=== PATIENT | female | born 1965 | race Caucasian/White ===

== ENCOUNTER 2017-01-08 15:53 | Emergency (ER) | payer OTHER, MEDICARE ==
[~2017-01-08] VITALS: Ht 162.6 cm; Wt 71.2 kg
[~2017-01-08 15:53] MED LIST: ALPR0.254 PO; ATOR40TA70 PO; CEFD300C3 PO; DIPH1TAB25 PO; ESTR42.52 VG; IMAT400T PO; LANS30CA PO; LEVO200T6 PO; MULT-985 PO; ONDA8TAB13 PO; PNV1TABL82 PO; POLY15DR14 OU; VALA1000 PO; [UNRECOGNIZED DRUG - CODE] INJ
[2017-01-08] MEDS ORDERED: LEVO175T5 (16:11)
--- NOTE | 2017-01-08 16:21 | ED Headache ---
General Chief Complaint: Head/Cervical Problems Stated Complaint: HEAD PAIN Nursing Triage Note: ARRIVED VIA AMB TO ROOM 08 WITH COMPLAINTS OF A AREA ON TOP OF HER HEAD THAT STARTED A BUMP THAT IS NOW RED ET PAINFUL AND SHE THINKS IT IS SPREADING INTO HER FOREHEAD. Nursing Sepsis Screen: No Definite Risk Source: patient History of Present Illness Time seen by provider: 16:16 Initial Comments Patient had the freezer door hit the top of her head knocking her sunglasses a few days ago. That area has now become red swollen tender and painful. He thinks it is spreading. No fevers. She has had upper respiratory infection symptoms. Allergies and Home Medications Allergies Coded Allergies: No Known Drug Allergies (Unverified , 10/08/15) Home Medications Levothyroxine Sodium 175 Mcg Tablet #90 (Reported) Constitutional: no symptoms reported Respiratory: no symptoms reported Cardiovascular: no symptoms reported Skin: see HPI Past Cssnrbc-Jazevn-Dffees Hx Patient Social History Recent Foreign Travel: No Contact w/Someone Who Travel: No Recent Infectious Disease Expo: No Recent Hopitalizations: No Immunizations Up To Date Tetanus Booster (TDap): Unknown Date of Influenza Vaccine: Oct 10, 2015 Surgeries HX Surgeries: Yes (bone marrow transplant, spleen) Surgeries: Gallbladder Respiratory Hx Respiratory Disorders: Yes Cardiovascular Hx Cardiac Disorders: Yes Cardiac Disorders: High Cholesterol Neurological Hx Neurological Disorders: No Reproductive System Hx Reproductive Disorders: No Sexually Transmitted Disease: No Genitourinary Hx Genitourinary Disorders: No Gastrointestinal Hx Gastrointestinal Disorders: No Musculoskeletal Hx Musculoskeletal Disorders: No Endocrine Hx Endocrine Disorders: Yes Endocrine Disorders: Hypothyroidsim HEENT HX ENT Disorders: No Cancer Hx Cancer: Yes Cancer: Leukemia Psychosocial Hx Psychiatric Problems: No Integumentary HX Skin/Integumentary Disorder: No Blood Transfusions Hx Blood Disorders: No Adverse Reaction to a Blood Tr: Yes (high fever) Reviewed Nursing Assessment Reviewed/Agree w Nursing PMH: Yes Physical Exam Vital Signs Vital Sign - Last 12Hours 01/08/17 16:06 Temp 97.7 Pulse 99 Resp 18 B/P 155/98 Pulse Ox 98 Capillary Refill : Less Than 3 Seconds General Appearance: WD/WN no apparent distress Neck: supple Cardiovascular: regular rate, rhythm Respiratory: lungs clear Gastrointestinal: soft Extremities: normal inspection Psychiatric: alert Crainal Nerves: normal speech PERRL Coordination/Gait: normal gait Skin: normal color warm/dry other (there is a quarter sized area of redness swelling and tenderness erythema to the vertex of the scalp. No fluctuance) Progress/Results/Core Measures Results/Orders Vital Signs/I&O Vital Sign - Last 12Hours 01/08/17 16:06 Temp 97.7 Pulse 99 Resp 18 B/P 155/98 Pulse Ox 98 Blood Pressure Mean: 117 Departure Impression Impression: Primary Impression: Cellulitis of scalp Disposition: HOME, SELF-CARE Condition: Stable Departure-Patient Inst. Decision time for Depature: 16:17 Referrals: MALA PEREZ DO (PCP/Family) Primary Care Physician Patient Instructions: Cellulitis and Erysipelas (Skin Infections) Scripts Terbinafine HCl (Lamisil At)30 Gm Cream..g.30 Gm TP BID #1 TUBE Prov:BROOK WALLACE MD 01/08/17 Cephalexin (Keflex)500 Mg [id number] Mg PO TID #30 CAP Prov:BROOK WALLACE MD 01/08/17 BROOK WALLACE MD Jan 08, 2017 16:21
[2017-01-08] MEDS ORDERED: TERB12CR3 TP (16:23)
[2017-01-08] MEDS ORDERED: CEPH-507 PO (16:23)
[2017-01-08 16:26] VITALS: BP 155/98
== END 2017-01-08 16:26 | disposition home or self-care (01) ==
LOC: EDUNIT# 15:53 → ER 15:55
DX: L03.811 Cellulitis of head [any part, except face] (principal)
CPT/HCPCS: 99282

== ENCOUNTER → 2017-07-30 | Outpatient (CLI) | payer OTHER, MEDICARE ==
[~2017-07-30] MED LIST changes: +CEPH-507 PO; +LEVO175T5; +OCTR10VI3 INJ; +TERB12CR3 TP; -[UNRECOGNIZED DRUG - CODE] INJ
--- NOTE | 2017-07-30 15:32 | Diagnostic Imaging Report ---
PROCEDURE: US Thyroid. TECHNIQUE: Multiple Real-time grayscale images were obtained of the thyroid in various projections. INDICATION: Thyromegaly. Thyroid nodule. FINDINGS: Both lobes measure approximately 1 x 2 cm. No solid or cystic mass is seen within either lobe. No abnormality adjacent to either lobe is seen. There is no abnormal vascularity. IMPRESSION: No nodule or other abnormality is seen. Dictated by: Dictated on workstation # [id number]
== END ==
LOC: RAD 11:37
PROVIDERS: ATTEND Internal Medicine
DX: E04.1 Nontoxic single thyroid nodule (principal)
CPT/HCPCS: 76536

== ENCOUNTER 2018-08-06 15:38 | Observation (INO) | payer OTHER, MEDICARE ==
[~2018-08-06] VITALS: Ht 162.6 cm; Wt 74.1 kg
[~2018-08-06 15:38] MED LIST changes: -LEVO175T5; +LEVO175T5 PO
[2018-08-06] MEDS ORDERED: DOCUSATE SODIUM 100 MG (COLACE) CAP PO PRN (15:45)
[2018-08-06] MEDS ORDERED: HYDROcodone/APAP 5 MG/325 MG (LORTAB) TAB PO PRN (15:45)
[2018-08-06] MEDS ORDERED: ALPRAZolam 0.25 MG (XANAX) TAB PO PRN (15:45)
[2018-08-06] MEDS ORDERED: IBUPROFEN TABLET 200 MG TAB PO PRN (15:45)
[2018-08-06] MEDS ORDERED: ONDANSETRON 4 MG/2 ML (SDV) Z0FRAN IVP PRN (15:45)
[2018-08-06] MEDS ORDERED: PIPERACILLIN SODIUM/TAZOBACTAM 4.5 GM in NS (IVPB) 100 ML IV NR (15:45)
[2018-08-06] MEDS ORDERED: ACETAMINOPHEN 500 MG TAB (TYLENOL) PO PRN (15:45)
[2018-08-06 16:15] VITALS: BP 132/82
[2018-08-06] MEDS ORDERED: LANS30CA PO (16:32)
[2018-08-06] MEDS ORDERED: ATOR10TA66 PO (16:32)
[2018-08-06] MEDS ORDERED: OMEG-105 PO (16:32)
[2018-08-06] MEDS ORDERED: URSO300C3 PO (16:32)
[2018-08-06] MEDS ORDERED: VALA1000 PO (16:32)
[2018-08-06] MEDS ORDERED: RT-ALBUTEROL SULF 2.5 MG/3 ML PRE-MIX VIAL INH PRN (17:00)
--- NOTE | 2018-08-06 17:08 | Diagnostic Imaging Report ---
EXAM: CHEST PA/LAT (2 VIEW) INDICATION: Coughing. Wheezing. Dizziness. Shortness of air. COMPARISON: Chest radiograph 10/08/2015. FINDINGS: Normal heart size and pulmonary vascularity. Calcified aorta. No focal pulmonary opacity, pleural effusion or pneumothorax. Cholecystectomy clips. IMPRESSION: No acute cardiopulmonary findings. Dictated by: Dictated on workstation # [id number]
[2018-08-06 17:28] LABS: BASOPHILS # (AUTO) 0.3 10^3/uL (0.0-0.1); BASOPHILS % (AUTO) 2 % (0-10); EOSINOPHILS # (AUTO) 0.5 10^3/uL (0.0-0.3); EOSINOPHILS % (AUTO) 4 % (0-10); HEMATOCRIT 43 % (35-52); HEMOGLOBIN 14.6 G/DL (11.5-16.0); LYMPHOCYTES # (AUTO) 4.6 X 10^3 (1.0-4.0); LYMPHOCYTES % (AUTO) 31 % (12-44); MEAN CORPUSCULAR HEMOGLOBIN 32 PG (25-34); MEAN CORPUSCULAR HGB CONC 34 G/DL (32-36); MEAN CORPUSCULAR VOLUME 93 FL (80-99); MONOCYTES # (AUTO) 1.6 X 10^3 (0.0-1.0); MONOCYTES % (AUTO) 11 % (0-12); NEUTROPHILS # (AUTO) 7.8 X 10^3 (1.8-7.8); NEUTROPHILS % (AUTO) 53 % (42-75); PLATELET COUNT 369 10^3/uL (130-400); RED BLOOD COUNT 4.57 10^6/uL (4.35-5.85); RED CELL DISTRIBUTION WIDTH 14.3 % (10.0-14.5); WHITE BLOOD COUNT 14.7 10^3/uL (4.3-11.0)
[2018-08-06] MEDS: NS IV 1000 ML 1,000 ML IV SCH (17:37)
[2018-08-06] MEDS: HYDROCODONE/CHLOR 10MG/5 ML (TUSSIONEX SUSP) 5ML UDC PO SCH ×2 (17:37→20:48)
[2018-08-06] MEDS: methylPREDNISolone 40 MG/ML (Solu-MEDROL) VIAL IV SCH (17:40)
[2018-08-06 17:43] LABS: ALBUMIN 4.4 GM/DL (3.2-4.5); BILIRUBIN,TOTAL 0.5 MG/DL (0.1-1.0); CREATININE SERUM 1.11 MG/DL (0.60-1.30); POTASSIUM 3.6 MMOL/L (3.6-5.0); TOTAL PROTEIN 8.7 GM/DL (6.4-8.2)
[2018-08-06 17:49] LABS: BAND NEUTROPHILS 4 %; BASOPHILS % (MANUAL) 1 %; EOSINOPHILS % (MANUAL) 2 %; LYMPHOCYTES % (MANUAL) 38 %; MONOCYTES % (MANUAL) 7 %; NEUTROPHILS % (MANUAL) 48 %; RBC MORPH NORMAL
[2018-08-06] MEDS: RT-ALBUTEROL SULF 2.5 MG/3 ML PRE-MIX VIAL INH SCH ×2 (19:16→22:17)
[2018-08-06 19:30] VITALS: BP 136/84
[2018-08-06 20:35] LABS: BILIRUBIN,URINE NEGATIVE (NEGATIVE); CLARITY,URINE CLEAR; COLOR,URINE YELLOW; GLUCOSE, URINE (UA) NEGATIVE (NEGATIVE); KETONES,URINE NEGATIVE (NEGATIVE); LEUKOCYTE ESTERASE ,URINE NEGATIVE (NEGATIVE); NITRITE,URINE NEGATIVE (NEGATIVE); PH,URINE 6 (5-9); PROTEIN,URINE 4+ (NEGATIVE); UROBILINOGEN,URINE NORMAL (NORMAL)
[2018-08-06] MEDS: PIPERACILLIN SODIUM/TAZOBACTAM 4.5 GM in NS (IVPB) 100 ML IV SCH (20:46)
[2018-08-06 20:49] LABS: BACTERIA,URINE TRACE /HPF; SQUAMOUS EPITHELIAL CELL,UR 0-2 /HPF; WBC,URINE RARE /HPF
[2018-08-06 23:54] VITALS: BP 115/60
[2018-08-07] MEDS: NS IV 1000 ML 1,000 ML IV SCH ×2 (01:43→08:19)
[2018-08-07] MEDS: methylPREDNISolone 40 MG/ML (Solu-MEDROL) VIAL IV SCH ×3 (01:43→12:36)
[2018-08-07] MEDS: RT-ALBUTEROL SULF 2.5 MG/3 ML PRE-MIX VIAL INH SCH ×3 (02:36→11:38)
[2018-08-07 03:19] VITALS: BP 130/71
[2018-08-07] MEDS: PIPERACILLIN SODIUM/TAZOBACTAM 4.5 GM in NS (IVPB) 100 ML IV SCH ×2 (04:10→12:36)
[2018-08-07 06:25] LABS: BASOPHILS % (AUTO) 0 % (0-10); EOSINOPHILS % (AUTO) 0 % (0-10); HEMATOCRIT 38 % (35-52); HEMOGLOBIN 12.7 G/DL (11.5-16.0); LYMPHOCYTES % (AUTO) 17 % (12-44); MEAN CORPUSCULAR HEMOGLOBIN 31 PG (25-34); MEAN CORPUSCULAR HGB CONC 33 G/DL (32-36); MEAN CORPUSCULAR VOLUME 94 FL (80-99); MEAN PLATELET VOLUME 10.5 FL (7.4-10.4); MONOCYTES # (AUTO) 0.2 X 10^3 (0.0-1.0); MONOCYTES % (AUTO) 2 % (0-12); NEUTROPHILS # (AUTO) 9.3 X 10^3 (1.8-7.8); NEUTROPHILS % (AUTO) 81 % (42-75); PLATELET COUNT 336 10^3/uL (130-400); RED BLOOD COUNT 4.04 10^6/uL (4.35-5.85); RED CELL DISTRIBUTION WIDTH 14.5 % (10.0-14.5); WHITE BLOOD COUNT 11.5 10^3/uL (4.3-11.0)
[2018-08-07 06:47] LABS: ALBUMIN 3.9 GM/DL (3.2-4.5); BILIRUBIN,TOTAL 0.2 MG/DL (0.1-1.0); CALCIUM 9.6 MG/DL (8.5-10.1); CREATININE SERUM 1.21 MG/DL (0.60-1.30); POTASSIUM 4.1 MMOL/L (3.6-5.0); TOTAL PROTEIN 7.2 GM/DL (6.4-8.2)
[2018-08-07 08:00] VITALS: BP 138/76
[2018-08-07] MEDS ORDERED: PREN-102 PO (08:38)
[2018-08-07] MEDS: HYDROCODONE/CHLOR 10MG/5 ML (TUSSIONEX SUSP) 5ML UDC PO SCH (09:54)
--- NOTE | 2018-08-07 09:56 | History & Physical-Hospitalist ---
SHERLYN LOPEZ MEDICAL STUDENT 08/07/18 0956: History of Present Illness HPI/Chief Complaint Ms. Bowman is a 53 year old female with a history of AML and CML s/p chemo, radiation, splenectomy, and BMT admitted for bacterial bronchitis vs. pneumonia. She believes this began, as it did when she was hospitalized for [facility] previously, after being exposed to aerosolized rat droppings. She had one week of congestion, headache, sinus pain and pressure that progressed. Over the 2 days prior to admission, she was having a productive cough, subjective fever, shortness of breath, and constant substernal chest pain that worsened with coughing. She took Dayquil, Nyquil, and ibuprofen for her symptoms. The Dayquil made her nap for several hours per day, which she states led to decreased PO intake. She delayed visiting Dr. Perez in clinic as she feared admission to the hospital. Since being admitted last night, she states that she is feeling much better. She now denies productive cough, chest pain, fever/ chills, and congestion. Date Seen 08/07/18 Time Seen by Provider: 09:00 Attending Physician Taina Perez DO PCP Taina Perez DO Referring Physician Date of Admission Aug 06, 2018 at 16:04 Home Medications & Allergies Home Medications Reviewed patient Home Medication Reconciliation performed by pharmacy medication reconciliations networking technician and/or nursing. Patients Allergies have been reviewed. Allergies Allergies Coded Allergies No Known Drug Allergies (Jqjtruhrvo93/8/15) Past Qnsihma-Omsizw-Pccbhd Hx Patient Social History Marrital Status: Number of living children: 3 Employed/Student: unemployed Alcohol Use: Denies Use Recreational Drug Use: No Smoking Status: Never a Smoker Physical Abuse Screen: No Sexual Abuse: No Recent Foreign Travel: No Contact w/other who traveled: No Recent Hopitalizations: No Recent Infectious Disease Expo: No Immunizations Up To Date Tetanus Booster (TDap): Unknown Date of Influenza Vaccine: Oct 10, 2015 Seasonal Allergies Seasonal Allergies: No Past Medical History Surgeries: Abdominal (Splenectomy, ovarian cyst removal), Gallbladder, Hysterectomy Respiratory: Asthma Currently Using CPAP: No Currently Using BIPAP: No Cardiac: High Cholesterol Reproductive: No Sexually Transmitted Disease: No Gastrointestinal: Gastroesophageal Reflux Musculoskeletal: Arthritis Endocrine: Hypothyroidsim Cancer: Leukemia What Type of Treatment Did You: Chemotherapy, Radiation Cancer: Oct History of Blood Disorders: No Adverse Reaction to Blood Lan: Yes (high fever) Review of Systems Constitutional: chills, fever EENTM: nose congestion Respiratory: see HPI, cough, short of breath Cardiovascular: chest pain Gastrointestinal: no symptoms reported Genitourinary: no symptoms reported Musculoskeletal: no symptoms reported Physical Exam Physical Exam Vital Signs Vital Signs - First Documented 08/06/18 08/06/18 16:15 16:45 Temp 100.4 Pulse 128 Resp 18 B/P (MAP) 132/82 (99) Pulse Ox 94 O2 Delivery Room Air FiO2 21 Capillary Refill : Height, Weight, BMI Height: 5'4.00" Weight: 163lbs. 4.8oz. 74.539289th; 28.0 BMI Method:Stated General Appearance: No Apparent Distress HEENT: Moist Mucous Membranes Respiratory: Chest Non Tender, Crackles (Faint occasional crackles at right lung base. Otherwise clear. ) Cardiovascular: No Edema, No Murmur, Tachycardia Skin: Normal Color, Warm/Dry Results Results/Procedures Labs Laboratory Tests 08/06/18 17:04 08/06/18 17:12 08/07/18 05:35 Patient resulted labs reviewed. Assessment/Plan Admission Diagnosis Fever of unknown origin Bronchitis Admission Status: Observation Assessment and Plan 53 year old female with history of AML and CML s/p chemo, radiation, and BMT admitted for fever likely resulting from bronchitis or atypical pneumonia given negative CXR. Bronchitis: White count trending down, pt afebrile overnight. -Sputum cultures pending, influenza negative. Will consider urine Legionella test. -Receiving methylprednisolone. Will discharge with PO steroids for 5 day course. -Zosyn Q8H. Will likely transition to doxycycline or azithromycin at discharge for 7 day course. Transaminitis: Could be secondary to atypical pneumonia. Patient denies heavy alcohol use. Trending down without further workup required. Proteinuria: Isolated without elevation in Cr. Consider microalbumin/Cr ratio. Clinical Quality Measures DVT/VTE Risk/Contraindication: Risk Factor Score Per Nursin RFS Level Per Nursing on Admit: 4+=Very High TAINA PEREZ DO 08/07/18 1233: History of Present Illness HPI/Chief Complaint CC: Cough with fever HPI: This is a 53yoWF clinic patient of mine with h/o AML and CML who presented to my clinic with fever and cough. She appeared to be ill and dehydrated and considering her h/o leukemia we decided to place in observation for CXR, labs and IVF along with IV steroids and IV abx empirically. Today she is feeling much better and wants to go home. Source: patient Exam Limitations: no limitations Time Seen by Provider: 11:00 Home Medications & Allergies Home Medications Reviewed Past Uaukohu-Jkytnz-Vloypw Hx Past Med/Social Hx: Reviewed Nursing Past Med/Soc Hx, Reviewed and Corrections made Patient Social History Marrital Status: Employed/Student: unemployed Alcohol Use: Denies Use Smoking Status: Never a Smoker Past Medical History Surgeries: Abdominal (Splenectomy, ovarian cyst removal), Gallbladder, Hysterectomy Respiratory: Asthma Cardiac: High Cholesterol Gastrointestinal: Gastroesophageal Reflux Musculoskeletal: Arthritis Endocrine: Hypothyroidsim Cancer: Leukemia What Type of Treatment Did You: Chemotherapy, Radiation Family History Hypertension Review of Systems Constitutional: see HPI, chills, fever, malaise, weakness EENTM: no symptoms reported Respiratory: see HPI, cough, short of breath, wheezing Cardiovascular: chest pain Gastrointestinal: no symptoms reported Genitourinary: no symptoms reported Musculoskeletal: no symptoms reported Skin: no symptoms reported Psychiatric/Neurological: No Symptoms Reported All Other Systems Reviewed Negative Unless Noted: Yes Physical Exam Physical Exam General Appearance: No Apparent Distress, WD/WN, Chronically ill, Other (ill) Eyes: Bilateral Eye Normal Inspection, Bilateral Eye PERRL HEENT: PERRL/EOMI, TMs Normal, Normal ENT Inspection, Pharynx Normal Neck: Full Range of Motion, Normal Inspection, Non Tender, Supple, Carotid Bruit Respiratory: Chest Non Tender, No Accessory Muscle Use, No Respiratory Distress , Crackles (Faint occasional crackles at right lung base. Otherwise clear. ), Decreased Breath Sounds, Wheezing Cardiovascular: Regular Rate, Rhythm, No Edema, No Gallop, No JVD, No Murmur, Normal Peripheral Pulses, Tachycardia Gastrointestinal: Normal Bowel Sounds, No Organomegaly, No Pulsatile Mass, Non Tender, Soft Back: Normal Inspection, No CVA Tenderness, No Vertebral Tenderness Extremity: Normal Capillary Refill, Normal Inspection, Normal Range of Motion, Non Tender, No Calf Tenderness, No Pedal Edema Neurologic/Psychiatric: Alert, Oriented x3, No Motor/Sensory Deficits, Normal Mood/Affect Skin: Normal Color, Warm/Dry Lymphatic: No Adenopathy Assessment/Plan Admission Diagnosis Acute bronchitis in leukemia survivor Admission Status: Observation Assessment and Plan Plan: DC home LFT elevation is chronic Diagnosis/Problems Diagnosis/Problems (1) Fever of unknown origin Status: Acute (2) Bronchitis Status: Acute (3) Wheezing Status: Acute (4) Leukocytosis Status: Acute Qualifiers: Leukocytosis type: leukemoid reaction Qualified Codes: D72.823 - Leukemoid reaction (5) Elevated liver enzymes Status: Chronic (6) Hyperlipidemia Status: Chronic Qualifiers: Hyperlipidemia type: pure hypercholesterolemia Qualified Codes: E78.00 - Pure hypercholesterolemia, unspecified SHERLYN LOPEZ MEDICAL STUDENT Aug 07, 2018 09:56 TAINA PEREZ DO Aug 07, 2018 12:33
[2018-08-07] MEDS ORDERED: VALACYCLOVIR 500 MG TAB (VALTREX) PO PRN (11:45)
[2018-08-07] MEDS ORDERED: PRED10TA22 PO (11:50)
[2018-08-07] MEDS ORDERED: CEFD300C3 PO (11:50)
[2018-08-07] MEDS ORDERED: ALBU1.25 IH (11:50)
[2018-08-07] MEDS ORDERED: HYDR473S34 PO (11:50)
[2018-08-07 12:00] VITALS: BP 144/70
[2018-08-07 13:40] VITALS: BP 144/70
[2018-08-07] MEDS ORDERED: OMEGA 3 (FISH OIL) 1000 MG CAP PO SCH (17:00)
[2018-08-07] MEDS ORDERED: ATORVASTATIN 10 MG (LIPITOR) TABLET PO SCH (21:00)
[2018-08-08] MEDS ORDERED: LEVOTHYROXINE 50 MCG (LEVOTHROID) TAB PO SCH (06:30)
[2018-08-08] MEDS ORDERED: LEVOTHYROXINE 125 MCG (LEVOTHROID) TABLET PO SCH (06:30)
[2018-08-08] MEDS ORDERED: PANTOPRAZOLE 40 MG (PROTONIX) TAB PO SCH (07:00)
[2018-08-08] MEDS ORDERED: PRENATAL VITAMIN 1 EA TAB PO SCH (07:00)
== END 2018-08-07 11:50 | disposition home or self-care (01) ==
LOC: 4TH 16:04 → UNDOADMOB 16:04 → 4TH 16:10 → UNDODISOB 08-07 13:40
PROVIDERS: ADMIT Internal Medicine; ATTEND Internal Medicine
DX: J20.9 Acute bronchitis, unspecified (principal); R50.9 Fever, unspecified; R06.2 Wheezing; D72.823 Leukemoid reaction; R74.8 Abnormal levels of other serum enzymes; C92.90 Myeloid leukemia, unspecified, not having achieved remission; E78.00 Pure hypercholesterolemia, unspecified; K21.9 Gastro-esophageal reflux disease without esophagitis; E03.9 Hypothyroidism, unspecified; Z92.21 Personal history of antineoplastic chemotherapy; Z92.3 Personal history of irradiation; R80.9 Proteinuria, unspecified
CPT/HCPCS: 36415; 71046; 80053; 81000; 83605; 85007; 85025; 85027; 87040; 87070; 87205; 87804; 94640; 94760; 99211; G0378

== ENCOUNTER 2018-10-06 15:29 | Inpatient (IN) | payer OTHER, MEDICARE ==
[~2018-10-06] VITALS: Ht 162.6 cm; Wt 74.8 kg
[~2018-10-06 15:29] MED LIST changes: +ALBU1.25 IH; +ATOR10TA66 PO; +HYDR473S34 PO; +OMEG-105 PO; +PRED10TA22 PO; +PREN-102 PO; +URSO300C3 PO
[2018-10-06] MEDS ORDERED: ACETAMINOPHEN 500 MG TAB (TYLENOL) PO PRN (15:45)
[2018-10-06] MEDS ORDERED: hydrALAZINE (APRESOLINE) 25 MG TAB PO PRN (15:45)
[2018-10-06] MEDS ORDERED: CALCIUM CARBONATE 500 MG (TUMS) TAB.CHEW PO PRN (15:45)
[2018-10-06] MEDS ORDERED: DOCUSATE SODIUM 100 MG (COLACE) CAP PO PRN (15:45)
[2018-10-06] MEDS ORDERED: IBUPROFEN TABLET 200 MG TAB PO PRN (15:45)
[2018-10-06] MEDS ORDERED: ONDANSETRON 4 MG (ZOFRAN) ORAL DISSOLVE TAB PO PRN (15:45)
[2018-10-06] MEDS ORDERED: HYDROcodone/APAP 5 MG/325 MG (LORTAB) TAB PO PRN (15:45)
[2018-10-06] MEDS ORDERED: ALPRAZolam 0.25 MG (XANAX) TAB PO PRN (15:45)
[2018-10-06] MEDS ORDERED: ONDANSETRON 4 MG/2 ML (SDV) Z0FRAN IVP PRN (15:45)
[2018-10-06 15:55] VITALS: BP 146/75
--- NOTE | 2018-10-06 15:58 | Progress Note-Hospitalist ---
Progress Note Patient presented to my office as a work in [place] due to cold symptoms for the past 3 days which have worsened No chest pain, no dyspnea Pt with recent URI which required admit to hospital for same symptoms of wheezing PFT was scheduled for yesterday but did not show up due to illness and sick in bed Fadi and Landen will be maintained after acute illness to help with asthma- like recurrences MALA PEREZ DO Oct 06, 2018 15:58
[2018-10-06] MEDS ORDERED: PIPERACILLIN SODIUM/TAZOBACTAM 4.5 GM in NS (IVPB) 100 ML IV NR (16:30)
--- NOTE | 2018-10-06 16:39 | Diagnostic Imaging Report ---
INDICATION: Wheezing and shortness of air. TIME OF EXAM: 04:55 p.m. Correlation is made with prior chest from 08/06/2018. FINDINGS: The heart size is normal. The pulmonary vascularity is unremarkable. The lungs are clear. No infiltrate, effusion or pneumothorax is detected. IMPRESSION: No acute cardiopulmonary process is detected. Dictated by: Dictated on workstation # [id number]
[2018-10-06] MEDS ORDERED: RT-ALBUTEROL SULF 2.5 MG/3 ML PRE-MIX VIAL INH PRN (16:45)
[2018-10-06] MEDS: ENOXAPARIN 40 MG/0.4 ML (LOVENOX) SYR SC SCH (16:54)
[2018-10-06] MEDS: NS IV 1000 ML 1,000 ML IV SCH (16:54)
[2018-10-06] MEDS: methylPREDNISolone 125 MG (Solu-MEDROL) VIAL IV SCH ×2 (17:47→23:43)
[2018-10-06] MEDS: RT-ALBUTEROL SULF 2.5 MG/3 ML PRE-MIX VIAL INH SCH ×2 (17:52→22:21)
[2018-10-06 18:00] LABS: BASOPHILS # (AUTO) 0.3 10^3/uL (0.0-0.1); BASOPHILS % (AUTO) 2 % (0-10); EOSINOPHILS # (AUTO) 1.1 10^3/uL (0.0-0.3); EOSINOPHILS % (AUTO) 8 % (0-10); HEMATOCRIT 40 % (35-52); HEMOGLOBIN 13.5 G/DL (11.5-16.0); LYMPHOCYTES # (AUTO) 4.9 X 10^3 (1.0-4.0); LYMPHOCYTES % (AUTO) 37 % (12-44); MEAN CORPUSCULAR HEMOGLOBIN 31 PG (25-34); MEAN CORPUSCULAR HGB CONC 34 G/DL (32-36); MEAN CORPUSCULAR VOLUME 92 FL (80-99); MEAN PLATELET VOLUME 10.3 FL (7.4-10.4); MONOCYTES # (AUTO) 1.4 X 10^3 (0.0-1.0); MONOCYTES % (AUTO) 11 % (0-12); NEUTROPHILS # (AUTO) 5.6 X 10^3 (1.8-7.8); NEUTROPHILS % (AUTO) 42 % (42-75); PLATELET COUNT 315 10^3/uL (130-400); RED BLOOD COUNT 4.33 10^6/uL (4.35-5.85); RED CELL DISTRIBUTION WIDTH 13.7 % (10.0-14.5); WHITE BLOOD COUNT 13.2 10^3/uL (4.3-11.0)
[2018-10-06] MEDS ORDERED: methylPREDNISolone 40 MG/ML (Solu-MEDROL) VIAL IV SCH (18:00)
[2018-10-06 18:04] LABS: BILIRUBIN,URINE NEGATIVE (NEGATIVE); CLARITY,URINE CLEAR; COLOR,URINE YELLOW; GLUCOSE, URINE (UA) NEGATIVE (NEGATIVE); KETONES,URINE NEGATIVE (NEGATIVE); LEUKOCYTE ESTERASE ,URINE NEGATIVE (NEGATIVE); NITRITE,URINE NEGATIVE (NEGATIVE); PH,URINE 6.5 (5-9); PROTEIN,URINE 1+ (NEGATIVE); UROBILINOGEN,URINE NORMAL (NORMAL)
[2018-10-06 18:18] LABS: ALANINE AMINOTRANSFERASE 89 U/L (0-55); ALBUMIN 4.4 GM/DL (3.2-4.5); ALKALINE PHOSPHATASE 110 U/L (40-136); BILIRUBIN,TOTAL 0.7 MG/DL (0.1-1.0); BUN/CREATININE RATIO 10; CALCIUM 10.1 MG/DL (8.5-10.1); CARBON DIOXIDE 23 MMOL/L (21-32); CHLORIDE 100 MMOL/L (98-107); GFR ESTIMATED > 60; GLUCOSE 93 MG/DL (70-105); POTASSIUM 3.8 MMOL/L (3.6-5.0); SODIUM 139 MMOL/L (135-145); TOTAL PROTEIN 7.9 GM/DL (6.4-8.2)
[2018-10-06 18:22] LABS: BACTERIA,URINE NEGATIVE /HPF; SQUAMOUS EPITHELIAL CELL,UR RARE /HPF
[2018-10-06 19:30] VITALS: BP 136/83
[2018-10-06] MEDS: MONTELUKAST 10 MG (SINGULAIR) TAB PO SCH (21:18)
[2018-10-06] MEDS: BENZONATATE 100 MG (TESSALON) CAPSULE PO SCH (21:18)
[2018-10-06] MEDS: HYDROCODONE/CHLOR 10MG/5 ML (TUSSIONEX SUSP) 5ML UDC PO SCH (21:19)
[2018-10-06] MEDS: RT-BUDESONIDE NEBS 0.5 MG/2ML (PULMICORT) AMP INH SCH (22:21)
[2018-10-06] MEDS: PIPERACILLIN SODIUM/TAZOBACTAM 4.5 GM in NS (IVPB) 100 ML IV SCH (23:43)
[2018-10-07] VITALS: BP 124/74
[2018-10-07] MEDS: RT-ALBUTEROL SULF 2.5 MG/3 ML PRE-MIX VIAL INH SCH ×6 (02:19→21:40)
[2018-10-07] MEDS: NS IV 1000 ML 1,000 ML IV SCH (03:58)
[2018-10-07 04:31] VITALS: BP 110/60
[2018-10-07] MEDS: methylPREDNISolone 125 MG (Solu-MEDROL) VIAL IV SCH ×4 (05:24→22:46)
[2018-10-07 05:51] LABS: BASOPHILS # (AUTO) 0.1 10^3/uL (0.0-0.1); BASOPHILS % (AUTO) 1 % (0-10); EOSINOPHILS % (AUTO) 0 % (0-10); HEMATOCRIT 39 % (35-52); HEMOGLOBIN 13.1 G/DL (11.5-16.0); LYMPHOCYTES # (AUTO) 2.1 X 10^3 (1.0-4.0); LYMPHOCYTES % (AUTO) 20 % (12-44); MEAN CORPUSCULAR HEMOGLOBIN 31 PG (25-34); MEAN CORPUSCULAR HGB CONC 34 G/DL (32-36); MEAN CORPUSCULAR VOLUME 92 FL (80-99); MEAN PLATELET VOLUME 9.9 FL (7.4-10.4); MONOCYTES # (AUTO) 0.1 X 10^3 (0.0-1.0); MONOCYTES % (AUTO) 1 % (0-12); NEUTROPHILS # (AUTO) 8.3 X 10^3 (1.8-7.8); NEUTROPHILS % (AUTO) 78 % (42-75); PLATELET COUNT 356 10^3/uL (130-400); RED BLOOD COUNT 4.22 10^6/uL (4.35-5.85); WHITE BLOOD COUNT 10.6 10^3/uL (4.3-11.0)
[2018-10-07 06:14] LABS: ALBUMIN 4.1 GM/DL (3.2-4.5); BILIRUBIN,TOTAL 0.4 MG/DL (0.1-1.0); CALCIUM 9.6 MG/DL (8.5-10.1); CREATININE SERUM 0.97 MG/DL (0.60-1.30); POTASSIUM 3.6 MMOL/L (3.6-5.0); TOTAL PROTEIN 7.3 GM/DL (6.4-8.2)
[2018-10-07] MEDS: PIPERACILLIN SODIUM/TAZOBACTAM 4.5 GM in NS (IVPB) 100 ML IV SCH ×3 (06:48→22:47)
[2018-10-07 08:00] VITALS: BP 127/79
[2018-10-07] MEDS: BENZONATATE 100 MG (TESSALON) CAPSULE PO SCH ×3 (08:23→21:24)
[2018-10-07] MEDS: HYDROCODONE/CHLOR 10MG/5 ML (TUSSIONEX SUSP) 5ML UDC PO SCH ×2 (08:24→21:25)
[2018-10-07] MEDS ORDERED: FLUT1DIS28 INH (08:46)
[2018-10-07] MEDS ORDERED: ALBU1.25 NEB (08:46)
[2018-10-07] MEDS: RT-BUDESONIDE NEBS 0.5 MG/2ML (PULMICORT) AMP INH SCH ×2 (09:39→18:30)
--- NOTE | 2018-10-07 10:43 | History & Physical-Hospitalist ---
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 She was unable to go to her pulmonary function test appointment on Friday due to the illness because we were in the process of working up the recurrent upper respiratory illnesses and bronchitis and wheezing episodes she has had every 60 days 2 recently. At this current time patient is feeling much better with IV antibiotics empirically in addition to IV steroids and breathing treatments. She has never had a CT scan of her chest so we'll obtain that and we have started Singulair in addition to longer term usage of inhaled corticosteroids to minimize recurrent upper respiratory illnesses in the meantime. Checked meds and labs and we'll continue IV antibiotics and antitussives. Exam Limitations: no limitations Date Seen 10/07/18 Time Seen by a Provider: 10:30 Attending Physician Taina Perez DO PCP Taina Perez DO Referring Physician Date of Admission Oct 06, 2018 at 16:10 Home Medications & Allergies Home Medications Reviewed patient Home Medication Reconciliation performed by pharmacy medication reconciliations triage technician and/or nursing. Patients Allergies have been reviewed. Allergies Allergies Coded Allergies No Known Drug Allergies (Cppmdanvcx46/8/15) Past Mxfrcda-Uobayv-Qzodfp Hx Past Med/Social Hx: Reviewed Nursing Past Med/Soc Hx, Reviewed and Corrections made Patient Social History Marrital Status: Employed/Student: unemployed Alcohol Use: Occasionally Uses Number of Drinks Today: 0 Alcohol Beverage of Choice: Wine Recreational Drug Use: No Smoking Status: Never a Smoker Physical Abuse Screen: No Sexual Abuse: No Recent Foreign Travel: No Contact w/other who traveled: No Recent Hopitalizations: Yes (August) Immunizations Up To Date Tetanus Booster (TDap): Unknown Date of Influenza Vaccine: Sep 02, 2018 Seasonal Allergies Seasonal Allergies: No Past Medical History Surgeries: Abdominal, Gallbladder, Hysterectomy Respiratory: Asthma, Pneumonia Currently Using CPAP: No Currently Using BIPAP: No Cardiac: High Cholesterol Reproductive: No Sexually Transmitted Disease: No Gastrointestinal: Gastroesophageal Reflux Musculoskeletal: Arthritis Endocrine: Hypothyroidsim Cancer: Leukemia What Type of Treatment Did You: Chemotherapy, Radiation History of Blood Disorders: No Adverse Reaction to Blood Lan: Yes (high fever) Family History Hypertension Review of Systems Constitutional: see HPI, chills, fever, weakness EENTM: no symptoms reported Respiratory: cough, dyspnea on exertion, short of breath, wheezing Cardiovascular: no symptoms reported Gastrointestinal: no symptoms reported Genitourinary: no symptoms reported Musculoskeletal: no symptoms reported Skin: no symptoms reported Psychiatric/Neurological: No Symptoms Reported All Other Systems Reviewed Negative Unless Noted: Yes Physical Exam Physical Exam Vital Signs Vital Signs - First Documented 10/06/18 15:55 Temp 97.0 Pulse 98 Resp 16 B/P (MAP) 146/75 (98) Pulse Ox 95 O2 Delivery Room Air Capillary Refill : Height, Weight, BMI Height: 5'4.00" Weight: 165lbs. 0.0oz. 74.418318hy; 28.3 BMI Method:Stated General Appearance: No Apparent Distress, WD/WN Eyes: Bilateral Eye Normal Inspection, Bilateral Eye PERRL HEENT: PERRL/EOMI, TMs Normal, Normal ENT Inspection, Pharynx Normal Neck: Full Range of Motion, Normal Inspection, Non Tender, Supple, Carotid Bruit Respiratory: Chest Non Tender, No Accessory Muscle Use, No Respiratory Distress , Decreased Breath Sounds, Wheezing Cardiovascular: Regular Rate, Rhythm, No Edema, No Gallop, No JVD, No Murmur, Normal Peripheral Pulses Gastrointestinal: Normal Bowel Sounds, No Organomegaly, No Pulsatile Mass, Non Tender, Soft Back: Normal Inspection, No CVA Tenderness, No Vertebral Tenderness Extremity: Normal Capillary Refill, Normal Inspection, Normal Range of Motion, Non Tender, No Calf Tenderness, No Pedal Edema Neurologic/Psychiatric: Alert, Oriented x3, No Motor/Sensory Deficits, Normal Mood/Affect Skin: Normal Color, Warm/Dry Lymphatic: No Adenopathy Results Results/Procedures Labs Laboratory Tests 10/06/18 17:42 10/07/18 05:30 Patient resulted labs reviewed. Assessment/Plan Admission Diagnosis Assessment: Acute on chronic bacterial bronchitis with wheezing Presumed asthma awaiting pulmonary function test obtaining CT scan chest History of leukemia in remission managed by Praneeth Bardales Severe hyperlipidemia unable to tolerate high-dose statin due to elevated liver enzymes Periodic diarrhea chronic and type Hypothyroidism GERD Plan: Continue IV steroids Continue IV antibiotics empirically Check labs in a.m. Check CT chest Bowel regimen Discontinue telemetry Ambulate after Hep-Lock IV fluid Admission Status: Observation Diagnosis/Problems Diagnosis/Problems (1) Wheezing Status: Acute (2) Bronchitis Status: Acute (3) Leukemia in remission Status: Chronic Qualifiers: Leukemia type: unspecified Qualified Codes: C95.91 - Leukemia, unspecified , in remission (4) Hypothyroidism Status: Chronic Qualifiers: Hypothyroidism type: acquired Qualified Codes: E03.9 - Hypothyroidism, unspecified (5) BARDALES (nonalcoholic steatohepatitis) Status: Chronic (6) Elevated liver enzymes Status: Chronic (7) Hyperlipidemia Status: Chronic (8) Leukocytosis Status: Acute Qualifiers: Leukocytosis type: leukemoid reaction Qualified Codes: D72.823 - Leukemoid reaction Clinical Quality Measures DVT/VTE Risk/Contraindication: Risk Factor Score Per Nursin RFS Level Per Nursing on Admit: 1=Low/No VTE PPX TAINA PEREZ DO Oct 07, 2018 10:43
[2018-10-07] MEDS ORDERED: DOCUSATE SODIUM 100 MG (COLACE) CAP PO PRN (10:45)
[2018-10-07] MEDS ORDERED: DOCUSATE SODIUM 100 MG (COLACE) CAP PO NR (10:48)
[2018-10-07] MEDS ORDERED: POLYETHYLENE GLYCOL 17 GM (MIRALAX) PACK PO NR (10:48)
[2018-10-07 12:00] VITALS: BP 131/79
[2018-10-07] MEDS ORDERED: RECEIVED CONTRAST (Hold Metformin) IV SCH (15:00)
[2018-10-07] MEDS ORDERED: IOHEXOL 350 MG/ML 150 ML (OMNIPAQUE 350) VIAL IV ONE (15:00)
[2018-10-07] MEDS ORDERED: NS 250 ML (IVPB) BAG IV ONE (15:00)
[2018-10-07] MEDS: ENOXAPARIN 40 MG/0.4 ML (LOVENOX) SYR SC SCH (15:26)
--- NOTE | 2018-10-07 15:30 | Diagnostic Imaging Report ---
PROCEDURE: CT angiography of the chest with contrast. TECHNIQUE: Multiple contiguous axial images were obtained through the chest after uneventful bolus administration of intravenous contrast. 2D reconstructed CTA MIP acquisitions were also performed. INDICATION: Cough. No prior studies are available for comparison. The pulmonary arterial system is without evidence of thromboembolism. No filling defects are seen within central, lobar or segmental branches. The thoracic aorta is normal caliber. No dissection is seen. No pericardial or pleural fluid is identified. No axillary, hilar or mediastinal lymphadenopathy is seen. Parenchymal evaluation demonstrates minimal linear scarring or subsegmental atelectasis in the bilateral lower lobes. There is some minimal patchy groundglass infiltrate in the left upper lobe. Upper abdomen is unremarkable. IMPRESSION: No evidence of pulmonary embolism or thoracic aortic dissection. There is minimal bibasilar subsegmental atelectasis and minimal patchy infiltrate or atelectasis the left upper lobe. Study is otherwise unremarkable. Dictated by: Dictated on workstation # [id number]
[2018-10-07 15:45] VITALS: BP 131/74
[2018-10-07 19:30] VITALS: BP 128/73
[2018-10-07] MEDS: MONTELUKAST 10 MG (SINGULAIR) TAB PO SCH (21:24)
[2018-10-08 00:07] VITALS: BP 120/69
[2018-10-08] MEDS: RT-ALBUTEROL SULF 2.5 MG/3 ML PRE-MIX VIAL INH SCH ×6 (01:44→21:32)
[2018-10-08 04:08] VITALS: BP 105/57
[2018-10-08] MEDS: methylPREDNISolone 125 MG (Solu-MEDROL) VIAL IV SCH (05:17)
[2018-10-08] MEDS: PIPERACILLIN SODIUM/TAZOBACTAM 4.5 GM in NS (IVPB) 100 ML IV SCH ×3 (06:26→22:58)
[2018-10-08] MEDS: LEVOTHYROXINE 100 MCG (LEVOTHROID) TAB PO SCH (06:27)
[2018-10-08] MEDS: PANTOPRAZOLE 40 MG (PROTONIX) TAB PO SCH (06:27)
[2018-10-08] MEDS: LEVOTHYROXINE 75 MCG (LEVOTHROID) TABLET PO SCH (06:27)
[2018-10-08] MEDS: RT-BUDESONIDE NEBS 0.5 MG/2ML (PULMICORT) AMP INH SCH ×2 (06:41→18:52)
[2018-10-08 07:26] LABS: BASOPHILS % (AUTO) 0 % (0-10); EOSINOPHILS % (AUTO) 0 % (0-10); HEMATOCRIT 37 % (35-52); HEMOGLOBIN 12.5 G/DL (11.5-16.0); LYMPHOCYTES # (AUTO) 3.3 X 10^3 (1.0-4.0); LYMPHOCYTES % (AUTO) 11 % (12-44); MEAN CORPUSCULAR HEMOGLOBIN 31 PG (25-34); MEAN CORPUSCULAR HGB CONC 34 G/DL (32-36); MEAN CORPUSCULAR VOLUME 93 FL (80-99); MEAN PLATELET VOLUME 10.1 FL (7.4-10.4); MONOCYTES # (AUTO) 1.4 X 10^3 (0.0-1.0); MONOCYTES % (AUTO) 5 % (0-12); NEUTROPHILS # (AUTO) 25.4 X 10^3 (1.8-7.8); NEUTROPHILS % (AUTO) 84 % (42-75); PLATELET COUNT 353 10^3/uL (130-400); RED BLOOD COUNT 3.98 10^6/uL (4.35-5.85); RED CELL DISTRIBUTION WIDTH 14.7 % (10.0-14.5)
[2018-10-08 07:36] LABS: WHITE BLOOD COUNT 30.1 10^3/uL (4.3-11.0)
[2018-10-08 07:57] LABS: ALBUMIN 4.1 GM/DL (3.2-4.5); BILIRUBIN,TOTAL 0.4 MG/DL (0.1-1.0); CALCIUM 10.1 MG/DL (8.5-10.1); CREATININE SERUM 1.01 MG/DL (0.60-1.30); POTASSIUM 3.7 MMOL/L (3.6-5.0); TOTAL PROTEIN 7.6 GM/DL (6.4-8.2)
[2018-10-08 08:00] VITALS: BP 126/69
[2018-10-08] MEDS ORDERED: SENNA W/DOCUSATE (SENOKOT S) TABLET PO ONE (10:00)
[2018-10-08] MEDS ORDERED: LACTULOSE SYRUP 10GM/15ML (ENULOSE) 30ML UDC PO NR (10:00)
--- NOTE | 2018-10-08 10:19 | Diagnostic Imaging Report ---
INDICATION: Pneumonia, followup. TIME OF EXAM: 10:21 AM Correlation is made with prior chest from 10/06/2018. FINDINGS: The heart size is normal. Lungs appear to be clear. The pulmonary vascularity is within normal limits. No effusion or pneumothorax is seen. IMPRESSION: No acute cardiopulmonary process is identified. Dictated by: Dictated on workstation # [id number]
--- NOTE | 2018-10-08 10:23 | Progress Note-Hospitalist ---
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 She was unable to go to her pulmonary function test appointment on Friday due to the illness because we were in the process of working up the recurrent upper respiratory illnesses and bronchitis and wheezing episodes she has had every 60 days 2 recently. At this current time patient is feeling much better with IV antibiotics empirically in addition to IV steroids and breathing treatments. She has never had a CT scan of her chest so we'll obtain that and we have started Singulair in addition to longer term usage of inhaled corticosteroids to minimize recurrent upper respiratory illnesses in the meantime. Checked meds and labs and we'll continue IV antibiotics and antitussives. Subjective/Events-last exam Patient doing well WBC increased to 30k so will decrease steroids and recheck in the morning CT chest showed no mass only RUL pneumonia c/w presentation HLIVF yesterday and is eating and drinking well Ambulating well BM a bit but needs more help Singulair started yesterday Review of Systems Pulmonary: Cough Focused Exam Lactate Level 10/06/18 17:42: Lactic Acid Level 1.32 Objective Exam Vital Signs Vital Signs Date Time Temp Pulse Resp B/P (MAP) Pulse Ox O2 Delivery O2 Flow Rate FiO2 10/08/18 08:00 96.9 101 18 126/69 (88) 92 Room Air Capillary Refill : General Appearance: No Apparent Distress, WD/WN Respiratory: Chest Non Tender, No Accessory Muscle Use, No Respiratory Distress , Crackles, Wheezing Cardiovascular: Regular Rate, Rhythm, No Edema, No Gallop, No JVD, No Murmur, Normal Peripheral Pulses Neurologic/Psychiatric: Alert, Oriented x3, No Motor/Sensory Deficits, Normal Mood/Affect Results/Procedures Lab Laboratory Tests 10/08/18 06:59 Patient resulted labs reviewed. Assessment/Plan Assessment and Plan Assess & Plan/Chief Complaint RUL Pneumonia Wheezing with asthma-like condition pFT's pending Leukemia in remission HLP RICHARD Insomnia due to steroids Constipation Plan: IV abx Nebs O2 Decrease steroids Recheck labs in am Diagnosis/Problems Diagnosis/Problems (1) Pneumonia Status: Acute Qualifiers: Pneumonia type: due to unspecified organism Laterality: right Lung location: middle lobe of lung Qualified Codes: J18.1 - Lobar pneumonia, unspecified organism (2) Wheezing Status: Acute (3) Bronchitis Status: Acute (4) Leukemia in remission Status: Chronic Qualifiers: Leukemia type: unspecified Qualified Codes: C95.91 - Leukemia, unspecified , in remission (5) Hypothyroidism Status: Chronic Qualifiers: Hypothyroidism type: acquired Qualified Codes: E03.9 - Hypothyroidism, unspecified (6) RICHARD (nonalcoholic steatohepatitis) Status: Chronic (7) Elevated liver enzymes Status: Chronic (8) Hyperlipidemia Status: Chronic (9) Leukocytosis Status: Acute Qualifiers: Leukocytosis type: leukemoid reaction Qualified Codes: D72.823 - Leukemoid reaction (10) Constipation Status: Acute Qualifiers: Constipation type: slow transit constipation Qualified Codes: K59.01 - Slow transit constipation (11) Insomnia Status: Acute Qualifiers: Insomnia type: primary Qualified Codes: F51.01 - Primary insomnia Clinical Quality Measures DVT/VTE Risk/Contraindication: Risk Factor Score Per Nursin RFS Level Per Nursing on Admit: 1=Low/No VTE PPX MALA PEREZ DO Oct 08, 2018 10:23
[2018-10-08] MEDS: HYDROCODONE/CHLOR 10MG/5 ML (TUSSIONEX SUSP) 5ML UDC PO SCH ×2 (10:37→20:01)
[2018-10-08] MEDS: BENZONATATE 100 MG (TESSALON) CAPSULE PO SCH ×3 (10:37→20:01)
[2018-10-08 11:08] VITALS: BP 127/60
[2018-10-08 16:00] VITALS: BP 121/72
[2018-10-08] MEDS: ENOXAPARIN 40 MG/0.4 ML (LOVENOX) SYR SC SCH (16:34)
[2018-10-08 20:00] VITALS: BP 127/73
[2018-10-08] MEDS: methylPREDNISolone 40 MG/ML (Solu-MEDROL) VIAL IV SCH (20:01)
[2018-10-08] MEDS: ZOLPIDEM 5 MG (AMBIEN) TAB PO SCH (20:01)
[2018-10-08] MEDS: MONTELUKAST 10 MG (SINGULAIR) TAB PO SCH (20:01)
[2018-10-08] MEDS: SENNA W/DOCUSATE (SENOKOT S) TABLET PO SCH (20:01)
[2018-10-08] MEDS: LACTULOSE SYRUP 10GM/15ML (ENULOSE) 30ML UDC PO SCH (20:02)
[2018-10-09] VITALS (8 sets, daily range): BP systolic 119–147; BP diastolic 67–85
[2018-10-09] MEDS: RT-ALBUTEROL SULF 2.5 MG/3 ML PRE-MIX VIAL INH SCH ×5 (03:03→18:54)
[2018-10-09 04:28] LABS: BASOPHILS % (AUTO) 0 % (0-10); EOSINOPHILS % (AUTO) 0 % (0-10); HEMATOCRIT 37 % (35-52); HEMOGLOBIN 12.2 G/DL (11.5-16.0); LYMPHOCYTES # (AUTO) 4.1 X 10^3 (1.0-4.0); LYMPHOCYTES % (AUTO) 15 % (12-44); MEAN CORPUSCULAR HEMOGLOBIN 31 PG (25-34); MEAN CORPUSCULAR HGB CONC 33 G/DL (32-36); MEAN CORPUSCULAR VOLUME 94 FL (80-99); MEAN PLATELET VOLUME 10.3 FL (7.4-10.4); MONOCYTES # (AUTO) 1.5 X 10^3 (0.0-1.0); MONOCYTES % (AUTO) 5 % (0-12); NEUTROPHILS # (AUTO) 21.7 X 10^3 (1.8-7.8); NEUTROPHILS % (AUTO) 80 % (42-75); PLATELET COUNT 352 10^3/uL (130-400); RED BLOOD COUNT 3.89 10^6/uL (4.35-5.85); RED CELL DISTRIBUTION WIDTH 14.7 % (10.0-14.5); WHITE BLOOD COUNT 27.4 10^3/uL (4.3-11.0)
[2018-10-09 04:49] LABS: ALBUMIN 4.1 GM/DL (3.2-4.5); BILIRUBIN,TOTAL 0.4 MG/DL (0.1-1.0); CALCIUM 10.1 MG/DL (8.5-10.1); POTASSIUM 4.2 MMOL/L (3.6-5.0); TOTAL PROTEIN 7.6 GM/DL (6.4-8.2)
[2018-10-09 05:57] LABS: ANISOCYTOSIS SLIGHT; BAND NEUTROPHILS 2 %; BASOPHILS % (MANUAL) 0 %; EOSINOPHILS % (MANUAL) 0 %; LYMPHOCYTES % (MANUAL) 22 %; METAMYELOCYTES % 1 %; MONOCYTES % (MANUAL) 3 %; MYELOCYTES % 1 %; NEUTROPHILS % (MANUAL) 71 %; POLYCHROMASIA SLIGHT; SMUDGE CELLS MOD
[2018-10-09] MEDS: LEVOTHYROXINE 75 MCG (LEVOTHROID) TABLET PO SCH (05:57)
[2018-10-09] MEDS: LEVOTHYROXINE 100 MCG (LEVOTHROID) TAB PO SCH (05:57)
[2018-10-09] MEDS: PANTOPRAZOLE 40 MG (PROTONIX) TAB PO SCH (05:57)
[2018-10-09 05:58] LABS: HOWELL-JOLLY BODIES SLIGHT; TARGET CELLS SLIGHT; TOXIC GRANULATION/VACUOLAZATIO 1+
[2018-10-09] MEDS: PIPERACILLIN SODIUM/TAZOBACTAM 4.5 GM in NS (IVPB) 100 ML IV SCH ×3 (06:00→22:24)
[2018-10-09] MEDS: RT-BUDESONIDE NEBS 0.5 MG/2ML (PULMICORT) AMP INH SCH ×2 (06:17→18:54)
[2018-10-09] MEDS: BENZONATATE 100 MG (TESSALON) CAPSULE PO SCH ×3 (08:05→20:47)
[2018-10-09] MEDS: methylPREDNISolone 40 MG/ML (Solu-MEDROL) VIAL IV SCH (08:05)
[2018-10-09] MEDS: SENNA W/DOCUSATE (SENOKOT S) TABLET PO SCH ×2 (08:05→20:47)
[2018-10-09] MEDS: LACTULOSE SYRUP 10GM/15ML (ENULOSE) 30ML UDC PO SCH ×2 (08:05→20:47)
[2018-10-09] MEDS: HYDROCODONE/CHLOR 10MG/5 ML (TUSSIONEX SUSP) 5ML UDC PO SCH ×2 (08:11→20:47)
[2018-10-09] MEDS ORDERED: predniSONE 20 MG TAB PO NR (10:37)
--- NOTE | 2018-10-09 10:42 | Progress Note-Hospitalist ---
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 She was unable to go to her pulmonary function test appointment on Friday due to the illness because we were in the process of working up the recurrent upper respiratory illnesses and bronchitis and wheezing episodes she has had every 60 days 2 recently. At this current time patient is feeling much better with IV antibiotics empirically in addition to IV steroids and breathing treatments. She has never had a CT scan of her chest so we'll obtain that and we have started Singulair in addition to longer term usage of inhaled corticosteroids to minimize recurrent upper respiratory illnesses in the meantime. Checked meds and labs and we'll continue IV antibiotics and antitussives. Subjective/Events-last exam Patient feels better each day Wheezing and rales continue but improved air movement Abx maintained at Zosyn Steroids will be changed from IV to PO due to elevated sbc No pain is reported. No BM so SSE ordered Review of Systems Pulmonary: Cough Gastrointestinal: Constipation Focused Exam Lactate Level Objective Exam Vital Signs Vital Signs Date Time Temp Pulse Resp B/P (MAP) Pulse Ox O2 Delivery O2 Flow Rate FiO2 10/09/18 20:54 97.3 110 18 141/85 (103) 93 Room Air Capillary Refill : General Appearance: No Apparent Distress, WD/WN Respiratory: Chest Non Tender, No Accessory Muscle Use, No Respiratory Distress , Crackles, Wheezing Cardiovascular: Regular Rate, Rhythm, No Edema, No Gallop, No JVD, No Murmur, Normal Peripheral Pulses Neurologic/Psychiatric: Alert, Oriented x3, No Motor/Sensory Deficits, Normal Mood/Affect Results/Procedures Lab Laboratory Tests 10/09/18 03:55 Patient resulted labs reviewed. Assessment/Plan Assessment and Plan Assess & Plan/Chief Complaint RUL Pneumonia Wheezing with asthma-like condition pFT's pending Leukemia in remission HLP RICHARD Insomnia due to steroids Constipation Leukocytosis likely steroid effect Plan: IV abx Nebs O2 Change to PO steroids Recheck labs in am SSE Diagnosis/Problems Diagnosis/Problems (1) Pneumonia Status: Acute Qualifiers: Pneumonia type: due to unspecified organism Laterality: right Lung location: middle lobe of lung Qualified Codes: J18.1 - Lobar pneumonia, unspecified organism (2) Wheezing Status: Acute (3) Bronchitis Status: Acute (4) Leukemia in remission Status: Chronic Qualifiers: Leukemia type: unspecified Qualified Codes: C95.91 - Leukemia, unspecified , in remission (5) Hypothyroidism Status: Chronic Qualifiers: Hypothyroidism type: acquired Qualified Codes: E03.9 - Hypothyroidism, unspecified (6) RICHARD (nonalcoholic steatohepatitis) Status: Chronic (7) Elevated liver enzymes Status: Chronic (8) Hyperlipidemia Status: Chronic (9) Leukocytosis Status: Acute Qualifiers: Leukocytosis type: leukemoid reaction Qualified Codes: D72.823 - Leukemoid reaction (10) Constipation Status: Acute Qualifiers: Constipation type: slow transit constipation Qualified Codes: K59.01 - Slow transit constipation (11) Insomnia Status: Acute Qualifiers: Insomnia type: primary Qualified Codes: F51.01 - Primary insomnia Clinical Quality Measures DVT/VTE Risk/Contraindication: Risk Factor Score Per Nursin RFS Level Per Nursing on Admit: 1=Low/No VTE PPX ELIAZAR PERALTA MED STUDENT 10/09/18 1103: Subjective Subjective/Events-last exam Patient is feeling well and ambulating throughout the day She reports a coughing fit of 20 minutes early this morning She states that cough is still nonproductive Still has not had a bowel movement Complaining of sinus congestion Review of Systems HEENT: Sinus Congestion Pulmonary: Cough Objective Exam General Appearance: No Apparent Distress, WD/WN Respiratory: Chest Non Tender, No Accessory Muscle Use, No Respiratory Distress , Crackles Cardiovascular: Regular Rate, Rhythm, No Edema, No Gallop, No JVD, No Murmur, Normal Peripheral Pulses Neurologic/Psychiatric: Alert, Oriented x3, No Motor/Sensory Deficits, Normal Mood/Affect Skin: Normal Color, Warm/Dry Assessment/Plan Assessment and Plan Assess & Plan/Chief Complaint Assessment: 1) Wheezing and cough 2) constipation Plan: 1) Nebulizer treatments 2) Soap suds enema MALA PEREZ DO Oct 09, 2018 10:42 ELIAZAR PERALTA MED STUDENT Oct 09, 2018 11:03
[2018-10-09] MEDS: ENOXAPARIN 40 MG/0.4 ML (LOVENOX) SYR SC SCH (15:11)
[2018-10-09] MEDS: ZOLPIDEM 5 MG (AMBIEN) TAB PO SCH (20:47)
[2018-10-09] MEDS: MONTELUKAST 10 MG (SINGULAIR) TAB PO SCH (20:49)
[2018-10-10 05:21] LABS: BASOPHILS # (AUTO) 0.1 10^3/uL (0.0-0.1); BASOPHILS % (AUTO) 0 % (0-10); EOSINOPHILS % (AUTO) 0 % (0-10); HEMATOCRIT 37 % (35-52); HEMOGLOBIN 13.3 G/DL (11.5-16.0); LYMPHOCYTES # (AUTO) 9.3 X 10^3 (1.0-4.0); LYMPHOCYTES % (AUTO) 35 % (12-44); MEAN CORPUSCULAR HEMOGLOBIN 33 PG (25-34); MEAN CORPUSCULAR HGB CONC 36 G/DL (32-36); MEAN CORPUSCULAR VOLUME 94 FL (80-99); MEAN PLATELET VOLUME 9.9 FL (7.4-10.4); MONOCYTES # (AUTO) 2.4 X 10^3 (0.0-1.0); MONOCYTES % (AUTO) 9 % (0-12); NEUTROPHILS # (AUTO) 14.8 X 10^3 (1.8-7.8); NEUTROPHILS % (AUTO) 56 % (42-75); PLATELET COUNT 369 10^3/uL (130-400); RED BLOOD COUNT 3.98 10^6/uL (4.35-5.85); RED CELL DISTRIBUTION WIDTH 14.5 % (10.0-14.5); WHITE BLOOD COUNT 26.6 10^3/uL (4.3-11.0)
[2018-10-10 05:45] LABS: ALANINE AMINOTRANSFERASE 50 U/L (0-55); ALBUMIN 4.1 GM/DL (3.2-4.5); ALKALINE PHOSPHATASE 91 U/L (40-136); BILIRUBIN,TOTAL 0.4 MG/DL (0.1-1.0); BUN/CREATININE RATIO 21; CALCIUM 10.1 MG/DL (8.5-10.1); CARBON DIOXIDE 18 MMOL/L (21-32); CHLORIDE 97 MMOL/L (98-107); CREATININE SERUM 0.86 MG/DL (0.60-1.30); GFR ESTIMATED > 60; GLUCOSE 131 MG/DL (70-105); POTASSIUM 3.7 MMOL/L (3.6-5.0); SODIUM 134 MMOL/L (135-145); TOTAL PROTEIN 9.2 GM/DL (6.4-8.2)
[2018-10-10] MEDS: PANTOPRAZOLE 40 MG (PROTONIX) TAB PO SCH (06:04)
[2018-10-10] MEDS: LEVOTHYROXINE 100 MCG (LEVOTHROID) TAB PO SCH (06:04)
[2018-10-10] MEDS: PIPERACILLIN SODIUM/TAZOBACTAM 4.5 GM in NS (IVPB) 100 ML IV SCH (06:04)
[2018-10-10] MEDS: LEVOTHYROXINE 75 MCG (LEVOTHROID) TABLET PO SCH (06:04)
[2018-10-10] MEDS ORDERED: predniSONE 20 MG TAB PO SCH (07:00)
[2018-10-10] MEDS: RT-BUDESONIDE NEBS 0.5 MG/2ML (PULMICORT) AMP INH SCH (07:04)
[2018-10-10] MEDS: RT-ALBUTEROL SULF 2.5 MG/3 ML PRE-MIX VIAL INH SCH (07:04)
[2018-10-10 07:48] VITALS: BP 154/84
[2018-10-10] MEDS: SENNA W/DOCUSATE (SENOKOT S) TABLET PO SCH (08:12)
[2018-10-10] MEDS: LACTULOSE SYRUP 10GM/15ML (ENULOSE) 30ML UDC PO SCH (08:12)
[2018-10-10] MEDS: HYDROCODONE/CHLOR 10MG/5 ML (TUSSIONEX SUSP) 5ML UDC PO SCH (08:13)
[2018-10-10] MEDS: BENZONATATE 100 MG (TESSALON) CAPSULE PO SCH (08:13)
[2018-10-10] MEDS ORDERED: HYDR473S34 PO (11:03)
[2018-10-10] MEDS ORDERED: MONT10TA24 PO (11:03)
[2018-10-10] MEDS ORDERED: Zolpidem Tartrate PO (11:03)
[2018-10-10] MEDS ORDERED: CEFD300C3 PO (11:03)
[2018-10-10] MEDS ORDERED: PRED10TA22 PO (11:03)
--- NOTE | 2018-10-10 11:08 | Discharge Summary-Hospitalist ---
Diagnosis/Chief Complaint Date of Admission Oct 08, 2018 at 09:00 Date of Discharge Discharge Date: Oct 10, 2018 Admission Diagnosis Assessment: Acute on chronic bacterial bronchitis with wheezing Presumed asthma awaiting pulmonary function test obtaining CT scan chest History of leukemia in remission managed by Praneeth Richard Severe hyperlipidemia unable to tolerate high-dose statin due to elevated liver enzymes Periodic diarrhea chronic and type Hypothyroidism GERD Plan: Continue IV steroids Continue IV antibiotics empirically Check labs in a.m. Check CT chest Bowel regimen Discontinue telemetry Ambulate after Hep-Lock IV fluid Discharge Diagnosis (1) Pneumonia Status: Acute (2) Wheezing Status: Resolved (3) Bronchitis Status: Acute (4) Leukemia in remission Status: Chronic (5) Hypothyroidism Status: Chronic (6) RICHARD (nonalcoholic steatohepatitis) Status: Chronic (7) Elevated liver enzymes Status: Chronic (8) Hyperlipidemia Status: Chronic (9) Leukocytosis Status: Acute (10) Constipation Status: Resolved (11) Insomnia Status: Acute Discharge Summary Discharge Physical Exam Allergies: Coded Allergies: No Known Drug Allergies (Unverified , 10/08/15) Vitals & I&Os Vital Signs Date Time Temp Pulse Resp B/P (MAP) Pulse Ox O2 Delivery O2 Flow Rate FiO2 10/10/18 07:48 96.8 88 14 154/84 (107) 92 Room Air General Appearance: No Apparent Distress, WD/WN Respiratory: Chest Non Tender, Lungs Clear, Normal Breath Sounds, No Accessory Muscle Use, No Respiratory Distress Cardiovascular: Regular Rate, Rhythm, No Edema, No Gallop, No JVD, No Murmur, Normal Peripheral Pulses Neurologic/Psychiatric: Alert, Oriented x3, No Motor/Sensory Deficits, Normal Mood/Affect Hospital Course Hospital course: Patient had an uneventful but lengthy hospital worse after direct admitted for wheezing and presumed bacterial bronchitis. She was placed on IV steroids nebulizer treatments oxygen and antibiotics. CT of the chest obtained to rule out PE due to recurrent upper respiratory illnesses revealing right middle lobe pneumonia that was not identified on chest x-ray. Patient was maintained on pneumonia protocol and tapered down IV steroids but white blood cell count increased to 30,000 requiring additional 2 days of rechecking to be sure that was on the downward trend due to history of leukemia. Severe constipation was resolved with aggressive medication. All home medication was restarted at time of discharge along with the addition of Singulair and Advair and to complete oral antibiotic and oral steroids. I will see her in clinic this week to reschedule pulmonary function test but will maintain Singulair and Advair in the meantime. Labs (last 24 hrs) Laboratory Tests 10/10/18 05:10: White Blood Count 26.6H, Red Blood Count 3.98L, Hemoglobin 13.3, Hematocrit 37, Mean Corpuscular Volume 94, Mean Corpuscular Hemoglobin 33, Mean Corpuscular Hemoglobin Concent 36, Red Cell Distribution Width 14.5, Platelet Count 369, Mean Platelet Volume 9.9, Neutrophils (%) (Auto) 56, Lymphocytes (%) (Auto) 35, Monocytes (%) (Auto) 9, Eosinophils (%) (Auto) 0, Basophils (%) (Auto) 0, Neutrophils # (Auto) 14.8H, Lymphocytes # (Auto) 9.3H, Monocytes # (Auto) 2.4H, Eosinophils # (Auto) 0.0, Basophils # (Auto) 0.1, Sodium Level 134L, Potassium Level 3.7, Chloride Level 97L, Carbon Dioxide Level 18L, Anion Gap 19H, Blood Urea Nitrogen 18, Creatinine 0.86, Estimat Glomerular Filtration Rate > 60, BUN/ Creatinine Ratio 21, Glucose Level 131H, Calcium Level 10.1, Corrected Calcium 10.0, Total Bilirubin 0.4, Aspartate Amino Transf (AST/SGOT) 26, Alanine Aminotransferase (ALT/SGPT) 50, Alkaline Phosphatase 91, Total Protein 9.2H, Albumin 4.1 Microbiology 10/06/18 Blood Culture - Preliminary, Resulted No growth 10/06/18 Influenza Types A,B Antigen (BERNARDINO) - Final, Complete Patient resulted labs reviewed. Pending Labs Laboratory Tests 10/10/18 05:10: White Blood Count 26.6, Red Blood Count 3.98, Hemoglobin 13.3, Hematocrit 37, Mean Corpuscular Volume 94, Mean Corpuscular Hemoglobin 33, Mean Corpuscular Hemoglobin Concent 36, Red Cell Distribution Width 14.5, Platelet Count 369, Mean Platelet Volume 9.9, Neutrophils (%) (Auto) 56, Lymphocytes (%) (Auto) 35, Monocytes (%) (Auto) 9, Eosinophils (%) (Auto) 0, Basophils (%) (Auto) 0, Neutrophils # (Auto) 14.8, Lymphocytes # (Auto) 9.3, Monocytes # (Auto) 2.4, Eosinophils # (Auto) 0.0, Basophils # (Auto) 0.1, Sodium Level 134, Potassium Level 3.7, Chloride Level 97, Carbon Dioxide Level 18, Anion Gap 19, Blood Urea Nitrogen 18, Creatinine 0.86, Estimat Glomerular Filtration Rate > 60, BUN/ Creatinine Ratio 21, Glucose Level 131, Calcium Level 10.1, Corrected Calcium 10.0, Total Bilirubin 0.4, Aspartate Amino Transf (AST/SGOT) 26, Alanine Aminotransferase (ALT/SGPT) 50, Alkaline Phosphatase 91, Total Protein 9.2, Albumin 4.1 Discussion & Recommendations Discharge Planning: <30 minutes discharge planning Discharge Home Medications: Active Scripts Active Prednisone 10 Mg Tab.ds.pk 20 Mg PO DAILY Take 6 tabs(60mg)daily,decrease by 1 tab(10MG)daily. Cefdinir 300 Mg Capsule 300 Mg PO BID Montelukast Sodium 10 Mg Tablet 10 Mg PO HS Hydrocodone-Chlorphen ER Susp (Hydrocodone/Chlorphen P-Stirex) 473 Ml Yvrose.er.12h 5 Ml PO Q12HR [Zolpidem Tartrate] 5 MG Tab 5 Mg PO HS Reported Albuterol Sulfate 1.25 Mg/3 Ml Vial.neb 1.25 Mg NEB TID PRN Advair 100-50 Diskus (Fluticasone/Salmeterol) 1 Each Blst.w.dev 1 Puff INH BID PRN Formula Tablet ( Vits #93/Iron Fum/FA) 1 Each Tablet 1 Tab PO DAILY [place] [address]-3 Acid Ethyl Esters 1 Gm Capsule 2 Gm PO BID Valacyclovir (Valacyclovir HCl) 1,000 Mg Tablet 1,000 Mg PO DAILY PRN Atorvastatin Calcium 10 Mg Tablet 10 Mg PO DAILY Lansoprazole 30 Mg Capsule.dr 30 Mg PO DAILY Levothyroxine Sodium 175 Mcg Tablet 175 Mcg PO DAILY Instructions to patient/family Please see electronic discharge instructions given to patient. Clinical Quality Measures DVT/VTE Risk/Contraindication: Risk Factor Score Per Nursin RFS Level Per Nursing on Admit: 1=Low/No VTE PPX Problem Qualifiers (1) Pneumonia: Pneumonia type: due to unspecified organism Laterality: right Lung location : middle lobe of lung Qualified Codes: J18.1 - Lobar pneumonia, unspecified organism (2) Leukemia in remission: Leukemia type: unspecified Qualified Codes: C95.91 - Leukemia, unspecified, in remission (3) Hypothyroidism: Hypothyroidism type: acquired Qualified Codes: E03.9 - Hypothyroidism, unspecified (4) Leukocytosis: Leukocytosis type: leukemoid reaction Qualified Codes: D72.823 - Leukemoid reaction (5) Constipation: Constipation type: slow transit constipation Qualified Codes: K59.01 - Slow transit constipation (6) Insomnia: Insomnia type: primary Qualified Codes: F51.01 - Primary insomnia MALA PEREZ DO Oct 10, 2018 11:08
[2018-10-10 12:30] VITALS: BP 154/84
--- OUTSIDE RECORDS SUMMARY | 2018-10-13 09:13 | XMS REPORT | Clinical Summary ---
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 CHRONIC MONOCYTIC LEUKEMIA IN RELAPSE 206.12 Active Taina Germain Chronic monocytic leukemia in relapse HYPERCHOLESTEROLEMIA 272.0 Active Taina Germain Pure hypercholesterolemia HYPOTHYROIDISM, PRIMARY 244.9 Active Taina Germain Unspecified hypothyroidism VAGINITIS, ATROPHIC 627.3 Active Taina Germain Postmenopausal atrophic vaginitis HERPES LABIALIS 054.9 Correction Taina Germain Herpes simplex without mention of complication HERPES GENITALIS 054.10 Resolved Taina Germain Genital herpes, unspecified DRY EYE SYNDROME 375.15 Resolved Taina Germain Tear film insufficiency, unspecified DIARRHEA, RECURRENT 787.91 Active Taina Germain Diarrhea GERD 530.81 Active Taina Germain Esophageal reflux NAUSEA 787.02 Resolved Taina Germain Nausea alone DIZZINESS 780.4 Resolved Taina Germain Dizziness and giddiness SINUSITIS, SPHENOIDAL, ACUTE 461.3 Resolved Taina Germain Acute sphenoidal sinusitis HYPERTRIGLYCERIDEMIA 272.1 Active Taina Germain Pure hyperglyceridemia LIVER FUNCTION TESTS, ABNORMAL 794.8 Active Taina Germain Nonspecific abnormal results of function study of liver 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 Germain Complications of bone marrow transplant CANDIDIASIS, ESOPHAGEAL 112.84 Resolved Taina Germain Candidal esophagitis HERPES ESOPHAGITIS 530.19 Resolved Taina Germain Other esophagitis WELL WOMAN V70.0 Resolved Taina Germain Routine general medical examination at a health care facility HYPERTRIGLYCERIDEMIA 272.1 Active Taina Germain Pure hyperglyceridemia ABDOMINAL PAIN, GENERALIZED 789.07 Active Taina Germain Abdominal pain, generalized Medication List Medication Instructions Start Date Stop Date Generic Name ND Status Provider Patient Instruction BENTYL 10 MG CAPS 1 PO 15 minutes before meals and QHS DICYCLOMINE HCL 08424410648 Active Taina Germain URSODIOL 300 MG CAPS 1 po BID URSODIOL 56689849634 Active Taina Germain SANDOSTATIN LAR DEPOT 10 MG KIT 1 injection monthly OCTREOTIDE ACETATE 56453302666 No Longer Active Taina Germain XANAX 0.25 MG TABS 1 PO Q6hrs prn ALPRAZOLAM 25621045419 Active Taina Germain VALTREX 1 GM TABS 1 PO daily VALACYCLOVIR HCL 86565361659 Active Kateryna Villalpando CELEXA 20 MG TABS 1 PO daily CITALOPRAM HYDROBROMIDE 46761827143 No Longer Active Taina Germain GLEEVEC 400 MG TABS 1/2 tab PO QD IMATINIB MESYLATE 11697496558 Active Katerynacarlin Villalpando VALACYCLOVIR HCL 1 GM TABS 1 PO daily VALACYCLOVIR HCL 10235173137 No Longer Active Taina Valentine Germain XANAX 0.25 MG TABS 1 PO Q6hrs prn ALPRAZOLAM 62642031234 No Longer Active Taina Valentine Germain ANTIVERT 25 MG TABS 1 PO Qhrs prn MECLIZINE HCL 48837587052 No Longer Active Taina Valentine Germain PREDNISONE 10 MG TAB 1/2 po QOD PREDNISONE 33719433458 No Longer Active Taina Valentine Germain BACTRIM DS 800-160 MG TAB 1 PO on MWF TRIMETHOPRIM- SULFAMETHOXAZOLE 97638277417 No Longer Active Taina Valentine Germain LIPITOR 40 MG TAB 1 po daily ATORVASTATIN CALCIUM 92643755832 Active Katerynacarlin Villalpando PREMARIN 0.625 MG/GM CREA 1 gm intravaginally HS ESTROGENS, CONJUGATED VAGINAL 20752293479 No Longer Active Taina Valentine Germain ESTRACE 0.1 MG/GM CREA Apply 1/2 gram vaginally twice a week ESTRADIOL 55874466905 Active Katerynacarlin Villalpando LUVENA VAGINAL MOISTURIZER GEL use in vagina every third day VAGINAL MOISTURIZER 16816794628 Active Taina Valentine Germain PREDNISONE 10 MG TAB 1/2 PO daily PREDNISONE 37103461616 No Longer Active Taina Valentine Germain XANAX 0.25 MG TABS 1 PO Q6hrs prn ALPRAZOLAM 07234192248 No Longer Active Taina Valentine Germain CELEXA 20 MG TABS 1 PO daily CITALOPRAM HYDROBROMIDE 25335401350 No Longer Active Taina Valentine Germain CLOBETASOL PROPIONATE E 0.05 % CREA Apply to infected areas BID CLOBETASOL PROP EMOLLIENT BASE 40495483098 No Longer Active Taina Germain PREDNISONE 10 MG TAB 4 PO daily until further notice PREDNISONE 68108369861 No Longer Active Taina Germain RESTASIS EMUL 1 drop each eye BID CYCLOSPORINE EMUL 67147207489 No Longer Active Taina Germain NYSTATIN 845343 U/ML SUSP 5cc PO QID for 7 days NYSTATIN 95118421585 No Longer Active Taina Germain ZITHROMAX Z-STEPHON 250 MG TABS as directed AZITHROMYCIN 69795560213 Active Taina YOUNG'José Miguel NASAL SPRAY (DEXAMETHASONE, GENTAMICIN, SALINE) 2 puffs each nostril TID for [address] HOWELL NASAL SPRAY ( DEXAMETHASONE, GENTAMICIN, SALINE) No Longer Active Taina Germain ALBUTEROL SULFATE 0.083 % NEBU SOLN 1 treatment TID prn ALBUTEROL SULFATE 08172977918 Active Taina Germain VITAMINS PLUS TABS 1 PO daily VIT-FE FUMARATE-FA TABS 48615363823 Active Taina Germain SYNTHROID 200 MCG TABS 1 PO daily LEVOTHYROXINE SODIUM 21306080352 Active Kateryna Villalpando LANSOPRAZOLE 30 MG CPDR 1 PO daily LANSOPRAZOLE 73201004274 Active Kateryna Villalpando LOMOTIL 2.5-0.025 MG TABS 1 PO TID prn DIPHENOXYLATE-ATROPINE 95141076209 Active Kateryna Villalpando ZOFRAN ODT 8 MG TBDP 1 PO Q6hrs prn nausea ONDANSETRON 13725304232 Active Kateryna Villalpando Immunizations Vaccine Administration Date Value Standard Description Influenza vaccine given done influenza virus vaccine, unspecified formulation pneumococcal immunization administered done pneumococcal polysaccharide vaccine, 23 valent Influenza vaccine given 2012 done influenza virus vaccine, unspecified formulation Vital Signs Date Name Value Unit Range Description blood pressure, diastolic - 8462-4 96 mm[Hg] BP matute blood pressure, systolic - 8480-6 142 mm[Hg] BP sys pulse rate E&M - 8867-4 74 /min Heart rate respiratory rate E&M - 9279-1 14 /min Resp rate weight E&M - 3141-9 178 [lb_av] Weight Measured blood pressure, diastolic - 8462-4 64 mm[Hg] BP matute blood pressure, systolic - 8480-6 138 mm[Hg] BP sys pulse rate E&M - 8867-4 76 /min Heart rate respiratory rate E&M - 9279-1 14 /min Resp rate weight E&M - 3141-9 171 [lb_av] Weight Measured blood pressure, diastolic - 8462-4 84 mm[Hg] BP matute blood pressure, systolic - 8480-6 120 mm[Hg] BP sys pulse rate E&M - 8867-4 80 /min Heart rate respiratory rate E&M - 9279-1 14 /min Resp rate weight E&M - 3141-9 166 [lb_av] Weight Measured blood pressure, diastolic - 8462-4 70 mm[Hg] BP matute blood pressure, systolic - 8480-6 120 mm[Hg] BP sys pulse rate E&M - 8867-4 64 /min Heart rate respiratory rate E&M - 9279-1 14 /min Resp rate blood pressure, diastolic - 8462-4 70 mm[Hg] BP matute blood pressure, systolic - 8480-6 118 mm[Hg] BP sys respiratory rate E&M - 9279-1 14 /min Resp rate blood pressure, diastolic - 8462-4 78 mm[Hg] BP matute blood pressure, systolic - 8480-6 118 mm[Hg] BP sys pulse rate E&M - 8867-4 60 /min Heart rate respiratory rate E&M - 9279-1 14 /min Resp rate temperature E&M 98.6 [degF] Body temperature weight E&M - 3141-9 162 [lb_av] Weight Measured blood pressure, diastolic - 8462-4 60 mm[Hg] BP matute blood pressure, systolic - 8480-6 106 mm[Hg] BP sys pulse rate E&M - 8867-4 80 /min Heart rate respiratory rate E&M - 9279-1 14 /min Resp rate weight E&M - 3141-9 165 [lb_av] Weight Measured Diagnostic Results Date Name Value Unit Range Description Clinical Lists Update: CBC,BMP,LFT,ESR,UA - Chemistry glucose, plasma fasting 106 mg/dL albumin, serum 4.5 g/dL anion gap, serum 15 sodium, serum 140 mmol/L bilirubin, serum, total 0.4 mg/dL alanine aminotransferase (SGPT), serum 83 U/L aspartate aminotransferase (SGOT), serum 68 U/L protein, total, serum 8.0 g/dL potassium, serum 3.5 mmol/L creatinine, serum 1.11 mg/dL carbon dioxide, venous blood 25 mmol/L chloride, serum 104 mmol/L calcium, serum 10.1 mg/dL urea nitrogen, blood 16 mg/dL alkaline phosphatase, serum 110 U/L Estimated Glomerular Filtration Rate (calc) 52 mL/min/1.73m2 Clinical Lists Update: CBC,BMP,LFT,ESR,UA - Hematology leukocyte count, blood 8.91 10*3/mm3 mean corpuscular volume, RBC 99.7 fL erythrocyte (RBC) count 3.72 10*6/mm3 erythrocyte sedimentation rate 4 mm/h hematocrit, blood 37.1 % hemoglobin, blood 12.7 g/dL platelet count 420 10*3/mm3 Clinical Lists Update: CBC,BMP,LFT,ESR,UA - Urinalysis blood in urine (hemoglobin) by dipstick neg protein, urine, semiquantitative (dipstick) 1+ epithelial cells, urine 0-5 /[LPF] bacteria, urine microscopy neg RBC urine by microscopy neg WBC urine on microscopy neg {Cells}/[HPF] appearance, urine Clear Yellow urobilinogen, urine, semiquantitative (dipstick) 0.2 specific gravity, urine 1.020 pH, urine, semiquantitative 5.5 glucose, urine, semiquantitative neg bilirubin, urine neg ketones, urine, by test strip trace nitrite, urine, semiquantitative neg mucus on urinalysis 1+ Clinical Lists Update: CBC,CMP - Chemistry Estimated Glomerular Filtration Rate (calc) 66 mL/min/1.73m2 albumin, serum 4.2 g/dL anion gap, serum 13 sodium, serum 142 mmol/L bilirubin, serum, total 0.2 mg/dL alanine aminotransferase (SGPT), serum 45 U/L aspartate aminotransferase (SGOT), serum 53 U/L protein, total, serum 7.1 g/dL potassium, serum 4.1 mmol/L bilirubin, serum, direct 0.1 mg/dL creatinine, serum 0.90 mg/dL carbon dioxide, venous blood 27 mmol/L chloride, serum 106 mmol/L calcium, serum 9.7 mg/dL urea nitrogen, blood 13 mg/dL alkaline phosphatase, serum 93 U/L albumin, serum 4.2 g/dL Estimated Glomerular Filtration Rate (calc) 57 mL/min/1.73m2 glucose, plasma fasting 104 mg/dL anion gap, serum 14 sodium, serum 138 mmol/L bilirubin, serum, total 0.4 mg/dL alanine aminotransferase (SGPT), serum 48 U/L aspartate aminotransferase (SGOT), serum 56 U/L protein, total, serum 7.5 g/dL potassium, serum 4.3 mmol/L bilirubin, serum, direct 0.1 mg/dL creatinine, serum 1.02 mg/dL carbon dioxide, venous blood 26 mmol/L chloride, serum 102 mmol/L calcium, serum 10.1 mg/dL urea nitrogen, blood 14 mg/dL alkaline phosphatase, serum 98 U/L albumin, serum 4.4 g/dL Estimated Glomerular Filtration Rate (calc) 58 mL/min/1.73m2 glucose, plasma fasting 98 mg/dL anion gap, serum 17 sodium, serum 139 mmol/L bilirubin, serum, total 0.4 mg/dL alanine aminotransferase (SGPT), serum 48 U/L aspartate aminotransferase (SGOT), serum 56 U/L protein, total, serum 7.5 g/dL potassium, serum 4.5 mmol/L creatinine, serum 1.01 mg/dL carbon dioxide, venous blood 25 mmol/L chloride, serum 102 mmol/L calcium, serum 9.8 mg/dL urea nitrogen, blood 17 mg/dL alkaline phosphatase, serum 104 U/L glucose, plasma fasting 101 mg/dL Clinical Lists Update: CBC,CMP - Hematology red blood cell distribution width 16.9 % mean corpuscular volume, RBC 99.4 fL leukocyte count, blood 6.33 10*3/mm3 erythrocyte (RBC) count 3.43 10*6/mm3 platelet count 412 10*3/mm3 hemoglobin, blood 11.0 g/dL hematocrit, blood 34.1 % red blood cell distribution width 15.2 % mean corpuscular volume, RBC 98.2 fL leukocyte count, blood 6.87 10*3/mm3 erythrocyte (RBC) count 3.80 10*6/mm3 platelet count 437 10*3/mm3 hemoglobin, blood 12.4 g/dL hematocrit, blood 37.3 % red blood cell distribution width 14.9 % mean corpuscular volume, RBC 102.5 fL leukocyte count, blood 5.91 10*3/mm3 erythrocyte (RBC) count 3.66 10*6/mm3 platelet count 461 10*3/mm3 hemoglobin, blood 12.2 g/dL hematocrit, blood 37.5 % Clinical Lists Update: CBC,CMP DR LEDEZ[facility] - Chemistry Estimated Glomerular Filtration Rate (calc) 57 mL/min/1.73m2 glucose, plasma fasting 102 mg/dL anion gap, serum 16 sodium, serum 136 mmol/L bilirubin, serum, total 0.2 mg/dL alanine aminotransferase (SGPT), serum 70 U/L aspartate aminotransferase (SGOT), serum 61 U/L protein, total, serum 8.2 g/dL potassium, serum 4.4 mmol/L bilirubin, serum, direct 0.2 mg/dL creatinine, serum 1.02 mg/dL carbon dioxide, venous blood 25 mmol/L chloride, serum 99 mmol/L calcium, serum 10.1 mg/dL urea nitrogen, blood 19 mg/dL alkaline phosphatase, serum 111 U/L albumin, serum 4.4 g/dL Clinical Lists Update: CBC,CMP DR LEDEZMA LABS - Hematology red blood cell distribution width 14.0 % mean corpuscular volume, RBC 102.3 fL leukocyte count, blood 7.60 10*3/mm3 hematocrit, blood 36.1 % platelet count 425 10*3/mm3 hemoglobin, blood 12.1 g/dL erythrocyte (RBC) count 3.53 10*6/mm3 Clinical Lists Update: CBC,CMP,Bili Direct - Chemistry Estimated Glomerular Filtration Rate (calc) 59 mL/min/1.73m2 glucose, plasma fasting 94 mg/dL anion gap, serum 16 sodium, serum 140 mmol/L bilirubin, serum, total 0.3 mg/dL alanine aminotransferase (SGPT), serum 30 U/L aspartate aminotransferase (SGOT), serum 38 U/L protein, total, serum 7.0 g/dL potassium, serum 4.4 mmol/L creatinine, serum 0.99 mg/dL carbon dioxide, venous blood 23 mmol/L chloride, serum 105 mmol/L calcium, serum 94 mg/dL urea nitrogen, blood 12 mg/dL alkaline phosphatase, serum 100 U/L albumin, serum 4.0 g/dL Estimated Glomerular Filtration Rate (calc) 61 mL/min/1.73m2 glucose, plasma fasting 115 mg/dL anion gap, serum 14 sodium, serum 139 mmol/L bilirubin, serum, total 0.4 mg/dL alanine aminotransferase (SGPT), serum 34 U/L aspartate aminotransferase (SGOT), serum 37 U/L protein, total, serum 7.2 g/dL potassium, serum 4.2 mmol/L bilirubin, serum, direct 0.1 mg/dL creatinine, serum 0.96 mg/dL carbon dioxide, venous blood 26 mmol/L chloride, serum 103 mmol/L calcium, serum 9.7 mg/dL urea nitrogen, blood 15 mg/dL alkaline phosphatase, serum 106 U/L albumin, serum 4.2 g/dL Clinical Lists Update: CBC,CMP,Bili Direct - Hematology red blood cell distribution width 16.1 % mean corpuscular volume, RBC 97.4 fL leukocyte count, blood 6.66 10*3/mm3 erythrocyte (RBC) count 3.48 10*6/mm3 platelet count 483 10*3/mm3 hemoglobin, blood 10.8 g/dL hematocrit, blood 30.6 % red blood cell distribution width 17.6 % mean corpuscular volume, RBC 98.1 fL leukocyte count, blood 10.93 10*3/mm3 erythrocyte (RBC) count 3.12 10*6/mm3 platelet count 504 10*3/mm3 hemoglobin, blood 9.6 g/dL hematocrit, blood 33.9 % Clinical Lists Update: CBC,CMP,FERRITIN,CHOL,TRIG,TSH,FREE T4 - Chemistry ferritin, serum 108.90 ng/mL aspartate aminotransferase (SGOT), serum 79 U/L thyroid stimulating hormone, serum 2.20 u[iU]/mL potassium, serum 4.6 mmol/L protein, total, serum 7.3 g/dL albumin, serum 4.3 g/dL alkaline phosphatase, serum 99 U/L urea nitrogen, blood 15 mg/dL calcium, serum 10.1 mg/dL chloride, serum 103 mmol/L cholesterol, serum 346 mg/dL carbon dioxide, venous blood 22 mmol/L creatinine, serum 1.02 mg/dL Estimated Glomerular Filtration Rate (calc) 57 mL/min/1.73m2 glucose, plasma fasting 117 mg/dL anion gap, serum 19 sodium, serum 139 mmol/L triglyceride, serum, fasting 889 mg/dL bilirubin, serum, total 0.5 mg/dL alanine aminotransferase (SGPT), serum 74 U/L thyroxine, serum, free 1.17 ng/dL Clinical Lists Update: CBC,CMP,FERRITIN,CHOL,TRIG,TSH,FREE T4 - Hematology hematocrit, blood 40.9 % hemoglobin, blood 13.8 g/dL platelet count 407 10*3/mm3 erythrocyte (RBC) count 4.04 10*6/mm3 mean corpuscular volume, RBC 101.2 fL leukocyte count, blood 7.57 10*3/mm3 Clinical Lists Update: CBC,CMP,FERRITIN,FLP,TSH,FREE T4,HGA1C - Chemistry aspartate aminotransferase (SGOT), serum 35 U/L alkaline phosphatase, serum 96 U/L urea nitrogen, blood 13 mg/dL calcium, serum 9.9 mg/dL chloride, serum 106 mmol/L cholesterol, serum 192 mg/dL carbon dioxide, venous blood 21 mmol/L albumin, serum 4.3 g/dL Estimated Glomerular Filtration Rate (calc) 61 mL/min/1.73m2 glucose, plasma fasting 117 mg/dL very low density lipoproteins 85 mg/dL cholesterol/HDL ratio, serum, percent 5.2 anion gap, serum 17 sodium, serum 140 mmol/L triglyceride, serum, fasting 425 mg/dL bilirubin, serum, total 0.4 mg/dL alanine aminotransferase (SGPT), serum 36 U/L protein, total, serum 7.3 g/dL potassium, serum 4.2 mmol/L LDL cholesterol, serum 70 mg/dL thyroid stimulating hormone, serum 0.20 u[iU]/mL hemoglobin A1C, blood, as % of total hemoglobin 5.60 % HDL cholesterol, serum 37 mg/dL thyroxine, serum, free 1.37 ng/dL ferritin, serum 31.87 ng/mL creatinine, serum 0.97 mg/dL Clinical Lists Update: CBC,CMP,FERRITIN,FLP,TSH,FREE T4,HGA1C - Hematology hematocrit, blood 38.4 % red blood cell distribution width 14.7 % mean corpuscular volume, RBC 99.2 fL leukocyte count, blood 6.33 10*3/mm3 erythrocyte (RBC) count 3.87 10*6/mm3 platelet count 446 10*3/mm3 hemoglobin, blood 12.6 g/dL Office Visit: Dr Germain's Check Up: Established Patient Visit - Chemistry Estimated Glomerular Filtration Rate (calc) 49 mL/min/1.73m2 glucose, plasma fasting 111 mg/dL albumin, serum 4.2 g/dL alkaline phosphatase, serum 91 U/L urea nitrogen, blood 14 mg/dL calcium, serum 10.2 mg/dL chloride, serum 102 mmol/L cholesterol, serum 220 mg/dL anion gap, serum 14 sodium, serum 140 mmol/L triglyceride, serum, fasting 829 mg/dL bilirubin, serum, total 0.5 mg/dL alanine aminotransferase (SGPT), serum 64 U/L aspartate aminotransferase (SGOT), serum 63 U/L protein, total, serum 7.1 g/dL potassium, serum 4.5 mmol/L thyroid stimulating hormone, serum 0.16 u[iU]/mL ferritin, serum 36.33 ng/mL bilirubin, serum, direct 0.2 mg/dL creatinine, serum 1.16 mg/dL carbon dioxide, venous blood 29 mmol/L Office Visit: Dr Germain's Check Up: Established Patient Visit - Hematology platelet count 405 10*3/mm3 erythrocyte (RBC) count 3.43 10*6/mm3 leukocyte count, blood 5.52 10*3/mm3 mean corpuscular volume, RBC 100.3 fL red blood cell distribution width 17.2 % hemoglobin, blood 11.4 g/dL hematocrit, blood 34.4 % Encounters Code Encounter Date Provider Facility CPT-23033 Ofc Vst, Est Level IV 20:36:26 CDT Taina Germain DO, FACP CPT-70124 Ofc Vst, Est Level IV 17:04:55 CDT Taina Germain DO, FACP CPT-66123 Ofc Vst, Est Level IV 16:22:19 ASSOCIATE PROFESSOR OF GEOLOGY Taina Germain DO, FACP CPT-76845 Ofc Vst, Est Level IV 16:57:55 ASSOCIATE PROFESSOR OF GEOLOGY Taina Germain DO, FACP CPT-45729 Ofc Vst, Est Level III 20:30:19 CDT Tainarussell Valdez Germain, DO, FACP CPT-86462 Ofc Vst, Est Level III 19:28:47 CDT Taina Valentine Valdez Germain, DO, FACP CPT-51280 Ofc Vst, Est Level IV 19:13:50 CDT Taina Valentine Valdez Germain, DO, FACP CPT-35677 Ofc Vst, Est Level IV 12:14:27 ASSOCIATE PROFESSOR OF GEOLOGY Tainarussell Valdez Germain, DO, FACP CPT-42963 Ofc Vst, Est Level III 21:19:07 CDT Taina Valentine Valdez Germain, DO, FACP CPT-07890 Ofc Vst, Est Level IV 13:12:49 CDT Taina Valentine Valdez Germain, DO, FACP CPT-67821 Ofc Vst, Est Level III 14:41:26 CDT Taina Valentine Valdez Germain, DO, FACP CPT-11856 Ofc Vst, Est Level IV 15:17:01 CDT Tainarussell Valdez Germain, DO, FACP CPT-80760 Ofc Vst, Est Level III 16:02:16 CDT Taina Valdez Germain, DO, FACP CPT-70556 Ofc Vst, Est Level V 21:51:11 CDT Taina Valentine Vladez Germain, DO, FACP CPT-91768 Ofc Vst, Est Level IV 13:07:29 CDT Taina Valentine Her S Germain, DO, FACP CPT-47371 Ofc Vst, Est Level III 13:03:11 CDT Tainarussell Her S Germain, DO, FACP CPT-89988 Ofc Vst, Est Level III 15:13:37 ASSOCIATE PROFESSOR OF GEOLOGY Taina Valentine Valdez Germain, DO, FACP Procedures Code Procedure Name Date Entry Date Standard Description CPT-87149 Preventive, Est, (40-64) 20:40:07 CDT
--- OUTSIDE RECORDS SUMMARY | 2018-10-13 09:13 | XMS REPORT | Clinical Summary ---
Author Author User, [employer] Taina Germain DO, FACP Address Unknown Phone Allergies, Adverse Reactions, Alerts Allergy Name Reaction Description Start Date Severity Status Provider No Known Allergies aPul Santos Conditions or Problems Problem Name Problem [...] Taina Germain Acute sphenoidal sinusitis HYPERTRIGLYCERIDEMIA 272.1 Resolved Taina Germain Pure hyperglyceridemia LIVER FUNCTION TESTS, [...] Germain Pure hyperglyceridemia ABDOMINAL PAIN, GENERALIZED 789.07 Resolved Taina Germain Abdominal pain, generalized HEALTH SCREENING V70.0 Active Taina Germain Routine general medical examination at a health care facility Medication List Medication Instructions Start Date Stop Date Generic Name NDC Status Provider Patient Instruction URSODIOL 300 MG CAPS 1 po BID URSODIOL 39416708119 No Longer Active Taina Germain BENTYL 10 MG CAPS 1 PO 15 minutes before meals and QHS DICYCLOMINE HCL 69451960691 No Longer Active Taina Germain SANDOSTATIN LAR DEPOT 10 MG KIT 1 injection monthly OCTREOTIDE ACETATE 92122036623 No Longer Active Taina Germain XANAX 0.25 MG TABS 1 PO Q6hrs prn ALPRAZOLAM 50550085395 Active Taina Germain VALTREX 1 GM TABS 1 PO daily VALACYCLOVIR HCL 76777873949 Active Kateryna Grahamtis CELEXA 20 MG TABS 1 PO daily CITALOPRAM HYDROBROMIDE 82832676436 No Longer Active Taina Valentine Germain GLEEVEC 400 MG TABS 1/2 tab PO QD IMATINIB MESYLATE 14031227263 Active Kateryna Villalpando VALACYCLOVIR HCL 1 GM TABS 1 PO daily VALACYCLOVIR HCL 27890128595 No Longer Active Taina Valentine Germain XANAX 0.25 MG TABS 1 PO Q6hrs prn ALPRAZOLAM 15930681234 No Longer Active Taina Valentine Germain ANTIVERT 25 MG TABS 1 PO Qhrs prn MECLIZINE HCL 11531721011 No Longer Active Taina Valentine Germain PREDNISONE 10 MG TAB 1/2 po QOD PREDNISONE 26144642682 No Longer Active Taina Valentine Germain BACTRIM DS 800-160 MG TAB 1 PO on MWF TRIMETHOPRIM- SULFAMETHOXAZOLE 94349715107 No Longer Active Taina Valentine Germain LIPITOR 40 MG TAB 1 po daily ATORVASTATIN CALCIUM 22036376518 Active Kateryna Villalpando PREMARIN 0.625 MG/GM CREA 1 gm intravaginally HS ESTROGENS, CONJUGATED VAGINAL 65235695325 No Longer Active Taina Valentine Germain ESTRACE 0.1 MG/GM CREA Apply 1/2 gram vaginally twice a week ESTRADIOL 00506754199 Active Kateryna Villalpando LUVENA VAGINAL MOISTURIZER GEL use in vagina every third day VAGINAL MOISTURIZER 30726907389 Active Taina Valentine Germain PREDNISONE 10 MG TAB 1/2 PO daily PREDNISONE 79347619352 No Longer Active Taina Valentine Germain XANAX 0.25 MG TABS 1 PO Q6hrs prn ALPRAZOLAM 00406651429 No Longer Active Taina Valentine Germain CELEXA 20 MG TABS 1 PO daily CITALOPRAM HYDROBROMIDE 29014126711 No Longer Active Taina Germain CLOBETASOL PROPIONATE E 0.05 % CREA Apply to infected areas BID CLOBETASOL PROP EMOLLIENT BASE 64082627136 No Longer Active Taina Germain PREDNISONE 10 MG TAB 4 PO daily until further notice PREDNISONE 94392809163 No Longer Active Taina Germain RESTASIS EMUL 1 drop each eye BID CYCLOSPORINE EMUL 27714664374 No Longer Active Taina Germain NYSTATIN 285429 U/ML SUSP 5cc PO QID for 7 days NYSTATIN 51627714710 No Longer Active Taina Germain ZITHROMAX Z-STEPHON 250 MG TABS as directed AZITHROMYCIN 97619378613 Active Taina YOUNG'Martha NASAL SPRAY (DEXAMETHASONE, GENTAMICIN, SALINE) 2 puffs each nostril TID for [address] HOWELL NASAL SPRAY ( DEXAMETHASONE, GENTAMICIN, SALINE) No Longer Active Taina Germain ALBUTEROL SULFATE 0.083 % NEBU SOLN 1 treatment TID prn ALBUTEROL SULFATE 50509649202 Active Taina Germain VITAMINS PLUS TABS 1 PO daily VIT-FE FUMARATE-FA TABS 92646742552 Active Taina Germain SYNTHROID 200 MCG TABS 1 PO daily LEVOTHYROXINE SODIUM 90061259104 Active Kateryna Villalpando LANSOPRAZOLE 30 MG CPDR 1 PO daily LANSOPRAZOLE 53888837944 Active Kateryna Villalpando LOMOTIL 2.5-0.025 MG TABS 1 PO TID prn DIPHENOXYLATE-ATROPINE 64227828974 Active Kateryna Villalpando ZOFRAN ODT 8 MG TBDP 1 PO Q6hrs prn nausea ONDANSETRON 99984240894 Active Kateryna Villalpando Immunizations Vaccine Administration Date Value Standard Description Influenza vaccine given done influenza virus vaccine, unspecified formulation pneumococcal immunization administered done pneumococcal polysaccharide vaccine, 23 valent Influenza vaccine given 2013 done influenza virus vaccine, unspecified formulation Vital Signs Date Name Value Unit Range Description blood pressure, diastolic - 8462-4 76 mm[Hg] BP matute blood pressure, systolic - 8480-6 124 mm[Hg] BP sys pulse rate E&M - 8867-4 66 /min Heart rate respiratory rate E&M - 9279-1 14 /min Resp rate weight E&M - 3141-9 171 [lb_av] Weight Measured blood pressure, diastolic - 8462-4 96 mm[Hg] [...] E&M - 3141-9 162 [lb_av] Weight Measured Diagnostic Results Date Name [...] 1+ Clinical Lists Update: CBC,CMP - Chemistry calcium, serum 9.8 mg/dL calcium, serum 10.1 mg/dL calcium, serum 9.7 mg/dL urea nitrogen, blood 17 mg/dL urea nitrogen, blood 14 mg/dL urea nitrogen, blood 13 mg/dL alkaline phosphatase, serum 104 U/L alkaline phosphatase, serum 98 U/L alkaline phosphatase, serum 93 U/L albumin, serum 4.2 g/dL albumin, serum 4.4 g/dL albumin, serum 4.2 g/dL Estimated Glomerular Filtration Rate (calc) 58 mL/min/1.73m2 Estimated Glomerular Filtration Rate (calc) 57 mL/min/1.73m2 Estimated Glomerular Filtration Rate (calc) 66 mL/min/1.73m2 glucose, plasma fasting 98 mg/dL glucose, plasma fasting 104 mg/dL glucose, plasma fasting 101 mg/dL anion gap, serum 17 anion gap, serum 14 anion gap, serum 13 sodium, serum 139 mmol/L sodium, serum 138 mmol/L sodium, serum 142 mmol/L bilirubin, serum, total 0.4 mg/dL bilirubin, serum, total 0.4 mg/dL bilirubin, serum, total 0.2 mg/dL alanine aminotransferase (SGPT), serum 48 U/L alanine aminotransferase (SGPT), serum 48 U/L alanine aminotransferase (SGPT), serum 45 U/L aspartate aminotransferase (SGOT), serum 56 U/L aspartate aminotransferase (SGOT), serum 56 U/L aspartate aminotransferase (SGOT), serum 53 U/L protein, total, serum 7.5 g/dL protein, total, serum 7.5 g/dL protein, total, serum 7.1 g/dL potassium, serum 4.5 mmol/L potassium, serum 4.3 mmol/L potassium, serum 4.1 mmol/L bilirubin, serum, direct 0.1 mg/dL bilirubin, serum, direct 0.1 mg/dL creatinine, serum 1.01 mg/dL creatinine, serum 1.02 mg/dL creatinine, serum 0.90 mg/dL carbon dioxide, venous blood 25 mmol/L carbon dioxide, venous blood 26 mmol/L carbon dioxide, venous blood 27 mmol/L chloride, serum 102 mmol/L chloride, serum 102 mmol/L chloride, serum 106 mmol/L Clinical Lists Update: CBC,CMP - Hematology red blood cell distribution width 16.9 % hematocrit, blood 37.3 % red blood cell distribution width 15.2 % mean corpuscular volume, RBC 99.4 fL mean corpuscular volume, RBC 102.5 fL mean corpuscular volume, RBC 98.2 fL leukocyte count, blood 6.33 10*3/mm3 leukocyte count, blood 5.91 10*3/mm3 leukocyte count, blood 6.87 10*3/mm3 erythrocyte (RBC) count 3.43 10*6/mm3 erythrocyte (RBC) count 3.66 10*6/mm3 erythrocyte (RBC) count 3.80 10*6/mm3 platelet count 412 10*3/mm3 platelet count 461 10*3/mm3 platelet count 437 10*3/mm3 hemoglobin, blood 11.0 g/dL hemoglobin, blood 12.2 g/dL hemoglobin, blood 12.4 g/dL hematocrit, blood 34.1 % hematocrit, blood 37.5 % red blood cell distribution width 14.9 % Clinical Lists Update: CBC,CMP DR LEDEZ[facility] - Chemistry calcium, serum 10.1 mg/dL chloride, serum 99 mmol/L alkaline phosphatase, serum 111 U/L albumin, serum 4.4 g/dL urea nitrogen, blood 19 mg/dL carbon dioxide, venous blood 25 mmol/L creatinine, serum 1.02 mg/dL bilirubin, serum, direct 0.2 mg/dL potassium, serum 4.4 mmol/L protein, total, serum 8.2 g/dL aspartate aminotransferase (SGOT), serum 61 U/L Estimated Glomerular Filtration Rate (calc) 57 mL/min/1.73m2 glucose, plasma fasting 102 mg/dL anion gap, serum 16 sodium, serum 136 mmol/L bilirubin, serum, total 0.2 mg/dL alanine aminotransferase (SGPT), serum 70 U/L Clinical Lists Update: CBC,CMP DR LEDEZMA LABS - Hematology hematocrit, blood 36.1 % hemoglobin, blood 12.1 g/dL platelet count 425 10*3/mm3 erythrocyte (RBC) count 3.53 10*6/mm3 leukocyte count, blood 7.60 10*3/mm3 mean corpuscular volume, RBC 102.3 fL red blood cell distribution width 14.0 % Clinical Lists Update: CBC,CMP,Bili Direct - Chemistry calcium, serum 9.7 mg/dL chloride, serum 103 mmol/L alkaline phosphatase, serum 106 U/L albumin, serum 4.2 g/dL urea nitrogen, blood 15 mg/dL carbon dioxide, venous blood 26 mmol/L creatinine, serum 0.96 mg/dL bilirubin, serum, direct 0.1 mg/dL potassium, serum 4.2 mmol/L protein, total, serum 7.2 g/dL aspartate aminotransferase (SGOT), serum 37 U/L Estimated Glomerular Filtration Rate (calc) 61 mL/min/1.73m2 glucose, plasma fasting 115 mg/dL anion gap, serum 14 sodium, serum 139 mmol/L bilirubin, serum, total 0.4 mg/dL alanine aminotransferase (SGPT), serum 34 U/L Clinical Lists Update: CBC,CMP,Bili Direct - Hematology hematocrit, blood 33.9 % hemoglobin, blood 10.8 g/dL platelet count 483 10*3/mm3 erythrocyte (RBC) count 3.48 10*6/mm3 leukocyte count, blood 6.66 10*3/mm3 mean corpuscular volume, RBC 97.4 fL red blood cell distribution width 16.1 % Clinical Lists Update: CBC,CMP,FERRITIN,CHOL,TRIG,TSH,FREE T4 - Chemistry Estimated Glomerular Filtration Rate (calc) 57 mL/min/1.73m2 glucose, plasma fasting 117 mg/dL anion gap, serum 19 sodium, serum 139 mmol/L triglyceride, serum, fasting 889 mg/dL bilirubin, serum, total 0.5 mg/dL alanine aminotransferase (SGPT), serum 74 U/L aspartate aminotransferase (SGOT), serum 79 U/L protein, total, serum 7.3 g/dL potassium, serum 4.6 mmol/L thyroid stimulating hormone, serum 2.20 u[iU]/mL thyroxine, serum, free 1.17 ng/dL ferritin, serum 108.90 ng/mL creatinine, serum 1.02 mg/dL carbon dioxide, venous blood 22 mmol/L cholesterol, serum 346 mg/dL chloride, serum 103 mmol/L calcium, serum 10.1 mg/dL urea nitrogen, blood 15 mg/dL alkaline phosphatase, serum 99 U/L albumin, serum 4.3 g/dL Clinical Lists Update: CBC,CMP,FERRITIN,CHOL,TRIG,TSH,FREE T4 - Hematology leukocyte count, blood 7.57 10*3/mm3 erythrocyte (RBC) count 4.04 10*6/mm3 mean corpuscular volume, RBC 101.2 fL platelet count 407 10*3/mm3 hemoglobin, blood 13.8 g/dL hematocrit, blood 40.9 % Clinical Lists Update: CBC,CMP,FERRITIN,FLP,TSH,FREE T4,HGA1C - Chemistry bilirubin, serum, total 0.4 mg/dL alanine aminotransferase (SGPT), serum 36 U/L aspartate aminotransferase (SGOT), serum 35 U/L protein, total, serum 7.3 g/dL potassium, serum 4.2 mmol/L LDL cholesterol, serum 70 mg/dL thyroid stimulating hormone, serum 0.20 u[iU]/mL hemoglobin A1C, blood, as % of total hemoglobin 5.60 % HDL cholesterol, serum 37 mg/dL thyroxine, serum, free 1.37 ng/dL ferritin, serum 31.87 ng/mL creatinine, serum 0.97 mg/dL carbon dioxide, venous blood 21 mmol/L cholesterol, serum 192 mg/dL chloride, serum 106 mmol/L calcium, serum 9.9 mg/dL urea nitrogen, blood 13 mg/dL alkaline phosphatase, serum 96 U/L albumin, serum 4.3 g/dL triglyceride, serum, fasting 425 mg/dL sodium, serum 140 mmol/L anion gap, serum 17 cholesterol/HDL ratio, serum, percent 5.2 very low density lipoproteins 85 mg/dL Estimated Glomerular Filtration Rate (calc) 61 mL/min/1.73m2 glucose, plasma fasting 117 mg/dL Clinical Lists Update: CBC,CMP,FERRITIN,FLP,TSH,FREE T4,HGA1C - Hematology leukocyte count, blood 6.33 10*3/mm3 platelet count 446 10*3/mm3 mean corpuscular volume, RBC 99.2 fL hemoglobin, blood 12.6 g/dL red blood cell distribution width 14.7 % hematocrit, blood 38.4 % erythrocyte (RBC) count 3.87 10*6/mm3 Office Visit: Dr Germain's Check Up: Established [...] venous blood 29 mmol/L Office Visit: Dr Germain'martha Check Up: Established Patient Visit - Hematology platelet count 405 10*3/mm3 erythrocyte (RBC) count 3.43 10*6/mm3 leukocyte count, blood 5.52 10*3/mm3 mean corpuscular volume, RBC 100.3 fL red blood cell distribution width 17.2 % hemoglobin, blood 11.4 g/dL hematocrit, blood 34.4 % Encounters Code Encounter Date Provider Facility CPT-54713 Ofc Vst, Est Level IV 20:36:26 CDT Taina Valentinenat Reganner, DO, FACP CPT-55838 Ofc Vst, Est Level IV 17:04:55 CDT Taina Valentine Germain, DO, FACP CPT-87277 Ofc Vst, Est Level IV 16:22:19 [employer] Taina Germain, DO, FACP CPT-47036 Ofc Vst, Est Level IV 16:57:55 [employer] SUPER[employer] Taina Germain, DO, FACP CPT-12165 Ofc Vst, Est Level III 20:30:19 CDT Taina Valentine Germain, DO, FACP CPT-87673 Ofc Vst, Est Level III 19:28:47 CDT Tainarussell Germain, DO, FACP CPT-49507 Ofc Vst, Est Level IV 19:13:50 CDT Tainarussell Germain, DO, FACP CPT-47898 Ofc Vst, Est Level IV 12:14:27 [employer] SUPER[employer] Taina Germain, DO, FACP CPT-23946 Ofc Vst, Est Level III 21:19:07 CDT Tainarussell Germain, DO, FACP CPT-70914 Ofc Vst, Est Level IV 13:12:49 CDT Taina Germain, DO, FACP CPT-70945 Ofc Vst, Est Level III 14:41:26 CDT Taina Germain, DO, FACP CPT-65695 Ofc Vst, Est Level IV 15:17:01 CDT Tainarussell Germain Taina Martha Jessa DO, FACP CPT-42805 Ofc Vst, Est Level III 16:02:16 CDT Taina Grijalva Jessa Germain DO, FACP CPT-73350 Ofc Vst, Est Level V 21:51:11 CDT Taina Grijalva Jessa Germain DO, FACP CPT-74109 Ofc Vst, Est Level IV 13:07:29 CDT Taina Reganner Tainarussell Germain DO, FACP CPT-86094 Ofc Vst, Est Level III 13:03:11 CDT Taina Grijalva Jessa Germain DO, FACP CPT-11584 Ofc Vst, Est Level III 15:13:37 [employer] SUPER[employer] Taina Grijalva Jessa Germain DO, FACP Procedures Code Procedure Name Date Entry Date Standard Description CPT-59203 Preventive, Est, (40-64) 14:37:50 CDT CPT-85275 Preventive, Est, (40-64) 20:40:07 CDT
--- OUTSIDE RECORDS SUMMARY | 2018-10-13 09:14 | XMS REPORT | Clinical Summary ---
Author Author User, [employer] Taina Germain DO, FACP Address Unknown Phone [...] minutes before meals and QHS DICYCLOMINE HCL 12375525482 Active Taina Germain URSODIOL 300 MG CAPS 1 po BID URSODIOL 25220451217 Active Taina Germain SANDOSTATIN LAR DEPOT 10 MG KIT 1 injection monthly OCTREOTIDE ACETATE 82955832932 No Longer Active Taina Germain XANAX 0.25 MG TABS 1 PO Q6hrs prn ALPRAZOLAM 42814037535 Active Taina Germain VALTREX 1 GM TABS 1 PO daily VALACYCLOVIR HCL 15913460905 Active Taina Germain CELEXA 20 MG TABS 1 PO daily CITALOPRAM HYDROBROMIDE 61997446593 No Longer Active Taina Germain GLEEVEC 400 MG TABS 1/2 tab PO QD IMATINIB MESYLATE 95290811137 Active Taina Valentine Germain VALACYCLOVIR HCL 1 GM TABS 1 PO daily VALACYCLOVIR HCL 86264214691 No Longer Active Taina Valentine Germain XANAX 0.25 MG TABS 1 PO Q6hrs prn ALPRAZOLAM 72239507179 No Longer Active Taina Valentine Germain ANTIVERT 25 MG TABS 1 PO Qhrs prn MECLIZINE HCL 14017944539 No Longer Active Taina Valentine Germain PREDNISONE 10 MG TAB 1/2 po QOD PREDNISONE 37068448893 No Longer Active Taina Valentine Germain BACTRIM DS 800-160 MG TAB 1 PO on MWF TRIMETHOPRIM- SULFAMETHOXAZOLE 99963378198 No Longer Active Taina Valentine Germain LIPITOR 40 MG TAB 1 po daily ATORVASTATIN CALCIUM 28154295584 Active Kateryna Villalpando PREMARIN 0.625 MG/GM CREA 1 gm intravaginally HS ESTROGENS, CONJUGATED VAGINAL 53425416436 No Longer Active Taina Valentine Germain ESTRACE 0.1 MG/GM CREA Apply 1/2 gram vaginally twice a week ESTRADIOL 62218431095 Active Kateryna Villalpando LUVENA VAGINAL MOISTURIZER GEL use in vagina every third day VAGINAL MOISTURIZER 60167439856 Active Taina Valentine Germain PREDNISONE 10 MG TAB 1/2 PO daily PREDNISONE 99146013988 No Longer Active Taina Valentine Germain XANAX 0.25 MG TABS 1 PO Q6hrs prn ALPRAZOLAM 39628315840 No Longer Active Taina Valentine Germain CELEXA 20 MG TABS 1 PO daily CITALOPRAM HYDROBROMIDE 82042683198 No Longer Active Taina Valentine Germain CLOBETASOL PROPIONATE E 0.05 % CREA Apply to infected areas BID CLOBETASOL PROP EMOLLIENT BASE 63004851105 No Longer Active Taina Germain PREDNISONE 10 MG TAB 4 PO daily until further notice PREDNISONE 99552929063 No Longer Active Taina Germain RESTASIS EMUL 1 drop each eye BID CYCLOSPORINE EMUL 36657153835 No Longer Active Taina Germain NYSTATIN 410941 U/ML SUSP 5cc PO QID for 7 days NYSTATIN 84646646133 No Longer Active Taina Germain ZITHROMAX Z-STEPHON 250 MG TABS as directed AZITHROMYCIN 57148278920 Active Taina YOUNG'José Miguel NASAL SPRAY (DEXAMETHASONE, GENTAMICIN, SALINE) 2 puffs each nostril TID for [address] HOWELL NASAL SPRAY ( DEXAMETHASONE, GENTAMICIN, SALINE) No Longer Active Taina Germain ALBUTEROL SULFATE 0.083 % NEBU SOLN 1 treatment TID prn ALBUTEROL SULFATE 83629510137 Active Taina Germain VITAMINS PLUS TABS 1 PO daily VIT-FE FUMARATE-FA TABS 21859116378 Active Taina Germain SYNTHROID 200 MCG TABS 1 PO daily LEVOTHYROXINE SODIUM 42394555791 Active Kateryna Villalpando LANSOPRAZOLE 30 MG CPDR 1 PO daily LANSOPRAZOLE 29362003472 Active Kateryna Villalpando LOMOTIL 2.5-0.025 MG TABS 1 PO TID prn DIPHENOXYLATE-ATROPINE 44946910995 Active Kateryna Villalpando ZOFRAN ODT 8 MG TBDP 1 PO Q6hrs prn nausea ONDANSETRON 28898922213 Active Kateryna Villalpando Immunizations Vaccine Administration Date [...] 1+ Clinical Lists Update: CBC,CMP - Chemistry albumin, serum 4.4 g/dL albumin, serum 4.2 [...] serum 102 mmol/L chloride, serum 106 mmol/L calcium, serum 9.8 mg/dL calcium, serum 10.1 mg/dL calcium, serum 9.7 mg/dL urea nitrogen, blood 17 mg/dL urea nitrogen, blood 14 mg/dL urea nitrogen, blood 13 mg/dL alkaline phosphatase, serum 104 U/L alkaline phosphatase, serum 98 U/L alkaline phosphatase, serum 93 U/L albumin, serum 4.2 g/dL Clinical Lists Update: CBC,CMP - Hematology red blood cell distribution width 16.9 % hematocrit, blood 37.3 % hematocrit, blood 37.5 % hematocrit, blood 34.1 % hemoglobin, blood 12.4 g/dL hemoglobin, blood 12.2 g/dL hemoglobin, blood 11.0 g/dL platelet count 437 10*3/mm3 platelet count 461 10*3/mm3 platelet count 412 10*3/mm3 erythrocyte (RBC) count 3.80 10*6/mm3 erythrocyte (RBC) count 3.66 10*6/mm3 erythrocyte (RBC) count 3.43 10*6/mm3 leukocyte count, blood 6.87 10*3/mm3 leukocyte count, blood 5.91 10*3/mm3 leukocyte count, blood 6.33 10*3/mm3 mean corpuscular volume, RBC 98.2 fL mean corpuscular volume, RBC 102.5 fL mean corpuscular volume, RBC 99.4 fL red blood cell distribution width 15.2 % red blood cell distribution width 14.9 % Clinical Lists Update: CBC,CMP DR LEDEZMA LABS - Chemistry bilirubin, serum, direct 0.2 mg/dL albumin, serum 4.4 g/dL creatinine, serum 1.02 mg/dL alkaline phosphatase, serum 111 U/L carbon dioxide, venous blood 25 mmol/L chloride, serum 99 mmol/L calcium, serum 10.1 mg/dL urea nitrogen, blood 19 mg/dL Estimated Glomerular Filtration Rate (calc) 57 mL/min/1.73m2 potassium, serum 4.4 mmol/L protein, total, serum 8.2 g/dL aspartate aminotransferase (SGOT), serum 61 U/L alanine aminotransferase (SGPT), serum 70 U/L bilirubin, serum, total 0.2 mg/dL sodium, serum 136 mmol/L anion gap, serum 16 glucose, plasma fasting 102 mg/dL Clinical Lists Update: CBC,CMP DR LEDEZMA LABS - Hematology erythrocyte (RBC) count 3.53 10*6/mm3 leukocyte count, blood 7.60 10*3/mm3 red blood cell distribution width 14.0 % hematocrit, blood 36.1 % platelet count 425 10*3/mm3 mean corpuscular volume, RBC 102.3 fL hemoglobin, blood 12.1 g/dL Clinical Lists Update: CBC,CMP,Bili Direct - Chemistry Estimated Glomerular Filtration Rate (calc) 64 mL/min/1.73m2 Estimated Glomerular Filtration Rate (calc) 59 mL/min/1.73m2 Estimated Glomerular Filtration Rate (calc) 61 mL/min/1.73m2 glucose, plasma fasting 110 mg/dL glucose, plasma fasting 94 mg/dL glucose, plasma fasting 115 mg/dL anion gap, serum 12 anion gap, serum 16 anion gap, serum 14 sodium, serum 140 mmol/L sodium, serum 140 mmol/L sodium, serum 139 mmol/L bilirubin, serum, total 0.2 mg/dL bilirubin, serum, total 0.3 mg/dL bilirubin, serum, total 0.4 mg/dL alanine aminotransferase (SGPT), serum 22 U/L alanine aminotransferase (SGPT), serum 30 U/L alanine aminotransferase (SGPT), serum 34 U/L aspartate aminotransferase (SGOT), serum 27 U/L aspartate aminotransferase (SGOT), serum 38 U/L aspartate aminotransferase (SGOT), serum 37 U/L protein, total, serum 6.3 g/dL protein, total, serum 7.0 g/dL protein, total, serum 7.2 g/dL potassium, serum 4.1 mmol/L potassium, serum 4.4 mmol/L potassium, serum 4.2 mmol/L bilirubin, serum, direct 0.1 mg/dL bilirubin, serum, direct 0.1 mg/dL creatinine, serum 0.93 mg/dL creatinine, serum 0.99 mg/dL creatinine, serum 0.96 mg/dL carbon dioxide, venous blood 27 mmol/L carbon dioxide, venous blood 23 mmol/L carbon dioxide, venous blood 26 mmol/L chloride, serum 105 mmol/L chloride, serum 105 mmol/L chloride, serum 103 mmol/L calcium, serum 8.9 mg/dL calcium, serum 94 mg/dL calcium, serum 9.7 mg/dL urea nitrogen, blood 11 mg/dL urea nitrogen, blood 12 mg/dL urea nitrogen, blood 15 mg/dL alkaline phosphatase, serum 90 U/L alkaline phosphatase, serum 100 U/L alkaline phosphatase, serum 106 U/L albumin, serum 3.9 g/dL albumin, serum 4.0 g/dL albumin, serum 4.2 g/dL Clinical Lists Update: CBC,CMP,Bili Direct - Hematology platelet count 504 10*3/mm3 platelet count 485 10*3/mm3 hemoglobin, blood 8.2 g/dL hemoglobin, blood 9.6 g/dL hemoglobin, blood 10.8 g/dL hematocrit, blood 26.6 % hematocrit, blood 30.6 % hematocrit, blood 33.9 % platelet count 483 10*3/mm3 erythrocyte (RBC) count 3.48 10*6/mm3 erythrocyte (RBC) count 3.12 10*6/mm3 erythrocyte (RBC) count 2.70 10*6/mm3 leukocyte count, blood 6.66 10*3/mm3 leukocyte count, blood 10.93 10*3/mm3 leukocyte count, blood 5.48 10*3/mm3 mean corpuscular volume, RBC 97.4 fL mean corpuscular volume, RBC 98.1 fL mean corpuscular volume, RBC 98.5 fL red blood cell distribution width 16.1 % red blood cell distribution width 17.6 % red blood cell distribution width 16.3 % Clinical Lists Update: CBC,CMP,Bili Direct DR LEDEZMA LABS - Chemistry calcium, serum 9.3 mg/dL Estimated Glomerular Filtration Rate (calc) 71 mL/min/1.73m2 alkaline phosphatase, serum 102 U/L albumin, serum 3.8 g/dL chloride, serum 106 mmol/L carbon dioxide, venous blood 27 mmol/L creatinine, serum 0.85 mg/dL bilirubin, serum, direct 0.1 mg/dL potassium, serum 4.5 mmol/L protein, total, serum 6.6 g/dL aspartate aminotransferase (SGOT), serum 29 U/L alanine aminotransferase (SGPT), serum 20 U/L bilirubin, serum, total 0.2 mg/dL sodium, serum 141 mmol/L anion gap, serum 13 glucose, plasma fasting 98 mg/dL urea nitrogen, blood 14 mg/dL Clinical Lists Update: CBC,CMP,Bili Direct DR LEDEZMA LABS - Hematology platelet count 529 10*3/mm3 hemoglobin, blood 8.7 g/dL hematocrit, blood 28.4 % red blood cell distribution width 16.5 % mean corpuscular volume, RBC 97.9 fL leukocyte count, blood 6.52 10*3/mm3 erythrocyte (RBC) count 2.90 10*6/mm3 Clinical Lists Update: CBC,CMP,FERRITIN,FLP,TSH,FREE T4,HGA1C - Chemistry very low density lipoproteins 85 mg/dL calcium, serum 9.9 mg/dL Estimated Glomerular Filtration Rate (calc) 61 mL/min/1.73m2 albumin, serum 4.3 g/dL alkaline phosphatase, serum 96 U/L urea nitrogen, blood 13 mg/dL cholesterol/HDL ratio, serum, percent 5.2 anion [...] serum 192 mg/dL chloride, serum 106 mmol/L glucose, plasma fasting 117 mg/dL Clinical Lists Update: CBC,CMP,FERRITIN,FLP,TSH,FREE T4,HGA1C - Hematology leukocyte count, blood 6.33 10*3/mm3 mean corpuscular volume, RBC 99.2 fL red blood cell distribution width 14.7 % hematocrit, blood 38.4 % erythrocyte (RBC) count 3.87 10*6/mm3 platelet count [...] % Encounters Code Encounter Date Provider Facility CPT-22022 Ofc Vst, Est Level IV 20:36:26 CDT Taina Valentine Germain, DO, FACP CPT-97848 Ofc Vst, Est Level IV 17:04:55 CDT Taina Germain, DO, FACP CPT-12269 Ofc Vst, Est Level IV 16:22:19 TRANSLITERATOR Taina Germain, DO, FACP CPT-19502 Ofc Vst, Est Level IV 16:57:55 TRANSLITERATOR Taina Germain, DO, FACP CPT-68713 Ofc Vst, Est Level III 20:30:19 CDT Taina Germain, DO, FACP CPT-78032 Ofc Vst, Est Level III 19:28:47 CDT Taina Germain, DO, FACP CPT-52796 Ofc Vst, Est Level IV 19:13:50 CDT Tainarussell Germain, DO, FACP CPT-43722 Ofc Vst, Est Level IV 12:14:27 TRANSLITERATOR Taina Germain, DO, FACP CPT-21510 Ofc Vst, Est Level III 21:19:07 CDT Tainarussell Germain, DO, FACP CPT-15352 Ofc Vst, Est Level IV 13:12:49 CDT Taina Valentine Reganner Taina Valdez Jessa, DO, FACP CPT-14144 Ofc Vst, Est Level III 14:41:26 CDT Taina Valentine Reganner Taina Valdez Jessa, DO, FACP CPT-80371 Ofc Vst, Est Level IV 15:17:01 CDT Taina Valentine Jessa Tainarussell Germain, DO, FACP CPT-21434 Ofc Vst, Est Level III 16:02:16 CDT Taina Valentine Reganner Taina José Miguel Jessa, DO, FACP CPT-90449 Ofc Vst, Est Level V 21:51:11 CDT Taina Valentine Reganner Taina Valdez Jessa, DO, FACP CPT-32328 Ofc Vst, Est Level IV 13:07:29 CDT Tainarussell Grijalva Germain Tainarussell Germain, DO, FACP CPT-24629 Ofc Vst, Est Level III 13:03:11 CDT Tainarussell Reganner Taina José Miguel Jessa, DO, FACP CPT-49654 Ofc Vst, Est Level III 15:13:37 TRANSLITERATOR Taina Grijalva Jessa Germain, DO, FACP Procedures Code Procedure Name Date Entry Date Standard Description CPT-90121 Preventive, Est, (40-64) 20:40:07 CDT
--- OUTSIDE RECORDS SUMMARY | 2018-10-13 09:15 | XMS REPORT | Clinical Summary ---
Author Author User, [employer] Taina Germain DO, FACP Address Unknown Phone [...] leukemia in relapse HYPERCHOLESTEROLEMIA 272.0 Active Taina eGrmain Pure hypercholesterolemia HYPOTHYROIDISM, PRIMARY 244.9 Active Taina [...] 300 MG CAPS 1 po BID URSODIOL 18345964656 No Longer Active Taina Germain BENTYL 10 MG CAPS 1 PO 15 minutes before meals and QHS DICYCLOMINE HCL 63386752540 No Longer Active Taina Germain SANDOSTATIN LAR DEPOT 10 MG KIT 1 injection monthly OCTREOTIDE ACETATE 98896014751 No Longer Active Taina Germain XANAX 0.25 MG TABS 1 PO Q6hrs prn ALPRAZOLAM 68997412939 Active Kateryna Villalpando VALTREX 1 GM TABS 1 PO daily VALACYCLOVIR HCL 77770367574 Active Kateryna Villalpando CELEXA 20 MG TABS 1 PO daily CITALOPRAM HYDROBROMIDE 58323456979 No Longer Active Taina Valentine Germain GLEEVEC 400 MG TABS 1/2 tab PO QD IMATINIB MESYLATE 90590774055 Active Kateryna Villalpando VALACYCLOVIR HCL 1 GM TABS 1 PO daily VALACYCLOVIR HCL 59955225821 No Longer Active Taina Valentine Germain XANAX 0.25 MG TABS 1 PO Q6hrs prn ALPRAZOLAM 81379036882 No Longer Active Taina Valentine Germain ANTIVERT 25 MG TABS 1 PO Qhrs prn MECLIZINE HCL 32028822686 No Longer Active Taina Valentine Germain PREDNISONE 10 MG TAB 1/2 po QOD PREDNISONE 57161953344 No Longer Active Taina Valentine Germain BACTRIM DS 800-160 MG TAB 1 PO on MWF TRIMETHOPRIM- SULFAMETHOXAZOLE 70540539865 No Longer Active Taina Valentine Germain LIPITOR 40 MG TAB 1 po daily ATORVASTATIN CALCIUM 29796016204 Active Kateryna Villalpando PREMARIN 0.625 MG/GM CREA 1 gm intravaginally HS ESTROGENS, CONJUGATED VAGINAL 47211164814 No Longer Active Taina Valentine Germain ESTRACE 0.1 MG/GM CREA Apply 1/2 gram vaginally twice a week ESTRADIOL 77735905131 Active Kateryna Villalpando LUVENA VAGINAL MOISTURIZER GEL use in vagina every third day VAGINAL MOISTURIZER 33083618712 Active Tainarussell Germain PREDNISONE 10 MG TAB 1/2 PO daily PREDNISONE 13941437343 No Longer Active Taina Valentine Germain XANAX 0.25 MG TABS 1 PO Q6hrs prn ALPRAZOLAM 34158163954 No Longer Active Taina Valentine Germain CELEXA 20 MG TABS 1 PO daily CITALOPRAM HYDROBROMIDE 34485296158 No Longer Active Taina Germain CLOBETASOL PROPIONATE E 0.05 % CREA Apply to infected areas BID CLOBETASOL PROP EMOLLIENT BASE 07170322760 No Longer Active Taina Germain PREDNISONE 10 MG TAB 4 PO daily until further notice PREDNISONE 52283105355 No Longer Active Taina Germain RESTASIS EMUL 1 drop each eye BID CYCLOSPORINE EMUL 51462127995 No Longer Active Taina Germain NYSTATIN 091551 U/ML SUSP 5cc PO QID for 7 days NYSTATIN 61906269464 No Longer Active Taina Germain ZITHROMAX Z-STEPHON 250 MG TABS as directed AZITHROMYCIN 62424464163 Active Taina YOUNG'José Miguel NASAL SPRAY (DEXAMETHASONE, GENTAMICIN, SALINE) 2 puffs each nostril TID for [address] HOWELL NASAL SPRAY ( DEXAMETHASONE, GENTAMICIN, SALINE) No Longer Active Taina Germain ALBUTEROL SULFATE 0.083 % NEBU SOLN 1 treatment TID prn ALBUTEROL SULFATE 19834200282 Active Taina Germain VITAMINS PLUS TABS 1 PO daily VIT-FE FUMARATE-FA TABS Active Kateryna Villalpando SYNTHROID 200 MCG TABS 1 PO daily LEVOTHYROXINE SODIUM 86431312997 Active Kateryna Villalpando LANSOPRAZOLE 30 MG CPDR 1 PO daily LANSOPRAZOLE 26942666482 Active Kateryna Villalpando LOMOTIL 2.5-0.025 MG TABS 1 PO TID prn DIPHENOXYLATE-ATROPINE 35499253941 Active Kateryna Villalpando ZOFRAN ODT 8 MG TBDP 1 PO Q6hrs prn nausea ONDANSETRON 76742028818 Active Kateryna Villalpando Immunizations Vaccine Administration Date [...] E&M - 9279-1 14 /min Resp rate Diagnostic Results Date Name Value Unit Range [...] 1+ Clinical Lists Update: CBC,CMP - Chemistry urea nitrogen, blood 13 mg/dL alkaline phosphatase, [...] 17 mg/dL alkaline phosphatase, serum 104 U/L albumin, serum 4.2 g/dL Estimated Glomerular Filtration Rate (calc) 59 mL/min/1.73m2 glucose, plasma fasting 113 mg/dL anion gap, serum 18 sodium, serum 139 mmol/L bilirubin, serum, total 0.5 mg/dL alanine aminotransferase (SGPT), serum 86 U/L aspartate aminotransferase (SGOT), serum 76 U/L protein, total, serum 7.3 g/dL potassium, serum 4.5 mmol/L bilirubin, serum, direct 0.2 mg/dL creatinine, serum 0.99 mg/dL carbon dioxide, venous blood 22 mmol/L chloride, serum 104 mmol/L calcium, serum 10.1 mg/dL urea nitrogen, blood 16 mg/dL alkaline phosphatase, serum 91 U/L albumin, serum 4.4 g/dL Estimated Glomerular Filtration Rate (calc) 66 mL/min/1.73m2 glucose, plasma fasting 101 mg/dL anion gap, serum 13 sodium, serum 142 mmol/L bilirubin, serum, total 0.2 mg/dL alanine aminotransferase (SGPT), serum 45 U/L aspartate aminotransferase (SGOT), serum 53 U/L protein, total, serum 7.1 g/dL potassium, serum 4.1 mmol/L bilirubin, serum, direct 0.1 mg/dL creatinine, serum 0.90 mg/dL carbon dioxide, venous blood 27 mmol/L chloride, serum 106 mmol/L calcium, serum 9.7 mg/dL Clinical Lists Update: CBC,CMP - Hematology hematocrit, blood 37.5 % red blood cell distribution width 16.9 % mean corpuscular volume, RBC 99.4 fL leukocyte count, blood 6.33 10*3/mm3 erythrocyte (RBC) count 3.43 10*6/mm3 platelet count 412 10*3/mm3 hemoglobin, blood 11.0 g/dL hematocrit, blood 34.1 % red blood cell distribution width 15.6 % mean corpuscular volume, RBC 101.6 fL leukocyte count, blood 6.51 10*3/mm3 erythrocyte (RBC) count 3.78 10*6/mm3 platelet count 371 10*3/mm3 hemoglobin, blood 13.4 g/dL hematocrit, blood 38.4 % red blood cell distribution width 15.2 [...] count 461 10*3/mm3 hemoglobin, blood 12.2 g/dL Clinical Lists Update: CBC,CMP DR LEDEZMA [...] serum 16 glucose, plasma fasting 102 mg/dL Estimated Glomerular Filtration Rate (calc) 57 mL/min/1.73m2 Clinical Lists Update: CBC,CMP DR LEDEZMA LABS - Hematology mean corpuscular volume, RBC 102.3 fL leukocyte count, blood 7.60 10*3/mm3 erythrocyte (RBC) count 3.53 10*6/mm3 platelet count 425 10*3/mm3 hemoglobin, blood 12.1 g/dL hematocrit, blood 36.1 % red blood cell distribution width 14.0 % Clinical Lists Update: CBC,CMP,BILI DIRECT - Chemistry urea nitrogen, blood 17 mg/dL alkaline phosphatase, serum 93 U/L albumin, serum 4.4 g/dL alanine aminotransferase (SGPT), serum 89 U/L bilirubin, serum, total 0.6 mg/dL sodium, serum 136 mmol/L anion gap, serum 17 glucose, plasma fasting 109 mg/dL Estimated Glomerular Filtration Rate (calc) 56 mL/min/1.73m2 calcium, serum 10.4 mg/dL chloride, serum 104 mmol/L carbon dioxide, venous blood 19 mmol/L creatinine, serum 1.04 mg/dL bilirubin, serum, direct 0.2 mg/dL potassium, serum 4.3 mmol/L aspartate aminotransferase (SGOT), serum 88 U/L protein, total, serum 7.4 g/dL Clinical Lists Update: CBC,CMP,BILI DIRECT - Hematology red blood cell distribution width 14.2 % mean corpuscular volume, RBC 100.5 fL leukocyte count, blood 7.27 10*3/mm3 erythrocyte (RBC) count 4.01 10*6/mm3 platelet count 408 10*3/mm3 hemoglobin, blood 13.7 g/dL hematocrit, blood 40.3 % Clinical Lists Update: CBC,CMP,FERRITIN,CHOL,TRIG,TSH,FREE T4 - Chemistry chloride, serum 103 mmol/L triglyceride, serum, fasting 889 mg/dL alanine aminotransferase (SGPT), serum 74 U/L aspartate aminotransferase (SGOT), serum 79 U/L protein, total, serum 7.3 g/dL potassium, serum 4.6 mmol/L sodium, serum 139 mmol/L anion gap, serum 19 glucose, plasma fasting 117 mg/dL Estimated Glomerular Filtration Rate (calc) 57 mL/min/1.73m2 albumin, serum 4.3 g/dL alkaline phosphatase, serum 99 U/L urea nitrogen, blood 15 mg/dL calcium, serum 10.1 mg/dL bilirubin, serum, total 0.5 mg/dL cholesterol, serum 346 mg/dL carbon dioxide, venous blood 22 mmol/L creatinine, serum 1.02 mg/dL ferritin, serum 108.90 ng/mL thyroxine, serum, free 1.17 ng/dL thyroid stimulating hormone, serum 2.20 u[iU]/mL Clinical Lists Update: CBC,CMP,FERRITIN,CHOL,TRIG,TSH,FREE T4 - Hematology hematocrit, blood 40.9 % mean corpuscular volume, RBC 101.2 fL leukocyte count, blood 7.57 10*3/mm3 erythrocyte (RBC) count 4.04 10*6/mm3 platelet count 407 10*3/mm3 hemoglobin, blood 13.8 g/dL Clinical Lists Update: CBC,CMP,FERRITIN,FLP,TSH,FREE T4,HGA1C - Chemistry albumin, serum 4.3 g/dL alkaline phosphatase, serum 96 U/L urea nitrogen, blood 13 mg/dL calcium, serum 9.9 mg/dL chloride, serum 106 mmol/L cholesterol, serum 192 mg/dL carbon dioxide, venous blood 21 mmol/L creatinine, serum 0.97 mg/dL ferritin, serum 31.87 ng/mL thyroxine, serum, free 1.37 ng/dL HDL cholesterol, serum 37 mg/dL hemoglobin A1C, blood, as % of total hemoglobin 5.60 % thyroid stimulating hormone, serum 0.20 u[iU]/mL LDL cholesterol, serum 70 mg/dL potassium, serum 4.2 mmol/L protein, total, serum 7.3 g/dL aspartate aminotransferase (SGOT), serum 35 U/L bilirubin, serum, total 0.4 mg/dL triglyceride, serum, fasting 425 mg/dL sodium, serum 140 mmol/L anion gap, serum 17 cholesterol/HDL ratio, serum, percent 5.2 very low density lipoproteins 85 mg/dL glucose, plasma fasting 117 mg/dL Estimated Glomerular Filtration Rate (calc) 61 mL/min/1.73m2 alanine aminotransferase (SGPT), serum 36 U/L Clinical Lists Update: CBC,CMP,FERRITIN,FLP,TSH,FREE T4,HGA1C - Hematology red blood cell distribution width 14.7 % mean corpuscular volume, RBC 99.2 fL leukocyte count, blood 6.33 10*3/mm3 erythrocyte (RBC) count 3.87 10*6/mm3 platelet count 446 10*3/mm3 hemoglobin, blood 12.6 g/dL hematocrit, blood 38.4 % Office Visit: Dr Germain's Check Up: Established [...] % Encounters Code Encounter Date Provider Facility CPT-43003 Ofc Vst, Est Level IV 20:36:26 CDT Tainarussell Germain, DO, FACP CPT-40125 Ofc Vst, Est Level IV 17:04:55 CDT Taina Germain, DO, FACP CPT-14392 Ofc Vst, Est Level IV 16:22:19 [employer] Taina Germain, DO, FACP CPT-21374 Ofc Vst, Est Level IV 16:57:55 [employer] Taina Germain, DO, FACP CPT-99176 Ofc Vst, Est Level III 20:30:19 CDT Taina Germain, DO, FACP CPT-84797 Ofc Vst, Est Level III 19:28:47 CDT Taina Germain, DO, FACP CPT-62166 Ofc Vst, Est Level IV 19:13:50 CDT Taina Valentine Valdez Germain, DO, FACP CPT-83407 Ofc Vst, Est Level IV 12:14:27 [employer] Taina Valentine Germain, DO, FACP CPT-95788 Ofc Vst, Est Level III 21:19:07 CDT Taina Valentine Valdez Germain, DO, FACP CPT-07575 Ofc Vst, Est Level IV 13:12:49 CDT Taina Valentine Valdez Germain, DO, FACP CPT-23696 Ofc Vst, Est Level III 14:41:26 CDT Taina Valentine Valdez Germain, DO, FACP CPT-73083 Ofc Vst, Est Level IV 15:17:01 CDT Taina Valentine Valdez Germain, DO, FACP CPT-33876 Ofc Vst, Est Level III 16:02:16 CDT Tainarussell Valdez Germain, DO, FACP CPT-77195 Ofc Vst, Est Level V 21:51:11 CDT Taina Valentine Germain, DO, FACP CPT-82674 Ofc Vst, Est Level IV 13:07:29 CDT Tainarussell Valdez Germain, DO, FACP CPT-37121 Ofc Vst, Est Level III 13:03:11 CDT Taina Valentine Germain, DO, FACP CPT-15569 Ofc Vst, Est Level III 15:13:37 [employer] Taina Valdez Germain, DO, FACP Procedures Code Procedure Name Date Entry Date Standard Description CPT-62644 Preventive, Est, (40-64) 14:37:50 CDT CPT-34530 Preventive, Est, (40-64) 20:40:07 CDT
--- OUTSIDE RECORDS SUMMARY | 2018-10-13 09:15 | XMS REPORT | Clinical Summary ---
Author Author User, Admazely Taina Germain DO, FACP Address Unknown Phone [...] marrow transplant CANDIDIASIS, ESOPHAGEAL 112.84 Resolved Taina Gemrain Candidal esophagitis HERPES ESOPHAGITIS 530.19 Resolved Taina [...] minutes before meals and QHS DICYCLOMINE HCL 39171716543 Active Taina Germain URSODIOL 300 MG CAPS 1 po BID URSODIOL 89868024859 Active Taina Germain SANDOSTATIN LAR DEPOT 10 MG KIT 1 injection monthly OCTREOTIDE ACETATE 08674055409 No Longer Active Taina Germain XANAX 0.25 MG TABS 1 PO Q6hrs prn ALPRAZOLAM 19883773097 Active Taina Germain VALTREX 1 GM TABS 1 PO daily VALACYCLOVIR HCL 56157626685 Active Taina Germain CELEXA 20 MG TABS 1 PO daily CITALOPRAM HYDROBROMIDE 55932198956 No Longer Active Taina Germain GLEEVEC 400 MG TABS 1/2 tab PO QD IMATINIB MESYLATE 29495442533 Active Taina Valentine Germain VALACYCLOVIR HCL 1 GM TABS 1 PO daily VALACYCLOVIR HCL 01184294871 No Longer Active Taina Valentine Germain XANAX 0.25 MG TABS 1 PO Q6hrs prn ALPRAZOLAM 78157526436 No Longer Active Taina Valentine Germain ANTIVERT 25 MG TABS 1 PO Qhrs prn MECLIZINE HCL 85875325107 No Longer Active Taina Valentine Germain PREDNISONE 10 MG TAB 1/2 po QOD PREDNISONE 01479809739 No Longer Active Taina Valentine Germain BACTRIM DS 800-160 MG TAB 1 PO on MWF TRIMETHOPRIM- SULFAMETHOXAZOLE 78068912868 No Longer Active Taina Valentine Germain LIPITOR 40 MG TAB 1 po daily ATORVASTATIN CALCIUM 68184004602 Active Kateryna Villalpando PREMARIN 0.625 MG/GM CREA 1 gm intravaginally HS ESTROGENS, CONJUGATED VAGINAL 06238252729 No Longer Active Taina Valentine Germain ESTRACE 0.1 MG/GM CREA Apply 1/2 gram vaginally twice a week ESTRADIOL 98146013441 Active Kateryna Villalpando LUVENA VAGINAL MOISTURIZER GEL use in vagina every third day VAGINAL MOISTURIZER 88646905074 Active Taina Valentine Germain PREDNISONE 10 MG TAB 1/2 PO daily PREDNISONE 74795511222 No Longer Active Taina Valentine Germain XANAX 0.25 MG TABS 1 PO Q6hrs prn ALPRAZOLAM 70109786534 No Longer Active Taina Valentine Germain CELEXA 20 MG TABS 1 PO daily CITALOPRAM HYDROBROMIDE 50226879417 No Longer Active Taina Valentine Germain CLOBETASOL PROPIONATE E 0.05 % CREA Apply to infected areas BID CLOBETASOL PROP EMOLLIENT BASE 28561306896 No Longer Active Taina Germain PREDNISONE 10 MG TAB 4 PO daily until further notice PREDNISONE 08267948420 No Longer Active Taina Germain RESTASIS EMUL 1 drop each eye BID CYCLOSPORINE EMUL 04628577541 No Longer Active Taina Germain NYSTATIN 858206 U/ML SUSP 5cc PO QID for 7 days NYSTATIN 36596497332 No Longer Active Taina Germain ZITHROMAX Z-STEPHON 250 MG TABS as directed AZITHROMYCIN 90672397359 Active Taina YOUNG'José Miguel NASAL SPRAY (DEXAMETHASONE, GENTAMICIN, SALINE) 2 puffs each nostril TID for [address] HOWELL NASAL SPRAY ( DEXAMETHASONE, GENTAMICIN, SALINE) No Longer Active Taina Germain ALBUTEROL SULFATE 0.083 % NEBU SOLN 1 treatment TID prn ALBUTEROL SULFATE 16703959746 Active Taina Germain VITAMINS PLUS TABS 1 PO daily VIT-FE FUMARATE-FA TABS 09898647593 Active Taina Germain SYNTHROID 200 MCG TABS 1 PO daily LEVOTHYROXINE SODIUM 90206158472 Active Kateryna Villalpando LANSOPRAZOLE 30 MG CPDR 1 PO daily LANSOPRAZOLE 23578466569 Active Kateryna Villalpando LOMOTIL 2.5-0.025 MG TABS 1 PO TID prn DIPHENOXYLATE-ATROPINE 05234800530 Active Kateryna Villalpando ZOFRAN ODT 8 MG TBDP 1 PO Q6hrs prn nausea ONDANSETRON 83114242173 Active Kateryna Villalpando Immunizations Vaccine Administration Date [...] % Encounters Code Encounter Date Provider Facility CPT-92607 Ofc Vst, Est Level IV 20:36:26 CDT Taina Valentine Germain, DO, FACP CPT-91592 Ofc Vst, Est Level IV 17:04:55 CDT Taina Germain, DO, FACP CPT-47713 Ofc Vst, Est Level IV 16:22:19 [employer] FISHER[employer] Taina Germain, DO, FACP CPT-91471 Ofc Vst, Est Level IV 16:57:55 [employer] FISHER[employer] Taina Germain, DO, FACP CPT-41282 Ofc Vst, Est Level III 20:30:19 CDT Taina Germain, DO, FACP CPT-00070 Ofc Vst, Est Level III 19:28:47 CDT Taina Germain, DO, FACP CPT-50420 Ofc Vst, Est Level IV 19:13:50 CDT Tainarussell Germain, DO, FACP CPT-24436 Ofc Vst, Est Level IV 12:14:27 CRAB FISHERMAN Taina Germain, DO, FACP CPT-29750 Ofc Vst, Est Level III 21:19:07 CDT Tainarussell Germain, DO, FACP CPT-11822 Ofc Vst, Est Level IV 13:12:49 CDT Taina Valentine Reganner Taina Valdez Jessa, DO, FACP CPT-06520 Ofc Vst, Est Level III 14:41:26 CDT Taina Valentine Reganner Taina Valdez Jessa, DO, FACP CPT-07886 Ofc Vst, Est Level IV 15:17:01 CDT Taina Valentine Jessa Tainarussell Germain, DO, FACP CPT-25450 Ofc Vst, Est Level III 16:02:16 CDT Taina Valentine Reganner Taina José Miguel Jessa, DO, FACP CPT-41613 Ofc Vst, Est Level V 21:51:11 CDT Taina Valentine Reganner Taina Valdez Jessa, DO, FACP CPT-49407 Ofc Vst, Est Level IV 13:07:29 CDT Tainarussell Grijalva Germain Tainarussell Germain, DO, FACP CPT-33486 Ofc Vst, Est Level III 13:03:11 CDT Tainarussell Reganner Taina José Miguel Jessa, DO, FACP CPT-51538 Ofc Vst, Est Level III 15:13:37 CRAB FISHERMAN Taina Grijalva Jessa Germain, DO, FACP Procedures Code Procedure Name Date Entry Date Standard Description CPT-51198 Preventive, Est, (40-64) 20:40:07 CDT
--- OUTSIDE RECORDS SUMMARY | 2018-10-13 09:16 | XMS REPORT | Clinical Summary ---
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 HYPERCHOLESTEROLEMIA 272.0 Active Taian Germain Pure hypercholesterolemia HYPOTHYROIDISM, PRIMARY 244.9 Active [...] minutes before meals and QHS DICYCLOMINE HCL 77803074986 Active Taina Germain URSODIOL 300 MG CAPS 1 po BID URSODIOL 45907029216 Active Taina Germain SANDOSTATIN LAR DEPOT 10 MG KIT 1 injection monthly OCTREOTIDE ACETATE 32176431467 No Longer Active Taina Germain XANAX 0.25 MG TABS 1 PO Q6hrs prn ALPRAZOLAM 76137702260 Active Taina Germain VALTREX 1 GM TABS 1 PO daily VALACYCLOVIR HCL 07183492528 Active Taina Germain CELEXA 20 MG TABS 1 PO daily CITALOPRAM HYDROBROMIDE 84685240747 No Longer Active Taina Germain GLEEVEC 400 MG TABS 1/2 tab PO QD IMATINIB MESYLATE 27478614925 Active Taina Valentine Germain VALACYCLOVIR HCL 1 GM TABS 1 PO daily VALACYCLOVIR HCL 74809911596 No Longer Active Taina Valentine Germain XANAX 0.25 MG TABS 1 PO Q6hrs prn ALPRAZOLAM 40344655193 No Longer Active Taina Valentine Germain ANTIVERT 25 MG TABS 1 PO Qhrs prn MECLIZINE HCL 55709296525 No Longer Active Taina Valentine Germain PREDNISONE 10 MG TAB 1/2 po QOD PREDNISONE 72860708058 No Longer Active Taina Valentine Germain BACTRIM DS 800-160 MG TAB 1 PO on MWF TRIMETHOPRIM- SULFAMETHOXAZOLE 93307080066 No Longer Active Taina Valentine Germain LIPITOR 40 MG TAB 1 po daily ATORVASTATIN CALCIUM 40946972599 Active Kateryna Villalpando PREMARIN 0.625 MG/GM CREA 1 gm intravaginally HS ESTROGENS, CONJUGATED VAGINAL 63031556847 No Longer Active Taina Valentine Germain ESTRACE 0.1 MG/GM CREA Apply 1/2 gram vaginally twice a week ESTRADIOL 51192139193 Active Kateryna Villalpando LUVENA VAGINAL MOISTURIZER GEL use in vagina every third day VAGINAL MOISTURIZER 68852131250 Active Taina Valentine Germain PREDNISONE 10 MG TAB 1/2 PO daily PREDNISONE 56793736298 No Longer Active Taina Valentine Germain XANAX 0.25 MG TABS 1 PO Q6hrs prn ALPRAZOLAM 43101938733 No Longer Active Taina Valentine Germain CELEXA 20 MG TABS 1 PO daily CITALOPRAM HYDROBROMIDE 06600568327 No Longer Active Taina Valentine Germain CLOBETASOL PROPIONATE E 0.05 % CREA Apply to infected areas BID CLOBETASOL PROP EMOLLIENT BASE 05038639637 No Longer Active Taina Germain PREDNISONE 10 MG TAB 4 PO daily until further notice PREDNISONE 28147501434 No Longer Active Taina Germain RESTASIS EMUL 1 drop each eye BID CYCLOSPORINE EMUL 12825766108 No Longer Active Taina Germain NYSTATIN 828239 U/ML SUSP 5cc PO QID for 7 days NYSTATIN 99108488074 No Longer Active Taina Germain ZITHROMAX Z-STEPHON 250 MG TABS as directed AZITHROMYCIN 56152044791 Active Taina YOUNG'José Miguel NASAL SPRAY (DEXAMETHASONE, GENTAMICIN, SALINE) 2 puffs each nostril TID for [address] HOWELL NASAL SPRAY ( DEXAMETHASONE, GENTAMICIN, SALINE) No Longer Active Taina Germain ALBUTEROL SULFATE 0.083 % NEBU SOLN 1 treatment TID prn ALBUTEROL SULFATE 87020430297 Active Taina Germain VITAMINS PLUS TABS 1 PO daily VIT-FE FUMARATE-FA TABS 10826100248 Active Taina Germain SYNTHROID 200 MCG TABS 1 PO daily LEVOTHYROXINE SODIUM 21374510071 Active Kateryna Villalpando LANSOPRAZOLE 30 MG CPDR 1 PO daily LANSOPRAZOLE 66016934656 Active Kateryna Villalpando LOMOTIL 2.5-0.025 MG TABS 1 PO TID prn DIPHENOXYLATE-ATROPINE 47185464013 Active Kateryna Villalpando ZOFRAN ODT 8 MG TBDP 1 PO Q6hrs prn nausea ONDANSETRON 47148365503 Active Kateryna Villalpando Immunizations Vaccine Administration Date [...] % Encounters Code Encounter Date Provider Facility CPT-45197 Ofc Vst, Est Level IV 20:36:26 CDT Taina Valentine Germain, DO, FACP CPT-22220 Ofc Vst, Est Level IV 17:04:55 CDT Taina Germain, DO, FACP CPT-55563 Ofc Vst, Est Level IV 16:22:19 [employer] Taina Germain, DO, FACP CPT-52268 Ofc Vst, Est Level IV 16:57:55 [employer] Taina Germain, DO, FACP CPT-27161 Ofc Vst, Est Level III 20:30:19 CDT Taina Germain, DO, FACP CPT-46718 Ofc Vst, Est Level III 19:28:47 CDT Taina Germain, DO, FACP CPT-52753 Ofc Vst, Est Level IV 19:13:50 CDT Tainarussell Germain, DO, FACP CPT-33932 Ofc Vst, Est Level IV 12:14:27 [employer] Taina Germain, DO, FACP CPT-08767 Ofc Vst, Est Level III 21:19:07 CDT Tainarussell Germain, DO, FACP CPT-39367 Ofc Vst, Est Level IV 13:12:49 CDT Taina Valentine Reganner Taina José Miguel Jessa, DO, FACP CPT-27181 Ofc Vst, Est Level III 14:41:26 CDT Taina Valentine Reganner Taina José Miguel Jessa, DO, FACP CPT-87483 Ofc Vst, Est Level IV 15:17:01 CDT Taina Valentine Jessa Tainarussell Germain, DO, FACP CPT-16697 Ofc Vst, Est Level III 16:02:16 CDT Taina Valentine Jessa Taina José Miguel Jessa, DO, FACP CPT-93289 Ofc Vst, Est Level V 21:51:11 CDT Taina Valentine Reganner Taina José Miguel Jessa, DO, FACP CPT-85586 Ofc Vst, Est Level IV 13:07:29 CDT Tainarussell Grijalva Jessa Tainarussell Germain DO, FACP CPT-45485 Ofc Vst, Est Level III 13:03:11 CDT Tainarussell Reganner Tainarussell Germain, DO, FACP CPT-76002 Ofc Vst, Est Level III 15:13:37 [employer] Taina Grijalva Jessa Germain, DO, FACP Procedures Code Procedure Name Date Entry Date Standard Description CPT-92806 Preventive, Est, (40-64) 20:40:07 CDT
--- OUTSIDE RECORDS SUMMARY | 2018-10-13 09:16 | XMS REPORT | Clinical Summary ---
Author Author User, [employer] Taina Germain DO, FACP Address Unknown Phone [...] minutes before meals and QHS DICYCLOMINE HCL 98692807106 Active Taina Germain URSODIOL 300 MG CAPS 1 po BID URSODIOL 78362615545 Active Taina Germain SANDOSTATIN LAR DEPOT 10 MG KIT 1 injection monthly OCTREOTIDE ACETATE 55100627296 No Longer Active aTina Germain XANAX 0.25 MG TABS 1 PO Q6hrs prn ALPRAZOLAM 09797355423 Active Taina Germain VALTREX 1 GM TABS 1 PO daily VALACYCLOVIR HCL 33924227878 Active Taina Germain CELEXA 20 MG TABS 1 PO daily CITALOPRAM HYDROBROMIDE 85643000658 No Longer Active Taina Germain GLEEVEC 400 MG TABS 1/2 tab PO QD IMATINIB MESYLATE 81497753624 Active Taina Valentine Germain VALACYCLOVIR HCL 1 GM TABS 1 PO daily VALACYCLOVIR HCL 81575602353 No Longer Active Taina Valentine Germain XANAX 0.25 MG TABS 1 PO Q6hrs prn ALPRAZOLAM 72256755155 No Longer Active Taina Valentine Germain ANTIVERT 25 MG TABS 1 PO Qhrs prn MECLIZINE HCL 15038381232 No Longer Active Taina Valentine Germain PREDNISONE 10 MG TAB 1/2 po QOD PREDNISONE 87123239515 No Longer Active Taina Valentine Germain BACTRIM DS 800-160 MG TAB 1 PO on MWF TRIMETHOPRIM- SULFAMETHOXAZOLE 55256814118 No Longer Active Taina Valentine Germain LIPITOR 40 MG TAB 1 po daily ATORVASTATIN CALCIUM 91934906997 Active Kateryna Villalpando PREMARIN 0.625 MG/GM CREA 1 gm intravaginally HS ESTROGENS, CONJUGATED VAGINAL 96978587465 No Longer Active Taina Valentine Germain ESTRACE 0.1 MG/GM CREA Apply 1/2 gram vaginally twice a week ESTRADIOL 83383876598 Active Kateryna Villalpando LUVENA VAGINAL MOISTURIZER GEL use in vagina every third day VAGINAL MOISTURIZER 75365119189 Active Taina Valentine Germain PREDNISONE 10 MG TAB 1/2 PO daily PREDNISONE 44252671590 No Longer Active Taina Valentine Germain XANAX 0.25 MG TABS 1 PO Q6hrs prn ALPRAZOLAM 73983599819 No Longer Active Taina Valentine Germain CELEXA 20 MG TABS 1 PO daily CITALOPRAM HYDROBROMIDE 15701961510 No Longer Active Taina Valentine Germain CLOBETASOL PROPIONATE E 0.05 % CREA Apply to infected areas BID CLOBETASOL PROP EMOLLIENT BASE 23075047694 No Longer Active Taina Germain PREDNISONE 10 MG TAB 4 PO daily until further notice PREDNISONE 39969046459 No Longer Active Taina Germain RESTASIS EMUL 1 drop each eye BID CYCLOSPORINE EMUL 57947897706 No Longer Active Taina Germain NYSTATIN 037343 U/ML SUSP 5cc PO QID for 7 days NYSTATIN 74815823569 No Longer Active Taina Germain ZITHROMAX Z-STEPHON 250 MG TABS as directed AZITHROMYCIN 34692829273 Active Taina YOUNG'José Miguel NASAL SPRAY (DEXAMETHASONE, GENTAMICIN, SALINE) 2 puffs each nostril TID for [address] HOWELL NASAL SPRAY ( DEXAMETHASONE, GENTAMICIN, SALINE) No Longer Active Taina Germain ALBUTEROL SULFATE 0.083 % NEBU SOLN 1 treatment TID prn ALBUTEROL SULFATE 27422345244 Active Taina Germain VITAMINS PLUS TABS 1 PO daily VIT-FE FUMARATE-FA TABS 37375601536 Active Taina Germain SYNTHROID 200 MCG TABS 1 PO daily LEVOTHYROXINE SODIUM 91814180858 Active Kateryna Villalpando LANSOPRAZOLE 30 MG CPDR 1 PO daily LANSOPRAZOLE 88539320329 Active Kateryna Villalpando LOMOTIL 2.5-0.025 MG TABS 1 PO TID prn DIPHENOXYLATE-ATROPINE 21608788008 Active Kateryna Villalpando ZOFRAN ODT 8 MG TBDP 1 PO Q6hrs prn nausea ONDANSETRON 71868858088 Active Kateryna Villalpando Immunizations Vaccine Administration Date [...] % Encounters Code Encounter Date Provider Facility CPT-86081 Ofc Vst, Est Level IV 20:36:26 CDT Taina Valentine Germain, DO, FACP CPT-50209 Ofc Vst, Est Level IV 17:04:55 CDT Taina Germain, DO, FACP CPT-02891 Ofc Vst, Est Level IV 16:22:19 [employer] Taina Germain, DO, FACP CPT-18533 Ofc Vst, Est Level IV 16:57:55 [employer] Taina Germain, DO, FACP CPT-96340 Ofc Vst, Est Level III 20:30:19 CDT Taina Germain, DO, FACP CPT-00375 Ofc Vst, Est Level III 19:28:47 CDT Taina Germain, DO, FACP CPT-02160 Ofc Vst, Est Level IV 19:13:50 CDT Tainarussell Germain, DO, FACP CPT-79156 Ofc Vst, Est Level IV 12:14:27 [employer] WORKER Taina Germain, DO, FACP CPT-63362 Ofc Vst, Est Level III 21:19:07 CDT Tainarussell Germain, DO, FACP CPT-70130 Ofc Vst, Est Level IV 13:12:49 CDT Taina Valentine Reganner Taina José Miguel Jessa, DO, FACP CPT-37168 Ofc Vst, Est Level III 14:41:26 CDT Taina Valentine Reganner Taina José Miguel Jessa, DO, FACP CPT-50974 Ofc Vst, Est Level IV 15:17:01 CDT Taina Valentine Jessa Tainarussell Germain, DO, FACP CPT-21296 Ofc Vst, Est Level III 16:02:16 CDT Taina Valentine Jessa Taina José Miguel Jessa, DO, FACP CPT-17327 Ofc Vst, Est Level V 21:51:11 CDT Taina Valentine Reganner Taina José Miguel Jessa, DO, FACP CPT-71379 Ofc Vst, Est Level IV 13:07:29 CDT Tainarussell rGijalva Jessa Tainarussell Germain DO, FACP CPT-35394 Ofc Vst, Est Level III 13:03:11 CDT Tainarussell Reganner Tainarussell Germain, DO, FACP CPT-39291 Ofc Vst, Est Level III 15:13:37 [employer] Taina Grijalva Jessa Germain, DO, FACP Procedures Code Procedure Name Date Entry Date Standard Description CPT-90893 Preventive, Est, (40-64) 20:40:07 CDT
--- OUTSIDE RECORDS SUMMARY | 2018-10-13 09:17 | XMS REPORT | Clinical Summary ---
Author Author User, [employer] Taina Germain DO, FACP Address Unknown Phone [...] 300 MG CAPS 1 po BID URSODIOL 65634496380 No Longer Active Taina Germain BENTYL 10 MG CAPS 1 PO 15 minutes before meals and QHS DICYCLOMINE HCL 07641981790 No Longer Active Taina Germain SANDOSTATIN LAR DEPOT 10 MG KIT 1 injection monthly OCTREOTIDE ACETATE 44407790535 No Longer Active Taina Germain XANAX 0.25 MG TABS 1 PO Q6hrs prn ALPRAZOLAM 71537865188 Active Kateryna Villalpando VALTREX 1 GM TABS 1 PO daily VALACYCLOVIR HCL 34636295059 Active Kateryna Villalpando CELEXA 20 MG TABS 1 PO daily CITALOPRAM HYDROBROMIDE 21856346647 No Longer Active Taina Valentine Germain GLEEVEC 400 MG TABS 1/2 tab PO QD IMATINIB MESYLATE 90145152913 Active Kateryna Villalpando VALACYCLOVIR HCL 1 GM TABS 1 PO daily VALACYCLOVIR HCL 68548098573 No Longer Active Taina Valentine Germain XANAX 0.25 MG TABS 1 PO Q6hrs prn ALPRAZOLAM 94256260642 No Longer Active Taina Valentine Germain ANTIVERT 25 MG TABS 1 PO Qhrs prn MECLIZINE HCL 28073822957 No Longer Active Taina Valentine Germain PREDNISONE 10 MG TAB 1/2 po QOD PREDNISONE 40101866451 No Longer Active Taina Valentine Germain BACTRIM DS 800-160 MG TAB 1 PO on MWF TRIMETHOPRIM- SULFAMETHOXAZOLE 40764078896 No Longer Active Taina Valentine Germain LIPITOR 40 MG TAB 1 po daily ATORVASTATIN CALCIUM 84073023143 Active Kateryna Villalpando PREMARIN 0.625 MG/GM CREA 1 gm intravaginally HS ESTROGENS, CONJUGATED VAGINAL 70223327333 No Longer Active Taina Valentine Germain ESTRACE 0.1 MG/GM CREA Apply 1/2 gram vaginally twice a week ESTRADIOL 03993934892 Active Kateryna Villalpando LUVENA VAGINAL MOISTURIZER GEL use in vagina every third day VAGINAL MOISTURIZER 18412640688 Active Tainarussell Germain PREDNISONE 10 MG TAB 1/2 PO daily PREDNISONE 51835605032 No Longer Active Taina Valentine Germain XANAX 0.25 MG TABS 1 PO Q6hrs prn ALPRAZOLAM 09449153942 No Longer Active Taina Valentine Germain CELEXA 20 MG TABS 1 PO daily CITALOPRAM HYDROBROMIDE 87163781159 No Longer Active Taina Germain CLOBETASOL PROPIONATE E 0.05 % CREA Apply to infected areas BID CLOBETASOL PROP EMOLLIENT BASE 14140079134 No Longer Active Taina Germain PREDNISONE 10 MG TAB 4 PO daily until further notice PREDNISONE 82538606456 No Longer Active Taina Germain RESTASIS EMUL 1 drop each eye BID CYCLOSPORINE EMUL 10339071998 No Longer Active Taina Germain NYSTATIN 502633 U/ML SUSP 5cc PO QID for 7 days NYSTATIN 91084825501 No Longer Active Taina Germain ZITHROMAX Z-STEPHON 250 MG TABS as directed AZITHROMYCIN 21338658177 Active Taina YOUNG'Martha NASAL SPRAY (DEXAMETHASONE, GENTAMICIN, SALINE) 2 puffs each nostril TID for [address] HOWELL NASAL SPRAY ( DEXAMETHASONE, GENTAMICIN, SALINE) No Longer Active Taina Germain ALBUTEROL SULFATE 0.083 % NEBU SOLN 1 treatment TID prn ALBUTEROL SULFATE 82497690060 Active Taina Germain VITAMINS PLUS TABS 1 PO daily VIT-FE FUMARATE-FA TABS Active Kateryna Villalpando SYNTHROID 200 MCG TABS 1 PO daily LEVOTHYROXINE SODIUM 65945134716 Active Kateryna Villalpando LANSOPRAZOLE 30 MG CPDR 1 PO daily LANSOPRAZOLE 72146714156 Active Kateryna Villalpando LOMOTIL 2.5-0.025 MG TABS 1 PO TID prn DIPHENOXYLATE-ATROPINE 52214138992 Active Kateryna Villalpando ZOFRAN ODT 8 MG TBDP 1 PO Q6hrs prn nausea ONDANSETRON 88851495270 Active Kateryna Villalpando Immunizations Vaccine Administration Date [...] (RBC) count 3.87 10*6/mm3 Office Visit: Dr Germain'martha Check Up: Established Patient Visit - Chemistry [...] % Encounters Code Encounter Date Provider Facility CPT-03178 Ofc Vst, Est Level IV 20:36:26 CDT Taina Valentine Jessa Reganner, DO, FACP CPT-54953 Ofc Vst, Est Level IV 17:04:55 CDT Taina Valentine Jessa Germain, DO, FACP CPT-82265 Ofc Vst, Est Level IV 16:22:19 [employer] Taina Valentine Jessa Germain, DO, FACP CPT-83865 Ofc Vst, Est Level IV 16:57:55 BEAD CUTTER Taina Germain, DO, FACP CPT-20633 Ofc Vst, Est Level III 20:30:19 CDT Taina Valentine Jessa Germain, DO, FACP CPT-55397 Ofc Vst, Est Level III 19:28:47 CDT Taina Valentine Jessa Germain, DO, FACP CPT-78311 Ofc Vst, Est Level IV 19:13:50 CDT Taina Valentine Jessa Germain, DO, FACP CPT-49212 Ofc Vst, Est Level IV 12:14:27 BEAD CUTTER Taina Germain, DO, FACP CPT-88113 Ofc Vst, Est Level III 21:19:07 CDT Taina Valentine Jessa Germain, DO, FACP CPT-77687 Ofc Vst, Est Level IV 13:12:49 CDT Taina Germain, DO, FACP CPT-65075 Ofc Vst, Est Level III 14:41:26 CDT Taina Germain, DO, FACP CPT-64209 Ofc Vst, Est Level IV 15:17:01 CDT Taina Valentinenat Germain, DO, FACP CPT-94524 Ofc Vst, Est Level III 16:02:16 CDT Taina Valentine Jessa Germain DO, FACP CPT-12636 Ofc Vst, Est Level V 21:51:11 CDT Taina Valentine Jessa Germain DO, FACP CPT-07864 Ofc Vst, Est Level IV 13:07:29 CDT Taina Valentine Jessa Germain DO, FACP CPT-39013 Ofc Vst, Est Level III 13:03:11 CDT Taina Valentine Jessa Germain DO, FACP CPT-08977 Ofc Vst, Est Level III 15:13:37 BEAD CUTTER Taina Moralese Jessa Germain DO, FACP Procedures Code Procedure Name Date Entry Date Standard Description CPT-52948 Preventive, Est, (40-64) 14:37:50 CDT CPT-81385 Preventive, Est, (40-64) 20:40:07 CDT
--- OUTSIDE RECORDS SUMMARY | 2018-10-13 09:18 | XMS REPORT | Clinical Summary ---
Author Author User, [employer] Taina Germain DO, FACP Address Unknown Phone [...] minutes before meals and QHS DICYCLOMINE HCL 56050288842 Active Taina Germain URSODIOL 300 MG CAPS 1 po BID URSODIOL 67601524640 Active Taina Germain SANDOSTATIN LAR DEPOT 10 MG KIT 1 injection monthly OCTREOTIDE ACETATE 50672730499 No Longer Active Taina Germain XANAX 0.25 MG TABS 1 PO Q6hrs prn ALPRAZOLAM 06492222251 Active Taina Germain VALTREX 1 GM TABS 1 PO daily VALACYCLOVIR HCL 83781887095 Active Taina Germain CELEXA 20 MG TABS 1 PO daily CITALOPRAM HYDROBROMIDE 43482040567 No Longer Active Taina Germain GLEEVEC 400 MG TABS 1/2 tab PO QD IMATINIB MESYLATE 14831248271 Active Taina Valentine Germain VALACYCLOVIR HCL 1 GM TABS 1 PO daily VALACYCLOVIR HCL 94294648881 No Longer Active Taina Valentine Germain XANAX 0.25 MG TABS 1 PO Q6hrs prn ALPRAZOLAM 38698376164 No Longer Active Taina Valentine Germain ANTIVERT 25 MG TABS 1 PO Qhrs prn MECLIZINE HCL 46219783336 No Longer Active Taina Valentine Germain PREDNISONE 10 MG TAB 1/2 po QOD PREDNISONE 85628391835 No Longer Active Taina Valentine Germain BACTRIM DS 800-160 MG TAB 1 PO on MWF TRIMETHOPRIM- SULFAMETHOXAZOLE 34309696373 No Longer Active Taina Valentine Germain LIPITOR 40 MG TAB 1 po daily ATORVASTATIN CALCIUM 88717711902 Active Kateryna Villalpando PREMARIN 0.625 MG/GM CREA 1 gm intravaginally HS ESTROGENS, CONJUGATED VAGINAL 79780899107 No Longer Active Taina Valentine Germain ESTRACE 0.1 MG/GM CREA Apply 1/2 gram vaginally twice a week ESTRADIOL 60600406788 Active Kateryna Villalpando LUVENA VAGINAL MOISTURIZER GEL use in vagina every third day VAGINAL MOISTURIZER 89636642870 Active Taina Valentine Germain PREDNISONE 10 MG TAB 1/2 PO daily PREDNISONE 43445644850 No Longer Active Taina Valentine Germain XANAX 0.25 MG TABS 1 PO Q6hrs prn ALPRAZOLAM 12444859472 No Longer Active Taina Valentine Germain CELEXA 20 MG TABS 1 PO daily CITALOPRAM HYDROBROMIDE 38766547270 No Longer Active Taina Valentine Germain CLOBETASOL PROPIONATE E 0.05 % CREA Apply to infected areas BID CLOBETASOL PROP EMOLLIENT BASE 47724708370 No Longer Active Taina Germain PREDNISONE 10 MG TAB 4 PO daily until further notice PREDNISONE 62823525321 No Longer Active Taina Germain RESTASIS EMUL 1 drop each eye BID CYCLOSPORINE EMUL 39780991785 No Longer Active Taina Germain NYSTATIN 311465 U/ML SUSP 5cc PO QID for 7 days NYSTATIN 46786315450 No Longer Active Taina Germain ZITHROMAX Z-STEPHON 250 MG TABS as directed AZITHROMYCIN 41377078476 Active Taina YOUNG'José Miguel NASAL SPRAY (DEXAMETHASONE, GENTAMICIN, SALINE) 2 puffs each nostril TID for [address] HOWELL NASAL SPRAY ( DEXAMETHASONE, GENTAMICIN, SALINE) No Longer Active Taina Germain ALBUTEROL SULFATE 0.083 % NEBU SOLN 1 treatment TID prn ALBUTEROL SULFATE 66120959920 Active Taina Germain VITAMINS PLUS TABS 1 PO daily VIT-FE FUMARATE-FA TABS 46289542589 Active Taina Germain SYNTHROID 200 MCG TABS 1 PO daily LEVOTHYROXINE SODIUM 21870816169 Active Kateryna Villalpando LANSOPRAZOLE 30 MG CPDR 1 PO daily LANSOPRAZOLE 01524108348 Active Kateryna Villalpando LOMOTIL 2.5-0.025 MG TABS 1 PO TID prn DIPHENOXYLATE-ATROPINE 92929208251 Active Kateryna Villalpando ZOFRAN ODT 8 MG TBDP 1 PO Q6hrs prn nausea ONDANSETRON 40510577459 Active Kateryna Villalpando Immunizations Vaccine Administration Date [...] % Encounters Code Encounter Date Provider Facility CPT-19845 Ofc Vst, Est Level IV 20:36:26 CDT Taina Valentine Germain, DO, FACP CPT-80758 Ofc Vst, Est Level IV 17:04:55 CDT Taina Germain, DO, FACP CPT-14664 Ofc Vst, Est Level IV 16:22:19 LEAD RECREATION ASSISTANT Taina Germain, DO, FACP CPT-94842 Ofc Vst, Est Level IV 16:57:55 LEAD RECREATION ASSISTANT Taina Germain, DO, FACP CPT-15065 Ofc Vst, Est Level III 20:30:19 CDT Taina Germain, DO, FACP CPT-97137 Ofc Vst, Est Level III 19:28:47 CDT Taina Germain, DO, FACP CPT-06038 Ofc Vst, Est Level IV 19:13:50 CDT Tainarussell Germain, DO, FACP CPT-11857 Ofc Vst, Est Level IV 12:14:27 LEAD RECREATION ASSISTANT Taina Germain, DO, FACP CPT-79108 Ofc Vst, Est Level III 21:19:07 CDT Tainarussell Germain, DO, FACP CPT-30789 Ofc Vst, Est Level IV 13:12:49 CDT Taina Valentine Reganner Taina José Miguel Jessa, DO, FACP CPT-66640 Ofc Vst, Est Level III 14:41:26 CDT Taina Valentine Reganner Taina José Miguel Jessa, DO, FACP CPT-96909 Ofc Vst, Est Level IV 15:17:01 CDT Taina Valentine Jessa Tainarussell Germain, DO, FACP CPT-12537 Ofc Vst, Est Level III 16:02:16 CDT Taina Valentine Jessa Taina José Miguel Jessa, DO, FACP CPT-65662 Ofc Vst, Est Level V 21:51:11 CDT Taina Valentine Reganner Taina José Miguel Jessa, DO, FACP CPT-58975 Ofc Vst, Est Level IV 13:07:29 CDT Tainarussell Grijalva Jessa Tainarussell Germain DO, FACP CPT-65587 Ofc Vst, Est Level III 13:03:11 CDT Tainarussell Reganner Tainarussell Germain, DO, FACP CPT-25977 Ofc Vst, Est Level III 15:13:37 LEAD RECREATION ASSISTANT Taina Grijalva Jessa Germain, DO, FACP Procedures Code Procedure Name Date Entry Date Standard Description CPT-01651 Preventive, Est, (40-64) 20:40:07 CDT
--- OUTSIDE RECORDS SUMMARY | 2018-10-13 09:18 | XMS REPORT | Clinical Summary ---
Author Author User, [employer] Taina Germain DO, FACP Address Unknown Phone [...] minutes before meals and QHS DICYCLOMINE HCL 37000818876 Active Taina Germain URSODIOL 300 MG CAPS 1 po BID URSODIOL 77423369145 Active Taina Germain SANDOSTATIN LAR DEPOT 10 MG KIT 1 injection monthly OCTREOTIDE ACETATE 54751728679 No Longer Active Taina Germain XANAX 0.25 MG TABS 1 PO Q6hrs prn ALPRAZOLAM 54113786635 Active Taina Germain VALTREX 1 GM TABS 1 PO daily VALACYCLOVIR HCL 76883264576 Active Taina Germain CELEXA 20 MG TABS 1 PO daily CITALOPRAM HYDROBROMIDE 41339894239 No Longer Active Taina Germain GLEEVEC 400 MG TABS 1/2 tab PO QD IMATINIB MESYLATE 80842155033 Active Taina Valentine Germain VALACYCLOVIR HCL 1 GM TABS 1 PO daily VALACYCLOVIR HCL 56143272366 No Longer Active Taina Valentine Germain XANAX 0.25 MG TABS 1 PO Q6hrs prn ALPRAZOLAM 33951143846 No Longer Active Taina Valentine Germain ANTIVERT 25 MG TABS 1 PO Qhrs prn MECLIZINE HCL 16488323644 No Longer Active Taina Valentine Germain PREDNISONE 10 MG TAB 1/2 po QOD PREDNISONE 70300911162 No Longer Active Taina Valentine Germain BACTRIM DS 800-160 MG TAB 1 PO on MWF TRIMETHOPRIM- SULFAMETHOXAZOLE 56014248831 No Longer Active Taina Valentine Germain LIPITOR 40 MG TAB 1 po daily ATORVASTATIN CALCIUM 32912632764 Active Kateryna Villalpando PREMARIN 0.625 MG/GM CREA 1 gm intravaginally HS ESTROGENS, CONJUGATED VAGINAL 57233879485 No Longer Active Taina Valentine Germain ESTRACE 0.1 MG/GM CREA Apply 1/2 gram vaginally twice a week ESTRADIOL 89100463454 Active Kateryna Villalpando LUVENA VAGINAL MOISTURIZER GEL use in vagina every third day VAGINAL MOISTURIZER 55509593333 Active Taina Valentine Germain PREDNISONE 10 MG TAB 1/2 PO daily PREDNISONE 64811372438 No Longer Active Taina Valentine Germain XANAX 0.25 MG TABS 1 PO Q6hrs prn ALPRAZOLAM 48205223708 No Longer Active Taina Valentine Germain CELEXA 20 MG TABS 1 PO daily CITALOPRAM HYDROBROMIDE 64119898266 No Longer Active Taina Valentine Germain CLOBETASOL PROPIONATE E 0.05 % CREA Apply to infected areas BID CLOBETASOL PROP EMOLLIENT BASE 58450067170 No Longer Active Taina Germain PREDNISONE 10 MG TAB 4 PO daily until further notice PREDNISONE 85097028676 No Longer Active Taina Germain RESTASIS EMUL 1 drop each eye BID CYCLOSPORINE EMUL 83380376581 No Longer Active Taina Germain NYSTATIN 965558 U/ML SUSP 5cc PO QID for 7 days NYSTATIN 59031472732 No Longer Active Taina Germain ZITHROMAX Z-STEPHON 250 MG TABS as directed AZITHROMYCIN 24897320120 Active Taina YOUNG'José Miguel NASAL SPRAY (DEXAMETHASONE, GENTAMICIN, SALINE) 2 puffs each nostril TID for [address] HOWELL NASAL SPRAY ( DEXAMETHASONE, GENTAMICIN, SALINE) No Longer Active Taina Germain ALBUTEROL SULFATE 0.083 % NEBU SOLN 1 treatment TID prn ALBUTEROL SULFATE 04449568548 Active Taina Germain VITAMINS PLUS TABS 1 PO daily VIT-FE FUMARATE-FA TABS 36274941917 Active aTina Germain SYNTHROID 200 MCG TABS 1 PO daily LEVOTHYROXINE SODIUM 55098572057 Active Kateryna Villalpando LANSOPRAZOLE 30 MG CPDR 1 PO daily LANSOPRAZOLE 07465361364 Active Kateryna Villalpando LOMOTIL 2.5-0.025 MG TABS 1 PO TID prn DIPHENOXYLATE-ATROPINE 64641081984 Active Kateryna Villalpando ZOFRAN ODT 8 MG TBDP 1 PO Q6hrs prn nausea ONDANSETRON 15528946995 Active Kateryna Villalpando Immunizations Vaccine Administration Date [...] % Encounters Code Encounter Date Provider Facility CPT-42413 Ofc Vst, Est Level IV 20:36:26 CDT Taina Valentine Germain, DO, FACP CPT-15617 Ofc Vst, Est Level IV 17:04:55 CDT Taina Germain, DO, FACP CPT-84943 Ofc Vst, Est Level IV 16:22:19 HOTEL BREAKFAST ATTENDANT Taina Germain, DO, FACP CPT-26011 Ofc Vst, Est Level IV 16:57:55 HOTEL BREAKFAST ATTENDANT Taina Germain, DO, FACP CPT-75793 Ofc Vst, Est Level III 20:30:19 CDT Taina Germain, DO, FACP CPT-06775 Ofc Vst, Est Level III 19:28:47 CDT Taina Germain, DO, FACP CPT-49451 Ofc Vst, Est Level IV 19:13:50 CDT Tainarussell Germain, DO, FACP CPT-81673 Ofc Vst, Est Level IV 12:14:27 HOTEL BREAKFAST ATTENDANT Taina Germain, DO, FACP CPT-03545 Ofc Vst, Est Level III 21:19:07 CDT Tainarussell Germain, DO, FACP CPT-29486 Ofc Vst, Est Level IV 13:12:49 CDT Taina Valentine Reganner Taina José Miguel Jessa, DO, FACP CPT-02778 Ofc Vst, Est Level III 14:41:26 CDT Taina Valentine Reganner Taina José Miguel Jessa, DO, FACP CPT-51737 Ofc Vst, Est Level IV 15:17:01 CDT Taina Valentine Jessa Tainarussell Germain, DO, FACP CPT-98491 Ofc Vst, Est Level III 16:02:16 CDT Taina Valentine Jessa Taina José Miguel Jessa, DO, FACP CPT-60249 Ofc Vst, Est Level V 21:51:11 CDT Taina Valentine Reganner Taina José Miguel Jessa, DO, FACP CPT-66174 Ofc Vst, Est Level IV 13:07:29 CDT Tainarussell Grijalva Jessa Tainarussell Germain DO, FACP CPT-91238 Ofc Vst, Est Level III 13:03:11 CDT Tainarussell Reganner Tainarussell Germain, DO, FACP CPT-62776 Ofc Vst, Est Level III 15:13:37 HOTEL BREAKFAST ATTENDANT Taina Grijalva Jessa Germain, DO, FACP Procedures Code Procedure Name Date Entry Date Standard Description CPT-26172 Preventive, Est, (40-64) 20:40:07 CDT
--- OUTSIDE RECORDS SUMMARY | 2018-10-13 09:19 | XMS REPORT | Clinical Summary ---
Author Author User, [employer] Taina Germain DO, FACP Address Unknown Phone [...] minutes before meals and QHS DICYCLOMINE HCL 33809734586 Active Taina Germain URSODIOL 300 MG CAPS 1 po BID URSODIOL 53534322486 Active Taina Germain SANDOSTATIN LAR DEPOT 10 MG KIT 1 injection monthly OCTREOTIDE ACETATE 55770783651 No Longer Active Taina Germain XANAX 0.25 MG TABS 1 PO Q6hrs prn ALPRAZOLAM 43764820281 Active Taina Germain VALTREX 1 GM TABS 1 PO daily VALACYCLOVIR HCL 72733407180 Active Taina Germain CELEXA 20 MG TABS 1 PO daily CITALOPRAM HYDROBROMIDE 94435985831 No Longer Active Taina Germain GLEEVEC 400 MG TABS 1/2 tab PO QD IMATINIB MESYLATE 32322740741 Active Taina Valentine Germain VALACYCLOVIR HCL 1 GM TABS 1 PO daily VALACYCLOVIR HCL 46807278489 No Longer Active Taina Valentine Germain XANAX 0.25 MG TABS 1 PO Q6hrs prn ALPRAZOLAM 13320528194 No Longer Active Taina Valentine Germain ANTIVERT 25 MG TABS 1 PO Qhrs prn MECLIZINE HCL 02645558527 No Longer Active Taina Valentine Germain PREDNISONE 10 MG TAB 1/2 po QOD PREDNISONE 64083683168 No Longer Active Taina Valentine Germain BACTRIM DS 800-160 MG TAB 1 PO on MWF TRIMETHOPRIM- SULFAMETHOXAZOLE 75410716365 No Longer Active Taina Valentine Germain LIPITOR 40 MG TAB 1 po daily ATORVASTATIN CALCIUM 55473060006 Active Kateryna Villalpando PREMARIN 0.625 MG/GM CREA 1 gm intravaginally HS ESTROGENS, CONJUGATED VAGINAL 23099064697 No Longer Active Taina Valentine Germain ESTRACE 0.1 MG/GM CREA Apply 1/2 gram vaginally twice a week ESTRADIOL 78298774990 Active Kateryna Villalpando LUVENA VAGINAL MOISTURIZER GEL use in vagina every third day VAGINAL MOISTURIZER 79725970118 Active Taina Valentine Germain PREDNISONE 10 MG TAB 1/2 PO daily PREDNISONE 34102673833 No Longer Active Taina Valentine Germain XANAX 0.25 MG TABS 1 PO Q6hrs prn ALPRAZOLAM 47857707210 No Longer Active Taina Valentine Germain CELEXA 20 MG TABS 1 PO daily CITALOPRAM HYDROBROMIDE 61719656897 No Longer Active Taina Valentine Germain CLOBETASOL PROPIONATE E 0.05 % CREA Apply to infected areas BID CLOBETASOL PROP EMOLLIENT BASE 11132491611 No Longer Active Taina Germain PREDNISONE 10 MG TAB 4 PO daily until further notice PREDNISONE 51013421341 No Longer Active Taina Germain RESTASIS EMUL 1 drop each eye BID CYCLOSPORINE EMUL 21312621428 No Longer Active Taina Germain NYSTATIN 797389 U/ML SUSP 5cc PO QID for 7 days NYSTATIN 63809340489 No Longer Active Taina Germain ZITHROMAX Z-STEPHON 250 MG TABS as directed AZITHROMYCIN 59194834602 Active Taina YOUNG'José Miguel NASAL SPRAY (DEXAMETHASONE, GENTAMICIN, SALINE) 2 puffs each nostril TID for [address] HOWELL NASAL SPRAY ( DEXAMETHASONE, GENTAMICIN, SALINE) No Longer Active Taina Germain ALBUTEROL SULFATE 0.083 % NEBU SOLN 1 treatment TID prn ALBUTEROL SULFATE 78670010130 Active Taina Germain VITAMINS PLUS TABS 1 PO daily VIT-FE FUMARATE-FA TABS 50626025269 Active Taina Germain SYNTHROID 200 MCG TABS 1 PO daily LEVOTHYROXINE SODIUM 53824835974 Active Kateryna Villalpando LANSOPRAZOLE 30 MG CPDR 1 PO daily LANSOPRAZOLE 91254800310 Active Kateryna Villalpando LOMOTIL 2.5-0.025 MG TABS 1 PO TID prn DIPHENOXYLATE-ATROPINE 87217207166 Active Kateryna Villalpando ZOFRAN ODT 8 MG TBDP 1 PO Q6hrs prn nausea ONDANSETRON 44381101235 Active Kateryna Villalpando Immunizations Vaccine Administration Date [...] % Encounters Code Encounter Date Provider Facility CPT-57153 Ofc Vst, Est Level IV 20:36:26 CDT Taina Valentine Germain, DO, FACP CPT-92220 Ofc Vst, Est Level IV 17:04:55 CDT Taina Germain, DO, FACP CPT-38322 Ofc Vst, Est Level IV 16:22:19 CAMPAIGN MANAGEMENT SENIOR MANAGER Taina Germain, DO, FACP CPT-28968 Ofc Vst, Est Level IV 16:57:55 CAMPAIGN MANAGEMENT SENIOR MANAGER Taina Germain, DO, FACP CPT-39013 Ofc Vst, Est Level III 20:30:19 CDT Taina Germain, DO, FACP CPT-60021 Ofc Vst, Est Level III 19:28:47 CDT Taina Germain, DO, FACP CPT-78505 Ofc Vst, Est Level IV 19:13:50 CDT Tainarussell Germain, DO, FACP CPT-12909 Ofc Vst, Est Level IV 12:14:27 CAMPAIGN MANAGEMENT SENIOR MANAGER Taina Germain, DO, FACP CPT-17953 Ofc Vst, Est Level III 21:19:07 CDT Tainarussell Germain, DO, FACP CPT-23676 Ofc Vst, Est Level IV 13:12:49 CDT Taina Valentine Reganner Taina José Miguel Jessa, DO, FACP CPT-83609 Ofc Vst, Est Level III 14:41:26 CDT Taina Valentine Reganner Taina José Miguel Jessa, DO, FACP CPT-05117 Ofc Vst, Est Level IV 15:17:01 CDT Taina Valentine Jessa Tainarussell Germain, DO, FACP CPT-21415 Ofc Vst, Est Level III 16:02:16 CDT Taina Valentine Jessa Taina José Miguel Jessa, DO, FACP CPT-16029 Ofc Vst, Est Level V 21:51:11 CDT Taina Valentine Reganner Taina José Miguel Jessa, DO, FACP CPT-89519 Ofc Vst, Est Level IV 13:07:29 CDT Tainarussell Grijalva Jessa Tainarussell Germain DO, FACP CPT-44521 Ofc Vst, Est Level III 13:03:11 CDT Tainarussell Reganner Tainarussell Germain, DO, FACP CPT-81528 Ofc Vst, Est Level III 15:13:37 CAMPAIGN MANAGEMENT SENIOR MANAGER Taina Grijalva Jessa Germain, DO, FACP Procedures Code Procedure Name Date Entry Date Standard Description CPT-03679 Preventive, Est, (40-64) 20:40:07 CDT
--- OUTSIDE RECORDS SUMMARY | 2018-10-13 09:19 | XMS REPORT | Clinical Summary ---
Author Author User, [employer] Taina Germain DO, FACP Address Unknown Phone [...] minutes before meals and QHS DICYCLOMINE HCL 77003947810 Active Taina Germain URSODIOL 300 MG CAPS 1 po BID URSODIOL 22910112924 Active Taina Germain SANDOSTATIN LAR DEPOT 10 MG KIT 1 injection monthly OCTREOTIDE ACETATE 56167588567 No Longer Active Taina Germain XANAX 0.25 MG TABS 1 PO Q6hrs prn ALPRAZOLAM 72153857036 Active Taina Germain VALTREX 1 GM TABS 1 PO daily VALACYCLOVIR HCL 47017727581 Active Taina Germain CELEXA 20 MG TABS 1 PO daily CITALOPRAM HYDROBROMIDE 14261753510 No Longer Active Taina Germain GLEEVEC 400 MG TABS 1/2 tab PO QD IMATINIB MESYLATE 59033368913 Active Taina Valentine Germain VALACYCLOVIR HCL 1 GM TABS 1 PO daily VALACYCLOVIR HCL 44625044103 No Longer Active Taina Valentine Germain XANAX 0.25 MG TABS 1 PO Q6hrs prn ALPRAZOLAM 33916645767 No Longer Active Taina Valentine Germain ANTIVERT 25 MG TABS 1 PO Qhrs prn MECLIZINE HCL 02490676492 No Longer Active Taina Valentine Germain PREDNISONE 10 MG TAB 1/2 po QOD PREDNISONE 89269380200 No Longer Active Taina Valentine Germain BACTRIM DS 800-160 MG TAB 1 PO on MWF TRIMETHOPRIM- SULFAMETHOXAZOLE 12723212216 No Longer Active Taina Valentine Germain LIPITOR 40 MG TAB 1 po daily ATORVASTATIN CALCIUM 43108478229 Active Kateryna Villalpando PREMARIN 0.625 MG/GM CREA 1 gm intravaginally HS ESTROGENS, CONJUGATED VAGINAL 67643687449 No Longer Active Taina Valentine Germain ESTRACE 0.1 MG/GM CREA Apply 1/2 gram vaginally twice a week ESTRADIOL 20008215240 Active Kateryna Villalpando LUVENA VAGINAL MOISTURIZER GEL use in vagina every third day VAGINAL MOISTURIZER 76320225152 Active Taina Valentine Germain PREDNISONE 10 MG TAB 1/2 PO daily PREDNISONE 95426327981 No Longer Active Taina Valentine Germain XANAX 0.25 MG TABS 1 PO Q6hrs prn ALPRAZOLAM 80156797764 No Longer Active Taina Valentine Germain CELEXA 20 MG TABS 1 PO daily CITALOPRAM HYDROBROMIDE 88387902252 No Longer Active Taina Valentine Germain CLOBETASOL PROPIONATE E 0.05 % CREA Apply to infected areas BID CLOBETASOL PROP EMOLLIENT BASE 44836410555 No Longer Active Taina Germain PREDNISONE 10 MG TAB 4 PO daily until further notice PREDNISONE 39050100546 No Longer Active Taina Germain RESTASIS EMUL 1 drop each eye BID CYCLOSPORINE EMUL 34360031317 No Longer Active Taina Germain NYSTATIN 247383 U/ML SUSP 5cc PO QID for 7 days NYSTATIN 65749984783 No Longer Active Taina Germain ZITHROMAX Z-STEPHON 250 MG TABS as directed AZITHROMYCIN 26650999100 Active Tiana YOUNG'José Miguel NASAL SPRAY (DEXAMETHASONE, GENTAMICIN, SALINE) 2 puffs each nostril TID for [address] HOWELL NASAL SPRAY ( DEXAMETHASONE, GENTAMICIN, SALINE) No Longer Active Taina Germain ALBUTEROL SULFATE 0.083 % NEBU SOLN 1 treatment TID prn ALBUTEROL SULFATE 94538587559 Active Taina Germain VITAMINS PLUS TABS 1 PO daily VIT-FE FUMARATE-FA TABS 49575291533 Active Taina Germain SYNTHROID 200 MCG TABS 1 PO daily LEVOTHYROXINE SODIUM 08442732232 Active Kateryna Villalpando LANSOPRAZOLE 30 MG CPDR 1 PO daily LANSOPRAZOLE 39371072615 Active Kateryna Villalpando LOMOTIL 2.5-0.025 MG TABS 1 PO TID prn DIPHENOXYLATE-ATROPINE 50443656367 Active Kateryna Villalpando ZOFRAN ODT 8 MG TBDP 1 PO Q6hrs prn nausea ONDANSETRON 78213151519 Active Kateryna Villalpando Immunizations Vaccine Administration Date [...] % Encounters Code Encounter Date Provider Facility CPT-60861 Ofc Vst, Est Level IV 20:36:26 CDT Taina Valentine Germain, DO, FACP CPT-06536 Ofc Vst, Est Level IV 17:04:55 CDT Taina Germain, DO, FACP CPT-52312 Ofc Vst, Est Level IV 16:22:19 EQUIPMENT MECHANIC SPECIALIST Taina Germain, DO, FACP CPT-88051 Ofc Vst, Est Level IV 16:57:55 EQUIPMENT MECHANIC SPECIALIST Taina Germain, DO, FACP CPT-22852 Ofc Vst, Est Level III 20:30:19 CDT Taina Germain, DO, FACP CPT-56614 Ofc Vst, Est Level III 19:28:47 CDT Taina Germain, DO, FACP CPT-85474 Ofc Vst, Est Level IV 19:13:50 CDT Tainarussell Germain, DO, FACP CPT-98433 Ofc Vst, Est Level IV 12:14:27 EQUIPMENT MECHANIC SPECIALIST Taina Germain, DO, FACP CPT-62295 Ofc Vst, Est Level III 21:19:07 CDT Tainarussell Germain, DO, FACP CPT-65375 Ofc Vst, Est Level IV 13:12:49 CDT Taina Valentine Reganner Taina Valdez Jessa, DO, FACP CPT-07749 Ofc Vst, Est Level III 14:41:26 CDT Taina Valentine Reganner Taina Valdez Jessa, DO, FACP CPT-74387 Ofc Vst, Est Level IV 15:17:01 CDT Taina Valentine Jessa Tainarussell Germain, DO, FACP CPT-65492 Ofc Vst, Est Level III 16:02:16 CDT Taina Valentine Reganner Taina José Miguel Jessa, DO, FACP CPT-60124 Ofc Vst, Est Level V 21:51:11 CDT Taina Valentine Reganner Taina Valdez Jessa, DO, FACP CPT-20720 Ofc Vst, Est Level IV 13:07:29 CDT Tainarussell Grijalva Germain Tainarusesll Germain, DO, FACP CPT-72585 Ofc Vst, Est Level III 13:03:11 CDT Tainarussell Reganner Taina José Miguel Jessa, DO, FACP CPT-10978 Ofc Vst, Est Level III 15:13:37 EQUIPMENT MECHANIC SPECIALIST Taina Grijalva Jessa Germain, DO, FACP Procedures Code Procedure Name Date Entry Date Standard Description CPT-28603 Preventive, Est, (40-64) 20:40:07 CDT
--- OUTSIDE RECORDS SUMMARY | 2018-10-13 09:20 | XMS REPORT | Clinical Summary ---
Author Author User, [email or web address] Taina Germain DO, FACP Address Unknown Phone [...] minutes before meals and QHS DICYCLOMINE HCL 44074366955 Active Taina Germain URSODIOL 300 MG CAPS 1 po BID URSODIOL 25003306731 Active Taina Germain SANDOSTATIN LAR DEPOT 10 MG KIT 1 injection monthly OCTREOTIDE ACETATE 67903652716 No Longer Active Taina Germain XANAX 0.25 MG TABS 1 PO Q6hrs prn ALPRAZOLAM 02109148454 Active Taina Germain VALTREX 1 GM TABS 1 PO daily VALACYCLOVIR HCL 15308659870 Active Taina Germain CELEXA 20 MG TABS 1 PO daily CITALOPRAM HYDROBROMIDE 32457874570 No Longer Active Taina Germain GLEEVEC 400 MG TABS 1/2 tab PO QD IMATINIB MESYLATE 45639946753 Active Taina Valentine Germain VALACYCLOVIR HCL 1 GM TABS 1 PO daily VALACYCLOVIR HCL 57036043603 No Longer Active Taina Valentine Germain XANAX 0.25 MG TABS 1 PO Q6hrs prn ALPRAZOLAM 04726825897 No Longer Active Taina Valentine Germain ANTIVERT 25 MG TABS 1 PO Qhrs prn MECLIZINE HCL 07854486815 No Longer Active Taina Valentine Germain PREDNISONE 10 MG TAB 1/2 po QOD PREDNISONE 56103477930 No Longer Active Taina Valentine Germain BACTRIM DS 800-160 MG TAB 1 PO on MWF TRIMETHOPRIM- SULFAMETHOXAZOLE 55073691771 No Longer Active Taina Valentine Germain LIPITOR 40 MG TAB 1 po daily ATORVASTATIN CALCIUM 44490326952 Active Kateryna Villalpando PREMARIN 0.625 MG/GM CREA 1 gm intravaginally HS ESTROGENS, CONJUGATED VAGINAL 49134006630 No Longer Active Taina Valentine Germain ESTRACE 0.1 MG/GM CREA Apply 1/2 gram vaginally twice a week ESTRADIOL 55966349300 Active Kateryna Villalpando LUVENA VAGINAL MOISTURIZER GEL use in vagina every third day VAGINAL MOISTURIZER 53276621160 Active Taina Valentine Germain PREDNISONE 10 MG TAB 1/2 PO daily PREDNISONE 02127261144 No Longer Active Taina Valentine Germain XANAX 0.25 MG TABS 1 PO Q6hrs prn ALPRAZOLAM 29081101362 No Longer Active Taina Valentine eGrmain CELEXA 20 MG TABS 1 PO daily CITALOPRAM HYDROBROMIDE 64658807143 No Longer Active Taina Valentine Germain CLOBETASOL PROPIONATE E 0.05 % CREA Apply to infected areas BID CLOBETASOL PROP EMOLLIENT BASE 38370099057 No Longer Active Taina Germain PREDNISONE 10 MG TAB 4 PO daily until further notice PREDNISONE 99056394442 No Longer Active Taina Germain RESTASIS EMUL 1 drop each eye BID CYCLOSPORINE EMUL 09921274356 No Longer Active Taina Germain NYSTATIN 276790 U/ML SUSP 5cc PO QID for 7 days NYSTATIN 91223910465 No Longer Active Taina Germain ZITHROMAX Z-STEPHON 250 MG TABS as directed AZITHROMYCIN 80925073832 Active Taina YOUNG'José Miguel NASAL SPRAY (DEXAMETHASONE, GENTAMICIN, SALINE) 2 puffs each nostril TID for [address] HOWELL NASAL SPRAY ( DEXAMETHASONE, GENTAMICIN, SALINE) No Longer Active Taina Germain ALBUTEROL SULFATE 0.083 % NEBU SOLN 1 treatment TID prn ALBUTEROL SULFATE 12397290055 Active Taina Germain VITAMINS PLUS TABS 1 PO daily VIT-FE FUMARATE-FA TABS 73373967641 Active Taina Germain SYNTHROID 200 MCG TABS 1 PO daily LEVOTHYROXINE SODIUM 57276909601 Active Kateryna Villalpando LANSOPRAZOLE 30 MG CPDR 1 PO daily LANSOPRAZOLE 54802339332 Active Kateryna Villalpando LOMOTIL 2.5-0.025 MG TABS 1 PO TID prn DIPHENOXYLATE-ATROPINE 31347930880 Active Kateryna Villalpando ZOFRAN ODT 8 MG TBDP 1 PO Q6hrs prn nausea ONDANSETRON 34540001942 Active Kateryna Villalpando Immunizations Vaccine Administration Date [...] % Encounters Code Encounter Date Provider Facility CPT-05928 Ofc Vst, Est Level IV 20:36:26 CDT Taina Valentine Germain, DO, FACP CPT-58561 Ofc Vst, Est Level IV 17:04:55 CDT Taina Germain, DO, FACP CPT-16118 Ofc Vst, Est Level IV 16:22:19 FLOOR COVERING LAYER Taina Germain, DO, FACP CPT-31365 Ofc Vst, Est Level IV 16:57:55 FLOOR COVERING LAYER Taina Germain, DO, FACP CPT-11757 Ofc Vst, Est Level III 20:30:19 CDT Taina Germain, DO, FACP CPT-04870 Ofc Vst, Est Level III 19:28:47 CDT Taina Germain, DO, FACP CPT-63147 Ofc Vst, Est Level IV 19:13:50 CDT Tainarussell Germain, DO, FACP CPT-74283 Ofc Vst, Est Level IV 12:14:27 FLOOR COVERING LAYER Taina Germain, DO, FACP CPT-78076 Ofc Vst, Est Level III 21:19:07 CDT Tainarussell Germain, DO, FACP CPT-14417 Ofc Vst, Est Level IV 13:12:49 CDT Taina Valentine Reganner Taina José Miguel Jessa, DO, FACP CPT-69565 Ofc Vst, Est Level III 14:41:26 CDT Taina Valentine Reganner Taina José Miguel Jessa, DO, FACP CPT-45974 Ofc Vst, Est Level IV 15:17:01 CDT Taina Valentine Jessa Tainarussell Germain, DO, FACP CPT-30178 Ofc Vst, Est Level III 16:02:16 CDT Taina Valentine Jessa Taina José Miguel Jessa, DO, FACP CPT-79385 Ofc Vst, Est Level V 21:51:11 CDT Taina Valentine Reganner Taina José Miguel Jessa, DO, FACP CPT-65422 Ofc Vst, Est Level IV 13:07:29 CDT Tainarussell Grijalva Jessa Tainarussell Germain DO, FACP CPT-12943 Ofc Vst, Est Level III 13:03:11 CDT Tainarussell Reganner Tainarussell Germain, DO, FACP CPT-55046 Ofc Vst, Est Level III 15:13:37 FLOOR COVERING LAYER Taina Grijalva Jessa Germain, DO, FACP Procedures Code Procedure Name Date Entry Date Standard Description CPT-60682 Preventive, Est, (40-64) 20:40:07 CDT
--- OUTSIDE RECORDS SUMMARY | 2018-10-13 09:21 | XMS REPORT | Clinical Summary ---
Author Author User, [employer] Taina Germain DO, FACP Address Unknown Phone [...] minutes before meals and QHS DICYCLOMINE HCL 17327672012 Active Taina Germain URSODIOL 300 MG CAPS 1 po BID URSODIOL 73154324132 Active Taina Germain SANDOSTATIN LAR DEPOT 10 MG KIT 1 injection monthly OCTREOTIDE ACETATE 31637936404 No Longer Active Taina Germain XANAX 0.25 MG TABS 1 PO Q6hrs prn ALPRAZOLAM 34448473066 Active Taina Germain VALTREX 1 GM TABS 1 PO daily VALACYCLOVIR HCL 08918365920 Active Taina Germain CELEXA 20 MG TABS 1 PO daily CITALOPRAM HYDROBROMIDE 51044951125 No Longer Active Taina Germain GLEEVEC 400 MG TABS 1/2 tab PO QD IMATINIB MESYLATE 40600557649 Active Taina Valentine Germain VALACYCLOVIR HCL 1 GM TABS 1 PO daily VALACYCLOVIR HCL 97731583406 No Longer Active Taina Valentine Germain XANAX 0.25 MG TABS 1 PO Q6hrs prn ALPRAZOLAM 94046374307 No Longer Active Taina Valentine Germain ANTIVERT 25 MG TABS 1 PO Qhrs prn MECLIZINE HCL 24386997727 No Longer Active Taina Valentine Germain PREDNISONE 10 MG TAB 1/2 po QOD PREDNISONE 31694939858 No Longer Active Taina Valentine Germain BACTRIM DS 800-160 MG TAB 1 PO on MWF TRIMETHOPRIM- SULFAMETHOXAZOLE 13229110305 No Longer Active Taina Valentine Germain LIPITOR 40 MG TAB 1 po daily ATORVASTATIN CALCIUM 36530467765 Active Kateryna Villalpando PREMARIN 0.625 MG/GM CREA 1 gm intravaginally HS ESTROGENS, CONJUGATED VAGINAL 27104997153 No Longer Active Taina Valentine Germain ESTRACE 0.1 MG/GM CREA Apply 1/2 gram vaginally twice a week ESTRADIOL 09766673788 Active Kateryna Villalpando LUVENA VAGINAL MOISTURIZER GEL use in vagina every third day VAGINAL MOISTURIZER 87701008766 Active Taina Valentine Germain PREDNISONE 10 MG TAB 1/2 PO daily PREDNISONE 31322554365 No Longer Active Taina Valentien Germain XANAX 0.25 MG TABS 1 PO Q6hrs prn ALPRAZOLAM 61228278858 No Longer Active Taina Valentine Germain CELEXA 20 MG TABS 1 PO daily CITALOPRAM HYDROBROMIDE 46128253359 No Longer Active Taina Valentine Germain CLOBETASOL PROPIONATE E 0.05 % CREA Apply to infected areas BID CLOBETASOL PROP EMOLLIENT BASE 12427796541 No Longer Active Taina Germain PREDNISONE 10 MG TAB 4 PO daily until further notice PREDNISONE 31830267347 No Longer Active Taina Germain RESTASIS EMUL 1 drop each eye BID CYCLOSPORINE EMUL 34968395034 No Longer Active Taina Germain NYSTATIN 454078 U/ML SUSP 5cc PO QID for 7 days NYSTATIN 19527473689 No Longer Active Taina Germain ZITHROMAX Z-STEPHON 250 MG TABS as directed AZITHROMYCIN 96130040167 Active Taina YOUNG'José Miguel NASAL SPRAY (DEXAMETHASONE, GENTAMICIN, SALINE) 2 puffs each nostril TID for [address] HOWELL NASAL SPRAY ( DEXAMETHASONE, GENTAMICIN, SALINE) No Longer Active Taina Germain ALBUTEROL SULFATE 0.083 % NEBU SOLN 1 treatment TID prn ALBUTEROL SULFATE 98720767085 Active Taina Germain VITAMINS PLUS TABS 1 PO daily VIT-FE FUMARATE-FA TABS 22828886279 Active Taina Germain SYNTHROID 200 MCG TABS 1 PO daily LEVOTHYROXINE SODIUM 50915702972 Active Kateryna Villalpando LANSOPRAZOLE 30 MG CPDR 1 PO daily LANSOPRAZOLE 86206922048 Active Kateryna Villalpando LOMOTIL 2.5-0.025 MG TABS 1 PO TID prn DIPHENOXYLATE-ATROPINE 60095455981 Active Kateryna Villalpando ZOFRAN ODT 8 MG TBDP 1 PO Q6hrs prn nausea ONDANSETRON 08617758660 Active Kateryna Villalpando Immunizations Vaccine Administration Date [...] % Encounters Code Encounter Date Provider Facility CPT-75008 Ofc Vst, Est Level IV 20:36:26 CDT Taina Valentine Germain, DO, FACP CPT-65798 Ofc Vst, Est Level IV 17:04:55 CDT Taina Germain, DO, FACP CPT-66465 Ofc Vst, Est Level IV 16:22:19 DRY MOLDER Taina Germain, DO, FACP CPT-07335 Ofc Vst, Est Level IV 16:57:55 DRY MOLDER Taina Germain, DO, FACP CPT-26151 Ofc Vst, Est Level III 20:30:19 CDT Taina Germain, DO, FACP CPT-22996 Ofc Vst, Est Level III 19:28:47 CDT Taina Germain, DO, FACP CPT-40814 Ofc Vst, Est Level IV 19:13:50 CDT Tainarussell Germain, DO, FACP CPT-98819 Ofc Vst, Est Level IV 12:14:27 DRY MOLDER Taina Germain, DO, FACP CPT-41457 Ofc Vst, Est Level III 21:19:07 CDT Tainarussell Germain, DO, FACP CPT-51412 Ofc Vst, Est Level IV 13:12:49 CDT Taina Valentine Reganner Taina José Miguel Jessa, DO, FACP CPT-80324 Ofc Vst, Est Level III 14:41:26 CDT Taina Valentine Reganner Taina José Miguel Jessa, DO, FACP CPT-18435 Ofc Vst, Est Level IV 15:17:01 CDT Taina Valentine Jessa Tainarussell Germain, DO, FACP CPT-21942 Ofc Vst, Est Level III 16:02:16 CDT Taina Valentine Jessa Taina José Miguel Jessa, DO, FACP CPT-64413 Ofc Vst, Est Level V 21:51:11 CDT Taina Valentine Reganner Taina José Miguel Jessa, DO, FACP CPT-43694 Ofc Vst, Est Level IV 13:07:29 CDT Tainarussell Grijalva Jessa Tainarussell Germain DO, FACP CPT-99917 Ofc Vst, Est Level III 13:03:11 CDT Tainarussell Reganner Tainarussell Germain, DO, FACP CPT-94313 Ofc Vst, Est Level III 15:13:37 DRY MOLDER Taina Grijalva Jessa Germain, DO, FACP Procedures Code Procedure Name Date Entry Date Standard Description CPT-60315 Preventive, Est, (40-64) 20:40:07 CDT
--- OUTSIDE RECORDS SUMMARY | 2018-10-13 09:23 | XMS REPORT | Clinical Summary ---
Author Author User, [employer] Taina Germain DO, FACP Address Unknown Phone [...] minutes before meals and QHS DICYCLOMINE HCL 88743130195 Active Taina Germain URSODIOL 300 MG CAPS 1 po BID URSODIOL 30193318926 Active Taina Germain SANDOSTATIN LAR DEPOT 10 MG KIT 1 injection monthly OCTREOTIDE ACETATE 06381199731 No Longer Active Taina Germain XANAX 0.25 MG TABS 1 PO Q6hrs prn ALPRAZOLAM 46562488205 Active Taina Germain VALTREX 1 GM TABS 1 PO daily VALACYCLOVIR HCL 02672567525 Active Taina Germain CELEXA 20 MG TABS 1 PO daily CITALOPRAM HYDROBROMIDE 82050998513 No Longer Active Taina Germain GLEEVEC 400 MG TABS 1/2 tab PO QD IMATINIB MESYLATE 58802926459 Active Taina Valentine Germain VALACYCLOVIR HCL 1 GM TABS 1 PO daily VALACYCLOVIR HCL 94963050244 No Longer Active Taina Valentine Germain XANAX 0.25 MG TABS 1 PO Q6hrs prn ALPRAZOLAM 78815610276 No Longer Active Taina Valentine Germain ANTIVERT 25 MG TABS 1 PO Qhrs prn MECLIZINE HCL 93825947104 No Longer Active Taina Valentine Germain PREDNISONE 10 MG TAB 1/2 po QOD PREDNISONE 18314067120 No Longer Active Taina Valentine Germain BACTRIM DS 800-160 MG TAB 1 PO on MWF TRIMETHOPRIM- SULFAMETHOXAZOLE 67726645362 No Longer Active Taina Valentine Germain LIPITOR 40 MG TAB 1 po daily ATORVASTATIN CALCIUM 79695764870 Active Kateryna Villalpando PREMARIN 0.625 MG/GM CREA 1 gm intravaginally HS ESTROGENS, CONJUGATED VAGINAL 38447492087 No Longer Active Taina Valentine Germain ESTRACE 0.1 MG/GM CREA Apply 1/2 gram vaginally twice a week ESTRADIOL 86724825995 Active Kateryna Villalpando LUVENA VAGINAL MOISTURIZER GEL use in vagina every third day VAGINAL MOISTURIZER 07579288319 Active Taina Valentine Germain PREDNISONE 10 MG TAB 1/2 PO daily PREDNISONE 31788556352 No Longer Active Taina Valentine Germain XANAX 0.25 MG TABS 1 PO Q6hrs prn ALPRAZOLAM 25304298635 No Longer Active Taina Valentine Germain CELEXA 20 MG TABS 1 PO daily CITALOPRAM HYDROBROMIDE 40985832578 No Longer Active Taina Valentine Germain CLOBETASOL PROPIONATE E 0.05 % CREA Apply to infected areas BID CLOBETASOL PROP EMOLLIENT BASE 95718971643 No Longer Active Taina Germain PREDNISONE 10 MG TAB 4 PO daily until further notice PREDNISONE 14366692886 No Longer Active Taina Germain RESTASIS EMUL 1 drop each eye BID CYCLOSPORINE EMUL 25680289338 No Longer Active Taina Germain NYSTATIN 837201 U/ML SUSP 5cc PO QID for 7 days NYSTATIN 37700034942 No Longer Active Taina Germain ZITHROMAX Z-STEPHON 250 MG TABS as directed AZITHROMYCIN 25901386609 Active Taina YOUNG'José Miguel NASAL SPRAY (DEXAMETHASONE, GENTAMICIN, SALINE) 2 puffs each nostril TID for [address] HOWELL NASAL SPRAY ( DEXAMETHASONE, GENTAMICIN, SALINE) No Longer Active Taina Germain ALBUTEROL SULFATE 0.083 % NEBU SOLN 1 treatment TID prn ALBUTEROL SULFATE 99554341797 Active Taina Germain VITAMINS PLUS TABS 1 PO daily VIT-FE FUMARATE-FA TABS 99572618606 Active Taina Germain SYNTHROID 200 MCG TABS 1 PO daily LEVOTHYROXINE SODIUM 53014870211 Active Kateryna Villalpando LANSOPRAZOLE 30 MG CPDR 1 PO daily LANSOPRAZOLE 20399483868 Active Kateryna Villalpando LOMOTIL 2.5-0.025 MG TABS 1 PO TID prn DIPHENOXYLATE-ATROPINE 80240215190 Active Kateryna Villalpando ZOFRAN ODT 8 MG TBDP 1 PO Q6hrs prn nausea ONDANSETRON 00015996980 Active Kateryna Villalpando Immunizations Vaccine Administration Date [...] % Encounters Code Encounter Date Provider Facility CPT-67290 Ofc Vst, Est Level IV 20:36:26 CDT Taina Valentine Germain, DO, FACP CPT-78690 Ofc Vst, Est Level IV 17:04:55 CDT Taina Germain, DO, FACP CPT-60063 Ofc Vst, Est Level IV 16:22:19 TECHNICAL OPERATIONS MANAGER Taina Germain, DO, FACP CPT-68382 Ofc Vst, Est Level IV 16:57:55 TECHNICAL OPERATIONS MANAGER Taina Germain, DO, FACP CPT-15966 Ofc Vst, Est Level III 20:30:19 CDT Taina Germain, DO, FACP CPT-51871 Ofc Vst, Est Level III 19:28:47 CDT Taina Germain, DO, FACP CPT-31775 Ofc Vst, Est Level IV 19:13:50 CDT Tainarussell Germain, DO, FACP CPT-91240 Ofc Vst, Est Level IV 12:14:27 TECHNICAL OPERATIONS MANAGER Taina Germain, DO, FACP CPT-97287 Ofc Vst, Est Level III 21:19:07 CDT Tainarussell Germain, DO, FACP CPT-74944 Ofc Vst, Est Level IV 13:12:49 CDT Taina Valentine Reganner Taina Valdez Jessa, DO, FACP CPT-36930 Ofc Vst, Est Level III 14:41:26 CDT Taina Valentine Reganner Taina Valdez Jessa, DO, FACP CPT-53949 Ofc Vst, Est Level IV 15:17:01 CDT Taina Valentine Jessa Tainarussell Germain, DO, FACP CPT-23336 Ofc Vst, Est Level III 16:02:16 CDT Taina Valentine Reganner Taina José Miguel Jessa, DO, FACP CPT-27063 Ofc Vst, Est Level V 21:51:11 CDT Taina Valentine Reganner Taina Valdez Jessa, DO, FACP CPT-90308 Ofc Vst, Est Level IV 13:07:29 CDT Tainarussell Grijalva Germain Tainarussell Germain, DO, FACP CPT-53037 Ofc Vst, Est Level III 13:03:11 CDT Tainarussell Reganner Taina José Miguel Jessa, DO, FACP CPT-21866 Ofc Vst, Est Level III 15:13:37 TECHNICAL OPERATIONS MANAGER Taina Grijalva Jessa Germain, DO, FACP Procedures Code Procedure Name Date Entry Date Standard Description CPT-06489 Preventive, Est, (40-64) 20:40:07 CDT
--- OUTSIDE RECORDS SUMMARY | 2018-10-13 09:24 | XMS REPORT | Clinical Summary ---
Author Author User, [employer] Taina Germain DO, FACP Address Unknown Phone [...] minutes before meals and QHS DICYCLOMINE HCL 42878902118 Active Taina Germain URSODIOL 300 MG CAPS 1 po BID URSODIOL 38074086308 Active Taina Germain SANDOSTATIN LAR DEPOT 10 MG KIT 1 injection monthly OCTREOTIDE ACETATE 16480219472 No Longer Active Taina Germain XANAX 0.25 MG TABS 1 PO Q6hrs prn ALPRAZOLAM 63039614925 Active Taina Germain VALTREX 1 GM TABS 1 PO daily VALACYCLOVIR HCL 85202535688 Active Taina Germain CELEXA 20 MG TABS 1 PO daily CITALOPRAM HYDROBROMIDE 76094797372 No Longer Active Taina Germain GLEEVEC 400 MG TABS 1/2 tab PO QD IMATINIB MESYLATE 28774364602 Active Taina Valentine Germain VALACYCLOVIR HCL 1 GM TABS 1 PO daily VALACYCLOVIR HCL 30999634758 No Longer Active Taina Valentine Germain XANAX 0.25 MG TABS 1 PO Q6hrs prn ALPRAZOLAM 03605729771 No Longer Active Taina Valentine Germain ANTIVERT 25 MG TABS 1 PO Qhrs prn MECLIZINE HCL 07492604445 No Longer Active Taina Valentine Germain PREDNISONE 10 MG TAB 1/2 po QOD PREDNISONE 71721949029 No Longer Active Taina Valentine Germain BACTRIM DS 800-160 MG TAB 1 PO on MWF TRIMETHOPRIM- SULFAMETHOXAZOLE 82268834084 No Longer Active Taina Valentine Germain LIPITOR 40 MG TAB 1 po daily ATORVASTATIN CALCIUM 86655210397 Active Kateryna Villalpando PREMARIN 0.625 MG/GM CREA 1 gm intravaginally HS ESTROGENS, CONJUGATED VAGINAL 21229596558 No Longer Active Taina Valentine Germain ESTRACE 0.1 MG/GM CREA Apply 1/2 gram vaginally twice a week ESTRADIOL 76766127698 Active Kateryna Villalpando LUVENA VAGINAL MOISTURIZER GEL use in vagina every third day VAGINAL MOISTURIZER 04053948611 Active Taina Valentine Germain PREDNISONE 10 MG TAB 1/2 PO daily PREDNISONE 61966163069 No Longer Active Taina Valentine Germain XANAX 0.25 MG TABS 1 PO Q6hrs prn ALPRAZOLAM 48029773894 No Longer Active Taina Valentine Germain CELEXA 20 MG TABS 1 PO daily CITALOPRAM HYDROBROMIDE 84014970858 No Longer Active Taina Valentine Germain CLOBETASOL PROPIONATE E 0.05 % CREA Apply to infected areas BID CLOBETASOL PROP EMOLLIENT BASE 49423764241 No Longer Active Taina Germain PREDNISONE 10 MG TAB 4 PO daily until further notice PREDNISONE 15704225292 No Longer Active Taina Germain RESTASIS EMUL 1 drop each eye BID CYCLOSPORINE EMUL 59122291040 No Longer Active Taina Germain NYSTATIN 666375 U/ML SUSP 5cc PO QID for 7 days NYSTATIN 19701909938 No Longer Active Taina Germain ZITHROMAX Z-STEPHON 250 MG TABS as directed AZITHROMYCIN 10267808651 Active Taina YOUNG'José Miguel NASAL SPRAY (DEXAMETHASONE, GENTAMICIN, SALINE) 2 puffs each nostril TID for [address] HOWELL NASAL SPRAY ( DEXAMETHASONE, GENTAMICIN, SALINE) No Longer Active Taina Germain ALBUTEROL SULFATE 0.083 % NEBU SOLN 1 treatment TID prn ALBUTEROL SULFATE 70854761632 Active Taina Germain VITAMINS PLUS TABS 1 PO daily VIT-FE FUMARATE-FA TABS 74227847012 Active Taina Germain SYNTHROID 200 MCG TABS 1 PO daily LEVOTHYROXINE SODIUM 65589550883 Active Kateryna Villalpando LANSOPRAZOLE 30 MG CPDR 1 PO daily LANSOPRAZOLE 74293915536 Active Kateryna Villalpando LOMOTIL 2.5-0.025 MG TABS 1 PO TID prn DIPHENOXYLATE-ATROPINE 70540726598 Active Kateryna Villalpando ZOFRAN ODT 8 MG TBDP 1 PO Q6hrs prn nausea ONDANSETRON 39248875883 Active Kateryna Villalpando Immunizations Vaccine Administration Date [...] % Encounters Code Encounter Date Provider Facility CPT-13998 Ofc Vst, Est Level IV 20:36:26 CDT Taina Valentine Germain, DO, FACP CPT-25396 Ofc Vst, Est Level IV 17:04:55 CDT Taina Germain, DO, FACP CPT-77424 Ofc Vst, Est Level IV 16:22:19 TOWER TRUCK DRIVER Taina Germain, DO, FACP CPT-19093 Ofc Vst, Est Level IV 16:57:55 TOWER TRUCK DRIVER Taina Germain, DO, FACP CPT-18320 Ofc Vst, Est Level III 20:30:19 CDT Taina Germain, DO, FACP CPT-06442 Ofc Vst, Est Level III 19:28:47 CDT Taina Germain, DO, FACP CPT-34409 Ofc Vst, Est Level IV 19:13:50 CDT Tainarussell Germain, DO, FACP CPT-39456 Ofc Vst, Est Level IV 12:14:27 TOWER TRUCK DRIVER Taina Germain, DO, FACP CPT-88886 Ofc Vst, Est Level III 21:19:07 CDT Tainarussell Germain, DO, FACP CPT-34417 Ofc Vst, Est Level IV 13:12:49 CDT Taina Valentine Reganner Taina José Miguel Jessa, DO, FACP CPT-37606 Ofc Vst, Est Level III 14:41:26 CDT Taina Valentine Reganner Taina José Miguel Jessa, DO, FACP CPT-60115 Ofc Vst, Est Level IV 15:17:01 CDT Taina Valentine Jessa Tainarussell Germain, DO, FACP CPT-40641 Ofc Vst, Est Level III 16:02:16 CDT Taina Valentine Jessa Taina José Miguel Jessa, DO, FACP CPT-92692 Ofc Vst, Est Level V 21:51:11 CDT Taina Valentine Reganner Taina José Miguel Jessa, DO, FACP CPT-41041 Ofc Vst, Est Level IV 13:07:29 CDT Tainarussell Grijalva Jessa Tainarussell Germain DO, FACP CPT-22558 Ofc Vst, Est Level III 13:03:11 CDT Tainarussell Reganner Tainarussell Germain, DO, FACP CPT-57369 Ofc Vst, Est Level III 15:13:37 TOWER TRUCK DRIVER Taina Grijalva Jessa Germain, DO, FACP Procedures Code Procedure Name Date Entry Date Standard Description CPT-42190 Preventive, Est, (40-64) 20:40:07 CDT
--- OUTSIDE RECORDS SUMMARY | 2018-10-13 09:25 | XMS REPORT | Clinical Summary ---
Author Author User, [employer] Taina Germain DO, FACP Address Unknown Phone [...] 300 MG CAPS 1 po BID URSODIOL 41887180658 No Longer Active Taina Germain BENTYL 10 MG CAPS 1 PO 15 minutes before meals and QHS DICYCLOMINE HCL 96886066884 No Longer Active Taina Germain SANDOSTATIN LAR DEPOT 10 MG KIT 1 injection monthly OCTREOTIDE ACETATE 72554263061 No Longer Active Taina Germain XANAX 0.25 MG TABS 1 PO Q6hrs prn ALPRAZOLAM 63794264434 Active Taina Germain VALTREX 1 GM TABS 1 PO daily VALACYCLOVIR HCL 24285293921 Active Kateryna Damar CELEXA 20 MG TABS 1 PO daily CITALOPRAM HYDROBROMIDE 02915522388 No Longer Active Taina Valentine Germain GLEEVEC 400 MG TABS 1/2 tab PO QD IMATINIB MESYLATE 71094767752 Active Kateryna Villalpando VALACYCLOVIR HCL 1 GM TABS 1 PO daily VALACYCLOVIR HCL 19520437084 No Longer Active Taina Valentine Germain XANAX 0.25 MG TABS 1 PO Q6hrs prn ALPRAZOLAM 20854740771 No Longer Active Taina Valentine Germain ANTIVERT 25 MG TABS 1 PO Qhrs prn MECLIZINE HCL 39171913281 No Longer Active Taina Valentine Germain PREDNISONE 10 MG TAB 1/2 po QOD PREDNISONE 56410568730 No Longer Active Taina Valentine Germain BACTRIM DS 800-160 MG TAB 1 PO on MWF TRIMETHOPRIM- SULFAMETHOXAZOLE 47974155433 No Longer Active Taina Valentine Germain LIPITOR 40 MG TAB 1 po daily ATORVASTATIN CALCIUM 28333303049 Active Katerynacarlin Villalpando PREMARIN 0.625 MG/GM CREA 1 gm intravaginally HS ESTROGENS, CONJUGATED VAGINAL 16868710618 No Longer Active Taina Valentine Germain ESTRACE 0.1 MG/GM CREA Apply 1/2 gram vaginally twice a week ESTRADIOL 20100536623 Active Kateryna Villalpando LUVENA VAGINAL MOISTURIZER GEL use in vagina every third day VAGINAL MOISTURIZER 77348619572 Active Taina Valentine Germain PREDNISONE 10 MG TAB 1/2 PO daily PREDNISONE 15607937572 No Longer Active Taina Valentine Germain XANAX 0.25 MG TABS 1 PO Q6hrs prn ALPRAZOLAM 21531966057 No Longer Active Taina Valentine Germain CELEXA 20 MG TABS 1 PO daily CITALOPRAM HYDROBROMIDE 74725979403 No Longer Active Taina Germain CLOBETASOL PROPIONATE E 0.05 % CREA Apply to infected areas BID CLOBETASOL PROP EMOLLIENT BASE 74819246105 No Longer Active Taina Germain PREDNISONE 10 MG TAB 4 PO daily until further notice PREDNISONE 23313739460 No Longer Active Taina Germain RESTASIS EMUL 1 drop each eye BID CYCLOSPORINE EMUL 46080875750 No Longer Active Taina Germain NYSTATIN 604842 U/ML SUSP 5cc PO QID for 7 days NYSTATIN 52823081373 No Longer Active Taina Germain ZITHROMAX Z-STEPHON 250 MG TABS as directed AZITHROMYCIN 32913735562 Active Taina YOUNG'Martha NASAL SPRAY (DEXAMETHASONE, GENTAMICIN, SALINE) 2 puffs each nostril TID for [address] HOWELL NASAL SPRAY ( DEXAMETHASONE, GENTAMICIN, SALINE) No Longer Active Taina Germain ALBUTEROL SULFATE 0.083 % NEBU SOLN 1 treatment TID prn ALBUTEROL SULFATE 67769731390 Active Taina Germain VITAMINS PLUS TABS 1 PO daily VIT-FE FUMARATE-FA TABS 90178521411 Active Taina Germain SYNTHROID 200 MCG TABS 1 PO daily LEVOTHYROXINE SODIUM 60798684633 Active Kateryna Villalpando LANSOPRAZOLE 30 MG CPDR 1 PO daily LANSOPRAZOLE 46151850225 Active Kateryna Villalpando LOMOTIL 2.5-0.025 MG TABS 1 PO TID prn DIPHENOXYLATE-ATROPINE 11424874593 Active Kateryna Villalpando ZOFRAN ODT 8 MG TBDP 1 PO Q6hrs prn nausea ONDANSETRON 91041487159 Active Kateryna Villalpando Immunizations Vaccine Administration Date [...] hemoglobin, blood 12.6 g/dL Office Visit: Dr Germain'martha Check Up: Established [...] % Encounters Code Encounter Date Provider Facility CPT-12076 Ofc Vst, Est Level IV 20:36:26 CDT Taina Valentine Germain Taina S Germain, DO, FACP CPT-79467 Ofc Vst, Est Level IV 17:04:55 CDT Taina Valentine Valdez Germain, DO, FACP CPT-01570 Ofc Vst, Est Level IV 16:22:19 SENIOR RECEPTIONIST Taina Valdez Germain, DO, FACP CPT-39241 Ofc Vst, Est Level IV 16:57:55 SENIOR RECEPTIONIST Tainarussell Valdez Germain, DO, FACP CPT-28698 Ofc Vst, Est Level III 20:30:19 CDT Taina Valentine Valdez Jessa, DO, FACP CPT-43300 Ofc Vst, Est Level III 19:28:47 CDT Tainarussell Valdez Jessa, DO, FACP CPT-19875 Ofc Vst, Est Level IV 19:13:50 CDT Taina Valentine Valdez Jessa, DO, FACP CPT-75132 Ofc Vst, Est Level IV 12:14:27 SENIOR RECEPTIONIST Taina Valdez Jessa, DO, FACP CPT-39007 Ofc Vst, Est Level III 21:19:07 CDT Tainarussell Valdez Jessa, DO, FACP CPT-82112 Ofc Vst, Est Level IV 13:12:49 CDT Taina Valentine Valdez Jessa, DO, FACP CPT-98789 Ofc Vst, Est Level III 14:41:26 CDT Taina Valentine Valdez Jessa, DO, FACP CPT-75150 Ofc Vst, Est Level IV 15:17:01 CDT Taina Valentine Valdez Jessa, DO, FACP CPT-51256 Ofc Vst, Est Level III 16:02:16 CDT Taina Valentine Valdez Jessa, DO, FACP CPT-29349 Ofc Vst, Est Level V 21:51:11 CDT Tainarussell Germain DO, FACP CPT-53388 Ofc Vst, Est Level IV 13:07:29 CDT Taina Germain DO, FACP CPT-91230 Ofc Vst, Est Level III 13:03:11 CDT Taina Germain DO, FACP CPT-71171 Ofc Vst, Est Level III 15:13:37 SENIOR RECEPTIONIST Taina Germain DO, FACP Procedures Code Procedure Name Date Entry Date Standard Description CPT-13185 Preventive, Est, (40-64) 14:37:50 CDT CPT-21329 Preventive, Est, (40-64) 20:40:07 CDT
--- OUTSIDE RECORDS SUMMARY | 2018-10-13 09:27 | XMS REPORT | Clinical Summary ---
Author Author User, [employer] Taina Germain DO, FACP Address Unknown Phone [...] 300 MG CAPS 1 po BID URSODIOL 69886360736 No Longer Active Taina Germain BENTYL 10 MG CAPS 1 PO 15 minutes before meals and QHS DICYCLOMINE HCL 87930955478 No Longer Active Taina Germain SANDOSTATIN LAR DEPOT 10 MG KIT 1 injection monthly OCTREOTIDE ACETATE 64331487650 No Longer Active Taina Germain XANAX 0.25 MG TABS 1 PO Q6hrs prn ALPRAZOLAM 82158762311 Active Taina Germain VALTREX 1 GM TABS 1 PO daily VALACYCLOVIR HCL 69491748164 Active Kateryna Grahamtis CELEXA 20 MG TABS 1 PO daily CITALOPRAM HYDROBROMIDE 92769535376 No Longer Active Taina Valentine Germain GLEEVEC 400 MG TABS 1/2 tab PO QD IMATINIB MESYLATE 76627791251 Active Kateryna Villalpando VALACYCLOVIR HCL 1 GM TABS 1 PO daily VALACYCLOVIR HCL 74750625358 No Longer Active Taina Valentine Germain XANAX 0.25 MG TABS 1 PO Q6hrs prn ALPRAZOLAM 93038269370 No Longer Active Taina Valentine Germain ANTIVERT 25 MG TABS 1 PO Qhrs prn MECLIZINE HCL 52050511097 No Longer Active Taina Valentine Gemrain PREDNISONE 10 MG TAB 1/2 po QOD PREDNISONE 66447471925 No Longer Active Taina Valentine Germain BACTRIM DS 800-160 MG TAB 1 PO on MWF TRIMETHOPRIM- SULFAMETHOXAZOLE 10514956592 No Longer Active Taina Valentine Germain LIPITOR 40 MG TAB 1 po daily ATORVASTATIN CALCIUM 49662616693 Active Kateryna Villalpando PREMARIN 0.625 MG/GM CREA 1 gm intravaginally HS ESTROGENS, CONJUGATED VAGINAL 51194413331 No Longer Active Taina Valentine Germain ESTRACE 0.1 MG/GM CREA Apply 1/2 gram vaginally twice a week ESTRADIOL 39632446544 Active Kateryna Villalpando LUVENA VAGINAL MOISTURIZER GEL use in vagina every third day VAGINAL MOISTURIZER 85295063259 Active Taina Valentine Germain PREDNISONE 10 MG TAB 1/2 PO daily PREDNISONE 34708822826 No Longer Active Taina Valentine Germain XANAX 0.25 MG TABS 1 PO Q6hrs prn ALPRAZOLAM 48992721113 No Longer Active Taina Valentine Germain CELEXA 20 MG TABS 1 PO daily CITALOPRAM HYDROBROMIDE 28705310663 No Longer Active Taina Germain CLOBETASOL PROPIONATE E 0.05 % CREA Apply to infected areas BID CLOBETASOL PROP EMOLLIENT BASE 91097590812 No Longer Active Taina Germain PREDNISONE 10 MG TAB 4 PO daily until further notice PREDNISONE 10685881223 No Longer Active Taina Germain RESTASIS EMUL 1 drop each eye BID CYCLOSPORINE EMUL 44292323916 No Longer Active Taina Germain NYSTATIN 263130 U/ML SUSP 5cc PO QID for 7 days NYSTATIN 20189040998 No Longer Active Taina Germain ZITHROMAX Z-STEPHON 250 MG TABS as directed AZITHROMYCIN 68111046093 Active Taina YOUNG'Martha NASAL SPRAY (DEXAMETHASONE, GENTAMICIN, SALINE) 2 puffs each nostril TID for [address] HOWELL NASAL SPRAY ( DEXAMETHASONE, GENTAMICIN, SALINE) No Longer Active Taina Germain ALBUTEROL SULFATE 0.083 % NEBU SOLN 1 treatment TID prn ALBUTEROL SULFATE 33925203929 Active Taina Germain VITAMINS PLUS TABS 1 PO daily VIT-FE FUMARATE-FA TABS 94546729541 Active Taina Germain SYNTHROID 200 MCG TABS 1 PO daily LEVOTHYROXINE SODIUM 95776682459 Active Kateryna Villalpando LANSOPRAZOLE 30 MG CPDR 1 PO daily LANSOPRAZOLE 18854467812 Active Kateryna Villalpando LOMOTIL 2.5-0.025 MG TABS 1 PO TID prn DIPHENOXYLATE-ATROPINE 96220832632 Active Kateryna Villalpando ZOFRAN ODT 8 MG TBDP 1 PO Q6hrs prn nausea ONDANSETRON 74268586898 Active Kateryna Villalpando Immunizations Vaccine Administration Date [...] % Encounters Code Encounter Date Provider Facility CPT-05273 Ofc Vst, Est Level IV 20:36:26 CDT Taina Valentinenat Reganner, DO, FACP CPT-09006 Ofc Vst, Est Level IV 17:04:55 CDT Taina Valentine Germain, DO, FACP CPT-09869 Ofc Vst, Est Level IV 16:22:19 WAGON WASHER Taina Germain, DO, FACP CPT-44515 Ofc Vst, Est Level IV 16:57:55 WAGON WASHER Taina Germain, DO, FACP CPT-86918 Ofc Vst, Est Level III 20:30:19 CDT Taina Valentine Germain, DO, FACP CPT-24430 Ofc Vst, Est Level III 19:28:47 CDT Tainarussell Germain, DO, FACP CPT-30283 Ofc Vst, Est Level IV 19:13:50 CDT Tainarussell Germain, DO, FACP CPT-27809 Ofc Vst, Est Level IV 12:14:27 WAGON WASHER Taina Germain, DO, FACP CPT-25326 Ofc Vst, Est Level III 21:19:07 CDT Tainarussell Germain, DO, FACP CPT-52476 Ofc Vst, Est Level IV 13:12:49 CDT Taina Germain, DO, FACP CPT-79135 Ofc Vst, Est Level III 14:41:26 CDT Taina Germain, DO, FACP CPT-95852 Ofc Vst, Est Level IV 15:17:01 CDT Tainarussell Germain Taina Martha Jessa DO, FACP CPT-41188 Ofc Vst, Est Level III 16:02:16 CDT Taina Grijalva Jessa Germain DO, FACP CPT-96642 Ofc Vst, Est Level V 21:51:11 CDT Taina Grijalva Jessa Germain DO, FACP CPT-81964 Ofc Vst, Est Level IV 13:07:29 CDT Taina Reganner Tainarussell Germain DO, FACP CPT-63948 Ofc Vst, Est Level III 13:03:11 CDT Taina Grijalva Jessa Germain DO, FACP CPT-98274 Ofc Vst, Est Level III 15:13:37 WAGON WASHER Taina Grijalva Jessa Germain DO, FACP Procedures Code Procedure Name Date Entry Date Standard Description CPT-66599 Preventive, Est, (40-64) 14:37:50 CDT CPT-99929 Preventive, Est, (40-64) 20:40:07 CDT
--- OUTSIDE RECORDS SUMMARY | 2018-10-13 09:28 | XMS REPORT | Clinical Summary ---
Author Author User, [employer] Taina Germain DO, FACP Address Unknown Phone [...] minutes before meals and QHS DICYCLOMINE HCL 02102895982 Active Taina Germain URSODIOL 300 MG CAPS 1 po BID URSODIOL 95667820960 Active Taina Germain SANDOSTATIN LAR DEPOT 10 MG KIT 1 injection monthly OCTREOTIDE ACETATE 03924211120 No Longer Active Taina Germain XANAX 0.25 MG TABS 1 PO Q6hrs prn ALPRAZOLAM 59090305774 Active Taina Germain VALTREX 1 GM TABS 1 PO daily VALACYCLOVIR HCL 31881123375 Active Kateryna Villalpando CELEXA 20 MG TABS 1 PO daily CITALOPRAM HYDROBROMIDE 18016078478 No Longer Active Taina Germain GLEEVEC 400 MG TABS 1/2 tab PO QD IMATINIB MESYLATE 40597256229 Active Katerynacarlin Villalpando VALACYCLOVIR HCL 1 GM TABS 1 PO daily VALACYCLOVIR HCL 01129982989 No Longer Active Taina Valentine Germain XANAX 0.25 MG TABS 1 PO Q6hrs prn ALPRAZOLAM 84914742452 No Longer Active Taina Valentine Germain ANTIVERT 25 MG TABS 1 PO Qhrs prn MECLIZINE HCL 48011727484 No Longer Active Taina Valentine Germain PREDNISONE 10 MG TAB 1/2 po QOD PREDNISONE 37504234008 No Longer Active Taina Valentine Germain BACTRIM DS 800-160 MG TAB 1 PO on MWF TRIMETHOPRIM- SULFAMETHOXAZOLE 40714018433 No Longer Active Taina Valentine Germain LIPITOR 40 MG TAB 1 po daily ATORVASTATIN CALCIUM 11417663103 Active Katerynacarlin Villalpando PREMARIN 0.625 MG/GM CREA 1 gm intravaginally HS ESTROGENS, CONJUGATED VAGINAL 78520943553 No Longer Active Taina Valentine Germain ESTRACE 0.1 MG/GM CREA Apply 1/2 gram vaginally twice a week ESTRADIOL 24029280307 Active Katerynacarlin Villalpando LUVENA VAGINAL MOISTURIZER GEL use in vagina every third day VAGINAL MOISTURIZER 61724948147 Active Taina Valentine Germain PREDNISONE 10 MG TAB 1/2 PO daily PREDNISONE 70831250673 No Longer Active Taina Valentine Germain XANAX 0.25 MG TABS 1 PO Q6hrs prn ALPRAZOLAM 41737262869 No Longer Active Taina Valentine Germain CELEXA 20 MG TABS 1 PO daily CITALOPRAM HYDROBROMIDE 54344657729 No Longer Active Taina Valentine Germain CLOBETASOL PROPIONATE E 0.05 % CREA Apply to infected areas BID CLOBETASOL PROP EMOLLIENT BASE 29943123345 No Longer Active Taina Germain PREDNISONE 10 MG TAB 4 PO daily until further notice PREDNISONE 56774759111 No Longer Active Taina Germain RESTASIS EMUL 1 drop each eye BID CYCLOSPORINE EMUL 86425578373 No Longer Active Taina Germain NYSTATIN 746739 U/ML SUSP 5cc PO QID for 7 days NYSTATIN 31104178938 No Longer Active Taina Germain ZITHROMAX Z-STEPHON 250 MG TABS as directed AZITHROMYCIN 19649101772 Active Taina YOUNG'José Miguel NASAL SPRAY (DEXAMETHASONE, GENTAMICIN, SALINE) 2 puffs each nostril TID for [address] HOWELL NASAL SPRAY ( DEXAMETHASONE, GENTAMICIN, SALINE) No Longer Active Taina Germain ALBUTEROL SULFATE 0.083 % NEBU SOLN 1 treatment TID prn ALBUTEROL SULFATE 82067918422 Active Taina Germain VITAMINS PLUS TABS 1 PO daily VIT-FE FUMARATE-FA TABS 34512845074 Active Taina Germain SYNTHROID 200 MCG TABS 1 PO daily LEVOTHYROXINE SODIUM 89050349895 Active Kateryna Villalpando LANSOPRAZOLE 30 MG CPDR 1 PO daily LANSOPRAZOLE 56731569485 Active Kateryna Villalpando LOMOTIL 2.5-0.025 MG TABS 1 PO TID prn DIPHENOXYLATE-ATROPINE 62511657133 Active Kateryna Villalpando ZOFRAN ODT 8 MG TBDP 1 PO Q6hrs prn nausea ONDANSETRON 80576903183 Active Kateryna Villalpando Immunizations Vaccine Administration Date [...] 1+ Clinical Lists Update: CBC,CMP - Chemistry potassium, serum 4.3 mmol/L potassium, serum 4.1 [...] serum 7.1 g/dL potassium, serum 4.5 mmol/L Clinical Lists Update: CBC,CMP - Hematology [...] Update: CBC,CMP DR LEDEZMA LABS - Chemistry carbon dioxide, venous blood 25 mmol/L creatinine, serum 1.02 mg/dL calcium, serum 10.1 mg/dL urea nitrogen, blood 19 mg/dL alkaline phosphatase, serum 111 U/L albumin, serum 4.4 g/dL chloride, serum 99 mmol/L bilirubin, serum, direct 0.2 mg/dL potassium, serum 4.4 mmol/L protein, total, serum 8.2 g/dL aspartate aminotransferase (SGOT), serum 61 U/L alanine aminotransferase (SGPT), serum 70 U/L bilirubin, serum, total 0.2 mg/dL Estimated Glomerular Filtration Rate (calc) 57 mL/min/1.73m2 glucose, plasma fasting 102 mg/dL anion gap, serum 16 sodium, serum 136 mmol/L Clinical Lists Update: CBC,CMP DR LEDEZMA LABS - Hematology hematocrit, blood 36.1 % hemoglobin, blood 12.1 g/dL platelet count 425 10*3/mm3 erythrocyte (RBC) count 3.53 10*6/mm3 leukocyte count, blood 7.60 10*3/mm3 mean corpuscular volume, RBC 102.3 fL red blood cell distribution width 14.0 % Clinical Lists Update: CBC,CMP,Bili Direct - Chemistry carbon dioxide, venous blood 23 mmol/L carbon dioxide, venous blood 26 mmol/L chloride, serum 105 mmol/L chloride, serum 103 mmol/L calcium, serum 94 mg/dL calcium, serum 9.7 mg/dL urea nitrogen, blood 12 mg/dL urea nitrogen, blood 15 mg/dL alkaline phosphatase, serum 100 U/L alkaline phosphatase, serum 106 U/L albumin, serum 4.0 g/dL albumin, serum 4.2 g/dL Estimated Glomerular Filtration Rate (calc) 59 mL/min/1.73m2 Estimated Glomerular Filtration Rate (calc) 61 mL/min/1.73m2 glucose, plasma fasting 94 mg/dL glucose, plasma fasting 115 mg/dL anion gap, serum 16 anion gap, serum 14 sodium, serum 140 mmol/L sodium, serum 139 mmol/L bilirubin, serum, total 0.3 mg/dL bilirubin, serum, total 0.4 mg/dL alanine aminotransferase (SGPT), serum 30 U/L alanine aminotransferase (SGPT), serum 34 U/L aspartate aminotransferase (SGOT), serum 38 U/L aspartate aminotransferase (SGOT), serum 37 U/L protein, total, serum 7.0 g/dL protein, total, serum 7.2 g/dL potassium, serum 4.4 mmol/L potassium, serum 4.2 mmol/L bilirubin, serum, direct 0.1 mg/dL creatinine, serum 0.99 mg/dL creatinine, serum 0.96 mg/dL Clinical Lists Update: CBC,CMP,Bili Direct - Hematology red blood cell distribution width 17.6 % red blood cell distribution width 16.1 % mean corpuscular volume, RBC 98.1 fL mean corpuscular volume, RBC 97.4 fL leukocyte count, blood 10.93 10*3/mm3 leukocyte count, blood 6.66 10*3/mm3 erythrocyte (RBC) count 3.12 10*6/mm3 erythrocyte (RBC) count 3.48 10*6/mm3 platelet count 504 10*3/mm3 platelet count 483 10*3/mm3 hemoglobin, blood 9.6 g/dL hemoglobin, blood 10.8 g/dL hematocrit, blood 30.6 % hematocrit, blood 33.9 % Clinical Lists Update: CBC,CMP,Bili Direct DR LEDEZMA LABS - Chemistry Estimated Glomerular Filtration Rate (calc) 71 mL/min/1.73m2 protein, total, serum 6.6 g/dL glucose, plasma fasting 98 mg/dL alkaline phosphatase, serum 102 U/L urea nitrogen, blood 14 mg/dL calcium, serum 9.3 mg/dL anion gap, serum 13 chloride, serum 106 mmol/L sodium, serum 141 mmol/L carbon dioxide, venous blood 27 mmol/L creatinine, serum 0.85 mg/dL bilirubin, serum, total 0.2 mg/dL bilirubin, serum, direct 0.1 mg/dL alanine aminotransferase (SGPT), serum 20 U/L potassium, serum 4.5 mmol/L aspartate aminotransferase (SGOT), serum 29 U/L albumin, serum 3.8 g/dL Clinical Lists Update: CBC,CMP,Bili Direct DR LEDEZMA LABS - Hematology hematocrit, blood 28.4 % hemoglobin, blood 8.7 g/dL platelet count 529 10*3/mm3 erythrocyte (RBC) count 2.90 10*6/mm3 leukocyte count, blood 6.52 10*3/mm3 mean corpuscular volume, RBC 97.9 fL red blood cell distribution width 16.5 % Clinical Lists Update: CBC,CMP,FERRITIN,FLP,TSH,FREE T4,HGA1C - Chemistry HDL cholesterol, serum 37 mg/dL aspartate aminotransferase (SGOT), serum 35 U/L ferritin, serum 31.87 ng/mL bilirubin, serum, total 0.4 mg/dL triglyceride, serum, fasting 425 mg/dL creatinine, serum 0.97 mg/dL sodium, serum 140 mmol/L carbon dioxide, venous blood 21 mmol/L cholesterol, serum 192 mg/dL anion gap, serum 17 chloride, serum 106 mmol/L cholesterol/HDL ratio, serum, percent 5.2 calcium, serum 9.9 mg/dL very low density lipoproteins 85 mg/dL urea nitrogen, blood 13 mg/dL glucose, plasma fasting 117 mg/dL alkaline phosphatase, serum 96 U/L Estimated Glomerular Filtration Rate (calc) 61 mL/min/1.73m2 albumin, serum 4.3 g/dL thyroxine, serum, free 1.37 ng/dL protein, total, serum 7.3 g/dL alanine aminotransferase (SGPT), serum 36 U/L potassium, serum 4.2 mmol/L LDL cholesterol, serum 70 mg/dL thyroid stimulating hormone, serum 0.20 u[iU]/mL hemoglobin A1C, blood, as % of total hemoglobin 5.60 % Clinical Lists Update: CBC,CMP,FERRITIN,FLP,TSH,FREE T4,HGA1C - Hematology hematocrit, blood 38.4 % leukocyte count, blood 6.33 10*3/mm3 platelet count 446 10*3/mm3 mean corpuscular volume, RBC 99.2 fL hemoglobin, blood 12.6 g/dL red blood cell distribution width 14.7 % erythrocyte (RBC) count 3.87 10*6/mm3 Office [...] % Encounters Code Encounter Date Provider Facility CPT-64466 Ofc Vst, Est Level IV 20:36:26 CDT Taina Germain DO, FACP CPT-07000 Ofc Vst, Est Level IV 17:04:55 CDT Taina Germain DO, FACP CPT-82781 Ofc Vst, Est Level IV 16:22:19 PRINCIPAL ACCOUNTS CLERK Taina Germain DO, FACP CPT-07794 Ofc Vst, Est Level IV 16:57:55 PRINCIPAL ACCOUNTS CLERK Taina Germain DO, FACP CPT-63591 Ofc Vst, Est Level III 20:30:19 CDT Taina Germain DO, FACP CPT-21352 Ofc Vst, Est Level III 19:28:47 CDT Taina Valentine Germain Taina S Germain, DO, FACP CPT-93072 Ofc Vst, Est Level IV 19:13:50 CDT Taina Valentine Reganner, DO, FACP CPT-29154 Ofc Vst, Est Level IV 12:14:27 PRINCIPAL ACCOUNTS CLERK Taina Valdez Germain, DO, FACP CPT-67439 Ofc Vst, Est Level III 21:19:07 CDT Taina Valentine Reganner, DO, FACP CPT-51905 Ofc Vst, Est Level IV 13:12:49 CDT Taina Valentine Valdez Germain, DO, FACP CPT-75493 Ofc Vst, Est Level III 14:41:26 CDT Taina Valentine Valdez Germain, DO, FACP CPT-86563 Ofc Vst, Est Level IV 15:17:01 CDT Tainarussell Germain, DO, FACP CPT-86935 Ofc Vst, Est Level III 16:02:16 CDT Taina Valdez Germain, DO, FACP CPT-74041 Ofc Vst, Est Level V 21:51:11 CDT Taina Valdez Germain, DO, FACP CPT-96621 Ofc Vst, Est Level IV 13:07:29 CDT Tainarussell Valdez Germain, DO, FACP CPT-06231 Ofc Vst, Est Level III 13:03:11 CDT Taina Valdez Germain, DO, FACP CPT-54477 Ofc Vst, Est Level III 15:13:37 PRINCIPAL ACCOUNTS CLERK Taina Valdez Germain, DO, FACP Procedures Code Procedure Name Date Entry Date Standard Description CPT-27319 Preventive, Est, (40-64) 20:40:07 CDT
--- OUTSIDE RECORDS SUMMARY | 2018-10-13 09:29 | XMS REPORT | Clinical Summary ---
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 CANDIDIASIS, ESOPHAGEAL 112.84 Resolved Taina Germain Candidal esophagitis HERPES ESOPHAGITIS 530.19 Resolved Taina eGrmain Other esophagitis WELL WOMAN V70.0 Resolved Taina Germain Routine general medical examination at a health care facility HYPERTRIGLYCERIDEMIA 272.1 Active Taina Germain Pure hyperglyceridemia ABDOMINAL PAIN, GENERALIZED 789.07 Active Taina Germain Abdominal pain, generalized Medication List Medication Instructions Start Date Stop Date Generic Name ND Status Provider Patient Instruction BENTYL 10 MG CAPS 1 PO 15 minutes before meals and QHS DICYCLOMINE HCL 66045781957 Active Taina Germain URSODIOL 300 MG CAPS 1 po BID URSODIOL 82221898149 Active Taina Germain SANDOSTATIN LAR DEPOT 10 MG KIT 1 injection monthly OCTREOTIDE ACETATE 29655821772 No Longer Active Taina Germain XANAX 0.25 MG TABS 1 PO Q6hrs prn ALPRAZOLAM 89333333772 Active Taina Germain VALTREX 1 GM TABS 1 PO daily VALACYCLOVIR HCL 82077523019 Active Taina Germain CELEXA 20 MG TABS 1 PO daily CITALOPRAM HYDROBROMIDE 15761925866 No Longer Active Taina Germain GLEEVEC 400 MG TABS 1/2 tab PO QD IMATINIB MESYLATE 93856374160 Active Taina Valentine Germain VALACYCLOVIR HCL 1 GM TABS 1 PO daily VALACYCLOVIR HCL 40903011208 No Longer Active Taina Valentine Germain XANAX 0.25 MG TABS 1 PO Q6hrs prn ALPRAZOLAM 60240927536 No Longer Active Taina Valentine Germain ANTIVERT 25 MG TABS 1 PO Qhrs prn MECLIZINE HCL 33784455167 No Longer Active Taina Valentine Germain PREDNISONE 10 MG TAB 1/2 po QOD PREDNISONE 74722123842 No Longer Active Taina Valentine Germain BACTRIM DS 800-160 MG TAB 1 PO on MWF TRIMETHOPRIM- SULFAMETHOXAZOLE 20517314401 No Longer Active Taina Valentine Germain LIPITOR 40 MG TAB 1 po daily ATORVASTATIN CALCIUM 59239842914 Active Kateryna Villalpando PREMARIN 0.625 MG/GM CREA 1 gm intravaginally HS ESTROGENS, CONJUGATED VAGINAL 36619233215 No Longer Active Taina Valentine Germain ESTRACE 0.1 MG/GM CREA Apply 1/2 gram vaginally twice a week ESTRADIOL 61987305529 Active Kateryna Villalpando LUVENA VAGINAL MOISTURIZER GEL use in vagina every third day VAGINAL MOISTURIZER 55307276454 Active Taina Valentine Germain PREDNISONE 10 MG TAB 1/2 PO daily PREDNISONE 95326189132 No Longer Active Taina Valentine Germain XANAX 0.25 MG TABS 1 PO Q6hrs prn ALPRAZOLAM 27736286556 No Longer Active Taina Valentine Germain CELEXA 20 MG TABS 1 PO daily CITALOPRAM HYDROBROMIDE 82027460093 No Longer Active Taina Valentine Germain CLOBETASOL PROPIONATE E 0.05 % CREA Apply to infected areas BID CLOBETASOL PROP EMOLLIENT BASE 82475943224 No Longer Active Taina Germain PREDNISONE 10 MG TAB 4 PO daily until further notice PREDNISONE 46875657948 No Longer Active Taina Germain RESTASIS EMUL 1 drop each eye BID CYCLOSPORINE EMUL 33787651677 No Longer Active Taina Germain NYSTATIN 607862 U/ML SUSP 5cc PO QID for 7 days NYSTATIN 00229487040 No Longer Active Taina Germain ZITHROMAX Z-STEPHON 250 MG TABS as directed AZITHROMYCIN 00670749986 Active Taina YOUNG'José Miguel NASAL SPRAY (DEXAMETHASONE, GENTAMICIN, SALINE) 2 puffs each nostril TID for [address] HOWELL NASAL SPRAY ( DEXAMETHASONE, GENTAMICIN, SALINE) No Longer Active Taina Germain ALBUTEROL SULFATE 0.083 % NEBU SOLN 1 treatment TID prn ALBUTEROL SULFATE 81759854286 Active Taina Germain VITAMINS PLUS TABS 1 PO daily VIT-FE FUMARATE-FA TABS 53723402035 Active Taina Germain SYNTHROID 200 MCG TABS 1 PO daily LEVOTHYROXINE SODIUM 69600317311 Active Kateryna Villalpando LANSOPRAZOLE 30 MG CPDR 1 PO daily LANSOPRAZOLE 54254843200 Active Kateryna Villalpando LOMOTIL 2.5-0.025 MG TABS 1 PO TID prn DIPHENOXYLATE-ATROPINE 68768643919 Active Kateryna Villalpando ZOFRAN ODT 8 MG TBDP 1 PO Q6hrs prn nausea ONDANSETRON 79899379142 Active Kateryna Villalpando Immunizations Vaccine Administration Date [...] % Encounters Code Encounter Date Provider Facility CPT-61400 Ofc Vst, Est Level IV 20:36:26 CDT Taina Valentine Germain, DO, FACP CPT-02181 Ofc Vst, Est Level IV 17:04:55 CDT Taina Germain, DO, FACP CPT-29351 Ofc Vst, Est Level IV 16:22:19 [employer] Taina Germain, DO, FACP CPT-39286 Ofc Vst, Est Level IV 16:57:55 [employer] Taina Germain, DO, FACP CPT-43625 Ofc Vst, Est Level III 20:30:19 CDT Taina Germain, DO, FACP CPT-24254 Ofc Vst, Est Level III 19:28:47 CDT Taina Germain, DO, FACP CPT-60562 Ofc Vst, Est Level IV 19:13:50 CDT Tainarussell Germain, DO, FACP CPT-82329 Ofc Vst, Est Level IV 12:14:27 [employer] Taina Germain, DO, FACP CPT-51094 Ofc Vst, Est Level III 21:19:07 CDT Tainarussell Germain, DO, FACP CPT-69833 Ofc Vst, Est Level IV 13:12:49 CDT Taina Valentine Reganner Taina Valdez Jessa, DO, FACP CPT-60802 Ofc Vst, Est Level III 14:41:26 CDT Taina Valentine Reganner Taina Valdez Jessa, DO, FACP CPT-45291 Ofc Vst, Est Level IV 15:17:01 CDT Taina Valentine Jessa Tainarussell Germain, DO, FACP CPT-56739 Ofc Vst, Est Level III 16:02:16 CDT Taina Valentine Reganner Taina José Miguel Jessa, DO, FACP CPT-88732 Ofc Vst, Est Level V 21:51:11 CDT Taina Valentine Reganner Taina Valdez Jessa, DO, FACP CPT-95159 Ofc Vst, Est Level IV 13:07:29 CDT Tainarussell Grijalva Germain Tainarussell Germain, DO, FACP CPT-55306 Ofc Vst, Est Level III 13:03:11 CDT Tainarussell Reganner Taina José Miguel Jessa, DO, FACP CPT-53295 Ofc Vst, Est Level III 15:13:37 [employer] Taina Grijalva Jessa Germain, DO, FACP Procedures Code Procedure Name Date Entry Date Standard Description CPT-70151 Preventive, Est, (40-64) 20:40:07 CDT
--- OUTSIDE RECORDS SUMMARY | 2018-10-13 09:30 | XMS REPORT | Clinical Summary ---
Author Author hilario vazquez [place], [place] [address] Phone Unavailable Allergies, Adverse Reactions, Alerts Allergy Name Reaction Description Start Date Severity Status Provider No Known Allergies Taina Germain Conditions or Problems Problem Name Problem Code Onset Date Status Entry Date Provider Comment Standard Description Annotate ACUTE MYELOID LEUKEMIA IN RELAPSE 205.02 Active Taina Germain ACUTE MYELOID LEUKEMIA, IN RELAPSE CHRONIC MONOCYTIC LEUKEMIA IN RELAPSE 206.12 Active Taina Germain CHRONIC MONOCYTIC LEUKEMIA, IN RELAPSE HYPERCHOLESTEROLEMIA 272.0 Active Taina Germain PURE HYPERCHOLESTEROLEMIA HYPOTHYROIDISM, PRIMARY 244.9 Active Taina Germain UNSPECIFIED HYPOTHYROIDISM VAGINITIS, ATROPHIC 627.3 Active Taina Germain POSTMENOPAUSAL ATROPHIC VAGINITIS DIARRHEA, RECURRENT 787.91 Active Taina Germain DIARRHEA GERD 530.81 Active Taina Germain ESOPHAGEAL REFLUX HYPERTRIGLYCERIDEMIA 272.1 Active Taina Germain PURE HYPERGLYCERIDEMIA LIVER FUNCTION TESTS, ABNORMAL 794.8 Active Taina Germain NONSPECIFIC ABNORMAL RESULTS OF LIVER FUNCTION STUDY WELL WOMAN V70.0 Active Taina Germain ROUTINE GENERAL MEDICAL EXAMINATION AT HEALTH CARE FACILITY Medication List Medication Instructions Start Date Stop Date Generic Name NDC Status Provider Patient Instruction ZOFRAN ODT 8 MG TBDP 1 PO Q6hrs prn nausea ONDANSETRON 06050511803 Active Kateryna Villalpando LOMOTIL 2.5-0.025 MG TABS 1 PO TID prn DIPHENOXYLATE-ATROPINE 85327810445 Active Kateryna Villalpando LANSOPRAZOLE 30 MG CPDR 1 PO daily LANSOPRAZOLE 99474719666 Active Kateryna Villalpando SYNTHROID 200 MCG TABS 1 PO daily LEVOTHYROXINE SODIUM 08214931420 Active Kateryna Villalpando VITAMINS PLUS TABS 1 PO daily VIT-FE FUMARATE-FA TABS 90306700932 Active Taina Germain ALBUTEROL SULFATE 0.083 % NEBU SOLN 1 treatment TID prn ALBUTEROL SULFATE 79683977489 Active Taina Germain ZITHROMAX Z-STEPHON 250 MG TABS as directed AZITHROMYCIN 80798160507 Active Taina Germain SANDOSTATIN LAR DEPOT 10 MG KIT 1 injection monthly OCTREOTIDE ACETATE 66595464984 Active Taina Germain URSODIOL 300 MG CAPS 1 po TID URSODIOL 82058673869 Active Kateryna Villalpando LUVENA VAGINAL MOISTURIZER GEL use in vagina every third day VAGINAL MOISTURIZER 93615201206 Active Taina Germain ESTRACE 0.1 MG/GM CREA Apply 1/2 gram vaginally twice a week ESTRADIOL 05011637017 Active Kateryna Villalpando LIPITOR 40 MG TAB 1 po daily ATORVASTATIN CALCIUM 21613424304 Active Kateryna Villalpando GLEEVEC 400 MG TABS 1/2 tab PO QD IMATINIB MESYLATE 72272569020 Active Taina Germain VALTREX 1 GM TABS 1 PO BID for 5 days prn cold sores VALACYCLOVIR HCL 09581029978 Active Kateryna Villalpando Immunizations Vaccine Administration Date Value Standard Description Influenza vaccine 2013 done influenza virus vaccine, unspecified formulation Vital Signs Date Name Value Unit Range Description blood pressure, diastolic 70 mm[Hg] BP matute blood pressure, systolic 118 mm[Hg] BP sys respiratory rate E&M 14 /min Resp rate blood pressure, diastolic 78 mm[Hg] BP matute blood pressure, systolic 118 mm[Hg] BP sys pulse rate E&M 60 /min Heart rate respiratory rate E&M 14 /min Resp rate temperature E&M 98.6 [degF] Body temperature weight E&M 162 [lb_av] Weight Measured blood pressure, diastolic 60 mm[Hg] BP matute blood pressure, systolic 106 mm[Hg] BP sys pulse rate E&M 80 /min Heart rate respiratory rate E&M 14 /min Resp rate weight E&M 165 [lb_av] Weight Measured blood pressure, diastolic 82 mm[Hg] BP matute blood pressure, systolic 118 mm[Hg] BP sys pulse rate E&M 76 /min Heart rate respiratory rate E&M 14 /min Resp rate blood pressure, diastolic 64 mm[Hg] BP matute blood pressure, systolic 118 mm[Hg] BP sys pulse rate E&M 64 /min Heart rate respiratory rate E&M 14 /min Resp rate temperature E&M 97.9 [degF] Body temperature weight E&M 170 [lb_av] Weight Measured Diagnostic Results Date Name Value Unit Range Description Clinical Lists Update: CBC,CMP - Chemistry Estimated Glomerular Filtration Rate (calc) 49 mL/min/1.73m2 albumin, serum 4.4 g/dL Estimated Glomerular Filtration Rate (calc) 57 mL/min/1.73m2 glucose, plasma fasting 149 mg/dL glucose, plasma fasting 98 mg/dL glucose, plasma fasting 104 mg/dL anion gap, serum 13 anion gap, serum 17 anion gap, serum 14 sodium, serum 140 mmol/L sodium, serum 139 mmol/L sodium, serum 138 mmol/L bilirubin, serum, total 0.2 mg/dL bilirubin, serum, total 0.4 mg/dL bilirubin, serum, total 0.4 mg/dL alanine aminotransferase (SGPT), serum 34 U/L alanine aminotransferase (SGPT), serum 48 U/L alanine aminotransferase (SGPT), serum 48 U/L aspartate aminotransferase (SGOT), serum 40 U/L aspartate aminotransferase (SGOT), serum 56 U/L aspartate aminotransferase (SGOT), serum 56 U/L protein, total, serum 6.9 g/dL protein, total, serum 7.5 g/dL protein, total, serum 7.5 g/dL potassium, serum 4.1 mmol/L potassium, serum 4.5 mmol/L potassium, serum 4.3 mmol/L bilirubin, serum, direct 0.1 mg/dL bilirubin, serum, direct 0.1 mg/dL creatinine, serum 1.16 mg/dL creatinine, serum 1.01 mg/dL creatinine, serum 1.02 mg/dL carbon dioxide, venous blood 27 mmol/L carbon dioxide, venous blood 25 mmol/L carbon dioxide, venous blood 26 mmol/L chloride, serum 104 mmol/L chloride, serum 102 mmol/L chloride, serum 102 mmol/L calcium, serum 9.5 mg/dL calcium, serum 9.8 mg/dL calcium, serum 10.1 mg/dL urea nitrogen, blood 13 mg/dL urea nitrogen, blood 17 mg/dL urea nitrogen, blood 14 mg/dL alkaline phosphatase, serum 101 U/L alkaline phosphatase, serum 104 U/L alkaline phosphatase, serum 98 U/L albumin, serum 4.1 g/dL albumin, serum 4.2 g/dL Estimated Glomerular Filtration Rate (calc) 58 mL/min/1.73m2 Clinical Lists Update: CBC,CMP - Hematology platelet count 461 10*3/mm3 hemoglobin, blood 9.1 g/dL hemoglobin, blood 11.0 g/dL hemoglobin, blood 12.2 g/dL hematocrit, blood 28.9 % hematocrit, blood 34.1 % hematocrit, blood 37.5 % red blood cell distribution width 13.8 % red blood cell distribution width 16.9 % red blood cell distribution width 14.9 % mean corpuscular volume, RBC 100.7 fL mean corpuscular volume, RBC 99.4 fL mean corpuscular volume, RBC 102.5 fL leukocyte count, blood 7.54 10*3/mm3 leukocyte count, blood 6.33 10*3/mm3 leukocyte count, blood 5.91 10*3/mm3 erythrocyte (RBC) count 2.87 10*6/mm3 erythrocyte (RBC) count 3.43 10*6/mm3 erythrocyte (RBC) count 3.66 10*6/mm3 platelet count 515 10*3/mm3 platelet count 412 10*3/mm3 Clinical Lists Update: CBC,CMP,BILI DIRECT - Chemistry urea nitrogen, blood 13 mg/dL calcium, serum 9.7 mg/dL albumin, serum 4.2 g/dL alkaline phosphatase, serum 98 U/L chloride, serum 104 mmol/L carbon dioxide, venous blood 27 mmol/L creatinine, serum 1.08 mg/dL potassium, serum 4.3 mmol/L protein, total, serum 6.3 g/dL aspartate aminotransferase (SGOT), serum 53 U/L Estimated Glomerular Filtration Rate (calc) 54 mL/min/1.73m2 glucose, plasma fasting 101 mg/dL anion gap, serum 11 sodium, serum 138 mmol/L bilirubin, serum, total 0.4 mg/dL alanine aminotransferase (SGPT), serum 51 U/L Clinical Lists Update: CBC,CMP,BILI DIRECT - Hematology hematocrit, blood 32.7 % hemoglobin, blood 10.9 g/dL platelet count 321 10*3/mm3 erythrocyte (RBC) count 3.00 10*6/mm3 leukocyte count, blood 6.48 10*3/mm3 mean corpuscular volume, RBC 109.0 fL red blood cell distribution width 13.5 % Clinical Lists Update: CBC,CMP,Bili Direct - Chemistry calcium, serum 9.3 mg/dL calcium, serum 8.9 mg/dL calcium, serum 94 mg/dL calcium, serum 9.7 mg/dL urea nitrogen, blood 12 mg/dL urea nitrogen, blood 11 mg/dL urea nitrogen, blood 12 mg/dL urea nitrogen, blood 15 mg/dL alkaline phosphatase, serum 95 U/L alkaline phosphatase, serum 90 U/L alkaline phosphatase, serum 100 U/L alkaline phosphatase, serum 106 U/L albumin, serum 4.1 g/dL albumin, serum 3.9 g/dL albumin, serum 4.0 g/dL albumin, serum 4.2 g/dL Estimated Glomerular Filtration Rate (calc) 58 mL/min/1.73m2 Estimated Glomerular Filtration Rate (calc) 64 mL/min/1.73m2 Estimated Glomerular Filtration Rate (calc) 59 mL/min/1.73m2 Estimated Glomerular Filtration Rate (calc) 61 mL/min/1.73m2 glucose, plasma fasting 108 mg/dL glucose, plasma fasting 110 mg/dL glucose, plasma fasting 94 mg/dL glucose, plasma fasting 115 mg/dL anion gap, serum 15 anion gap, serum 12 anion gap, serum 16 anion gap, serum 14 sodium, serum 140 mmol/L sodium, serum 140 mmol/L sodium, serum 140 mmol/L sodium, serum 139 mmol/L bilirubin, serum, total 0.2 mg/dL bilirubin, serum, total 0.2 mg/dL bilirubin, serum, total 0.3 mg/dL bilirubin, serum, total 0.4 mg/dL alanine aminotransferase (SGPT), serum 32 U/L alanine aminotransferase (SGPT), serum 22 U/L alanine aminotransferase (SGPT), serum 30 U/L alanine aminotransferase (SGPT), serum 34 U/L aspartate aminotransferase (SGOT), serum 37 U/L aspartate aminotransferase (SGOT), serum 27 U/L aspartate aminotransferase (SGOT), serum 38 U/L aspartate aminotransferase (SGOT), serum 37 U/L protein, total, serum 6.7 g/dL protein, total, serum 6.3 g/dL protein, total, serum 7.0 g/dL protein, total, serum 7.2 g/dL potassium, serum 4.2 mmol/L potassium, serum 4.1 mmol/L potassium, serum 4.4 mmol/L potassium, serum 4.2 mmol/L bilirubin, serum, direct 0.1 mg/dL bilirubin, serum, direct 0.1 mg/dL bilirubin, serum, direct 0.1 mg/dL creatinine, serum 1.01 mg/dL creatinine, serum 0.93 mg/dL creatinine, serum 0.99 mg/dL creatinine, serum 0.96 mg/dL carbon dioxide, venous blood 25 mmol/L carbon dioxide, venous blood 27 mmol/L carbon dioxide, venous blood 23 mmol/L carbon dioxide, venous blood 26 mmol/L chloride, serum 104 mmol/L chloride, serum 105 mmol/L chloride, serum 105 mmol/L chloride, serum 103 mmol/L Clinical Lists Update: CBC,CMP,Bili Direct - Hematology red blood cell distribution width 14.4 % red blood cell distribution width 16.3 % red blood cell distribution width 17.6 % red blood cell distribution width 16.1 % mean corpuscular volume, RBC 97.7 fL mean corpuscular volume, RBC 98.5 fL mean corpuscular volume, RBC 98.1 fL mean corpuscular volume, RBC 97.4 fL leukocyte count, blood 6.70 10*3/mm3 leukocyte count, blood 5.48 10*3/mm3 leukocyte count, blood 10.93 10*3/mm3 leukocyte count, blood 6.66 10*3/mm3 erythrocyte (RBC) count 2.64 10*6/mm3 erythrocyte (RBC) count 2.70 10*6/mm3 erythrocyte (RBC) count 3.12 10*6/mm3 erythrocyte (RBC) count 3.48 10*6/mm3 platelet count 511 10*3/mm3 platelet count 485 10*3/mm3 platelet count 504 10*3/mm3 platelet count 483 10*3/mm3 hemoglobin, blood 8.0 g/dL hemoglobin, blood 8.2 g/dL hemoglobin, blood 9.6 g/dL hemoglobin, blood 10.8 g/dL hematocrit, blood 25.8 % hematocrit, blood 26.6 % hematocrit, blood 30.6 % hematocrit, blood 33.9 % Clinical Lists Update: CBC,CMP,Bili Direct DR LEDEZMA LABS - Chemistry aspartate aminotransferase (SGOT), serum 48 U/L potassium, serum 4.2 mmol/L alanine aminotransferase (SGPT), serum 48 U/L albumin, serum 4.3 g/dL urea nitrogen, blood 17 mg/dL alkaline phosphatase, serum 100 U/L calcium, serum 9.8 mg/dL Estimated Glomerular Filtration Rate (calc) 48 mL/min/1.73m2 chloride, serum 104 mmol/L glucose, plasma fasting 108 mg/dL carbon dioxide, venous blood 26 mmol/L anion gap, serum 14 creatinine, serum 1.20 mg/dL sodium, serum 140 mmol/L bilirubin, serum, direct 0.2 mg/dL bilirubin, serum, total 0.7 mg/dL protein, total, serum 6.7 g/dL Clinical Lists Update: CBC,CMP,Bili Direct DR LEDEZMA [facility] - Hematology hematocrit, blood 34.5 % hemoglobin, blood 11.2 g/dL erythrocyte (RBC) count 3.13 10*6/mm3 platelet count 454 10*3/mm3 leukocyte count, blood 7.37 10*3/mm3 mean corpuscular volume, RBC 110.2 fL red blood cell distribution width 13.8 % Clinical Lists Update: CBC,CMP,Bili Direct DR LEDEZMA [facility] - Chemistry potassium, serum 4.5 mmol/L aspartate aminotransferase (SGOT), serum 29 U/L bilirubin, serum, direct 0.1 mg/dL anion gap, serum 13 creatinine, serum 0.85 mg/dL glucose, plasma fasting 98 mg/dL carbon dioxide, venous blood 27 mmol/L Estimated Glomerular Filtration Rate (calc) 71 mL/min/1.73m2 chloride, serum 106 mmol/L sodium, serum 141 mmol/L alanine aminotransferase (SGPT), serum 20 U/L protein, total, serum 6.6 g/dL bilirubin, serum, total 0.2 mg/dL albumin, serum 3.8 g/dL alkaline phosphatase, serum 102 U/L urea nitrogen, blood 14 mg/dL calcium, serum 9.3 mg/dL Clinical Lists Update: CBC,CMP,Bili Direct DR LEDEZMA LAB[facility] - Hematology erythrocyte (RBC) count 2.90 10*6/mm3 red blood cell distribution width 16.5 % platelet count 529 10*3/mm3 mean corpuscular volume, RBC 97.9 fL hemoglobin, blood 8.7 g/dL leukocyte count, blood 6.52 10*3/mm3 hematocrit, blood 28.4 % Clinical Lists Update: CBC,CMP,Chol,Trig,TSH,Free T4 - Chemistry Estimated Glomerular Filtration Rate (calc) 54 mL/min/1.73m2 glucose, plasma fasting 114 mg/dL anion gap, serum 15 sodium, serum 139 mmol/L triglyceride, serum, fasting 475 mg/dL bilirubin, serum, total 0.3 mg/dL alanine aminotransferase (SGPT), serum 37 U/L aspartate aminotransferase (SGOT), serum 48 U/L protein, total, serum 6.9 g/dL potassium, serum 4.5 mmol/L thyroid stimulating hormone, serum 4.30 u[iU]/mL thyroxine, serum, free 1.02 ng/dL creatinine, serum 1.08 mg/dL carbon dioxide, venous blood 26 mmol/L cholesterol, serum 210 mg/dL chloride, serum 103 mmol/L calcium, serum 9.5 mg/dL urea nitrogen, blood 16 mg/dL alkaline phosphatase, serum 104 U/L albumin, serum 4.2 g/dL Clinical Lists Update: CBC,CMP,Chol,Trig,TSH,Free T4 - Hematology erythrocyte (RBC) count 2.94 10*6/mm3 platelet count 498 10*3/mm3 hemoglobin, blood 9.9 g/dL leukocyte count, blood 6.49 10*3/mm3 red blood cell distribution width 13.0 % mean corpuscular volume, RBC 105.8 fL hematocrit, blood 31.1 % Office Visit: Dr Germain's Check Up: [...]
--- OUTSIDE RECORDS SUMMARY | 2018-10-13 09:30 | XMS REPORT | Clinical Summary ---
Author Author hilario vazquez DO, FACP Address [place] [phone] Phone Unavailable Allergies, Adverse Reactions, Alerts Allergy [...] TBDP 1 PO Q6hrs prn nausea ONDANSETRON 08853578526 Active Kateryna Villalpando LOMOTIL 2.5-0.025 MG TABS 1 PO TID prn DIPHENOXYLATE-ATROPINE 26932856482 Active Kateryna Villalpando LANSOPRAZOLE 30 MG CPDR 1 PO daily LANSOPRAZOLE 29513312614 Active Kateryna Villalpando SYNTHROID 200 MCG TABS 1 PO daily LEVOTHYROXINE SODIUM 51458540781 Active Kateryna Villalpando VITAMINS PLUS TABS 1 PO daily VIT-FE FUMARATE-FA TABS 44433735374 Active Taina Germain ALBUTEROL SULFATE 0.083 % NEBU SOLN 1 treatment TID prn ALBUTEROL SULFATE 21595797434 Active Taina Germain ZITHROMAX Z-STEPHON 250 MG TABS as directed AZITHROMYCIN 72725630809 Active Taina Germain SANDOSTATIN LAR DEPOT 10 MG KIT 1 injection monthly OCTREOTIDE ACETATE 95446195415 Active Taina Germain URSODIOL 300 MG CAPS 1 po TID URSODIOL 28402190470 Active Kateryna Villalpando LUVENA VAGINAL MOISTURIZER GEL use in vagina every third day VAGINAL MOISTURIZER 91167957680 Active Taina Germain ESTRACE 0.1 MG/GM CREA Apply 1/2 gram vaginally twice a week ESTRADIOL 60434650598 Active Kateryna Villalpando LIPITOR 40 MG TAB 1 po daily ATORVASTATIN CALCIUM 89527310681 Active Kateryna Villalpando GLEEVEC 400 MG TABS 1/2 tab PO QD IMATINIB MESYLATE 60192256676 Active Taina Germain VALTREX 1 GM TABS 1 PO BID for 5 days prn cold sores VALACYCLOVIR HCL 30972381724 Active Kateryna Villalpando Immunizations Vaccine Administration Date [...]
--- OUTSIDE RECORDS SUMMARY | 2018-10-13 09:31 | XMS REPORT | Clinical Summary ---
Author Author hilario vazquez DO, [place] [address] Phone Unavailable Allergies, Adverse Reactions, Alerts Allergy [...] TBDP 1 PO Q6hrs prn nausea ONDANSETRON 01872092497 Active Kateryna Villalpando LOMOTIL 2.5-0.025 MG TABS 1 PO TID prn DIPHENOXYLATE-ATROPINE 80394288494 Active Kateryna Villalpando LANSOPRAZOLE 30 MG CPDR 1 PO daily LANSOPRAZOLE 79130428608 Active Kateryna Villalpando SYNTHROID 200 MCG TABS 1 PO daily LEVOTHYROXINE SODIUM 65412295516 Active Kateryna Villalpando VITAMINS PLUS TABS 1 PO daily VIT-FE FUMARATE-FA TABS 31987456570 Active Taina Germain ALBUTEROL SULFATE 0.083 % NEBU SOLN 1 treatment TID prn ALBUTEROL SULFATE 97513553801 Active Taina Germain ZITHROMAX Z-STEPHON 250 MG TABS as directed AZITHROMYCIN 70250310707 Active Taina Germain SANDOSTATIN LAR DEPOT 10 MG KIT 1 injection monthly OCTREOTIDE ACETATE 45486197602 Active Taina Germain URSODIOL 300 MG CAPS 1 po TID URSODIOL 31941319417 Active Kateryna Villalpando LUVENA VAGINAL MOISTURIZER GEL use in vagina every third day VAGINAL MOISTURIZER 77739860733 Active Taina Germain ESTRACE 0.1 MG/GM CREA Apply 1/2 gram vaginally twice a week ESTRADIOL 96005454102 Active Kateryna Villalpando LIPITOR 40 MG TAB 1 po daily ATORVASTATIN CALCIUM 77659937804 Active Kateryna Villalpando GLEEVEC 400 MG TABS 1/2 tab PO QD IMATINIB MESYLATE 52769763461 Active Taina Germain VALTREX 1 GM TABS 1 PO BID for 5 days prn cold sores VALACYCLOVIR HCL 19633058107 Active Kateryna Villalpando Immunizations Vaccine Administration Date [...]
--- OUTSIDE RECORDS SUMMARY | 2018-10-13 09:32 | XMS REPORT | Clinical Summary ---
Author Author hilario vazquez DO, [place] [address] Phone Unavailable Allergies, Adverse Reactions, Alerts Allergy [...] NONSPECIFIC ABNORMAL RESULTS OF LIVER FUNCTION STUDY Medication List Medication Instructions Start Date Stop Date Generic Name NDC Status Provider Patient Instruction ZOFRAN ODT 8 MG TBDP 1 PO Q6hrs prn nausea ONDANSETRON 52596747487 Active Taina Germain LOMOTIL 2.5-0.025 MG TABS 1 PO TID prn DIPHENOXYLATE-ATROPINE 90491489559 Active Taina Germain GLEEVEC 400 MG TABS 1 PO daily IMATINIB MESYLATE 27154418228 Active Taina Germain LANSOPRAZOLE 30 MG CPDR 1 PO daily LANSOPRAZOLE 49319249191 Active Kateryna Villalpando SYNTHROID 200 MCG TABS 1 PO daily LEVOTHYROXINE SODIUM 69190061404 Active Kateryna Villalpando VITAMINS PLUS TABS 1 PO daily VIT-FE FUMARATE-FA TABS 42778779440 Active Taina Germain ALBUTEROL SULFATE 0.083 % NEBU SOLN 1 treatment TID prn ALBUTEROL SULFATE 49460172089 Active Taina Germain ZITHROMAX Z-STEPHON 250 MG TABS as directed AZITHROMYCIN 25082972289 Active Kateryna Villalpando SANDOSTATIN LAR DEPOT 10 MG KIT 1 injection monthly OCTREOTIDE ACETATE 30211267489 Active Taina Germain URSODIOL 300 MG CAPS 1 po TID URSODIOL 36403918922 Active Taina Germain LUVENA VAGINAL MOISTURIZER GEL use in vagina every third day VAGINAL MOISTURIZER 98666984687 Active Taina Germain ESTRACE 0.1 MG/GM CREA Apply 1/2 gram vaginally twice a week ESTRADIOL 61889552544 Active Taina Germain LIPITOR 40 MG TAB 1 po daily ATORVASTATIN CALCIUM 01729883696 Active Kateryna Villalpando CELEXA 20 MG TABS 1 PO daily CITALOPRAM HYDROBROMIDE 72774591397 Active Taina Germain Immunizations Vaccine Administration Date Value Standard Description Influenza vaccine 2013 done influenza virus vaccine, unspecified formulation Vital Signs Date Name Value Unit Range Description blood pressure, diastolic 82 mm[Hg] BP matute blood pressure, systolic 118 mm[Hg] BP sys pulse rate E&M 76 /min Heart rate respiratory rate E&M 14 /min Respiratory rate blood pressure, diastolic 64 mm[Hg] BP matute blood pressure, systolic 118 mm[Hg] BP sys pulse rate E&M 64 /min Heart rate respiratory rate E&M 14 /min Respiratory rate temperature E&M 97.9 [degF] Bdy temp weight E&M 170 [lb_av] Weight Measured blood pressure, diastolic 80 mm[Hg] BP matute blood pressure, systolic 118 mm[Hg] BP sys pulse rate E&M 60 /min Heart rate respiratory rate E&M 14 /min Respiratory rate blood pressure, diastolic 60 mm[Hg] BP matute blood pressure, systolic 112 mm[Hg] BP sys pulse rate E&M 76 /min Heart rate respiratory rate E&M 14 /min Respiratory rate weight E&M 162 [lb_av] Weight Measured blood pressure, diastolic 60 mm[Hg] BP matute blood pressure, systolic 115 mm[Hg] BP sys pulse rate E&M 60 /min Heart rate respiratory rate E&M 14 /min Respiratory rate weight E&M 163 [lb_av] Weight Measured blood pressure, diastolic 80 mm[Hg] BP matute blood pressure, systolic 140 mm[Hg] BP sys pulse rate E&M 60 /min Heart rate respiratory rate E&M 14 /min Respiratory rate temperature E&M 97.8 [degF] Bdy temp weight E&M 167 [lb_av] Weight Measured blood pressure, diastolic 72 mm[Hg] BP matute blood pressure, systolic 116 mm[Hg] BP sys pulse rate E&M 60 /min Heart rate respiratory rate E&M 16 /min Respiratory rate weight E&M 166 [lb_av] Weight Measured blood pressure, diastolic 75 mm[Hg] BP matute blood pressure, systolic 130 mm[Hg] BP sys pulse rate E&M 60 /min Heart rate respiratory rate E&M 14 /min Respiratory rate weight E&M 171 [lb_av] Weight Measured Diagnostic Results Date Name Value Unit Range Description Clinical Lists Update: CBC,CMP - Chemistry Estimated Glomerular Filtration Rate (calc) 49 mL/min/1.73m2 glucose, plasma fasting 98 mg/dL albumin, serum 4.1 g/dL albumin, serum 4.3 g/dL alkaline phosphatase, serum 101 U/L alkaline phosphatase, serum 86 U/L urea nitrogen, blood 13 mg/dL urea nitrogen, blood 17 mg/dL calcium, serum 9.5 mg/dL calcium, serum 9.9 mg/dL chloride, serum 104 mmol/L chloride, serum 99 mmol/L carbon dioxide, venous blood 27 mmol/L carbon dioxide, venous blood 25 mmol/L creatinine, serum 1.16 mg/dL glucose, plasma fasting 149 mg/dL anion gap, serum 16 anion gap, serum 13 sodium, serum 136 mmol/L sodium, serum 140 mmol/L bilirubin, serum, total 0.5 mg/dL bilirubin, serum, total 0.2 mg/dL alanine aminotransferase (SGPT), serum 41 U/L alanine aminotransferase (SGPT), serum 34 U/L aspartate aminotransferase (SGOT), serum 41 U/L aspartate aminotransferase (SGOT), serum 40 U/L protein, total, serum 6.8 g/dL protein, total, serum 6.9 g/dL potassium, serum 4.3 mmol/L potassium, serum 4.1 mmol/L bilirubin, serum, direct 0.1 mg/dL creatinine, serum 1.09 mg/dL Clinical Lists Update: CBC,[facility] - Hematology platelet count 378 10*3/mm3 erythrocyte (RBC) count 2.87 10*6/mm3 erythrocyte (RBC) count 3.44 10*6/mm3 leukocyte count, blood 7.54 10*3/mm3 leukocyte count, blood 9.47 10*3/mm3 mean corpuscular volume, RBC 100.7 fL hematocrit, blood 28.9 % red blood cell distribution width 13.8 % red blood cell distribution width 17.1 % hematocrit, blood 35.9 % hemoglobin, blood 9.1 g/dL hemoglobin, blood 12.4 g/dL platelet count 515 10*3/mm3 mean corpuscular volume, RBC 104.4 fL Clinical Lists Update: CBC,[facility] - Chemistry glucose, plasma fasting 94 mg/dL sodium, serum 135 mmol/L alkaline phosphatase, serum 2.5 U/L urea nitrogen, blood 12 mg/dL calcium, serum 9.1 mg/dL chloride, serum 101 mmol/L carbon dioxide, venous blood 28.0 mmol/L creatinine, serum 1.1 mg/dL bilirubin, serum, total 0.4 mg/dL alanine aminotransferase (SGPT), serum 60 U/L aspartate aminotransferase (SGOT), serum 52 U/L potassium, serum 4.2 mmol/L bilirubin, serum, direct 0.0 mg/dL Clinical Lists Update: CBC,[facility] - Hematology red blood cell distribution width 16.3 % hemoglobin, blood 12.7 g/dL platelet count 342 10*3/mm3 erythrocyte (RBC) count 3.81 10*6/mm3 leukocyte count, blood 6.5 10*3/mm3 mean corpuscular volume, RBC 103 fL hematocrit, blood 39 % Clinical Lists Update: CBC,CMP,[facility] - Chemistry calcium, serum 9.7 mg/dL chloride, serum 104 mmol/L alkaline phosphatase, serum 98 U/L albumin, serum 4.2 g/dL urea nitrogen, blood 13 mg/dL carbon dioxide, venous blood 27 mmol/L creatinine, serum 1.08 mg/dL potassium, serum 4.3 mmol/L protein, total, serum 6.3 g/dL aspartate aminotransferase (SGOT), serum 53 U/L alanine aminotransferase (SGPT), serum 51 U/L Estimated Glomerular Filtration Rate (calc) 54 mL/min/1.73m2 glucose, plasma fasting 101 mg/dL anion gap, serum 11 sodium, serum 138 mmol/L bilirubin, serum, total 0.4 mg/dL Clinical Lists Update: CBC,CMP,[facility] - Hematology hematocrit, blood 32.7 % hemoglobin, blood 10.9 g/dL platelet count 321 10*3/mm3 erythrocyte (RBC) count 3.00 10*6/mm3 leukocyte count, blood 6.48 10*3/mm3 mean corpuscular volume, RBC 109.0 fL red blood cell distribution width 13.5 % Clinical Lists Update: CBC,CMP,[facility] - Chemistry calcium, serum 9.3 mg/dL urea nitrogen, blood 12 mg/dL urea nitrogen, blood 16 mg/dL urea nitrogen, blood 13 mg/dL urea nitrogen, blood 12 mg/dL alkaline phosphatase, serum 112 U/L alkaline phosphatase, serum 99 U/L alkaline phosphatase, serum 100 U/L alkaline phosphatase, serum 95 U/L albumin, serum 4.2 g/dL albumin, serum 4.4 g/dL albumin, serum 4.2 g/dL albumin, serum 4.1 g/dL Estimated Glomerular Filtration Rate (calc) 54 mL/min/1.73m2 Estimated Glomerular Filtration Rate (calc) 58 mL/min/1.73m2 glucose, plasma fasting 104 mg/dL glucose, plasma fasting 96 mg/dL glucose, plasma fasting 93 mg/dL glucose, plasma fasting 108 mg/dL anion gap, serum 13 anion gap, serum 16 anion gap, serum 17 anion gap, serum 15 sodium, serum 140 mmol/L sodium, serum 141 mmol/L sodium, serum 142 mmol/L sodium, serum 140 mmol/L bilirubin, serum, total 0.4 mg/dL bilirubin, serum, total 0.6 mg/dL bilirubin, serum, total 0.7 mg/dL bilirubin, serum, total 0.2 mg/dL alanine aminotransferase (SGPT), serum 103 U/L alanine aminotransferase (SGPT), serum 123 U/L alanine aminotransferase (SGPT), serum 44 U/L alanine aminotransferase (SGPT), serum 32 U/L aspartate aminotransferase (SGOT), serum 85 U/L aspartate aminotransferase (SGOT), serum 204 U/L aspartate aminotransferase (SGOT), serum 43 U/L aspartate aminotransferase (SGOT), serum 37 U/L protein, total, serum 7.1 g/dL protein, total, serum 7.0 g/dL protein, total, serum 6.2 g/dL protein, total, serum 6.7 g/dL potassium, serum 4.3 mmol/L potassium, serum 4.2 mmol/L potassium, serum 3.5 mmol/L potassium, serum 4.2 mmol/L bilirubin, serum, direct 0.2 mg/dL bilirubin, serum, direct 0.2 mg/dL bilirubin, serum, direct 0.1 mg/dL creatinine, serum 0.99 mg/dL creatinine, serum 0.99 mg/dL creatinine, serum 1.08 mg/dL creatinine, serum 1.01 mg/dL carbon dioxide, venous blood 25 mmol/L carbon dioxide, venous blood 25 mmol/L carbon dioxide, venous blood 24 mmol/L carbon dioxide, venous blood 25 mmol/L chloride, serum 106 mmol/L chloride, serum 104 mmol/L chloride, serum 105 mmol/L chloride, serum 104 mmol/L calcium, serum 10.0 mg/dL calcium, serum 10.1 mg/dL calcium, serum 9.5 mg/dL Clinical Lists Update: CBC,CMP,[facility] - Hematology red blood cell distribution width 16.5 % red blood cell distribution width 17.2 % red blood cell distribution width 13.7 % red blood cell distribution width 14.4 % mean corpuscular volume, RBC 98.4 fL mean corpuscular volume, RBC 103.0 fL mean corpuscular volume, RBC 107.6 fL mean corpuscular volume, RBC 97.7 fL leukocyte count, blood 6.04 10*3/mm3 leukocyte count, blood 9.23 10*3/mm3 leukocyte count, blood 11.07 10*3/mm3 leukocyte count, blood 6.70 10*3/mm3 erythrocyte (RBC) count 3.67 10*6/mm3 erythrocyte (RBC) count 3.31 10*6/mm3 erythrocyte (RBC) count 3.15 10*6/mm3 erythrocyte (RBC) count 2.64 10*6/mm3 platelet count 345 10*3/mm3 platelet count 356 10*3/mm3 platelet count 334 10*3/mm3 platelet count 511 10*3/mm3 hemoglobin, blood 11.8 g/dL hemoglobin, blood 11.5 g/dL hemoglobin, blood 11.5 g/dL hemoglobin, blood 8.0 g/dL hematocrit, blood 36.1 % hematocrit, blood 34.1 % hematocrit, blood 33.9 % hematocrit, blood 25.8 % Clinical Lists Update: CBC,CMP,[facility] - Chemistry potassium, serum 4.2 mmol/L creatinine, serum 1.20 mg/dL bilirubin, serum, direct 0.2 mg/dL aspartate aminotransferase (SGOT), serum 48 U/L Estimated Glomerular Filtration Rate (calc) 48 mL/min/1.73m2 albumin, serum 4.3 g/dL glucose, plasma fasting 108 mg/dL alkaline phosphatase, serum 100 U/L anion gap, serum 14 urea nitrogen, blood 17 mg/dL sodium, serum 140 mmol/L calcium, serum 9.8 mg/dL chloride, serum 104 mmol/L bilirubin, serum, total 0.7 mg/dL carbon dioxide, venous blood 26 mmol/L alanine aminotransferase (SGPT), serum 48 U/L protein, total, serum 6.7 g/dL Clinical Lists Update: CBC,CMP,[facility] - Hematology hematocrit, blood 34.5 % hemoglobin, blood 11.2 g/dL leukocyte count, blood 7.37 10*3/mm3 erythrocyte (RBC) count 3.13 10*6/mm3 platelet count 454 10*3/mm3 mean corpuscular volume, RBC 110.2 fL red blood cell distribution width 13.8 % Clinical Lists Update: CBC,CMP,Chol,Trig, Bili D - Chemistry creatinine, serum 1.15 mg/dL potassium, serum 4.6 mmol/L carbon dioxide, venous blood 26 mmol/L alanine aminotransferase (SGPT), serum 42 U/L cholesterol, serum 170 mg/dL chloride, serum 105 mmol/L bilirubin, serum, total 0.5 mg/dL calcium, serum 9.9 mg/dL triglyceride, serum, fasting 279 mg/dL urea nitrogen, blood 17 mg/dL sodium, serum 142 mmol/L alkaline phosphatase, serum 115 U/L anion gap, serum 16 albumin, serum 4.4 g/dL glucose, plasma fasting 110 mg/dL protein, total, serum 7.1 g/dL bilirubin, serum, direct 0.2 mg/dL aspartate aminotransferase (SGOT), serum 35 U/L Clinical Lists Update: CBC,CMP,Chol,Trig, Bili D - Hematology erythrocyte (RBC) count 3.79 10*6/mm3 platelet count 406 10*3/mm3 hemoglobin, blood 11.9 g/dL hematocrit, blood 36.6 % red blood cell distribution width 16.8 % mean corpuscular volume, RBC 96.6 fL leukocyte count, blood 8.45 10*3/mm3 Clinical Lists Update: CBC,CMP,Chol,Trig,TSH,Free T4 - Chemistry glucose, plasma fasting 114 mg/dL chloride, serum 103 mmol/L albumin, serum 4.2 g/dL alkaline phosphatase, serum 104 U/L urea nitrogen, blood 16 mg/dL calcium, serum 9.5 mg/dL anion gap, serum 15 sodium, serum [...] blood 26 mmol/L cholesterol, serum 210 mg/dL Estimated Glomerular Filtration Rate (calc) 54 mL/min/1.73m2 Clinical Lists Update: CBC,CMP,Chol,Trig,TSH,Free T4 - Hematology mean corpuscular volume, RBC 105.8 fL red blood cell distribution width 13.0 % hematocrit, blood 31.1 % hemoglobin, blood 9.9 g/dL leukocyte count, blood 6.49 10*3/mm3 erythrocyte (RBC) count 2.94 10*6/mm3 platelet count 498 10*3/mm3 Office Visit: Dr Germain's Check Up: Established Patient Visit - Chemistry chloride, serum 103 mmol/L calcium, serum 98 mg/dL calcium, serum 9.7 mg/dL calcium, serum 9.3 mg/dL calcium, serum 9.3 mg/dL calcium, serum 9.5 mg/dL urea nitrogen, blood 17 mg/dL urea nitrogen, blood 20 mg/dL urea nitrogen, blood 16 mg/dL urea nitrogen, blood 13 mg/dL urea nitrogen, blood 15 mg/dL alkaline phosphatase, serum 115 U/L alkaline phosphatase, serum 79 U/L alkaline phosphatase, serum 87 U/L alkaline phosphatase, serum 110 U/L albumin, serum 4.2 g/dL albumin, serum 4.2 g/dL albumin, serum 3.8 g/dL Estimated Glomerular Filtration Rate (calc) 64 mL/min/1.73m2 glucose, plasma fasting 100 mg/dL glucose, plasma fasting 86 mg/dL glucose, plasma fasting 81 mg/dL glucose, plasma fasting 97 mg/dL glucose, plasma fasting 107 mg/dL very low density lipoproteins 260 mg/dL cholesterol/HDL ratio, serum 10.1 anion gap, serum 16 anion gap, serum 11 anion gap, serum 11 anion gap, serum 12 anion gap, serum 16 sodium, serum 141 mmol/L sodium, serum 132 mmol/L sodium, serum 133 mmol/L sodium, serum 137 mmol/L sodium, serum 141 mmol/L triglyceride, serum, fasting 1298 mg/dL bilirubin, serum, total 0.6 mg/dL bilirubin, serum, total 0.5 mg/dL bilirubin, serum, total 0.5 mg/dL bilirubin, serum, total 0.6 mg/dL bilirubin, serum, total 0.2 mg/dL alanine aminotransferase (SGPT), serum 172 U/L alanine aminotransferase (SGPT), serum 92 U/L alanine aminotransferase (SGPT), serum 125 U/L alanine aminotransferase (SGPT), serum 47 U/L aspartate aminotransferase (SGOT), serum 136 U/L aspartate aminotransferase (SGOT), serum 54 U/L aspartate aminotransferase (SGOT), serum 102 U/L aspartate aminotransferase (SGOT), serum 37 U/L protein, total, serum 7.0 g/dL protein, total, serum 6.5 g/dL protein, total, serum 6.4 g/dL potassium, serum 4.1 mmol/L potassium, serum 3.8 mmol/L potassium, serum 3.9 mmol/L potassium, serum 3.9 mmol/L potassium, serum 4.3 mmol/L LDL cholesterol, serum 13 mg/dL thyroid stimulating hormone, serum 1.60 u[iU]/mL hemoglobin A1C, blood, as % of total hemoglobin 4.90 % HDL cholesterol, serum 30 mg/dL thyroxine, serum, free 1.04 ng/dL bilirubin, serum, direct 0.1 mg/dL bilirubin, serum, direct 0.0 mg/dL bilirubin, serum, direct 0.1 mg/dL bilirubin, serum, direct 0.1 mg/dL creatinine, serum 1.05 mg/dL creatinine, serum 1.2 mg/dL creatinine, serum 1.1 mg/dL creatinine, serum 1.0 mg/dL creatinine, serum 0.93 mg/dL carbon dioxide, venous blood 26 mmol/L carbon dioxide, venous blood 31.0 mmol/L carbon dioxide, venous blood 31.0 mmol/L carbon dioxide, venous blood 28.0 mmol/L carbon dioxide, venous blood 26 mmol/L cholesterol, serum 303 mg/dL chloride, serum 103 mmol/L chloride, serum 94 mmol/L chloride, serum 95 mmol/L chloride, serum 101 mmol/L Office Visit: Dr Germain's Check Up: Established Patient Visit - Hematology red blood cell distribution width 16.5 % hematocrit, blood 35.1 % red blood cell distribution width 17.5 % red blood cell distribution width 17.0 % red blood cell distribution width 13.8 % mean corpuscular volume, RBC 98.3 fL mean corpuscular volume, RBC 100 fL mean corpuscular volume, RBC 104 fL mean corpuscular volume, RBC 104 fL mean corpuscular volume, RBC 109.0 fL leukocyte count, blood 8.49 10*3/mm3 leukocyte count, blood 12.4 10*3/mm3 leukocyte count, blood 14.1 10*3/mm3 leukocyte count, blood 6.3 10*3/mm3 leukocyte count, blood 7.20 10*3/mm3 erythrocyte (RBC) count 3.57 10*6/mm3 erythrocyte (RBC) count 4.08 10*6/mm3 erythrocyte (RBC) count 3.84 10*6/mm3 erythrocyte (RBC) count 3.53 10*6/mm3 erythrocyte (RBC) count 3.22 10*6/mm3 platelet count 301 10*3/mm3 platelet count 382 10*3/mm3 platelet count 342 10*3/mm3 platelet count 347 10*3/mm3 platelet count 385 10*3/mm3 hemoglobin, blood 11.6 g/dL hemoglobin, blood 13.2 g/dL hemoglobin, blood 12.3 g/dL hemoglobin, blood 11.8 g/dL hemoglobin, blood 11.7 g/dL hematocrit, blood 35.1 % hematocrit, blood 41 % hematocrit, blood 40 % hematocrit, blood 37 % red blood cell distribution width 17.1 %
--- OUTSIDE RECORDS SUMMARY | 2018-10-13 09:32 | XMS REPORT | Clinical Summary ---
Author Author hilario vazquez DO, FACP Address [place] [phone] Phone Unavailable Allergies, Adverse Reactions, Alerts Allergy [...] TBDP 1 PO Q6hrs prn nausea ONDANSETRON 66669240241 Active Kateryna Villalpando LOMOTIL 2.5-0.025 MG TABS 1 PO TID prn DIPHENOXYLATE-ATROPINE 99549955892 Active Kateryna Villalpando LANSOPRAZOLE 30 MG CPDR 1 PO daily LANSOPRAZOLE 40428303106 Active Kateryna Villalpando SYNTHROID 200 MCG TABS 1 PO daily LEVOTHYROXINE SODIUM 80071677450 Active Kateryna Villalpando VITAMINS PLUS TABS 1 PO daily VIT-FE FUMARATE-FA TABS 67414023565 Active Taina Germain ALBUTEROL SULFATE 0.083 % NEBU SOLN 1 treatment TID prn ALBUTEROL SULFATE 05076636912 Active Taina Germain ZITHROMAX Z-STEPHON 250 MG TABS as directed AZITHROMYCIN 76928252542 Active Taina Germain SANDOSTATIN LAR DEPOT 10 MG KIT 1 injection monthly OCTREOTIDE ACETATE 45042277119 Active Taina Germain URSODIOL 300 MG CAPS 1 po TID URSODIOL 15724776807 Active Kateryna Villalpando LUVENA VAGINAL MOISTURIZER GEL use in vagina every third day VAGINAL MOISTURIZER 71073245222 Active Taina Germain ESTRACE 0.1 MG/GM CREA Apply 1/2 gram vaginally twice a week ESTRADIOL 04815200219 Active Kateryna Villalpando LIPITOR 40 MG TAB 1 po daily ATORVASTATIN CALCIUM 79816717544 Active Kateryna Villalpando GLEEVEC 400 MG TABS 1/2 tab PO QD IMATINIB MESYLATE 14322119296 Active Taina Germain VALTREX 1 GM TABS 1 PO BID for 5 days prn cold sores VALACYCLOVIR HCL 01636851303 Active Kateryna Villalpando Immunizations Vaccine Administration Date [...]
--- OUTSIDE RECORDS SUMMARY | 2018-10-13 09:34 | XMS REPORT | Clinical Summary ---
Author Author hilario vazquez DO, [place] [address] Phone Unavailable Allergies, Adverse Reactions, Alerts Allergy [...] TBDP 1 PO Q6hrs prn nausea ONDANSETRON 37116026567 Active Taina Germain LOMOTIL 2.5-0.025 MG TABS 1 PO TID prn DIPHENOXYLATE-ATROPINE 20988446158 Active Taina Germain GLEEVEC 400 MG TABS 1 PO daily IMATINIB MESYLATE 68418887524 Active Taina Germain LANSOPRAZOLE 30 MG CPDR 1 PO daily LANSOPRAZOLE 70796891720 Active Kateryna Villalpando SYNTHROID 200 MCG TABS 1 PO daily LEVOTHYROXINE SODIUM 87286115094 Active Kateryna Villalpando VITAMINS PLUS TABS 1 PO daily VIT-FE FUMARATE-FA TABS 14880424236 Active Taina Germain ALBUTEROL SULFATE 0.083 % NEBU SOLN 1 treatment TID prn ALBUTEROL SULFATE 18131624427 Active Taina Germain ZITHROMAX Z-STEPHON 250 MG TABS as directed AZITHROMYCIN 18171114883 Active Kateryna Villalpando SANDOSTATIN LAR DEPOT 10 MG KIT 1 injection monthly OCTREOTIDE ACETATE 85045978783 Active Taina Germain URSODIOL 300 MG CAPS 1 po TID URSODIOL 47337936871 Active Taina Germain LUVENA VAGINAL MOISTURIZER GEL use in vagina every third day VAGINAL MOISTURIZER 04703145055 Active Taina Germain ESTRACE 0.1 MG/GM CREA Apply 1/2 gram vaginally twice a week ESTRADIOL 58807960529 Active Taina Germain LIPITOR 40 MG TAB 1 po daily ATORVASTATIN CALCIUM 00302556172 Active Kateryna Villalpando Immunizations Vaccine Administration Date Value Standard Description Influenza vaccine 2013 done influenza virus vaccine, unspecified formulation Vital Signs Date Name Value Unit Range Description blood pressure, diastolic 64 mm[Hg] BP matute [...] Description Clinical Lists Update: CBC,CMP - Chemistry bilirubin, serum, direct 0.1 mg/dL anion gap, serum 16 alkaline phosphatase, serum 101 U/L alkaline phosphatase, serum 86 U/L albumin, serum 4.1 g/dL albumin, serum 4.3 g/dL glucose, plasma fasting 149 mg/dL glucose, plasma fasting 98 mg/dL Estimated Glomerular Filtration Rate (calc) 49 mL/min/1.73m2 creatinine, serum 1.16 mg/dL creatinine, serum 1.09 mg/dL carbon dioxide, venous blood 27 mmol/L carbon dioxide, venous blood 25 mmol/L chloride, serum 104 mmol/L potassium, serum 4.3 mmol/L potassium, serum 4.1 mmol/L protein, total, serum 6.8 g/dL protein, total, serum 6.9 g/dL aspartate aminotransferase (SGOT), serum 41 U/L aspartate aminotransferase (SGOT), serum 40 U/L alanine aminotransferase (SGPT), serum 41 U/L alanine aminotransferase (SGPT), serum 34 U/L sodium, serum 136 mmol/L sodium, serum 140 mmol/L anion gap, serum 13 bilirubin, serum, total 0.5 mg/dL bilirubin, serum, total 0.2 mg/dL urea nitrogen, blood 17 mg/dL urea nitrogen, blood 13 mg/dL calcium, serum 9.9 mg/dL calcium, serum 9.5 mg/dL chloride, serum 99 mmol/L Clinical Lists Update: CBC,CMP - Hematology hemoglobin, blood 9.1 g/dL hemoglobin, blood 12.4 g/dL mean corpuscular volume, RBC 100.7 fL mean corpuscular volume, RBC 104.4 fL red blood cell distribution width 13.8 % red blood cell distribution width 17.1 % platelet count 378 10*3/mm3 erythrocyte (RBC) count 3.44 10*6/mm3 leukocyte count, blood 7.54 10*3/mm3 leukocyte count, blood 9.47 10*3/mm3 hematocrit, blood 28.9 % hematocrit, blood 35.9 % platelet count 515 10*3/mm3 erythrocyte (RBC) count 2.87 10*6/mm3 Clinical Lists Update: CBC,CMP DR LEDEZ[facility] - Chemistry alanine aminotransferase (SGPT), serum 60 U/L glucose, plasma fasting 94 mg/dL creatinine, serum 1.1 mg/dL carbon dioxide, venous blood 28.0 mmol/L chloride, serum 101 mmol/L calcium, serum 9.1 mg/dL urea nitrogen, blood 12 mg/dL potassium, serum 4.2 mmol/L aspartate aminotransferase (SGOT), serum 52 U/L alkaline phosphatase, serum 2.5 U/L bilirubin, serum, direct 0.0 mg/dL bilirubin, serum, total 0.4 mg/dL sodium, serum 135 mmol/L Clinical Lists Update: CBC,CMP DR LEDEZ[facility] - Hematology hematocrit, blood 39 % mean corpuscular volume, RBC 103 fL leukocyte count, blood 6.5 10*3/mm3 red blood cell distribution width 16.3 % erythrocyte (RBC) count 3.81 10*6/mm3 platelet count 342 10*3/mm3 hemoglobin, blood 12.7 g/dL Clinical Lists Update: CBC,CMP,BILI DIRECT - Chemistry Estimated Glomerular Filtration Rate (calc) 54 mL/min/1.73m2 creatinine, serum 1.08 mg/dL glucose, plasma fasting 101 mg/dL carbon dioxide, venous blood 27 mmol/L chloride, serum 104 mmol/L calcium, serum 9.7 mg/dL urea nitrogen, blood 13 mg/dL bilirubin, serum, total 0.4 mg/dL sodium, serum 138 mmol/L albumin, serum 4.2 g/dL alkaline phosphatase, serum 98 U/L anion gap, serum 11 potassium, serum 4.3 mmol/L protein, total, serum 6.3 g/dL aspartate aminotransferase (SGOT), serum 53 U/L alanine aminotransferase (SGPT), serum 51 U/L Clinical Lists Update: CBC,CMP,BILI DIRECT - Hematology hemoglobin, blood 10.9 g/dL mean corpuscular volume, RBC 109.0 fL platelet count 321 10*3/mm3 leukocyte count, blood 6.48 10*3/mm3 red blood cell distribution width 13.5 % erythrocyte (RBC) count 3.00 10*6/mm3 hematocrit, blood 32.7 % Clinical Lists Update: CBC,CMP,Bili Direct - Chemistry Estimated Glomerular Filtration Rate (calc) 54 mL/min/1.73m2 Estimated Glomerular Filtration Rate (calc) 58 mL/min/1.73m2 glucose, plasma fasting 104 mg/dL glucose, plasma fasting 96 mg/dL glucose, plasma fasting 93 mg/dL glucose, plasma fasting 108 mg/dL albumin, serum 4.2 g/dL albumin, serum 4.4 g/dL albumin, serum 4.2 g/dL albumin, serum 4.1 g/dL alkaline phosphatase, serum 112 U/L alkaline phosphatase, serum 99 U/L alkaline phosphatase, serum 100 U/L alkaline phosphatase, serum 95 U/L anion gap, serum 13 anion gap, serum 16 anion gap, serum 17 anion gap, serum 15 potassium, serum 4.3 mmol/L potassium, serum 4.2 mmol/L potassium, serum 3.5 mmol/L potassium, serum 4.2 mmol/L protein, total, serum 7.1 g/dL protein, total, serum 7.0 g/dL protein, total, serum 6.2 g/dL protein, total, serum 6.7 g/dL aspartate aminotransferase (SGOT), serum 85 U/L aspartate aminotransferase (SGOT), serum 204 U/L aspartate aminotransferase (SGOT), serum 43 U/L aspartate aminotransferase (SGOT), serum 37 U/L alanine aminotransferase (SGPT), serum 103 U/L alanine aminotransferase (SGPT), serum 123 U/L alanine aminotransferase (SGPT), serum 44 U/L alanine aminotransferase (SGPT), serum 32 U/L sodium, serum 140 mmol/L sodium, serum 141 mmol/L sodium, serum 142 mmol/L sodium, serum 140 mmol/L bilirubin, serum, direct 0.2 mg/dL bilirubin, serum, direct 0.2 mg/dL bilirubin, serum, direct 0.1 mg/dL bilirubin, serum, total 0.4 mg/dL bilirubin, serum, total 0.6 mg/dL bilirubin, serum, total 0.7 mg/dL bilirubin, serum, total 0.2 mg/dL urea nitrogen, blood 12 mg/dL urea nitrogen, blood 16 mg/dL urea nitrogen, blood 13 mg/dL urea nitrogen, blood 12 mg/dL calcium, serum 10.0 mg/dL calcium, serum 10.1 mg/dL calcium, serum 9.5 mg/dL calcium, serum 9.3 mg/dL chloride, serum 106 mmol/L chloride, serum 104 mmol/L chloride, serum 105 mmol/L chloride, serum 104 mmol/L carbon dioxide, venous blood 25 mmol/L carbon dioxide, venous blood 25 mmol/L carbon dioxide, venous blood 24 mmol/L carbon dioxide, venous blood 25 mmol/L creatinine, serum 0.99 mg/dL creatinine, serum 0.99 mg/dL creatinine, serum 1.08 mg/dL creatinine, serum 1.01 mg/dL Clinical Lists Update: CBC,CMP,Bili Direct - Hematology platelet count 345 10*3/mm3 platelet count 356 10*3/mm3 platelet count 334 10*3/mm3 platelet count 511 10*3/mm3 erythrocyte (RBC) count 3.67 10*6/mm3 erythrocyte (RBC) count 3.31 10*6/mm3 erythrocyte (RBC) count 3.15 10*6/mm3 erythrocyte (RBC) count 2.64 10*6/mm3 red blood cell distribution width 16.5 % red blood cell distribution width 17.2 % red blood cell distribution width 13.7 % red blood cell distribution width 14.4 % leukocyte count, blood 6.04 10*3/mm3 leukocyte count, blood 9.23 10*3/mm3 leukocyte count, blood 11.07 10*3/mm3 leukocyte count, blood 6.70 10*3/mm3 mean corpuscular volume, RBC 98.4 fL mean corpuscular volume, RBC 103.0 fL mean corpuscular volume, RBC 107.6 fL mean corpuscular volume, RBC 97.7 fL hemoglobin, blood 11.8 g/dL hemoglobin, blood 11.5 g/dL hemoglobin, blood 11.5 g/dL hemoglobin, blood 8.0 g/dL hematocrit, blood 36.1 % hematocrit, blood 34.1 % hematocrit, blood 33.9 % hematocrit, blood 25.8 % Clinical Lists Update: CBC,CMP,Bili Direct DR LEDEZMA LABS - Chemistry bilirubin, serum, direct 0.2 mg/dL anion gap, serum 14 alanine aminotransferase (SGPT), serum 48 U/L Estimated Glomerular Filtration Rate (calc) 48 mL/min/1.73m2 aspartate aminotransferase (SGOT), serum 48 U/L alkaline phosphatase, serum 100 U/L chloride, serum 104 mmol/L sodium, serum 140 mmol/L creatinine, serum 1.20 mg/dL bilirubin, serum, total 0.7 mg/dL urea nitrogen, blood 17 mg/dL calcium, serum 9.8 mg/dL glucose, plasma fasting 108 mg/dL albumin, serum 4.3 g/dL potassium, serum 4.2 mmol/L protein, total, serum 6.7 g/dL carbon dioxide, venous blood 26 mmol/L Clinical Lists Update: CBC,CMP,Bili Direct DR LEDEZMA LABS - Hematology erythrocyte (RBC) count 3.13 10*6/mm3 mean corpuscular volume, RBC 110.2 fL hematocrit, blood 34.5 % hemoglobin, blood 11.2 g/dL red blood cell distribution width 13.8 % leukocyte count, blood 7.37 10*3/mm3 platelet count 454 10*3/mm3 Clinical Lists Update: CBC,CMP,Chol,Trig, Bili D - Chemistry bilirubin, serum, total 0.5 mg/dL bilirubin, serum, direct 0.2 mg/dL sodium, serum 142 mmol/L alanine aminotransferase (SGPT), serum 42 U/L aspartate aminotransferase (SGOT), serum 35 U/L protein, total, serum 7.1 g/dL potassium, serum 4.6 mmol/L anion gap, serum 16 alkaline phosphatase, serum 115 U/L albumin, serum 4.4 g/dL triglyceride, serum, fasting 279 mg/dL glucose, plasma fasting 110 mg/dL creatinine, serum 1.15 mg/dL carbon dioxide, venous blood 26 mmol/L cholesterol, serum 170 mg/dL chloride, serum 105 mmol/L calcium, serum 9.9 mg/dL urea nitrogen, blood 17 mg/dL Clinical Lists Update: CBC,CMP,Chol,Trig, Bili D - Hematology red blood cell distribution width 16.8 % erythrocyte (RBC) count 3.79 10*6/mm3 leukocyte count, blood 8.45 10*3/mm3 platelet count 406 10*3/mm3 mean corpuscular volume, RBC 96.6 fL hematocrit, blood 36.6 % hemoglobin, blood 11.9 g/dL Clinical Lists Update: CBC,CMP,Chol,Trig,TSH,Free T4 - Chemistry albumin, serum 4.2 g/dL alkaline phosphatase, serum 104 U/L anion gap, serum 15 potassium, serum 4.5 mmol/L protein, total, serum 6.9 g/dL aspartate aminotransferase (SGOT), serum 48 U/L alanine aminotransferase (SGPT), serum 37 U/L sodium, serum 139 mmol/L thyroxine, serum, free 1.02 ng/dL triglyceride, serum, fasting 475 mg/dL thyroid stimulating hormone, serum 4.30 u[iU]/mL bilirubin, serum, total 0.3 mg/dL urea nitrogen, blood 16 mg/dL calcium, serum 9.5 mg/dL chloride, serum 103 mmol/L cholesterol, serum 210 mg/dL carbon dioxide, venous blood 26 mmol/L creatinine, serum 1.08 mg/dL Estimated Glomerular Filtration Rate (calc) 54 mL/min/1.73m2 glucose, plasma fasting 114 mg/dL Clinical Lists Update: CBC,CMP,Chol,Trig,TSH,Free T4 - Hematology hematocrit, blood 31.1 % platelet count 498 10*3/mm3 erythrocyte (RBC) count 2.94 10*6/mm3 hemoglobin, blood 9.9 g/dL leukocyte count, blood 6.49 10*3/mm3 mean corpuscular volume, RBC 105.8 fL red blood cell distribution width 13.0 % Office Visit: Dr Germain's Check Up: Established Patient Visit - Chemistry bilirubin, serum, total 0.6 mg/dL bilirubin, serum, total 0.2 mg/dL urea nitrogen, blood 17 mg/dL urea nitrogen, blood 20 mg/dL urea nitrogen, blood 16 mg/dL urea nitrogen, blood 13 mg/dL urea nitrogen, blood 15 mg/dL calcium, serum 98 mg/dL calcium, serum 9.7 mg/dL calcium, serum 9.3 mg/dL calcium, serum 9.3 mg/dL calcium, serum 9.5 mg/dL chloride, serum 103 mmol/L chloride, serum 94 mmol/L chloride, serum 95 mmol/L chloride, serum 101 mmol/L chloride, serum 103 mmol/L cholesterol/HDL ratio, serum 10.1 cholesterol, serum 303 mg/dL carbon dioxide, venous blood 26 mmol/L carbon dioxide, venous blood 31.0 mmol/L carbon dioxide, venous blood 31.0 mmol/L carbon dioxide, venous blood 28.0 mmol/L carbon dioxide, venous blood 26 mmol/L creatinine, serum 1.05 mg/dL creatinine, serum 1.2 mg/dL creatinine, serum 1.1 mg/dL creatinine, serum 1.0 mg/dL creatinine, serum 0.93 mg/dL Estimated Glomerular Filtration Rate (calc) 64 mL/min/1.73m2 glucose, plasma fasting 100 mg/dL glucose, plasma fasting 86 mg/dL glucose, plasma fasting 81 mg/dL glucose, plasma fasting 97 mg/dL glucose, plasma fasting 107 mg/dL HDL cholesterol, serum 30 mg/dL albumin, serum 4.2 g/dL albumin, serum 4.2 g/dL albumin, serum 3.8 g/dL alkaline phosphatase, serum 115 U/L alkaline phosphatase, serum 79 U/L alkaline phosphatase, serum 87 U/L alkaline phosphatase, serum 110 U/L anion gap, serum 16 anion gap, serum 11 anion gap, serum 11 anion gap, serum 12 anion gap, serum 16 potassium, serum 4.1 mmol/L potassium, serum 3.8 mmol/L potassium, serum 3.9 mmol/L potassium, serum 3.9 mmol/L potassium, serum 4.3 mmol/L protein, total, serum 7.0 g/dL protein, total, serum 6.5 g/dL protein, total, serum 6.4 g/dL aspartate aminotransferase (SGOT), serum 136 U/L aspartate aminotransferase (SGOT), serum 54 U/L aspartate aminotransferase (SGOT), serum 102 U/L aspartate aminotransferase (SGOT), serum 37 U/L alanine aminotransferase (SGPT), serum 172 U/L alanine aminotransferase (SGPT), serum 92 U/L alanine aminotransferase (SGPT), serum 125 U/L alanine aminotransferase (SGPT), serum 47 U/L sodium, serum 141 mmol/L sodium, serum 132 mmol/L sodium, serum 133 mmol/L sodium, serum 137 mmol/L sodium, serum 141 mmol/L thyroxine, serum, free 1.04 ng/dL triglyceride, serum, fasting 1298 mg/dL thyroid stimulating hormone, serum 1.60 u[iU]/mL very low density lipoproteins 260 mg/dL LDL cholesterol, serum 13 mg/dL hemoglobin A1C, blood, as % of total hemoglobin 4.90 % bilirubin, serum, direct 0.1 mg/dL bilirubin, serum, direct 0.0 mg/dL bilirubin, serum, direct 0.1 mg/dL bilirubin, serum, direct 0.1 mg/dL bilirubin, serum, total 0.6 mg/dL bilirubin, serum, total 0.5 mg/dL bilirubin, serum, total 0.5 mg/dL Office Visit: Dr Germain's Check Up: Established Patient Visit - Hematology hematocrit, blood 35.1 % hemoglobin, blood 11.7 g/dL hematocrit, blood 40 % hematocrit, blood 37 % hematocrit, blood 35.1 % platelet count 301 10*3/mm3 platelet count 382 10*3/mm3 platelet count 342 10*3/mm3 platelet count 347 10*3/mm3 platelet count 385 10*3/mm3 erythrocyte (RBC) count 3.57 10*6/mm3 erythrocyte (RBC) count 4.08 10*6/mm3 erythrocyte (RBC) count 3.84 10*6/mm3 erythrocyte (RBC) count 3.53 10*6/mm3 erythrocyte (RBC) count 3.22 10*6/mm3 red blood cell distribution width 16.5 % red blood cell distribution width 17.1 % red blood cell distribution width 17.5 % red blood cell distribution width 17.0 % red blood cell distribution width 13.8 % leukocyte count, blood 8.49 10*3/mm3 leukocyte count, blood 12.4 10*3/mm3 leukocyte count, blood 14.1 10*3/mm3 leukocyte count, blood 6.3 10*3/mm3 leukocyte count, blood 7.20 10*3/mm3 mean corpuscular volume, RBC 98.3 fL mean corpuscular volume, RBC 100 fL mean corpuscular volume, RBC 104 fL mean corpuscular volume, RBC 104 fL mean corpuscular volume, RBC 109.0 fL hemoglobin, blood 11.6 g/dL hemoglobin, blood 13.2 g/dL hemoglobin, blood 12.3 g/dL hemoglobin, blood 11.8 g/dL hematocrit, blood 41 %
--- OUTSIDE RECORDS SUMMARY | 2018-10-13 09:34 | XMS REPORT | Clinical Summary ---
Author Author hilario vazquez DO, [place] [address] Phone Unavailable Allergies, Adverse Reactions, Alerts Allergy [...] TBDP 1 PO Q6hrs prn nausea ONDANSETRON 17275419513 Active Kateryna Villalpando LOMOTIL 2.5-0.025 MG TABS 1 PO TID prn DIPHENOXYLATE-ATROPINE 63192163058 Active Kateryna Villalpando LANSOPRAZOLE 30 MG CPDR 1 PO daily LANSOPRAZOLE 24495266867 Active Kateryna Villalpando SYNTHROID 200 MCG TABS 1 PO daily LEVOTHYROXINE SODIUM 17147568379 Active Kateryna Villalpando VITAMINS PLUS TABS 1 PO daily VIT-FE FUMARATE-FA TABS 57321368581 Active Taina Germain ALBUTEROL SULFATE 0.083 % NEBU SOLN 1 treatment TID prn ALBUTEROL SULFATE 97834052918 Active Taina Germain ZITHROMAX Z-STEPHON 250 MG TABS as directed AZITHROMYCIN 00484132004 Active Taina Germain SANDOSTATIN LAR DEPOT 10 MG KIT 1 injection monthly OCTREOTIDE ACETATE 54269215619 Active Taina Germain URSODIOL 300 MG CAPS 1 po TID URSODIOL 00580453378 Active Kateryna Villalpando LUVENA VAGINAL MOISTURIZER GEL use in vagina every third day VAGINAL MOISTURIZER 07088491184 Active Taina Germain ESTRACE 0.1 MG/GM CREA Apply 1/2 gram vaginally twice a week ESTRADIOL 93271277981 Active Kateryna Villalpando LIPITOR 40 MG TAB 1 po daily ATORVASTATIN CALCIUM 45763502428 Active Kateryna Villalpando GLEEVEC 400 MG TABS 1/2 tab PO QD IMATINIB MESYLATE 76396811046 Active Taina Germain VALTREX 1 GM TABS 1 PO BID for 5 days prn cold sores VALACYCLOVIR HCL 17255162648 Active Kateryna Villalpando Immunizations Vaccine Administration Date [...]
--- OUTSIDE RECORDS SUMMARY | 2018-10-13 09:35 | XMS REPORT | Clinical Summary ---
Author Author hilario vazquez DO, FACP [place] [address] Phone Unavailable Allergies, Adverse Reactions, Alerts Allergy [...] TBDP 1 PO Q6hrs prn nausea ONDANSETRON 57215086094 Active Kateryna Villalpando LOMOTIL 2.5-0.025 MG TABS 1 PO TID prn DIPHENOXYLATE-ATROPINE 32009408987 Active Kateryna Villalpando LANSOPRAZOLE 30 MG CPDR 1 PO daily LANSOPRAZOLE 79118374165 Active Kateryna Villalpando SYNTHROID 200 MCG TABS 1 PO daily LEVOTHYROXINE SODIUM 72639168106 Active Kateryna Villalpando VITAMINS PLUS TABS 1 PO daily VIT-FE FUMARATE-FA TABS 86827194028 Active Taina Germain ALBUTEROL SULFATE 0.083 % NEBU SOLN 1 treatment TID prn ALBUTEROL SULFATE 98027626375 Active Taina Germain ZITHROMAX Z-STEPHON 250 MG TABS as directed AZITHROMYCIN 19261436879 Active Taina Germain SANDOSTATIN LAR DEPOT 10 MG KIT 1 injection monthly OCTREOTIDE ACETATE 62588675691 Active Taina Germain URSODIOL 300 MG CAPS 1 po TID URSODIOL 74838633417 Active Kateryna Villalpando LUVENA VAGINAL MOISTURIZER GEL use in vagina every third day VAGINAL MOISTURIZER 81223419943 Active Taina Germain ESTRACE 0.1 MG/GM CREA Apply 1/2 gram vaginally twice a week ESTRADIOL 66363189061 Active Kateryna Villalpando LIPITOR 40 MG TAB 1 po daily ATORVASTATIN CALCIUM 55074085929 Active Kateryna Villalpando GLEEVEC 400 MG TABS 1/2 tab PO QD IMATINIB MESYLATE 49594462139 Active Taina Germain VALTREX 1 GM TABS 1 PO BID for 5 days prn cold sores VALACYCLOVIR HCL 41626116585 Active Kateryna Villalpando Immunizations Vaccine Administration Date [...]
--- OUTSIDE RECORDS SUMMARY | 2018-10-13 09:36 | XMS REPORT | Clinical Summary ---
Author Author hilario vazquez DO, [place] [address] Phone Unavailable Allergies, Adverse Reactions, Alerts Allergy [...] TBDP 1 PO Q6hrs prn nausea ONDANSETRON 33144747391 Active Taina Germain LOMOTIL 2.5-0.025 MG TABS 1 PO TID prn DIPHENOXYLATE-ATROPINE 65287641162 Active Taina Germain GLEEVEC 400 MG TABS 1 PO daily IMATINIB MESYLATE 75207170293 Active Taina Germain LANSOPRAZOLE 30 MG CPDR 1 PO daily LANSOPRAZOLE 90382040165 Active Kateryna Villalpando SYNTHROID 200 MCG TABS 1 PO daily LEVOTHYROXINE SODIUM 99506055663 Active Kateryna Villalpando VITAMINS PLUS TABS 1 PO daily VIT-FE FUMARATE-FA TABS 77876019842 Active Taina Germain ALBUTEROL SULFATE 0.083 % NEBU SOLN 1 treatment TID prn ALBUTEROL SULFATE 78308127784 Active Taina Germain ZITHROMAX Z-STEPHON 250 MG TABS as directed AZITHROMYCIN 50943972060 Active Kateryna Villalpando SANDOSTATIN LAR DEPOT 10 MG KIT 1 injection monthly OCTREOTIDE ACETATE 64730730681 Active Taina Germain URSODIOL 300 MG CAPS 1 po TID URSODIOL 13476512302 Active Taina Germain LUVENA VAGINAL MOISTURIZER GEL use in vagina every third day VAGINAL MOISTURIZER 66147901890 Active Taina Germain ESTRACE 0.1 MG/GM CREA Apply 1/2 gram vaginally twice a week ESTRADIOL 02520104922 Active Taina Germain LIPITOR 40 MG TAB 1 po daily ATORVASTATIN CALCIUM 48766862667 Active Kateryna Villalpando CELEXA 20 MG TABS 1 PO daily CITALOPRAM HYDROBROMIDE 84962853903 Active Taina Germain Immunizations Vaccine Administration Date [...] creatinine, serum 1.09 mg/dL Clinical Lists Update: CBC,CMP - Hematology platelet count 378 10*3/mm3 erythrocyte [...] volume, RBC 104.4 fL Clinical Lists Update: CBC,[facility]MP DR [facility] - Chemistry glucose, plasma [...] serum, direct 0.0 mg/dL Clinical Lists Update: CBC,[facility] - Hematology red blood cell distribution width 16.3 % hemoglobin, blood 12.7 g/dL platelet count 342 10*3/mm3 erythrocyte (RBC) count 3.81 10*6/mm3 leukocyte count, blood 6.5 10*3/mm3 mean corpuscular volume, RBC 103 fL hematocrit, blood 39 % Clinical Lists Update: CBC,CMP,[facility] - Chemistry Estimated Glomerular Filtration Rate (calc) 54 mL/min/1.73m2 glucose, plasma fasting 101 mg/dL albumin, serum 4.2 g/dL alkaline phosphatase, serum 98 U/L urea nitrogen, blood 13 mg/dL calcium, serum 9.7 mg/dL chloride, serum 104 mmol/L carbon dioxide, venous blood 27 mmol/L anion gap, serum 11 sodium, serum 138 mmol/L bilirubin, serum, total 0.4 mg/dL alanine aminotransferase (SGPT), serum 51 U/L aspartate aminotransferase (SGOT), serum 53 U/L protein, total, serum 6.3 g/dL potassium, serum 4.3 mmol/L creatinine, serum 1.08 mg/dL Clinical Lists Update: CBC,CMP,[facility] - Hematology erythrocyte (RBC) count 3.00 10*6/mm3 leukocyte count, blood 6.48 10*3/mm3 mean corpuscular volume, RBC 109.0 fL red blood cell distribution width 13.5 % hemoglobin, blood 10.9 g/dL platelet count 321 10*3/mm3 hematocrit, blood 32.7 % Clinical Lists Update: [...] serum 9.5 mg/dL calcium, serum 9.3 mg/dL urea nitrogen, blood 12 mg/dL urea nitrogen, blood 16 mg/dL urea nitrogen, blood 13 mg/dL urea nitrogen, blood 12 mg/dL alkaline phosphatase, serum 112 U/L alkaline phosphatase, serum 99 U/L alkaline phosphatase, serum 100 U/L alkaline phosphatase, serum 95 U/L albumin, serum 4.2 g/dL albumin, serum 4.4 g/dL albumin, serum 4.2 g/dL albumin, serum 4.1 g/dL Clinical Lists Update: CBC,CMP,[facility] - Hematology platelet count 511 10*3/mm3 platelet count 334 10*3/mm3 hemoglobin, blood 11.5 g/dL hemoglobin, blood 11.5 g/dL hemoglobin, blood 8.0 g/dL hematocrit, blood 36.1 % hematocrit, blood 34.1 % hematocrit, blood 33.9 % hematocrit, blood 25.8 % red blood cell distribution width 16.5 [...] count 345 10*3/mm3 platelet count 356 10*3/mm3 hemoglobin, blood 11.8 g/dL Clinical Lists Update: CBC,CMP,[facility] - Chemistry Estimated Glomerular Filtration Rate (calc) 48 mL/min/1.73m2 glucose, plasma fasting 108 mg/dL anion gap, serum 14 sodium, serum 140 mmol/L bilirubin, serum, total 0.7 mg/dL alanine aminotransferase (SGPT), serum 48 U/L aspartate aminotransferase (SGOT), serum 48 U/L protein, total, serum 6.7 g/dL potassium, serum 4.2 mmol/L bilirubin, serum, direct 0.2 mg/dL creatinine, serum 1.20 mg/dL carbon dioxide, venous blood 26 mmol/L chloride, serum 104 mmol/L calcium, serum 9.8 mg/dL urea nitrogen, blood 17 mg/dL alkaline phosphatase, serum 100 U/L albumin, serum 4.3 g/dL Clinical Lists Update: CBC,CMP,[facility] - Hematology mean corpuscular volume, RBC 110.2 fL hematocrit, blood 34.5 % red blood cell distribution width 13.8 % leukocyte count, blood 7.37 10*3/mm3 hemoglobin, blood 11.2 g/dL erythrocyte (RBC) count 3.13 10*6/mm3 platelet count 454 10*3/mm3 Clinical Lists Update: CBC,CMP,Chol,Trig,TSH,Free T4 - Chemistry aspartate aminotransferase (SGOT), serum 48 U/L protein, total, serum 6.9 g/dL potassium, serum 4.5 mmol/L thyroxine, serum, free 1.02 ng/dL creatinine, serum 1.08 mg/dL carbon dioxide, venous blood 26 mmol/L cholesterol, serum 210 mg/dL chloride, serum 103 mmol/L calcium, serum 9.5 mg/dL urea nitrogen, blood 16 mg/dL alkaline phosphatase, serum 104 U/L albumin, serum 4.2 g/dL alanine aminotransferase (SGPT), serum 37 U/L bilirubin, serum, total 0.3 mg/dL triglyceride, serum, fasting 475 mg/dL sodium, serum 139 mmol/L anion gap, serum 15 glucose, plasma fasting 114 mg/dL Estimated Glomerular Filtration Rate (calc) 54 mL/min/1.73m2 thyroid stimulating hormone, serum 4.30 u[iU]/mL Clinical Lists Update: CBC,CMP,Chol,Trig,TSH,Free T4 - Hematology red blood cell distribution width 13.0 % hematocrit, blood 31.1 % mean corpuscular volume, RBC 105.8 fL hemoglobin, blood 9.9 g/dL leukocyte count, blood 6.49 10*3/mm3 platelet count 498 10*3/mm3 erythrocyte (RBC) count 2.94 10*6/mm3 Office Visit: Dr Germain's Check Up: [...]
--- OUTSIDE RECORDS SUMMARY | 2018-10-13 09:36 | XMS REPORT | Clinical Summary ---
Author Author hilario vazquez DO, FACP Address [place] [id number] Phone Unavailable Allergies, Adverse Reactions, Alerts Allergy [...] TBDP 1 PO Q6hrs prn nausea ONDANSETRON 37398759667 Active Kateryna Villalpando LOMOTIL 2.5-0.025 MG TABS 1 PO TID prn DIPHENOXYLATE-ATROPINE 14379748821 Active Kateryna Villalpando LANSOPRAZOLE 30 MG CPDR 1 PO daily LANSOPRAZOLE 89230402484 Active Kateryna Villalpando SYNTHROID 200 MCG TABS 1 PO daily LEVOTHYROXINE SODIUM 94694342980 Active Kateryna Villalpando VITAMINS PLUS TABS 1 PO daily VIT-FE FUMARATE-FA TABS 57825196536 Active Taina Germain ALBUTEROL SULFATE 0.083 % NEBU SOLN 1 treatment TID prn ALBUTEROL SULFATE 08156027352 Active Taina Germain ZITHROMAX Z-STEPHON 250 MG TABS as directed AZITHROMYCIN 39029837608 Active Taina Germain SANDOSTATIN LAR DEPOT 10 MG KIT 1 injection monthly OCTREOTIDE ACETATE 55430793352 Active Taina Germain URSODIOL 300 MG CAPS 1 po TID URSODIOL 09738978826 Active Kateryna Villalpando LUVENA VAGINAL MOISTURIZER GEL use in vagina every third day VAGINAL MOISTURIZER 81662814653 Active Taina Germain ESTRACE 0.1 MG/GM CREA Apply 1/2 gram vaginally twice a week ESTRADIOL 71530356019 Active Kateryna Villalpando LIPITOR 40 MG TAB 1 po daily ATORVASTATIN CALCIUM 39397174373 Active Kateryna Villalpando GLEEVEC 400 MG TABS 1/2 tab PO QD IMATINIB MESYLATE 27411915183 Active Taina Germain VALTREX 1 GM TABS 1 PO BID for 5 days prn cold sores VALACYCLOVIR HCL 72661162557 Active Kateryna Villalpando Immunizations Vaccine Administration Date [...]
--- OUTSIDE RECORDS SUMMARY | 2018-10-13 09:37 | XMS REPORT | Clinical Summary ---
Author Author hilario vazquez DO, [place] [address] Phone Unavailable Allergies, Adverse Reactions, Alerts Allergy [...] TBDP 1 PO Q6hrs prn nausea ONDANSETRON 47488711980 Active Kateryna Villalpando LOMOTIL 2.5-0.025 MG TABS 1 PO TID prn DIPHENOXYLATE-ATROPINE 15287085263 Active Kateryna Villalpando LANSOPRAZOLE 30 MG CPDR 1 PO daily LANSOPRAZOLE 33872389085 Active Kateryna Villalpando SYNTHROID 200 MCG TABS 1 PO daily LEVOTHYROXINE SODIUM 79070222626 Active Kateryna Villalpando VITAMINS PLUS TABS 1 PO daily VIT-FE FUMARATE-FA TABS 33201628954 Active Taina Germain ALBUTEROL SULFATE 0.083 % NEBU SOLN 1 treatment TID prn ALBUTEROL SULFATE 72416789927 Active Taina Germain ZITHROMAX Z-STEPHON 250 MG TABS as directed AZITHROMYCIN 74746901617 Active Taina Germain SANDOSTATIN LAR DEPOT 10 MG KIT 1 injection monthly OCTREOTIDE ACETATE 35339115782 Active Taina Germain URSODIOL 300 MG CAPS 1 po TID URSODIOL 21337726136 Active Kateryna Villalpando LUVENA VAGINAL MOISTURIZER GEL use in vagina every third day VAGINAL MOISTURIZER 73840037444 Active Taina Germain ESTRACE 0.1 MG/GM CREA Apply 1/2 gram vaginally twice a week ESTRADIOL 01778047009 Active Kateryna Villalpando LIPITOR 40 MG TAB 1 po daily ATORVASTATIN CALCIUM 87799752891 Active Kateryna Villalpando GLEEVEC 400 MG TABS 1/2 tab PO QD IMATINIB MESYLATE 92349710111 Active Taina Germain VALTREX 1 GM TABS 1 PO BID for 5 days prn cold sores VALACYCLOVIR HCL 91864392720 Active Kateryna Villalpando Immunizations Vaccine Administration Date [...]
--- OUTSIDE RECORDS SUMMARY | 2018-10-13 09:38 | XMS REPORT | Clinical Summary ---
Author Author hilario vazquez DO, [place] [address] Phone Unavailable Allergies, Adverse Reactions, Alerts Allergy [...] TBDP 1 PO Q6hrs prn nausea ONDANSETRON 90926921359 Active Taina Germain LOMOTIL 2.5-0.025 MG TABS 1 PO TID prn DIPHENOXYLATE-ATROPINE 71277817233 Active Taina Germain GLEEVEC 400 MG TABS 1 PO daily IMATINIB MESYLATE 99507999001 Active Taina Germain LANSOPRAZOLE 30 MG CPDR 1 PO daily LANSOPRAZOLE 68384363376 Active Kateryna Villalpando SYNTHROID 200 MCG TABS 1 PO daily LEVOTHYROXINE SODIUM 46858283455 Active Kateryna Villalpando VITAMINS PLUS TABS 1 PO daily VIT-FE FUMARATE-FA TABS 92865355902 Active Taina Germain ALBUTEROL SULFATE 0.083 % NEBU SOLN 1 treatment TID prn ALBUTEROL SULFATE 45733963286 Active Taina Germain ZITHROMAX Z-STEPHON 250 MG TABS as directed AZITHROMYCIN 44620038414 Active Kateryna Villalpando SANDOSTATIN LAR DEPOT 10 MG KIT 1 injection monthly OCTREOTIDE ACETATE 20688307600 Active Taina Germain URSODIOL 300 MG CAPS 1 po TID URSODIOL 77133100989 Active Taina Germain LUVENA VAGINAL MOISTURIZER GEL use in vagina every third day VAGINAL MOISTURIZER 66879548920 Active Taina Germain ESTRACE 0.1 MG/GM CREA Apply 1/2 gram vaginally twice a week ESTRADIOL 66424183880 Active Taina Germain LIPITOR 40 MG TAB 1 po daily ATORVASTATIN CALCIUM 58922165657 Active Kateryna Villalpando CELEXA 20 MG TABS 1 PO daily CITALOPRAM HYDROBROMIDE 36609761426 Active Taina Germain Immunizations Vaccine Administration Date [...] chloride, serum 99 mmol/L Clinical Lists Update: CBC,[facility] - Hematology hemoglobin, blood 9.1 g/dL hemoglobin, [...] sodium, serum 135 mmol/L Clinical Lists Update: CBC,[facility] DR [facility] - Hematology hematocrit, blood [...] direct 0.2 mg/dL anion gap, serum 14 alkaline phosphatase, serum 100 U/L albumin, serum 4.3 g/dL glucose, plasma fasting 108 mg/dL Estimated Glomerular Filtration Rate (calc) 48 mL/min/1.73m2 creatinine, serum 1.20 mg/dL carbon dioxide, venous blood 26 mmol/L chloride, serum 104 mmol/L calcium, serum 9.8 mg/dL urea nitrogen, blood 17 mg/dL bilirubin, serum, total 0.7 mg/dL sodium, serum 140 mmol/L alanine aminotransferase (SGPT), serum 48 U/L aspartate aminotransferase (SGOT), serum 48 U/L protein, total, serum 6.7 g/dL potassium, serum 4.2 mmol/L Clinical Lists Update: CBC,CMP,[facility] - Hematology hemoglobin, blood 11.2 g/dL erythrocyte (RBC) count 3.13 10*6/mm3 mean corpuscular volume, RBC 110.2 fL hematocrit, blood 34.5 % leukocyte count, blood 7.37 10*3/mm3 platelet count 454 10*3/mm3 red blood cell distribution width 13.8 % Clinical Lists Update: CBC,CMP,Chol,Trig,TSH,Free T4 - Chemistry calcium, serum 9.5 mg/dL glucose, plasma fasting 114 mg/dL chloride, serum 103 mmol/L thyroxine, serum, free 1.02 ng/dL sodium, serum 139 mmol/L creatinine, serum 1.08 mg/dL alanine aminotransferase (SGPT), serum 37 U/L albumin, serum 4.2 g/dL urea nitrogen, blood 16 mg/dL Estimated Glomerular Filtration Rate (calc) 54 mL/min/1.73m2 bilirubin, serum, total 0.3 mg/dL alkaline phosphatase, serum 104 U/L anion gap, serum 15 triglyceride, serum, fasting 475 mg/dL thyroid stimulating hormone, serum 4.30 u[iU]/mL cholesterol, serum 210 mg/dL potassium, serum 4.5 mmol/L protein, total, serum 6.9 g/dL carbon dioxide, venous blood 26 mmol/L aspartate aminotransferase (SGOT), serum 48 U/L Clinical Lists Update: CBC,CMP,Chol,Trig,TSH,Free T4 - Hematology mean corpuscular volume, RBC 105.8 fL erythrocyte (RBC) count 2.94 10*6/mm3 hemoglobin, blood 9.9 g/dL red blood cell distribution width 13.0 % leukocyte count, blood 6.49 10*3/mm3 platelet count 498 10*3/mm3 hematocrit, blood 31.1 % Office Visit: Dr [...]
--- OUTSIDE RECORDS SUMMARY | 2018-10-13 09:38 | XMS REPORT | Clinical Summary ---
Author Author hilario vazquez DO, FACP Address [place] [phone] Phone Unavailable Allergies, Adverse Reactions, Alerts Allergy [...] TBDP 1 PO Q6hrs prn nausea ONDANSETRON 06050334489 Active Kateryna Villalpando LOMOTIL 2.5-0.025 MG TABS 1 PO TID prn DIPHENOXYLATE-ATROPINE 89924213168 Active Kateryna Villalpando LANSOPRAZOLE 30 MG CPDR 1 PO daily LANSOPRAZOLE 07145221473 Active Kateryna Villalpando SYNTHROID 200 MCG TABS 1 PO daily LEVOTHYROXINE SODIUM 67516335341 Active Kateryna Villalpando VITAMINS PLUS TABS 1 PO daily VIT-FE FUMARATE-FA TABS 84367516110 Active Taina Germain ALBUTEROL SULFATE 0.083 % NEBU SOLN 1 treatment TID prn ALBUTEROL SULFATE 57164377705 Active Taina Germain ZITHROMAX Z-STEPHON 250 MG TABS as directed AZITHROMYCIN 54871258490 Active Taina Germain SANDOSTATIN LAR DEPOT 10 MG KIT 1 injection monthly OCTREOTIDE ACETATE 95757504977 Active Taina Germain URSODIOL 300 MG CAPS 1 po TID URSODIOL 34394591643 Active Kateryna Villalpando LUVENA VAGINAL MOISTURIZER GEL use in vagina every third day VAGINAL MOISTURIZER 50775309634 Active Taina Germain ESTRACE 0.1 MG/GM CREA Apply 1/2 gram vaginally twice a week ESTRADIOL 44505522765 Active Kateryna Villalpando LIPITOR 40 MG TAB 1 po daily ATORVASTATIN CALCIUM 70969872176 Active Kateryna Villalpando GLEEVEC 400 MG TABS 1/2 tab PO QD IMATINIB MESYLATE 61727484074 Active Taina Germain VALTREX 1 GM TABS 1 PO BID for 5 days prn cold sores VALACYCLOVIR HCL 94049773023 Active Kateryna Villalpando Immunizations Vaccine Administration Date [...]
--- OUTSIDE RECORDS SUMMARY | 2018-10-13 09:39 | XMS REPORT | Clinical Summary ---
Author Author hilario vazquez DO, [place] [address] Phone Unavailable Allergies, Adverse Reactions, Alerts Allergy [...] TBDP 1 PO Q6hrs prn nausea ONDANSETRON 89537765172 Active Kateryna Villalpando LOMOTIL 2.5-0.025 MG TABS 1 PO TID prn DIPHENOXYLATE-ATROPINE 33128347492 Active Kateryna Villalpando LANSOPRAZOLE 30 MG CPDR 1 PO daily LANSOPRAZOLE 69833825674 Active Kateryna Villalpando SYNTHROID 200 MCG TABS 1 PO daily LEVOTHYROXINE SODIUM 07397648574 Active Kateryna Villalpando VITAMINS PLUS TABS 1 PO daily VIT-FE FUMARATE-FA TABS 68273227931 Active Taina Germain ALBUTEROL SULFATE 0.083 % NEBU SOLN 1 treatment TID prn ALBUTEROL SULFATE 58735720838 Active Taina Germain ZITHROMAX Z-STEPHON 250 MG TABS as directed AZITHROMYCIN 95363878138 Active Taina Germain SANDOSTATIN LAR DEPOT 10 MG KIT 1 injection monthly OCTREOTIDE ACETATE 76530499801 Active Taina Germain URSODIOL 300 MG CAPS 1 po TID URSODIOL 85431675991 Active Kateryna Villalpando LUVENA VAGINAL MOISTURIZER GEL use in vagina every third day VAGINAL MOISTURIZER 77914103872 Active Taina Germain ESTRACE 0.1 MG/GM CREA Apply 1/2 gram vaginally twice a week ESTRADIOL 29532361808 Active Kateryna Villalpando LIPITOR 40 MG TAB 1 po daily ATORVASTATIN CALCIUM 60739720634 Active Kateryna Villalpando GLEEVEC 400 MG TABS 1/2 tab PO QD IMATINIB MESYLATE 88466833558 Active Taina Germain VALTREX 1 GM TABS 1 PO BID for 5 days prn cold sores VALACYCLOVIR HCL 19219561615 Active Kateryna Villalpando Immunizations Vaccine Administration Date [...]
--- OUTSIDE RECORDS SUMMARY | 2018-10-13 09:40 | XMS REPORT | Clinical Summary ---
Author Author hilario vazquez DO, [place] [address] Phone Unavailable Allergies, Adverse Reactions, Alerts Allergy [...] TBDP 1 PO Q6hrs prn nausea ONDANSETRON 96703827468 Active Taina Germain LOMOTIL 2.5-0.025 MG TABS 1 PO TID prn DIPHENOXYLATE-ATROPINE 68743428861 Active Taina Germain GLEEVEC 400 MG TABS 1 PO daily IMATINIB MESYLATE 11715397618 Active Taina Germain LANSOPRAZOLE 30 MG CPDR 1 PO daily LANSOPRAZOLE 97424899608 Active Kateryna Villalpando SYNTHROID 200 MCG TABS 1 PO daily LEVOTHYROXINE SODIUM 92208433204 Active Kateryna Villalpando VITAMINS PLUS TABS 1 PO daily VIT-FE FUMARATE-FA TABS 67101257950 Active Taina Germain ALBUTEROL SULFATE 0.083 % NEBU SOLN 1 treatment TID prn ALBUTEROL SULFATE 42503630214 Active Taina Germain ZITHROMAX Z-STEPHON 250 MG TABS as directed AZITHROMYCIN 33908518602 Active Kateryna Villalpando SANDOSTATIN LAR DEPOT 10 MG KIT 1 injection monthly OCTREOTIDE ACETATE 54244230424 Active Taina Germain URSODIOL 300 MG CAPS 1 po TID URSODIOL 50078947342 Active Taina Germain LUVENA VAGINAL MOISTURIZER GEL use in vagina every third day VAGINAL MOISTURIZER 26396534016 Active Taina Germain ESTRACE 0.1 MG/GM CREA Apply 1/2 gram vaginally twice a week ESTRADIOL 50436890789 Active Taina Germain LIPITOR 40 MG TAB 1 po daily ATORVASTATIN CALCIUM 95429565127 Active Kateryna Villalpando CELEXA 20 MG TABS 1 PO daily CITALOPRAM HYDROBROMIDE 79902869490 Active Taina Germain Immunizations Vaccine Administration Date [...] creatinine, serum 1.09 mg/dL Clinical Lists Update: CBC,[facility] - Hematology platelet count 378 10*3/mm3 erythrocyte [...] volume, RBC 104.4 fL Clinical Lists Update: CBC,[facility] DR LEDE[facility] - Chemistry glucose, plasma [...] serum, direct 0.0 mg/dL Clinical Lists Update: CBC,[facility] DR [facility] - Hematology red blood [...] Rate (calc) 64 mL/min/1.73m2 glucose, plasma fasting 104 mg/dL glucose, plasma fasting 96 mg/dL glucose, plasma fasting 93 mg/dL glucose, plasma fasting 108 mg/dL glucose, plasma fasting 110 mg/dL anion gap, serum 13 anion gap, serum 16 anion gap, serum 17 anion gap, serum 15 anion gap, serum 12 sodium, serum 140 mmol/L sodium, serum 141 mmol/L sodium, serum 142 mmol/L sodium, serum 140 mmol/L sodium, serum 140 mmol/L bilirubin, serum, total 0.4 mg/dL bilirubin, serum, total 0.6 mg/dL bilirubin, serum, total 0.7 mg/dL bilirubin, serum, total 0.2 mg/dL bilirubin, serum, total 0.2 mg/dL alanine aminotransferase (SGPT), serum 103 U/L alanine aminotransferase (SGPT), serum 123 U/L alanine aminotransferase (SGPT), serum 44 U/L alanine aminotransferase (SGPT), serum 32 U/L alanine aminotransferase (SGPT), serum 22 U/L aspartate aminotransferase (SGOT), serum 85 U/L aspartate aminotransferase (SGOT), serum 204 U/L aspartate aminotransferase (SGOT), serum 43 U/L aspartate aminotransferase (SGOT), serum 37 U/L aspartate aminotransferase (SGOT), serum 27 U/L protein, total, serum 7.1 g/dL protein, total, serum 7.0 g/dL protein, total, serum 6.2 g/dL protein, total, serum 6.7 g/dL protein, total, serum 6.3 g/dL potassium, serum 4.3 mmol/L potassium, serum 4.2 mmol/L potassium, serum 3.5 mmol/L potassium, serum 4.2 mmol/L potassium, serum 4.1 mmol/L bilirubin, serum, direct 0.2 mg/dL bilirubin, serum, direct 0.2 mg/dL bilirubin, serum, direct 0.1 mg/dL bilirubin, serum, direct 0.1 mg/dL creatinine, serum 0.99 mg/dL creatinine, serum 0.99 mg/dL creatinine, serum 1.08 mg/dL creatinine, serum 1.01 mg/dL creatinine, serum 0.93 mg/dL carbon dioxide, venous blood 25 mmol/L carbon dioxide, venous blood 25 mmol/L carbon dioxide, venous blood 24 mmol/L carbon dioxide, venous blood 25 mmol/L carbon dioxide, venous blood 27 mmol/L chloride, serum 106 mmol/L chloride, serum 104 mmol/L chloride, serum 105 mmol/L chloride, serum 104 mmol/L chloride, serum 105 mmol/L calcium, serum 10.0 mg/dL calcium, serum 10.1 mg/dL calcium, serum 9.5 mg/dL calcium, serum 9.3 mg/dL calcium, serum 8.9 mg/dL urea nitrogen, blood 12 mg/dL urea nitrogen, blood 16 mg/dL urea nitrogen, blood 13 mg/dL urea nitrogen, blood 12 mg/dL urea nitrogen, blood 11 mg/dL alkaline phosphatase, serum 112 U/L alkaline phosphatase, serum 99 U/L alkaline phosphatase, serum 100 U/L alkaline phosphatase, serum 95 U/L alkaline phosphatase, serum 90 U/L albumin, serum 4.2 g/dL albumin, serum 4.4 g/dL albumin, serum 4.2 g/dL albumin, serum 4.1 g/dL albumin, serum 3.9 g/dL Clinical Lists Update: CBC,CMP,[facility] - Hematology erythrocyte (RBC) count 2.70 10*6/mm3 platelet count 345 10*3/mm3 platelet count 356 10*3/mm3 platelet count 334 10*3/mm3 platelet count 511 10*3/mm3 platelet count 485 10*3/mm3 hemoglobin, blood 11.8 g/dL hemoglobin, blood 11.5 g/dL hemoglobin, blood 11.5 g/dL hemoglobin, blood 8.0 g/dL hemoglobin, blood 8.2 g/dL hematocrit, blood 36.1 % hematocrit, blood 34.1 % hematocrit, blood 33.9 % hematocrit, blood 25.8 % hematocrit, blood 26.6 % red blood cell distribution width 16.5 % red blood cell distribution width 17.2 % red blood cell distribution width 13.7 % red blood cell distribution width 14.4 % red blood cell distribution width 16.3 % mean corpuscular volume, RBC 98.4 fL mean corpuscular volume, RBC 103.0 fL mean corpuscular volume, RBC 107.6 fL mean corpuscular volume, RBC 97.7 fL mean corpuscular volume, RBC 98.5 fL leukocyte count, blood 6.04 10*3/mm3 leukocyte count, blood 9.23 10*3/mm3 leukocyte count, blood 11.07 10*3/mm3 leukocyte count, blood 6.70 10*3/mm3 leukocyte count, blood 5.48 10*3/mm3 erythrocyte (RBC) count 3.67 10*6/mm3 erythrocyte (RBC) count 3.31 10*6/mm3 erythrocyte (RBC) count 3.15 10*6/mm3 erythrocyte (RBC) count 2.64 10*6/mm3 Clinical Lists Update: CBC,CMP,[facility] - Chemistry Estimated Glomerular Filtration Rate (calc) 48 mL/min/1.73m2 potassium, serum 4.2 mmol/L alanine aminotransferase (SGPT), serum 48 U/L alkaline phosphatase, serum 100 U/L albumin, serum 4.3 g/dL glucose, plasma fasting 108 mg/dL protein, total, serum 6.7 g/dL aspartate aminotransferase (SGOT), serum 48 U/L anion gap, serum 14 bilirubin, serum, direct 0.2 mg/dL creatinine, serum 1.20 mg/dL urea nitrogen, blood 17 mg/dL bilirubin, serum, total 0.7 mg/dL calcium, serum 9.8 mg/dL chloride, serum 104 mmol/L sodium, serum 140 mmol/L carbon dioxide, venous blood 26 mmol/L Clinical Lists Update: CBC,CMP,[facility] - Hematology leukocyte count, blood 7.37 10*3/mm3 red blood cell distribution width 13.8 % hematocrit, blood 34.5 % hemoglobin, blood 11.2 g/dL platelet count 454 10*3/mm3 erythrocyte (RBC) count 3.13 10*6/mm3 mean corpuscular volume, RBC 110.2 fL Clinical Lists Update: CBC,CMP,Chol,Trig,TSH,Free T4 - Chemistry albumin, serum 4.2 g/dL alkaline phosphatase, serum 104 U/L urea nitrogen, blood 16 mg/dL calcium, serum 9.5 mg/dL chloride, serum 103 mmol/L cholesterol, serum 210 mg/dL carbon dioxide, venous blood 26 mmol/L creatinine, serum 1.08 mg/dL thyroxine, serum, free 1.02 ng/dL potassium, serum 4.5 mmol/L protein, total, serum 6.9 g/dL aspartate aminotransferase (SGOT), serum 48 U/L alanine aminotransferase (SGPT), serum 37 U/L bilirubin, [...]
--- OUTSIDE RECORDS SUMMARY | 2018-10-13 09:41 | XMS REPORT | Clinical Summary ---
Author Author hilario vazquez DO, FACP Address [place] [id number] Phone Unavailable Allergies, Adverse Reactions, Alerts Allergy [...] TBDP 1 PO Q6hrs prn nausea ONDANSETRON 79624981699 Active Kateryna Villalpando LOMOTIL 2.5-0.025 MG TABS 1 PO TID prn DIPHENOXYLATE-ATROPINE 66549617120 Active Kateryna Villalpando LANSOPRAZOLE 30 MG CPDR 1 PO daily LANSOPRAZOLE 60831392506 Active Kateryna Villalpando SYNTHROID 200 MCG TABS 1 PO daily LEVOTHYROXINE SODIUM 53800703878 Active Kateryna Villalpando VITAMINS PLUS TABS 1 PO daily VIT-FE FUMARATE-FA TABS 84016698909 Active Taina Germain ALBUTEROL SULFATE 0.083 % NEBU SOLN 1 treatment TID prn ALBUTEROL SULFATE 63828398424 Active Taina Germain ZITHROMAX Z-STEPHON 250 MG TABS as directed AZITHROMYCIN 78952900390 Active Taina Germain SANDOSTATIN LAR DEPOT 10 MG KIT 1 injection monthly OCTREOTIDE ACETATE 26750132945 Active Taina Germain URSODIOL 300 MG CAPS 1 po TID URSODIOL 26075950805 Active Kateryna Villalpando LUVENA VAGINAL MOISTURIZER GEL use in vagina every third day VAGINAL MOISTURIZER 13792067859 Active Taina Germain ESTRACE 0.1 MG/GM CREA Apply 1/2 gram vaginally twice a week ESTRADIOL 18644107736 Active Kateryna Villalpando LIPITOR 40 MG TAB 1 po daily ATORVASTATIN CALCIUM 90786499105 Active Kateryna Villalpando GLEEVEC 400 MG TABS 1/2 tab PO QD IMATINIB MESYLATE 36465975683 Active Taina Germain VALTREX 1 GM TABS 1 PO BID for 5 days prn cold sores VALACYCLOVIR HCL 02528998858 Active Kateryna Villalpando Immunizations Vaccine Administration Date [...]
--- OUTSIDE RECORDS SUMMARY | 2018-10-13 09:41 | XMS REPORT | Clinical Summary ---
Author Author hilario vazquez DO, FACP Address [place] [phone] Phone Unavailable Allergies, Adverse Reactions, Alerts Allergy [...] TBDP 1 PO Q6hrs prn nausea ONDANSETRON 18252766342 Active Kateryna Villalpando LOMOTIL 2.5-0.025 MG TABS 1 PO TID prn DIPHENOXYLATE-ATROPINE 02041309267 Active Kateryna Villalpando LANSOPRAZOLE 30 MG CPDR 1 PO daily LANSOPRAZOLE 69112764645 Active Kateryna Villalpando SYNTHROID 200 MCG TABS 1 PO daily LEVOTHYROXINE SODIUM 73128959926 Active Kateryna Villalpando VITAMINS PLUS TABS 1 PO daily VIT-FE FUMARATE-FA TABS 99013034021 Active Taina Germain ALBUTEROL SULFATE 0.083 % NEBU SOLN 1 treatment TID prn ALBUTEROL SULFATE 47595488421 Active Taina Germain ZITHROMAX Z-STEPHON 250 MG TABS as directed AZITHROMYCIN 45430571747 Active Taina Germain SANDOSTATIN LAR DEPOT 10 MG KIT 1 injection monthly OCTREOTIDE ACETATE 40979265295 Active Taina Germain URSODIOL 300 MG CAPS 1 po TID URSODIOL 10624478001 Active Kateryna Villalpando LUVENA VAGINAL MOISTURIZER GEL use in vagina every third day VAGINAL MOISTURIZER 15567530582 Active Taina Germain ESTRACE 0.1 MG/GM CREA Apply 1/2 gram vaginally twice a week ESTRADIOL 88339187644 Active Kateryna Villalpando LIPITOR 40 MG TAB 1 po daily ATORVASTATIN CALCIUM 11157238392 Active Kateryna Villalpando GLEEVEC 400 MG TABS 1/2 tab PO QD IMATINIB MESYLATE 37637930781 Active Taina Germain VALTREX 1 GM TABS 1 PO BID for 5 days prn cold sores VALACYCLOVIR HCL 67138375411 Active Kateryna Villalpando Immunizations Vaccine Administration Date [...]
--- OUTSIDE RECORDS SUMMARY | 2018-10-13 09:42 | XMS REPORT | Clinical Summary ---
Author Author hilario vazquez DO, [place] [address] Phone Unavailable Allergies, Adverse Reactions, Alerts Allergy [...] TBDP 1 PO Q6hrs prn nausea ONDANSETRON 52693373072 Active Kateryna Villalpando LOMOTIL 2.5-0.025 MG TABS 1 PO TID prn DIPHENOXYLATE-ATROPINE 95248790438 Active Kateryna Villalpando LANSOPRAZOLE 30 MG CPDR 1 PO daily LANSOPRAZOLE 99648019770 Active Kateryna Villalpando SYNTHROID 200 MCG TABS 1 PO daily LEVOTHYROXINE SODIUM 62255686598 Active Kateryna Villalpando VITAMINS PLUS TABS 1 PO daily VIT-FE FUMARATE-FA TABS 92088250981 Active Taina Germain ALBUTEROL SULFATE 0.083 % NEBU SOLN 1 treatment TID prn ALBUTEROL SULFATE 10931150460 Active Taina Germain ZITHROMAX Z-STEPHON 250 MG TABS as directed AZITHROMYCIN 69811979541 Active Taina Germain SANDOSTATIN LAR DEPOT 10 MG KIT 1 injection monthly OCTREOTIDE ACETATE 22416951790 Active Taina Germain URSODIOL 300 MG CAPS 1 po TID URSODIOL 07070547457 Active Kateryna Villalpando LUVENA VAGINAL MOISTURIZER GEL use in vagina every third day VAGINAL MOISTURIZER 49745030213 Active Taina Germain ESTRACE 0.1 MG/GM CREA Apply 1/2 gram vaginally twice a week ESTRADIOL 53837183423 Active Kateryna Villalpando LIPITOR 40 MG TAB 1 po daily ATORVASTATIN CALCIUM 70446528159 Active Kateryna Villalpando GLEEVEC 400 MG TABS 1/2 tab PO QD IMATINIB MESYLATE 23461341535 Active Taina Germain VALTREX 1 GM TABS 1 PO BID for 5 days prn cold sores VALACYCLOVIR HCL 01954630541 Active Kateryna Villalpando Immunizations Vaccine Administration Date [...]
--- OUTSIDE RECORDS SUMMARY | 2018-10-13 09:42 | XMS REPORT | Clinical Summary ---
Author Author hilario vazquez DO, [place] [address] Phone Unavailable Allergies, Adverse Reactions, Alerts Allergy [...] TBDP 1 PO Q6hrs prn nausea ONDANSETRON 54549593479 Active Taina Germain LOMOTIL 2.5-0.025 MG TABS 1 PO TID prn DIPHENOXYLATE-ATROPINE 87996294848 Active Taina Germain GLEEVEC 400 MG TABS 1 PO daily IMATINIB MESYLATE 42237985854 Active Taina Germain LANSOPRAZOLE 30 MG CPDR 1 PO daily LANSOPRAZOLE 04371358740 Active Kateryna Villalpando SYNTHROID 200 MCG TABS 1 PO daily LEVOTHYROXINE SODIUM 52874905208 Active Kateryna Villalpando VITAMINS PLUS TABS 1 PO daily VIT-FE FUMARATE-FA TABS 42063131337 Active Taina Germain ALBUTEROL SULFATE 0.083 % NEBU SOLN 1 treatment TID prn ALBUTEROL SULFATE 89413229936 Active Taina Germain ZITHROMAX Z-STEPHON 250 MG TABS as directed AZITHROMYCIN 90256930486 Active Kateryna Villalpando SANDOSTATIN LAR DEPOT 10 MG KIT 1 injection monthly OCTREOTIDE ACETATE 89314749412 Active Taina Germain URSODIOL 300 MG CAPS 1 po TID URSODIOL 45407253924 Active Taina Germain LUVENA VAGINAL MOISTURIZER GEL use in vagina every third day VAGINAL MOISTURIZER 78878030059 Active Taina Germain ESTRACE 0.1 MG/GM CREA Apply 1/2 gram vaginally twice a week ESTRADIOL 93619905628 Active Taina Germain LIPITOR 40 MG TAB 1 po daily ATORVASTATIN CALCIUM 11985339145 Active Kateryna Villalpando CELEXA 20 MG TABS 1 PO daily CITALOPRAM HYDROBROMIDE 46108129914 Active Taina Germain Immunizations Vaccine Administration Date [...] temp weight E&M 167 [lb_av] Weight Measured Diagnostic Results Date Name [...] serum, direct 0.0 mg/dL Clinical Lists Update: CBC,CMP DR LEDEZMA [...] Rate (calc) 64 mL/min/1.73m2 glucose, plasma fasting 96 mg/dL glucose, plasma fasting 93 mg/dL glucose, plasma fasting 108 mg/dL glucose, plasma fasting 110 mg/dL anion gap, serum 16 anion gap, serum 17 anion gap, serum 15 anion gap, serum 12 sodium, serum 141 mmol/L sodium, serum 142 mmol/L sodium, serum 140 mmol/L sodium, serum 140 mmol/L bilirubin, serum, total 0.6 mg/dL bilirubin, serum, total 0.7 mg/dL bilirubin, serum, total 0.2 mg/dL bilirubin, serum, total 0.2 mg/dL alanine aminotransferase (SGPT), serum 123 U/L alanine aminotransferase (SGPT), serum 44 U/L alanine aminotransferase (SGPT), serum 32 U/L alanine aminotransferase (SGPT), serum 22 U/L aspartate aminotransferase (SGOT), serum 204 U/L aspartate aminotransferase (SGOT), serum 43 U/L aspartate aminotransferase (SGOT), serum 37 U/L aspartate aminotransferase (SGOT), serum 27 U/L protein, total, serum 7.0 g/dL protein, total, serum 6.2 g/dL protein, total, serum 6.7 g/dL protein, total, serum 6.3 g/dL potassium, serum 4.2 mmol/L potassium, serum 3.5 [...] blood 27 mmol/L chloride, serum 104 mmol/L chloride, serum 105 mmol/L chloride, serum 104 mmol/L chloride, serum 105 mmol/L calcium, serum 10.1 mg/dL calcium, serum 9.5 mg/dL calcium, serum 9.3 mg/dL calcium, serum 8.9 mg/dL urea nitrogen, blood 16 mg/dL urea nitrogen, blood 13 mg/dL urea nitrogen, blood 12 mg/dL urea nitrogen, blood 11 mg/dL alkaline phosphatase, serum 99 U/L alkaline phosphatase, serum 100 U/L alkaline phosphatase, serum 95 U/L alkaline phosphatase, serum 90 U/L albumin, serum 4.4 g/dL albumin, serum 4.2 g/dL albumin, serum 4.1 g/dL albumin, serum 3.9 g/dL Clinical Lists Update: CBC,CMP,Bili Direct - Hematology red blood cell distribution width 17.2 % hematocrit, blood 26.6 % hematocrit, blood 25.8 % hematocrit, blood 33.9 % hematocrit, blood 34.1 % hemoglobin, blood 8.2 g/dL hemoglobin, blood 8.0 g/dL hemoglobin, blood 11.5 g/dL hemoglobin, blood 11.5 g/dL platelet count 485 10*3/mm3 platelet count 511 10*3/mm3 platelet count 334 10*3/mm3 platelet count 356 10*3/mm3 erythrocyte (RBC) count 2.70 10*6/mm3 erythrocyte (RBC) count 2.64 10*6/mm3 erythrocyte (RBC) count 3.15 10*6/mm3 erythrocyte (RBC) count 3.31 10*6/mm3 leukocyte count, blood 5.48 10*3/mm3 leukocyte count, blood 6.70 10*3/mm3 leukocyte count, blood 11.07 10*3/mm3 leukocyte count, blood 9.23 10*3/mm3 mean corpuscular volume, RBC 98.5 fL mean corpuscular volume, RBC 97.7 fL mean corpuscular volume, RBC 107.6 fL red blood cell distribution width 13.7 % red blood cell distribution width 14.4 % red blood cell distribution width 16.3 % mean corpuscular volume, RBC 103.0 fL Clinical Lists Update: CBC,CMP,Bili Direct DR LEDEZMA LABS - Chemistry bilirubin, serum, total 0.7 mg/dL alkaline phosphatase, serum 100 U/L alanine aminotransferase (SGPT), serum 48 U/L aspartate aminotransferase (SGOT), serum 48 U/L protein, total, serum 6.7 g/dL potassium, serum 4.2 mmol/L bilirubin, serum, direct 0.2 mg/dL albumin, serum 4.3 g/dL sodium, serum 140 mmol/L anion gap, serum 14 glucose, plasma fasting 108 mg/dL Estimated Glomerular Filtration Rate (calc) 48 mL/min/1.73m2 urea nitrogen, blood 17 mg/dL calcium, serum 9.8 mg/dL chloride, serum 104 mmol/L carbon dioxide, venous blood 26 mmol/L creatinine, serum 1.20 mg/dL Clinical Lists Update: CBC,CMP,Bili Direct DR LEDEZMA LABS - Hematology red blood cell distribution width 13.8 % erythrocyte (RBC) count 3.13 10*6/mm3 leukocyte count, blood 7.37 10*3/mm3 hematocrit, blood 34.5 % hemoglobin, blood 11.2 g/dL mean corpuscular volume, RBC 110.2 fL platelet count 454 10*3/mm3 Clinical Lists Update: CBC,CMP,Bili Direct DR LEDEZMA LABS - Chemistry alkaline phosphatase, serum 102 U/L albumin, serum 3.8 g/dL Estimated Glomerular Filtration Rate (calc) 71 mL/min/1.73m2 glucose, plasma fasting 98 mg/dL anion gap, serum 13 sodium, serum 141 mmol/L bilirubin, serum, total 0.2 mg/dL alanine aminotransferase (SGPT), serum 20 U/L aspartate aminotransferase (SGOT), serum 29 U/L protein, total, serum 6.6 g/dL potassium, serum 4.5 mmol/L bilirubin, serum, direct 0.1 mg/dL creatinine, serum 0.85 mg/dL carbon dioxide, venous blood 27 mmol/L chloride, serum 106 mmol/L calcium, serum 9.3 mg/dL urea nitrogen, blood 14 mg/dL Clinical Lists Update: CBC,CMP,Bili Direct DR LEDEZMA LABS - Hematology red blood cell distribution width 16.5 % mean corpuscular volume, RBC 97.9 fL leukocyte count, blood 6.52 10*3/mm3 hematocrit, blood 28.4 % platelet count 529 10*3/mm3 hemoglobin, blood 8.7 g/dL erythrocyte (RBC) count 2.90 10*6/mm3 Clinical Lists Update: CBC,CMP,Chol,Trig,TSH,Free T4 - Chemistry [...] Hematology mean corpuscular volume, RBC 105.8 fL leukocyte count, blood 6.49 10*3/mm3 erythrocyte (RBC) count 2.94 10*6/mm3 red blood cell distribution width 13.0 % hemoglobin, blood 9.9 g/dL hematocrit, blood 31.1 % platelet count 498 10*3/mm3 Office Visit: Dr Germain's Check Up: Established Patient Visit - Chemistry Estimated Glomerular Filtration Rate (calc) 64 mL/min/1.73m2 albumin, serum 3.8 g/dL glucose, plasma fasting 97 mg/dL glucose, plasma fasting 107 mg/dL very low density lipoproteins 260 mg/dL cholesterol/HDL ratio, serum 10.1 anion gap, serum 11 anion gap, serum 12 anion gap, serum 16 sodium, serum 133 mmol/L sodium, serum 137 mmol/L sodium, serum 141 mmol/L triglyceride, serum, fasting 1298 mg/dL bilirubin, serum, total 0.5 mg/dL bilirubin, serum, total 0.6 mg/dL bilirubin, serum, total 0.2 mg/dL alanine aminotransferase (SGPT), serum 92 U/L alanine aminotransferase (SGPT), serum 125 U/L alanine aminotransferase (SGPT), serum 47 U/L aspartate aminotransferase (SGOT), serum 54 U/L aspartate aminotransferase (SGOT), serum 102 U/L aspartate aminotransferase (SGOT), serum 37 U/L protein, total, serum 6.5 g/dL protein, total, serum 6.4 g/dL potassium, serum 3.9 mmol/L potassium, serum 3.9 mmol/L potassium, serum 4.3 mmol/L LDL cholesterol, serum 13 mg/dL thyroid stimulating hormone, serum 1.60 u[iU]/mL hemoglobin A1C, blood, as % of total hemoglobin 4.90 % HDL cholesterol, serum 30 mg/dL thyroxine, serum, free 1.04 ng/dL bilirubin, serum, direct 0.0 mg/dL bilirubin, serum, direct 0.1 mg/dL bilirubin, serum, direct 0.1 mg/dL creatinine, serum 1.1 mg/dL creatinine, serum 1.0 mg/dL creatinine, serum 0.93 mg/dL carbon dioxide, venous blood 31.0 mmol/L carbon dioxide, venous blood 28.0 mmol/L carbon dioxide, venous blood 26 mmol/L cholesterol, serum 303 mg/dL chloride, serum 95 mmol/L chloride, serum 101 mmol/L chloride, serum 103 mmol/L calcium, serum 9.3 mg/dL calcium, serum 9.3 mg/dL calcium, serum 9.5 mg/dL urea nitrogen, blood 16 mg/dL urea nitrogen, blood 13 mg/dL urea nitrogen, blood 15 mg/dL alkaline phosphatase, serum 79 U/L alkaline phosphatase, serum 87 U/L alkaline phosphatase, serum 110 U/L albumin, serum 4.2 g/dL glucose, plasma fasting 81 mg/dL Office Visit: Dr Germain's Check Up: Established Patient Visit - Hematology leukocyte count, blood 7.20 10*3/mm3 erythrocyte (RBC) count 3.84 10*6/mm3 erythrocyte (RBC) count 3.53 10*6/mm3 erythrocyte (RBC) count 3.22 10*6/mm3 platelet count 342 10*3/mm3 platelet count 347 10*3/mm3 platelet count 385 10*3/mm3 hemoglobin, blood 12.3 g/dL hemoglobin, blood 11.8 g/dL hemoglobin, blood 11.7 g/dL hematocrit, blood 40 % hematocrit, blood 37 % hematocrit, blood 35.1 % red blood cell distribution width 17.5 % red blood cell distribution width 17.0 % red blood cell distribution width 13.8 % mean corpuscular volume, RBC 104 fL mean corpuscular volume, RBC 104 fL mean corpuscular volume, RBC 109.0 fL leukocyte count, blood 14.1 10*3/mm3 leukocyte count, blood 6.3 10*3/mm3
--- OUTSIDE RECORDS SUMMARY | 2018-10-13 09:43 | XMS REPORT | Clinical Summary ---
Author Author hilario vazquez DO, [place] [address] Phone Unavailable Allergies, Adverse Reactions, Alerts Allergy [...] TBDP 1 PO Q6hrs prn nausea ONDANSETRON 68566956922 Active Kateryna Villalpando LOMOTIL 2.5-0.025 MG TABS 1 PO TID prn DIPHENOXYLATE-ATROPINE 16381986423 Active Kateryna Villalpando LANSOPRAZOLE 30 MG CPDR 1 PO daily LANSOPRAZOLE 50407083928 Active Kateryna Villalpando SYNTHROID 200 MCG TABS 1 PO daily LEVOTHYROXINE SODIUM 07841982426 Active Kateryna Villalpando VITAMINS PLUS TABS 1 PO daily VIT-FE FUMARATE-FA TABS 98929762964 Active Taina Germain ALBUTEROL SULFATE 0.083 % NEBU SOLN 1 treatment TID prn ALBUTEROL SULFATE 32651565993 Active Taina Germain ZITHROMAX Z-STEPHON 250 MG TABS as directed AZITHROMYCIN 53031652550 Active Taina Germain SANDOSTATIN LAR DEPOT 10 MG KIT 1 injection monthly OCTREOTIDE ACETATE 36137822898 Active Taina Germain URSODIOL 300 MG CAPS 1 po TID URSODIOL 76458302593 Active Kateryna Villalpando LUVENA VAGINAL MOISTURIZER GEL use in vagina every third day VAGINAL MOISTURIZER 95916492818 Active Taina Germain ESTRACE 0.1 MG/GM CREA Apply 1/2 gram vaginally twice a week ESTRADIOL 04258352465 Active Kateryna Villalpando LIPITOR 40 MG TAB 1 po daily ATORVASTATIN CALCIUM 94762637013 Active Kateryna Villalpando GLEEVEC 400 MG TABS 1/2 tab PO QD IMATINIB MESYLATE 98189017161 Active Taina Germain VALTREX 1 GM TABS 1 PO BID for 5 days prn cold sores VALACYCLOVIR HCL 88294649024 Active Kateryna Villalpando Immunizations Vaccine Administration Date [...]
--- OUTSIDE RECORDS SUMMARY | 2018-10-13 09:44 | XMS REPORT | Clinical Summary ---
Author Author hilario vazquez DO, [place] [address] Phone Unavailable Allergies, Adverse Reactions, Alerts Allergy [...] TBDP 1 PO Q6hrs prn nausea ONDANSETRON 19561280046 Active Kateryna Villalpando LOMOTIL 2.5-0.025 MG TABS 1 PO TID prn DIPHENOXYLATE-ATROPINE 34847645264 Active Kateryna Villalpando LANSOPRAZOLE 30 MG CPDR 1 PO daily LANSOPRAZOLE 85767053052 Active Kateryna Villalpando SYNTHROID 200 MCG TABS 1 PO daily LEVOTHYROXINE SODIUM 10644537150 Active Kateryna Villalpando VITAMINS PLUS TABS 1 PO daily VIT-FE FUMARATE-FA TABS 85344903158 Active Taina Germain ALBUTEROL SULFATE 0.083 % NEBU SOLN 1 treatment TID prn ALBUTEROL SULFATE 80949135202 Active Taina Germain ZITHROMAX Z-STEPHON 250 MG TABS as directed AZITHROMYCIN 26967183924 Active Taina Germain SANDOSTATIN LAR DEPOT 10 MG KIT 1 injection monthly OCTREOTIDE ACETATE 96460987045 Active Taina Germain URSODIOL 300 MG CAPS 1 po TID URSODIOL 98525228364 Active Kateryna Villalpando LUVENA VAGINAL MOISTURIZER GEL use in vagina every third day VAGINAL MOISTURIZER 26056750464 Active Taina Germain ESTRACE 0.1 MG/GM CREA Apply 1/2 gram vaginally twice a week ESTRADIOL 52606749677 Active Kateryna Villalpando LIPITOR 40 MG TAB 1 po daily ATORVASTATIN CALCIUM 10694149033 Active Kateryna Villalpando GLEEVEC 400 MG TABS 1/2 tab PO QD IMATINIB MESYLATE 51080988789 Active Taina Germain VALTREX 1 GM TABS 1 PO BID for 5 days prn cold sores VALACYCLOVIR HCL 17249162807 Active Kateryna Villalpando Immunizations Vaccine Administration Date [...]
--- OUTSIDE RECORDS SUMMARY | 2018-10-13 09:44 | XMS REPORT | Clinical Summary ---
Author Author hilario vazquez DO, [place] [address] Phone Unavailable Allergies, Adverse Reactions, Alerts Allergy [...] TBDP 1 PO Q6hrs prn nausea ONDANSETRON 75279449020 Active Kateryna Villalpando LOMOTIL 2.5-0.025 MG TABS 1 PO TID prn DIPHENOXYLATE-ATROPINE 01110138676 Active Kateryna Villalpando LANSOPRAZOLE 30 MG CPDR 1 PO daily LANSOPRAZOLE 99178841312 Active Kateryna Villalpando SYNTHROID 200 MCG TABS 1 PO daily LEVOTHYROXINE SODIUM 86607880278 Active Kateryna Villalpando VITAMINS PLUS TABS 1 PO daily VIT-FE FUMARATE-FA TABS 03184330273 Active Taina Germain ALBUTEROL SULFATE 0.083 % NEBU SOLN 1 treatment TID prn ALBUTEROL SULFATE 93019891068 Active Taina Germain ZITHROMAX Z-STEPHON 250 MG TABS as directed AZITHROMYCIN 56241378545 Active Taina Germain SANDOSTATIN LAR DEPOT 10 MG KIT 1 injection monthly OCTREOTIDE ACETATE 12896619943 Active Taina Germain URSODIOL 300 MG CAPS 1 po TID URSODIOL 66769824752 Active Kateryna Villalpando LUVENA VAGINAL MOISTURIZER GEL use in vagina every third day VAGINAL MOISTURIZER 85931711085 Active Taina Germain ESTRACE 0.1 MG/GM CREA Apply 1/2 gram vaginally twice a week ESTRADIOL 31194633487 Active Kateryna Villalpando LIPITOR 40 MG TAB 1 po daily ATORVASTATIN CALCIUM 67631587736 Active Kateryna Villalpando GLEEVEC 400 MG TABS 1/2 tab PO QD IMATINIB MESYLATE 07760582353 Active Taina Germain VALTREX 1 GM TABS 1 PO BID for 5 days prn cold sores VALACYCLOVIR HCL 14812110242 Active Kateryna Villalpando Immunizations Vaccine Administration Date Value Standard Description pneumococcal immunization administered done pneumococcal polysaccharide vaccine, 23 valent Influenza vaccine done influenza virus vaccine, unspecified formulation Influenza vaccine 2012 done influenza virus vaccine, unspecified formulation [...] mL/min/1.73m2 Clinical Lists Update: CBC,CMP - Hematology red [...] count 515 10*3/mm3 platelet count 412 10*3/mm3 platelet count 461 10*3/mm3 hemoglobin, blood 9.1 g/dL hemoglobin, blood 11.0 g/dL hemoglobin, blood 12.2 g/dL hematocrit, blood 28.9 % hematocrit, blood 34.1 % hematocrit, blood 37.5 % Clinical Lists Update: CBC,CMP DR [facility] - Chemistry potassium, serum 4.4 mmol/L alanine aminotransferase (SGPT), serum 70 U/L bilirubin, serum, total 0.2 mg/dL sodium, serum 136 mmol/L anion gap, serum 16 glucose, plasma fasting 102 mg/dL Estimated Glomerular Filtration Rate (calc) 57 mL/min/1.73m2 urea nitrogen, blood 19 mg/dL alkaline phosphatase, serum 111 U/L albumin, serum 4.4 g/dL protein, total, serum 8.2 g/dL aspartate aminotransferase (SGOT), serum 61 U/L bilirubin, serum, direct 0.2 mg/dL creatinine, serum 1.02 mg/dL carbon dioxide, venous blood 25 mmol/L chloride, serum 99 mmol/L calcium, serum 10.1 mg/dL Clinical Lists Update: CBC,CMP DR [facility] - Hematology red blood cell distribution width 14.0 % erythrocyte (RBC) count 3.53 10*6/mm3 leukocyte count, blood 7.60 10*3/mm3 mean corpuscular volume, RBC 102.3 fL hematocrit, blood 36.1 % hemoglobin, blood 12.1 g/dL platelet count 425 10*3/mm3 Clinical Lists Update: CBC,CMP,BILI DIRECT - Chemistry anion gap, serum 11 glucose, plasma fasting 101 mg/dL bilirubin, serum, total 0.4 mg/dL alanine aminotransferase (SGPT), serum 51 U/L aspartate aminotransferase (SGOT), serum 53 U/L sodium, serum 138 mmol/L Estimated Glomerular Filtration Rate (calc) 54 mL/min/1.73m2 urea nitrogen, blood 13 mg/dL calcium, serum 9.7 mg/dL chloride, serum 104 mmol/L carbon dioxide, venous blood 27 mmol/L creatinine, serum 1.08 mg/dL alkaline phosphatase, serum 98 U/L albumin, serum 4.2 g/dL protein, total, serum 6.3 g/dL potassium, serum 4.3 mmol/L Clinical Lists Update: CBC,CMP,BILI DIRECT - Hematology leukocyte count, blood 6.48 10*3/mm3 mean corpuscular volume, RBC 109.0 fL red blood cell distribution width 13.5 % platelet count 321 10*3/mm3 erythrocyte (RBC) count 3.00 10*6/mm3 hematocrit, blood 32.7 % hemoglobin, blood 10.9 g/dL Clinical Lists Update: CBC,CMP,Bili Direct - Chemistry glucose, plasma fasting 115 mg/dL anion gap, [...] U/L aspartate aminotransferase (SGOT), serum 37 U/L urea nitrogen, blood 12 mg/dL urea nitrogen, blood 11 mg/dL urea nitrogen, blood 12 mg/dL urea nitrogen, blood 15 mg/dL alkaline phosphatase, serum 95 U/L alkaline phosphatase, serum 90 U/L alkaline phosphatase, serum 100 U/L alkaline phosphatase, serum 106 U/L albumin, serum 4.1 g/dL albumin, serum 3.9 g/dL albumin, serum 4.0 g/dL albumin, serum 4.2 g/dL protein, total, serum 6.7 g/dL protein, [...] mmol/L calcium, serum 9.3 mg/dL calcium, serum 8.9 mg/dL calcium, serum 94 mg/dL calcium, serum 9.7 mg/dL Estimated Glomerular Filtration Rate (calc) 58 mL/min/1.73m2 Estimated Glomerular Filtration Rate (calc) 64 mL/min/1.73m2 Estimated Glomerular Filtration Rate (calc) 59 mL/min/1.73m2 Estimated Glomerular Filtration Rate (calc) 61 mL/min/1.73m2 glucose, plasma fasting 108 mg/dL glucose, plasma fasting 110 mg/dL glucose, plasma fasting 94 mg/dL Clinical Lists Update: CBC,CMP,Bili Direct - Hematology platelet count 511 10*3/mm3 platelet count 485 10*3/mm3 platelet count 504 10*3/mm3 platelet count 483 10*3/mm3 hemoglobin, blood 8.0 g/dL hemoglobin, blood 8.2 g/dL hemoglobin, blood 9.6 g/dL hemoglobin, blood 10.8 g/dL hematocrit, blood 25.8 % hematocrit, blood 26.6 % hematocrit, blood 30.6 % hematocrit, blood 33.9 % red blood cell distribution width 14.4 [...] 3.12 10*6/mm3 erythrocyte (RBC) count 3.48 10*6/mm3 Clinical Lists Update: CBC,CMP,Bili Direct DR [facility] - Chemistry potassium, serum 4.2 mmol/L carbon dioxide, venous blood 26 mmol/L protein, total, serum 6.7 g/dL urea nitrogen, blood 17 mg/dL creatinine, serum 1.20 mg/dL sodium, serum 140 mmol/L anion gap, serum 14 alkaline phosphatase, serum 100 U/L glucose, plasma fasting 108 mg/dL albumin, serum 4.3 g/dL Estimated Glomerular Filtration Rate (calc) 48 mL/min/1.73m2 alanine aminotransferase (SGPT), serum 48 U/L calcium, serum 9.8 mg/dL bilirubin, serum, total 0.7 mg/dL chloride, serum 104 mmol/L aspartate aminotransferase (SGOT), serum 48 U/L bilirubin, serum, direct 0.2 mg/dL Clinical Lists Update: CBC,CMP,Bili Direct DR [facility] - Hematology platelet count 454 10*3/mm3 erythrocyte (RBC) count 3.13 10*6/mm3 leukocyte count, blood 7.37 10*3/mm3 mean corpuscular volume, RBC 110.2 fL red blood cell distribution width 13.8 % hematocrit, blood 34.5 % hemoglobin, blood 11.2 g/dL Clinical Lists Update: CBC,CMP,Bili Direct DR [facility] - Chemistry protein, total, serum 6.6 g/dL potassium, serum 4.5 mmol/L bilirubin, serum, direct 0.1 mg/dL alanine aminotransferase (SGPT), serum 20 U/L aspartate aminotransferase (SGOT), serum 29 U/L bilirubin, serum, total 0.2 mg/dL sodium, serum 141 mmol/L anion gap, serum 13 urea nitrogen, blood 14 mg/dL creatinine, serum 0.85 mg/dL carbon dioxide, venous blood 27 mmol/L chloride, serum 106 mmol/L calcium, serum 9.3 mg/dL albumin, serum 3.8 g/dL Estimated Glomerular Filtration Rate (calc) 71 mL/min/1.73m2 alkaline phosphatase, serum 102 U/L glucose, plasma fasting 98 mg/dL Clinical Lists Update: CBC,CMP,Bili Direct DR [facility] - Hematology red blood cell distribution width 16.5 % platelet count 529 10*3/mm3 mean corpuscular volume, RBC 97.9 fL hematocrit, blood 28.4 % leukocyte count, blood 6.52 10*3/mm3 hemoglobin, blood 8.7 g/dL erythrocyte (RBC) count 2.90 10*6/mm3 Clinical Lists Update: CBC,CMP,Chol,Trig,TSH,Free T4 - Chemistry thyroxine, serum, free 1.02 ng/dL alanine aminotransferase (SGPT), serum 37 U/L bilirubin, serum, total 0.3 mg/dL triglyceride, serum, fasting 475 mg/dL sodium, serum 139 mmol/L anion gap, serum 15 glucose, plasma fasting 114 mg/dL urea nitrogen, blood 16 mg/dL alkaline phosphatase, serum 104 U/L albumin, serum 4.2 g/dL protein, total, serum 6.9 g/dL potassium, serum 4.5 mmol/L thyroid stimulating hormone, serum 4.30 u[iU]/mL aspartate aminotransferase (SGOT), serum 48 U/L creatinine, serum 1.08 mg/dL carbon dioxide, venous blood 26 mmol/L cholesterol, serum 210 mg/dL chloride, serum 103 mmol/L calcium, serum 9.5 mg/dL Estimated Glomerular Filtration Rate (calc) 54 mL/min/1.73m2 Clinical Lists Update: CBC,CMP,Chol,Trig,TSH,Free T4 - Hematology red blood cell distribution width 13.0 % erythrocyte (RBC) count 2.94 10*6/mm3 leukocyte count, blood 6.49 10*3/mm3 mean corpuscular volume, RBC 105.8 fL hematocrit, blood 31.1 % hemoglobin, blood 9.9 g/dL platelet count 498 10*3/mm3 Office Visit: Dr [...]
--- OUTSIDE RECORDS SUMMARY | 2018-10-13 09:45 | XMS REPORT | Clinical Summary ---
Author Author hilario vazquez DO, [place] [address] Phone Unavailable Allergies, Adverse Reactions, Alerts Allergy [...] TBDP 1 PO Q6hrs prn nausea ONDANSETRON 83406134306 Active Kateryna Villalpando LOMOTIL 2.5-0.025 MG TABS 1 PO TID prn DIPHENOXYLATE-ATROPINE 96445242415 Active Kateryna Villalpando LANSOPRAZOLE 30 MG CPDR 1 PO daily LANSOPRAZOLE 57212876392 Active Kateryna Villalpando SYNTHROID 200 MCG TABS 1 PO daily LEVOTHYROXINE SODIUM 66288470741 Active Kateryna Villalpando VITAMINS PLUS TABS 1 PO daily VIT-FE FUMARATE-FA TABS 34013456678 Active Taina Germain ALBUTEROL SULFATE 0.083 % NEBU SOLN 1 treatment TID prn ALBUTEROL SULFATE 29543053113 Active Taina Germain ZITHROMAX Z-STEPHON 250 MG TABS as directed AZITHROMYCIN 03810864210 Active Taina Germain SANDOSTATIN LAR DEPOT 10 MG KIT 1 injection monthly OCTREOTIDE ACETATE 35004883978 Active aTina Germain URSODIOL 300 MG CAPS 1 po TID URSODIOL 84738099245 Active Kateryna Villalpando LUVENA VAGINAL MOISTURIZER GEL use in vagina every third day VAGINAL MOISTURIZER 63170749245 Active Taina Germain ESTRACE 0.1 MG/GM CREA Apply 1/2 gram vaginally twice a week ESTRADIOL 30812510018 Active Kateryna Villalpando LIPITOR 40 MG TAB 1 po daily ATORVASTATIN CALCIUM 39395980436 Active Kateryna Villalpando GLEEVEC 400 MG TABS 1/2 tab PO QD IMATINIB MESYLATE 76725491461 Active Taina Germain VALTREX 1 GM TABS 1 PO BID for 5 days prn cold sores VALACYCLOVIR HCL 16875623399 Active Kateryna Villalpando Immunizations Vaccine Administration Date [...]
--- OUTSIDE RECORDS SUMMARY | 2018-10-13 09:45 | XMS REPORT | Clinical Summary ---
Author Author hilario vazquez DO, [place] [address] Phone Unavailable Allergies, Adverse Reactions, Alerts Allergy [...] TBDP 1 PO Q6hrs prn nausea ONDANSETRON 97476086153 Active Kateryna Villalpando LOMOTIL 2.5-0.025 MG TABS 1 PO TID prn DIPHENOXYLATE-ATROPINE 82366945002 Active Kateryna Villalpando LANSOPRAZOLE 30 MG CPDR 1 PO daily LANSOPRAZOLE 67436924618 Active Kateryna Villalpando SYNTHROID 200 MCG TABS 1 PO daily LEVOTHYROXINE SODIUM 76124584166 Active Kateryna Villalpando VITAMINS PLUS TABS 1 PO daily VIT-FE FUMARATE-FA TABS 04087806854 Active Taina Germain ALBUTEROL SULFATE 0.083 % NEBU SOLN 1 treatment TID prn ALBUTEROL SULFATE 22849923205 Active Taina Germain ZITHROMAX Z-STEPHON 250 MG TABS as directed AZITHROMYCIN 35920208020 Active Taina Germain SANDOSTATIN LAR DEPOT 10 MG KIT 1 injection monthly OCTREOTIDE ACETATE 43880026726 Active Taina Germain URSODIOL 300 MG CAPS 1 po TID URSODIOL 03747763325 Active Kateryna Villalpando LUVENA VAGINAL MOISTURIZER GEL use in vagina every third day VAGINAL MOISTURIZER 35075009716 Active Taina Germain ESTRACE 0.1 MG/GM CREA Apply 1/2 gram vaginally twice a week ESTRADIOL 10011645752 Active Kateryna Villalpando LIPITOR 40 MG TAB 1 po daily ATORVASTATIN CALCIUM 42287897095 Active Kateryna Villalpando GLEEVEC 400 MG TABS 1/2 tab PO QD IMATINIB MESYLATE 38429664747 Active Taina Germain VALTREX 1 GM TABS 1 PO BID for 5 days prn cold sores VALACYCLOVIR HCL 83856837381 Active Kateryna Villalpando Immunizations Vaccine Administration Date [...] Rate (calc) 58 mL/min/1.73m2 Clinical Lists Update: CBC,[facility] - Hematology red blood cell distribution width [...] hematocrit, blood 37.5 % Clinical Lists Update: CBC,[facility] DR [facility] - Chemistry potassium, serum [...]
--- OUTSIDE RECORDS SUMMARY | 2018-10-13 09:46 | XMS REPORT | Clinical Summary ---
Author Author hilario vazquez DO, [place] [address] Phone Unavailable Allergies, Adverse Reactions, Alerts Allergy Name Reaction Description Start Date Severity Status Provider No Known Allergies Taina Germani Conditions or Problems Problem Name Problem Code [...] TBDP 1 PO Q6hrs prn nausea ONDANSETRON 28965755611 Active Kateryna Villalpando LOMOTIL 2.5-0.025 MG TABS 1 PO TID prn DIPHENOXYLATE-ATROPINE 76075837925 Active Kateryna Villalpando LANSOPRAZOLE 30 MG CPDR 1 PO daily LANSOPRAZOLE 06734207956 Active Kateryna Villalpando SYNTHROID 200 MCG TABS 1 PO daily LEVOTHYROXINE SODIUM 28501984951 Active Kateryna Villalpando VITAMINS PLUS TABS 1 PO daily VIT-FE FUMARATE-FA TABS 54317307437 Active Taina Germain ALBUTEROL SULFATE 0.083 % NEBU SOLN 1 treatment TID prn ALBUTEROL SULFATE 55219495990 Active Taina Germain ZITHROMAX Z-STEPHON 250 MG TABS as directed AZITHROMYCIN 58397716382 Active Taina Germain SANDOSTATIN LAR DEPOT 10 MG KIT 1 injection monthly OCTREOTIDE ACETATE 92985326573 Active Taina Germain URSODIOL 300 MG CAPS 1 po TID URSODIOL 24154886888 Active Kateryna Villalpando LUVENA VAGINAL MOISTURIZER GEL use in vagina every third day VAGINAL MOISTURIZER 72613033558 Active Taina Germain ESTRACE 0.1 MG/GM CREA Apply 1/2 gram vaginally twice a week ESTRADIOL 12634597383 Active Kateryna Villalpando LIPITOR 40 MG TAB 1 po daily ATORVASTATIN CALCIUM 38534931770 Active Kateryna Villalpando GLEEVEC 400 MG TABS 1/2 tab PO QD IMATINIB MESYLATE 29165977960 Active Taina Germain VALTREX 1 GM TABS 1 PO BID for 5 days prn cold sores VALACYCLOVIR HCL 19466472070 Active Kateryna Villalpando Immunizations Vaccine Administration Date [...]
--- OUTSIDE RECORDS SUMMARY | 2018-10-13 09:47 | XMS REPORT | Clinical Summary ---
Author Author hilario vazquez DO, [place] [address] Phone Unavailable Allergies, Adverse Reactions, Alerts Allergy [...] TBDP 1 PO Q6hrs prn nausea ONDANSETRON 38256315281 Active Kateryna Villalpando LOMOTIL 2.5-0.025 MG TABS 1 PO TID prn DIPHENOXYLATE-ATROPINE 93965909704 Active Kateryna Villalpando LANSOPRAZOLE 30 MG CPDR 1 PO daily LANSOPRAZOLE 57040491117 Active Kateryna Villalpando SYNTHROID 200 MCG TABS 1 PO daily LEVOTHYROXINE SODIUM 87843503736 Active Kateryna Villalpando VITAMINS PLUS TABS 1 PO daily VIT-FE FUMARATE-FA TABS 76261125199 Active Taina Germain ALBUTEROL SULFATE 0.083 % NEBU SOLN 1 treatment TID prn ALBUTEROL SULFATE 66186881427 Active Taina Germain ZITHROMAX Z-STEPHON 250 MG TABS as directed AZITHROMYCIN 71255016699 Active Taina Germain SANDOSTATIN LAR DEPOT 10 MG KIT 1 injection monthly OCTREOTIDE ACETATE 01010113058 Active Taina Germain URSODIOL 300 MG CAPS 1 po TID URSODIOL 00077657346 Active Kateryna Villalpando LUVENA VAGINAL MOISTURIZER GEL use in vagina every third day VAGINAL MOISTURIZER 90448659758 Active Taina Germain ESTRACE 0.1 MG/GM CREA Apply 1/2 gram vaginally twice a week ESTRADIOL 18556364369 Active Kateryna Villalpando LIPITOR 40 MG TAB 1 po daily ATORVASTATIN CALCIUM 93590966900 Active Kateryna Villalpando GLEEVEC 400 MG TABS 1/2 tab PO QD IMATINIB MESYLATE 89949980000 Active Taina Germain VALTREX 1 GM TABS 1 PO BID for 5 days prn cold sores VALACYCLOVIR HCL 93581974934 Active Kateryna Villalpando Immunizations Vaccine Administration Date [...]
--- OUTSIDE RECORDS SUMMARY | 2018-10-13 09:47 | XMS REPORT | Clinical Summary ---
Author Author hilario vazquez DO, FACP Address [place] [id number] Phone Unavailable Allergies, Adverse Reactions, Alerts Allergy [...] TBDP 1 PO Q6hrs prn nausea ONDANSETRON 47673610477 Active Kateryna Villalpando LOMOTIL 2.5-0.025 MG TABS 1 PO TID prn DIPHENOXYLATE-ATROPINE 97980110409 Active Kateryna Villalpando LANSOPRAZOLE 30 MG CPDR 1 PO daily LANSOPRAZOLE 81190158041 Active Kateryna Villalpando SYNTHROID 200 MCG TABS 1 PO daily LEVOTHYROXINE SODIUM 59725033618 Active Kateryna Villalpando VITAMINS PLUS TABS 1 PO daily VIT-FE FUMARATE-FA TABS 56283837280 Active Taina Germain ALBUTEROL SULFATE 0.083 % NEBU SOLN 1 treatment TID prn ALBUTEROL SULFATE 49552143175 Active Taina Germain ZITHROMAX Z-STEPHON 250 MG TABS as directed AZITHROMYCIN 72508417417 Active Taina Germain SANDOSTATIN LAR DEPOT 10 MG KIT 1 injection monthly OCTREOTIDE ACETATE 93836110624 Active Taina Germain URSODIOL 300 MG CAPS 1 po TID URSODIOL 64004675134 Active Kateryna Villalpando LUVENA VAGINAL MOISTURIZER GEL use in vagina every third day VAGINAL MOISTURIZER 68644899402 Active Taina Germain ESTRACE 0.1 MG/GM CREA Apply 1/2 gram vaginally twice a week ESTRADIOL 63740252334 Active Kateryna Villalpando LIPITOR 40 MG TAB 1 po daily ATORVASTATIN CALCIUM 94379788830 Active Kateryna Villalpando GLEEVEC 400 MG TABS 1/2 tab PO QD IMATINIB MESYLATE 20949676046 Active Taina Germain VALTREX 1 GM TABS 1 PO BID for 5 days prn cold sores VALACYCLOVIR HCL 86500133931 Active Kateryna Villalpando Immunizations Vaccine Administration Date [...]
--- OUTSIDE RECORDS SUMMARY | 2018-10-13 09:48 | XMS REPORT | Continuity of Care Document ---
Author Author [facility] Organization [facility] Address Unknown Phone Unavailable Allergies Active Description Code Type Severity Reaction Onset Reported/Identified Relationship to Patient Clinical Status Yes No Known Drug Allergies [id number] Drug Allergy Unknown N/A 10/08/2015 Medications There is no data. 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 10/11/2015 ANA LOOMIS MALA Ot E03.9 HYPOTHYROIDISM, UNSPECIFIED 10/11/2015 ANA LOOMIS MALA Ot E78.5 HYPERLIPIDEMIA, UNSPECIFIED 10/11/2015 ANA LOOMIS MALA Ot F32.9 MAJOR DEPRESSIVE DISORDER, SINGLE EPISOD 10/11/2015 ANA LOOMIS MALA Ot R50.9 FEVER, UNSPECIFIED 10/11/2015 ANA LOOMIS MALA Ot 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 02/22/2016 NIVIA PENA MD Ot R10.11 02/22/2016 NIVIA PENA MD Ot R74.0 03/04/2016 NIVIA PENA MD Ot R10.11 03/04/2016 NIVIA PENA MD Ot R74.0 01/08/2017 CECIL HERNANDEZ Ot L03.811 CELLULITIS OF HEAD [ANY PART, EXCEPT FAC 01/08/2017 NIVIA PENA MD Ot R10.11 RIGHT UPPER QUADRANT PAIN 01/08/2017 NIVIA PENA MD Ot R74.0 NONSPEC ELEV OF LEVELS OF TRANSAMNS LA 01/15/2017 NIVIA PENA MD Ot R10.11 RIGHT UPPER QUADRANT PAIN 01/15/2017 NIVIA PENA MD Ot R74.0 NONSPEC ELEV OF LEVELS OF TRANSAMNS LA 07/29/2017 NIVIA PENA MD Ot R10.11 RIGHT UPPER QUADRANT PAIN 07/29/2017 NIVIA PENA MD Ot R74.0 NONSPEC ELEV OF LEVELS OF TRANSAMNS LA 07/31/2017 PEREZ DO, MALA Ot E04.1 NONTOXIC SINGLE THYROID NODULE 08/14/2017 ANA DO MALA Ot E04.1 NONTOXIC SINGLE THYROID NODULE 08/07/2018 ANA DO, MALA Ot 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, UNSPECIFIED, NOT HAVIN 08/07/2018 ANA DO MALA Ot D72.823 LEUKEMOID REACTION 08/07/2018 ANA DO MALA Ot E03.9 HYPOTHYROIDISM, UNSPECIFIED 08/07/2018 PEREZ DO, MALA Ot E78.00 PURE HYPERCHOLESTEROLEMIA, UNSPECIFIED 08/07/2018 PEREZ DO MALA Ot J20.9 ACUTE BRONCHITIS, UNSPECIFIED 08/07/2018 PEREZ DO MALA Ot K21.9 GASTRO-ESOPHAGEAL REFLUX DISEASE WITHOUT 08/07/2018 ANA DO MALA Ot R06.2 WHEEZING 08/07/2018 ANA DO MALA Ot R50.9 FEVER, UNSPECIFIED 08/07/2018 ANA LOOMIS MALA Ot R74.8 ABNORMAL LEVELS OF OTHER SERUM ENZYMES 08/07/2018 ANA LOOMIS MALA Ot R80.9 PROTEINURIA, UNSPECIFIED 08/07/2018 ANA DO MALA Ot Z92.21 PERSONAL HISTORY OF ANTINEOPLASTIC CHEMO 08/07/2018 ANA LOOMIS MALA Ot Z92.3 PERSONAL HISTORY OF IRRADIATION 10/09/2018 ANA LOOMIS MALA Ot C95.91 LEUKEMIA, UNSPECIFIED, IN REMISSION 10/09/2018 ANA LOOMIS MALA Ot D72.823 LEUKEMOID REACTION 10/09/2018 ANA LOOMIS MALA Ot E03.9 HYPOTHYROIDISM, UNSPECIFIED 10/09/2018 ANA DO MALA Ot E78.00 PURE HYPERCHOLESTEROLEMIA, UNSPECIFIED 10/09/2018 ANA DO MALA Ot F51.01 PRIMARY INSOMNIA 10/09/2018 ANA DO MALA Ot J18.1 LOBAR PNEUMONIA, UNSPECIFIED ORGANISM 10/09/2018 ANA DO MALA Ot J20.9 ACUTE BRONCHITIS, UNSPECIFIED 10/09/2018 PEREZ DO MALA Ot K21.9 GASTRO-ESOPHAGEAL REFLUX DISEASE WITHOUT 10/09/2018 ANA DO, MALA Ot K59.01 SLOW TRANSIT CONSTIPATION 10/09/2018 MALA PEREZ DO Ot K75.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 (RICHARD) 10/09/2018 MALA PEREZ DO Ot M19.91 PRIMARY OSTEOARTHRITIS, UNSPECIFIED SITE 10/09/2018 KIMBERLY PEREZ DOI Ot R06.2 WHEEZING 10/09/2018 KIMBERLY PEREZ DOI Ot R94.5 ABNORMAL RESULTS OF LIVER FUNCTION STUDI 10/09/2018 MALA PEREZ DO Ot T38.0X5A ADVERSE EFFECT OF GLUCOCORT/SYNTH ANALOG 10/09/2018 KIMBERLY PEREZ DOI Ot Z92.21 PERSONAL HISTORY OF ANTINEOPLASTIC CHEMO 10/09/2018 KIMBERLY PEREZ DOI Ot Z92.3 PERSONAL HISTORY OF IRRADIATION 10/09/2018 MALA PEREZ DO Ot 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 10/10/2018 MALA PEREZ DO Ot C95.91 LEUKEMIA, UNSPECIFIED, IN REMISSION 10/10/2018 KIMBERLY PEREZ DOI Ot D72.823 LEUKEMOID REACTION 10/10/2018 MALA PEREZ DO Ot E03.9 HYPOTHYROIDISM, UNSPECIFIED 10/10/2018 KIMBERLY PEREZ DOI Ot E78.00 PURE HYPERCHOLESTEROLEMIA, UNSPECIFIED 10/10/2018 KIMBERLY PEREZ DOI Ot F51.01 PRIMARY INSOMNIA 10/10/2018 MALA PEREZ DO Ot J18.1 LOBAR PNEUMONIA, UNSPECIFIED ORGANISM 10/10/2018 KIMBERLY PEREZ DOI Ot J20.9 ACUTE BRONCHITIS, UNSPECIFIED 10/10/2018 KIMBERLY PEREZ DOI Ot K21.9 GASTRO-ESOPHAGEAL REFLUX DISEASE WITHOUT 10/10/2018 KIMBERLY PEREZ DOI Ot K59.01 SLOW TRANSIT CONSTIPATION 10/10/2018 MALA PEREZ DO Ot K75.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 (RICHARD) 10/10/2018 MALA PEREZ DO Ot M19.91 PRIMARY OSTEOARTHRITIS, UNSPECIFIED SITE 10/10/2018 MALA PEREZ DO Ot R06.2 WHEEZING 10/10/2018 MALA PEREZ DO Ot R94.5 ABNORMAL RESULTS OF LIVER FUNCTION STUDI 10/10/2018 MALA PEREZ DO Ot T38.0X5A ADVERSE EFFECT OF GLUCOCORT/SYNTH ANALOG 10/10/2018 MALA PEREZ DO Ot 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.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 HISTORY OF ANTINEOPLASTIC CHEMO 10/10/2018 KIMBERLY PEREZ DOI Ot Z92.3 PERSONAL HISTORY OF IRRADIATION 10/10/2018 MALA PEREZ DO Ot 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 10/13/2018 MALA PEREZ DO Ot C95.91 LEUKEMIA, UNSPECIFIED, IN REMISSION 10/13/2018 ANA LOOMIS MALA Ot D72.823 LEUKEMOID REACTION 10/13/2018 ANA LOOMIS MALA Ot E03.9 HYPOTHYROIDISM, UNSPECIFIED 10/13/2018 ANA LOOMIS MALA Ot E78.00 PURE HYPERCHOLESTEROLEMIA, UNSPECIFIED 10/13/2018 NAA LOOMIS MALA Ot F51.01 PRIMARY INSOMNIA 10/13/2018 ANA LOOMIS MALA Ot J18.1 LOBAR PNEUMONIA, UNSPECIFIED ORGANISM 10/13/2018 ANA LOOMIS MALA Ot J20.9 ACUTE BRONCHITIS, UNSPECIFIED 10/13/2018 ANA LOOMIS MALA Ot K21.9 GASTRO-ESOPHAGEAL REFLUX DISEASE WITHOUT 10/13/2018 ANA LOOMIS MALA Ot K59.01 SLOW TRANSIT CONSTIPATION 10/13/2018 ANA LOOMIS MALA Ot K75.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 (RICHARD) 10/13/2018 ANA LOOMIS MALA Ot M19.91 PRIMARY OSTEOARTHRITIS, UNSPECIFIED SITE 10/13/2018 KIMBERLY PEREZ DOI Ot R06.2 WHEEZING 10/13/2018 MALA PEREZ DO Ot R94.5 ABNORMAL RESULTS OF LIVER FUNCTION STUDI 10/13/2018 ANA LOOMIS MALA Ot T38.0X5A ADVERSE EFFECT OF GLUCOCORT/SYNTH ANALOG 10/13/2018 MALA PEREZ DO Ot 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.21 PERSONAL HISTORY OF ANTINEOPLASTIC CHEMO 10/13/2018 MALA PEREZ DO Ot Z92.3 PERSONAL HISTORY OF IRRADIATION 10/13/2018 MALA PEREZ DO Ot 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 10/13/2018 ANA LOOMIS MALA Ot C95.91 LEUKEMIA, UNSPECIFIED, IN REMISSION 10/13/2018 ANA LOOMIS MALA Ot D72.823 LEUKEMOID REACTION 10/13/2018 ANA LOOMIS MALA Ot E03.9 HYPOTHYROIDISM, UNSPECIFIED 10/13/2018 ANA LOOMIS MALA Ot E78.00 PURE HYPERCHOLESTEROLEMIA, UNSPECIFIED 10/13/2018 ANA LOOMIS MALA Ot F51.01 PRIMARY INSOMNIA 10/13/2018 MALA PEREZ DO Ot J18.1 LOBAR PNEUMONIA, UNSPECIFIED ORGANISM 10/13/2018 KIMBERLY PEREZ DOI Ot J20.9 ACUTE BRONCHITIS, UNSPECIFIED 10/13/2018 KIMBERLY PEREZ DOI Ot K21.9 GASTRO-ESOPHAGEAL REFLUX DISEASE WITHOUT 10/13/2018 KIMBERLY PEREZ DOI Ot K59.01 SLOW TRANSIT CONSTIPATION 10/13/2018 KIMBERLY PEREZ DOI Ot K75.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 (RICHARD) 10/13/2018 KIMBERLY PEREZ DOI Ot M19.91 PRIMARY OSTEOARTHRITIS, UNSPECIFIED SITE 10/13/2018 KIMBERLY PEREZ DOI Ot R06.2 WHEEZING 10/13/2018 MALA PEREZ DO Ot R94.5 ABNORMAL RESULTS OF LIVER FUNCTION STUDI 10/13/2018 MALA PEREZ DO Ot T38.0X5A ADVERSE EFFECT OF GLUCOCORT/SYNTH ANALOG 10/13/2018 MALA PEREZ DO Ot 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.21 PERSONAL HISTORY OF ANTINEOPLASTIC CHEMO 10/13/2018 MALA PEREZ DO Ot Z92.3 PERSONAL HISTORY OF IRRADIATION 10/13/2018 MALA PEREZ DO Ot 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 10/13/2018 KIMBERLY PEREZ DOI Ot C95.91 LEUKEMIA, UNSPECIFIED, IN REMISSION 10/13/2018 KIMBERLY PEREZ DOI Ot D72.823 LEUKEMOID REACTION 10/13/2018 KIMBERLY PEREZ DOI Ot E03.9 HYPOTHYROIDISM, UNSPECIFIED 10/13/2018 ANA LOOMIS MALA Ot E78.00 PURE HYPERCHOLESTEROLEMIA, UNSPECIFIED 10/13/2018 KIMBERLY PEREZ DOI Ot F51.01 PRIMARY INSOMNIA 10/13/2018 MALA PEREZ DO Ot J18.1 LOBAR PNEUMONIA, UNSPECIFIED ORGANISM 10/13/2018 KIMBERLY PEREZ DOI Ot J20.9 ACUTE BRONCHITIS, UNSPECIFIED 10/13/2018 KIMBERLY PEREZ DOI Ot K21.9 GASTRO-ESOPHAGEAL REFLUX DISEASE WITHOUT 10/13/2018 KIMBERLY PEREZ DOI Ot K59.01 SLOW TRANSIT CONSTIPATION 10/13/2018 KIMBERLY PEREZ DOI Ot K75.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 (RICHARD) 10/13/2018 KIMBERLY PEREZ DOI Ot M19.91 PRIMARY OSTEOARTHRITIS, UNSPECIFIED SITE 10/13/2018 MALA PEREZ DO Ot R06.2 WHEEZING 10/13/2018 MALA PEREZ DO Ot R94.5 ABNORMAL RESULTS OF LIVER FUNCTION STUDI 10/13/2018 MALA PEREZ DO Ot T38.0X5A ADVERSE EFFECT OF GLUCOCORT/SYNTH ANALOG 10/13/2018 MALA PEREZ DO Ot Z92.21 PERSONAL HISTORY OF ANTINEOPLASTIC CHEMO 10/13/2018 MALA PEREZ DO Ot Z92.3 PERSONAL HISTORY OF IRRADIATION 10/13/2018 MALA PEREZ DO Ot 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 Procedures There is no data. Results Test Result Range Complete urinalysis with reflex to culture - 08/06/18 16:20 Urine color determination YELLOW NRG Urine clarity determination CLEAR NRG Urine pH measurement by test strip 6 5-9 Specific gravity of urine by test strip 1.015 1.016- 1.022 Urine protein assay by test strip, semi-quantitative 4+ NEGATIVE Urine glucose detection by automated test strip NEGATIVE NEGATIVE Erythrocytes detection in urine sediment by light microscopy NEGATIVE NEGATIVE Urine ketones detection by automated test strip NEGATIVE NEGATIVE Urine nitrite detection by test strip NEGATIVE NEGATIVE Urine total bilirubin detection by test strip NEGATIVE NEGATIVE Urine urobilinogen measurement by automated test strip (mass/volume) NORMAL NORMAL Urine leukocyte esterase detection by dipstick NEGATIVE NEGATIVE Automated urine sediment erythrocyte count by microscopy (number/high power field) NONE NRG Automated urine sediment leukocyte count by microscopy (number/high power field ) RARE NRG Bacteria detection in urine sediment by light microscopy TRACE NRG Squamous epithelial cells detection in urine sediment by light microscopy 0-2 NRG Crystals detection in urine sediment by light microscopy NONE NRG Casts detection in urine sediment by light microscopy NONE NRG Mucus detection in urine sediment by light microscopy NEGATIVE NRG Complete urinalysis with reflex to culture NO NRG Comprehensive metabolic panel - 08/06/18 17:04 Serum or plasma sodium measurement (moles/volume) 134 mmol/L 135-145 Serum or plasma potassium measurement (moles/volume) 3.6 mmol/L 3.6-5.0 Serum or plasma chloride measurement (moles/volume) 101 mmol/L 98-107 Carbon dioxide 21 mmol/L 21-32 Serum or plasma anion gap determination (moles/volume) 12 mmol/L 5-14 Serum or plasma urea nitrogen measurement (mass/volume) 10 mg/dL 7-18 Serum or plasma creatinine measurement (mass/volume) 1.11 mg/dL 0.60-1.30 Serum or plasma urea nitrogen/creatinine mass ratio 9 NRG Serum or plasma creatinine measurement with calculation of estimated glomerular filtration rate 51 NRG Serum or plasma glucose measurement (mass/volume) 121 mg/dL 70-105 Serum or plasma calcium measurement (mass/volume) 10.0 mg/dL 8.5-10.1 Serum or plasma total bilirubin measurement (mass/volume) 0.5 mg/dL 0.1-1.0 Serum or plasma alkaline phosphatase measurement (enzymatic activity/volume) 113 U/L 40-136 Serum or plasma aspartate aminotransferase measurement (enzymatic activity/ volume) 123 U/L 5-34 Serum or plasma alanine aminotransferase measurement (enzymatic activity/volume ) 133 U/L 0-55 Serum or plasma protein measurement (mass/volume) 8.7 g/dL 6.4-8.2 Serum or plasma albumin measurement (mass/volume) 4.4 g/dL 3.2-4.5 CALCIUM CORRECTED 9.7 mg/dL 8.5-10.1 Bacterial blood culture - 08/06/18 17:04 Bacterial blood culture NG [facility] Complete blood count (CBC) with automated white blood cell (WBC) differential - 08/06/18 17:12 Blood leukocytes automated count (number/volume) 14.7 10*3/uL 4.3-11.0 Blood erythrocytes automated count (number/volume) 4.57 10*6/uL 4.35-5.85 Venous blood hemoglobin measurement (mass/volume) 14.6 g/dL 11.5-16.0 Blood hematocrit (volume fraction) 43 % 35-52 Automated erythrocyte mean corpuscular volume 93 [foz_us] 80-99 Automated erythrocyte mean corpuscular hemoglobin (mass per erythrocyte) 32 pg 25-34 Automated erythrocyte mean corpuscular hemoglobin concentration measurement ( mass/volume) 34 g/dL 32-36 Automated erythrocyte distribution width ratio 14.3 % 10.0-14.5 Automated blood platelet count (count/volume) 369 10*3/uL 130-400 Automated blood platelet mean volume measurement 10.0 [foz_us] 7.4-10.4 Automated blood neutrophils/100 leukocytes 53 % 42-75 Automated blood lymphocytes/100 leukocytes 31 % 12-44 Blood monocytes/100 leukocytes 11 % 0-12 Automated blood eosinophils/100 leukocytes 4 % 0-10 Automated blood basophils/100 leukocytes 2 % 0-10 Blood neutrophils automated count (number/volume) 7.8 10*3 1.8-7.8 Blood lymphocytes automated count (number/volume) 4.6 10*3 1.0-4.0 Blood monocytes automated count (number/volume) 1.6 10*3 0.0-1.0 Automated eosinophil count 0.5 10*3/uL 0.0-0.3 Automated blood basophil count (count/volume) 0.3 10*3/uL 0.0-0.1 Bacterial blood culture - 08/06/18 17:12 Bacterial blood culture NG [facility] Influenza virus A and B antigen detection - 08/06/18 18:00 FLU RESULT NEGATIVE FOR INFLUENZA A AND B ANTIGENS BY IA NR Blood lactic acid measurement (moles/volume) - 08/06/18 18:00 Blood lactic acid measurement (moles/volume) 1.97 mmol/L 0.50-2.00 Sputum Gram stain - 08/06/18 18:00 Sputum Gram stain REPORTED 08-07-2018, 1705. NRG Bacterial sputum culture - 08/06/18 18:00 Bacterial sputum culture NORMAL NR Complete blood count (CBC) with automated white blood cell (WBC) differential - 08/07/18 05:35 Blood leukocytes automated count (number/volume) 11.5 10*3/uL 4.3-11.0 Blood erythrocytes automated count (number/volume) 4.04 10*6/uL 4.35-5.85 Venous blood hemoglobin measurement (mass/volume) 12.7 g/dL 11.5-16.0 Blood hematocrit (volume fraction) 38 % 35-52 Automated erythrocyte mean corpuscular volume 94 [foz_us] 80-99 Automated erythrocyte mean corpuscular hemoglobin (mass per erythrocyte) 31 pg 25-34 Automated erythrocyte mean corpuscular hemoglobin concentration measurement ( mass/volume) 33 g/dL 32-36 Automated erythrocyte distribution width ratio 14.5 % 10.0-14.5 Automated blood platelet count (count/volume) 336 10*3/uL 130-400 Automated blood platelet mean volume measurement 10.5 [foz_us] 7.4-10.4 Automated blood neutrophils/100 leukocytes 81 % 42-75 Automated blood lymphocytes/100 leukocytes 17 % 12-44 Blood monocytes/100 leukocytes 2 % 0-12 Automated blood eosinophils/100 leukocytes 0 % 0-10 Automated blood basophils/100 leukocytes 0 % 0-10 Blood neutrophils automated count (number/volume) 9.3 10*3 1.8-7.8 Blood lymphocytes automated count (number/volume) 2.0 10*3 1.0-4.0 Blood monocytes automated count (number/volume) 0.2 10*3 0.0-1.0 Automated eosinophil count 0.0 10*3/uL 0.0-0.3 Automated blood basophil count (count/volume) 0.0 10*3/uL 0.0-0.1 Comprehensive metabolic panel - 08/07/18 05:35 Serum or plasma sodium measurement (moles/volume) 136 mmol/L 135-145 Serum or plasma potassium measurement (moles/volume) 4.1 mmol/L 3.6-5.0 Serum or plasma chloride measurement (moles/volume) 104 mmol/L 98-107 Carbon dioxide 15 mmol/L 21-32 Serum or plasma anion gap determination (moles/volume) 17 mmol/L 5-14 Serum or plasma urea nitrogen measurement (mass/volume) 15 mg/dL 7-18 Serum or plasma creatinine measurement (mass/volume) 1.21 mg/dL 0.60-1.30 Serum or plasma urea nitrogen/creatinine mass ratio 12 NRG Serum or plasma creatinine measurement with calculation of estimated glomerular filtration rate 46 NRG Serum or plasma glucose measurement (mass/volume) 358 mg/dL 70-105 Serum or plasma calcium measurement (mass/volume) 9.6 mg/dL 8.5-10.1 Serum or plasma total bilirubin measurement (mass/volume) 0.2 mg/dL 0.1-1.0 Serum or plasma alkaline phosphatase measurement (enzymatic activity/volume) 100 U/L 40-136 Serum or plasma aspartate aminotransferase measurement (enzymatic activity/ volume) 71 U/L 5-34 Serum or plasma alanine aminotransferase measurement (enzymatic activity/volume ) 108 U/L 0-55 Serum or plasma protein measurement (mass/volume) 7.2 g/dL 6.4-8.2 Serum or plasma albumin measurement (mass/volume) 3.9 g/dL 3.2-4.5 CALCIUM CORRECTED 9.7 mg/dL 8.5-10.1 Sputum Gram stain - 10/06/18 16:13 Sputum Gram stain Mixed Bacterial Dawna NR Bacterial sputum culture - 10/06/18 16:13 QUANTITY OF GROWTH . NR Bacterial sputum culture USUAL RESP NRG Influenza virus A and B antigen detection - 10/06/18 16:40 FLU RESULT NEGATIVE FOR INFLUENZA A AND B ANTIGENS BY IA NR Bacterial blood culture - 10/06/18 17:30 Bacterial blood culture NG [facility] Complete blood count (CBC) with automated white blood cell (WBC) differential - 10/06/18 17:42 Blood leukocytes automated count (number/volume) 13.2 10*3/uL 4.3-11.0 Blood erythrocytes automated count (number/volume) 4.33 10*6/uL 4.35-5.85 Venous blood hemoglobin measurement (mass/volume) 13.5 g/dL 11.5-16.0 Blood hematocrit (volume fraction) 40 % 35-52 Automated erythrocyte mean corpuscular volume 92 [foz_us] 80-99 Automated erythrocyte mean corpuscular hemoglobin (mass per erythrocyte) 31 pg 25-34 Automated erythrocyte mean corpuscular hemoglobin concentration measurement ( mass/volume) 34 g/dL 32-36 Automated erythrocyte distribution width ratio 13.7 % 10.0-14.5 Automated blood platelet count (count/volume) 315 10*3/uL 130-400 Automated blood platelet mean volume measurement 10.3 [foz_us] 7.4-10.4 Automated blood neutrophils/100 leukocytes 42 % 42-75 Automated blood lymphocytes/100 leukocytes 37 % 12-44 Blood monocytes/100 leukocytes 11 % 0-12 Automated blood eosinophils/100 leukocytes 8 % 0-10 Automated blood basophils/100 leukocytes 2 % 0-10 Blood neutrophils automated count (number/volume) 5.6 10*3 1.8-7.8 Blood lymphocytes automated count (number/volume) 4.9 10*3 1.0-4.0 Blood monocytes automated count (number/volume) 1.4 10*3 0.0-1.0 Automated eosinophil count 1.1 10*3/uL 0.0-0.3 Automated blood basophil count (count/volume) 0.3 10*3/uL 0.0-0.1 Blood lactic acid measurement (moles/volume) - 10/06/18 17:42 Blood lactic acid measurement (moles/volume) 1.32 mmol/L 0.50-2.00 Comprehensive metabolic panel - 10/06/18 17:42 Serum or plasma sodium measurement (moles/volume) 139 mmol/L 135-145 Serum or plasma potassium measurement (moles/volume) 3.8 mmol/L 3.6-5.0 Serum or plasma chloride measurement (moles/volume) 100 mmol/L 98-107 Carbon dioxide 23 mmol/L 21-32 Serum or plasma anion gap determination (moles/volume) 16 mmol/L 5-14 Serum or plasma urea nitrogen measurement (mass/volume) 9 mg/dL 7-18 Serum or plasma creatinine measurement (mass/volume) 0.90 mg/dL 0.60-1.30 Serum or plasma urea nitrogen/creatinine mass ratio 10 NRG Serum or plasma creatinine measurement with calculation of estimated glomerular filtration rate > NRG Serum or plasma glucose measurement (mass/volume) 93 mg/dL 70-105 Serum or plasma calcium measurement (mass/volume) 10.1 mg/dL 8.5-10.1 Serum or plasma total bilirubin measurement (mass/volume) 0.7 mg/dL 0.1-1.0 Serum or plasma alkaline phosphatase measurement (enzymatic activity/volume) 110 U/L 40-136 Serum or plasma aspartate aminotransferase measurement (enzymatic activity/ volume) 75 U/L 5-34 Serum or plasma alanine aminotransferase measurement (enzymatic activity/volume ) 89 U/L 0-55 Serum or plasma protein measurement (mass/volume) 7.9 g/dL 6.4-8.2 Serum or plasma albumin measurement (mass/volume) 4.4 g/dL 3.2-4.5 CALCIUM CORRECTED 9.8 mg/dL 8.5-10.1 Serum or plasma troponin i.cardiac measurement (mass/volume) - 10/06/18 17:42 Serum or plasma troponin i.cardiac measurement (mass/volume) < ng/ mL <0.30 Serum or plasma lithium measurement (moles/volume) - 10/06/18 17:42 BNP level < pg/mL <100.0 Bacterial blood culture - 10/06/18 17:42 Bacterial blood culture NG NRG Complete urinalysis with reflex to culture - 10/06/18 17:45 Urine color determination YELLOW NRG Urine clarity determination CLEAR NRG Urine pH measurement by test strip 6.5 5-9 Specific gravity of urine by test strip 1.010 1.016- 1.022 Urine protein assay by test strip, semi-quantitative 1+ NEGATIVE Urine glucose detection by automated test strip NEGATIVE NEGATIVE Erythrocytes detection in urine sediment by light microscopy NEGATIVE NEGATIVE Urine ketones detection by automated test strip NEGATIVE NEGATIVE Urine nitrite detection by test strip NEGATIVE NEGATIVE Urine total bilirubin detection by test strip NEGATIVE NEGATIVE Urine urobilinogen measurement by automated test strip (mass/volume) NORMAL NORMAL Urine leukocyte esterase detection by dipstick NEGATIVE NEGATIVE Automated urine sediment erythrocyte count by microscopy (number/high power field) NONE NRG Automated urine sediment leukocyte count by microscopy (number/high power field ) NONE NRG Bacteria detection in urine sediment by light microscopy NEGATIVE NRG Squamous epithelial cells detection in urine sediment by light microscopy RARE NRG Crystals detection in urine sediment by light microscopy NONE NRG Casts detection in urine sediment by light microscopy NONE NRG Mucus detection in urine sediment by light microscopy NEGATIVE NRG Complete urinalysis with reflex to culture NO NRG Complete blood count (CBC) with automated white blood cell (WBC) differential - 10/07/18 05:30 Blood leukocytes automated count (number/volume) 10.6 10*3/uL 4.3-11.0 Blood erythrocytes automated count (number/volume) 4.22 10*6/uL 4.35-5.85 Venous blood hemoglobin measurement (mass/volume) 13.1 g/dL 11.5-16.0 Blood hematocrit (volume fraction) 39 % 35-52 Automated erythrocyte mean corpuscular volume 92 [foz_us] 80-99 Automated erythrocyte mean corpuscular hemoglobin (mass per erythrocyte) 31 pg 25-34 Automated erythrocyte mean corpuscular hemoglobin concentration measurement ( mass/volume) 34 g/dL 32-36 Automated erythrocyte distribution width ratio 14.0 % 10.0-14.5 Automated blood platelet count (count/volume) 356 10*3/uL 130-400 Automated blood platelet mean volume measurement 9.9 [foz_us] 7.4-10.4 Automated blood neutrophils/100 leukocytes 78 % 42-75 Automated blood lymphocytes/100 leukocytes 20 % 12-44 Blood monocytes/100 leukocytes 1 % 0-12 Automated blood eosinophils/100 leukocytes 0 % 0-10 Automated blood basophils/100 leukocytes 1 % 0-10 Blood neutrophils automated count (number/volume) 8.3 10*3 1.8-7.8 Blood lymphocytes automated count (number/volume) 2.1 10*3 1.0-4.0 Blood monocytes automated count (number/volume) 0.1 10*3 0.0-1.0 Automated eosinophil count 0.0 10*3/uL 0.0-0.3 Automated blood basophil count (count/volume) 0.1 10*3/uL 0.0-0.1 Comprehensive metabolic panel - 10/07/18 05:30 Serum or plasma sodium measurement (moles/volume) 137 mmol/L 135-145 Serum or plasma potassium measurement (moles/volume) 3.6 mmol/L 3.6-5.0 Serum or plasma chloride measurement (moles/volume) 103 mmol/L 98-107 Carbon dioxide 19 mmol/L 21-32 Serum or plasma anion gap determination (moles/volume) 15 mmol/L 5-14 Serum or plasma urea nitrogen measurement (mass/volume) 10 mg/dL 7-18 Serum or plasma creatinine measurement (mass/volume) 0.97 mg/dL 0.60-1.30 Serum or plasma urea nitrogen/creatinine mass ratio 10 NRG Serum or plasma creatinine measurement with calculation of estimated glomerular filtration rate 60 NRG Serum or plasma glucose measurement (mass/volume) 268 mg/dL 70-105 Serum or plasma calcium measurement (mass/volume) 9.6 mg/dL 8.5-10.1 Serum or plasma total bilirubin measurement (mass/volume) 0.4 mg/dL 0.1-1.0 Serum or plasma alkaline phosphatase measurement (enzymatic activity/volume) 101 U/L 40-136 Serum or plasma aspartate aminotransferase measurement (enzymatic activity/ volume) 53 U/L 5-34 Serum or plasma alanine aminotransferase measurement (enzymatic activity/volume ) 80 U/L 0-55 Serum or plasma protein measurement (mass/volume) 7.3 g/dL 6.4-8.2 Serum or plasma albumin measurement (mass/volume) 4.1 g/dL 3.2-4.5 CALCIUM CORRECTED 9.5 mg/dL 8.5-10.1 Complete blood count (CBC) with automated white blood cell (WBC) differential - 10/08/18 06:59 Blood leukocytes automated count (number/volume) 30.1 10*3/uL 4.3-11.0 Blood erythrocytes automated count (number/volume) 3.98 10*6/uL 4.35-5.85 Venous blood hemoglobin measurement (mass/volume) 12.5 g/dL 11.5-16.0 Blood hematocrit (volume fraction) 37 % 35-52 Automated erythrocyte mean corpuscular volume 93 [foz_us] 80-99 Automated erythrocyte mean corpuscular hemoglobin (mass per erythrocyte) 31 pg 25-34 Automated erythrocyte mean corpuscular hemoglobin concentration measurement ( mass/volume) 34 g/dL 32-36 Automated erythrocyte distribution width ratio 14.7 % 10.0-14.5 Automated blood platelet count (count/volume) 353 10*3/uL 130-400 Automated blood platelet mean volume measurement 10.1 [foz_us] 7.4-10.4 Automated blood neutrophils/100 leukocytes 84 % 42-75 Automated blood lymphocytes/100 leukocytes 11 % 12-44 Blood monocytes/100 leukocytes 5 % 0-12 Automated blood eosinophils/100 leukocytes 0 % 0-10 Automated blood basophils/100 leukocytes 0 % 0-10 Blood neutrophils automated count (number/volume) 25.4 10*3 1.8-7.8 Blood lymphocytes automated count (number/volume) 3.3 10*3 1.0-4.0 Blood monocytes automated count (number/volume) 1.4 10*3 0.0-1.0 Automated eosinophil count 0.0 10*3/uL 0.0-0.3 Automated blood basophil count (count/volume) 0.0 10*3/uL 0.0-0.1 Comprehensive metabolic panel - 10/08/18 06:59 Serum or plasma sodium measurement (moles/volume) 139 mmol/L 135-145 Serum or plasma potassium measurement (moles/volume) 3.7 mmol/L 3.6-5.0 Serum or plasma chloride measurement (moles/volume) 103 mmol/L 98-107 Carbon dioxide 19 mmol/L 21-32 Serum or plasma anion gap determination (moles/volume) 17 mmol/L 5-14 Serum or plasma urea nitrogen measurement (mass/volume) 18 mg/dL 7-18 Serum or plasma creatinine measurement (mass/volume) 1.01 mg/dL 0.60-1.30 Serum or plasma urea nitrogen/creatinine mass ratio 18 NRG Serum or plasma creatinine measurement with calculation of estimated glomerular filtration rate 57 NRG Serum or plasma glucose measurement (mass/volume) 266 mg/dL 70-105 Serum or plasma calcium measurement (mass/volume) 10.1 mg/dL 8.5-10.1 Serum or plasma total bilirubin measurement (mass/volume) 0.4 mg/dL 0.1-1.0 Serum or plasma alkaline phosphatase measurement (enzymatic activity/volume) 100 U/L 40-136 Serum or plasma aspartate aminotransferase measurement (enzymatic activity/ volume) 26 U/L 5-34 Serum or plasma alanine aminotransferase measurement (enzymatic activity/volume ) 62 U/L 0-55 Serum or plasma protein measurement (mass/volume) 7.6 g/dL 6.4-8.2 Serum or plasma albumin measurement (mass/volume) 4.1 g/dL 3.2-4.5 CALCIUM CORRECTED 10.0 mg/dL 8.5-10.1 Complete blood count (CBC) with automated white blood cell (WBC) differential - 10/09/18 03:55 Blood leukocytes automated count (number/volume) 27.4 10*3/uL 4.3-11.0 Blood erythrocytes automated count (number/volume) 3.89 10*6/uL 4.35-5.85 Venous blood hemoglobin measurement (mass/volume) 12.2 g/dL 11.5-16.0 Blood hematocrit (volume fraction) 37 % 35-52 Automated erythrocyte mean corpuscular volume 94 [foz_us] 80-99 Automated erythrocyte mean corpuscular hemoglobin (mass per erythrocyte) 31 pg 25-34 Automated erythrocyte mean corpuscular hemoglobin concentration measurement ( mass/volume) 33 g/dL 32-36 Automated erythrocyte distribution width ratio 14.7 % 10.0-14.5 Automated blood platelet count (count/volume) 352 10*3/uL 130-400 Automated blood platelet mean volume measurement 10.3 [foz_us] 7.4-10.4 Automated blood neutrophils/100 leukocytes 80 % 42-75 Automated blood lymphocytes/100 leukocytes 15 % 12-44 Blood monocytes/100 leukocytes 5 % 0-12 Automated blood eosinophils/100 leukocytes 0 % 0-10 Automated blood basophils/100 leukocytes 0 % 0-10 Blood neutrophils automated count (number/volume) 21.7 10*3 1.8-7.8 Blood lymphocytes automated count (number/volume) 4.1 10*3 1.0-4.0 Blood monocytes automated count (number/volume) 1.5 10*3 0.0-1.0 Automated eosinophil count 0.0 10*3/uL 0.0-0.3 Automated blood basophil count (count/volume) 0.0 10*3/uL 0.0-0.1 Comprehensive metabolic panel - 10/09/18 03:55 Serum or plasma sodium measurement (moles/volume) 138 mmol/L 135-145 Serum or plasma potassium measurement (moles/volume) 4.2 mmol/L 3.6-5.0 Serum or plasma chloride measurement (moles/volume) 101 mmol/L 98-107 Carbon dioxide 23 mmol/L 21-32 Serum or plasma anion gap determination (moles/volume) 14 mmol/L 5-14 Serum or plasma urea nitrogen measurement (mass/volume) 18 mg/dL 7-18 Serum or plasma creatinine measurement (mass/volume) 1.00 mg/dL 0.60-1.30 Serum or plasma urea nitrogen/creatinine mass ratio 18 NRG Serum or plasma creatinine measurement with calculation of estimated glomerular filtration rate 58 NRG Serum or plasma glucose measurement (mass/volume) 319 mg/dL 70-105 Serum or plasma calcium measurement (mass/volume) 10.1 mg/dL 8.5-10.1 Serum or plasma total bilirubin measurement (mass/volume) 0.4 mg/dL 0.1-1.0 Serum or plasma alkaline phosphatase measurement (enzymatic activity/volume) 105 U/L 40-136 Serum or plasma aspartate aminotransferase measurement (enzymatic activity/ volume) 20 U/L 5-34 Serum or plasma alanine aminotransferase measurement (enzymatic activity/volume ) 51 U/L 0-55 Serum or plasma protein measurement (mass/volume) 7.6 g/dL 6.4-8.2 Serum or plasma albumin measurement (mass/volume) 4.1 g/dL 3.2-4.5 CALCIUM CORRECTED 10.0 mg/dL 8.5-10.1 Blood manual differential performed detection - 10/09/18 03:55 Blood monocytes/100 leukocytes 3 % NRG Manual blood segmented neutrophils/100 leukocytes 71 % NRG Blood band neutrophils/100 leukocytes 2 % NRG Manual blood lymphocytes/100 leukocytes 22 % NRG Manual eosinophils/100 leukocytes in nose 0 % NRG Manual blood basophils/100 leukocytes 0 % NRG Blood smudge cells detection by light microscopy MOD NRG Blood polychromasia detection by light microscopy SLIGHT NRG Blood anisocytosis detection by light microscopy SLIGHT NRG Blood toxic granules detection by light microscopy 1+ NRG Manual blood metamyelocytes/100 leukocytes 1 % NRG Blood target cells detection by light microscopy SLIGHT NRG Blood Thakkar-Pelzer bodies detection by light microscopy SLIGHT NRG Manual blood myelocytes/100 leukocytes 1 % NRG Complete blood count (CBC) with automated white blood cell (WBC) differential - 10/10/18 05:10 Blood leukocytes automated count (number/volume) 26.6 10*3/uL 4.3-11.0 Blood erythrocytes automated count (number/volume) 3.98 10*6/uL 4.35-5.85 Venous blood hemoglobin measurement (mass/volume) 13.3 g/dL 11.5-16.0 Blood hematocrit (volume fraction) 37 % 35-52 Automated erythrocyte mean corpuscular volume 94 [foz_us] 80-99 Automated erythrocyte mean corpuscular hemoglobin (mass per erythrocyte) 33 pg 25-34 Automated erythrocyte mean corpuscular hemoglobin concentration measurement ( mass/volume) 36 g/dL 32-36 Automated erythrocyte distribution width ratio 14.5 % 10.0-14.5 Automated blood platelet count (count/volume) 369 10*3/uL 130-400 Automated blood platelet mean volume measurement 9.9 [foz_us] 7.4-10.4 Automated blood neutrophils/100 leukocytes 56 % 42-75 Automated blood lymphocytes/100 leukocytes 35 % 12-44 Blood monocytes/100 leukocytes 9 % 0-12 Automated blood eosinophils/100 leukocytes 0 % 0-10 Automated blood basophils/100 leukocytes 0 % 0-10 Blood neutrophils automated count (number/volume) 14.8 10*3 1.8-7.8 Blood lymphocytes automated count (number/volume) 9.3 10*3 1.0-4.0 Blood monocytes automated count (number/volume) 2.4 10*3 0.0-1.0 Automated eosinophil count 0.0 10*3/uL 0.0-0.3 Automated blood basophil count (count/volume) 0.1 10*3/uL 0.0-0.1 Comprehensive metabolic panel - 10/10/18 05:10 Serum or plasma sodium measurement (moles/volume) 134 mmol/L 135-145 Serum or plasma potassium measurement (moles/volume) 3.7 mmol/L 3.6-5.0 Serum or plasma chloride measurement (moles/volume) 97 mmol/L 98-107 Carbon dioxide 18 mmol/L 21-32 Serum or plasma anion gap determination (moles/volume) 19 mmol/L 5-14 Serum or plasma urea nitrogen measurement (mass/volume) 18 mg/dL 7-18 Serum or plasma creatinine measurement (mass/volume) 0.86 mg/dL 0.60-1.30 Serum or plasma urea nitrogen/creatinine mass ratio 21 NRG Serum or plasma creatinine measurement with calculation of estimated glomerular filtration rate > NRG Serum or plasma glucose measurement (mass/volume) 131 mg/dL 70-105 Serum or plasma calcium measurement (mass/volume) 10.1 mg/dL 8.5-10.1 Serum or plasma total bilirubin measurement (mass/volume) 0.4 mg/dL 0.1-1.0 Serum or plasma alkaline phosphatase measurement (enzymatic activity/volume) 91 U/L 40-136 Serum or plasma aspartate aminotransferase measurement (enzymatic activity/ volume) 26 U/L 5-34 Serum or plasma alanine aminotransferase measurement (enzymatic activity/volume ) 50 U/L 0-55 Serum or plasma protein measurement (mass/volume) 9.2 g/dL 6.4-8.2 Serum or plasma albumin measurement (mass/volume) 4.1 g/dL 3.2-4.5 CALCIUM CORRECTED 10.0 mg/dL 8.5-10.1 Encounters ACCT No. Visit Date/Time Discharge Status Pt. Type Provider Facility Loc./Unit Complaint [id number] 10/08/2018 09:06:00 10/10/2018 12:30:00 DIS Inpatient PEREZ DO, MALA [facility] 4TH WHEEZING [id number] 08/17/2018 16:07:00 08/17/2018 23:59:59 CLS Preadmit PEREZ DO, MALA [facility] RT R06.2 WHEEZING [id number] 08/06/2018 16:04:00 08/07/2018 13:40:00 DIS Inpatient PEREZ DO, MALA [facility] 4TH FEVER [id number] 07/30/2017 11:37:00 07/30/2017 23:59:59 CLS Outpatient PEREZ DO, MALA [facility] RAD E04.1 THYROID NODULE [id number] 01/08/2017 15:55:00 01/08/2017 16:26:00 DIS Emergency PERLA ROSARIO, CECIL Shoemaker [facility] ER HEAD PAIN [id number] 02/19/2016 09:31:00 02/19/2016 23:59:59 CLS Outpatient BECKY STOREY, NIVIA Feliz [facility] RAD RUQ PAIN, INCREASED LFT [id number] 10/08/2015 21:36:00 10/11/2015 13:26:00 DIS Inpatient MALA PEREZ DO [facility] 4TH FEVER OF UNKNOWN ORIGIN, BRONCHITIS
== END 2018-10-10 12:30 | disposition home or self-care (01) | DRG 194 ==
LOC: 4TH 15:53 → UNDOADMOB 16:10 → OBSVTOIN 10-08 09:00 → INTOOBSV 10-08 09:00 → OBSVTOIN 10-08 09:06 → UNDODISIN 10-10 12:30
PROVIDERS: ADMIT Internal Medicine; ATTEND Internal Medicine
DX: J18.1 Lobar pneumonia, unspecified organism (principal); J20.9 Acute bronchitis, unspecified; C95.91 Leukemia, unspecified, in remission; Z94.81 Bone marrow transplant status; K75.81 Nonalcoholic steatohepatitis (NASH); E78.00 Pure hypercholesterolemia, unspecified; E03.9 Hypothyroidism, unspecified; F51.01 Primary insomnia; K59.01 Slow transit constipation; D72.823 Leukemoid reaction; T38.0X5A Adverse effect of glucocorticoids and synthetic analogues, initial encounter; R74.8 Abnormal levels of other serum enzymes; K21.9 Gastro-esophageal reflux disease without esophagitis; M19.91 Primary osteoarthritis, unspecified site; Z92.21 Personal history of antineoplastic chemotherapy; Z92.3 Personal history of irradiation
CPT/HCPCS: 36415; 71046; 71275; 80053; 81000; 83605; 83880; 84484; 85007; 85025; 85027; 87040; 87070; 87205; 87804; 93005; 94640; 94760; G0378

== ENCOUNTER → 2018-10-19 | Outpatient (CLI) | payer OTHER, MEDICARE ==
[~2018-10-19] MED LIST changes: +ALBU1.25 NEB; +FLUT1DIS28 INH; +MONT10TA24 PO; +Zolpidem Tartrate PO
== END ==
LOC: RT 11:46
PROVIDERS: ATTEND Internal Medicine
DX: R06.2 Wheezing (principal)

== ENCOUNTER → 2018-11-16 | Outpatient (CLI) | payer OTHER, MEDICARE ==
--- NOTE | 2018-11-16 09:02 | Diagnostic Imaging Report ---
PROCEDURE: CT sinuses without contrast TECHNIQUE: Multiple contiguous axial images were obtained through the sinuses without the use of intravenous contrast. Coronal and sagittal reformations were then performed. INDICATION: Chronic sinusitis. COMPARISON: None. FINDINGS: The paranasal sinuses are clear. The ostiomeatal units and frontal recesses are patent. Marked S-shaped bowing of the nasal septum. No large teena bullosa. No large periapical lucencies about the maxillary dentition. The mastoids and middle ears clear. Skull base is intact. Normal alignment of the temporomandibular joints. IMPRESSION: No CT evidence of acute or chronic sinusitis. Dictated by: Dictated on workstation # [id number]
--- NOTE | 2018-11-16 11:06 | Diagnostic Imaging Report ---
INDICATION: Reactive airway disease. EXAMINATION: PA and lateral chest. FINDINGS: The heart size and pulmonary vascularity are normal. The lungs are clear. There are no effusions or pneumothoraces. IMPRESSION: Negative chest. Dictated by: Dictated on workstation # [id number]
--- NOTE | 2018-11-16 15:26 | Diagnostic Imaging Report ---
INDICATION: Finger and thumb pain. TECHNIQUE: Three views of the left hand and single view of left thumb, at 09:10 a.m. CORRELATION STUDY: None. FINDINGS: There is normal alignment and appearance of the osseous structures of the hand. The joint spaces are maintained. There is no acute fracture. Left thumb demonstrates no acute findings. Joint spaces overall are fairly well maintained. Soft tissues appear unremarkable. IMPRESSION: 1. Negative for acute bony abnormality of the hand and/or thumb. Dictated by: Dictated on workstation # [id number]
== END ==
LOC: RAD 08:30
PROVIDERS: ATTEND Internal Medicine
DX: J32.9 Chronic sinusitis, unspecified (principal); J45.909 Unspecified asthma, uncomplicated; M79.645 Pain in left finger(s)
CPT/HCPCS: 70486; 71046; 73130

== ENCOUNTER 2019-03-08 12:17 | Emergency (ER) | payer OTHER, MEDICARE ==
[~2019-03-08] VITALS: Ht 162.6 cm; Wt 72.6 kg
[2019-03-08] MEDS ORDERED: LACTATED RINGERS 1,000 ML IV ONE (13:05)
[2019-03-08 13:10] VITALS: BP_SYST 121; BP_SYST 133; BP_SYST 137; BP_DIAS 103; BP_DIAS 87; BP_DIAS 97
--- NOTE | 2019-03-08 13:15 | ED Cough/URI ---
General Stated Complaint: COUGH;VOMITING;DIZZINESS Source: patient, family Exam Limitations: no limitations History of Present Illness Date Seen by Provider: Mar 08, 2019 Time Seen by Provider: 12:53 Initial Comments The patient has ER by private conveyance with her significant other and chief for about one week now she's had cough and cold symptoms with some subjective fevers but no objective fevers. She uses ibuprofen mucus occasionally she gets a headache. Her last dose was sometime last night. Her cough is productive. She has no history of lung disease, COPD or asthma. No wheezing or shortness of breath. However today she started feeling a little lightheaded and dizzy all her primary care doctor and they sent her out here to be evaluated. 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 She is no longer on immunotherapy. Her oncologist is at [facility]. She has not passed out. She says historically she would get these all the time 5 or 6 times a year and distal get a Z-Siva but her doctor is told her that she thinks these are more allergies and viral colds. She has not been on antibiotics for the past several months. She does not use steroids. Allergies and Home Medications Allergies Coded Allergies: No Known Drug Allergies (Unverified , 10/08/15) Home Medications Albuterol Sulfate 1.25 Mg/3 Ml Vial.neb, 1.25 MG NEB TID PRN for WHEEZING, ( Reported) Atorvastatin Calcium 10 Mg Tablet, 10 MG PO DAILY, (Reported) Cefdinir 300 Mg Capsule, 300 MG PO BID Prescribed by: MALA PEREZ on 10/10/181102 Fluticasone/Salmeterol 1 Each Blst.w.dev, 1 PUFF INH BID PRN for WHEEZING, ( Reported) Hydrocodone/Chlorphen P-Stirex 473 Ml Yvrose.er.12h, 5 ML PO Q12HR Prescribed by: MALA PEREZ on 10/10/18 110 Lansoprazole 30 Mg Capsule.dr, 30 MG PO DAILY, (Reported) Levothyroxine Sodium 175 Mcg Tablet, 175 MCG PO DAILY, (Reported) Montelukast Sodium 10 Mg Tablet, 10 MG PO HS Prescribed by: MALA PEREZ on 10/10/181102 [place]-3 Acid Ethyl Esters 1 Gm Capsule, 2 GM PO BID, (Reported) Prednisone 10 Mg Tab.ds.pk, 20 MG PO DAILY Take 6 tabs(60mg)daily,decrease by 1 tab(10MG)daily. Prescribed by: MALA PEREZ on 10/10/18 110 Vits #93/Iron Fum/FA 1 Each Tablet, 1 TAB PO DAILY, (Reported) Valacyclovir HCl 1,000 Mg Tablet, 1,000 MG PO DAILY PRN for FLARE UP, (Reported) [Zolpidem Tartrate] 5 MG TAB, 5 MG PO HS Prescribed by: MALA PEREZ on 10/10/18 110 Patient Home Medication List Home Medication List Reviewed: Yes Review of Systems Review of Systems Constitutional: chills, dizziness, fever (subjective), malaise EENTM: No ear discharge, No ear pain Respiratory: No cough, No short of breath Cardiovascular: No chest pain, No palpitations Gastrointestinal: No abdominal pain, No constipation, No diarrhea Genitourinary: No discharge, No dysuria Musculoskeletal: No back pain, No joint pain Skin: No pruritus, No rash Past Kwukmia-Rznyms-Kzjoqh Hx Patient Social History Alcohol Use: Occasionally Uses Alcohol Beverage of Choice: Wine Recreational Drug Use: No Smoking Status: Never a Smoker Recent Foreign Travel: No Contact w/Someone Who Travel: No Recent Hopitalizations: Yes (August) Immunizations Up To Date Tetanus Booster (TDap): Unknown Date of Influenza Vaccine: Sep 02, 2018 Seasonal Allergies Seasonal Allergies: No Past Medical History Surgeries: Yes (bone marrow transplant, splenectomy) Abdominal, Gallbladder, Hysterectomy Respiratory: Yes (BRONCHITIS) Pneumonia Currently Using CPAP: No Currently Using BIPAP: No Cardiac: Yes High Cholesterol Neurological: No Reproductive Disorders: No Sexually Transmitted Disease: No Genitourinary: No Gastrointestinal: Yes Gastroesophageal Reflux Musculoskeletal: No Arthritis Endocrine: Yes Hypothyroidsim HEENT: No Cancer: Yes Leukemia What Type of Treatment Did You: Chemotherapy, Radiation Psychosocial: No Integumentary: No Blood Disorders: No Adverse Reaction/Blood Tranf: Yes (high fever) Family Medical History Hypertension Physical Exam Vital Signs - First Documented Capillary Refill : Height: 5'4.00" Weight: 165lbs. 0.0oz. 74.102002bx; 28.3 BMI Method:Stated General Appearance: WD/WN, no apparent distress Eyes: Bilateral Eye Normal Inspection, Bilateral Eye PERRL, Bilateral Eye EOMI HEENT: PERRL/EOMI, normal ENT inspection, TMs normal, pharyngeal erythema ( think) Neck: non-tender, full range of motion, supple, normal inspection Respiratory: chest non-tender, lungs clear, normal breath sounds, no respiratory distress, no accessory muscle use Cardiovascular: normal peripheral pulses, regular rate, rhythm Neurologic/Psychiatric: alert, normal mood/affect, oriented x 3 Skin: normal color, warm/dry Progress/Results/Core Measures Suspected Sepsis SIRS Temperature: Pulse: Respiratory Rate: Laboratory Tests 03/08/19 13:10: White Blood Count 10.0 Blood Pressure / Mean: Laboratory Tests 03/08/19 13:10: Creatinine 0.99, Platelet Count 418H, Total Bilirubin 0.5 Results/Orders Lab Results Laboratory Tests Test 03/08/19 13:10 Range/Units White Blood Count 10.0 4.3-11.0 10^3/uL Red Blood Count 4.64 4.35-5.85 10^6/uL Hemoglobin 14.4 11.5-16.0 G/DL Hematocrit 42 35-52 % Mean Corpuscular Volume 90 80-99 FL Mean Corpuscular Hemoglobin 31 25-34 PG Mean Corpuscular Hemoglobin Concent 34 32-36 G/DL Red Cell Distribution Width 13.7 10.0-14.5 % Platelet Count 418 H 130-400 10^3/uL Mean Platelet Volume 9.6 7.4-10.4 FL Neutrophils (%) (Auto) 31 L 42-75 % Lymphocytes (%) (Auto) 51 H 12-44 % Monocytes (%) (Auto) 12 0-12 % Eosinophils (%) (Auto) 4 0-10 % Basophils (%) (Auto) 2 0-10 % Neutrophils # (Auto) 3.1 1.8-7.8 X 10^3 Lymphocytes # (Auto) 5.1 H 1.0-4.0 X 10^3 Monocytes # (Auto) 1.2 H 0.0-1.0 X 10^3 Eosinophils # (Auto) 0.4 H 0.0-0.3 10^3/uL Basophils # (Auto) 0.2 H 0.0-0.1 10^3/uL Sodium Level 135 135-145 MMOL/L Potassium Level 3.8 3.6-5.0 MMOL/L Chloride Level 101 98-107 MMOL/L Carbon Dioxide Level 24 21-32 MMOL/L Anion Gap 10 5-14 MMOL/L Blood Urea Nitrogen 12 7-18 MG/DL Creatinine 0.99 0.60-1.30 MG/DL Estimat Glomerular Filtration Rate 58 BUN/Creatinine Ratio 12 Glucose Level 100 70-105 MG/DL Calcium Level 10.3 H 8.5-10.1 MG/DL Corrected Calcium 10.0 8.5-10.1 MG/DL Total Bilirubin 0.5 0.1-1.0 MG/DL Aspartate Amino Transf (AST/SGOT) 76 H 5-34 U/L Alanine Aminotransferase (ALT/SGPT) 87 H 0-55 U/L Alkaline Phosphatase 125 40-136 U/L C-Reactive Protein High Sensitivity 0.35 0.00-0.50 MG/DL Total Protein 7.9 6.4-8.2 GM/DL Albumin 4.4 3.2-4.5 GM/DL Micro Results Microbiology 03/08/19 Influenza Types A,B Antigen (BERNARDINO) - Final, Complete My Orders Orders - ACE POPE Orthostatic Vital Signs (Adult (03/08/19 13:05) Cbc With Automated Diff (03/08/19 13:05) Comprehensive Metabolic Panel (03/08/19 13:05) Hs C Reactive Protein (03/08/19 13:05) Influenza A And B Antigens (03/08/19 13:05) Chest Pa/Lat (2 View) (03/08/19 13:05) Saline Lock/Iv-Start (03/08/19 13:05) Lactated Ringers (Lr 1000 Ml Iv Solution (03/08/19 13:05) Medications Given in ED Current Medications Medications Dose Ordered Sig/Dahlia Route Start Time Stop Time Status Last Admin Dose Admin Lactated Ringer's 1,000 ml @ 0 mls/hr Q0M ONCE IV 03/08/19 13:05 03/08/19 13:12 DC 03/08/19 13:20 0 MLS/HR Vital Signs/I&O 03/08/19 03/08/19 03/08/19 12:57 12:57 13:10 Temp 97.9 Pulse 77 69 76 82 Resp 16 B/P (MAP) 147/100 (116) 137/97 (110) 133/103 (113) 121/87 (98) Pulse Ox 97 O2 Delivery Room Air Room Air Capillary Refill : Progress Note : Time: 13:16 Progress Note Aseptic vital signs. Breath sounds are clear we'll plan on getting a chest x- ray since she's had a productive cough for a week. Lab and give her a liter of LR since she's climbing dizziness. Oropharynx may be mildly dry. We'll do a set of orthostatic vital signs. Diagnostic Imaging Diagonstic Imaging: Xray Plain Films/CT/US/NM/MRI: chest (2v) Comments [email or web address] [place], [place] NAME: PUJA WOLF [facility] REC#: [id number] PT STATUS: REG ER : 1965 PHYSICIAN: ACE POPE MD ADMIT DATE: 03/08/19/ER Draft Date of Exam:03/08/19 CHEST PA/LAT (2 VIEW) PATIENT HISTORY: Cough, vomiting, and dizziness. TECHNIQUE: Two views of the chest. COMPARISON: 11/16/2018. FINDINGS: The lung volumes are normal. No focal consolidation is seen. No large pleural effusion or pneumothorax is seen. The cardiomediastinal silhouette is normal in size and contour. No acute osseous abnormality is seen. Cholecystectomy clips are noted. IMPRESSION: No acute pulmonary abnormality seen. Dictated on workstation # [id number] Dict: 03/08/19 1401 Trans: 03/08/19 1404 [id number] Interpreted by: SOMMER MCLAUGHLIN MD Electronically signed by: Reviewed: Reviewed by Me Departure Impression Primary Impression: Bronchitis Disposition: 01 HOME, SELF-CARE Condition: Stable Departure-Patient Inst. Decision time for Depature: 14:14 Referrals: MALA PEREZ DO (PCP/Family) Primary Care Physician Patient Instructions: Acute Bronchitis, Adult (DC) Add. Discharge Instructions: You have bronchitis which is not proven to be helped with antibiotics. It is typically caused by a virus for which she needed time, fluids and rest to recover from. Tylenol 1000 g every 8 hours in addition to ibuprofen 800 mg every 8 hours can be helpful. Humidifiers and vapor rubs such as Vicks or Mentholatum. If your symptoms do not improve in 10-14 days then you should follow-up with primary care for reexamination. Work/School Note: Work Release Form Date Seen in the Emergency Department: Mar 08, 2019 Return to Work: Mar 09, 2019 Restrictions: No Restrictions ACE POPE Mar 08, 2019 13:15
[2019-03-08 13:21] LABS: BASOPHILS # (AUTO) 0.2 10^3/uL (0.0-0.1); BASOPHILS % (AUTO) 2 % (0-10); EOSINOPHILS # (AUTO) 0.4 10^3/uL (0.0-0.3); EOSINOPHILS % (AUTO) 4 % (0-10); HEMATOCRIT 42 % (35-52); HEMOGLOBIN 14.4 G/DL (11.5-16.0); LYMPHOCYTES # (AUTO) 5.1 X 10^3 (1.0-4.0); LYMPHOCYTES % (AUTO) 51 % (12-44); MEAN CORPUSCULAR HEMOGLOBIN 31 PG (25-34); MEAN CORPUSCULAR HGB CONC 34 G/DL (32-36); MEAN CORPUSCULAR VOLUME 90 FL (80-99); MEAN PLATELET VOLUME 9.6 FL (7.4-10.4); MONOCYTES # (AUTO) 1.2 X 10^3 (0.0-1.0); MONOCYTES % (AUTO) 12 % (0-12); NEUTROPHILS # (AUTO) 3.1 X 10^3 (1.8-7.8); NEUTROPHILS % (AUTO) 31 % (42-75); PLATELET COUNT 418 10^3/uL (130-400); RED CELL DISTRIBUTION WIDTH 13.7 % (10.0-14.5)
[2019-03-08 13:44] LABS: ALBUMIN 4.4 GM/DL (3.2-4.5); BILIRUBIN,TOTAL 0.5 MG/DL (0.1-1.0); CALCIUM 10.3 MG/DL (8.5-10.1); CREATININE SERUM 0.99 MG/DL (0.60-1.30); POTASSIUM 3.8 MMOL/L (3.6-5.0); TOTAL PROTEIN 7.9 GM/DL (6.4-8.2)
--- NOTE | 2019-03-08 14:04 | Diagnostic Imaging Report ---
PATIENT HISTORY: Cough, vomiting, and dizziness. TECHNIQUE: Two views of the chest. COMPARISON: 11/16/2018. FINDINGS: The lung volumes are normal. No focal consolidation is seen. No large pleural effusion or pneumothorax is seen. The cardiomediastinal silhouette is normal in size and contour. No acute osseous abnormality is seen. Cholecystectomy clips are noted. IMPRESSION: No acute pulmonary abnormality seen. Dictated by: Dictated on workstation # [id number]
[2019-03-08] MEDS ORDERED: GUAI120L56 PO (14:20)
[2019-03-08 14:28] VITALS: BP 149/89
== END 2019-03-08 14:30 | disposition home or self-care (01) ==
LOC: EDUNIT# 12:17 → ER 12:18
DX: J40 Bronchitis, not specified as acute or chronic (principal); E78.00 Pure hypercholesterolemia, unspecified; K21.9 Gastro-esophageal reflux disease without esophagitis; E03.9 Hypothyroidism, unspecified; Z92.21 Personal history of antineoplastic chemotherapy; Z85.6 Personal history of leukemia; Z79.51 Long term (current) use of inhaled steroids; Z79.52 Long term (current) use of systemic steroids; Z90.710 Acquired absence of both cervix and uterus; Z94.81 Bone marrow transplant status; Z82.49 Family history of ischemic heart disease and other diseases of the circulatory system; Z90.81 Acquired absence of spleen; Z87.01 Personal history of pneumonia (recurrent)
CPT/HCPCS: 36415; 71046; 80053; 85025; 86141; 87804

== ENCOUNTER 2019-04-04 19:30 | Inpatient (IN) | payer OTHER, MEDICARE ==
[~2019-04-04] VITALS: Ht 162.6 cm; Wt 74.5 kg
[~2019-04-04 19:30] MED LIST changes: +GUAI120L56 PO
--- NOTE | 2019-04-04 19:59 | ED General ---
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 Had symptoms consistent with bronchitis about a week ago. Timing/Duration: 12-24 Hours Severity: Moderate Associated Systoms: Cough, Fever/Chills, Headaches (ANGELITO LOPEZ APRN) Allergies and Home Medications Allergies Coded Allergies: No Known Drug Allergies (Unverified , 10/08/15) Home Medications Albuterol Sulfate 1.25 Mg/3 Ml Vial.neb, 1.25 MG NEB TID PRN for WHEEZING, ( Reported) Atorvastatin Calcium 10 Mg Tablet, 10 MG PO DAILY, (Reported) Cefdinir 300 Mg Capsule, 300 MG PO BID Prescribed by: MALA PEREZ on 10/10/18 110 Fluticasone/Salmeterol 1 Each Blst.w.dev, 1 PUFF INH BID PRN for WHEEZING, ( Reported) Guaifenesin/Codeine Phosphate 120 Ml Liquid, 5 ML PO Q6H PRN for COUGH Prescribed by: ACE GAYTAN on 03/08/19 1420 Hydrocodone/Chlorphen P-Stirex 473 Ml Yvrose.er.12h, 5 ML PO Q12HR Prescribed by: MALA PEREZ on 10/10/18 110 Lansoprazole 30 Mg Capsule.dr, 30 MG PO DAILY, (Reported) Levothyroxine Sodium 175 Mcg Tablet, 175 MCG PO DAILY, (Reported) Montelukast Sodium 10 Mg Tablet, 10 MG PO HS Prescribed by: MALA PEREZ on 10/10/18 1103 [place]-3 Acid Ethyl Esters 1 Gm Capsule, 2 GM PO BID, (Reported) Prednisone 10 Mg Tab.ds.pk, 20 MG PO DAILY Take 6 tabs(60mg)daily,decrease by 1 tab(10MG)daily. Prescribed by: MALA PEREZ on 10/10/18 1103 Vits #93/Iron Fum/FA 1 Each Tablet, 1 TAB PO DAILY, (Reported) Valacyclovir HCl 1,000 Mg Tablet, 1,000 MG PO DAILY PRN for FLARE UP, (Reported) [Zolpidem Tartrate] 5 MG TAB, 5 MG PO HS Prescribed by: MALA PEREZ on 10/10/18 1103 Patient Home Medication List Home Medication List Reviewed: Yes (ANGELITO LOPEZ APRN) Review of Systems Review of Systems Constitutional: see HPI, chills, fever EENTM: see HPI Respiratory: see HPI, cough Genitourinary: no symptoms reported Musculoskeletal: no symptoms reported Skin: no symptoms reported Psychiatric/Neurological: No Symptoms Reported, Headache Hematologic/Lymphatic: No Symptoms Reported Immunological/Allergic: see HPI (asplenia; hx leukemia) (ANGELITO LOPEZ APRN) Past Fiqljzy-Wqmplt-Vjctmz Hx Patient Social History Alcohol Beverage of Choice: Wine 2nd Hand Smoke Exposure: No Recent Foreign Travel: No Contact w/Someone Who Travel: No Recent Hopitalizations: Yes (August) (ANGELITO LOPEZ APRN) Immunizations Up To Date Tetanus Booster (TDap): Unknown Date of Influenza Vaccine: Sep 02, 2018 (ANGELITO LOPEZ APRN) Seasonal Allergies Seasonal Allergies: No (ANGELITO LOPEZ APRN) Past Medical History Surgeries: Yes (bone marrow transplant, splenectomy) Abdominal, Gallbladder, Hysterectomy Respiratory: Yes (BRONCHITIS) Pneumonia Currently Using CPAP: No Currently Using BIPAP: No Cardiac: Yes High Cholesterol Neurological: No Reproductive Disorders: No Sexually Transmitted Disease: No Genitourinary: No Gastrointestinal: Yes Gastroesophageal Reflux Musculoskeletal: No Arthritis Endocrine: Yes Hypothyroidsim HEENT: No Cancer: Yes Leukemia What Type of Treatment Did You: Chemotherapy, Radiation Psychosocial: No Integumentary: No Blood Disorders: No Adverse Reaction/Blood Tranf: Yes (high fever) (ANGELITO LOPEZ APRN) Family Medical History Hypertension (ANGELITO LOPEZ APRN) Physical Exam Vital Signs Vital Signs - First Documented 04/04/19 19:36 Temp 102.6 Pulse 121 Resp 24 B/P (MAP) 160/104 (122) Pulse Ox 93 O2 Delivery Room Air (ACE GAYTAN) Vital Signs Capillary Refill : (ANGELITO LOPEZ APRN) Height, Weight, BMI Height: 5'4.00" Weight: 160lbs. 0.0oz. 72.438333dg; 28.3 BMI Method:Stated General Appearance: No Apparent Distress, WD/WN, Other (alert and oriented GCS 15, able to converse with me appropriately able to flex her chin to her chest without any increase in her neck pain, or neck pain does increase when she turns her head to the left however. I suspect this is simply muscular type neck pain as opposed to meningeal irritation, unfortunately with her asplenia, complaints of neck pain and fever of 103 at home, there is no way to avoid a lumbar puncture.) HEENT: PERRL/EOMI, TMs Normal Neck: Full Range of Motion, Normal Inspection; No Lymphadenopathy (L), No Lymphadenopathy (R) Respiratory: Chest Non Tender, Lungs Clear, Normal Breath Sounds, No Accessory Muscle Use, No Respiratory Distress; No Wheezing Cardiovascular: Normal Peripheral Pulses, Tachycardia Gastrointestinal: Normal Bowel Sounds, Non Tender, Soft Extremity: Normal Capillary Refill, Normal Inspection Neurologic/Psychiatric: Alert, Oriented x3 Skin: Normal Color, Warm/Dry (ANGELITO LOPEZ APRN) Focused Exam Lactate Level 04/04/19 19:51: Lactic Acid Level 1.94 (ACE GAYTAN) Lactic Acid Level Laboratory Tests Test 04/04/19 19:51 Lactic Acid Level 1.94 MMOL/L (0.50-2.00) (ACE GAYTAN) Procedures/Interventions Discussed Risk,Benefits: Yes Patient Consents: Yes Position: Lying, L4-5 Sterile Technique: Yes Opening Pressure: 20 cmh20 Fluid Color: clear Size of Disposal Tray Used: Adult Tre[place]len tap x1 attempt (ACE GAYTAN) Progress/Results/Core Measures Suspected Sepsis SIRS Temperature: Pulse: Respiratory Rate: Laboratory Tests 04/04/19 19:51: White Blood Count 15.0H Blood Pressure / Mean: 04/04/19 19:51: Lactic Acid Level 1.94 Laboratory Tests 04/04/19 19:51: Creatinine 1.00, INR Comment 0.9, Platelet Count 325, Total Bilirubin 0.5 (ANGELITO LOPEZ APRN) Results/Orders Lab Results Laboratory Tests Test 04/04/19 19:51 04/04/19 19:54 04/04/19 20:24 Range/Units White Blood Count 15.0 H 4.3-11.0 10^3/uL Red Blood Count 4.58 4.35-5.85 10^6/uL Hemoglobin 14.0 11.5-16.0 G/DL Hematocrit 41 35-52 % Mean Corpuscular Volume 90 80-99 FL Mean Corpuscular Hemoglobin 31 25-34 PG Mean Corpuscular Hemoglobin Concent 34 32-36 G/DL Red Cell Distribution Width 14.2 10.0-14.5 % Platelet Count 325 130-400 10^3/uL Mean Platelet Volume 10.1 7.4-10.4 FL Neutrophils (%) (Auto) 77 H 42-75 % Lymphocytes (%) (Auto) 12 12-44 % Monocytes (%) (Auto) 10 0-12 % Eosinophils (%) (Auto) 1 0-10 % Basophils (%) (Auto) 1 0-10 % Neutrophils # (Auto) 11.5 H 1.8-7.8 X 10^3 Lymphocytes # (Auto) 1.7 1.0-4.0 X 10^3 Monocytes # (Auto) 1.5 H 0.0-1.0 X 10^3 Eosinophils # (Auto) 0.1 0.0-0.3 10^3/uL Basophils # (Auto) 0.1 0.0-0.1 10^3/uL Neutrophils % (Manual) 84 % Lymphocytes % (Manual) 12 % Monocytes % (Manual) 4 % Blood Morphology Comment NORMAL Prothrombin Time 12.6 12.2-14.7 SEC INR Comment 0.9 0.8-1.4 Activated Partial Thromboplast Time 26 24-35 SEC Sodium Level 135 135-145 MMOL/L Potassium Level 3.9 3.6-5.0 MMOL/L Chloride Level 100 98-107 MMOL/L Carbon Dioxide Level 20 L 21-32 MMOL/L Anion Gap 15 H 5-14 MMOL/L Blood Urea Nitrogen 18 7-18 MG/DL Creatinine 1.00 0.60-1.30 MG/DL Estimat Glomerular Filtration Rate 58 BUN/Creatinine Ratio 18 Glucose Level 120 H 70-105 MG/DL Lactic Acid Level 1.94 0.50-2.00 MMOL/L Calcium Level 10.3 H 8.5-10.1 MG/DL Corrected Calcium 9.9 8.5-10.1 MG/DL Total Bilirubin 0.5 0.1-1.0 MG/DL Aspartate Amino Transf (AST/SGOT) 58 H 5-34 U/L Alanine Aminotransferase (ALT/SGPT) 87 H 0-55 U/L Alkaline Phosphatase 125 40-136 U/L Total Protein 8.3 H 6.4-8.2 GM/DL Albumin 4.5 3.2-4.5 GM/DL Group A Streptococcus Screen NEGATIVE NEGATIVE Urine Color YELLOW Urine Clarity CLEAR Urine pH 6 5-9 Urine Specific [place] 1.020 1.016-1.022 Urine Protein 4+ NEGATIVE Urine Glucose (UA) NEGATIVE NEGATIVE Urine Ketones NEGATIVE NEGATIVE Urine Nitrite NEGATIVE NEGATIVE Urine Bilirubin NEGATIVE NEGATIVE Urine Urobilinogen NORMAL NORMAL MG/DL Urine Leukocyte Esterase NEGATIVE NEGATIVE Urine RBC (Auto) 1+ H NEGATIVE Urine RBC 0-2 /HPF Urine WBC 2-5 /HPF Urine Crystals NONE /LPF Urine Bacteria NEGATIVE /HPF Urine Casts NONE /LPF Urine Mucus NEGATIVE /LPF Urine Culture Indicated NO (ACE GAYTAN) Medications Given in ED Current Medications Medications Dose Ordered Sig/Dahlia Route Start Time Stop Time Status Last Admin Dose Admin Acetaminophen 1,000 mg ONCE ONCE PO 04/04/19 20:00 04/04/19 20:01 DC 04/04/19 20:10 1,000 MG Lidocaine HCl 20 ml STK-MED ONCE .ROUTE 04/04/19 20:32 04/04/19 20:37 DC 04/04/19 20:38 20 ML (ACE GAYTAN) Vital Signs/I&O 04/04/19 04/04/19 19:36 20:10 Temp 102.6 102.6 Pulse 121 Resp 24 B/P (MAP) 160/104 (122) Pulse Ox 93 O2 Delivery Room Air (ACE GAYTAN) Vital Signs/I&O Capillary Refill : (ANGELITO LOPEZ APRN) Diagnostic Imaging Diagonstic Imaging: Xray Comments NAME: [facility] REC#: [id number] PT STATUS: REG ER : 1965 PHYSICIAN: ANGELITO LOPEZ APRN ADMIT DATE: 04/04/19/ER Draft Date of Exam:04/04/19 CHEST 1 VIEW, AP/PA ONLY INDICATION: Neck and chest discomfort with cough, nausea and fever. EXAMINATION: Upright portable AP view of the chest was obtained. COMPARISON: Examination of 03/08/2019. FINDINGS: Heart size and pulmonary vascularity are within normal limits, and the lungs are clear, bilaterally. IMPRESSION: Unremarkable chest. Dictated on workstation # [id number] Dict: 04/04/192033 Trans: 04/04/192037 PJE [id number] Interpreted by: FABIANA OVERTON MD Electronically signed by: (ANGELITO LOPEZ APRN) Departure Communication (Admissions) Time/Spoke to Admitting Phy: 21:[address] Childs. We will admit to medical floor, the heart rate has reduced to 108 with temperature reduction, oxygen saturation remained greater than 97%, blood pressure down to 130s systolic. She is feeling much better at this time. We will use of pain and doxycycline empirically. We'll have her primary care provider Dr. Buck see her in the morning. 2043-liver enzymes and elevated before, prior history of [place]. Dr. Gaytan is doing diagnostic lumbar puncture at this time. We will empirically give 2 g of Cefepime intravenously while awaiting those results after it has been collected. (ANGELITO LOPEZ APRN) Impression Primary Impression: Febrile illness Additional Impression: Bronchitis Disposition: ADMITTED INPATIENT Condition: Stable Admissions Decision to Admit Reason: Admit from ER (General) Decision to Admit/Date: April 04, 2019 Time/Decision to Admit Time: 20:44 (ANGELITO LOPEZ APRN) Departure-Patient Inst. Referrals: SARAH BUCK MD (PCP) Primary Care Physician MALA PEREZ DO (Family) Primary Care Physician ANGELITO LOPEZ APRN April 04, 2019 19:59 ACE GAYTAN April 04, 2019 20:57
[2019-04-04] MEDS ORDERED: ACETAMINOPHEN 500 MG TAB (TYLENOL) PO ONE (20:00)
[2019-04-04] MEDS ORDERED: NS IV 1000 ML 1,000 ML IV SCH (20:00)
[2019-04-04 20:05] LABS: BASOPHILS # (AUTO) 0.1 10^3/uL (0.0-0.1); BASOPHILS % (AUTO) 1 % (0-10); EOSINOPHILS # (AUTO) 0.1 10^3/uL (0.0-0.3); EOSINOPHILS % (AUTO) 1 % (0-10); HEMATOCRIT 41 % (35-52); LYMPHOCYTES # (AUTO) 1.7 X 10^3 (1.0-4.0); LYMPHOCYTES % (AUTO) 12 % (12-44); MEAN CORPUSCULAR HEMOGLOBIN 31 PG (25-34); MEAN CORPUSCULAR HGB CONC 34 G/DL (32-36); MEAN CORPUSCULAR VOLUME 90 FL (80-99); MEAN PLATELET VOLUME 10.1 FL (7.4-10.4); MONOCYTES # (AUTO) 1.5 X 10^3 (0.0-1.0); MONOCYTES % (AUTO) 10 % (0-12); NEUTROPHILS # (AUTO) 11.5 X 10^3 (1.8-7.8); NEUTROPHILS % (AUTO) 77 % (42-75); PLATELET COUNT 325 10^3/uL (130-400); RED CELL DISTRIBUTION WIDTH 14.2 % (10.0-14.5)
[2019-04-04 20:21] LABS: INR 0.9 (0.8-1.4); PROTHROMBIN TIME PATIENT 12.6 SEC (12.2-14.7)
[2019-04-04 20:28] LABS: BILIRUBIN,URINE NEGATIVE (NEGATIVE); CLARITY,URINE CLEAR; COLOR,URINE YELLOW; GLUCOSE, URINE (UA) NEGATIVE (NEGATIVE); KETONES,URINE NEGATIVE (NEGATIVE); LEUKOCYTE ESTERASE ,URINE NEGATIVE (NEGATIVE); NITRITE,URINE NEGATIVE (NEGATIVE); PH,URINE 6 (5-9); PROTEIN,URINE 4+ (NEGATIVE); UROBILINOGEN,URINE NORMAL (NORMAL)
[2019-04-04] MEDS ORDERED: LIDOCAINE 1% INJ 20 ML 20 ML VIAL ONE (20:32)
--- NOTE | 2019-04-04 20:32 | Diagnostic Imaging Report ---
PROCEDURE: CT head without contrast. TECHNIQUE: Multiple contiguous axial images were obtained through the brain without the use of intravenous contrast. Auto Exposure Controls were utilized during the CT exam to meet ALARA standards for radiation dose reduction. INDICATION: Fever with nausea and neck discomfort. CT HEAD: CT images of the head were obtained. FINDINGS: Ventricles and sulci are within normal limits for size. There is no intracranial hemorrhage identified. There is no abnormal mass effect or shift of midline structures. IMPRESSION: Unremarkable CT of the head. Dictated by: Dictated on workstation # [id number]
[2019-04-04 20:37] LABS: BACTERIA,URINE NEGATIVE /HPF; RBC,URINE 0-2 /HPF
--- NOTE | 2019-04-04 20:38 | Diagnostic Imaging Report ---
INDICATION: Neck and chest discomfort with cough, nausea and fever. EXAMINATION: Upright portable AP view of the chest was obtained. COMPARISON: Examination of 03/08/2019. FINDINGS: Heart size and pulmonary vascularity are within normal limits, and the lungs are clear, bilaterally. IMPRESSION: Unremarkable chest. Dictated by: Dictated on workstation # [id number]
[2019-04-04 20:41] LABS: ALBUMIN 4.5 GM/DL (3.2-4.5); BILIRUBIN,TOTAL 0.5 MG/DL (0.1-1.0); CALCIUM 10.3 MG/DL (8.5-10.1); POTASSIUM 3.9 MMOL/L (3.6-5.0); TOTAL PROTEIN 8.3 GM/DL (6.4-8.2)
[2019-04-04] MEDS ORDERED: cefTRIAXone FOR IV USE 2,000 MG in WATER (STERILE) FOR INJECTION 20 ML IV ONE (20:45)
[2019-04-04 20:48] LABS: LYMPHOCYTES % (MANUAL) 12 %; MONOCYTES % (MANUAL) 4 %; NEUTROPHILS % (MANUAL) 84 %; RBC MORPH NORMAL
--- NOTE | 2019-04-04 20:55 | NUR ---
Pt tolerated lumbar puncture well. Currently laying supine on ED cart.
--- NOTE | 2019-04-04 20:55 | NUR ---
CSF fluid drawn @ 2044 arrived to lab by this RN and personally handed to [employer].
[2019-04-04] MEDS ORDERED: CEFEPIME INJECTION 2,000 MG in WATER (STERILE) FOR INJECTION 20 ML IV ONE (21:00)
[2019-04-04 21:08] LABS: CSF GLUCOSE 74 MG/DL (50-80); CSF TOTAL PROTEIN 41 MG/DL (15-40)
[2019-04-04 21:11] LABS: APPEARANCE,CSF CLEAR; COLOR,CSF COLORLESS
[2019-04-04] MEDS ORDERED: fentaNYL INJECTION 100 MCG/2 ML AMP ONE (21:15)
[2019-04-04 21:29] LABS: RED BLOOD CELL,CSF 4 CELLS (0-0); WHITE BLOOD CELL,CSF 1 CELLS (0-5)
[2019-04-04 21:30] LABS: CSF TUBE NUMBER 4
--- OUTSIDE RECORDS SUMMARY | 2019-04-04 22:39 | XMS REPORT | Continuity of Care Document ---
Author Organization Unknown Address Unknown Allergies Active Description Code Type Severity Reaction Onset Reported/Identified Relationship to Patient Clinical Status Yes No Known Drug Allergies [id number] Drug Allergy Unknown N/A 10/08/2015 Medications There is no data. 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 02/22/2016 NIVIA PENA MD Ot R10.11 02/22/2016 NIVIA PENA MD Ot R74.0 03/04/2016 NIVIA PENA MD Ot R10.11 03/04/2016 INVIA PENA MD Ot R74.0 01/08/2017 CECIL HERNANDEZ [...] ELEV OF LEVELS OF TRANSAMNS LA 07/31/2017 ANA LOOMIS MALA Ot E04.1 NONTOXIC SINGLE THYROID NODULE 08/14/2017 KIMBERLY PEREZ DOI Ot E04.1 NONTOXIC SINGLE THYROID NODULE 08/07/2018 ANA LOOMIS MALA Ot 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, UNSPECIFIED, NOT HAVIN 08/07/2018 ANA LOOMIS MALA Ot D72.823 LEUKEMOID REACTION 08/07/2018 ANA LOOMIS MALA Ot E03.9 HYPOTHYROIDISM, UNSPECIFIED 08/07/2018 ANA LOOMIS MALA Ot E78.00 PURE HYPERCHOLESTEROLEMIA, UNSPECIFIED 08/07/2018 ANA LOOMIS MALA Ot J20.9 ACUTE BRONCHITIS, UNSPECIFIED 08/07/2018 ANA LOOMIS MALA Ot K21.9 GASTRO-ESOPHAGEAL REFLUX DISEASE WITHOUT 08/07/2018 ANA LOOMIS MALA Ot R06.2 WHEEZING 08/07/2018 ANA LOOMIS MALA Ot R50.9 FEVER, UNSPECIFIED 08/07/2018 ANA LOOMIS MALA Ot R74.8 ABNORMAL LEVELS OF OTHER SERUM ENZYMES 08/07/2018 ANA LOOMIS MALA Ot R80.9 PROTEINURIA, UNSPECIFIED 08/07/2018 ANA LOOMIS MALA Ot Z92.21 PERSONAL HISTORY OF ANTINEOPLASTIC CHEMO 08/07/2018 KIMBERLY PEREZ DOI Ot Z92.3 PERSONAL HISTORY OF IRRADIATION 10/09/2018 ANA LOOMIS MALA Ot C95.91 LEUKEMIA, UNSPECIFIED, IN REMISSION 10/09/2018 ANA LOOMIS MALA Ot D72.823 LEUKEMOID REACTION 10/09/2018 ANA LOOMIS MALA Ot E03.9 HYPOTHYROIDISM, UNSPECIFIED 10/09/2018 ANA LOOMIS MALA Ot E78.00 PURE HYPERCHOLESTEROLEMIA, UNSPECIFIED 10/09/2018 ANA LOOMIS MALA Ot F51.01 PRIMARY INSOMNIA 10/09/2018 ANA LOOMIS MALA Ot J18.1 LOBAR PNEUMONIA, UNSPECIFIED ORGANISM 10/09/2018 ANA LOOMIS MALA Ot J20.9 ACUTE BRONCHITIS, UNSPECIFIED 10/09/2018 ANA LOOMIS MALA Ot K21.9 GASTRO-ESOPHAGEAL REFLUX DISEASE WITHOUT 10/09/2018 ANA LOOMIS MALA Ot K59.01 SLOW TRANSIT CONSTIPATION 10/09/2018 ANA LOOMIS MALA Ot K75.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 (RICHARD) 10/09/2018 KIMBERLY PEREZ DOI Ot M19.91 PRIMARY OSTEOARTHRITIS, UNSPECIFIED SITE 10/09/2018 MALA PEREZ DO Ot R06.2 WHEEZING 10/09/2018 MALA PEREZ DO Ot R94.5 ABNORMAL RESULTS [...] Ot M19.91 PRIMARY OSTEOARTHRITIS, UNSPECIFIED SITE 10/10/2018 KIMBERLY PEREZ DOI Ot R06.2 WHEEZING 10/10/2018 KIMBERLY PEREZ DOI Ot R74.8 ABNORMAL LEVELS OF OTHER SERUM ENZYMES 10/10/2018 MALA PEREZ DO Ot R94.5 ABNORMAL RESULTS OF LIVER FUNCTION STUDI 10/10/2018 MALA PEREZ DO Ot T38.0X5A ADVERSE EFFECT OF GLUCOCORT/SYNTH ANALOG 10/10/2018 KIMBERLY PEREZ DOI Ot Z92.21 PERSONAL HISTORY OF ANTINEOPLASTIC CHEMO 10/10/2018 MALA PEREZ DO Ot Z92.3 PERSONAL HISTORY OF IRRADIATION 10/10/2018 [...] DOI Ot K75.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 (RICHARD) 10/13/2018 ANA [...] LOOMIS MALA Ot D72.823 LEUKEMOID REACTION 10/13/2018 KIMBERLY PEREZ DOI Ot E03.9 HYPOTHYROIDISM, UNSPECIFIED 10/13/2018 ANA LOOMIS MALA Ot E78.00 PURE HYPERCHOLESTEROLEMIA, UNSPECIFIED 10/13/2018 ANA LOOMIS MALA Ot F51.01 PRIMARY INSOMNIA 10/13/2018 ANA LOOMIS MALA Ot J18.1 LOBAR PNEUMONIA, UNSPECIFIED ORGANISM 10/13/2018 KIMBERLY PEREZ DOI Ot J20.9 ACUTE BRONCHITIS, UNSPECIFIED 10/13/2018 ANA LOOMIS MALA Ot K21.9 GASTRO-ESOPHAGEAL REFLUX DISEASE WITHOUT 10/13/2018 ANA LOOMIS MALA Ot K59.01 SLOW TRANSIT CONSTIPATION 10/13/2018 KIMBERLY PEREZ DOI Ot K75.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 (RICHARD) 10/13/2018 ANA LOOMIS MALA Ot M19.91 PRIMARY OSTEOARTHRITIS, UNSPECIFIED SITE 10/13/2018 KIMBERLY PEREZ DOI Ot R06.2 WHEEZING 10/13/2018 KIMBERLY PEREZ DOI Ot R94.5 ABNORMAL RESULTS OF LIVER FUNCTION STUDI 10/13/2018 MALA PEREZ DO Ot T38.0X5A ADVERSE EFFECT OF GLUCOCORT/SYNTH ANALOG 10/13/2018 MALA PEREZ DO Ot Z92.21 PERSONAL HISTORY OF ANTINEOPLASTIC CHEMO 10/13/2018 MALA PEREZ DO Ot Z92.3 PERSONAL HISTORY OF IRRADIATION 10/13/2018 KIMBERLY PEREZ DOI Ot 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 10/13/2018 KIMBERLY PEREZ DOI Ot C95.91 LEUKEMIA, UNSPECIFIED, IN REMISSION 10/13/2018 KIMBERLY PEREZ DOI Ot D72.823 LEUKEMOID REACTION 10/13/2018 MALA PEREZ DO Ot E03.9 HYPOTHYROIDISM, UNSPECIFIED 10/13/2018 KIMBERLY PEREZ DOI Ot E78.00 PURE HYPERCHOLESTEROLEMIA, UNSPECIFIED 10/13/2018 KIMBERLY PEREZ DOI Ot F51.01 PRIMARY INSOMNIA 10/13/2018 KIMBERLY PEREZ DOI Ot J18.1 LOBAR PNEUMONIA, UNSPECIFIED ORGANISM 10/13/2018 [...] DO Ot 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 10/20/2018 MALA PEREZ DO Ot R06.2 WHEEZING 11/17/2018 MALA PEREZ DO Ot J32.9 CHRONIC SINUSITIS, UNSPECIFIED 11/17/2018 MALA PEREZ DO Ot J45.909 UNSPECIFIED ASTHMA, UNCOMPLICATED 11/17/2018 MALA PEREZ DO Ot M79.645 PAIN IN LEFT FINGER(S) 03/08/2019 NIVIA PENA MD Ot R10.11 RIGHT UPPER QUADRANT PAIN 03/08/2019 NIVIA PENA MD Ot R74.0 NONSPEC ELEV OF LEVELS OF TRANSAMNS LA 03/08/2019 MALA PEREZ DO Ot E04.1 NONTOXIC SINGLE THYROID NODULE 03/08/2019 MALA PEREZ DO Ot R06.2 WHEEZING 03/08/2019 MALA PEREZ DO Ot J32.9 CHRONIC SINUSITIS, UNSPECIFIED 03/08/2019 MALA PEREZ DO Ot J45.909 UNSPECIFIED ASTHMA, UNCOMPLICATED 03/08/2019 MALA PEREZ DO Ot M79.645 PAIN IN LEFT FINGER(S) 03/08/2019 ACE POPE MD Ot E03.9 HYPOTHYROIDISM, UNSPECIFIED 03/08/2019 NIKO STOREY, ACE Rosales Ot E78.00 PURE HYPERCHOLESTEROLEMIA, UNSPECIFIED 03/08/2019 NIKO STOREY, ACE Rosales Ot J40 BRONCHITIS, NOT SPECIFIED ACUTE OR CH 03/08/2019 NIKO STOREY, ACE J Ot K21.9 GASTRO-ESOPHAGEAL REFLUX DISEASE WITHOUT 03/08/2019 ACE POPE MD J Ot R05 COUGH 03/08/2019 ACE POPE MD Ot Z79.51 [employer] (CURRENT) USE OF INHALED STERO 03/08/2019 ACE POPE MD Ot Z79.52 [employer] (CURRENT) USE OF SYSTEMIC STER 03/08/2019 ACE POPE MD Ot Z82.49 FAMILY HX OF ISCHEM HEART DIS AND OTH DI 03/08/2019 ACE POPE MD, Ot Z85.6 PERSONAL HISTORY OF LEUKEMIA 03/08/2019 ACE POPE MD Ot Z87.01 PERSONAL HISTORY OF PNEUMONIA (RECURRENT 03/08/2019 ACE POPE MD Ot Z90.710 ACQUIRED ABSENCE OF BOTH CERVIX AND UTER 03/08/2019 ACE POPE MD Ot Z90.81 ACQUIRED ABSENCE OF SPLEEN 03/08/2019 ACE POPE MD Ot Z92.21 PERSONAL HISTORY OF ANTINEOPLASTIC CHEMO 03/08/2019 ACE POPE MD, Ot 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 Procedures [...] culture - 08/06/18 17:04 Bacterial blood culture [facility] Complete blood count (CBC) with automated white [...] - 08/06/18 17:12 Bacterial blood culture NG [facility] Influenza virus A and B antigen detection - 08/06/18 18:00 FLU RESULT NEGATIVE FOR INFLUENZA A AND B ANTIGENS BY IA [facility] Blood lactic acid measurement (moles/volume) - 08/06/18 18:00 Blood lactic acid measurement (moles/volume) 1.97 mmol/L 0.50-2.00 Sputum Gram stain - 08/06/18 18:00 Sputum Gram stain REPORTED 08-07-2018, 1705. [facility] Bacterial sputum culture - 08/06/18 18:00 Bacterial sputum culture NORMAL [facility] Complete blood count (CBC) with [...] 16:13 Sputum Gram stain Mixed Bacterial Dawna NRG Bacterial sputum culture - 10/06/18 16:13 QUANTITY OF GROWTH . NRG Bacterial sputum culture USUAL RESP NRG Influenza virus A and B antigen detection - 10/06/18 16:40 FLU RESULT NEGATIVE FOR INFLUENZA A AND B ANTIGENS BY IA NRG Bacterial blood culture - 10/06/18 17:30 Bacterial blood culture NG [facility] Complete blood count (CBC) with [...] detection by light microscopy SLIGHT NRG Blood [place] bodies detection by light microscopy SLIGHT NRG [...] automated white blood cell (WBC) differential - 03/08/19 13:10 Blood leukocytes automated count (number/volume) 10.0 10*3/uL 4.3-11.0 Blood erythrocytes automated count (number/volume) 4.64 10*6/uL 4.35-5.85 Venous blood hemoglobin measurement (mass/volume) 14.4 g/dL 11.5-16.0 Blood hematocrit (volume fraction) 42 % 35-52 Automated erythrocyte mean corpuscular volume 90 [foz_us] 80-99 Automated erythrocyte mean corpuscular hemoglobin (mass per erythrocyte) 31 pg 25-34 Automated erythrocyte mean corpuscular hemoglobin concentration measurement ( mass/volume) 34 g/dL 32-36 Automated erythrocyte distribution width ratio 13.7 % 10.0-14.5 Automated blood platelet count (count/volume) 418 10*3/uL 130-400 Automated blood platelet mean volume measurement 9.6 [foz_us] 7.4-10.4 Automated blood neutrophils/100 leukocytes 31 % 42-75 Automated blood lymphocytes/100 leukocytes 51 % 12-44 Blood monocytes/100 leukocytes 12 % 0-12 Automated blood eosinophils/100 leukocytes 4 % 0-10 Automated blood basophils/100 leukocytes 2 % 0-10 Blood neutrophils automated count (number/volume) 3.1 10*3 1.8-7.8 Blood lymphocytes automated count (number/volume) 5.1 10*3 1.0-4.0 Blood monocytes automated count (number/volume) 1.2 10*3 0.0-1.0 Automated eosinophil count 0.4 10*3/uL 0.0-0.3 Automated blood basophil count (count/volume) 0.2 10*3/uL 0.0-0.1 Influenza virus A and B antigen detection - 03/08/19 13:10 FLU RESULT NEGATIVE FOR INFLUENZA A AND B ANTIGENS BY [facility] [place] Comprehensive metabolic panel - 03/08/19 13:10 Serum or plasma sodium measurement (moles/volume) 135 mmol/L 135-145 Serum or plasma potassium measurement (moles/volume) 3.8 mmol/L 3.6-5.0 Serum or plasma chloride measurement (moles/volume) 101 mmol/L 98-107 Carbon dioxide 24 mmol/L 21-32 Serum or plasma anion gap determination (moles/volume) 10 mmol/L 5-14 Serum or plasma urea nitrogen measurement (mass/volume) 12 mg/dL 7-18 Serum or plasma creatinine measurement (mass/volume) 0.99 mg/dL 0.60-1.30 Serum or plasma urea nitrogen/creatinine mass ratio 12 NRG Serum or plasma creatinine measurement with calculation of estimated glomerular filtration rate 58 [facility] Serum or plasma glucose measurement (mass/volume) 100 mg/dL 70-105 Serum or plasma calcium measurement (mass/volume) 10.3 mg/dL 8.5-10.1 Serum or plasma total bilirubin measurement (mass/volume) 0.5 mg/dL 0.1-1.0 Serum or plasma alkaline phosphatase measurement (enzymatic activity/volume) 125 U/L 40-136 Serum or plasma aspartate aminotransferase measurement (enzymatic activity/ volume) 76 U/L 5-34 Serum or plasma alanine aminotransferase measurement (enzymatic activity/volume ) 87 U/L 0-55 Serum or plasma protein measurement (mass/volume) 7.9 g/dL 6.4-8.2 Serum or plasma albumin measurement (mass/volume) 4.4 g/dL 3.2-4.5 CALCIUM CORRECTED 10.0 mg/dL 8.5-10.1 Serum or plasma C reactive protein measurement (mass/volume) - 03/08/19 13:10 Serum or plasma C reactive protein measurement (mass/volume) 0.35 mg /dL 0.00-0.50 Encounters ACCT No. Visit Date/Time Discharge Status Pt. Type Provider Facility Loc./Unit Complaint [id number] 03/08/2019 12:18:00 03/08/2019 14:30:00 DIS Emergency ACE POPE MD [facility] ER COUGH;VOMITING;DIZZINESS [id number] 11/16/2018 08:30:00 11/16/2018 23:59:59 CLS Outpatient PEREZ DO, MALA [facility] RAD CHRONIC SINUSITIS [id number] 10/08/2018 09:06:00 10/10/2018 12:30:00 DIS Inpatient PEREZ DO, MALA [facility] 4TH WHEEZING [id number] 08/17/2018 16:07:00 08/17/2018 23:59:59 CLS Outpatient PEREZ DO, MALA [facility] RT R06.2 WHEEZING [id number] 08/06/2018 16:04:00 08/07/2018 13:40:00 DIS Inpatient PEREZ DO, MALA [facility] 4TH FEVER [id number] 07/30/2017 11:37:00 07/30/2017 23:59:59 CLS Outpatient PEREZ DO, MALA [facility] RAD E04.1 THYROID NODULE [id number] 01/08/2017 15:55:00 01/08/2017 16:26:00 DIS Emergency CECIL HERNANDEZ [facility] ER HEAD PAIN [id number] 02/19/2016 09:31:00 02/19/2016 23:59:59 CLS Outpatient BECKY STOREY, NIVIA Feliz [facility] RAD RUQ PAIN, INCREASED LFT [id number] 10/08/2015 21:36:00 10/11/2015 13:26:00 DIS Inpatient MALA PEREZ DO [facility] 4TH FEVER OF UNKNOWN ORIGIN, BRONCHITIS
--- NOTE | 2019-04-04 22:40 | NUR ---
PUJA WOLF S admitted to room 417-1, with an admitting diagnosis of febrile illness, URI, on 04/04/19 from ed via [facility], accompanied by staff.PUJA WOLF introduced to surroundings, call light, bed controls, phone, TV, temperature control, lights, meal times, smoking policy, visitor policy, side rail policy, bathrooms and showers. Patient Rights given to patient in the handbook. PUJA WOLF verbalizes understanding that [facility] is not responsible for the loss or damage to any personal effects or valuables that are kept in the patients possession during their hospitalization. The patient's plan of care was discussed with the patient, she agrees to the plan & denies any questions or concerns at this time. PUJA WOLF verbalizes understanding of Interdisciplinary Patient Education. Patient and/or family were informed about the Rapid Response Team and its purpose.
[2019-04-04 23:02] VITALS: BP 134/76
[2019-04-04 23:06] VITALS: BP 128/71
[2019-04-04] MEDS ORDERED: NS IV 1000 ML 1,000 ML ONE (23:25)
[2019-04-04] MEDS ORDERED: RT-ALBUTEROL SULF 2.5 MG/3 ML PRE-MIX VIAL INH PRN (23:30)
[2019-04-04] MEDS ORDERED: CEFEPIME 2,000 MG/SWFI 20 ML IV PUSH IV SCH ×2 (23:45)
[2019-04-04] MEDS ORDERED: ONDANSETRON 4 MG/2 ML (SDV) Z0FRAN IV PRN (23:45)
[2019-04-05] VITALS (7 sets, daily range): BP systolic 117–176; BP diastolic 69–88
[2019-04-05] MEDS: NS IV 1000 ML 1,000 ML IV SCH ×4 (00:22→17:47)
[2019-04-05] MEDS: DOXYCYCLINE INJECTION 100 MG in NS (IVPB) 100 ML IV SCH ×3 (01:13→23:27)
[2019-04-05] MEDS: IBUPROFEN 800 MG (MOTRIN) TAB PO PRN (03:15)
[2019-04-05] MEDS: ACETAMINOPHEN 325 MG TABLET PO PRN ×3 (04:49→19:35)
[2019-04-05] MEDS: fentaNYL INJECTION 100 MCG/2 ML AMP IV PRN (04:56)
[2019-04-05 05:06] LABS: BASOPHILS % (AUTO) 1 % (0-10); EOSINOPHILS # (AUTO) 0.1 10^3/uL (0.0-0.3); EOSINOPHILS % (AUTO) 1 % (0-10); HEMATOCRIT 41 % (35-52); HEMOGLOBIN 13.7 G/DL (11.5-16.0); LYMPHOCYTES # (AUTO) 1.4 X 10^3 (1.0-4.0); LYMPHOCYTES % (AUTO) 11 % (12-44); MEAN CORPUSCULAR HEMOGLOBIN 30 PG (25-34); MEAN CORPUSCULAR HGB CONC 34 G/DL (32-36); MEAN CORPUSCULAR VOLUME 90 FL (80-99); MEAN PLATELET VOLUME 10.4 FL (7.4-10.4); MONOCYTES # (AUTO) 1.8 X 10^3 (0.0-1.0); MONOCYTES % (AUTO) 15 % (0-12); NEUTROPHILS # (AUTO) 8.6 X 10^3 (1.8-7.8); NEUTROPHILS % (AUTO) 72 % (42-75); PLATELET COUNT 304 10^3/uL (130-400); RED CELL DISTRIBUTION WIDTH 14.4 % (10.0-14.5)
[2019-04-05 05:07] LABS: BASOPHILS # (AUTO) 0.1 10^3/uL (0.0-0.1)
[2019-04-05 05:16] LABS: ALBUMIN 4.2 GM/DL (3.2-4.5); BILIRUBIN,TOTAL 0.5 MG/DL (0.1-1.0); CALCIUM 9.8 MG/DL (8.5-10.1); CREATININE SERUM 0.98 MG/DL (0.60-1.30); TOTAL PROTEIN 7.6 GM/DL (6.4-8.2)
--- NOTE | 2019-04-05 07:17 | NUR ---
dr. pelaez notified pt admission
[2019-04-05] MEDS: RT-ADVAIR HFA 115/21 MCG PER PUFF IH SCH ×2 (07:49→19:57)
[2019-04-05] MEDS: CEFEPIME 2,000 MG/SWFI 20 ML IV PUSH IV SCH ×4 (08:15→20:41)
--- NOTE | 2019-04-05 08:56 | Diagnostic Imaging Report ---
INDICATION: Upper respiratory infection. EXAMINATION: PA and lateral chest. FINDINGS: The heart size and pulmonary vascularity are normal. The lungs are clear. There are no effusions or pneumothoraces. IMPRESSION: Negative chest. Dictated by: Dictated on workstation # [id number]
[2019-04-05] MEDS ORDERED: LANS30CA PO (13:42)
--- NOTE | 2019-04-05 16:19 | History & Physical-Hospitalist ---
History of Present Illness HPI/Chief Complaint The patient is a 54-year-old white female who presented to the emergency room last night with a complaint of cough and fever. This had been present for several days but increasing in symptoms complex. She reported neck pain on awakening in the morning. Her temperature at home had gone as high as 103.7. There was a determination in the emergency room at 103.6. Her past medical history was positive for chronic myelocytic leukemia discovered while she was with her son who is now 22 years of age. She underwent treatment following his delivery and ultimately had a bone marrow transplant with her older daughter being the donor. This one well for several years and she then had an early recurrence which was treated with a secondary bone marrow procedure. She has done well since then. She also had a previous splenectomy. Initial CBC showed a 15,000 white count. Chest x-ray was negative for infiltrate. CT scan was done which was negative. Lumbar puncture was negative for white cells. Date Seen 04/05/19 Time Seen by a Provider: 16:22 Attending Physician Collin Buck MD PCP Collin Buck MD Referring Physician Date of Admission April 04, 2019 at 21:48 Home Medications & Allergies Home Medications Reviewed patient Home Medication Reconciliation performed by pharmacy medication reconciliations [employer] technician and/or nursing. Patients Allergies have been reviewed. Allergies Allergies Coded Allergies No Known Drug Allergies (Doepqeyteg03/8/15) Past Vbumjsk-Yuhebd-Jehgau Hx Past Med/Social Hx: Reviewed Nursing Past Med/Soc Hx Patient Social History Alcohol Use: Rarely Uses Number of Drinks Today: Alcohol Beverage of Choice: Wine Recreational Drug Use: No Smoking Status: Never a Smoker 2nd Hand Smoke Exposure: No Recent Foreign Travel: No Contact w/other who traveled: No Recent Hopitalizations: Yes (August) Recent Infectious Disease Expo: No Immunizations Up To Date Tetanus Booster (TDap): Unknown Date of Pneumonia Vaccine: Aug 31, 2018 Date of Influenza Vaccine: Sep 02, 2018 Seasonal Allergies Seasonal Allergies: No Past Medical History Surgeries: Abdominal, Gallbladder, Hysterectomy Respiratory: Asthma, Pneumonia Currently Using CPAP: No Currently Using BIPAP: No Cardiac: High Cholesterol : No Reproductive: No Sexually Transmitted Disease: No Gastrointestinal: Gastroesophageal Reflux Musculoskeletal: Arthritis Endocrine: Hypothyroidsim Cancer: Leukemia Did You Recieve Any Treatments: Yes What Type of Treatment Did You: Chemotherapy, Radiation History of Blood Disorders: No Adverse Reaction to Blood Lan: Yes (high fever) Family History Diabetes mellitus 19 FATHER Hypercholesterolemia 19 FATHER 19 MOTHER G8 SISTER Hypertension Review of Systems Constitutional: see HPI, fever, malaise EENTM: no symptoms reported Respiratory: cough Cardiovascular: no symptoms reported Gastrointestinal: no symptoms reported Genitourinary: no symptoms reported Musculoskeletal: no symptoms reported Skin: no symptoms reported Psychiatric/Neurological: No Symptoms Reported Physical Exam Physical Exam Vital Signs Vital Signs - First Documented 04/04/19 19:36 Temp 102.6 Pulse 121 Resp 24 B/P (MAP) 160/104 (122) Pulse Ox 93 O2 Delivery Room Air Capillary Refill : Less Than 3 Seconds Height, Weight, BMI Height: 5'4.00" Weight: 164lbs. 5.0oz. 74.008651ne; 28.2 BMI Method:Stated General Appearance: No Apparent Distress, WD/WN Eyes: Bilateral Eye Normal Inspection HEENT: PERRL/EOMI, TMs Normal, Normal ENT Inspection, Pharynx Normal Neck: Full Range of Motion, Normal Inspection, Non Tender Respiratory: Chest Non Tender, Lungs Clear, Normal Breath Sounds, No Accessory Muscle Use, No Respiratory Distress Gastrointestinal: Normal Bowel Sounds, No Organomegaly, No Pulsatile Mass, Non Tender, Soft Back: Normal Inspection, No CVA Tenderness, No Vertebral Tenderness Extremity: Normal Capillary Refill, Normal Inspection, Normal Range of Motion, Non Tender, No Calf Tenderness, No Pedal Edema Neurologic/Psychiatric: Alert, Oriented x3, No Motor/Sensory Deficits, Normal Mood/Affect Skin: Normal Color, Warm/Dry Lymphatic: No Adenopathy Results Results/Procedures Labs Patient resulted labs reviewed. Assessment/Plan Admission Diagnosis Febrile illness with cough. 2.past history of myelogenous leukemia with bone marrow transplant and splenectomy. Admission Status: Inpatient Order (span 2 midnights) Reason for Inpatient Admission: Febrile illness in an immune compromised patient. Clinical Quality Measures DVT/VTE Risk/Contraindication: Risk Factor Score Per Nursin RFS Level Per Nursing on Admit: 2=Moderate DECLAN CASE MD April 05, 2019 16:19
[2019-04-05] MEDS: APAP 300 MG/CODEINE 30 MG (TYLENOL #3) TAB PO PRN (20:41)
[2019-04-06] MEDS: NS IV 1000 ML 1,000 ML IV SCH ×4 (01:35→22:03)
[2019-04-06 04:51] VITALS: BP 134/84
[2019-04-06] MEDS: RT-ADVAIR HFA 115/21 MCG PER PUFF IH SCH ×2 (08:19→18:48)
[2019-04-06 08:56] VITALS: BP 167/80
[2019-04-06] MEDS ORDERED: PATIENT MAY USE OWN MED,SINGLE MED PO SCH (09:15)
[2019-04-06] MEDS: CEFEPIME 2,000 MG/SWFI 20 ML IV PUSH IV SCH ×4 (09:27→20:05)
[2019-04-06] MEDS ORDERED: LEVOTHYROXINE 150 MCG (LEVOTHROID) TAB PO NR (11:15)
[2019-04-06] MEDS ORDERED: LEVOTHYROXINE 25 MCG (LEVOTHROID) TAB PO NR (11:15)
--- NOTE | 2019-04-06 11:16 | Progress Note-Hospitalist ---
Subjective HPI/CC On Admission Date Seen by Provider: April 06, 2019 Time Seen by Provider: 09:30 The patient is a 54-year-old white female who presented to the emergency room last night with a complaint of cough and fever. This had been present for several days but increasing in symptoms complex. She reported neck pain on awakening in the morning. Her temperature at home had gone as high as 103.7. There was a determination in the emergency room at 103.6. Her past medical history was positive for chronic myelocytic leukemia discovered while she was with her son who is now 22 years of age. She underwent treatment following his delivery and ultimately had a bone marrow transplant with her older daughter being the donor. This one well for several years and she then had an early recurrence which was treated with a secondary bone marrow procedure. She has done well since then. She also had a previous splenectomy. Initial CBC showed a 15,000 white count. Chest x-ray was negative for infiltrate. CT scan was done which was negative for white cells. Subjective/Events-last exam Patient reports feeling better headache gone only troubled by nonproductive cough. She reported no Reiger's and her MAXIMUM TEMPERATURE was down yesterday evening to 101.8 currently temperature is normal this morning. She's had a minimal amount of sputum production that is been clear without color. She has some mild nasal congestion. She does report exposure to 2 granddaughters the day before her illness had both had runny noses per her report. She denies abdominal pain dysuria or diarrhea. Focused Exam Lactate Level 04/04/19 19:51: Lactic Acid Level 1.94 Objective Exam Vital Signs Vital Signs Date Time Temp Pulse Resp B/P (MAP) Pulse Ox O2 Delivery O2 Flow Rate FiO2 04/06/19 08:56 100.1 99 20 167/80 (109) 92 Room Air Capillary Refill : Less Than 3 Seconds General Appearance: No Apparent Distress, WD/WN HEENT: PERRL/EOMI, TMs Normal, Normal ENT Inspection, Pharynx Normal Neck: Full Range of Motion, Normal Inspection, Non Tender Respiratory: Chest Non Tender, No Accessory Muscle Use, No Respiratory Distress , Other (Mild expiratory wheezing is noted with some rales in the right base which do not clear with inspiration. There was no evidence for egophony) Cardiovascular: Normal Peripheral Pulses, Tachycardia Gastrointestinal: Normal Bowel Sounds, No Organomegaly, No Pulsatile Mass, Non Tender, Soft Back: Normal Inspection, No CVA Tenderness, No Vertebral Tenderness Extremity: Normal Capillary Refill, Normal Inspection, Normal Range of Motion, Non Tender, No Calf Tenderness, No Pedal Edema Neurologic/Psychiatric: Alert, Oriented x3, No Motor/Sensory Deficits, Normal Mood/Affect Skin: Normal Color, Warm/Dry Lymphatic: No Adenopathy Results/Procedures Lab Patient resulted labs reviewed. Assessment/Plan Assessment and Plan Assess & Plan/Chief Complaint A/P 1. Likely viral illness with sepsis not severe. Patient condition is significantly improved. We will obtain nasal swab for influenza. There is secondary reactive airways in individual with mild asthma we'll continue bronchodilator therapy. 2. There is her primary report of possible coag-negative staph from the CSF which is highly likely a contaminant considering her lack of cells and only minimal increase in protein her headache is resolved and so antibiotics for this is not warranted continue to monitor. 3. 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 4. History of splenectomy related to number 3 continue doxycycline for now. Clinical Quality Measures DVT/VTE Risk/Contraindication: Risk Factor Score Per Nursin RFS Level Per Nursing on Admit: 2=Moderate SARAH SADLER MD April 06, 2019 11:16
[2019-04-06 12:50] VITALS: BP 147/78
[2019-04-06] MEDS: ACETAMINOPHEN 325 MG TABLET PO PRN (15:03)
[2019-04-06] MEDS: LANSOPRAZOLE 30 MG CAPSULE PO SCH (15:04)
[2019-04-06 16:16] VITALS: BP 133/77
[2019-04-06] MEDS: DOXYCYCLINE 100 MG (VIBRAMYCIN) TABLET PO SCH (17:09)
[2019-04-06 19:36] VITALS: BP 140/76
[2019-04-06] MEDS: ATORVASTATIN 10 MG (LIPITOR) TABLET PO SCH (20:05)
[2019-04-06] MEDS: APAP 300 MG/CODEINE 30 MG (TYLENOL #3) TAB PO PRN (22:06)
[2019-04-07] VITALS (7 sets, daily range): BP systolic 130–145; BP diastolic 63–84
[2019-04-07] MEDS: NS IV 1000 ML 1,000 ML IV SCH (04:41)
[2019-04-07] MEDS: LEVOTHYROXINE 75 MCG (LEVOTHROID) TABLET PO SCH (06:03)
[2019-04-07] MEDS: LEVOTHYROXINE 100 MCG (LEVOTHROID) TAB PO SCH (06:03)
[2019-04-07] MEDS: LANSOPRAZOLE 30 MG CAPSULE PO SCH (06:03)
[2019-04-07] MEDS: DOXYCYCLINE 100 MG (VIBRAMYCIN) TABLET PO SCH (06:04)
[2019-04-07] MEDS: RT-ADVAIR HFA 115/21 MCG PER PUFF IH SCH ×2 (07:15→19:20)
[2019-04-07] MEDS: CEFEPIME 2,000 MG/SWFI 20 ML IV PUSH IV SCH ×2 (08:37)
--- NOTE | 2019-04-07 08:40 | Progress Note-Hospitalist ---
Subjective HPI/CC On Admission Date Seen by Provider: April 07, 2019 Time Seen by Provider: 08:30 The patient is a 54-year-old white female who presented to the emergency room last night with a complaint of cough and fever. This had been present for several days but increasing in symptoms complex. She reported neck pain on awakening in the morning. Her temperature at home had gone as high as 103.7. There was a determination in the emergency room at 103.6. Her past medical history was positive for chronic myelocytic leukemia discovered while she was with her son who is now 22 years of age. She underwent treatment following his delivery and ultimately had a bone marrow transplant with her older daughter being the donor. This one well for several years and she then had an early recurrence which was treated with a secondary bone marrow procedure. She has done well since then. She also had a previous splenectomy. Initial CBC showed a 15,000 white count. Chest x-ray was negative for infiltrate. CT scan was done which was negative for white cells. Subjective/Events-last exam Shouldn't reports cough productive of yellowish sputum but was able to sleep last night denied Reiger's chills or fever. Focused Exam Lactate Level Objective Exam Vital Signs Vital Signs Date Time Temp Pulse Resp B/P (MAP) Pulse Ox O2 Delivery O2 Flow Rate FiO2 04/08/19 11:11 82 16 141/72 94 Room Air 04/08/19 08:36 97.2 Capillary Refill : Less Than 3 Seconds General Appearance: No Apparent Distress, WD/WN HEENT: PERRL/EOMI, TMs Normal, Normal ENT Inspection, Pharynx Normal Neck: Full Range of Motion, Normal Inspection, Non Tender Respiratory: Chest Non Tender, No Accessory Muscle Use, No Respiratory Distress , Other (Right middle and lower lobe rales with fascicular breath sounds noted elsewhere her chest is clear no wheezing is noted. No egophony is noted.) Cardiovascular: Normal Peripheral Pulses, Tachycardia Gastrointestinal: Normal Bowel Sounds, No Organomegaly, No Pulsatile Mass, Non Tender, Soft Back: Normal Inspection, No CVA Tenderness, No Vertebral Tenderness Extremity: Normal Capillary Refill, Normal Inspection, Normal Range of Motion, Non Tender, No Calf Tenderness, No Pedal Edema Neurologic/Psychiatric: Alert, Oriented x3, No Motor/Sensory Deficits, Normal Mood/Affect Skin: Normal Color, Warm/Dry Lymphatic: No Adenopathy Results/Procedures Lab Patient resulted labs reviewed. Assessment/Plan Assessment and Plan Assess & Plan/Chief Complaint A/P 1. Likely viral illness with sepsis not severe. Patient condition is significantly improved. Swab for influenza was negative. Examination today suggests right lower lobe pneumonia we will obtain chest x-ray but clinically patient is responding will switch to Omnicef 300 mg twice a day There is secondary reactive airways in individual with mild asthma we'll continue bronchodilator therapy. 2. There is her primary report of possible coag-negative staph from the CSF which is highly likely a contaminant considering her lack of cells and only minimal increase in protein her headache is resolved and so antibiotics for this is not warranted continue to monitor. 3. 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 4. History of splenectomy related to number 3. Clinical Quality Measures DVT/VTE Risk/Contraindication: Risk Factor Score Per Nursin RFS Level Per Nursing on Admit: 2=Moderate SARAH SADLER MD April 07, 2019 08:40
[2019-04-07] MEDS: CEFDINIR 300 MG (OMNICEF) CAP PO SCH ×2 (08:58→20:26)
--- NOTE | 2019-04-07 09:34 | Diagnostic Imaging Report ---
Indication: Cough. Time of exam: 9:08 AM Correlation is made with prior study from 04/05/2019. Patient has developed airspace infiltrate in the right lower lobe consistent with pneumonia. Left lung is clear. Pulmonary vascularity is normal. There is no effusion or pneumothorax. Impression: Development of right lower lobe pneumonia when compared to examination 2 days earlier. Dictated by: Dictated on workstation # [id number]
[2019-04-07] MEDS: fentaNYL INJECTION 100 MCG/2 ML AMP IV PRN (10:36)
[2019-04-07] MEDS: IBUPROFEN 800 MG (MOTRIN) TAB PO PRN ×2 (11:48→20:26)
[2019-04-07] MEDS: RT-ALBUTEROL SULF 2.5 MG/3 ML PRE-MIX VIAL INH SCH ×2 (14:36→19:22)
[2019-04-07] MEDS: APAP 300 MG/CODEINE 30 MG (TYLENOL #3) TAB PO PRN (16:48)
[2019-04-07] MEDS: ATORVASTATIN 10 MG (LIPITOR) TABLET PO SCH (20:26)
[2019-04-08 00:50] VITALS: BP 115/76
[2019-04-08] MEDS: RT-ALBUTEROL SULF 2.5 MG/3 ML PRE-MIX VIAL INH SCH ×2 (01:31→09:46)
[2019-04-08 04:29] VITALS: BP 127/86
[2019-04-08] MEDS: LEVOTHYROXINE 100 MCG (LEVOTHROID) TAB PO SCH (06:00)
[2019-04-08] MEDS: LEVOTHYROXINE 75 MCG (LEVOTHROID) TABLET PO SCH (06:00)
[2019-04-08] MEDS: LANSOPRAZOLE 30 MG CAPSULE PO SCH (06:00)
[2019-04-08] MEDS: IBUPROFEN 800 MG (MOTRIN) TAB PO PRN (06:03)
[2019-04-08 08:36] VITALS: BP 141/72
[2019-04-08] MEDS ORDERED: HYDR115S2 PO ×2 (08:41→08:45)
[2019-04-08] MEDS ORDERED: CEFD300C3 PO (08:41)
[2019-04-08] MEDS: CEFDINIR 300 MG (OMNICEF) CAP PO SCH (09:08)
[2019-04-08] MEDS: RT-ADVAIR HFA 115/21 MCG PER PUFF IH SCH (09:46)
[2019-04-08 11:11] VITALS: BP 141/72
--- NOTE | 2019-04-08 16:41 | Discharge Summary-Hospitalist ---
Diagnosis/Chief Complaint Date of Admission April 04, 2019 at 21:48 Date of Discharge April 08, 2019 at 12:04 Discharge Date: April 08, 2019 Admission Diagnosis Febrile illness with cough. 2.past history of myelogenous leukemia with bone marrow transplant and splenectomy. Discharge Summary Discharge Physical Exam Allergies: Coded Allergies: No Known Drug Allergies (Unverified , 10/08/15) Vitals & I&Os Vital Signs Date Time Temp Pulse Resp B/P (MAP) Pulse Ox O2 Delivery O2 Flow Rate FiO2 04/08/19 11:11 82 16 141/72 94 Room Air 04/08/19 08:36 97.2 General Appearance: No Apparent Distress, WD/WN Respiratory: Chest Non Tender, No Accessory Muscle Use, No Respiratory Distress , Other (Right mid and lower lobe rales noted posteriorly with fascicular breath sounds no wheezes noted no evidence respiratory distress.) Cardiovascular: Regular Rate, Rhythm, No Edema, No Gallop, No JVD, No Murmur, Normal Peripheral Pulses Extremity: Normal Capillary Refill, Normal Inspection, Normal Range of Motion, Non Tender, No Calf Tenderness, No Pedal Edema Hospital Course The patient is a 54-year-old white female who presented to the emergency room last night with a complaint of cough and fever. This had been present for several days but increasing in symptoms complex. She reported neck pain on awakening in the morning. Her temperature at home had gone as high as 103.7. There was a determination in the emergency room at 103.6. Her past medical history was positive for chronic myelocytic leukemia discovered while she was with her son who is now 22 years of age. She underwent treatment following his delivery and ultimately had a bone marrow transplant with her older daughter being the donor. This one well for several years and she then had an early recurrence which was treated with a secondary bone marrow procedure. She has done well since then. She also had a previous splenectomy. Initial CBC showed a 15,000 white count. Chest x-ray was negative for infiltrate. CT scan was done which was negative for white cells. Cefepime was initiated on admission with no further Reiger's and temperature the return to normal will not. Time of discharge she been afebrile for 48 hours and then switched to Omnicef 300 mg twice a day 24 hours prior to admission with discontinuance of cefepime. Physical examination did reveal findings compatible for pneumonia and subsequent chest x-ray did reveal right lower lobe infiltrate. White count returned to normal. Patient is discharged to continue another week's course of Omnicef 300 mg twice a day she was warned about antibiotic associated diarrhea/C. difficile and reports no history of past C. difficile. I will have her follow-up in the office in one week. Labs (last 24 hrs) Microbiology 04/04/19 Blood Culture - Preliminary, Resulted No growth 04/04/19 Gram Stain - Final, Complete 04/04/19 CSF Culture - Final, Complete Staphylococcus epidermidis 04/06/19 Influenza Types A,B Antigen (BERNARDINO) - Final, Complete Patient resulted labs reviewed. Discussion & Recommendations Discharge Planning: >30 minutes discharge planning Discharge Home Medications: Active Scripts Active Tussionex Pennkinetic Susp (Hydrocodone/Chlorphen P-Stirex) 115 Ml Yvrose.er.12h 5 Ml PO Q12H PRN 7 Days Cefdinir 300 Mg Capsule 300 Mg PO BID 7 Days Reported Lansoprazole 30 Mg Capsule.dr 30 Mg PO DAILY Albuterol Sulfate 1.25 Mg/3 Ml Vial.neb 1.25 Mg NEB TID PRN Advair 100-50 Diskus (Fluticasone/Salmeterol) 1 Each Blst.w.dev 1 Puff INH BID PRN Formula Tablet ( Vits #93/Iron Fum/FA) 1 Each Tablet 1 Tab PO DAILY [place]-3 Acid Ethyl Esters 1 Gm Capsule 2 Gm PO BID Valacyclovir (Valacyclovir HCl) 1,000 Mg Tablet 1,000 Mg PO DAILY PRN Atorvastatin Calcium 10 Mg Tablet 10 Mg PO DAILY Levothyroxine Sodium 175 Mcg Tablet 175 Mcg PO DAILY Instructions to patient/family Please see electronic discharge instructions given to patient. Clinical Quality Measures DVT/VTE Risk/Contraindication: Risk Factor Score Per Nursin RFS Level Per Nursing on Admit: 2=Moderate Copy Copies To 2: SARAH SADLER MD, MARK D MD April 08, 2019 16:41
== END 2019-04-08 12:04 | disposition home or self-care (01) | DRG 872 ==
LOC: EDUNIT# 19:30 → ER 19:32 → 4TH 21:48
PROVIDERS: ADMIT Internal Medicine; ATTEND Internal Medicine
PROC: 009U3ZX Drainage of Spinal Canal, Percutaneous Approach, Diagnostic (ICD-10-PCS; principal; 2019-04-04)
DX: A41.89 Other specified sepsis (principal); B97.89 Other viral agents as the cause of diseases classified elsewhere; J45.909 Unspecified asthma, uncomplicated; Z94.81 Bone marrow transplant status; C92.10 Chronic myeloid leukemia, BCR/ABL-positive, not having achieved remission; M79.18 Myalgia, other site; E78.00 Pure hypercholesterolemia, unspecified; K21.9 Gastro-esophageal reflux disease without esophagitis; M19.91 Primary osteoarthritis, unspecified site; E03.9 Hypothyroidism, unspecified; K75.81 Nonalcoholic steatohepatitis (NASH); Z90.81 Acquired absence of spleen; Z92.21 Personal history of antineoplastic chemotherapy; Z92.3 Personal history of irradiation; Z87.09 Personal history of other diseases of the respiratory system
CPT/HCPCS: 36415; 62270; 70450; 71045; 71046; 80053; 81000; 82945; 83605; 84157; 85007; 85025; 85027; 85610; 85730; 86618; 86666; 86668; 86757; 87040; 87070; 87077; 87186; 87205; 87430; 87804; 89051; 94640; 94760; 96361; 96365; 96375

== ENCOUNTER 2019-04-15 09:30 | Outpatient (RCR) | payer OTHER, MEDICARE ==
[~2019-04-15 09:30] MED LIST changes: +HYDR115S2 PO
[2019-04-15 10:11] LABS: CHOLESTEROL 340 MG/DL (< 200); HDL CHOLESTEROL 34 MG/DL (40-60)
[2019-04-15 10:16] LABS: TRIGLYCERIDES 1449 MG/DL (<150)
== END 2019-07-14 | disposition home or self-care (01) ==
LOC: LAB 09:30
PROVIDERS: ATTEND Internal Medicine
DX: E88.81 Metabolic syndrome and other insulin resistance (principal); E03.9 Hypothyroidism, unspecified
CPT/HCPCS: 36415; 80061; 83036; 84443

== ENCOUNTER → 2019-08-04 | Outpatient (CLI) | payer OTHER, MEDICARE ==
[2019-08-04 10:32] LABS: ALANINE AMINOTRANSFERASE 88 U/L (0-55); ALBUMIN 4.5 GM/DL (3.2-4.5); ALKALINE PHOSPHATASE 129 U/L (40-136); BILIRUBIN,TOTAL 0.4 MG/DL (0.1-1.0); BUN/CREATININE RATIO 17; CALCIUM 10.3 MG/DL (8.5-10.1); CARBON DIOXIDE 29 MMOL/L (21-32); CHLORIDE 103 MMOL/L (98-107); CHOLESTEROL 318 MG/DL (< 200); CREATININE SERUM 0.96 MG/DL (0.60-1.30); GFR ESTIMATED 60; GLUCOSE 126 MG/DL (70-105); HDL CHOLESTEROL 38 MG/DL (40-60); POTASSIUM 4.2 MMOL/L (3.6-5.0); SODIUM 140 MMOL/L (135-145); TOTAL PROTEIN 8.2 GM/DL (6.4-8.2); TRIGLYCERIDES 910 MG/DL (<150)
[2019-08-04 10:53] LABS: FREE T4 (FREE THYROXINE) 1.12 NG/DL (0.70-1.48)
== END ==
LOC: LAB 09:42
PROVIDERS: ATTEND Internal Medicine Interventional Cardiology
DX: E78.1 Pure hyperglyceridemia (principal); E66.3 Overweight; E78.49 Other hyperlipidemia
CPT/HCPCS: 36415; 80053; 80061; 83036; 84439; 84443; 84480; 86141

== ENCOUNTER → 2019-11-05 | Outpatient (CLI) | payer OTHER, MEDICARE ==
[~2019-11-05] MED LIST changes: -HYDR473S34 PO; +HYDR473S61 PO
--- NOTE | 2019-11-08 08:45 | Diagnostic Imaging Report ---
INDICATION: Screening The current study was also evaluated with a Computer Aided Detection (CAD) system. 3-D Tomographic imaging was also performed. COMPARISON: Made with prior examination 04/15/2018 and 05/20/2017. FINDINGS: There are scattered fibroglandular densities bilaterally. There are a few benign type calcifications. Unchanged benign-appearing nodular density lateral right breast likely intraparenchymal lymph node. There is no new dominant mass, spiculated lesion or suspicious calcification identified. The skin and nipples and axilla are unremarkable. IMPRESSION: Category 2 benign. ACR BI-RADS Category 2: Benign findings. Result letter will be mailed to the patient. Note: At least 10% of breast cancer is not imaged by mammography. Dictated by: Dictated on workstation # [id number]
== END ==
LOC: RAD 14:55
PROVIDERS: ATTEND Internal Medicine
DX: Z12.31 Encounter for screening mammogram for malignant neoplasm of breast (principal)
CPT/HCPCS: 77067

== ENCOUNTER 2020-01-25 12:43 | Emergency (ER) | payer OTHER, MEDICARE ==
[~2020-01-25] VITALS: Ht 157.4 cm; Wt 75.0 kg
[~2020-01-25 12:43] MED LIST changes: -MONT10TA24 PO; +MONT10TA26 PO; -VALA1000 PO; +VALA10007 PO
[2020-01-25] MEDS ORDERED: KETOROLAC 30 MG/ML VIAL IVP STA (13:46)
[2020-01-25] MEDS ORDERED: ACETAMINOPHEN 500 MG TAB (TYLENOL) PO STA (13:46)
[2020-01-25] MEDS ORDERED: LACTATED RINGERS 1,000 ML IV ONE (13:46)
--- NOTE | 2020-01-25 13:48 | ED General ---
General Chief Complaint: Cough/Cold/Flu Symptoms Stated Complaint: FEVER;CHILLS;CHEST CONGESTION;SOA;COUGH;HEADACHE Nursing Triage Note: AMB TO ROOM WITH COUGH CONGESTION SINCE 2AM TODAY AND FEELING SOA. WITH NAUSEA. JUNIE TESTED POS FOR FLU A CONCERN BECAUSE SHE HAS HAD BONE MARROW TRANSPLANT Nursing Sepsis Screen: Possible Sepsis Risk Source of Information: Patient Exam Limitations: No Limitations History of Present Illness Date Seen by Provider: Jan 25, 2020 Time Seen by Provider: 13:36 Initial Comments Here with report of fevers, chills, congestion, body aches and headache and about 2 AM. She has had contact with patient with flu a and that close family. 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 Reports that she is currently in remission and not on antibiotics but that she has difficulties with illnesses and recovery. Has had nausea but no vomiting. Denies dysuria or diarrhea. Timing/Duration: 12 Hours Severity: Moderate Associated Systoms: No Chest Pain; Cough, Fever/Chills, Headaches, Nausea/Vomiting, Shortness of Air, Weakness Allergies and Home Medications Allergies Coded Allergies: No Known Drug Allergies (Unverified , 10/08/15) Home Medications Albuterol Sulfate 1.25 Mg/3 Ml Vial.neb, 1.25 MG NEB TID PRN for WHEEZING, (Reported) Atorvastatin Calcium 10 Mg Tablet, 10 MG PO DAILY, (Reported) Cefdinir 300 Mg Capsule, 300 MG PO BID Prescribed by: SARAH SADLER on 04/08/19 0841 Fluticasone/Salmeterol 1 Each Blst.w.dev, 1 PUFF INH BID PRN for WHEEZING, (Reported) Hydrocodone/Chlorphen P-Stirex 115 Ml Yvrose.er.12h, 5 ML PO Q12H PRN for prn Prescribed by: SARAH SADLER on 04/08/19 0845 Lansoprazole 30 Mg Capsule.dr, 30 MG PO DAILY, (Reported) Levothyroxine Sodium 175 Mcg Tablet, 175 MCG PO DAILY, (Reported) [place]-3 Acid Ethyl Esters 1 Gm Capsule, 2 GM PO BID, (Reported) Vits #93/Iron Fum/FA 1 Each Tablet, 1 TAB PO DAILY, (Reported) Valacyclovir HCl 1,000 Mg Tablet, 1,000 MG PO DAILY PRN for FLARE UP, (Reported) Patient Home Medication List Home Medication List Reviewed: Yes Review of Systems Review of Systems Constitutional: see HPI EENTM: nose congestion, throat pain Respiratory: cough, wheezing Cardiovascular: no symptoms reported Gastrointestinal: see HPI; No diarrhea Genitourinary: no symptoms reported Musculoskeletal: no symptoms reported All Other Systems Reviewed Negative Unless Noted: Yes Past Koahqhx-Vsyvyy-Kfmjms Hx Past Med/Social Hx: Reviewed Nursing Past Med/Soc Hx Patient Social History Alcohol Use: Denies Use Number of Drinks Today: Alcohol Beverage of Choice: Wine Recreational Drug Use: No Smoking Status: Never a Smoker 2nd Hand Smoke Exposure: No Recent Foreign Travel: No Contact w/Someone Who Travel: No Recent Infectious Disease Expo: No Recent Hopitalizations: Yes (August) Immunizations Up To Date Tetanus Booster (TDap): Unknown Date of Pneumonia Vaccine: Aug 31, 2018 Date of Influenza Vaccine: Sep 02, 2018 Seasonal Allergies Seasonal Allergies: No Past Medical History Surgeries: Yes (bone marrow transplant, splenectomy) Abdominal, Gallbladder, Hysterectomy Respiratory: Yes (BRONCHITIS) Pneumonia Currently Using CPAP: No Currently Using BIPAP: No Cardiac: Yes High Cholesterol Neurological: No Reproductive Disorders: No Sexually Transmitted Disease: No Genitourinary: No Gastrointestinal: Yes Gastroesophageal Reflux Musculoskeletal: No Arthritis Endocrine: Yes Hypothyroidsim HEENT: No Cancer: Yes Leukemia Did You Recieve Any Treatments: Yes What Type of Treatment Did You: Chemotherapy, Radiation Psychosocial: No Integumentary: No Blood Disorders: No Adverse Reaction/Blood Tranf: Yes (high fever) Family Medical History Reviewed Nursing Family Hx Diabetes mellitus 19 FATHER Hypercholesterolemia 19 FATHER 19 MOTHER G8 SISTER Hypertension Physical Exam-Suspected Sepsis Physical Exam Vital Signs Vital Signs - First Documented 01/25/20 12:43 Temp 38.9 Pulse 120 Resp 18 B/P (MAP) 164/101 (122) Pulse Ox 96 Capillary Refill : Less Than 3 Seconds Blood Pressure Mean: 122 Height, Weight, BMI Height: 5'4.00" Weight: 164lbs. 5.0oz. 74.179001ch; 30.00 BMI Method:Stated General Appearance: No Apparent Distress, WD/WN HEENT: PERRL/EOMI, Pharynx Normal Neck: Non Tender, Supple Respiratory: No Respiratory Distress, Wheezing Cardiovascular: No Murmur, Tachycardia Gastrointestinal: Non Tender, Soft Back: Normal Inspection, No CVA Tenderness, No Vertebral Tenderness Extremity: Normal Range of Motion, Non Tender Neurologic/Psychiatric: Alert, Oriented x3 Skin: normal color, warm/dry; No ulcerations Focused Exam Lactate Level 01/25/20 14:01: Lactic Acid Level 1.49 Lactic Acid Level Laboratory Tests Test 01/25/20 14:01 Lactic Acid Level 1.49 MMOL/L (0.50-2.00) Progress/Results/Core Measures Suspected Sepsis Recent Fever Within 48 Hours: Yes Infection Criteria Present: Suspected New Infection New/Unexplained Altered Menta: No Sepsis Screen: Possible Sepsis Risk SIRS Temperature: Pulse: 120 Respiratory Rate: 18 Laboratory Tests 01/25/20 14:01: White Blood Count 10.1 Blood Pressure 164 /101 Mean: 122 01/25/20 14:01: Lactic Acid Level 1.49 Laboratory Tests 01/25/20 14:01: Creatinine 1.06, INR Comment 1.0, Platelet Count 516H, Total Bilirubin 0.4 Results/Orders Lab Results Laboratory Tests Test 01/25/20 14:01 01/25/20 14:13 Range/Units White Blood Count 10.1 4.3-11.0 10^3/uL Red Blood Count 4.52 4.35-5.85 10^6/uL Hemoglobin 13.5 11.5-16.0 G/DL Hematocrit 41 35-52 % Mean Corpuscular Volume 91 80-99 FL Mean Corpuscular Hemoglobin 30 25-34 PG Mean Corpuscular Hemoglobin Concent 33 32-36 G/DL Red Cell Distribution Width 14.8 H 10.0-14.5 % Platelet Count 516 H 130-400 10^3/uL Mean Platelet Volume 9.8 7.4-10.4 FL Neutrophils (%) (Auto) 66 42-75 % Lymphocytes (%) (Auto) 21 12-44 % Monocytes (%) (Auto) 11 0-12 % Eosinophils (%) (Auto) 1 0-10 % Basophils (%) (Auto) 1 0-10 % Neutrophils # (Auto) 6.7 1.8-7.8 X 10^3 Lymphocytes # (Auto) 2.2 1.0-4.0 X 10^3 Monocytes # (Auto) 1.1 H 0.0-1.0 X 10^3 Eosinophils # (Auto) 0.1 0.0-0.3 10^3/uL Basophils # (Auto) 0.1 0.0-0.1 10^3/uL Neutrophils % (Manual) 70 % Lymphocytes % (Manual) 15 % Monocytes % (Manual) 14 % Eosinophils % (Manual) 1 % Blood Morphology Comment NORMAL Prothrombin Time 13.1 12.2-14.7 SEC INR Comment 1.0 0.8-1.4 Activated Partial Thromboplast Time 27 24-35 SEC Sodium Level 137 135-145 MMOL/L Potassium Level 3.7 3.6-5.0 MMOL/L Chloride Level 101 98-107 MMOL/L Carbon Dioxide Level 25 21-32 MMOL/L Anion Gap 11 5-14 MMOL/L Blood Urea Nitrogen 14 7-18 MG/DL Creatinine 1.06 0.60-1.30 MG/DL Estimat Glomerular Filtration Rate 54 BUN/Creatinine Ratio 13 Glucose Level 101 70-105 MG/DL Lactic Acid Level 1.49 0.50-2.00 MMOL/L Calcium Level 9.8 8.5-10.1 MG/DL Corrected Calcium 9.4 8.5-10.1 MG/DL Total Bilirubin 0.4 0.1-1.0 MG/DL Aspartate Amino Transf (AST/SGOT) 328 H 5-34 U/L Alanine Aminotransferase (ALT/SGPT) 196 H 0-55 U/L Alkaline Phosphatase 76 40-136 U/L Total Protein 7.8 6.4-8.2 GM/DL Albumin 4.5 3.2-4.5 GM/DL Urine Color YELLOW Urine Clarity CLEAR Urine pH 8.0 5-9 Urine Specific Romance 1.020 1.016-1.022 Urine Protein 2+ H NEGATIVE Urine Glucose (UA) NEGATIVE NEGATIVE Urine Ketones NEGATIVE NEGATIVE Urine Nitrite NEGATIVE NEGATIVE Urine Bilirubin NEGATIVE NEGATIVE Urine Urobilinogen 0.2 < = 1.0 MG/DL Urine Leukocyte Esterase NEGATIVE NEGATIVE Urine RBC (Auto) NEGATIVE NEGATIVE Urine RBC NONE /HPF Urine WBC RARE /HPF Urine Squamous Epithelial Cells 0-2 /HPF Urine Crystals NONE /LPF Urine Bacteria NEGATIVE /HPF Urine Casts NONE /LPF Urine Mucus NEGATIVE /LPF Urine Culture Indicated NO Micro Results Microbiology 01/25/20 Influenza Types A,B Antigen (BRENARDINO) - Final, Complete My Orders Orders - LOR HERNDON MD Cbc With Automated Diff (01/25/20 13:46) Comprehensive Metabolic Panel (01/25/20 13:46) Blood Culture (01/25/20 13:46) Sputum Culture (01/25/20 13:46) Urinalysis (01/25/20 13:46) Urine Culture (01/25/20 13:46) Protime With Inr (01/25/20 13:46) Partial Thromboplastin Time (01/25/20 13:46) Ed Iv/Invasive Line Start (01/25/20 13:46) Ed Iv/Invasive Line Start (01/25/20 13:46) Vital Signs Adult Sepsis Patie Q15M (01/25/20 13:46) O2 (01/25/20 13:46) Remove Rings In Anticipation O (01/25/20 13:46) Lactic Acid Analyzer (01/25/20 13:46) Acetaminophen Tablet (Tylenol Tablet) (01/25/20 13:46) Ketorolac Injection (Toradol Injection) (01/25/20 13:46) Lactated Ringers (Lr 1000 Ml Iv Solution (01/25/20 13:46) Manual Differential (01/25/20 14:01) Medications Given in ED Current Medications Medications Dose Ordered Sig/Dahlia Route Start Time Stop Time Status Last Admin Dose Admin Lactated Ringer's 1,000 ml @ 0 mls/hr Q0M ONCE IV 01/25/20 13:46 01/25/20 13:47 DC 01/25/20 14:25 1,000 MLS/HR Vital Signs/I&O 01/25/20 12:43 Temp 38.9 Pulse 120 Resp 18 B/P (MAP) 164/101 (122) Pulse Ox 96 Capillary Refill : Less Than 3 Seconds Blood Pressure Mean: 122 Progress Note : Progress Note Seen and evaluated. IV, labs, blood cultures, UA, chest x-ray, lactic acid and influenza screen ordered. LR 1 L bolus. Toradol 30 mg IV. Acetaminophen 1 g by mouth. Monitor patient. 1540: Heart rate down to that at 100. Patient feeling a little better. Labs and x-ray reviewed with no significant findings. Flu is negative but given her recent exposure I will go ahead and treat. Discharged home with return precautions. Patient verbalize understanding instructions and agreement with plan. Diagnostic Imaging Diagonstic Imaging: Xray Plain Films/CT/US/NM/MRI: chest Comments [facility], [facility]. [place], [place] NAME: PUJA [facility] REC#: [id number] PT STATUS: REG ER : 1965 PHYSICIAN: ANGELITO LOPEZ APRN ADMIT DATE: 01/25/20/ER Signed Date of Exam:01/25/20 CHEST PA/LAT (2 VIEW) CHEST PA/LAT (2 VIEW) Indication: Fever and cough Comparison: 04/07/2019 Findings: No pulmonary mass or consolidation. No pleural effusion or pneumothorax. Normal heart size and mediastinal contours. Impression: No acute cardiopulmonary process. Dictated by: Dictated on workstation # [id number] Dict: 01/25/20 1513 Trans: 01/25/20 151 [facility] [id number] Interpreted by: LOTTIE TOMPKINS MD Electronically signed by: LOTTIE TOMPKINS MD 01/25/20 1514 Departure Impression Primary Impression: Influenza-like symptoms Additional Impression: Elevated liver enzymes Disposition: 01 HOME, SELF-CARE Condition: Stable Departure-Patient Inst. Decision time for Depature: 15:43 Referrals: SARAH SADLER MD (PCP/Family) Primary Care Physician Patient Instructions: Fever, Adult (DC), Flu, Adult (DC), Liver Function Test Add. Discharge Instructions: All discharge instructions reviewed with patient and/or family. Voiced understanding. Drink plenty of fluids and get plenty or rest. You may take ibuprofen 600 mg every 8 hours as needed for fever or pain. You may take Tylenol/acetaminophen 650 mg (2 of the regular strength tablets) every 8 hours as needed for pain or fever. Follow-up with your Dr. later this week or early next week for recheck and further evaluation. Your liver enzymes are still elevated as in the past. You need to discuss this with their doctor as well. Return for worse pain, weakness, fever, vomiting, breathing problems or other concerns as needed. Scripts Oseltamivir Phosphate (Oseltamivir Phosphate) 75 Mg Capsule 75 MG PO BID for 5 Days, #10 CAP 0 Refills Prov: LOR HERNDON MD 01/25/20 Copy Copies To 1: SARAH SADLER MD, TIMOTHY D MD Jan 25, 2020 13:48
[2020-01-25 14:13] LABS: BASOPHILS # (AUTO) 0.1 10^3/uL (0.0-0.1); BASOPHILS % (AUTO) 1 % (0-10); EOSINOPHILS # (AUTO) 0.1 10^3/uL (0.0-0.3); EOSINOPHILS % (AUTO) 1 % (0-10); HEMATOCRIT 41 % (35-52); HEMOGLOBIN 13.5 G/DL (11.5-16.0); LYMPHOCYTES # (AUTO) 2.2 X 10^3 (1.0-4.0); LYMPHOCYTES % (AUTO) 21 % (12-44); MEAN CORPUSCULAR HEMOGLOBIN 30 PG (25-34); MEAN CORPUSCULAR HGB CONC 33 G/DL (32-36); MEAN CORPUSCULAR VOLUME 91 FL (80-99); MEAN PLATELET VOLUME 9.8 FL (7.4-10.4); MONOCYTES # (AUTO) 1.1 X 10^3 (0.0-1.0); MONOCYTES % (AUTO) 11 % (0-12); NEUTROPHILS # (AUTO) 6.7 X 10^3 (1.8-7.8); NEUTROPHILS % (AUTO) 66 % (42-75); PLATELET COUNT 516 10^3/uL (130-400); RED CELL DISTRIBUTION WIDTH 14.8 % (10.0-14.5); WHITE BLOOD COUNT 10.1 10^3/uL (4.3-11.0)
[2020-01-25 14:19] LABS: BILIRUBIN,URINE NEGATIVE (NEGATIVE); CLARITY,URINE CLEAR; COLOR,URINE YELLOW; GLUCOSE, URINE (UA) NEGATIVE (NEGATIVE); KETONES,URINE NEGATIVE (NEGATIVE); LEUKOCYTE ESTERASE ,URINE NEGATIVE (NEGATIVE); NITRITE,URINE NEGATIVE (NEGATIVE); PROTEIN,URINE 2+ (NEGATIVE)
[2020-01-25 14:23] LABS: PROTHROMBIN TIME PATIENT 13.1 SEC (12.2-14.7)
[2020-01-25 14:30] LABS: ALBUMIN 4.5 GM/DL (3.2-4.5); BILIRUBIN,TOTAL 0.4 MG/DL (0.1-1.0); CALCIUM 9.8 MG/DL (8.5-10.1); CREATININE SERUM 1.06 MG/DL (0.60-1.30); POTASSIUM 3.7 MMOL/L (3.6-5.0); TOTAL PROTEIN 7.8 GM/DL (6.4-8.2)
[2020-01-25 14:36] LABS: EOSINOPHILS % (MANUAL) 1 %; LYMPHOCYTES % (MANUAL) 15 %; MONOCYTES % (MANUAL) 14 %; NEUTROPHILS % (MANUAL) 70 %; RBC MORPH NORMAL
[2020-01-25 14:41] LABS: BACTERIA,URINE NEGATIVE /HPF; SQUAMOUS EPITHELIAL CELL,UR 0-2 /HPF; WBC,URINE RARE /HPF
--- NOTE | 2020-01-25 15:15 | Diagnostic Imaging Report ---
CHEST PA/LAT (2 VIEW) Indication: Fever and cough Comparison: 04/07/2019 Findings: No pulmonary mass or consolidation. No pleural effusion or pneumothorax. Normal heart size and mediastinal contours. Impression: No acute cardiopulmonary process. Dictated by: Dictated on workstation # [id number]
[2020-01-25] MEDS ORDERED: OSEL75CA15 PO (15:46)
[2020-01-25 16:04] VITALS: BP 116/71
== END 2020-01-25 16:09 | disposition home or self-care (01) ==
LOC: EDUNIT# 12:43 → ER 12:44
DX: R09.89 Other specified symptoms and signs involving the circulatory and respiratory systems (principal); R74.8 Abnormal levels of other serum enzymes; E78.00 Pure hypercholesterolemia, unspecified; K21.9 Gastro-esophageal reflux disease without esophagitis; E03.9 Hypothyroidism, unspecified; Z85.6 Personal history of leukemia; Z94.81 Bone marrow transplant status; Z79.51 Long term (current) use of inhaled steroids; Z82.49 Family history of ischemic heart disease and other diseases of the circulatory system
CPT/HCPCS: 36415; 71046; 80053; 81000; 83605; 85007; 85027; 85610; 85730; 87040; 87077; 87088; 87804; 96361; 96374

== ENCOUNTER 2020-05-14 02:04 | Day surgery (SDC) | payer OTHER, MEDICARE ==
[2020-05-14] VITALS (14 sets, daily range): BP systolic 106–135; BP diastolic 59–89
[~2020-05-14] VITALS: Ht 157 cm; Wt 76.6 kg
[~2020-05-14 02:04] MED LIST changes: +OSEL75CA15 PO
[2020-05-14] MEDS ORDERED: FENO134C (02:17)
[2020-05-14] MEDS ORDERED: ICOS1CAP (02:17)
--- OUTSIDE RECORDS SUMMARY | 2020-05-14 02:19 | XMS REPORT | Continuity of Care Document ---
Demographics Preferred Language Unknown Marital Status Unknown Advent Affiliation Unknown Race Unknown Ethnic Group Unknown Author Organization Unknown Address Unknown Phone Unavailable Allergies Active Description Code Type Severity Reaction Onset Reported/Identified Relationship to Patient Clinical Status Yes CODEINE [id number] DRUG N/A N/A Yes NO KNOWN DRUG ALLERGIES UNKNOWN NO KNOWN DRUG ALLERG Yes NO KNOWN DRUG ALLERGIES UNKNOWN UNKNOWN Yes No Known Drug Allergies [id number] Drug Allergy Unknown N/A 10/08/2015 Medications There is no data. 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 10/11/2015 JESSA LOOMIS MALA Ot E03.9 HYPOTHYROIDISM, UNSPECIFIED 10/11/2015 JESSA LOOMIS MALA Ot E78.5 HYPERLIPIDEMIA, UNSPECIFIED 10/11/2015 JESSA LOOMIS MALA Ot F32.9 MAJOR DEPRESSIVE DISORDER, SINGLE EPISOD 10/11/2015 JESSA LOOMIS MALA Ot R50.9 FEVER, UNSPECIFIED 10/11/2015 JESSA LOOMIS MALA Ot 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 02/22/2016 NIVIA PENA MD Ot R10.1 1 02/22/2016 NIVIA PENA MD Ot R74.0 03/04/2016 NIVIA PENA MD Ot R10.1 1 03/04/2016 NIVIA PENA MD Ot R74.0 01/08/2017 CECIL HERNANDEZ Ot L03.811 CELLULITIS OF HEAD [ANY PART, EXCEPT FAC 01/08/2017 NIVIA PENA MD Ot R10.1 1 RIGHT UPPER QUADRANT PAIN 01/08/2017 NIVIA PENA MD Ot R74.0 NONSPEC ELEV OF LEVELS OF TRANSAMNS LA 01/15/2017 NIVIA PENA MD Ot R10.1 1 RIGHT UPPER QUADRANT PAIN 01/15/2017 NIVIA PENA MD Ot R74.0 NONSPEC ELEV OF LEVELS OF TRANSAMNS LA 07/29/2017 NIVIA PENA MD Ot R10.1 1 RIGHT UPPER QUADRANT PAIN 07/29/2017 BECKY STOREY, NIVIA Feliz Ot R74.0 NONSPEC ELEV OF LEVELS OF TRANSAMNS LA 07/31/2017 MALA PEREZ DO Ot E04.1 NONTOXIC SINGLE THYROID NODULE 08/14/2017 MALA PEREZ DO Ot E04.1 NONTOXIC SINGLE THYROID NODULE 10/16/2017 Mala Perez W 272.0 PURE HYPERCHOLESTEROLEMIA 10/16/2017 Mala Perez W 794.8 NONSPECIFIC ABNORMAL RESULTS OF FUNCTION STUDY OF LIVER 10/16/2017 Charity Perezi W E78.0 PURE HYPERCHOLESTEROLEMIA 10/16/2017 Mala Perez W R94.5 ABNORMAL RESULTS OF LIVER FUNCTION STUDIES 10/16/2017 Charity Perezi W 272.0 PURE HYPERCHOLESTEROLEMIA 10/16/2017 Charity Perezi W 794.8 NONSPECIFIC ABNORMAL RESULTS OF FUNCTION STUDY OF LIVER 10/16/2017 Charity Perezi W E78.0 PURE HYPERCHOLESTEROLEMIA 10/16/2017 Mala Perez W R94.5 ABNORMAL RESULTS OF LIVER FUNCTION STUDIES 10/16/2017 Charity Perezi W 272.0 PURE HYPERCHOLESTEROLEMIA 10/16/2017 Charity Perezi W 794.8 NONSPECIFIC ABNORMAL RESULTS OF FUNCTION STUDY OF LIVER 10/16/2017 Jessa, Mala W E78.0 PURE HYPERCHOLESTEROLEMIA 10/16/2017 Charity Perezi W R94.5 ABNORMAL RESULTS OF LIVER FUNCTION STUDIES 10/16/2017 Charity Perezi W 272.0 PURE HYPERCHOLESTEROLEMIA 10/16/2017 Charity Perezi W 794.8 NONSPECIFIC ABNORMAL RESULTS OF FUNCTION STUDY OF LIVER 10/16/2017 Charity Perezi W E78.0 PURE HYPERCHOLESTEROLEMIA 10/16/2017 Mala Perez W R94.5 ABNORMAL RESULTS OF LIVER FUNCTION STUDIES 10/16/2017 Charity Perezi W 272.0 PURE HYPERCHOLESTEROLEMIA 10/16/2017 Jessa Mala W 794.8 NONSPECIFIC ABNORMAL RESULTS OF FUNCTION STUDY OF LIVER 10/16/2017 Jessa Mala W E78.0 PURE HYPERCHOLESTEROLEMIA 10/16/2017 Charity Perezi W R94.5 ABNORMAL RESULTS OF LIVER FUNCTION STUDIES 10/16/2017 W 272.0 PURE HYPERCHOLESTEROLEMIA 10/16/2017 W 794.8 NONS PECIFIC ABNORMAL RESULTS OF FUNCTION STUDY OF LIVER 10/16/2017 W E78.0 PURE HYPERCHOLESTEROLEMIA 10/16/2017 W R94.5 ABNO RMAL RESULTS OF LIVER FUNCTION STUDIES 08/07/2018 PEREZ DO, MALA Ot 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, UNSPECIFIED, 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 08/07/2018 PEREZ DO, MALA Ot D72.82 3 LEUKEMOID REACTION 08/07/2018 PEREZ DO, MALA Ot E03.9 HYPOTHYROIDISM, UNSPECIFIED 08/07/2018 PEREZ DO, MALA Ot E78.00 PURE HYPERCHOLESTEROLEMIA, UNSPECIFIED 08/07/2018 PEREZ DO, MALA Ot J20.9 ACUTE BRONCHITIS, UNSPECIFIED 08/07/2018 PEREZ DO, MALA Ot K21.9 GASTRO-ESOPHAGEAL REFLUX DISEASE WITHOUT 08/07/2018 PEREZ DO, MALA Ot R06.2 WHEEZING 08/07/2018 PEREZ DO, MALA Ot R50.9 FEVER, UNSPECIFIED 08/07/2018 PEREZ DO, MALA Ot R74.8 ABNORMAL LEVELS OF OTHER SERUM ENZYMES 08/07/2018 PEREZ DO, MALA Ot R80.9 PROTEINURIA, UNSPECIFIED 08/07/2018 PEREZ DO, MALA Ot Z92.21 PERSONAL HISTORY OF ANTINEOPLASTIC CHEMO 08/07/2018 JESSA LOOMIS MALA Ot Z92.3 PERSONAL HISTORY OF IRRADIATION 10/09/2018 PEREZ DO, MALA Ot C95.91 LEUKEMIA, UNSPECIFIED, IN REMISSION 10/09/2018 PEREZ DO, MALA Ot D72.82 3 LEUKEMOID REACTION 10/09/2018 PEREZ DO, MALA Ot E03.9 HYPOTHYROIDISM, UNSPECIFIED 10/09/2018 PEREZ DO, MALA Ot E78.00 PURE HYPERCHOLESTEROLEMIA, UNSPECIFIED 10/09/2018 PEREZ DO, MALA Ot F51.01 PRIMARY INSOMNIA 10/09/2018 PEREZ DO, MALA Ot J18.1 LOBAR PNEUMONIA, UNSPECIFIED ORGANISM 10/09/2018 PEREZ DO, MALA Ot J20.9 ACUTE BRONCHITIS, UNSPECIFIED 10/09/2018 PEREZ DO, MALA Ot K21.9 GASTRO-ESOPHAGEAL REFLUX DISEASE WITHOUT 10/09/2018 PEREZ DO, MALA Ot K59.01 SLOW TRANSIT CONSTIPATION 10/09/2018 PEREZ DO, MALA Ot K75.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 (RICHARD) 10/09/2018 PEREZ DO, MALA Ot M19.91 PRIMARY OSTEOARTHRITIS, UNSPECIFIED SITE 10/09/2018 MALA PEREZ DO Ot R06.2 WHEEZING 10/09/2018 MALA PEREZ DO Ot R94.5 ABNORMAL RESULTS OF LIVER FUNCTION STUDI 10/09/2018 MALA PEREZ DO Ot T38.0X 5A ADVERSE EFFECT OF GLUCOCORT/SYNTH ANALOG 10/09/2018 MALA PEREZ DO Ot Z92.21 PERSONAL HISTORY OF ANTINEOPLASTIC CHEMO 10/09/2018 MALA PEREZ DO Ot Z92.3 PERSONAL HISTORY OF IRRADIATION 10/09/2018 MALA PEREZ DO Ot 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 10/10/2018 MALA PEREZ DO Ot C95.91 LEUKEMIA, UNSPECIFIED, IN REMISSION 10/10/2018 MALA PEREZ DO Ot D72.82 3 LEUKEMOID REACTION 10/10/2018 MALA PEREZ DO Ot E03.9 HYPOTHYROIDISM, UNSPECIFIED 10/10/2018 CHARITY PEREZ DOI Ot E78.00 PURE HYPERCHOLESTEROLEMIA, UNSPECIFIED 10/10/2018 MALA PEREZ DO Ot F51.01 PRIMARY INSOMNIA 10/10/2018 MALA PEREZ DO Ot J18.1 LOBAR PNEUMONIA, UNSPECIFIED ORGANISM 10/10/2018 MALA PEREZ DO Ot J20.9 ACUTE BRONCHITIS, UNSPECIFIED 10/10/2018 MALA PEREZ DO Ot K21.9 GASTRO-ESOPHAGEAL REFLUX DISEASE WITHOUT 10/10/2018 CHARITY PEREZ DOI Ot K59.01 SLOW TRANSIT CONSTIPATION 10/10/2018 MALA PEREZ DO Ot K75.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 (RICHARD) 10/10/2018 MALA PEREZ DO Ot M19.91 PRIMARY OSTEOARTHRITIS, UNSPECIFIED SITE 10/10/2018 MALA PEREZ DO Ot R06.2 WHEEZING 10/10/2018 MALA PEREZ DO Ot R74.8 ABNORMAL LEVELS OF OTHER SERUM ENZYMES 10/10/2018 MALA PEREZ DO Ot R94.5 ABNORMAL RESULTS OF LIVER FUNCTION STUDI 10/10/2018 MALA PEREZ DO Ot T38.0X 5A ADVERSE EFFECT OF GLUCOCORT/SYNTH ANALOG 10/10/2018 MALA PEREZ DO Ot Z92.21 PERSONAL HISTORY OF ANTINEOPLASTIC CHEMO 10/10/2018 MALA PEREZ DO Ot Z92.3 PERSONAL HISTORY OF IRRADIATION 10/10/2018 MALA PEREZ DO Ot 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 10/13/2018 JESSA LOOMIS MALA Ot C95.91 LEUKEMIA, UNSPECIFIED, IN REMISSION 10/13/2018 JESSA LOOMIS MALA Ot D72.82 3 LEUKEMOID REACTION 10/13/2018 JESSA LOOMIS MALA Ot E03.9 HYPOTHYROIDISM, UNSPECIFIED 10/13/2018 JESSA LOOMIS MALA Ot E78.00 PURE HYPERCHOLESTEROLEMIA, UNSPECIFIED 10/13/2018 JESSA LOOMIS MALA Ot F51.01 PRIMARY INSOMNIA 10/13/2018 JESSA LOOMIS MALA Ot J18.1 LOBAR PNEUMONIA, UNSPECIFIED ORGANISM 10/13/2018 JESSA LOOMIS MALA Ot J20.9 ACUTE BRONCHITIS, UNSPECIFIED 10/13/2018 CHARITY PEREZ DOI Ot K21.9 GASTRO-ESOPHAGEAL REFLUX DISEASE WITHOUT 10/13/2018 JESSA LOOMIS MALA Ot K59.01 SLOW TRANSIT CONSTIPATION 10/13/2018 JESSA LOOMIS MALA Ot K75.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 (RICHARD) 10/13/2018 CHARITY PEREZ DOI Ot M19.91 PRIMARY OSTEOARTHRITIS, UNSPECIFIED SITE 10/13/2018 CHARITY PEREZ DOI Ot R06.2 WHEEZING 10/13/2018 MALA PEREZ DO Ot R94.5 ABNORMAL RESULTS OF LIVER FUNCTION STUDI 10/13/2018 MALA PEREZ DO Ot T38.0X 5A ADVERSE EFFECT OF GLUCOCORT/SYNTH ANALOG 10/13/2018 MALA PEREZ DO Ot Z92.21 PERSONAL HISTORY OF ANTINEOPLASTIC CHEMO 10/13/2018 MALA PEREZ DO Ot Z92.3 PERSONAL HISTORY OF IRRADIATION 10/13/2018 MALA PEREZ DO Ot 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 10/13/2018 MALA PEREZ DO Ot C95.91 LEUKEMIA, UNSPECIFIED, IN REMISSION 10/13/2018 CHARITY PEREZ DOI Ot D72.82 3 LEUKEMOID REACTION 10/13/2018 CHARITY PEREZ DOI Ot E03.9 HYPOTHYROIDISM, UNSPECIFIED 10/13/2018 JESSA LOOMIS MALA Ot E78.00 PURE HYPERCHOLESTEROLEMIA, UNSPECIFIED 10/13/2018 JESSA LOOMIS MALA Ot F51.01 PRIMARY INSOMNIA 10/13/2018 JESSA LOOMIS MALA Ot J18.1 LOBAR PNEUMONIA, UNSPECIFIED ORGANISM 10/13/2018 JESSA LOOMIS MALA Ot J20.9 ACUTE BRONCHITIS, UNSPECIFIED 10/13/2018 CHARITY PEREZ DOI Ot K21.9 GASTRO-ESOPHAGEAL REFLUX DISEASE WITHOUT 10/13/2018 CHARITY PEREZ DOI Ot K59.01 SLOW TRANSIT CONSTIPATION 10/13/2018 JESSA LOOMIS MALA Ot K75.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 (RICHARD) 10/13/2018 CHARITY PEREZ DOI Ot M19.91 PRIMARY OSTEOARTHRITIS, UNSPECIFIED SITE 10/13/2018 JESSA LOOMIS MALA Ot R06.2 WHEEZING 10/13/2018 JESSA LOOMIS MALA Ot R94.5 ABNORMAL RESULTS OF LIVER FUNCTION STUDI 10/13/2018 MALA PEREZ DO Ot T38.0X 5A ADVERSE EFFECT OF GLUCOCORT/SYNTH ANALOG 10/13/2018 CHARITY PEREZ DOI Ot Z92.21 PERSONAL HISTORY OF ANTINEOPLASTIC CHEMO 10/13/2018 CHARITY PEREZ DOI Ot Z92.3 PERSONAL HISTORY OF IRRADIATION 10/13/2018 CHARITY PEREZ DOI Ot 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 10/13/2018 CHARITY PEREZ DOI Ot C95.91 LEUKEMIA, UNSPECIFIED, IN REMISSION 10/13/2018 JESSA LOOMIS MALA Ot D72.82 3 LEUKEMOID REACTION 10/13/2018 CHARITY PEREZ DOI Ot E03.9 HYPOTHYROIDISM, UNSPECIFIED 10/13/2018 JESSA LOOMIS MALA Ot E78.00 PURE HYPERCHOLESTEROLEMIA, UNSPECIFIED 10/13/2018 JESSA LOOMIS MALA Ot F51.01 PRIMARY INSOMNIA 10/13/2018 CHARITY PEREZ DOI Ot J18.1 LOBAR PNEUMONIA, UNSPECIFIED ORGANISM 10/13/2018 JESSA LOOMIS MALA Ot J20.9 ACUTE BRONCHITIS, UNSPECIFIED 10/13/2018 JESSA LOOMIS MALA Ot K21.9 GASTRO-ESOPHAGEAL REFLUX DISEASE WITHOUT 10/13/2018 JESSA LOOMIS MALA Ot K59.01 SLOW TRANSIT CONSTIPATION 10/13/2018 JESSA LOOMIS MALA Ot K75.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 (RICHARD) 10/13/2018 JESSA LOOMIS MALA Ot M19.91 PRIMARY OSTEOARTHRITIS, UNSPECIFIED SITE 10/13/2018 CHARITY PEREZ DOI Ot R06.2 WHEEZING 10/13/2018 CHARITY PEREZ DOI Ot R94.5 ABNORMAL RESULTS OF LIVER FUNCTION STUDI 10/13/2018 MALA PEREZ DO Ot T38.0X 5A ADVERSE EFFECT OF GLUCOCORT/SYNTH ANALOG 10/13/2018 MALA PEREZ DO Ot Z92.21 PERSONAL HISTORY OF ANTINEOPLASTIC CHEMO 10/13/2018 MALA PEREZ DO Ot Z92.3 PERSONAL HISTORY OF IRRADIATION 10/13/2018 MALA PEREZ DO Ot 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 10/20/2018 MALA PEREZ DO Ot R06.2 WHEEZING 11/17/2018 MALA PEREZ DO Ot J32.9 CHRONIC SINUSITIS, UNSPECIFIED 11/17/2018 MALA PEREZ DO Ot J45.90 9 UNSPECIFIED ASTHMA, UNCOMPLICATED 11/17/2018 MALA PEREZ DO Ot M79.64 5 PAIN IN LEFT FINGER(S) 03/08/2019 NIVIA PENA MD Ot R10.1 1 RIGHT UPPER QUADRANT PAIN 03/08/2019 NIVIA PENA MD Ot R74.0 NONSPEC ELEV OF LEVELS OF TRANSAMNS LA 03/08/2019 MALA PEREZ DO Ot E04.1 NONTOXIC SINGLE THYROID NODULE 03/08/2019 MALA PEREZ DO Ot R06.2 WHEEZING 03/08/2019 MALA PEREZ DO Ot J32.9 CHRONIC SINUSITIS, UNSPECIFIED 03/08/2019 MALA PEREZ DO Ot J45.90 9 UNSPECIFIED ASTHMA, UNCOMPLICATED 03/08/2019 MALA PEREZ DO Ot M79.64 5 PAIN IN LEFT FINGER(S) 03/08/2019 ACE POPE MD Ot E03. 9 HYPOTHYROIDISM, UNSPECIFIED 03/08/2019 ACE POPE MD Ot E78. 00 PURE HYPERCHOLESTEROLEMIA, UNSPECIFIED 03/08/2019 ACE POPE MD Ot J40 BRONCHITIS, NOT SPECIFIED ACUTE OR CH 03/08/2019 ACE POPE MD Ot K21. 9 GASTRO-ESOPHAGEAL REFLUX DISEASE WITHOUT 03/08/2019 ACE POPE MD Ot R05 COUGH 03/08/2019 ACE POPE MD Ot Z79. 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 49 FAMILY HX OF ISCHEM HEART DIS AND OTH DI 03/08/2019 ACE POPE MD, Ot Z85. 6 PERSONAL HISTORY OF LEUKEMIA 03/08/2019 ACE POPE MD, Ot Z87. 01 PERSONAL HISTORY OF PNEUMONIA (RECURRENT 03/08/2019 ACE POPE MD, Ot Z90.710 ACQUIRED ABSENCE OF BOTH CERVIX AND UTER 03/08/2019 ACE POPE MD, Ot Z90. 81 ACQUIRED ABSENCE OF SPLEEN 03/08/2019 ACE POPE MD, Ot Z92. 21 PERSONAL HISTORY OF ANTINEOPLASTIC CHEMO 03/08/2019 ACE POPE MD, Ot Z94. 81 BONE MARROW TRANSPLANT STATUS 04/08/2019 SARAH SADLER MD, Ot A41. 89 OTHER SPECIFIED SEPSIS 04/08/2019 SARAH SADLER MD, Ot B97. 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 9 HYPOTHYROIDISM, UNSPECIFIED 04/08/2019 SARAH SADLER MD, Ot E78. 00 PURE HYPERCHOLESTEROLEMIA, UNSPECIFIED 04/08/2019 SARAH SADLER MD, Ot J45.909 UNSPECIFIED ASTHMA, UNCOMPLICATED 04/08/2019 SARAH SADLER MD, Ot K21. 9 GASTRO-ESOPHAGEAL REFLUX DISEASE WITHOUT 04/08/2019 SARAH SADLER MD, Ot K75. 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 (RICHARD) 04/08/2019 SARAH SADLER MD, Ot M19. 91 PRIMARY OSTEOARTHRITIS, UNSPECIFIED SITE 04/08/2019 SARAH SADLER MD, Ot M79. 18 MYALGIA, OTHER SITE 04/08/2019 SARAH SADLER MD, Ot Z87. 09 PERSONAL HISTORY OF OTHER DISEASES OF TH 04/08/2019 SARAH SADLER MD, Ot Z90. 81 ACQUIRED ABSENCE OF SPLEEN 04/08/2019 SARAH SADLER MD, Ot Z92. 21 PERSONAL HISTORY OF ANTINEOPLASTIC CHEMO 04/08/2019 SARAH SADLER MD Ot Z92. 3 PERSONAL HISTORY OF IRRADIATION 04/08/2019 SARAH SADLER MD, Ot Z94. 81 BONE MARROW TRANSPLANT STATUS 05/12/2019 SADLER MD, SRAAH D Ot E03. 9 HYPOTHYROIDISM, UNSPECIFIED 05/12/2019 VIKTORIYA STOREY, SARAH Voss Ot E88. 81 METABOLIC SYNDROME 07/14/2019 SARAH SADLER MD Ot E03. 9 HYPOTHYROIDISM, UNSPECIFIED 07/14/2019 SARAH SADLER MD Ot E88. 81 METABOLIC SYNDROME 08/06/2019 VIDAL STOREY, M RADHA Ot E66 .3 OVERWEIGHT 08/06/2019 VIDAL STOREY, M RADHA Ot E78 .1 PURE HYPERGLYCERIDEMIA 08/06/2019 VIDAL STOREY, M RADHA Ot E78.49 OTHER HYPERLIPIDEMIA 08/06/2019 VIDAL STOREY, M RADHA Ot E66 .3 OVERWEIGHT 08/06/2019 VIDAL STOREY, M RADHA Ot E78 .1 PURE HYPERGLYCERIDEMIA 08/06/2019 VIDAL STOREY, M RADHA Ot E78.49 OTHER HYPERLIPIDEMIA 08/16/2019 VIDAL STOREY, M RADHA Ot E66 .3 OVERWEIGHT 08/16/2019 VIDAL STOREY, M RADHA Ot E78 .1 PURE HYPERGLYCERIDEMIA 08/16/2019 VIDAL STOREY, M RADHA Ot E78.49 OTHER HYPERLIPIDEMIA 11/17/2019 VIKTORIYA STOREY, SARAH Voss Ot Z12. 31 ENCNTR SCREEN MAMMOGRAM FOR MALIGNANT NE 01/25/2020 NIVIA PENA MD Ot R10.1 1 RIGHT UPPER QUADRANT PAIN 01/25/2020 NIVIA PENA MD Ot R74.0 NONSPEC ELEV OF LEVELS OF TRANSAMNS LA 01/25/2020 PEREZ DO, MALA Ot E04.1 NONTOXIC SINGLE THYROID NODULE 01/25/2020 PEREZ DO, MALA Ot R06.2 WHEEZING 01/25/2020 PEREZ DO, MALA Ot J32.9 CHRONIC SINUSITIS, UNSPECIFIED 01/25/2020 PEREZ DO, MALA Ot J45.90 9 UNSPECIFIED ASTHMA, UNCOMPLICATED 01/25/2020 JESSA DO, MALA Ot M79.64 5 PAIN IN LEFT FINGER(S) 01/25/2020 SARAH SADLER MD Ot E03. 9 HYPOTHYROIDISM, UNSPECIFIED 01/25/2020 SARAH SADLER MD Ot E88. 81 METABOLIC SYNDROME 01/25/2020 VIDAL STOREY, M RADHA Ot E66 .3 OVERWEIGHT 01/25/2020 Sean DRAKE MD Ot E78 .1 PURE HYPERGLYCERIDEMIA 01/25/2020 Sean DRAKE MD Ot E78.49 OTHER HYPERLIPIDEMIA 01/25/2020 SARAH SADLER MD Ot Z12. 31 ENCNTR SCREEN MAMMOGRAM FOR MALIGNANT NE 01/28/2020 LOR HERNDON MD Ot E03.9 HYPOTHYROIDISM, UNSPECIFIED 01/28/2020 LOR HERNDON MD, Ot E78.00 PURE HYPERCHOLESTEROLEMIA, UNSPECIFIED 01/28/2020 LOR HERNDON MD, Ot K21.9 GASTRO-ESOPHAGEAL REFLUX DISEASE WITHOUT 01/28/2020 LOR HERNDON MD, Ot R09.89 OTH SYMPTOMS AND SIGNS INVOLVING THE CIR 01/28/2020 LOR HERNDON MD, Ot R50.9 FEVER, UNSPECIFIED 01/28/2020 LOR HERNDON MD Ot R74.8 ABNORMAL LEVELS OF OTHER SERUM ENZYMES 01/28/2020 LOR HERNDON MD, Ot Z79.51 [facility] (CURRENT) USE OF INHALED STERO 01/28/2020 LOR HERNDON MD, Ot Z82.49 FAMILY HX OF ISCHEM HEART DIS AND OTH DI 01/28/2020 LOR HERNDON MD, Ot Z85.6 PERSONAL HISTORY OF LEUKEMIA 01/28/2020 LOR HERNDON MD, Ot 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 Procedures Code Description Performed By Per formed On [id number] DR ZARAGOZA OF SPINAL CANAL, PERCUTANEOUS A 04/04/2019 Results Test Result Range Thyroid Stimulating Hormone - 01/07/17 0 8:51 TSH 0.02 mIU/mL 0.32-5.00 Phosphorus - 02/07/17 10:00 Phosphorus 3.5 mg/dL 2.5-4.8 ALT (SGPT) - 03/13/17 11:00 ALT 235 Result Verified by Repeat Analysis U /L 6-45 Thyroid Stimulating Hormone - 04/22/17 1 3:51 TSH 0.01 mIU/mL 0.32-5.00 Lipid Panel - 05/07/17 09:36 C/HDL 12.1 3.7-6.7 Cholesterol 484 mg/dL 100-240 HDL 40 mg/dL 30-85 LDL-Calculated 0 Unable to calculate due to elevated triglycerides mg/dL 0-100 Trig 926 mg/dL 35-160 VLDL 185 mg/dL 0-42 Thyroid Stimulating Hormone - 07/24/17 0 9:21 TSH 0.06 mIU/mL 0.32-5.00 Cholesterol - 09/09/17 12:51 Cholesterol 325 mg/dL 100-240 Hepatic Panel - 09/09/17 12:51 Albumin 4.4 g/dL 3.6-5.1 ALP 120 U/L 35-130 ALT 85 U/L 6-45 AST 60 U/L 2-40 DBil 0.1 mg/dL 0.0-0.2 GGT 126 U/L 5-40 Globulin 3.4 g/dL 2.3-3.5 TBil 0.4 mg/dL 0.2-1.2 TP 7.8 g/dL 6.0-8.3 Cholesterol - 10/16/17 09:00 Hepatic Panel - 10/16/17 09:00 Thyroid Stimulating Hormone - 10/16/17 0 9:00 TSH 0.04 mIU/mL 0.32-5.00 Thyroid Stimulating Hormone - 01/02/18 0 9:15 TSH 0.32 mIU/mL 0.32-5.00 Phosphorus - 02/17/18 13:30 Phosphorus 3.0 mg/dL 2.5-4.8 Thyroid Stimulating Hormone - 04/09/18 1 4:35 TSH 1.11 mIU/mL 0.32-5.00 Total Bilirubin - 05/21/18 08:45 TBil 0.3 mg/dL 0.2-1.2 Phosphorus - 05/21/18 08:45 Phosphorus 3.7 mg/dL 2.5-4.8 Thyroid Stimulating Hormone - 07/06/18 1 1:37 TSH 1.15 mIU/mL 0.32-5.00 Complete urinalysis with reflex to cultu re - 08/06/18 16:20 Urine color determination YELLOW NRG Urine clarity determination CLEAR NR G Urine pH measurement by test strip 6 5-9 Specific gravity of urine by test strip 1.015 1.016-1.022 Urine protein assay by test strip, semi-quantitative 4+ NEGATIVE Urine glucose detection by automated test strip NE GATIVE NEGATIVE Erythrocytes detection in urine sediment by light micr oscopy NEGATIVE NEGATIVE Urine ketones detection by automated test strip NE GATIVE NEGATIVE Urine nitrite detection by test strip NEGATIVE NEGATIVE Urine total bilirubin detection by test strip NEGA TIVE NEGATIVE Urine urobilinogen measurement by automated test strip (mass/volume) NORMAL NORMAL Urine leukocyte esterase detection by dipstick NEG ATIVE NEGATIVE Automated urine sediment erythrocyte cou nt by microscopy (number/high power field) NONE NRG Automated urine sediment leukocyte count by microscopy (number/high power field) RARE NRG Bacteria detection in urine sediment by light microsco py TRACE NRG Squamous epithelial cells detection in u rine sediment by light microscopy 0-2 NRG Crystals detection in urine sediment by light microsco py NONE NRG Casts detection in urine sediment [...] 5-14 Serum or plasma urea nitrogen measurement (mass/volume ) 10 mg/dL 7-18 Serum or plasma creatinine measurement (mass/volume) 1.11 mg/dL 0.60-1.30 Serum or plasma urea nitrogen/creatinine mass ratio 9 NRG Serum or plasma creatinine measurement w ith calculation of estimated glomerular filtration rate 51 NRG Serum or plasma glucose measurement (mass/volume) 121 mg/dL 70-105 Serum or plasma calcium measurement (mass/volume) 10.0 mg/dL 8.5-10.1 Serum or plasma total bilirubin measurement (mass/volu me) 0.5 mg/dL 0.1-1.0 Serum or plasma alkaline phosphatase [place] surement (enzymatic activity/volume) 113 U/L 40-136 Serum or plasma aspartate aminotransfera se measurement (enzymatic activity/volume) 123 U/L 5-34 Serum or plasma alanine aminotransferase measurement (enzymatic activity/volume) 133 U/L 0-55 Serum or plasma protein measurement (mass/volume) 8.7 g/dL 6.4-8.2 Serum or plasma albumin measurement (mass/volume) 4.4 g/dL 3.2-4.5 CALCIUM CORRECTED 9.7 mg/dL 8.5-10.1 Bacterial blood culture - 08/06/18 17:04 Bacterial blood culture [facility] Complete blood count (CBC) with automate d white blood cell (WBC) differential - 08/06/18 17:12 Blood leukocytes automated count (number/volume) 14.7 10*3/uL 4.3-11.0 Blood erythrocytes automated count (number/volume) 4.57 10*6/uL 4.35-5.85 Venous blood hemoglobin measurement (mass/volume) 14.6 g/dL 11.5-16.0 Blood hematocrit (volume fraction) 43 % 35-52 Automated erythrocyte mean corpuscular volume 93 [ foz_us] 80-99 Automated erythrocyte mean corpuscular h emoglobin (mass per erythrocyte) 32 pg 25-34 Automated erythrocyte mean corpuscular h emoglobin concentration measurement (mass/volume) 34 g/dL 32-36 Automated erythrocyte distribution width ratio 14. 3 % 10.0- 14.5 Automated blood platelet count (count/volume) 369 10*3/uL [...] 10*3 1.0-4.0 Blood monocytes automated count (number/volume) 1. 6 10*3 0.0-1.0 Automated eosinophil count 0.5 10*3/uL 0 .0-0.3 Automated blood basophil count (count/volume) 0.3 10*3/uL 0.0-0.1 Bacterial blood culture - 08/06/18 17:12 Bacterial blood culture [facility] Influenza virus A and B antigen detectio n - 08/06/18 18:00 FLU RESULT NEGATIVE FOR INFLUENZA A AND B ANTIGENS BY IA [facility] Blood lactic acid measurement (moles/vol ume) - 08/06/18 18:00 Blood lactic acid measurement (moles/volume) 1.97 mmol/L 0.50-2.00 Sputum Gram stain - 08/06/18 18:00 Sputum Gram stain REPORTED 08-07-2018, 1705. [facility] [place] Bacterial sputum culture - 08/06/18 18:0 0 Bacterial sputum culture NORMAL [facility] [place] Complete blood count (CBC) with automate d white blood cell (WBC) differential - 08/07/18 05:35 Blood leukocytes automated count (number/volume) 11.5 10*3/uL 4.3-11.0 Blood erythrocytes automated count (number/volume) 4.04 10*6/uL 4.35-5.85 Venous blood hemoglobin measurement (mass/volume) 12.7 g/dL 11.5-16.0 Blood hematocrit (volume fraction) 38 % 35-52 Automated erythrocyte mean corpuscular volume 94 [ foz_us] 80-99 Automated erythrocyte mean corpuscular h emoglobin (mass per erythrocyte) 31 pg 25-34 Automated erythrocyte mean corpuscular h emoglobin concentration measurement (mass/volume) 33 g/dL 32-36 Automated erythrocyte distribution width ratio 14. 5 % 10.0- 14.5 Automated blood platelet count (count/volume) 336 10*3/uL [...] 10*3 1.0-4.0 Blood monocytes automated count (number/volume) 0. 2 10*3 0.0-1.0 Automated eosinophil count 0.0 10*3/uL 0 .0-0.3 Automated blood basophil count (count/volume) 0.0 10*3/uL 0.0-0.1 Comprehensive metabolic panel - 08/07/18 05:35 Serum or plasma sodium measurement (moles/volume) 136 mmol/L 135-145 Serum or plasma potassium measurement (moles/volume) 4.1 mmol/L 3.6-5.0 Serum or plasma chloride measurement (moles/volume) 104 mmol/L 98-107 Carbon dioxide 15 mmol/L 21-32 Serum or plasma anion gap determination (moles/volume) 17 mmol/L 5-14 Serum or plasma urea nitrogen measurement (mass/volume ) 15 mg/dL 7-18 Serum or plasma creatinine measurement (mass/volume) 1.21 mg/dL 0.60-1.30 Serum or plasma urea nitrogen/creatinine mass ratio 12 NRG Serum or plasma creatinine measurement w ith calculation of estimated glomerular filtration rate 46 NRG Serum or plasma glucose measurement (mass/volume) 358 mg/dL 70-105 Serum or plasma calcium measurement (mass/volume) 9.6 mg/dL 8.5-10.1 Serum or plasma total bilirubin measurement (mass/volu me) 0.2 mg/dL 0.1-1.0 Serum or plasma alkaline phosphatase [place] surement (enzymatic activity/volume) 100 U/L 40-136 Serum or plasma aspartate aminotransfera se measurement (enzymatic activity/volume) 71 U/L 5-34 Serum or plasma alanine aminotransferase measurement (enzymatic activity/volume) 108 U/L 0-55 Serum or plasma protein measurement (mass/volume) 7.2 g/dL 6.4-8.2 Serum or plasma albumin measurement (mass/volume) 3.9 g/dL 3.2-4.5 CALCIUM CORRECTED 9.7 mg/dL 8.5-10.1 Direct Bilirubin - 09/03/18 14:37 DBil 0.2 mg/dL 0.0-0.2 Sputum Gram stain - 10/06/18 16:13 Sputum Gram stain Mixed Bacterial Dawn[place] [facility] Bacterial sputum culture - 10/06/18 16:1 3 QUANTITY OF GROWTH . [facility] [place] Bacterial sputum culture USUAL RESP [facility] [place] Influenza virus A and B antigen detectio n - 10/06/18 16:40 FLU RESULT NEGATIVE FOR INFLUENZA A AND B ANTIGENS BY IA [facility] [place] Bacterial blood culture - 10/06/18 17:30 Bacterial blood culture NG [facility] [place] Complete blood count (CBC) with automate d white blood cell (WBC) differential - 10/06/18 17:42 Blood leukocytes automated count (number/volume) 13.2 10*3/uL 4.3-11.0 Blood erythrocytes automated count (number/volume) 4.33 10*6/uL 4.35-5.85 Venous blood hemoglobin measurement (mass/volume) 13.5 g/dL 11.5-16.0 Blood hematocrit (volume fraction) 40 % 35-52 Automated erythrocyte mean corpuscular volume 92 [ foz_us] 80-99 Automated erythrocyte mean corpuscular h emoglobin (mass per erythrocyte) 31 pg 25-34 Automated erythrocyte mean corpuscular h emoglobin concentration measurement (mass/volume) 34 g/dL 32-36 Automated erythrocyte distribution width ratio 13. 7 % 10.0- 14.5 Automated blood platelet count (count/volume) 315 10*3/uL [...] 10*3 1.0-4.0 Blood monocytes automated count (number/volume) 1. 4 10*3 0.0-1.0 Automated eosinophil count 1.1 10*3/uL 0 .0-0.3 Automated blood basophil count (count/volume) 0.3 10*3/uL 0.0-0.1 Blood lactic acid measurement (moles/vol ume) - 10/06/18 17:42 Blood lactic acid measurement [...] 5-14 Serum or plasma urea nitrogen measurement (mass/volume ) 9 mg/dL 7-18 Serum or plasma creatinine measurement (mass/volume) 0.90 mg/dL 0.60-1.30 Serum or plasma urea nitrogen/creatinine mass ratio 10 NRG Serum or plasma creatinine measurement w ith calculation of estimated glomerular filtration rate > NRG Serum or plasma glucose measurement (mass/volume) 93 mg/dL 70-105 Serum or plasma calcium measurement (mass/volume) 10.1 mg/dL 8.5-10.1 Serum or plasma total bilirubin measurement (mass/volu me) 0.7 mg/dL 0.1-1.0 Serum or plasma alkaline phosphatase [place] surement (enzymatic activity/volume) 110 U/L 40-136 Serum or plasma aspartate aminotransfera se measurement (enzymatic activity/volume) 75 U/L 5-34 Serum or plasma alanine aminotransferase measurement (enzymatic activity/volume) 89 U/L 0-55 Serum or plasma protein measurement (mass/volume) 7.9 g/dL 6.4-8.2 Serum or plasma albumin measurement (mass/volume) 4.4 g/dL 3.2-4.5 CALCIUM CORRECTED 9.8 mg/dL 8.5-10.1 Serum or plasma troponin i.cardiac measu rement (mass/volume) - 10/06/18 17:42 Serum or plasma troponin i.cardiac measurement (mass/v olume) < ng/mL <0.30 Serum or plasma lithium measurement (mol es/volume) - 10/06/18 17:42 BNP level < pg/mL <100.0 Bacterial blood culture - 10/06/18 17:42 Bacterial blood culture NG NRG Complete urinalysis with reflex to cultu re - 10/06/18 17:45 Urine color determination YELLOW NRG Urine clarity determination CLEAR NR G Urine pH measurement by test strip 6.5 5-9 Specific gravity of urine by test strip 1.010 1.016-1.022 Urine protein assay by test strip, semi-quantitative 1+ NEGATIVE Urine glucose detection by automated test strip NE GATIVE NEGATIVE Erythrocytes detection in urine sediment by light micr oscopy NEGATIVE NEGATIVE Urine ketones detection by automated test strip NE GATIVE NEGATIVE Urine nitrite detection by test strip NEGATIVE NEGATIVE Urine total bilirubin detection by test strip NEGA TIVE NEGATIVE Urine urobilinogen measurement by automated test strip (mass/volume) NORMAL NORMAL Urine leukocyte esterase detection by dipstick NEG ATIVE NEGATIVE Automated urine sediment erythrocyte cou nt by microscopy (number/high power field) NONE NRG Automated urine sediment leukocyte count by microscopy (number/high power field) NONE NRG Bacteria detection in urine sediment by light microsco py NEGATIVE NRG Squamous epithelial cells detection in u rine sediment by light microscopy RARE NRG Crystals detection in urine sediment by light microsco py NONE NRG Casts detection in urine sediment by light microscopy NONE NRG Mucus detection in urine sediment by light microscopy NEGATIVE NRG Complete urinalysis with reflex to culture NO NRG Complete blood count (CBC) with automate d white blood cell (WBC) differential - 10/07/18 05:30 Blood leukocytes automated count (number/volume) 10.6 10*3/uL 4.3-11.0 Blood erythrocytes automated count (number/volume) 4.22 10*6/uL 4.35-5.85 Venous blood hemoglobin measurement (mass/volume) 13.1 g/dL 11.5-16.0 Blood hematocrit (volume fraction) 39 % 35-52 Automated erythrocyte mean corpuscular volume 92 [ foz_us] 80-99 Automated erythrocyte mean corpuscular h emoglobin (mass per erythrocyte) 31 pg 25-34 Automated erythrocyte mean corpuscular h emoglobin concentration measurement (mass/volume) 34 g/dL 32-36 Automated erythrocyte distribution width ratio 14. 0 % 10.0- 14.5 Automated blood platelet count (count/volume) 356 10*3/uL [...] 10*3 1.0-4.0 Blood monocytes automated count (number/volume) 0. 1 10*3 0.0-1.0 Automated eosinophil count 0.0 10*3/uL 0 .0-0.3 Automated blood basophil count (count/volume) 0.1 10*3/uL 0.0-0.1 Comprehensive metabolic panel - 10/07/18 05:30 Serum or plasma sodium measurement (moles/volume) 137 mmol/L 135-145 Serum or plasma potassium measurement (moles/volume) 3.6 mmol/L 3.6-5.0 Serum or plasma chloride measurement (moles/volume) 103 mmol/L 98-107 Carbon dioxide 19 mmol/L 21-32 Serum or plasma anion gap determination (moles/volume) 15 mmol/L 5-14 Serum or plasma urea nitrogen measurement (mass/volume ) 10 mg/dL 7-18 Serum or plasma creatinine measurement (mass/volume) 0.97 mg/dL 0.60-1.30 Serum or plasma urea nitrogen/creatinine mass ratio 10 NRG Serum or plasma creatinine measurement w ith calculation of estimated glomerular filtration rate 60 NRG Serum or plasma glucose measurement (mass/volume) 268 mg/dL 70-105 Serum or plasma calcium measurement (mass/volume) 9.6 mg/dL 8.5-10.1 Serum or plasma total bilirubin measurement (mass/volu me) 0.4 mg/dL 0.1-1.0 Serum or plasma alkaline phosphatase [place] surement (enzymatic activity/volume) 101 U/L 40-136 Serum or plasma aspartate aminotransfera se measurement (enzymatic activity/volume) 53 U/L 5-34 Serum or plasma alanine aminotransferase measurement (enzymatic activity/volume) 80 U/L 0-55 Serum or plasma protein measurement (mass/volume) 7.3 g/dL 6.4-8.2 Serum or plasma albumin measurement (mass/volume) 4.1 g/dL 3.2-4.5 CALCIUM CORRECTED 9.5 mg/dL 8.5-10.1 Complete blood count (CBC) with automate d white blood cell (WBC) differential - 10/08/18 06:59 Blood leukocytes automated count (number/volume) 30.1 10*3/uL 4.3-11.0 Blood erythrocytes automated count (number/volume) 3.98 10*6/uL 4.35-5.85 Venous blood hemoglobin measurement (mass/volume) 12.5 g/dL 11.5-16.0 Blood hematocrit (volume fraction) 37 % 35-52 Automated erythrocyte mean corpuscular volume 93 [ foz_us] 80-99 Automated erythrocyte mean corpuscular h emoglobin (mass per erythrocyte) 31 pg 25-34 Automated erythrocyte mean corpuscular h emoglobin concentration measurement (mass/volume) 34 g/dL 32-36 Automated erythrocyte distribution width ratio 14. 7 % 10.0- 14.5 Automated blood platelet count (count/volume) 353 10*3/uL [...] 10*3 1.0-4.0 Blood monocytes automated count (number/volume) 1. 4 10*3 0.0-1.0 Automated eosinophil count 0.0 10*3/uL 0 .0-0.3 Automated blood basophil count (count/volume) 0.0 10*3/uL 0.0-0.1 Comprehensive metabolic panel - 10/08/18 06:59 Serum or plasma sodium measurement (moles/volume) 139 mmol/L 135-145 Serum or plasma potassium measurement (moles/volume) 3.7 mmol/L 3.6-5.0 Serum or plasma chloride measurement (moles/volume) 103 mmol/L 98-107 Carbon dioxide 19 mmol/L 21-32 Serum or plasma anion gap determination (moles/volume) 17 mmol/L 5-14 Serum or plasma urea nitrogen measurement (mass/volume ) 18 mg/dL 7-18 Serum or plasma creatinine measurement (mass/volume) 1.01 mg/dL 0.60-1.30 Serum or plasma urea nitrogen/creatinine mass ratio 18 NRG Serum or plasma creatinine measurement w ith calculation of estimated glomerular filtration rate 57 NRG Serum or plasma glucose measurement (mass/volume) 266 mg/dL 70-105 Serum or plasma calcium measurement (mass/volume) 10.1 mg/dL 8.5-10.1 Serum or plasma total bilirubin measurement (mass/volu me) 0.4 mg/dL 0.1-1.0 Serum or plasma alkaline phosphatase [place] surement (enzymatic activity/volume) 100 U/L 40-136 Serum or plasma aspartate aminotransfera se measurement (enzymatic activity/volume) 26 U/L 5-34 Serum or plasma alanine aminotransferase measurement (enzymatic activity/volume) 62 U/L 0-55 Serum or plasma protein measurement (mass/volume) 7.6 g/dL 6.4-8.2 Serum or plasma albumin measurement (mass/volume) 4.1 g/dL 3.2-4.5 CALCIUM CORRECTED 10.0 mg/dL 8.5-10.1 Complete blood count (CBC) with automate d white blood cell (WBC) differential - 10/09/18 03:55 Blood leukocytes automated count (number/volume) 27.4 10*3/uL 4.3-11.0 Blood erythrocytes automated count (number/volume) 3.89 10*6/uL 4.35-5.85 Venous blood hemoglobin measurement (mass/volume) 12.2 g/dL 11.5-16.0 Blood hematocrit (volume fraction) 37 % 35-52 Automated erythrocyte mean corpuscular volume 94 [ foz_us] 80-99 Automated erythrocyte mean corpuscular h emoglobin (mass per erythrocyte) 31 pg 25-34 Automated erythrocyte mean corpuscular h emoglobin concentration measurement (mass/volume) 33 g/dL 32-36 Automated erythrocyte distribution width ratio 14. 7 % 10.0- 14.5 Automated blood platelet count (count/volume) 352 10*3/uL [...] 10*3 1.0-4.0 Blood monocytes automated count (number/volume) 1. 5 10*3 0.0-1.0 Automated eosinophil count 0.0 10*3/uL 0 .0-0.3 Automated blood basophil count (count/volume) 0.0 10*3/uL 0.0-0.1 Comprehensive metabolic panel - 10/09/18 03:55 Serum or plasma sodium measurement (moles/volume) 138 mmol/L 135-145 Serum or plasma potassium measurement (moles/volume) 4.2 mmol/L 3.6-5.0 Serum or plasma chloride measurement (moles/volume) 101 mmol/L 98-107 Carbon dioxide 23 mmol/L 21-32 Serum or plasma anion gap determination (moles/volume) 14 mmol/L 5-14 Serum or plasma urea nitrogen measurement (mass/volume ) 18 mg/dL 7-18 Serum or plasma creatinine measurement (mass/volume) 1.00 mg/dL 0.60-1.30 Serum or plasma urea nitrogen/creatinine mass ratio 18 NRG Serum or plasma creatinine measurement w ith calculation of estimated glomerular filtration rate 58 NRG Serum or plasma glucose measurement (mass/volume) 319 mg/dL 70-105 Serum or plasma calcium measurement (mass/volume) 10.1 mg/dL 8.5-10.1 Serum or plasma total bilirubin measurement (mass/volu me) 0.4 mg/dL 0.1-1.0 Serum or plasma alkaline phosphatase [place] surement (enzymatic activity/volume) 105 U/L 40-136 Serum or plasma aspartate aminotransfera se measurement (enzymatic activity/volume) 20 U/L 5-34 Serum or plasma alanine aminotransferase measurement (enzymatic activity/volume) 51 U/L 0-55 Serum or plasma protein measurement (mass/volume) 7.6 g/dL 6.4-8.2 Serum or plasma albumin measurement (mass/volume) 4.1 g/dL 3.2-4.5 CALCIUM CORRECTED 10.0 mg/dL 8.5-10.1 Blood manual differential performed dete ction - 10/09/18 03:55 Blood monocytes/100 leukocytes 3 % NRG Manual blood segmented neutrophils/100 leukocytes 71 % NRG Blood band neutrophils/100 leukocytes 2 % NRG Manual blood lymphocytes/100 leukocytes 22 % NRG Manual eosinophils/100 leukocytes in nose 0 % NRG Manual blood basophils/100 leukocytes 0 % NRG Blood smudge cells detection by light microscopy M OD NRG Blood polychromasia detection by light microscopy SLIGHT NRG Blood anisocytosis detection by light microscopy S LIGHT NRG Blood toxic granules detection by light microscopy 1+ NRG Manual blood metamyelocytes/100 leukocytes 1 % NRG Blood target cells detection by light microscopy S LIGHT NRG Blood Thakkar-Beaufort bodies detection by light microscop y SLIGHT NRG Manual blood myelocytes/100 leukocytes 1 % NRG Complete blood count (CBC) with automate d white blood cell (WBC) differential - 10/10/18 05:10 Blood leukocytes automated count (number/volume) 26.6 10*3/uL 4.3-11.0 Blood erythrocytes automated count (number/volume) 3.98 10*6/uL 4.35-5.85 Venous blood hemoglobin measurement (mass/volume) 13.3 g/dL 11.5-16.0 Blood hematocrit (volume fraction) 37 % 35-52 Automated erythrocyte mean corpuscular volume 94 [ foz_us] 80-99 Automated erythrocyte mean corpuscular h emoglobin (mass per erythrocyte) 33 pg 25-34 Automated erythrocyte mean corpuscular h emoglobin concentration measurement (mass/volume) 36 g/dL 32-36 Automated erythrocyte distribution width ratio 14. 5 % 10.0- 14.5 Automated blood platelet count (count/volume) 369 10*3/uL [...] 10*3 1.0-4.0 Blood monocytes automated count (number/volume) 2. 4 10*3 0.0-1.0 Automated eosinophil count 0.0 10*3/uL 0 .0-0.3 Automated blood basophil count (count/volume) 0.1 10*3/uL 0.0-0.1 Comprehensive metabolic panel - 10/10/18 05:10 Serum or plasma sodium measurement (moles/volume) 134 mmol/L 135-145 Serum or plasma potassium measurement (moles/volume) 3.7 mmol/L 3.6-5.0 Serum or plasma chloride measurement (moles/volume) 97 mmol/L 98-107 Carbon dioxide 18 mmol/L 21-32 Serum or plasma anion gap determination (moles/volume) 19 mmol/L 5-14 Serum or plasma urea nitrogen measurement (mass/volume ) 18 mg/dL 7-18 Serum or plasma creatinine measurement (mass/volume) 0.86 mg/dL 0.60-1.30 Serum or plasma urea nitrogen/creatinine mass ratio 21 NRG Serum or plasma creatinine measurement w ith calculation of estimated glomerular filtration rate > NRG Serum or plasma glucose measurement (mass/volume) 131 mg/dL 70-105 Serum or plasma calcium measurement (mass/volume) 10.1 mg/dL 8.5-10.1 Serum or plasma total bilirubin measurement (mass/volu me) 0.4 mg/dL 0.1-1.0 Serum or plasma alkaline phosphatase [place] surement (enzymatic activity/volume) 91 U/L 40-136 Serum or plasma aspartate aminotransfera se measurement (enzymatic activity/volume) 26 U/L 5-34 Serum or plasma alanine aminotransferase measurement (enzymatic activity/volume) 50 U/L 0-55 Serum or plasma protein measurement (mass/volume) 9.2 g/dL 6.4-8.2 Serum or plasma albumin measurement (mass/volume) 4.1 g/dL 3.2-4.5 CALCIUM CORRECTED 10.0 mg/dL 8.5-10.1 CBC with Auto Diff - 10/27/18 09:25 Baso% 0.70 % 0.00-2.50 Eos 0.5 K/uL 0.0-0.7 Eos% 5.2 % 0.0-7.0 Hct 42.0 % 36.0-46.0 Hgb 14.6 g/dL 13.0-15.0 Lym 2.29 K/uL 0.60-3.40 Lym% 23.6 % 10.0-50.0 MCH 33.5 pg 27.0-31.0 MCHC 34.8 g/dL 32.0-36.0 MCV 96.3 fL 80.0-97.0 [place]% 16.0 % 0.0-12.0 MPV 11.5 fL 7.4-10.0 [place]% 54.5 % 37.0-80.0 Plt 414 K/uL 150-400 RBC 4.36 M/uL 3.60-5.00 RDW 14.3 % 11.6-14.8 WBC 9.72 K/uL 5.00-10.00 [place] 5.29 K/uL 2.00-6.90 [place] 1.6 K/uL 0.0-0.9 Baso 0.1 K/uL 0.0-0.2 Free T4 - 11/13/18 10:55 Free T4 1.28 ng/dL 0.81-1.61 Phosphorus - 01/13/19 11:55 Phosphorus 3.9 mg/dL 2.5-4.8 Complete blood count (CBC) with automate d white blood cell (WBC) differential - 03/08/19 13:10 Blood leukocytes automated count (number/volume) 10.0 10*3/uL 4.3-11.0 Blood erythrocytes automated count (number/volume) 4.64 10*6/uL 4.35-5.85 Venous blood hemoglobin measurement (mass/volume) 14.4 g/dL 11.5-16.0 Blood hematocrit (volume fraction) 42 % 35-52 Automated erythrocyte mean corpuscular volume 90 [ foz_us] 80-99 Automated erythrocyte mean corpuscular h emoglobin (mass per erythrocyte) 31 pg 25-34 Automated erythrocyte mean corpuscular h emoglobin concentration measurement (mass/volume) 34 g/dL 32-36 Automated erythrocyte distribution width ratio 13. 7 % 10.0- 14.5 Automated blood platelet count (count/volume) 418 10*3/uL [...] 10*3 1.0-4.0 Blood monocytes automated count (number/volume) 1. 2 10*3 0.0-1.0 Automated eosinophil count 0.4 10*3/uL 0 .0-0.3 Automated blood basophil count (count/volume) 0.2 10*3/uL 0.0-0.1 Influenza virus A and B antigen detectio n - 03/08/19 13:10 FLU RESULT NEGATIVE FOR INFLUENZA A AND B ANTIGENS BY IA [facility] Comprehensive metabolic panel - 03/08/19 13:10 Serum or plasma sodium measurement (moles/volume) 135 mmol/L 135-145 Serum or plasma potassium measurement (moles/volume) 3.8 mmol/L 3.6-5.0 Serum or plasma chloride measurement (moles/volume) 101 mmol/L 98-107 Carbon dioxide 24 mmol/L 21-32 Serum or plasma anion gap determination (moles/volume) 10 mmol/L 5-14 Serum or plasma urea nitrogen measurement (mass/volume ) 12 mg/dL 7-18 Serum or plasma creatinine measurement (mass/volume) 0.99 mg/dL 0.60-1.30 Serum or plasma urea nitrogen/creatinine mass ratio 12 [facility] Serum or plasma creatinine measurement w ith calculation of estimated glomerular filtration rate 58 [facility] Serum or plasma glucose measurement (mass/volume) 100 mg/dL 70-105 Serum or plasma calcium measurement (mass/volume) 10.3 mg/dL 8.5-10.1 Serum or plasma total bilirubin measurement (mass/volu me) 0.5 mg/dL 0.1-1.0 Serum or plasma alkaline phosphatase [place] surement (enzymatic activity/volume) 125 U/L 40-136 Serum or plasma aspartate aminotransfera se measurement (enzymatic activity/volume) 76 U/L 5-34 Serum or plasma alanine aminotransferase measurement (enzymatic activity/volume) 87 U/L 0-55 Serum or plasma protein measurement (mass/volume) 7.9 g/dL 6.4-8.2 Serum or plasma albumin measurement (mass/volume) 4.4 g/dL 3.2-4.5 CALCIUM CORRECTED 10.0 mg/dL 8.5-10.1 Serum or plasma C reactive protein measu rement (mass/volume) - 03/08/19 13:10 Serum or plasma C reactive protein measurement (mass/v olume) 0.35 mg/dL 0.00-0.50 Blood lactic acid measurement (moles/vol ume) - 04/04/19 19:51 Blood lactic acid measurement (moles/volume) 1.94 mmol/L 0.50-2.00 Complete blood count (CBC) with automate d white blood cell (WBC) differential - 04/04/19 19:51 Blood leukocytes automated count (number/volume) 15.0 10*3/uL 4.3-11.0 Blood erythrocytes automated count (number/volume) 4.58 10*6/uL 4.35-5.85 Venous blood hemoglobin measurement (mass/volume) 14.0 g/dL 11.5-16.0 Blood hematocrit (volume fraction) 41 % 35-52 Automated erythrocyte mean corpuscular volume 90 [ foz_us] 80-99 Automated erythrocyte mean corpuscular h emoglobin (mass per erythrocyte) 31 pg 25-34 Automated erythrocyte mean corpuscular h emoglobin concentration measurement (mass/volume) 34 g/dL 32-36 Automated erythrocyte distribution width ratio 14. 2 % 10.0- 14.5 Automated blood platelet count (count/volume) 325 10*3/uL 130-400 Automated blood platelet mean volume measurement 10.1 [foz_us] 7.4-10.4 Automated blood neutrophils/100 leukocytes 77 % 42-75 Automated blood lymphocytes/100 leukocytes 12 % 12-44 Blood monocytes/100 leukocytes 10 % 0-12 Automated blood eosinophils/100 leukocytes 1 % 0-10 Automated blood basophils/100 leukocytes 1 % 0-10 Blood neutrophils automated count (number/volume) 11.5 10*3 1.8-7.8 Blood lymphocytes automated count (number/volume) 1.7 10*3 1.0-4.0 Blood monocytes automated count (number/volume) 1. 5 10*3 0.0-1.0 Automated eosinophil count 0.1 10*3/uL 0 .0-0.3 Automated blood basophil count (count/volume) 0.1 10*3/uL 0.0-0.1 PT panel in platelet poor plasma by coag ulation assay - 04/04/19 19:51 Prothrombin time (PT) in platelet poor plasma by coagu lation assay 12.6 s 12.2-14.7 INR in platelet poor plasma or blood by coagulation as say 0.9 0.8-1.4 Activated partial thromboplastin time (a PTT) in platelet poor plasma bycoagulation assay - 04/04/19 19:51 Activated partial thromboplastin time (a PTT) in platelet poor plasma bycoagulation assay 26 s 24-35 Comprehensive metabolic panel - 04/04/19 19:51 Serum or plasma sodium measurement (moles/volume) 135 mmol/L 135-145 Serum or plasma potassium measurement (moles/volume) 3.9 mmol/L 3.6-5.0 Serum or plasma chloride measurement (moles/volume) 100 mmol/L 98-107 Carbon dioxide 20 mmol/L 21-32 Serum or plasma anion gap determination (moles/volume) 15 mmol/L 5-14 Serum or plasma urea nitrogen measurement (mass/volume ) 18 mg/dL 7-18 Serum or plasma creatinine measurement (mass/volume) 1.00 mg/dL 0.60-1.30 Serum or plasma urea nitrogen/creatinine mass ratio 18 NRG Serum or plasma creatinine measurement w ith calculation of estimated glomerular filtration rate 58 NRG Serum or plasma glucose measurement (mass/volume) 120 mg/dL 70-105 Serum or plasma calcium measurement (mass/volume) 10.3 mg/dL 8.5-10.1 Serum or plasma total bilirubin measurement (mass/volu me) 0.5 mg/dL 0.1-1.0 Serum or plasma alkaline phosphatase [place] surement (enzymatic activity/volume) 125 U/L 40-136 Serum or plasma aspartate aminotransfera se measurement (enzymatic activity/volume) 58 U/L 5-34 Serum or plasma alanine aminotransferase measurement (enzymatic activity/volume) 87 U/L 0-55 Serum or plasma protein measurement (mass/volume) 8.3 g/dL 6.4-8.2 Serum or plasma albumin measurement (mass/volume) 4.5 g/dL 3.2-4.5 CALCIUM CORRECTED 9.9 mg/dL 8.5-10.1 Blood manual differential performed dete ction - 04/04/19 19:51 Blood monocytes/100 leukocytes 4 % NRG Manual blood segmented neutrophils/100 leukocytes 84 % NRG Manual blood lymphocytes/100 leukocytes 12 % NR Blood erythrocyte morphology finding identification NORMAL NR Bacterial blood culture - 04/04/19 19:51 Bacterial blood culture NG NR Streptococcus pyogenes antigen detection - 04/04/19 19:54 Streptococcus pyogenes antigen detection NEGATIVE NEGATIVE Bacterial throat culture - 04/04/19 19:5 4 Bacterial throat culture NBS NRG Bacterial blood culture - 04/04/19 20:09 Bacterial blood culture NG NR Complete urinalysis with reflex to cultu re - 04/04/19 20:24 Urine color determination YELLOW NRG Urine clarity determination CLEAR NR G Urine pH measurement by test strip 6 5-9 Specific gravity of urine by test strip 1.020 1.016-1.022 Urine protein assay by test strip, semi-quantitative 4+ NEGATIVE Urine glucose detection by automated test strip NE GATIVE NEGATIVE Erythrocytes detection in urine sediment by light micr oscopy 1+ NEGATIVE Urine ketones detection by automated test strip NE GATIVE NEGATIVE Urine nitrite detection by test strip NEGATIVE NEGATIVE Urine total bilirubin detection by test strip NEGA TIVE NEGATIVE Urine urobilinogen measurement by automated test strip (mass/volume) NORMAL NORMAL Urine leukocyte esterase detection by dipstick NEG ATIVE NEGATIVE Automated urine sediment erythrocyte cou nt by microscopy (number/high power field) [HPF] NRG Automated urine sediment leukocyte count by microscopy (number/high power field) [HPF] NRG Bacteria detection in urine sediment by light microsco py NEGATIVE NRG Crystals detection in urine sediment by light microsco py NONE NRG Casts detection in urine sediment by light microscopy NONE NRG Mucus detection in urine sediment by light microscopy NEGATIVE NRG Complete urinalysis with reflex to culture NO NRG Cerebrospinal fluid cell count - 9 20:45 Cerebrospinal fluid appearance description CLEAR NRG Cerebrospinal fluid color identification COLORLESS NRG Cerebrospinal fluid leukocytes count (number/volume) 1 % 0-5 Cerebrospinal fluid erythrocytes count (number/volume) 4 % 0-0 Manual cerebrospinal fluid lymphocytes/100 leukocytes TNP NRG Manual cerebrospinal fluid mononuclear cells/100 leuko cytes TNP NRG Manual cerebrospinal fluid polymorphonuclear cells/100 leukocytes TNP NRG Cerebrospinal fluid cell count on specimen from last t ube collected 4 NRG Cerebrospinal fluid glucose measurement (mass/volume) - 04/04/19 20:45 Cerebrospinal fluid glucose measurement (mass/volume) 74 mg/dL 50-80 Cerebrospinal fluid protein measurement (mass/volume) - 04/04/19 20:45 Cerebrospinal fluid protein measurement (mass/volume) 41 mg/dL 15-40 Gram stain microscopy - 04/04/19 20:45 Gram stain microscopy NO WBC OR BACTERIA OBS ERVED ON DIRECT GRAM STAIN. [facility] Bacterial cerebrospinal fluid culture - 04/04/19 20:45 FREE TEXT EXTERNAL SUSCEPTIBILITY REPORTED 04/07/19 07:05 NRG QUANTITY OF GROWTH Rare NRG Bacterial cerebrospinal fluid culture [id number] [facility] RML Sensitivity Panel - 04/04/19 20:45 Oxacillin susceptibility test by minimum inhibitory co ncentration > NRG Vancomycin susceptibility test by minimum inhibitory c oncentration 1 NRG Rifampin susceptibility test by minimum inhibitory con centration <= NRG Linezolid susceptibility test by minimum inhibitory co ncentration 2 NRG Penicillin G susceptibility test by minimum inhibitory concentration > NRG Complete blood count (CBC) with automate d white blood cell (WBC) differential - 04/05/19 04:45 Blood leukocytes automated count (number/volume) 12.0 10*3/uL 4.3-11.0 Blood erythrocytes automated count (number/volume) 4.52 10*6/uL 4.35-5.85 Venous blood hemoglobin measurement (mass/volume) 13.7 g/dL 11.5-16.0 Blood hematocrit (volume fraction) 41 % 35-52 Automated erythrocyte mean corpuscular volume 90 [ foz_us] 80-99 Automated erythrocyte mean corpuscular h emoglobin (mass per erythrocyte) 30 pg 25-34 Automated erythrocyte mean corpuscular h emoglobin concentration measurement (mass/volume) 34 g/dL 32-36 Automated erythrocyte distribution width ratio 14. 4 % 10.0- 14.5 Automated blood platelet count (count/volume) 304 10*3/uL 130-400 Automated blood platelet mean volume measurement 10.4 [foz_us] 7.4-10.4 Automated blood neutrophils/100 leukocytes 72 % 42-75 Automated blood lymphocytes/100 leukocytes 11 % 12-44 Blood monocytes/100 leukocytes 15 % 0-12 Automated blood eosinophils/100 leukocytes 1 % 0-10 Automated blood basophils/100 leukocytes 1 % 0-10 Blood neutrophils automated count (number/volume) 8.6 10*3 1.8-7.8 Blood lymphocytes automated count (number/volume) 1.4 10*3 1.0-4.0 Blood monocytes automated count (number/volume) 1. 8 10*3 0.0-1.0 Automated eosinophil count 0.1 10*3/uL 0 .0-0.3 Automated blood basophil count (count/volume) 0.1 10*3/uL 0.0-0.1 Comprehensive metabolic panel - 04/05/19 04:45 Serum or plasma sodium measurement (moles/volume) 137 mmol/L 135-145 Serum or plasma potassium measurement (moles/volume) 4.0 mmol/L 3.6-5.0 Serum or plasma chloride measurement (moles/volume) 104 mmol/L 98-107 Carbon dioxide 21 mmol/L 21-32 Serum or plasma anion gap determination (moles/volume) 12 mmol/L 5-14 Serum or plasma urea nitrogen measurement (mass/volume ) 15 mg/dL 7-18 Serum or plasma creatinine measurement (mass/volume) 0.98 mg/dL 0.60-1.30 Serum or plasma urea nitrogen/creatinine mass ratio 15 NRG Serum or plasma creatinine measurement w ith calculation of estimated glomerular filtration rate 59 NRG Serum or plasma glucose measurement (mass/volume) 128 mg/dL 70-105 Serum or plasma calcium measurement (mass/volume) 9.8 mg/dL 8.5-10.1 Serum or plasma total bilirubin measurement (mass/volu me) 0.5 mg/dL 0.1-1.0 Serum or plasma alkaline phosphatase chico surement (enzymatic activity/volume) 113 U/L 40-136 Serum or plasma aspartate aminotransfera se measurement (enzymatic activity/volume) 58 U/L 5-34 Serum or plasma alanine aminotransferase measurement (enzymatic activity/volume) 81 U/L 0-55 Serum or plasma protein measurement (mass/volume) 7.6 g/dL 6.4-8.2 Serum or plasma albumin measurement (mass/volume) 4.2 g/dL 3.2-4.5 CALCIUM CORRECTED 9.6 mg/dL 8.5-10.1 Tick identification panel - 04/05/19 04: 45 Serum Ehrlichia chaffeensis IgG antibody detection <1:16 <1:16 Serum Ehrlichia chaffeensis IgM antibody detection <1:10 <1:10 Serum Rickettsia rickettsii IgG antibody assay (units/ volume) < <1:16 [place] spotted fever panel < <1:10 Francisella tularensis antibody assay <1:20 [facility] LYME AB G M < 0.01 0.00-0.89 Interpretation of Lyme disease antibody assay Nega tive Negative Influenza virus A and B antigen detectio n - 04/06/19 11:03 FLU RESULT NEGATIVE FOR INFLUENZA A AND B ANTIGENS BY IA [facility] Lipid 1996 panel - 04/15/19 09:43 Serum or plasma triglyceride measurement (mass/volume) 1449 mg/dL <150 Serum or plasma cholesterol measurement (mass/volume) 340 mg/dL < 200 Serum or plasma cholesterol in HDL measurement (mass/v olume) 34 mg/dL 40-60 Cholesterol in LDL [mass/volume] in serum or plasma by direct assay 61 mg/dL 1-129 Serum or plasma cholesterol in VLDL measurement (mass/ volume) TNP 5-40 THYROID STIMULATING HORMONE - 04/15/19 0 9:43 THYROID STIMULATING HORMONE 0.87 u[iU]/mL 0.35-4.94 Hemoglobin A1c - 04/15/19 09:43 Blood hemoglobin A1C measurement (mass/volume) 6.7 % 4.0-5.6 MEAN BLOOD GLUCOSE 146 % <=126 Comprehensive metabolic panel - 08/04/19 10:07 Serum or plasma sodium measurement (moles/volume) 140 mmol/L 135-145 Serum or plasma potassium measurement (moles/volume) 4.2 mmol/L 3.6-5.0 Serum or plasma chloride measurement (moles/volume) 103 mmol/L 98-107 Carbon dioxide 29 mmol/L 21-32 Serum or plasma anion gap determination (moles/volume) 8 mmol/L 5-14 Serum or plasma urea nitrogen measurement (mass/volume ) 16 mg/dL 7-18 Serum or plasma creatinine measurement (mass/volume) 0.96 mg/dL 0.60-1.30 Serum or plasma urea nitrogen/creatinine mass ratio 17 NRG Serum or plasma creatinine measurement w ith calculation of estimated glomerular filtration rate 60 NRG Serum or plasma glucose measurement (mass/volume) 126 mg/dL 70-105 Serum or plasma calcium measurement (mass/volume) 10.3 mg/dL 8.5-10.1 Serum or plasma total bilirubin measurement (mass/volu me) 0.4 mg/dL 0.1-1.0 Serum or plasma alkaline phosphatase chico surement (enzymatic activity/volume) 129 U/L 40-136 Serum or plasma aspartate aminotransfera se measurement (enzymatic activity/volume) 66 U/L 5-34 Serum or plasma alanine aminotransferase measurement (enzymatic activity/volume) 88 U/L 0-55 Serum or plasma protein measurement (mass/volume) 8.2 g/dL 6.4-8.2 Serum or plasma albumin measurement (mass/volume) 4.5 g/dL 3.2-4.5 CALCIUM CORRECTED 9.9 mg/dL 8.5-10.1 Lipid 1996 panel - 08/04/19 10:07 Serum or plasma triglyceride measurement (mass/volume) 910 mg/dL <150 Serum or plasma cholesterol measurement (mass/volume) 318 mg/dL < 200 Serum or plasma cholesterol in HDL measurement (mass/v olume) 38 mg/dL 40-60 Cholesterol in LDL [mass/volume] in serum or plasma by direct assay 98 mg/dL 1-129 Serum or plasma cholesterol in VLDL measurement (mass/ volume) TNP 5-40 THYROID STIMULATING HORMONE - 08/04/19 1 0:07 THYROID STIMULATING HORMONE 2.36 u[iU]/mL 0.35-4.94 Serum or plasma thyroxine (T4) free gagandeep urement (mass/volume) - 08/04/19 10:07 Serum or plasma thyroxine (T4) free measurement (mass/ volume) 1.12 ng/dL 0.70-1.48 CARDIO CRP - 08/04/19 10:07 Serum or plasma C reactive protein measu rement by high sensitivity method (mass/volume) 2.60 % <=1.00 Hemoglobin A1c measurement - 08/04/19 10 :07 Blood hemoglobin A1C measurement (mass/volume) 6.6 % 4.0-5.6 MEAN BLOOD GLUCOSE 143 % <=126 TRIIODOTHYRONINE TOTAL T3 - 08/04/19 10: 07 TRIIODOTHYRONINE T3 TOTAL 0.80 % 0.60 -1.80 Influenza virus A and B antigen detectio n - 01/25/20 13:28 FLU RESULT NEGATIVE FOR INFLUENZA A AND B ANTIGENS BY [facility] Complete blood count (CBC) with automate d white blood cell (WBC) differential - 01/25/20 14:01 Blood leukocytes automated count (number/volume) 10.1 10*3/uL 4.3-11.0 Blood erythrocytes automated count (number/volume) 4.52 10*6/uL 4.35-5.85 Venous blood hemoglobin measurement (mass/volume) 13.5 g/dL 11.5-16.0 Blood hematocrit (volume fraction) 41 % 35-52 Automated erythrocyte mean corpuscular volume 91 [ foz_us] 80-99 Automated erythrocyte mean corpuscular h emoglobin (mass per erythrocyte) 30 pg 25-34 Automated erythrocyte mean corpuscular h emoglobin concentration measurement (mass/volume) 33 g/dL 32-36 Automated erythrocyte distribution width ratio 14. 8 % 10.0- 14.5 Automated blood platelet count (count/volume) 516 10*3/uL 130-400 Automated blood platelet mean volume measurement 9.8 [foz_us] 7.4-10.4 Automated blood neutrophils/100 leukocytes 66 % 42-75 Automated blood lymphocytes/100 leukocytes 21 % 12-44 Blood monocytes/100 leukocytes 11 % 0-12 Automated blood eosinophils/100 leukocytes 1 % 0-10 Automated blood basophils/100 leukocytes 1 % 0-10 Blood neutrophils automated count (number/volume) 6.7 10*3 1.8-7.8 Blood lymphocytes automated count (number/volume) 2.2 10*3 1.0-4.0 Blood monocytes automated count (number/volume) 1. 1 10*3 0.0-1.0 Automated eosinophil count 0.1 10*3/uL 0 .0-0.3 Automated blood basophil count (count/volume) 0.1 10*3/uL 0.0-0.1 PT panel in platelet poor plasma by coag ulation assay - 01/25/20 14:01 Prothrombin time (PT) in platelet poor plasma by coagu lation assay 13.1 s 12.2-14.7 INR in platelet poor plasma or blood by coagulation as say 1.0 0.8-1.4 Activated partial thromboplastin time (a PTT) in platelet poor plasma bycoagulation assay - 01/25/20 14:01 Activated partial thromboplastin time (a PTT) in platelet poor plasma bycoagulation assay 27 s 24-35 Blood lactic acid measurement (moles/vol ume) - 01/25/20 14:01 Blood lactic acid measurement (moles/volume) 1.49 mmol/L 0.50-2.00 Comprehensive metabolic panel - 01/25/20 14:01 Serum or plasma sodium measurement (moles/volume) 137 mmol/L 135-145 Serum or plasma potassium measurement (moles/volume) 3.7 mmol/L 3.6-5.0 Serum or plasma chloride measurement (moles/volume) 101 mmol/L 98-107 Carbon dioxide 25 mmol/L 21-32 Serum or plasma anion gap determination (moles/volume) 11 mmol/L 5-14 Serum or plasma urea nitrogen measurement (mass/volume ) 14 mg/dL 7-18 Serum or plasma creatinine measurement (mass/volume) 1.06 mg/dL 0.60-1.30 Serum or plasma urea nitrogen/creatinine mass ratio 13 NRG Serum or plasma creatinine measurement w ith calculation of estimated glomerular filtration rate 54 NRG Serum or plasma glucose measurement (mass/volume) 101 mg/dL 70-105 Serum or plasma calcium measurement (mass/volume) 9.8 mg/dL 8.5-10.1 Serum or plasma total bilirubin measurement (mass/volu me) 0.4 mg/dL 0.1-1.0 Serum or plasma alkaline phosphatase chico surement (enzymatic activity/volume) 76 U/L 40-136 Serum or plasma aspartate aminotransfera se measurement (enzymatic activity/volume) 328 U/L 5-34 Serum or plasma alanine aminotransferase measurement (enzymatic activity/volume) 196 U/L 0-55 Serum or plasma protein measurement (mass/volume) 7.8 g/dL 6.4-8.2 Serum or plasma albumin measurement (mass/volume) 4.5 g/dL 3.2-4.5 CALCIUM CORRECTED 9.4 mg/dL 8.5-10.1 Manual absolute plasma cell count - 01/02 04/19 14:01 Blood monocytes/100 leukocytes 14 % NRG Manual blood segmented neutrophils/100 leukocytes 70 % NRG Manual blood lymphocytes/100 leukocytes 15 % NRG Manual eosinophils/100 leukocytes in nose 1 % NRG Blood erythrocyte morphology finding identification NORMAL NRG Bacterial blood culture - 01/25/20 14:01 Bacterial blood culture NG NRG Complete urinalysis with reflex to cultu re - 01/25/20 14:13 Urine color determination YELLOW NRG Urine clarity determination CLEAR NR G Urine pH measurement by test strip 8.0 5-9 Specific gravity of urine by test strip 1.020 1.016-1.022 Urine protein assay by test strip, semi-quantitative 2+ NEGATIVE Urine glucose detection by automated test strip NE GATIVE NEGATIVE Erythrocytes detection in urine sediment by light micr oscopy NEGATIVE NEGATIVE Urine ketones detection by automated test strip NE GATIVE NEGATIVE Urine nitrite detection by test strip NEGATIVE NEGATIVE Urine total bilirubin detection by test strip NEGA TIVE NEGATIVE Urine urobilinogen measurement by automated test strip (mass/volume) 0.2 mg/dL < = 1.0 Urine leukocyte esterase detection by dipstick NEG ATIVE NEGATIVE Automated urine sediment erythrocyte cou nt by microscopy (number/high power field) NONE NRG Automated urine sediment leukocyte count by microscopy (number/high power field) RARE NRG Bacteria detection in urine sediment by light microsco py NEGATIVE NRG Squamous epithelial cells detection in u rine sediment by light microscopy 0-2 NRG Crystals detection in urine sediment by light microsco py NONE NRG Casts detection in urine sediment by light microscopy NONE NRG Mucus detection in urine sediment by light microscopy NEGATIVE NRG Complete urinalysis with reflex to culture NO NRG Bacterial urine culture - 01/25/20 14:13 Bacterial urine culture [id number] NRG COLONY COUNT 20,000 CFU/ML NRG FTX;REPORTABLE SEE COMMENTS NRG FREE TEXT ENTRY 2 PRELIM RAPID ID TEST AT [facility] 01/26 07:00 NRG FREE TEXT ENTRY 3 RML CONFIRMED ID 01/26 16:05 NRG Bacterial blood culture - 01/25/20 14:25 Bacterial blood culture NG NRG Encounters ACCT No. Visit Date/Time Discharge Status Pt. Type Provider Facility Loc./Unit Complaint [id number] 03/29/2019 14:39:44 Document Registration [id number] 03/29/2019 14:09:27 Document Registration [id number] 01/25/2020 12:44:00 16:09:00 DIS Outpatient LOR HERNDON MD [facility] ER FEVER;CHILLS;CH EST CONGESTION;SOA;COUGH;HEADACHE [id number] 11/05/2019 14:55:00 23:59:59 CLS Outpatient SARAH SADLER MD [facility] RAD SCREENING [id number] 08/04/2019 09:42:00 23:59:59 CLS Outpatient Sean DRAKE MD [facility] LAB FAMILIAL HYPERTRIGLYCER DAEMIA [id number] 07/15/2019 00:10:00 23:59:59 CLS Preadmit SARAH SADLER MD [facility] LAB HYPOTHYROIDISM [id number] 04/15/2019 09:30:00 00:01:00 DIS Outpatient SARAH SADLER MD [facility] LAB HYPOTHYROIDISM [id number] 04/22/2019 11:46:00 23:59:59 CLS Preadmit SARAH SADLER MD [facility] RAD SCREENING [id number] 04/04/2019 21:48:00 019 12:04:00 DIS Inpatient SARAH SADLER MD [facility] 4TH FEBRILE ILLNESS, URI [id number] 03/08/2019 12:18:00 019 14:30:00 DIS Emergency ACE POPE MD [facility] ER COUGH;VOMITING;DIZZINES S [id number] 11/16/2018 08:30:00 018 23:59:59 CLS Outpatient PEREZ DO, MALA [facility] RAD CHRONIC SINUSITIS [id number] 10/08/2018 09:06:00 018 12:30:00 DIS Inpatient PEREZ DO, MALA V [facility] 4TH WHEEZING [id number] 08/17/2018 16:07:00 018 23:59:59 CLS Outpatient PEREZ DO, MALA [facility] RT R06.2 WHEEZING [id number] 08/06/2018 16:04:00 018 13:40:00 DIS Inpatient PEREZ DO, MALA V [facility] 4TH FEVER [id number] 07/30/2017 11:37:00 017 23:59:59 CLS Outpatient PEREZ DO, MALA [facility] RAD E04.1 THYROID NODULE [id number] 01/08/2017 15:55:00 017 16:26:00 DIS Emergency CECIL HERNANDEZ [facility] ER HEAD PAIN [id number] 02/19/2016 09:31:00 016 23:59:59 CLS Outpatient NIVIA PENA MD [facility] RAD RUQ PAIN, INCREASED LFT [id number] 10/08/2015 21:36:00 015 13:26:00 DIS Inpatient PEREZ DO, MALA V [facility] 4TH FEVER OF UNKNOWN ORIGIN ,BRONCHITIS [id number] 01/13/2019 12:09:00 01/13/2019 23:59: 00 DIS Outpatient SATHYA BOYLE [id number] 11/13/2018 10:54:00 11/13/2018 23:59: 00 DIS Outpatient Mala Perez [id number] 09/03/2018 14:36:00 09/03/2018 23:59: 00 DIS Outpatient SATHYA BOYLE [id number] 07/06/2018 15:31:00 07/06/2018 23:59: 00 DIS Outpatient Mala Perez [id number] 05/21/2018 13:53:00 05/21/2018 23:59: 00 DIS Outpatient SATHYA BOYLE [id number] 04/15/2018 08:57:00 04/15/2018 23:59: 00 DIS Outpatient Mala Perez [id number] 04/09/2018 14:34:00 04/09/2018 23:59: 00 DIS Outpatient Mala Perez [id number] 02/17/2018 14:24:00 02/17/2018 23:59: 00 DIS Outpatient Mala Perez [id number] 01/02/2018 10:33:00 01/02/2018 23:59: 00 DIS Outpatient SATHYA BOYLE [id number] 10/16/2017 11:38:00 10/16/2017 23:59: 00 DIS Outpatient Mala Perez [id number] 09/09/2017 12:49:00 09/09/2017 23:59: 00 DIS Outpatient Mala Perez [id number] 07/24/2017 09:20:00 07/24/2017 23:59: 00 DIS Outpatient Mala Perez [id number] 07/01/2017 08:59:00 07/01/2017 23:59: 00 DIS Outpatient Jessa Mala [id number] 05/20/2017 10:25:00 05/20/2017 23:59: 00 DIS Outpatient Jessa Mala [id number] 05/07/2017 11:19:00 05/07/2017 23:59: 00 DIS Outpatient Jessa Mala [id number] 04/22/2017 13:47:00 04/22/2017 23:59: 00 DIS Outpatient SATHYA BOYLE [id number] 03/13/2017 12:28:00 03/13/2017 23:59: 00 DIS Outpatient SATHYA BOYLE [id number] 02/07/2017 10:00:00 02/07/2017 23:59: 00 DIS Outpatient SATHYA BOYLE [id number] 01/09/2017 11:34:00 01/09/2017 23:59: 00 DIS Outpatient Mala Perez [id number] 01/07/2017 15:42:00 01/07/2017 23:59: 00 DIS Outpatient Mala Perez [id number] 10/27/2018 10:40:07 Document Registration [id number] 10/16/2017 08:37:00 Document Registration
[2020-05-14] MEDS ORDERED: NS IV 1000 ML 1,000 ML IV SCH (02:27)
[2020-05-14 02:33] LABS: BASOPHILS # (AUTO) 0.1 10^3/uL (0.0-0.1); BASOPHILS % (AUTO) 1 % (0-10); EOSINOPHILS # (AUTO) 0.4 10^3/uL (0.0-0.3); EOSINOPHILS % (AUTO) 3 % (0-10); HEMATOCRIT 32 % (35-52); HEMOGLOBIN 10.8 G/DL (11.5-16.0); LYMPHOCYTES # (AUTO) 5.6 X 10^3 (1.0-4.0); LYMPHOCYTES % (AUTO) 45 % (12-44); MEAN CORPUSCULAR HEMOGLOBIN 31 PG (25-34); MEAN CORPUSCULAR HGB CONC 33 G/DL (32-36); MEAN CORPUSCULAR VOLUME 91 FL (80-99); MEAN PLATELET VOLUME 9.6 FL (7.4-10.4); MONOCYTES # (AUTO) 0.9 X 10^3 (0.0-1.0); MONOCYTES % (AUTO) 7 % (0-12); NEUTROPHILS # (AUTO) 5.6 X 10^3 (1.8-7.8); NEUTROPHILS % (AUTO) 44 % (42-75); PLATELET COUNT 406 10^3/uL (130-400); RED CELL DISTRIBUTION WIDTH 14.1 % (10.0-14.5); WHITE BLOOD COUNT 12.6 10^3/uL (4.3-11.0)
[2020-05-14 02:44] LABS: ALBUMIN 3.8 GM/DL (3.2-4.5); POTASSIUM 3.3 MMOL/L (3.6-5.0); PROTHROMBIN TIME PATIENT 13.4 SEC (12.2-14.7)
[2020-05-14 02:45] LABS: CALCIUM 9.3 MG/DL (8.5-10.1)
[2020-05-14 02:46] LABS: TOTAL PROTEIN 6.4 GM/DL (6.4-8.2)
[2020-05-14 02:48] LABS: BILIRUBIN,TOTAL 0.3 MG/DL (0.1-1.0)
--- NOTE | 2020-05-14 02:48 | ED GI ---
General Chief Complaint: Rect Problems Stated Complaint: RECTAL BLEEDING, NAUSEA Nursing Triage Note: C/O RECTAL BLEEDING X90 MIN S/P COLONOSCOPY WITH POLYP REMOVAL 05/11/2020 Sepsis Screen: No Definite Risk Source of Information: Patient Exam Limitations: No Limitations (REGINA OSHEA,ROSSANA STUDENT) History of Present Illness Date Seen by Provider: May 14, 2020 Time Seen by Provider: 02:25 Initial Comments Mrs. Bowman is a 55 year old female that presents to the emergency department this evening with complaints of rectal bleeding. She had a colonoscopy done on 05/11/20 at [facility] in [place] by Dr. Fonseca. She states she had 2 polyps removed plus one more intervention at that time. She states she had david placed at the sites of removal. Mrs. Bowman denies any pain or bleeding prior to this evening. The bleeding began around midnight this evening. It started as black stool and progressed to bright red blood. She reports a profuse amount. She began to feel light headed and fell of the toilet, she denies any injuries. She denies abdominal pain and shortness of breath at this time but does admit to nausea, dizziness, and light headedness. The colonoscopy was done as a 5 year follow-up but she states all previous colonoscopies were normal. 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 She denies use of any blood thinning medications. Timing/Duration: 1-3 Hours Associated Symptoms: No Fever/Chills; Nausea/Vomiting; No Shortness of Air (REGINA OSHEA,ROSSANA STUDENT) Allergies and Home Medications Allergies Coded Allergies: No Known Drug Allergies (Unverified , 10/08/15) Home Medications Albuterol Sulfate 1.25 Mg/3 Ml Vial.neb, 1.25 MG NEB TID PRN for WHEEZING, (Reported) Atorvastatin Calcium 10 Mg Tablet, 10 MG PO DAILY, (Reported) Fluticasone/Salmeterol 1 Each Blst.w.dev, 1 PUFF INH BID PRN for WHEEZING, (Reported) Lansoprazole 30 Mg Capsule.dr, 30 MG PO DAILY, (Reported) Levothyroxine Sodium 175 Mcg Tablet, 175 MCG PO DAILY, (Reported) Basile-3 Acid Ethyl Esters 1 Gm Capsule, 2 GM PO BID, (Reported) Valacyclovir HCl 1,000 Mg Tablet, 1,000 MG PO DAILY PRN for FLARE UP, (Reported) Patient Home Medication List Home Medication List Reviewed: Yes (REGINA OSHEA MED STUDENT) Review of Systems Review of Systems Constitutional: no symptoms reported EENTM: No Symptoms Reported Respiratory: No Symptoms Reported Cardiovascular: No Symptoms Reported Gastrointestinal: Denies Abdominal Pain; Diarrhea, Nausea, Rectal Bleeding; Denies Vomiting Genitourinary: No Symptoms Reported Musculoskeletal: no symptoms reported Skin: no symptoms reported Psychiatric/Neurological: No Symptoms Reported Endocrine: No Symptoms Reported Hematologic/Lymphatic: No Symptoms Reported (REGINA OSHEA MED STUDENT) Past Miardlv-Esruvt-Rhfhxi Hx Patient Social History Alcohol Use: Occasionally Uses Number of Drinks Today: Alcohol Beverage of Choice: Wine Recreational Drug Use: No Smoking Status: Never a Smoker 2nd Hand Smoke Exposure: No Recent Foreign Travel: No Contact w/Someone Who Travel: No Recent Infectious Disease Expo: No Recent Hopitalizations: No Physical Abuse: No Sexual Abuse: No Mistreated: No Fear: No (REGINA OSHEA MED STUDENT) Immunizations Up To Date Tetanus Booster (TDap): Unknown Date of Pneumonia Vaccine: Aug 31, 2018 Date of Influenza Vaccine: Sep 02, 2018 (REGINA OSHEA MED STUDENT) Seasonal Allergies Seasonal Allergies: No (REGINA OSHEA MED STUDENT) Past Medical History Surgeries: Yes (bone marrow transplant '03, splenectomy, COLONOSCOPY) Abdominal, Gallbladder, Hysterectomy Respiratory: Yes (BRONCHITIS) Pneumonia Currently Using CPAP: No Currently Using BIPAP: No Cardiac: Yes High Cholesterol Neurological: No : No 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, Menopausal Sexually Transmitted Disease: No Genitourinary: No Gastrointestinal: Yes Gastroesophageal Reflux Musculoskeletal: Yes Arthritis Endocrine: Yes Hypothyroidsim HEENT: No Cancer: Yes Leukemia Did You Recieve Any Treatments: Yes What Type of Treatment Did You: Chemotherapy, Radiation Psychosocial: No Integumentary: No Blood Disorders: No Adverse Reaction/Blood Tranf: Yes (high fever) (REGINA OSHEA MED STUDENT) Family Medical History Diabetes mellitus 19 FATHER Hypercholesterolemia 19 FATHER 19 MOTHER G8 SISTER Hypertension (REGINA OSHEA MED STUDENT) Physical Exam Vital Signs Vital Signs - First Documented 05/14/20 02:15 Temp 36.9 Pulse 93 Resp 18 B/P (MAP) 80/52 (61) Pulse Ox 97 O2 Delivery Room Air (ELIAZAR CASTELAN MD) Vital Signs Capillary Refill : Less Than 3 Seconds (REGINA OSHEA,MED STUDENT) Height/Weight/BMI Height: 5'4.00" Weight: 164lbs. 5.0oz. 74.950942td; 30.00 BMI Method:Stated General Appearance: WD/WN, no apparent distress HEENT: PERRL/EOMI Respiratory: chest non-tender, lungs clear, normal breath sounds, no respiratory distress, no accessory muscle use Cardiovascular: regular rate, rhythm, no murmur Peripheral Pulses: 2+ Radial Pulses (R), 2+ Radial Pulses (L) Gastrointestinal: normal bowel sounds, non tender, soft, no organomegaly; No guarding, No rebound Extremities: no pedal edema, no calf tenderness Neurologic/Psychiatric: alert, normal mood/affect, oriented x 3 Skin: warm/dry (REGINA OSHEA,MED STUDENT) Progress/Results/Core Measures Results/Orders Lab Results Laboratory Tests Test 05/14/20 02:25 05/14/20 02:45 Range/Units White Blood Count 12.6 H 4.3-11.0 10^3/uL Red Blood Count 3.54 L 4.35-5.85 10^6/uL Hemoglobin 10.8 L 11.5-16.0 G/DL Hematocrit 32 L 35-52 % Mean Corpuscular Volume 91 80-99 FL Mean Corpuscular Hemoglobin 31 25-34 PG Mean Corpuscular Hemoglobin Concent 33 32-36 G/DL Red Cell Distribution Width 14.1 10.0-14.5 % Platelet Count 406 H 130-400 10^3/uL Mean Platelet Volume 9.6 7.4-10.4 FL Neutrophils (%) (Auto) 44 42-75 % Lymphocytes (%) (Auto) 45 H 12-44 % Monocytes (%) (Auto) 7 0-12 % Eosinophils (%) (Auto) 3 0-10 % Basophils (%) (Auto) 1 0-10 % Neutrophils # (Auto) 5.6 1.8-7.8 X 10^3 Lymphocytes # (Auto) 5.6 H 1.0-4.0 X 10^3 Monocytes # (Auto) 0.9 0.0-1.0 X 10^3 Eosinophils # (Auto) 0.4 H 0.0-0.3 10^3/uL Basophils # (Auto) 0.1 0.0-0.1 10^3/uL Prothrombin Time 13.4 12.2-14.7 SEC INR Comment 1.0 0.8-1.4 Sodium Level 132 L 135-145 MMOL/L Potassium Level 3.3 L 3.6-5.0 MMOL/L Chloride Level 99 98-107 MMOL/L Carbon Dioxide Level 17 L 21-32 MMOL/L Anion Gap 16 H 5-14 MMOL/L Blood Urea Nitrogen 24 H 7-18 MG/DL Creatinine 1.50 H 0.60-1.30 MG/DL Estimat Glomerular Filtration Rate 36 BUN/Creatinine Ratio 16 Glucose Level 182 H 70-105 MG/DL Calcium Level 9.3 8.5-10.1 MG/DL Corrected Calcium 9.5 8.5-10.1 MG/DL Phosphorus Level 4.4 2.3-4.7 MG/DL Magnesium Level 1.3 L 1.6-2.4 MG/DL Total Bilirubin 0.3 0.1-1.0 MG/DL Aspartate Amino Transf (AST/SGOT) 95 H 5-34 U/L Alanine Aminotransferase (ALT/SGPT) 100 H 0-55 U/L Alkaline Phosphatase 52 40-136 U/L C-Reactive Protein High Sensitivity 0.32 0.00-0.50 MG/DL Total Protein 6.4 6.4-8.2 GM/DL Albumin 3.8 3.2-4.5 GM/DL Urine Color YELLOW Urine Clarity CLEAR Urine pH 5.5 5-9 Urine Specific [place] 1.025 H 1.016-1.022 Urine Protein TRACE H NEGATIVE Urine Glucose (UA) NEGATIVE NEGATIVE Urine Ketones TRACE H NEGATIVE Urine Nitrite NEGATIVE NEGATIVE Urine Bilirubin NEGATIVE NEGATIVE Urine Urobilinogen 0.2 < = 1.0 MG/DL Urine Leukocyte Esterase NEGATIVE NEGATIVE Urine RBC (Auto) NEGATIVE NEGATIVE Urine RBC NONE /HPF Urine WBC NONE /HPF Urine Squamous Epithelial Cells 5-10 /HPF Urine Crystals NONE /LPF Urine Bacteria TRACE /HPF Urine Casts PRESENT /LPF Urine Hyaline Casts 10-25 H /LPF Urine Mucus SMALL H /LPF Urine Culture Indicated NO (ELIAZAR CASTELAN MD) My Orders Orders - ELIAZAR CASTELAN MD Cbc With Automated Diff (05/14/20 02:25) Comprehensive Metabolic Panel (05/14/20 02:25) Hs C Reactive Protein (05/14/20 02:25) Protime With Inr (05/14/20 02:25) Ed Iv/Invasive Line Start (05/14/20 02:25) Ua Culture If Indicated (05/14/20 02:25) Ns Iv 1000 Ml (Sodium Chloride 0.9%) (05/14/20 02:27) Red Cells Leukocytes Reduced (05/14/20 02:31) Type And Screen (05/14/20 02:31) Lactated Ringers (Lr 1000 Ml Iv Solution (05/14/20 03:05) (ELIAZAR CASTELAN MD) Medications Given in ED Current Medications Medications Dose Ordered Sig/Dahlia Route Start Time Stop Time Status Last Admin Dose Admin Lactated Ringer's 1,000 ml @ 0 mls/hr Q0M ONCE IV 05/14/20 03:05 05/14/20 03:06 DC 05/14/20 03:10 0 MLS/HR (ELIAZAR CASTELAN MD) Vital Signs/I&O 05/14/20 02:15 Temp 36.9 Pulse 93 Resp 18 B/P (MAP) 80/52 (61) Pulse Ox 97 O2 Delivery Room Air (ELIAZAR CASTELAN MD) Blood Pressure Mean: 61 Departure Communication (Admissions) Time/Spoke to Admitting Phy: 03:45 Dr. Castellano Time/Spoke to Consulting Phy: 03:20 Dr. Garcia (ELIAZAR CASTELAN MD) Impression Primary Impression: Rectal bleed Additional Impression: Hypotension Qualified Codes: I95.89 - Other hypotension; E86.1 - Hypovolemia Disposition: ADMITTED INPATIENT Condition: Improved Admissions Decision to Admit Reason: Admit from ER (General) Decision to Admit/Date: May 14, 2020 Time/Decision to Admit Time: 02:30 (ELIAZAR CASTELAN MD) Departure-Patient Inst. Decision time for Depature: 02:30 (ELIAZAR CASTELAN MD) Referrals: SARAH SADLER MD (PCP/Family) Primary Care Physician I personally interviewed and examined this patient along with SONIA Brandt. I agree with her history, physical, assessment, and documentation. Patient's blood pressure was resuscitated with 2 L of IV fluid. Dr. Garcia was consulted and presented to the ER to evaluate the patient. She will be admitted with colonoscopy anticipated later this morning. Exam: Gen.: Alert, oriented, no acute distress HEENT: Normocephalic and atraumatic, mucous membranes moist Heart: Regular rate and rhythm without murmur Lungs: Clear to auscultation bilaterally with normal effort Abdomen: Soft, nondistended, nontender. (ELIAZAR CASTELAN MD) REGINA OSHEA,MED STUDENT May 14, 2020 02:48 ELIAZAR CASTELAN MD May 14, 2020 03:52
[2020-05-14 02:50] LABS: CREATININE SERUM 1.5 MG/DL (0.60-1.30)
--- NOTE | 2020-05-14 02:54 | NUR ---
DR MCKINLEY HERE SEEING PATIENT
[2020-05-14] MEDS ORDERED: LACTATED RINGERS 1,000 ML IV ONE ×2 (03:05→08:21)
[2020-05-14 03:24] LABS: BILIRUBIN,URINE NEGATIVE (NEGATIVE); CLARITY,URINE CLEAR; COLOR,URINE YELLOW; GLUCOSE, URINE (UA) NEGATIVE (NEGATIVE); KETONES,URINE TRACE (NEGATIVE); LEUKOCYTE ESTERASE ,URINE NEGATIVE (NEGATIVE); NITRITE,URINE NEGATIVE (NEGATIVE); PH,URINE 5.5 (5-9); PROTEIN,URINE TRACE (NEGATIVE)
[2020-05-14 03:38] LABS: BACTERIA,URINE TRACE /HPF
--- OUTSIDE RECORDS SUMMARY | 2020-05-14 04:29 | XMS REPORT | Continuity of Care Document ---
Demographics Preferred Language Unknown Marital Status Unknown Anabaptist Affiliation Unknown Race Unknown Ethnic Group Unknown Author Organization Unknown Address Unknown Phone Unavailable Allergies Active Description Code Type Severity Reaction Onset Reported/Identified Relationship to Patient Clinical Status Yes CODEINE [id number] DRUG N/A N/A Yes NO KNOWN DRUG ALLERGIES UNKNOWN NO KNOWN DRUG ALLERG Yes NO KNOWN DRUG ALLERGIES UNKNOWN UNKNOWN Yes No Known Drug Allergies [id number] Drug Allergy Unknown N/A 10/08/2015 Medications There [...] RESULTS OF FUNCTION STUDY OF LIVER 10/16/2017 Chairty Perezi W E78.0 PURE HYPERCHOLESTEROLEMIA 10/16/2017 Mala [...] MALA PEREZ DO Ot R06.2 WHEEZING 03/08/2019 MLAA PEREZ DO Ot J32.9 CHRONIC SINUSITIS, UNSPECIFIED [...] 03/08/2019 ACE POPE MD Ot 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 52 FIELD MARKETING REPRESENTATIVE (CURRENT) USE OF SYSTEMIC STER 03/08/2019 ACE [...] BONE MARROW TRANSPLANT STATUS 05/12/2019 SADLER MD, SARAH D Ot E03. 9 HYPOTHYROIDISM, UNSPECIFIED 05/12/2019 [...] Ot E88. 81 METABOLIC SYNDROME 01/25/2020 VIDAL STORYE, M RADHA Ot E66 .3 OVERWEIGHT 01/25/2020 [...] ENZYMES 01/28/2020 LOR HERNDON MD, Ot Z79.51 CORRECTION (CURRENT) USE OF INHALED STERO 01/28/2020 LOR HERNDON MD, Ot Z82.49 FAMILY HX OF ISCHEM HEART DIS AND OTH DI 01/28/2020 LOR HERNDON MD, Ot Z85.6 PERSONAL HISTORY OF LEUKEMIA 01/28/2020 LOR HERNDON MD, Ot 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 Procedures Code Description Performed By Per formed On [id number] DR ZARAGOZA OF SPINAL CANAL, PERCUTANEOUS A [...] [facility] Complete blood count (CBC) with automate [...] culture - 08/06/18 17:12 Bacterial blood culture [facility] Influenza virus A and B antigen detectio n - 08/06/18 18:00 FLU RESULT NEGATIVE FOR INFLUENZA A AND B ANTIGENS BY IA [facility] Blood lactic acid measurement (moles/vol ume) - 08/06/18 18:00 Blood lactic acid measurement (moles/volume) 1.97 mmol/L 0.50-2.00 Sputum Gram stain - 08/06/18 18:00 Sputum Gram stain REPORTED 08-07-2018, 1705. [facility] Bacterial sputum culture - 08/06/18 18:0 0 Bacterial sputum culture NORMAL [facility] Complete blood count (CBC) with automate d [...] 16:13 Sputum Gram stain Mixed Bacterial Dawna [facility] Bacterial sputum culture - 10/06/18 16:1 3 QUANTITY OF GROWTH . [facility] Bacterial sputum culture USUAL RESP [facility] Influenza virus A and B antigen detectio n - 10/06/18 16:40 FLU RESULT NEGATIVE FOR INFLUENZA A AND B ANTIGENS BY IA [facility] Bacterial blood culture - 10/06/18 17:30 Bacterial blood culture NG [facility] Complete blood count (CBC) with automate d [...] by light microscopy S LIGHT NRG Blood Thakkar-Chaplin bodies detection by light microscop y SLIGHT [...] 34.8 g/dL 32.0-36.0 MCV 96.3 fL 80.0-97.0 [place]% 16.0 % 0.0-12.0 MPV 11.5 fL 7.4-10.0 [place]% 54.5 % 37.0-80.0 Plt 414 K/uL 150-400 RBC 4.36 M/uL 3.60-5.00 RDW 14.3 % 11.6-14.8 WBC 9.72 K/uL 5.00-10.00 Wayne 5.29 K/uL 2.00-6.90 [place] 1.6 K/uL 0.0-0.9 Baso 0.1 K/uL 0.0-0.2 [...] INFLUENZA A AND B ANTIGENS BY IA [facility] Comprehensive metabolic panel - 03/08/19 13:10 Serum [...] or plasma urea nitrogen/creatinine mass ratio 12 [facility] Serum or plasma creatinine measurement w ith calculation of estimated glomerular filtration rate 58 [facility] Serum or plasma glucose measurement (mass/volume) 100 [...] BACTERIA OBS ERVED ON DIRECT GRAM STAIN. [facility] Bacterial cerebrospinal fluid culture - 04/04/19 20:45 FREE TEXT EXTERNAL SUSCEPTIBILITY REPORTED 04/07/19 07:05 NRG QUANTITY OF GROWTH Rare NRG Bacterial cerebrospinal fluid culture [id number] [facility] RML Sensitivity Panel - 04/04/19 20:45 Oxacillin [...] IgG antibody assay (units/ volume) < <1:16 Sunset spotted fever panel < <1:10 Francisella tularensis antibody assay <1:20 [facility] LYME AB G M < 0.01 0.00-0.89 Interpretation of Lyme disease antibody assay Nega tive Negative Influenza virus A and B antigen detectio n - 04/06/19 11:03 FLU RESULT NEGATIVE FOR INFLUENZA A AND B ANTIGENS BY IA [facility] Lipid 1996 panel - 04/15/19 09:43 Serum [...] FOR INFLUENZA A AND B ANTIGENS BY [facility] Complete blood count (CBC) with automate d [...] culture - 01/25/20 14:13 Bacterial urine culture [id number] NRG COLONY COUNT 20,000 CFU/ML NRG FTX;REPORTABLE SEE COMMENTS NRG FREE TEXT ENTRY 2 PRELIM RAPID ID TEST AT [facility] 01/26 07:00 NRG FREE TEXT ENTRY 3 RML CONFIRMED ID 01/26 16:05 NRG Bacterial blood culture - 01/25/20 14:25 Bacterial blood culture NG NRG Complete blood count (CBC) with automate d white blood cell (WBC) differential - 05/14/20 02:25 Blood leukocytes automated count (number/volume) 12.6 10*3/uL 4.3-11.0 Blood erythrocytes automated count (number/volume) 3.54 10*6/uL 4.35-5.85 Venous blood hemoglobin measurement (mass/volume) 10.8 g/dL 11.5-16.0 Blood hematocrit (volume fraction) 32 % 35-52 Automated erythrocyte mean corpuscular volume 91 [ foz_us] 80-99 Automated erythrocyte mean corpuscular h emoglobin (mass per erythrocyte) 31 pg 25-34 Automated erythrocyte mean corpuscular h emoglobin concentration measurement (mass/volume) 33 g/dL 32-36 Automated erythrocyte distribution width ratio 14. 1 % 10.0- 14.5 Automated blood platelet count (count/volume) 406 10*3/uL 130-400 Automated blood platelet mean volume measurement 9.6 [foz_us] 7.4-10.4 Automated blood neutrophils/100 leukocytes 44 % 42-75 Automated blood lymphocytes/100 leukocytes 45 % 12-44 Blood monocytes/100 leukocytes 7 % 0-12 Automated blood eosinophils/100 leukocytes 3 % 0-10 Automated blood basophils/100 leukocytes 1 % 0-10 Blood neutrophils automated count (number/volume) 5.6 10*3 1.8-7.8 Blood lymphocytes automated count (number/volume) 5.6 10*3 1.0-4.0 Blood monocytes automated count (number/volume) 0. 9 10*3 0.0-1.0 Automated eosinophil count 0.4 10*3/uL 0 .0-0.3 Automated blood basophil count (count/volume) 0.1 10*3/uL 0.0-0.1 Comprehensive metabolic panel - 05/14/20 02:25 Serum or plasma sodium measurement (moles/volume) 132 mmol/L 135-145 Serum or plasma potassium measurement (moles/volume) 3.3 mmol/L 3.6-5.0 Serum or plasma chloride measurement (moles/volume) 99 mmol/L 98-107 Carbon dioxide 17 mmol/L 21-32 Serum or plasma anion gap determination (moles/volume) 16 mmol/L 5-14 Serum or plasma urea nitrogen measurement (mass/volume ) 24 mg/dL 7-18 Serum or plasma creatinine measurement (mass/volume) 1.50 mg/dL 0.60-1.30 Serum or plasma urea nitrogen/creatinine mass ratio 16 NRG Serum or plasma creatinine measurement w ith calculation of estimated glomerular filtration rate 36 NRG Serum or plasma glucose measurement (mass/volume) 182 mg/dL 70-105 Serum or plasma calcium measurement (mass/volume) 9.3 mg/dL 8.5-10.1 Serum or plasma total bilirubin measurement (mass/volu me) 0.3 mg/dL 0.1-1.0 Serum or plasma alkaline phosphatase ch[place] surement (enzymatic activity/volume) 52 U/L 40-136 Serum or plasma aspartate aminotransfera se measurement (enzymatic activity/volume) 95 U/L 5-34 Serum or plasma alanine aminotransferase measurement (enzymatic activity/volume) 100 U/L 0-55 Serum or plasma protein measurement (mass/volume) 6.4 g/dL 6.4-8.2 Serum or plasma albumin measurement (mass/volume) 3.8 g/dL 3.2-4.5 CALCIUM CORRECTED 9.5 mg/dL 8.5-10.1 Serum or plasma C reactive protein measu rement (mass/volume) - 05/14/20 02:25 Serum or plasma C reactive protein measurement (mass/v olume) 0.32 mg/dL 0.00-0.50 PT panel in platelet poor plasma by coag ulation assay - 06/14/20 02:25 Prothrombin time (PT) in platelet poor plasma by coagu lation assay 13.4 s 12.2-14.7 INR in platelet poor plasma or blood by coagulation as say 1.0 0.8-1.4 RED CELLS LEUKO REDUCED AS1 - 05/14/20 0 2:25 RED CELLS LEUKO REDUCED AS1 R DAILY NRG Blood type T Indirect antibody screen pa reese - 05/14/20 02:25 WRISTBAND NUMBER [id number] NRG ABO+Rh group ON NRG Blood group antibody screen NEGATIVE NR G Complete urinalysis with reflex to cultu re - 05/14/20 02:45 Urine color determination YELLOW NRG Urine clarity determination CLEAR NR G Urine pH measurement by test strip 5.5 5-9 Specific gravity of urine by test strip 1.025 1.016-1.022 Urine protein assay by test strip, semi-quantitative TRACE NEGATIVE Urine glucose detection by automated test strip NE GATIVE NEGATIVE Erythrocytes detection in urine sediment by light micr oscopy NEGATIVE NEGATIVE Urine ketones detection by automated test strip TR CARROLL NEGATIVE Urine nitrite detection by test strip [...] in u rine sediment by light microscopy 5-10 NRG Crystals detection in urine sediment by light microsco py NONE NRG Casts detection in urine sediment by light microscopy PRESENT NRG Mucus detection in urine sediment by light microscopy SMALL NRG Complete urinalysis with reflex to culture NO NRG Hyaline casts detection in urine sediment by light samuel roscopy 10-25 NRG Encounters ACCT No. Visit Date/Time Discharge Status Pt. Type Provider Facility Loc./Unit Complaint [id number] 03/29/2019 14:39:44 Document Registration [id number] 03/29/2019 14:09:27 Document Registration [id number] 01/25/2020 12:44:00 020 16:09:00 DIS Outpatient KATRINA STOREY, LOR Voss [facility] ER FEVER;CHILLS;CH EST CONGESTION;SOA;COUGH;HEADACHE [id number] 11/05/2019 14:55:00 23:59:59 CLS Outpatient SARAH SADLER MD [facility] RAD SCREENING [id number] 08/04/2019 09:42:00 23:59:59 CLS Outpatient Sean DRAKE MD [facility] LAB FAMILIAL HYPERTRIGLYCER DAEMIA [id number] 07/15/2019 00:10:00 23:59:59 CLS Preadmit SARAH SADLER MD [facility] LAB HYPOTHYROIDISM [id number] 04/15/2019 09:30:00 00:01:00 DIS Outpatient SARAH SADLER MD [facility] HYPOTHYROIDISM [id number] 04/22/2019 11:46:00 23:59:59 CLS Preadmit SARAH SADLER MD [facility] RAD SCREENING [id number] 04/04/2019 21:48:00 12:04:00 DIS Inpatient SARAH SADLER MD [facility] 4TH FEBRILE ILLNESS, URI [id number] 03/08/2019 12:18:00 14:30:00 DIS Emergency ACE POPE MD [facility] ER COUGH;VOMITING;DIZZINES S [id number] 11/16/2018 08:30:00 018 23:59:59 CLS Outpatient MALA PEREZ DO [facility] RAD CHRONIC SINUSITIS [id number] 10/08/2018 09:06:00 12:30:00 DIS Inpatient MALA PEREZ DO V [facility] 4TH WHEEZING [id number] 08/17/2018 16:07:00 018 23:59:59 CLS Outpatient MALA PEREZ DO [facility] RT R06.2 WHEEZING [id number] 08/06/2018 16:04:00 018 13:40:00 DIS Inpatient PEREZ , MALA V [facility] 4TH FEVER [id number] 07/30/2017 11:37:00 017 23:59:59 CLS Outpatient MALA PEREZ DO [facility] RAD E04.1 THYROID NODULE [id number] 01/08/2017 15:55:00 017 16:26:00 DIS Emergency CECIL HERNANDEZ [facility] ER HEAD PAIN [id number] 02/19/2016 09:31:00 016 23:59:59 CLS Outpatient BECKY STOREY, NIVIA Feliz [facility] RAD RUQ PAIN, INCREASED LFT [id number] 10/08/2015 21:36:00 015 13:26:00 DIS Inpatient PEREZ DO MALA V [facility] 4TH FEVER OF UNKNOWN ORIGIN ,BRONCHITIS [id number] 05/14/2020 02:35:00 Document Registration [id number] 01/13/2019 12:09:00 01/13/2019 23:59: 00 DIS Outpatient SATHYA BOYLE [id number] 11/13/2018 10:54:00 11/13/2018 23:59: 00 DIS Outpatient Mala Perez [id number] 09/03/2018 14:36:00 09/03/2018 23:59: 00 DIS Outpatient SATHYA BOYLE [id number] 07/06/2018 15:31:00 07/06/2018 23:59: 00 DIS Outpatient Mala Perez [id number] 05/21/2018 13:53:00 05/21/2018 23:59: 00 DIS Outpatient SATHYA BOYLE [id number] 04/15/2018 08:57:00 04/15/2018 23:59: 00 DIS Outpatient Mala Perez [id number] 04/09/2018 14:34:00 04/09/2018 23:59: 00 DIS Outpatient Mala Perez [id number] 02/17/2018 14:24:00 02/17/2018 23:59: 00 DIS Outpatient Mala Perez [id number] 01/02/2018 10:33:00 01/02/2018 23:59: 00 DIS Outpatient SATHYA BOYLE [id number] 10/16/2017 11:38:00 10/16/2017 23:59: 00 DIS Outpatient Mala Perez [id number] 09/09/2017 12:49:00 09/09/2017 23:59: 00 DIS Outpatient Mala Perez [id number] 07/24/2017 09:20:00 07/24/2017 23:59: 00 DIS Outpatient Mala Perez [id number] 07/01/2017 08:59:00 07/01/2017 23:59: 00 DIS Outpatient Mala Perez [id number] 05/20/2017 10:25:00 05/20/2017 23:59: 00 DIS Outpatient Mala Perez [id number] 05/07/2017 11:19:00 05/07/2017 23:59: 00 DIS Outpatient Mala Perez [id number] 04/22/2017 13:47:00 04/22/2017 23:59: 00 DIS Outpatient SATHYA BOYLE [id number] 03/13/2017 12:28:00 03/13/2017 23:59: 00 DIS Outpatient SATHYA BOYLE [id number] 02/07/2017 10:00:00 02/07/2017 23:59: 00 DIS Outpatient SATHYA BOYLE [id number] 01/09/2017 11:34:00 01/09/2017 23:59: 00 DIS Outpatient Mala Perez [id number] 01/07/2017 15:42:00 01/07/2017 23:59: 00 DIS Outpatient Mala Perez [id number] 10/27/2018 10:40:07 Document Registration [id number] 10/16/2017 08:37:00 Document Registration
--- NOTE | 2020-05-14 05:00 | NUR ---
NUMBER CALLED [phone] MESSAGE LEFT PT WAS ADMITTED.
--- NOTE | 2020-05-14 05:10 | NUR ---
THIS TRUCK SWITCHER/RN ANSWERED THE ER TELEPHONE AND PT SON IDENTIFIED HIMSELF AND BEGAN YELLING, "I'M PUJA WOLF SON AND WE'VE BEEN OUT HERE WAITING FOR 2 FUCKING HOURS AND WE NEED TO GET SOME INFORMATION RIGHT FUCKING NOW!" PT SON WAS INFORMED THIS TRUCK SWITCHER/RN WOULD NOT SPEAK TO HIM IF HE CONTINUED TO CUSS AND YELL. PT SON STATES, "THIS IS FUCKING RIDICULOUS, ARE YOU SERIOUS?" THIS TRUCK SWITCHER/RN HUNG UP THE TELEPONE AT THIS TIME.
[2020-05-14 05:19] LABS: MAGNESIUM 1.3 MG/DL (1.6-2.4); PHOSPHORUS 4.4 MG/DL (2.3-4.7)
[2020-05-14] MEDS: LACTATED RINGERS 1,000 ML IV SCH ×2 (05:32→09:00)
[2020-05-14] MEDS: POTASSIUM CL 10MEQ/50ML IVPB 50 ML IV SCH ×4 (05:32→11:43)
[2020-05-14] MEDS: MAGNESIUM 1 GM/100 ML IVPB 100 ML IV SCH ×4 (05:35→11:43)
[2020-05-14] MEDS ORDERED: ONDANSETRON 4 MG/2 ML (SDV) Z0FRAN IV PRN (05:45)
[2020-05-14] MEDS ORDERED: POTASSIUM CL 10MEQ/50ML IVPB 50 ML IV SCH (06:00)
[2020-05-14] MEDS ORDERED: KCL 20 MEQ TAB (K-DUR) PO SCH (06:00)
[2020-05-14] MEDS ORDERED: MAGNESIUM 1 GM/100 ML IVPB 100 ML IV SCH (06:00)
[2020-05-14 08:21] LABS: ALBUMIN 3.7 GM/DL (3.2-4.5); BILIRUBIN,TOTAL 0.3 MG/DL (0.1-1.0); CALCIUM 9.4 MG/DL (8.5-10.1); CREATININE SERUM 1.09 MG/DL (0.60-1.30); POTASSIUM 4.4 MMOL/L (3.6-5.0); TOTAL PROTEIN 6.2 GM/DL (6.4-8.2)
[2020-05-14] MEDS ORDERED: PROPOFOL INJECTION 50 ML IV ONE (09:08)
[2020-05-14] MEDS ORDERED: MIDAZOLAM 2 MG/2 ML (VERSED) VIAL ONE (09:08)
--- NOTE | 2020-05-14 09:16 | Consultation - Surgery ---
History of Present Illness History of Present Illness Patient Consulted On(radha/time) 05/14/20 09:07 Time Seen by Provider: 03:01 History of Present Illness Surgery asked to consult regarding rectal bleed. HPI per ED: Mrs. Bowman is a 55 year old female that presents to the emergency department this evening with complaints of rectal bleeding. She had a colonoscopy done on 05/11/20 at [facility] in [place] by Dr. Fonseca. She states she had 2 polyps removed plus one more intervention at that time. She states she had david placed at the sites of removal. Mrs. Bowman denies any pain or bleeding prior to this evening. The bleeding began around midnight this evening. It started as black stool and progressed to bright red blood. She reports a profuse amount. She began to feel light headed and fell of the toilet, she denies any injuries. She denies abdominal pain and shortness of breath at this time but does admit to nausea, dizziness, and light headedness. The colonoscopy was done as a 5 year follow-up but she states all previous colonoscopies were normal. 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 She denies use of any blood thinning medications. When I spoke to pt she stated she had not bled until just before she came in; states this has never happened before, "it was a lot". She said her mother told her the GI doctor had to "staple a couple of things". Pt denied abdominal pain. Allergies and Home Medications Allergies Coded Allergies: No Known Drug Allergies (Unverified , 10/08/15) Home Medications Albuterol Sulfate 1.25 Mg/3 Ml Vial.neb, 1.25 MG NEB TID PRN for WHEEZING, (Reported) Atorvastatin Calcium 10 Mg Tablet, 10 MG PO DAILY, (Reported) Fluticasone/Salmeterol 1 Each Blst.w.dev, 1 PUFF INH BID PRN for WHEEZING, (Reported) Lansoprazole 30 Mg Capsule.dr, 30 MG PO DAILY, (Reported) Levothyroxine Sodium 175 Mcg Tablet, 175 MCG PO DAILY, (Reported) [place]-3 Acid Ethyl Esters 1 Gm Capsule, 2 GM PO BID, (Reported) Valacyclovir HCl 1,000 Mg Tablet, 1,000 MG PO DAILY PRN for FLARE UP, (Reported) Patient Home Medication List Home Medication List Reviewed: Yes Past Qsoaecj-Bcilil-Alkbwa Hx Patient Social History Alcohol Use: Occasionally Uses Number of Drinks Today: Recreational Drug Use: No Smoking Status: Never a Smoker 2nd Hand Smoke Exposure: No Recent Foreign Travel: No Contact w/Someone Who Travel: No Recent Infectious Disease Expo: No Recent Hopitalizations: No Immunizations Up To Date Tetanus Booster (TDap): Unknown Date of Pneumonia Vaccine: Aug 31, 2018 Date of Influenza Vaccine: Sep 02, 2018 Seasonal Allergies Seasonal Allergies: No Surgeries History of Surgeries: Yes (bone marrow transplant '03, splenectomy, COLONOSCOPY) Surgeries: Abdominal, Gallbladder, Hysterectomy Respiratory History of Respiratory Disorde: Yes (BRONCHITIS) Respiratory Disorders: Pneumonia Cardiovascular History of Cardiac Disorders: Yes Cardiac Disorders: High Cholesterol Neurological History of Neurological Disord: No Reproductive System : No Hx Reproductive Disorders: No Sexually Transmitted Disease: No WELL BLOWER History: Hysterectomy, Menopausal Genitourinary History of Genitourinary Disor: No Gastrointestinal History of Gastrointestinal Di: Yes Gastrointestinal Disorders: Gastroesophageal Reflux Musculoskeletal History of Musculoskeletal Dis: Yes Musculoskeletal Disorders: Arthritis Endocrine History of Endocrine Disorders: Yes Endocrine Disorders: Hypothyroidsim HEENT History of HEENT Disorders: No Cancer History of Cancer: Yes Cancer: Leukemia Psychosocial History of Psychiatric Problem: No Integumentary History of Skin or Integumenta: No Blood Transfusions History of Blood Disorders: No Adverse Reaction to a Blood Tr: Yes (high fever) Family Medical History Significant Family History: Diabetes, Hypertension Family Medial History: Diabetes mellitus 19 FATHER Hypercholesterolemia 19 FATHER 19 MOTHER G8 SISTER Review of Systems-General Constitutional: No chills, No diaphoresis; weakness EENTM: No blurred vision, No double vision, No mouth pain, No mouth swelling, No epistaxis Respiratory: No dyspnea on exertion, No hemoptysis, No short of breath Cardiovascular: No chest pain, No edema, No palpitations Gastrointestinal: No abdominal pain, No hematemesis, No nausea, No vomiting Genitourinary: No dysuria, No frequency, No hematuria Musculoskeletal: joint pain, joint swelling; No muscle pain; other (joint stiffness) Skin: No change in color, No change in hair/nails Psychiatric/Neurological: Denies Anxiety, Denies Depressed, Denies Seizure, Denies Tremors Physical Exam-General Problems Physical Exam Vital Signs Vital Signs - First Documented 05/14/20 02:15 Temp 36.9 Pulse 93 Resp 18 B/P (MAP) 80/52 (61) Pulse Ox 97 O2 Delivery Room Air Capillary Refill : Less Than 3 Seconds General Appearance: WD/WN, no apparent distress Eyes: Bilateral Eye PERRL, Bilateral Eye EOMI HEENT: pharynx normal; No scleral icterus (R), No scleral icterus (L) Neck: non-tender, supple Respiratory: chest non-tender, lungs clear, normal breath sounds, no respiratory distress, no accessory muscle use Cardiovascular: regular rate, rhythm, no edema, no murmur Gastrointestinal: normal bowel sounds, non tender, soft, no organomegaly, no pulsatile mass Back: no CVA tenderness, no vertebral tenderness Extremities: normal range of motion, non-tender, normal inspection, no pedal edema, no calf tenderness 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 nml as tested, no motor/sensory deficits, alert, normal mood/affect, oriented x 3 Skin: normal color, warm/dry Lymphatic: no adenopathy (neck, axilla or groin) Data Review Labs Laboratory Tests 05/14/20 02:25: White Blood Count 12.6H, Red Blood Count 3.54L, Hemoglobin 10.8L, Hematocrit 32L , Mean Corpuscular Volume 91, Mean Corpuscular Hemoglobin 31, Mean Corpuscular Hemoglobin Concent 33, Red Cell Distribution Width 14.1, Platelet Count 406H, Mean Platelet Volume 9.6, Neutrophils (%) (Auto) 44, Lymphocytes (%) (Auto) 45H, Monocytes (%) (Auto) 7, Eosinophils (%) (Auto) 3, Basophils (%) (Auto) 1, Neutrophils # (Auto) 5.6, Lymphocytes # (Auto) 5.6H, Monocytes # (Auto) 0.9, Eosinophils # (Auto) 0.4H, Basophils # (Auto) 0.1, Prothrombin Time 13.4, INR Comment 1.0, Sodium Level 132L, Potassium Level 3.3L, Chloride Level 99, Carbon Dioxide Level 17L, Anion Gap 16H, Blood Urea Nitrogen 24H, Creatinine 1.50H, Estimat Glomerular Filtration Rate 36, BUN/Creatinine Ratio 16, Glucose Level 182H, Calcium Level 9.3, Corrected Calcium 9.5, Phosphorus Level 4.4, Magnesium Level 1.3L, Total Bilirubin 0.3, Aspartate Amino Transf (AST/SGOT) 95H, Alanine Aminotransferase (ALT/SGPT) 100H, Alkaline Phosphatase 52, C-Reactive Protein High Sensitivity 0.32, Total Protein 6.4, Albumin 3.8 05/14/20 02:45: Urine Color YELLOW, Urine Clarity CLEAR, Urine pH 5.5, Urine Specific [place] 1.025H, Urine Protein TRACEH, Urine Glucose (UA) NEGATIVE, Urine Ketones TRACEH, Urine Nitrite NEGATIVE, Urine Bilirubin NEGATIVE, Urine Urobilinogen 0.2, Urine Leukocyte Esterase NEGATIVE, Urine RBC (Auto) NEGATIVE, Urine RBC NONE, Urine WBC NONE, Urine Squamous Epithelial Cells 5-10, Urine Crystals NONE, Urine Bacteria TRACE, Urine Casts PRESENT, Urine Hyaline Casts 10-25H, Urine Mucus SMALLH, Urine Culture Indicated NO 05/14/20 07:50: Sodium Level 137, Potassium Level 4.4, Chloride Level 105, Carbon Dioxide Level 21, Anion Gap 11, Blood Urea Nitrogen 22H, Creatinine 1.09, Estimat Glomerular Filtration Rate 52, BUN/Creatinine Ratio 20, Glucose Level 141H, Calcium Level 9.4, Corrected Calcium 9.6, Total Bilirubin 0.3, Aspartate Amino Transf (AST/SGOT) 82H, Alanine Aminotransferase (ALT/SGPT) 90H, Alkaline Phosphatase 54, Total Protein 6.2L, Albumin 3.7 Assessment/Plan Assessment/Plan Assessment/Plan Anemia Rectal bleed with hx of recent procedure Hypotension Pt has large amounts of bright red blood per rectum and we need to make sure she is still not bleeding. She was supposed to get a repeat CBC this am, but somehow that did not get done. I was luckily able to get a hold of Dr. Fonseca this am and he looked it up; she had large broad based polyp removed from cecum that he had to put clips on for bleeding. Pt was admitted because she had some transient hypotension and needed to be monitored to make sure she didn't need emergent intervention. Plan for colonoscopy; risks and complications discussed, not limited to pain, bleeding, infection and worst case intestinal perforation. all questions answered to her satisfaction. Clinical Quality Measures DVT/VTE Risk/Contraindication: Risk Factor Score Per Nursin RFS Level Per Nursing on Admit: 1=Low/No VTE PPX THELMA MCKINLEY DO May 14, 2020 09:16
[2020-05-14] MEDS ORDERED: fentaNYL INJECTION 100 MCG/2 ML AMP ONE (09:45)
[2020-05-14] MEDS ORDERED: proPOfol 200 MG/20 ML (DIPRIVAN) VIAL IV ONE (09:55)
--- NOTE | 2020-05-14 12:11 | History & Physical-Hospitalist ---
History of Present Illness HPI/Chief Complaint Jackie Bowman is a 55-year-old female with past medical history of hypothyroidism, hyperlipidemia, GERD, obesity, who presented with hematochezia. She reports that she had a colonoscopy a few days ago. Yesterday, she developed bright red blood per rectum. She reports feeling lightheaded and dizzy. She denies any abdominal pain. She denies any nausea or vomiting. She denies any fevers or chills. She denies any shortness of breath or cough. She denies any chest pain. She has no other complaints or concerns. Source: patient Exam Limitations: no limitations Date Seen 05/14/20 Time Seen by a Provider: 08:30 Attending Physician Scarlett Schneider MD PCP Collin Buck MD Referring Physician Date of Admission May 14, 2020 at 03:50 Home Medications & Allergies Home Medications Reviewed patient Home Medication Reconciliation performed by pharmacy medication reconciliations factory maintenance technician and/or nursing. Patients Allergies have been reviewed. Allergies Allergies Coded Allergies No Known Drug Allergies (Donllcjzuz65/8/15) Past Jbjlolj-Nzmdzx-[id number] Hx Past Med/Social Hx: Reviewed Nursing Past Med/Soc Hx Patient Social History Alcohol Use: Occasionally Uses Number of Drinks Today: Alcohol Beverage of Choice: Wine Recreational Drug Use: No Smoking Status: Never a Smoker 2nd Hand Smoke Exposure: No Recent Foreign Travel: No Contact w/other who traveled: No Recent Hopitalizations: No Recent Infectious Disease Expo: No Immunizations Up To Date Tetanus Booster (TDap): Unknown Date of Pneumonia Vaccine: Aug 31, 2018 Date of Influenza Vaccine: Sep 02, 2018 Seasonal Allergies Seasonal Allergies: No Past Medical History Surgeries: Abdominal, Gallbladder, Hysterectomy Respiratory: Asthma, Pneumonia Currently Using CPAP: No Currently Using BIPAP: No Cardiac: High Cholesterol : No Reproductive: No Sexually Transmitted Disease: No Hysterectomy, Menopausal Gastrointestinal: Gastroesophageal Reflux Musculoskeletal: Arthritis Endocrine: Hypothyroidsim Cancer: Leukemia Did You Recieve Any Treatments: Yes What Type of Treatment Did You: Chemotherapy, Radiation History of Blood Disorders: No Adverse Reaction to Blood Lan: Yes (high fever) Family History Diabetes mellitus 19 FATHER Hypercholesterolemia 19 FATHER 19 MOTHER G8 SISTER Diabetes, Hypertension Review of Systems Constitutional: dizziness EENTM: no symptoms reported Respiratory: no symptoms reported Cardiovascular: no symptoms reported Gastrointestinal: other (Hematochezia) Genitourinary: no symptoms reported Musculoskeletal: no symptoms reported Skin: no symptoms reported Psychiatric/Neurological: No Symptoms Reported Physical Exam Physical Exam Vital Signs Vital Signs - First Documented 05/14/20 05/14/20 02:15 10:10 Temp 36.9 Pulse 93 Resp 18 B/P (MAP) 80/52 (61) Pulse Ox 97 O2 Delivery Room Air O2 Flow Rate 6 Capillary Refill : Less Than 3 Seconds Height, Weight, BMI Height: 5'4.00" Weight: 164lbs. 5.0oz. [id number]; 30.00 BMI Method:Stated General Appearance: No Apparent Distress, Anxious, Obese HEENT: PERRL/EOMI, Pharynx Normal Neck: Normal Inspection, Supple Respiratory: Lungs Clear, Normal Breath Sounds, No Respiratory Distress Cardiovascular: Regular Rate, Rhythm, No Edema, No Murmur Gastrointestinal: Normal Bowel Sounds, Non Tender, Soft Extremity: Normal Inspection, Non Tender, No Pedal Edema Neurologic/Psychiatric: Alert, Oriented x3, No Motor/Sensory Deficits, Normal Mood/Affect Skin: Normal Color, Warm/Dry Results Results/Procedures Labs Laboratory Tests 05/14/20 02:25 05/14/20 07:50 Patient resulted labs reviewed. Imaging: Reviewed Imaging Report Assessment/Plan Admission Diagnosis Hematochezia Admission Status: Inpatient Order (span 2 midnights) Reason for Inpatient Admission: Hematochezia requiring endoscopic intervention Assessment and Plan Hematochezia Post polypectomy bleeding Hemoglobin 10.8 on arrival Gen. surgery consulted, appreciate assistance Planning for colonoscopy today Recheck hemoglobin this afternoon Transfuse as needed to keep hemoglobin greater than 7 Acute kidney injury Creatinine 1.5 on arrival, improved to 1.09 Continue IV fluids Elevated LFTs AST/ALT 95/100 on arrival, trending down this morning Check hepatitis C antibody Continue to monitor Hypokalemia Hypomagnesemia Continue to monitor and replace as needed Hypothyroidism Hyperlipidemia GERD Resume home meds when diet is resumed Obesity Chronically significant, no acute management needs DVT prophylaxis: Held due to active major bleeding Diagnosis/Problems Diagnosis/Problems (1) Hematochezia Status: Acute (2) Post-polypectomy bleeding Status: Acute (3) DRAGAN (acute kidney injury) Status: Acute (4) Hypokalemia Status: Acute (5) Hypomagnesemia Status: Acute (6) HLD (hyperlipidemia) Status: Chronic (7) GERD (gastroesophageal reflux disease) Status: Chronic (8) Obesity Status: Chronic (9) Elevated LFTs Status: Acute (10) Hypothyroidism Status: Chronic Clinical Quality Measures DVT/VTE Risk/Contraindication: Risk Factor Score Per Nursin RFS Level Per Nursing on Admit: 1=Low/No VTE PPX SCARLETT SCHNEIDER MD May 14, 2020 12:11
--- NOTE | 2020-05-14 17:13 | OPERATIVE REPORT ---
DATE OF SERVICE: PREOPERATIVE DIAGNOSIS: Rectal bleed with history of recent colonoscopy. POSTOPERATIVE DIAGNOSES: Rectal bleed with history of recent colonoscopy, diverticula and internal hemorrhoids. PROCEDURE: Colonoscopy. SURGEON: Charles Garcia DO. SPECIAL EVENTS MANAGER: None. ANESTHESIA: IV sedation by the COACH OPERATOR. SPECIMENS: None. BLOOD LOSS: None. FLUIDS: Per anesthesia. POSTOPERATIVE CONDITION: Stable. INDICATION FOR PROCEDURE: The patient is a 55-year-old female who on had a colonoscopy where they removed a couple of polyps and then she had a very large broad-based polyp in the cecum that was removed piecemeal and then had clips placed. She started having large amounts of bright red bleeding and needed a workup. FINDINGS: The patient had a lot of old blood, some retained fecal material, diverticula, some internal hemorrhoids, but no active bleeding. PROCEDURE NOTE: After informed consent was obtained, the patient was brought to the endoscopy suite and placed in the left lateral decubitus position. She was administered IV sedation by the COACH OPERATOR who monitored her vitals the entire time, heart rate, blood pressure and pulse ox. A scope was inserted. On the way in, noted a lot of dark maroon blood. No bright red blood. I saw some diverticula and took a picture what looked like a previous polyp biopsy site. I had a hard time getting all the way to the cecum. I had spoken with Dr. Raphael earlier that is where the polyp and clips were from. I able to get it to the ascending colon and could see the clips, I took a picture and then had to roll the patient on her left and onto her right to try and get into the colon. Finally, I actually put her back on her left side and able to get into the cecum. I could see the clips. They were in place. There was no bleeding. Unfortunately, she had a lot of fecal material, I could see this. This was an unprepped case and some old blood, so could not see the appendiceal orifice, but this is where the clips were and therefore knew we were in the cecum. At this point, I then slowly withdrew the scope insufflating to look circumferentially at the fernandez looking at the cecum, ascending colon to the hepatic flexure, down the transverse colon, splenic flexure, into the descending colon, down into the sigmoid where we saw some diverticula into the rectum and then noted some internal hemorrhoids. Throughout here, did not see any active bleeding, did not see any other obvious pathology, but again fernandez were covered with some fecal material as well as some old blood. I removed the scope. The patient tolerated the procedure and recovered in endoscopy suite. Job ID: [id number] DocumentID: [id number] Dictated Date: 05/14/2020 11:13:25 Growth Media Mixer Mushroom Date: 05/14/2020 17:12:10 Dictated By: DO FÁTIMA GARDINER
[2020-05-15 13:52] LABS: HEPATITIS C ANTIBODY C Non-Reactive (Non-Reactive)
--- NOTE | 2020-05-22 08:39 | Anesthesia-General Post-Op ---
MAC Patient Condition Mental Status/LOC: Same as Preop Cardiovascular: Satisfactory Nausea/Vomiting: Absent Respiratory: Satisfactory Pain: Controlled Complications: Absent Post Op Complications Complications None Follow Up Care/Instructions Patient Instructions None needed. Anesthesiology Discharge Order Discharge Order late entry from 05-14-20 at 1045: Patient is doing well, no complaints, stable vital signs, no apparent adverse anesthesia problems. No complications reported per nursing. BERNARDO GREGORIO EYEGLASS CUTTER May 22, 2020 08:39
== END 2020-05-14 13:35 | disposition home or self-care (01) ==
LOC: EDUNIT# 02:04 → ER 02:05 → UNDOADMIN 03:50 → ICU 03:50 → SDC 03:50 → ICU 03:50 → SDC 13:35 → UNDODISIN 13:35
PROVIDERS: ATTEND Internal Medicine
DX: K62.5 Hemorrhage of anus and rectum (principal); N17.9 Acute kidney failure, unspecified; E03.9 Hypothyroidism, unspecified; E66.9 Obesity, unspecified; E78.5 Hyperlipidemia, unspecified; K21.9 Gastro-esophageal reflux disease without esophagitis; E87.6 Hypokalemia; K57.30 Diverticulosis of large intestine without perforation or abscess without bleeding; E83.42 Hypomagnesemia; K64.8 Other hemorrhoids; E86.1 Hypovolemia; D64.9 Anemia, unspecified; C92.00 Acute myeloblastic leukemia, not having achieved remission; I95.89 Other hypotension; Z68.31 Body mass index [BMI] 31.0-31.9, adult; Z86.010 Personal history of colon polyps; Z98.890 Other specified postprocedural states; Z92.21 Personal history of antineoplastic chemotherapy; Z92.3 Personal history of irradiation; Z94.81 Bone marrow transplant status; Z90.81 Acquired absence of spleen
CPT/HCPCS: 36415; 80053; 81000; 83735; 84100; 85025; 85610; 86141; 86803; 86850; 86900; 86901; 86920; 87081; 96360

== ENCOUNTER → 2021-03-16 | Outpatient (CLI) | payer OTHER, MEDICARE ==
[~2021-03-16] MED LIST changes: +ALPR.25T PO; -ALPR0.254 PO; +FENO134C; +ICOS1CAP; -MONT10TA26 PO; +MONT10TA32 PO; -OMEG-105 PO; +OMEG-218 PO
--- NOTE | 2021-03-16 13:07 | Diagnostic Imaging Report ---
INDICATION: Routine screening. Comparison is made with prior mammogram from 11/05/2019 and 04/15/2018. 2-D and 3-D bilateral screening mammography was performed with CAD. Both breasts are primarily involutional. Intraparenchymal lymph node in the outer right breast is stable. No spiculated mass or malignant appearing microcalcifications are seen. Axillae are unremarkable. IMPRESSION: BI-RADS Category 2 No mammographic features suspicious for malignancy are identified. ACR BI-RADS Category 2: Benign findings. Result letter will be mailed to the patient. Note: At least 10% of breast cancer is not imaged by mammography. Dictated by: Dictated on workstation # [id number]
== END ==
LOC: RAD 08:57
PROVIDERS: ATTEND Internal Medicine
DX: Z12.31 Encounter for screening mammogram for malignant neoplasm of breast (principal)
CPT/HCPCS: 77063; 77067

== ENCOUNTER 2021-08-31 12:26 | Inpatient (IN) | payer OTHER, MEDICARE ==
[~2021-08-31] VITALS: Ht 163 cm; Wt 72.5 kg
[~2021-08-31 12:26] MED LIST changes: -FENO134C; +FENO134C PO; -IMAT400T PO; +IMAT400T6 PO
[2021-08-31] MEDS ORDERED: NS IV 1000 ML 1,000 ML IV SCH (13:00)
[2021-08-31] MEDS ORDERED: VANCOMYCIN INJECTION 1,500 MG in NS IV 500 ML 500 ML IV ONE ×2 (13:00→14:45)
[2021-08-31] MEDS ORDERED: NS IV 500 ML 500 ML IV ONE (13:00)
[2021-08-31] MEDS ORDERED: CEFEPIME INJECTION 1,000 MG in WATER (STERILE) FOR INJECTION 10 ML IV ONE (13:00)
--- NOTE | 2021-08-31 13:10 | ED General ---
General Stated Complaint: SOB,FEVER,COUGH Source of Information: Patient Exam Limitations: No Limitations History of Present Illness Date Seen by Provider: Aug 31, 2021 Time Seen by Provider: 12:30 Initial Comments Patient to the ER by private conveyance with chief complaint of what started off as sinus congestion and drainage and now is a productive cough today. Fever of 100.1. 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 She is not having any abdominal pain nausea vomiting. She is not taking any ant ipyretics. She is not having diarrhea or constipation. She does not have a history of asthma or COPD. 4 weeks ago she had similar symptoms of nasal congestion and was put on azithromycin by Dr. Buck which made it go away. She is on day 2 of another round of azithromycin and not feeling any better. She did get a Covid swab at [facility] in [place] which was negative yest keny. Allergies and Home Medications Allergies Coded Allergies: No Known Drug Allergies (Unverified , 10/08/15) Patient Home Medication List Home Medication List Reviewed: Yes Albuterol Sulfate (Albuterol Sulfate) 1.25 Mg/3 Ml Vial.neb, 1.25 MG NEB TID PRN for WHEEZING, (Reported) Entered as Reported by: CLARITA NAVARRO on 10/07/18 0846 Atorvastatin Calcium (Atorvastatin Calcium) 10 Mg Tablet, 10 MG PO DAILY, (Reported) Entered as Reported by: CLARITA NAVARRO on 08/06/18 1632 Fenofibrate,Micronized (Fenofibrate) 134 Mg Capsule, (Reported) Entered as Reported by: LESLIE COVINGTON on 05/14/20 0217 Fluticasone/Salmeterol (Advair 100-50 Diskus) 1 Each Blst.w.dev, 1 PUFF INH BID PRN for WHEEZING, (Reported) Entered as Reported by: CLARITA NAVARRO on 10/07/18 0846 Icosapent Ethyl (Vascepa) 1 Gm Capsule, (Reported) Entered as Reported by: LESLIE COVINGTON on 05/14/20 0217 Lansoprazole (Lansoprazole) 30 Mg Capsule.dr, 30 MG PO DAILY, (Reported) Entered as Reported by: CLARITA NAVARRO on 04/05/19 1342 Levothyroxine Sodium (Levothyroxine Sodium) 175 Mcg Tablet, 175 MCG PO DAILY, (Reported) Entered as Reported by: JIGNESH NELSON on 01/08/17 1611 Morrill-3 Acid Ethyl Esters (Morrill-3 Acid Ethyl Esters) 1 Gm Capsule, 2 GM PO BID, (Reported) Entered as Reported by: CLARITA NAVARRO on 08/06/18 1632 Valacyclovir HCl (Valacyclovir) 1,000 Mg Tablet, 1,000 MG PO DAILY PRN for FLARE UP, (Reported) Entered as Reported by: CLARITA NAVARRO on 08/06/18 1632 Review of Systems Review of Systems Constitutional: chills; No diaphoresis; fever, malaise EENTM: No ear discharge, No hearing loss Respiratory: No cough, No short of breath Cardiovascular: No edema Genitourinary: No dysuria, No frequency : No Musculoskeletal: No back pain, No joint pain Psychiatric/Neurological: Denies Anxiety, Denies Depressed All Other Systems Reviewed Negative Unless Noted: Yes Past Sceezbs-Sgdltl-Nwaiiy Hx Patient Social History Tobacco Use?: No Use of E-Cig and/or Vaping dev: No Substance use?: No Alcohol Use?: Yes Alcohol Frequency: Once in a while Immunizations Up To Date Tetanus Booster (TDap): Unknown Seasonal Allergies Seasonal Allergies: No Past Medical History Surgeries: Yes (bone marrow transplant '03, splenectomy, COLONOSCOPY) Abdominal, Gallbladder, Hysterectomy Respiratory: Yes (BRONCHITIS) Pneumonia Currently Using CPAP: No Currently Using BIPAP: No Cardiac: Yes High Cholesterol Neurological: No Reproductive Disorders: No 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, Menopausal Sexually Transmitted Disease: No Genitourinary: No Gastrointestinal: Yes Gastroesophageal Reflux Musculoskeletal: Yes Arthritis Endocrine: Yes Hypothyroidsim HEENT: No Cancer: Yes Leukemia Did You Recieve Any Treatments: Yes What Type of Treatment Did You: Chemotherapy, Radiation Psychosocial: No Integumentary: No Blood Disorders: No Adverse Reaction/Blood Tranf: Yes (high fever) Family Medical History Diabetes mellitus 19 FATHER Hypercholesterolemia 19 FATHER 19 MOTHER G8 SISTER Diabetes, Hypertension Physical Exam-Suspected Sepsis Physical Exam Vital Signs Vital Signs - First Documented 08/31/21 12:38 Temp 37.9 Pulse 117 Resp 18 B/P (MAP) 164/97 (119) Pulse Ox 95 O2 Delivery Room Air Capillary Refill : Height, Weight, BMI Height: 5'4.00" Weight: 164lbs. 5.0oz. 74.524446jd; 30.00 BMI Method:Stated General Appearance: WD/WN, Mild Distress Eyes: Bilateral Eye Normal Inspection, Bilateral Eye PERRL, Bilateral Eye EOMI HEENT: PERRL/EOMI, TMs Normal, Pharynx Normal; No Moist Mucous Membranes (Dry oral mucosa); Other (Maxillary sinus congestion with mild tenderness) Neck: Full Range of Motion, Normal Inspection Respiratory: Lungs Clear, Normal Breath Sounds, No Accessory Muscle Use, No Respiratory Distress Cardiovascular: Regular Rate, Rhythm, No Edema, Normal Peripheral Pulses Gastrointestinal: Normal Bowel Sounds, Non Tender, Soft Extremity: Normal Capillary Refill, Normal Inspection, No Pedal Edema Neurologic/Psychiatric: Alert, Oriented x3, No Motor/Sensory Deficits Skin: normal color, warm/dry Focused Exam Sepsis Stage: Severe Sepsis Possible Source: Pulmonary Lactate Level 08/31/21 13:24: Lactic Acid Level 2.06*H Time of Focused Exam: 14:22 Respiratory: Lungs Clear, Normal Breath Sounds, No Accessory Muscle Use, No Respiratory Distress (Cough productive of yellow-green sputum) Cardiovascular: Regular Rate, Rhythm (110 heart rate), No Edema, Normal Peripheral Pulses Capillary Refill: Less Than 3 Seconds Peripheral Pulses: 2+ Radial Pulses (R), 2+ Radial Pulses (L) Skin: normal color, warm/dry Lactic Acid Level Laboratory Tests Test 08/31/21 13:24 Lactic Acid Level 2.06 MMOL/L (0.50-2.00) *H Within 3hrs of presentation: Admin fluids, Admin ABX, Blood cultures prior to ABX's, Focus exam, Lactate level Progress/Results/Core Measures Suspected Sepsis SIRS Temperature: Pulse: Respiratory Rate: Laboratory Tests 08/31/21 13:24: White Blood Count 13.4H Blood Pressure / Mean: 08/31/21 13:24: Lactic Acid Level 2.06*H Laboratory Tests 08/31/21 13:24: Creatinine 1.10, INR Comment 1.0, Platelet Count 486H, Total Bilirubin 0.4 Results/Orders Lab Results Laboratory Tests Test 08/31/21 12:46 08/31/21 13:24 08/31/21 13:59 Range/Units Influenza Type A (RT-PCR) Not Detected Not Detecte Influenza Type B (RT-PCR) Not Detected Not Detecte SARS-CoV-2 RNA (RT-PCR) Not Detected Not Detecte White Blood Count 13.4 H 4.3-11.0 10^3/uL Red Blood Count 4.48 3.80-5.11 10^6/uL Hemoglobin 14.0 11.5-16.0 g/dL Hematocrit 42 35-52 % Mean Corpuscular Volume 94 80-99 fL Mean Corpuscular Hemoglobin 31 25-34 pg Mean Corpuscular Hemoglobin Concent 33 32-36 g/dL Red Cell Distribution Width 13.6 10.0-14.5 % Platelet Count 486 H 130-400 10^3/uL Mean Platelet Volume 10.0 9.0-12.2 fL Immature Granulocyte % (Auto) 0 % Neutrophils (%) (Auto) 67 42-75 % Lymphocytes (%) (Auto) 19 12-44 % Monocytes (%) (Auto) 9 0-12 % Eosinophils (%) (Auto) 3 0-10 % Basophils (%) (Auto) 2 0-10 % Neutrophils # (Auto) 9.0 H 1.8-7.8 10^3/uL Lymphocytes # (Auto) 2.6 1.0-4.0 10^3/uL Monocytes # (Auto) 1.2 H 0.0-1.0 10^3/uL Eosinophils # (Auto) 0.4 H 0.0-0.3 10^3/uL Basophils # (Auto) 0.3 H 0.0-0.1 10^3/uL Immature Granulocyte # (Auto) 0.1 0.0-0.1 10^3/uL Prothrombin Time 13.0 12.2-14.7 SEC INR Comment 1.0 0.8-1.4 Activated Partial Thromboplast Time 27 24-35 SEC Sodium Level 136 135-145 MMOL/L Potassium Level 3.8 3.6-5.0 MMOL/L Chloride Level 100 98-107 MMOL/L Carbon Dioxide Level 22 21-32 MMOL/L Anion Gap 14 5-14 MMOL/L Blood Urea Nitrogen 14 7-18 MG/DL Creatinine 1.10 0.60-1.30 MG/DL Estimat Glomerular Filtration Rate 51 BUN/Creatinine Ratio 13 Glucose Level 146 H 70-105 MG/DL Lactic Acid Level 2.06 *H 0.50-2.00 MMOL/L Calcium Level 10.5 H 8.5-10.1 MG/DL Corrected Calcium 8.5-10.1 MG/DL Total Bilirubin 0.4 0.1-1.0 MG/DL Aspartate Amino Transf (AST/SGOT) 213 H 5-34 U/L Alanine Aminotransferase (ALT/SGPT) 124 H 0-55 U/L Alkaline Phosphatase 64 40-136 U/L Total Protein 8.3 H 6.4-8.2 GM/DL Albumin 4.7 H 3.2-4.5 GM/DL Procalcitonin 0.20 H <0.10 NG/ML Urine Color YELLOW Urine Clarity CLEAR Urine pH 6.0 5-9 Urine Specific [place] 1.015 L 1.016-1.022 Urine Protein 2+ H NEGATIVE Urine Glucose (UA) TRACE H NEGATIVE Urine Ketones NEGATIVE NEGATIVE Urine Nitrite NEGATIVE NEGATIVE Urine Bilirubin NEGATIVE NEGATIVE Urine Urobilinogen 0.2 < = 1.0 MG/DL Urine Leukocyte Esterase 1+ H NEGATIVE Urine RBC (Auto) NEGATIVE NEGATIVE Urine RBC NONE /HPF Urine WBC 0-2 /HPF Urine Squamous Epithelial Cells 0-2 /HPF Urine Crystals NONE /LPF Urine Bacteria NEGATIVE /HPF Urine Casts NONE /LPF Urine Mucus NEGATIVE /LPF Urine Culture Indicated CULTURE PENDING My Orders Orders - ACE POPE Influenza A And B By Pcr (08/31/21 12:54) Cbc With Automated Diff (08/31/21 12:54) Comprehensive Metabolic Panel (08/31/21 12:54) Blood Culture (08/31/21 12:54) Sputum Culture (08/31/21 12:54) Urinalysis (08/31/21 12:54) Urine Culture (08/31/21 12:54) Protime With Inr (08/31/21 12:54) Partial Thromboplastin Time (08/31/21 12:54) Chest 1 View, Ap/Pa Only (08/31/21 12:54) Ed Iv/Invasive Line Start (08/31/21 12:54) Ed Iv/Invasive Line Start (08/31/21 12:54) Vital Signs Adult Sepsis Patie Q15M (08/31/21 12:54) O2 (08/31/21 12:54) Remove Rings In Anticipation O (08/31/21 12:54) Lactic Acid Analyzer (08/31/21 12:54) Ns Iv 1000 Ml (Sodium Chloride 0.9%) (08/31/21 13:00) Cefepime Injection (Maxipime Injection) (08/31/21 13:00) Vancomycin Injection (Vancomycin Injecti (08/31/21 13:00) Ed Iv/Invasive Line Start (08/31/21 12:54) Ns Iv 500 Ml (Sodium Chloride 0.9%) (08/31/21 13:00) Acetaminophen Tablet (Tylenol Tablet) (08/31/21 13:15) Covid-19 External Lab Results (08/31/21 13:11) Covid-19 External Lab Results (08/31/21 14:02) Isolation Central Supply Req (08/31/21 14:02) Procalcitonin (Pct) (08/31/21 14:11) Vancomycin Injection (Vancomycin Injecti (08/31/21 14:45) Medications Given in ED Current Medications Medications Dose Ordered Sig/Dahlia Route Start Time Stop Time Status Last Admin Dose Admin Acetaminophen 1,000 mg ONCE ONCE PO 08/31/21 13:15 08/31/21 13:16 DC 08/31/21 13:36 1,000 MG Cefepime HCl 1000 mg/Sterile Water 10 ml @ 200 mls/hr ONCE ONCE IV 08/31/21 13:00 08/31/21 13:02 DC 08/31/21 14:29 200 MLS/HR Sodium Chloride 500 ml @ 0 mls/hr Q0M ONCE IV 08/31/21 13:00 08/31/21 13:01 DC 08/31/21 13:54 0 MLS/HR Vital Signs/I&O 08/31/21 12:38 Temp 37.9 Pulse 117 Resp 18 B/P (MAP) 164/97 (119) Pulse Ox 95 O2 Delivery Room Air Capillary Refill : Progress Note : Time: 13:13 Progress Note Septic work-up with broad-spectrum antibiotics suspecting upper respiratory or lower respiratory bacterial infection. Cefepime and vancomycin were selected because the patient is asplenic. Tylenol for her fever. Diagnostic Imaging Diagonstic Imaging: Xray Plain Films/CT/US/NM/MRI: chest Comments [facility] [place], [place] NAME: PUJA WOLF [facility] REC#: [id number] PT STATUS: ADM IN : 1965 PHYSICIAN: ACE POPE MD ADMIT DATE: 08/31/21 Draft Date of Exam:08/31/21 CHEST 1 VIEW, AP/PA ONLY EXAMINATION: Chest, one view. HISTORY: Sepsis. COMPARISON: 04/04/2019. FINDINGS: The lungs are clear without edema or pneumonia. No pleural effusion or pneumothorax. Heart size is normal. IMPRESSION: 1. Clear lungs. Dictated on workstation # [id number] Dict: 08/31/21 1511 Trans: 08/31/21 1514 [id number] Interpreted by: PERLA KELLY MD Electronically signed by: Reviewed: Reviewed by Me Departure Communication (Admissions) Time/Spoke to Admitting Phy: 14:15 Discussed the case with Dr. Castellano and he agrees to admit the patient to the floor for broad-spectrum antibiotics vancomycin and cefepime. Impression Primary Impression: Pneumonia Qualified Codes: J18.9 - Pneumonia, unspecified organism Additional Impressions: Severe sepsis History of asplenia Disposition: ADMITTED INPATIENT Condition: Stable Admissions Decision to Admit Reason: Admit from ER (General) Decision to Admit/Date: Aug 31, 2021 Time/Decision to Admit Time: 14:00 Departure-Patient Inst. Referrals: SARAH BUCK MD (PCP/Family) Primary Care Physician ACE POPE Aug 31, 2021 13:10
[2021-08-31] MEDS ORDERED: ACETAMINOPHEN 500 MG TAB (TYLENOL) PO ONE (13:15)
[2021-08-31 13:35] LABS: BASOPHILS # (AUTO) 0.3 10^3/uL (0.0-0.1); BASOPHILS % (AUTO) 2 % (0-10); EOSINOPHILS # (AUTO) 0.4 10^3/uL (0.0-0.3); EOSINOPHILS % (AUTO) 3 % (0-10); HEMATOCRIT 42 % (35-52); LYMPHOCYTES # (AUTO) 2.6 10^3/uL (1.0-4.0); LYMPHOCYTES % (AUTO) 19 % (12-44); MEAN CORPUSCULAR HEMOGLOBIN 31 pg (25-34); MEAN CORPUSCULAR HGB CONC 33 g/dL (32-36); MEAN CORPUSCULAR VOLUME 94 fL (80-99); MONOCYTES # (AUTO) 1.2 10^3/uL (0.0-1.0); MONOCYTES % (AUTO) 9 % (0-12); NEUTROPHILS % (AUTO) 67 % (42-75); PLATELET COUNT 486 10^3/uL (130-400); WHITE BLOOD COUNT 13.4 10^3/uL (4.3-11.0)
[2021-08-31 13:45] LABS: ALBUMIN 4.7 GM/DL (3.2-4.5); CHLORIDE 100 MMOL/L (98-107); POTASSIUM 3.8 MMOL/L (3.6-5.0); SODIUM 136 MMOL/L (135-145)
[2021-08-31 13:46] LABS: CALCIUM 10.5 MG/DL (8.5-10.1)
[2021-08-31 13:47] LABS: GLUCOSE 146 MG/DL (70-105)
[2021-08-31 13:48] LABS: TOTAL PROTEIN 8.3 GM/DL (6.4-8.2)
[2021-08-31 13:49] LABS: BILIRUBIN,TOTAL 0.4 MG/DL (0.1-1.0); CARBON DIOXIDE 22 MMOL/L (21-32)
[2021-08-31 13:51] LABS: ALKALINE PHOSPHATASE 64 U/L (40-136); GFR ESTIMATED 51
[2021-08-31 13:52] LABS: BUN/CREATININE RATIO 13
[2021-08-31 13:54] LABS: ALANINE AMINOTRANSFERASE 124 U/L (0-55)
[2021-08-31 14:12] LABS: BILIRUBIN,URINE NEGATIVE (NEGATIVE); CLARITY,URINE CLEAR; COLOR,URINE YELLOW; GLUCOSE, URINE (UA) TRACE (NEGATIVE); KETONES,URINE NEGATIVE (NEGATIVE); LEUKOCYTE ESTERASE ,URINE 1+ (NEGATIVE); NITRITE,URINE NEGATIVE (NEGATIVE); PROTEIN,URINE 2+ (NEGATIVE)
[2021-08-31 14:53] LABS: BACTERIA,URINE NEGATIVE /HPF; SQUAMOUS EPITHELIAL CELL,UR 0-2 /HPF; WBC,URINE 0-2 /HPF
--- NOTE | 2021-08-31 15:14 | Diagnostic Imaging Report ---
EXAMINATION: Chest, one view. HISTORY: Sepsis. COMPARISON: 04/04/2019. FINDINGS: The lungs are clear without edema or pneumonia. No pleural effusion or pneumothorax. Heart size is normal. IMPRESSION: 1. Clear lungs. Dictated by: Dictated on workstation # [id number]
[2021-08-31 16:03] VITALS: BP 145/91
[2021-08-31 16:28] VITALS: BP 145/91
[2021-08-31] MEDS ORDERED: CATHETER FLUSH 10 ML SYR IV PRN (16:30)
[2021-08-31 16:56] VITALS: BP 145/91
[2021-08-31] MEDS ORDERED: FLU QUADRIvalent (3YOA+) 60 mcg/0.5 ml 2021-22(AFLURIA) IM ONE (17:15)
[2021-08-31] MEDS: LACTATED RINGERS 1,000 ML IV SCH (17:46)
[2021-08-31 19:02] VITALS: BP 153/89
[2021-08-31] MEDS: CEFEPIME 1,000 MG/SWFI 10 ML IV PUSH IV SCH ×2 (19:38)
[2021-08-31] MEDS: ACETAMINOPHEN 325 MG TABLET PO PRN (21:58)
[2021-08-31 23:30] VITALS: BP 149/88
[2021-09-01] MEDS: LACTATED RINGERS 1,000 ML IV SCH ×5 (00:42→22:06)
[2021-09-01] MEDS: CEFEPIME 1,000 MG/SWFI 10 ML IV PUSH IV SCH ×8 (03:05→19:48)
[2021-09-01 03:35] VITALS: BP 147/92
[2021-09-01 04:05] LABS: BASOPHILS # (AUTO) 0.3 10^3/uL (0.0-0.1); BASOPHILS % (AUTO) 2 % (0-10); EOSINOPHILS # (AUTO) 0.6 10^3/uL (0.0-0.3); EOSINOPHILS % (AUTO) 5 % (0-10); HEMATOCRIT 41 % (35-52); HEMOGLOBIN 13.4 g/dL (11.5-16.0); LYMPHOCYTES # (AUTO) 3.4 10^3/uL (1.0-4.0); LYMPHOCYTES % (AUTO) 27 % (12-44); MEAN CORPUSCULAR HEMOGLOBIN 31 pg (25-34); MEAN CORPUSCULAR HGB CONC 33 g/dL (32-36); MEAN CORPUSCULAR VOLUME 94 fL (80-99); MEAN PLATELET VOLUME 9.9 fL (9.0-12.2); MONOCYTES # (AUTO) 1.2 10^3/uL (0.0-1.0); MONOCYTES % (AUTO) 9 % (0-12); NEUTROPHILS # (AUTO) 7.3 10^3/uL (1.8-7.8); NEUTROPHILS % (AUTO) 57 % (42-75); PLATELET COUNT 426 10^3/uL (130-400); WHITE BLOOD COUNT 12.8 10^3/uL (4.3-11.0)
[2021-09-01 04:18] LABS: ALBUMIN 4.2 GM/DL (3.2-4.5)
[2021-09-01 04:19] LABS: POTASSIUM 3.7 MMOL/L (3.6-5.0)
[2021-09-01 04:20] LABS: CALCIUM 9.8 MG/DL (8.5-10.1)
[2021-09-01 04:21] LABS: TOTAL PROTEIN 7.4 GM/DL (6.4-8.2)
[2021-09-01 04:23] LABS: BILIRUBIN,TOTAL 0.5 MG/DL (0.1-1.0)
[2021-09-01 04:25] LABS: CREATININE SERUM 0.99 MG/DL (0.60-1.30)
[2021-09-01 04:26] LABS: BILIRUBIN,DIRECT 0.2 MG/DL (0.0-0.3); BILIRUBIN,INDIRECT 0.3 MG/DL
[2021-09-01] MEDS: LEVOTHYROXINE 75 MCG (LEVOTHROID) TABLET PO SCH (05:28)
[2021-09-01] MEDS: LEVOTHYROXINE 100 MCG (LEVOTHROID) TAB PO SCH (05:28)
--- NOTE | 2021-09-01 07:16 | Diagnostic Imaging Report ---
INDICATION: Pneumonia COMPARISON: 08/31/2021 TECHNIQUE: Single radiograph of the chest dated 09/01/2021 FINDINGS: The cardiac silhouette is within normal limits in size. No significant pulmonary vascular congestion. The lungs are clear of focal pulmonary opacity. No pleural effusion. No pneumothorax. No acute osseous abnormality. IMPRESSION: Similar examination without acute cardiopulmonary abnormality. Dictated by: Dictated on workstation # [id number]
[2021-09-01 08:00] VITALS: BP 151/96
[2021-09-01] MEDS: ACETAMINOPHEN 325 MG TABLET PO PRN ×2 (08:08→16:36)
[2021-09-01] MEDS: ONDANSETRON 4 MG/2 ML (SDV) Z0FRAN IV PRN (08:09)
--- NOTE | 2021-09-01 09:09 | Diagnostic Imaging Report ---
PROCEDURE: US Hepatic (Liver). TECHNIQUE: Multiple real-time grayscale images were obtained over the right upper quadrant in various projections. INDICATION: Elevated liver enzymes tests, sepsis COMPARISON: 02/19/2016 FINDINGS: The liver is of upper limits of normal in size measuring up to 19 cm. The liver demonstrates diffusely increased echogenicity with a coarsened echotexture and poor acoustic transmission. No focal hepatic mass. Normal direction of flow of the main portal vein. The gallbladder is not visualized, surgically absent. The common bile duct is within normal limits measuring 0.6 cm. Hepatic veins are unremarkable. Visualized portions of the pancreas are unremarkable. Visualized portions of the aorta and inferior vena cava are unremarkable. The right kidney is unremarkable. No significant free fluid. Negative sonographic Shearer sign. IMPRESSION: Borderline hepatomegaly with associated fatty infiltration of the liver. Cholecystectomy. Dictated by: Dictated on workstation # [id number]
[2021-09-01 12:00] VITALS: BP 137/83
[2021-09-01] MEDS ORDERED: DOXYCYCLINE 100 MG (VIBRAMYCIN) TABLET PO ONE (13:15)
--- NOTE | 2021-09-01 13:20 | History & Physical-Hospitalist ---
History of Present Illness HPI/Chief Complaint Jackie Bowman is a 56-year-old female with past medical history of AML s/p bone marrow transplant 2003, asplenia, hyperlipidemia, GERD, who presented with upper respiratory symptoms. She reports that she has been having sinus congestion and pain. She also reports having a sore throat and chest congestion. She has also been having fevers. She is not having any chest pain or shortness of breath. She is having a productive cough. She denies any abdominal pain, nausea, vomiting, or diarrhea. She denies dysuria, frequency, or urgency. Source: patient Exam Limitations: no limitations Date Seen 09/01/21 Time Seen by a Provider: 12:00 Attending Physician Scarlett Schneider MD PCP Collin Buck MD Referring Physician Date of Admission Aug 31, 2021 at 14:15 Home Medications & Allergies Home Medications Reviewed patient Home Medication Reconciliation performed by pharmacy medication reconciliations central supply technician supervisor and/or nursing. Patients Allergies have been reviewed. Allergies Allergies Coded Allergies No Known Drug Allergies (Ipldnqlqop80/8/15) Past Tvnktip-Otkypb-Qhfpza Hx Patient Social History Tobacco Use?: No Smoking Status: Never a Smoker Use of E-Cig and/or Vaping dev: No Substance use?: No Alcohol Use?: Yes Alcohol Frequency: Once in a while Pt feels they are or have been: No Immunizations Up To Date Date of Influenza Vaccine: Sep 02, 2018 First/Initial COVID19 Vaccinat: 02/09/2021 Second COVID19 Vaccination Ahsan: 03/08/2021 Tetanus Booster (TDap): Unknown Date of Pneumonia Vaccine: Aug 31, 2018 Seasonal Allergies Seasonal Allergies: No Current Status status: No Advance Directives: Yes Advance Directive Location: Unable to obtain copy Communicates: Verbally Primary Language: Macedonian Preferred Spoken Language: Macedonian Is interpretation needed?: No Implanted or Applied Medical D: None Past Medical History Surgeries: Abdominal, Gallbladder, Hysterectomy Pneumonia Currently Using CPAP: No Currently Using BIPAP: No High Cholesterol 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, Menopausal Sexually Transmitted Disease: No Gastroesophageal Reflux Arthritis Hypothyroidsim Leukemia Did You Recieve Any Treatments: Yes What Type of Treatment Did You: Chemotherapy, Radiation Blood Disorders: No Adverse Reaction/Blood Tranf: Yes (high fever) Family Medical History Diabetes mellitus 19 FATHER Hypercholesterolemia 19 FATHER 19 MOTHER G8 SISTER Diabetes, Hypertension Review of Systems Constitutional: fever, malaise EENTM: nose congestion Respiratory: cough, phlegm Cardiovascular: no symptoms reported Gastrointestinal: no symptoms reported Genitourinary: no symptoms reported Musculoskeletal: no symptoms reported Skin: no symptoms reported Psychiatric/Neurological: No Symptoms Reported Physical Exam Physical Exam Vital Signs Vital Signs - First Documented 08/31/21 09/01/21 12:38 09:44 Temp 37.9 Pulse 117 Resp 18 B/P (MAP) 164/97 (119) Pulse Ox 95 O2 Delivery Room Air O2 Flow Rate 0.00 Capillary Refill : Less Than 3 Seconds Height, Weight, BMI Height: 5'4.00" Weight: 164lbs. 5.0oz. 74.677063oz; 27.47 BMI Method:Stated General Appearance: No Apparent Distress, WD/WN HEENT: PERRL/EOMI, Pharynx Normal Neck: Normal Inspection, Supple Respiratory: Lungs Clear, Normal Breath Sounds, No Respiratory Distress Cardiovascular: Regular Rate, Rhythm, No Edema, No Murmur Gastrointestinal: Normal Bowel Sounds, Non Tender, Soft Extremity: Normal Inspection, Non Tender, No Pedal Edema Neurologic/Psychiatric: Alert, Oriented x3, No Motor/Sensory Deficits, Normal Mood/Affect Skin: Normal Color, Warm/Dry Results Results/Procedures Labs Laboratory Tests 08/31/21 13:24 09/01/21 03:54 Patient resulted labs reviewed. Imaging: Reviewed Imaging Report Assessment/Plan Admission Diagnosis Sepsis Admission Status: Inpatient Order (span 2 midnights) Reason for Inpatient Admission: Sepsis requiring IV antibiotics Assessment and Plan Severe sepsis due to pneumonia SIRS+ with fever, leukocytosis, tachycardia Symptoms consistent with pneumonia CXR without clear evidence of pneumonia COVID and flu negative Procalcitonin elevated Lactic acid >2 IV fluids Started on Vancomycin and Cefepime Stop Vancomycin Begin Doxycycline No supplemental oxygen requirement Lactic acidosis Lactic acid >2 on arrival Normalized Continue IV fluids Elevated LFTs Appears chronic Liver ultrasound with borderline hepatomegaly, fatty infiltration Hepatitis panel pending Tick panel pending DVT prophylaxis: Lovenox Diagnosis/Problems Diagnosis/Problems (1) Severe sepsis Status: Acute (2) Pneumonia Status: Acute Qualifiers: Pneumonia type: due to unspecified organism Laterality: unspecified laterality Lung location: unspecified part of lung Qualified Codes: J18.9 - Pneumonia, unspecified organism (3) History of asplenia Status: Chronic (4) Elevated LFTs Status: Acute (5) Lactic acidosis Status: Acute SCARLETT SCHNEIDER MD Sep 01, 2021 13:20
[2021-09-01] MEDS: guaiFENesin/DM (ROBITUSSIN DM) 10 ML UDC PO PRN ×3 (13:31→23:30)
[2021-09-01] MEDS ORDERED: PANTOPRAZOLE 40 MG (PROTONIX) TAB PO ONE (13:45)
[2021-09-01] MEDS ORDERED: VANCOMYCIN 1 GM/NS 250 ML IVPB IV SCH ×2 (15:00)
[2021-09-01] MEDS: ENOXAPARIN 40 MG/0.4 ML (LOVENOX) SYR SC SCH (15:06)
[2021-09-01 15:34] VITALS: BP 156/76
[2021-09-01] MEDS: DOXYCYCLINE 100 MG (VIBRAMYCIN) TABLET PO SCH (16:33)
[2021-09-01 19:23] VITALS: BP 133/74
[2021-09-01 23:24] VITALS: BP 128/73
[2021-09-02] MEDS: LACTATED RINGERS 1,000 ML IV SCH ×3 (02:50→18:36)
[2021-09-02] MEDS: CEFEPIME 1,000 MG/SWFI 10 ML IV PUSH IV SCH ×4 (02:50→08:22)
[2021-09-02] MEDS: IBUPROFEN 800 MG (MOTRIN) TAB PO PRN ×2 (03:00→16:55)
[2021-09-02 04:00] VITALS: BP 136/86
[2021-09-02] MEDS: guaiFENesin/DM (ROBITUSSIN DM) 10 ML UDC PO PRN ×4 (04:30→19:15)
[2021-09-02] MEDS: DOXYCYCLINE 100 MG (VIBRAMYCIN) TABLET PO SCH ×2 (05:57→16:55)
[2021-09-02] MEDS: LEVOTHYROXINE 75 MCG (LEVOTHROID) TABLET PO SCH (05:57)
[2021-09-02] MEDS: LEVOTHYROXINE 100 MCG (LEVOTHROID) TAB PO SCH (05:57)
[2021-09-02 06:13] LABS: BASOPHILS # (AUTO) 0.3 10^3/uL (0.0-0.1); BASOPHILS % (AUTO) 2 % (0-10); EOSINOPHILS # (AUTO) 0.6 10^3/uL (0.0-0.3); EOSINOPHILS % (AUTO) 5 % (0-10); HEMATOCRIT 39 % (35-52); HEMOGLOBIN 12.7 g/dL (11.5-16.0); LYMPHOCYTES # (AUTO) 2.6 10^3/uL (1.0-4.0); LYMPHOCYTES % (AUTO) 22 % (12-44); MEAN CORPUSCULAR HEMOGLOBIN 31 pg (25-34); MEAN CORPUSCULAR HGB CONC 33 g/dL (32-36); MEAN CORPUSCULAR VOLUME 94 fL (80-99); MEAN PLATELET VOLUME 10.4 fL (9.0-12.2); MONOCYTES # (AUTO) 1.2 10^3/uL (0.0-1.0); MONOCYTES % (AUTO) 10 % (0-12); NEUTROPHILS # (AUTO) 7.4 10^3/uL (1.8-7.8); NEUTROPHILS % (AUTO) 62 % (42-75); PLATELET COUNT 419 10^3/uL (130-400); WHITE BLOOD COUNT 12.1 10^3/uL (4.3-11.0)
[2021-09-02 06:26] LABS: POTASSIUM 3.6 MMOL/L (3.6-5.0)
[2021-09-02] MEDS ORDERED: LEVOTHYROXINE 150 MCG (LEVOTHROID) TAB PO SCH (06:30)
[2021-09-02 06:32] LABS: CREATININE SERUM 1.18 MG/DL (0.60-1.30)
[2021-09-02 08:03] VITALS: BP 150/89
[2021-09-02] MEDS: PANTOPRAZOLE 40 MG (PROTONIX) TAB PO SCH (08:22)
[2021-09-02] MEDS: MEROPENEM 1,000 MG in WATER (STERILE) FOR INJECTION 20 ML IV SCH ×3 (10:16→23:55)
[2021-09-02] MEDS ORDERED: NS 100 ML (IVPB) BAG IV ONE (11:45)
[2021-09-02] MEDS ORDERED: HOLD METFORMIN - RECEIVED CONTRAST 20 ML VIAL IV SCH (11:45)
[2021-09-02] MEDS ORDERED: IOHEXOL 350 MG/ML 100 ML (OMNIPAQUE 350) VIAL IV ONE (11:45)
[2021-09-02 11:52] VITALS: BP 137/80
--- NOTE | 2021-09-02 12:04 | Diagnostic Imaging Report ---
PROCEDURE: CT maxillofacial with contrast. TECHNIQUE: After intravenous administration of contrast, axial images were obtained through the face and reformatted into coronal and sagittal planes. Auto Exposure Controls were utilized during the CT exam to meet ALARA standards for radiation dose reduction. INDICATION: Pain, tooth abscess COMPARISON: None available. FINDINGS: The frontal sinuses are clear. Mild mucosal thickening and fluid within scattered ethmoidal air cells. Minimal mucosal thickening within the sphenoid sinuses. The bilateral mastoid air cells and middle ear cavities are clear. Mild mucosal thickening within the right maxillary sinus with minimal mucosal thickening within the left maxillary sinus. The lamina papyracea are intact. Rightward deviation of the nasal septum. Small leftward projecting nasal spur. No temporomandibular joint dislocation. An impacted tooth is identified involving the anterior right maxilla, posterior to the right sided maxillary incisors. No acute facial fracture. No osseous destruction. No significant periapical lucency. The muscles of mastication are unremarkable. Parapharyngeal fat is symmetric and well maintained. The visualized salivary glands are unremarkable. No focal fluid collection. No pathologically enlarged lymph nodes within the [id number]. IMPRESSION: Minimal paranasal sinus disease without air-fluid level to suggest acute sinusitis. No acute facial fracture or osseous destruction. No focal fluid collection. Impacted tooth is noted involving the anterior aspect of the right maxilla immediately posterior to the right maxillary incisors. Dictated by: Dictated on workstation # [id number]
--- NOTE | 2021-09-02 12:20 | Progress Note - Hospitalist ---
Subjective HPI/CC On Admission Date Seen by Provider: Sep 02, 2021 Time Seen by Provider: 10:30 Jackie Bowman is a 56-year-old female with past medical history of AML s/p bone marrow transplant 2002, asplenia, hyperlipidemia, GERD, who presented with upper respiratory symptoms. She reports that she has been having sinus congest ion and pain. She also reports having a sore throat and chest congestion. She has also been having fevers. She is not having any chest pain or shortness of breath. She is having a productive cough. She denies any abdominal pain, nausea, vomiting, or diarrhea. She denies dysuria, frequency, or urgency. Subjective/Events-last exam She is feeling about the same today. She is having upper respiratory symptoms. She is feeling congested. She tells me that she did have a dental procedure about a week and a half ago. She is not having any dysuria, frequency, or urgency. She is not having any nausea or vomiting. She does continue to have fevers. Focused Exam Lactate Level 08/31/21 20:10: Lactic Acid Level 2.00 09/01/21 01:07: Lactic Acid Level 1.57 09/01/21 03:54: Lactic Acid Level 1.49 Time of Focused Exam: 14:22 Objective Exam Vital Signs Vital Signs Date Time Temp Pulse Resp B/P (MAP) Pulse Ox O2 Delivery O2 Flow Rate FiO2 09/02/21 11:52 35.6 82 20 137/80 (99) 93 Room Air 09/01/21 09:44 0.00 Capillary Refill : Less Than 3 Seconds General Appearance: No Apparent Distress, WD/WN Respiratory: Lungs Clear, Normal Breath Sounds, No Respiratory Distress Cardiovascular: Regular Rate, Rhythm, No Edema, No Murmur Gastrointestinal: Normal Bowel Sounds, Non Tender, Soft Extremity: Normal Inspection, Non Tender, No Pedal Edema Neurologic/Psychiatric: Alert, Oriented x3, No Motor/Sensory Deficits, Normal Mood/Affect Skin: Normal Color, Warm/Dry Results/Procedures Lab Laboratory Tests 09/02/21 05:24 Patient resulted labs reviewed. Imaging: Reviewed Imaging Report Assessment/Plan Assessment and Plan Assess & Plan/Chief Complaint Severe sepsis due to pneumonia Urinary tract infection Urine culture with gram negative tea Continue IV fluids Currently on Cefepime and Doxycycline Transition from Cefepime to Meropenem due to persistent fevers No supplemental oxygen requirement Elevated LFTs Appears chronic Liver ultrasound with borderline hepatomegaly, fatty infiltration Hepatitis panel pending Tick panel pending Hypothyroidism TSH 20 Resumed home Levothyroxine Add on free T4 DVT prophylaxis: Lovenox Lactic acidosis, resolved Diagnosis/Problems Diagnosis/Problems (1) Severe sepsis Status: Acute (2) Pneumonia Status: Acute Qualifiers: Pneumonia type: due to unspecified organism Laterality: unspecified laterality Lung location: unspecified part of lung Qualified Codes: J18.9 - Pneumonia, unspecified organism (3) History of asplenia Status: Chronic (4) Elevated LFTs Status: Acute (5) Lactic acidosis Status: Resolved Resolution Date/Time: 09/02/21 @ 12:19 SCARLETT SCHNEIDER MD Sep 02, 2021 12:20
[2021-09-02] MEDS: PSEUDOEPHEDRINE HCL 30 MG (SUDAFED) TAB PO PRN (13:28)
[2021-09-02] MEDS: ENOXAPARIN 40 MG/0.4 ML (LOVENOX) SYR SC SCH (13:28)
[2021-09-02] MEDS: ACETAMINOPHEN 325 MG TABLET PO PRN (15:20)
[2021-09-02 16:26] VITALS: BP 158/92
[2021-09-02] MEDS: BENZONATATE 100 MG (TESSALON) CAPSULE PO PRN ×2 (18:08→22:30)
[2021-09-02 19:34] VITALS: BP 156/72
[2021-09-02 22:40] VITALS: BP 145/91
[2021-09-02] MEDS: RT-ALBUTEROL/IPRATROPIUM 3 ML (DUONEB) VIAL INH PRN (22:50)
[2021-09-03] VITALS (7 sets, daily range): BP systolic 125–168; BP diastolic 78–93
[2021-09-03] MEDS: PSEUDOEPHEDRINE HCL 30 MG (SUDAFED) TAB PO PRN ×3 (00:01→20:57)
[2021-09-03] MEDS: guaiFENesin/DM (ROBITUSSIN DM) 10 ML UDC PO PRN ×3 (00:01→08:30)
[2021-09-03] MEDS: LACTATED RINGERS 1,000 ML IV SCH ×3 (01:07→21:29)
[2021-09-03 05:50] LABS: BASOPHILS # (AUTO) 0.2 10^3/uL (0.0-0.1); BASOPHILS % (AUTO) 2 % (0-10); EOSINOPHILS # (AUTO) 0.4 10^3/uL (0.0-0.3); EOSINOPHILS % (AUTO) 3 % (0-10); HEMATOCRIT 37 % (35-52); HEMOGLOBIN 12.2 g/dL (11.5-16.0); LYMPHOCYTES # (AUTO) 2.5 10^3/uL (1.0-4.0); LYMPHOCYTES % (AUTO) 20 % (12-44); MEAN CORPUSCULAR HEMOGLOBIN 31 pg (25-34); MEAN CORPUSCULAR HGB CONC 33 g/dL (32-36); MEAN CORPUSCULAR VOLUME 93 fL (80-99); MEAN PLATELET VOLUME 9.9 fL (9.0-12.2); MONOCYTES # (AUTO) 1.1 10^3/uL (0.0-1.0); MONOCYTES % (AUTO) 8 % (0-12); NEUTROPHILS # (AUTO) 8.3 10^3/uL (1.8-7.8); NEUTROPHILS % (AUTO) 66 % (42-75); PLATELET COUNT 423 10^3/uL (130-400); WHITE BLOOD COUNT 12.6 10^3/uL (4.3-11.0)
[2021-09-03 05:59] LABS: POTASSIUM 3.5 MMOL/L (3.6-5.0)
[2021-09-03 06:01] LABS: CALCIUM 10.4 MG/DL (8.5-10.1)
[2021-09-03 06:02] LABS: TOTAL PROTEIN 7.2 GM/DL (6.4-8.2)
[2021-09-03 06:04] LABS: BILIRUBIN,TOTAL 0.2 MG/DL (0.1-1.0)
[2021-09-03 06:06] LABS: CREATININE SERUM 1.02 MG/DL (0.60-1.30)
[2021-09-03 06:07] LABS: BILIRUBIN,DIRECT 0.1 MG/DL (0.0-0.3); BILIRUBIN,INDIRECT 0.1 MG/DL
[2021-09-03] MEDS: DOXYCYCLINE 100 MG (VIBRAMYCIN) TABLET PO SCH ×2 (06:07→17:25)
[2021-09-03] MEDS: LEVOTHYROXINE 100 MCG (LEVOTHROID) TAB PO SCH (06:07)
[2021-09-03] MEDS: BENZONATATE 100 MG (TESSALON) CAPSULE PO PRN ×3 (06:07→23:40)
[2021-09-03] MEDS: LEVOTHYROXINE 75 MCG (LEVOTHROID) TABLET PO SCH (06:07)
[2021-09-03] MEDS: ONDANSETRON 4 MG/2 ML (SDV) Z0FRAN IV PRN (06:57)
[2021-09-03] MEDS: MEROPENEM 1,000 MG in WATER (STERILE) FOR INJECTION 20 ML IV SCH ×2 (08:25→17:25)
[2021-09-03] MEDS: PANTOPRAZOLE 40 MG (PROTONIX) TAB PO SCH (08:25)
[2021-09-03] MEDS ORDERED: LEVO112C4 PO (08:33)
[2021-09-03] MEDS ORDERED: PNV1TABL9 PO (08:33)
[2021-09-03] MEDS ORDERED: AZIT250T12 PO (08:33)
[2021-09-03] MEDS ORDERED: ATOR80TA76 PO (08:33)
[2021-09-03] MEDS ORDERED: LEVO112C2 PO (08:36)
[2021-09-03] MEDS: RT-ALBUTEROL/IPRATROPIUM 3 ML (DUONEB) VIAL INH PRN ×2 (09:30→16:07)
[2021-09-03] MEDS ORDERED: hydrOXYzine (ATARAX) 10 MG TAB PO PRN (10:15)
[2021-09-03] MEDS: IBUPROFEN 800 MG (MOTRIN) TAB PO PRN (10:43)
[2021-09-03] MEDS: ACETAMINOPHEN 325 MG TABLET PO PRN (11:57)
[2021-09-03] MEDS ORDERED: BENZONATATE 100 MG (TESSALON) CAPSULE PO PRN (12:15)
[2021-09-03] MEDS ORDERED: HYDROcodone/APAP 5 MG/325 MG (LORTAB) TAB PO PRN (12:15)
[2021-09-03] MEDS ORDERED: guaiFENesin/DM (ROBITUSSIN DM) 10 ML UDC PO PRN (12:45)
--- NOTE | 2021-09-03 13:18 | Progress Note - Hospitalist ---
Subjective HPI/CC On Admission Date Seen by Provider: Sep 03, 2021 Time Seen by Provider: 13:13 Jackie Bowman is a 56-year-old female with past medical history of AML s/p bone marrow transplant 2002, asplenia, hyperlipidemia, GERD, who presented with upper respiratory symptoms. She reports that she has been having sinus congest ion and pain. She also reports having a sore throat and chest congestion. She has also been having fevers. She is not having any chest pain or shortness of breath. She is having a productive cough. She denies any abdominal pain, nausea, vomiting, or diarrhea. She denies dysuria, frequency, or urgency. Subjective/Events-last exam Pt reports feeling ok today but had a severe coughing fit overnight. Not as bad today. Thinks that she had a fever on last vital check though those are not in the computer yet. Focused Exam Lactate Level 08/31/21 20:10: Lactic Acid Level 2.00 09/01/21 01:07: Lactic Acid Level 1.57 09/01/21 03:54: Lactic Acid Level 1.49 Time of Focused Exam: 14:22 Objective Exam Vital Signs Vital Signs Date Time Temp Pulse Resp B/P (MAP) Pulse Ox O2 Delivery O2 Flow Rate FiO2 09/03/21 12:31 111 09/03/21 12:00 38.0 20 136/84 (101) Room Air 09/03/21 09:30 93 09/01/21 09:44 0.00 Capillary Refill : Less Than 3 Seconds General Appearance: No Apparent Distress, WD/WN Respiratory: No Respiratory Distress, Wheezing (scant and cleared with cough) Cardiovascular: Regular Rate, Rhythm, No Murmur Gastrointestinal: Normal Bowel Sounds, Soft Neurologic/Psychiatric: Alert, Oriented x3 Results/Procedures Lab Laboratory Tests 09/03/21 05:40 Patient resulted labs reviewed. Imaging: Reviewed Imaging Report Assessment/Plan Assessment and Plan Assess & Plan/Chief Complaint Severe sepsis due to pneumonia Urinary tract infection Urine culture with gram negative tea Continue IV fluids, decrease rate Currently on Merrem and Doxycycline, continue as No supplemental oxygen requirement Reviewed records, has had similar episodes every couple of years last being in 2019 that resolved after a few days Add Advair as was wheezing, continue MAT protocol Antitussives added as well Elevated LFTs- improving Appears chronic Liver ultrasound with borderline hepatomegaly, fatty infiltration Hepatitis panel pending Tick panel pending Hypothyroidism TSH 20 but T4 normal cont home Levothyroxine h/o of AML s/p BMT in 2001 Continue broad spectrum abx Consider oncology consult if no improvement tomorrow DVT prophylaxis: Lovenox Lactic acidosis, resolved DIONE BRISENO MD Sep 03, 2021 13:18
[2021-09-03] MEDS: ENOXAPARIN 40 MG/0.4 ML (LOVENOX) SYR SC SCH (13:50)
[2021-09-03 14:37] LABS: HEPATITIS C ANTIBODY C Non-Reactive (Non-Reactive)
[2021-09-03] MEDS: RT--FLUTICASONE/SALMETEROL 113-14 (AIRDUO RespiCLICK) IH SCH (18:37)
[2021-09-03] MEDS: guaiFENesin/CODEINE (ROBITUSSIN AC) 10ML UDC PO PRN (20:43)
[2021-09-03] MEDS: PSYLLIUM POWDER (METAMUCIL) 5.8 GM PACKET PO SCH (20:44)
[2021-09-03] MEDS ORDERED: ADVAIR HFA 115/21 MCG INHALER 8 GM IH SCH (21:00)
[2021-09-04] MEDS: MEROPENEM 1,000 MG in WATER (STERILE) FOR INJECTION 20 ML IV SCH ×3 (02:06→17:13)
[2021-09-04 04:59] VITALS: BP 137/91
[2021-09-04] MEDS: LEVOTHYROXINE 100 MCG (LEVOTHROID) TAB PO SCH (05:23)
[2021-09-04] MEDS: LEVOTHYROXINE 75 MCG (LEVOTHROID) TABLET PO SCH (05:23)
[2021-09-04] MEDS: guaiFENesin/CODEINE (ROBITUSSIN AC) 10ML UDC PO PRN ×3 (05:23→20:54)
[2021-09-04] MEDS: DOXYCYCLINE 100 MG (VIBRAMYCIN) TABLET PO SCH ×2 (05:23→17:12)
[2021-09-04 05:51] LABS: BASOPHILS # (AUTO) 0.2 10^3/uL (0.0-0.1); BASOPHILS % (AUTO) 2 % (0-10); EOSINOPHILS # (AUTO) 0.6 10^3/uL (0.0-0.3); EOSINOPHILS % (AUTO) 5 % (0-10); HEMATOCRIT 40 % (35-52); LYMPHOCYTES # (AUTO) 3.9 10^3/uL (1.0-4.0); LYMPHOCYTES % (AUTO) 35 % (12-44); MEAN CORPUSCULAR HEMOGLOBIN 31 pg (25-34); MEAN CORPUSCULAR HGB CONC 33 g/dL (32-36); MEAN CORPUSCULAR VOLUME 94 fL (80-99); MEAN PLATELET VOLUME 9.8 fL (9.0-12.2); MONOCYTES % (AUTO) 9 % (0-12); NEUTROPHILS # (AUTO) 5.6 10^3/uL (1.8-7.8); NEUTROPHILS % (AUTO) 49 % (42-75); PLATELET COUNT 440 10^3/uL (130-400); WHITE BLOOD COUNT 11.3 10^3/uL (4.3-11.0)
[2021-09-04 06:05] LABS: POTASSIUM 3.6 MMOL/L (3.6-5.0)
[2021-09-04 06:07] LABS: CALCIUM 10.6 MG/DL (8.5-10.1)
[2021-09-04 06:11] LABS: CREATININE SERUM 1.1 MG/DL (0.60-1.30)
[2021-09-04] MEDS: ONDANSETRON 4 MG/2 ML (SDV) Z0FRAN IV PRN (06:33)
[2021-09-04] MEDS: RT--FLUTICASONE/SALMETEROL 113-14 (AIRDUO RespiCLICK) IH SCH ×2 (07:15→21:34)
[2021-09-04 08:00] VITALS: BP 134/65
[2021-09-04] MEDS: PANTOPRAZOLE 40 MG (PROTONIX) TAB PO SCH (08:39)
[2021-09-04] MEDS: LORATADINE (CLARITIN) 10 MG TAB PO SCH (08:39)
[2021-09-04] MEDS: PSEUDOEPHEDRINE HCL 30 MG (SUDAFED) TAB PO PRN (10:17)
[2021-09-04 12:00] VITALS: BP 136/88
--- NOTE | 2021-09-04 13:00 | Pulmonary Consultation ---
History of Present Illness History of Present Illness Date Seen by Provider: Sep 04, 2021 Time Seen by Provider: 12:55 Date of Admission 56-year-old female with past medical history of AML s/p bone marrow transplant 2002, asplenia, hyperlipidemia, GERD, who presented with upper respiratory symptoms including cough, sinus congestion and pain. Pulmonary consulted re: cough and concern for pneumonia. States when she first arrived noticed dry cough with no sputum production. Was noted to have leukocytosis upon admission as well as elevated procalcitonin. CXR however with no evidence of consolidation. States has had chronic cough which is worse at night. Notes that in past has improved when she is on inhalers. Feels her sinuses have also improved. Denies any drainage in her throat.. Allergies and Home Medications Allergies Coded Allergies: No Known Drug Allergies (Unverified , 10/08/15) Home Medications Atorvastatin Calcium 80 Mg Tablet, 80 MG PO HS, (Reported) Azithromycin 250 Mg Tablet, 250 MG PO DAILY, (Reported) LAST FILLED 08/30/2021 #6 5 DAY SUPPLY Fenofibrate,Micronized 134 Mg Capsule, 134 MG PO HS, (Reported) Lansoprazole 30 Mg Capsule.dr, 30 MG PO DAILY, (Reported) Levothyroxine Sodium 112 Mcg Capsule, 112 MCG PO DAILY, (Reported) Pnv Cmb#21/Iron/Folic Acid 1 Each Tablet, 1 EACH PO DAILY, (Reported) Past Medical/Social/Family Hx Patient Social History Marrital Status: Tobacco Use?: No Smoking Status: Never a Smoker Use of E-Cig and/or Vaping dev: No Substance use?: No Alcohol Use?: Yes Alcohol Frequency: Once in a while Pt stated abuse/neglect: No Immunizations Up To Date Influenza Vaccine Up-to-Date: No; Not Current First/Initial COVID19 Vaccinat: 02/09/2021 Second COVID19 Vaccination Ahsan: 03/08/2021 Tetanus Booster (TDap): Unknown Date of Pneumonia Vaccine: Aug 31, 2018 Current Status status: No Advance Directives: Yes Advance Directive Location: Unable to obtain copy Communicates: Verbally Primary Language: Egyptian Preferred Spoken Language: Egyptian Is interpretation needed?: No Implanted or Applied Medical D: None Review of Systems Constitutional: no symptoms reported, see HPI Respiratory: see HPI, cough Cardiovascular: see HPI Genitourinary: see HPI Sepsis Event Evaluation Height, Weight, BMI Height: 5'4.00" Weight: 164lbs. 5.0oz. 74.914453ge; 27.47 BMI Method:Stated Exam Exam Patient acknowledged, consented, and participated in this virtual visit which was conducted using real time audio/video Vital Signs Date Time Temp Pulse Resp B/P (MAP) Pulse Ox O2 Delivery O2 Flow Rate FiO2 09/04/21 08:00 37.2 85 20 134/65 (88) 90 Nasal Cannula 1.00 09/04/21 08:00 Room Air 09/04/21 07:15 97 Room Air 09/04/21 06:37 83 09/04/21 04:59 36.0 84 18 137/91 (106) 92 Nasal Cannula 1.00 09/04/21 01:00 81 09/03/21 23:40 36.9 88 20 167/89 (115) 94 Nasal Cannula 2.00 09/03/21 20:50 Room Air 09/03/21 20:19 37.0 91 18 155/93 (113) 90 09/03/21 19:00 106 09/03/21 18:37 97 Room Air 09/03/21 16:07 97 Room Air 09/03/21 16:00 37.2 101 20 125/78 (94) 90 Room Air I & O 09/04/21 07:00 Intake Total 1175 ml Balance 1175 ml Height & Weight Height: 5'4.00" Weight: 164lbs. 5.0oz. 74.994493wz; 27.47 BMI Method:Stated General Appearance: No Apparent Distress, WD/WN HEENT: PERRL/EOMI, Pharynx Normal Neck: Normal Inspection, Supple Respiratory: No Respiratory Distress, Wheezing (scant and cleared with cough) Cardiovascular: Regular Rate, Rhythm, No Murmur Capillary Refill: Less Than 3 Seconds Peripheral Pulses: 2+ Radial Pulses (R), 2+ Radial Pulses (L) Extremity: Normal Inspection, Non Tender, No Pedal Edema Neurologic/Psychiatric: Alert, Oriented x3 Skin: Normal Color, Warm/Dry Results Lab Laboratory Tests 09/03/21 05:40 09/04/21 05:40 Radiology Date of Exam:09/02/21 CT MAXILLOFACIAL W PROCEDURE: CT maxillofacial with contrast. TECHNIQUE: After intravenous administration of contrast, axial images were obtained through the face and reformatted into coronal and sagittal planes. Auto Exposure Controls were utilized during the CT exam to meet ALARA standards for radiation dose reduction. INDICATION: Pain, tooth abscess COMPARISON: None available. FINDINGS: The frontal sinuses are clear. Mild mucosal thickening and fluid within scattered ethmoidal air cells. Minimal mucosal thickening within the sphenoid sinuses. The bilateral mastoid air cells and middle ear cavities are clear. Mild mucosal thickening within the right maxillary sinus with minimal mucosal thickening within the left maxillary sinus. The lamina papyracea are intact. Rightward deviation of the nasal septum. Small leftward projecting nasal spur. No temporomandibular joint dislocation. An impacted tooth is identified involving the anterior right maxilla, posterior to the right sided maxillary incisors. No acute facial fracture. No osseous destruction. No significant periapical lucency. The muscles of mastication are unremarkable. Parapharyngeal fat is symmetric and well maintained. The visualized salivary glands are unremarkable. No focal fluid collection. No pathologically enlarged lymph nodes within the [id number]. IMPRESSION: Minimal paranasal sinus disease without air-fluid level to suggest acute sinusitis. No acute facial fracture or osseous destruction. No focal fluid collection. Impacted tooth is noted involving the anterior aspect of the right maxilla immediately posterior to the right maxillary incisors. Date of Exam:09/01/21 CHEST 1 VIEW, AP/PA ONLY INDICATION: Pneumonia COMPARISON: 08/31/2021 TECHNIQUE: Single radiograph of the chest dated 09/01/2021 FINDINGS: The cardiac silhouette is within normal limits in size. No significant pulmonary vascular congestion. The lungs are clear of focal pulmonary opacity. No pleural effusion. No pneumothorax. No acute osseous abnormality. IMPRESSION: Similar examination without acute cardiopulmonary abnormality. Assessment/Plan Assessment/Plan 56-year-old female with past medical history of AML s/p bone marrow transplant 2002, asplenia, hyperlipidemia, GERD, who presented with upper respiratory s ymptoms including cough, sinus congestion and pain. Chronic cough: Likely 2/2 undiagnosed asthma vs Post nasal gtt. Notes that has been experiencing coughing spells mostly at night which have improved when she uses albuterol in hospital. No evidence of consolidation or infiltrative process. -At this time would recommend continuing inhalers and can consider starting on singulair. -Will order flonase. -Will need f/u in pulmonary clinic as outpatient for PFTs MARY ALFORD MD Sep 04, 2021 12:59
--- NOTE | 2021-09-04 13:34 | Progress Note - Hospitalist ---
Subjective HPI/CC On Admission Date Seen by Provider: Sep 04, 2021 Time Seen by Provider: 13:29 Jackie Bowman is a 56-year-old female with past medical history of AML s/p bone marrow transplant 2002, asplenia, hyperlipidemia, GERD, who presented with upper respiratory symptoms. She reports that she has been having sinus congest ion and pain. She also reports having a sore throat and chest congestion. She has also been having fevers. She is not having any chest pain or shortness of breath. She is having a productive cough. She denies any abdominal pain, nausea, vomiting, or diarrhea. She denies dysuria, frequency, or urgency. Subjective/Events-last exam Pt reports doing well today. Cough improved. NO further fevers. Focused Exam Time of Focused Exam: 14:22 Objective Exam Vital Signs Vital Signs Date Time Temp Pulse Resp B/P (MAP) Pulse Ox O2 Delivery O2 Flow Rate FiO2 09/04/21 08:00 37.2 85 20 134/65 (88) 90 Nasal Cannula 1.00 Capillary Refill : Less Than 3 Seconds General Appearance: No Apparent Distress, WD/WN Respiratory: Lungs Clear, No Respiratory Distress Cardiovascular: Regular Rate, Rhythm, No Murmur Gastrointestinal: Normal Bowel Sounds, Non Tender, Soft Results/Procedures Lab Laboratory Tests 09/04/21 05:40 Patient resulted labs reviewed. Imaging: Reviewed Imaging Report Assessment/Plan Assessment and Plan Assess & Plan/Chief Complaint Severe sepsis due to pneumonia Urinary tract infection Urine culture with klebsiella Continue IV fluids, decrease rate Currently on Merrem, DC doxycycline as tick panel is negative No supplemental oxygen requirement Reviewed records, has had similar episodes every couple of years last being in 2019 that resolved after a few days Continue Advair, add Flonase for nasal congestion Antitussives added as well Pulm consulted, appreciate recs Elevated LFTs- improving Appears chronic Liver ultrasound with borderline hepatomegaly, fatty infiltration Hepatitis panel negative Tick panel negative Hypothyroidism TSH 20 but T4 normal cont home Levothyroxine h/o of AML s/p BMT in 2001 Continue broad spectrum abx On no immune suppressants DVT prophylaxis: Lovenox Lactic acidosis, resolved DIONE BRISENO MD Sep 04, 2021 13:34
[2021-09-04] MEDS: ENOXAPARIN 40 MG/0.4 ML (LOVENOX) SYR SC SCH (14:59)
[2021-09-04] MEDS: FLUTICASONE NASAL SPRAY (FLONASE) 16 GM BTL NS SCH (14:59)
[2021-09-04 16:00] VITALS: BP 120/71
[2021-09-04 20:03] VITALS: BP 144/96
[2021-09-04] MEDS: PSYLLIUM POWDER (METAMUCIL) 5.8 GM PACKET PO SCH (20:54)
[2021-09-05 00:12] VITALS: BP 136/84
[2021-09-05] MEDS: MEROPENEM 1,000 MG in WATER (STERILE) FOR INJECTION 20 ML IV SCH ×2 (00:13→09:31)
[2021-09-05] MEDS: LEVOTHYROXINE 75 MCG (LEVOTHROID) TABLET PO SCH (05:40)
[2021-09-05] MEDS: LEVOTHYROXINE 100 MCG (LEVOTHROID) TAB PO SCH (05:40)
[2021-09-05] MEDS: DOXYCYCLINE 100 MG (VIBRAMYCIN) TABLET PO SCH (05:40)
[2021-09-05 05:53] LABS: BASOPHILS # (AUTO) 0.2 10^3/uL (0.0-0.1); BASOPHILS % (AUTO) 2 % (0-10); EOSINOPHILS # (AUTO) 0.8 10^3/uL (0.0-0.3); EOSINOPHILS % (AUTO) 8 % (0-10); HEMATOCRIT 38 % (35-52); HEMOGLOBIN 12.7 g/dL (11.5-16.0); LYMPHOCYTES % (AUTO) 56 % (12-44); MEAN CORPUSCULAR HEMOGLOBIN 31 pg (25-34); MEAN CORPUSCULAR HGB CONC 33 g/dL (32-36); MEAN CORPUSCULAR VOLUME 94 fL (80-99); MONOCYTES # (AUTO) 0.7 10^3/uL (0.0-1.0); MONOCYTES % (AUTO) 6 % (0-12); NEUTROPHILS % (AUTO) 28 % (42-75); PLATELET COUNT 440 10^3/uL (130-400); WHITE BLOOD COUNT 10.7 10^3/uL (4.3-11.0)
[2021-09-05 06:08] LABS: POTASSIUM 3.6 MMOL/L (3.6-5.0)
[2021-09-05 06:10] LABS: CALCIUM 10.6 MG/DL (8.5-10.1)
[2021-09-05 06:14] LABS: CREATININE SERUM 1.04 MG/DL (0.60-1.30)
[2021-09-05 07:51] VITALS: BP 166/78
[2021-09-05] MEDS: RT--FLUTICASONE/SALMETEROL 113-14 (AIRDUO RespiCLICK) IH SCH (07:54)
[2021-09-05] MEDS: PANTOPRAZOLE 40 MG (PROTONIX) TAB PO SCH (09:31)
[2021-09-05] MEDS: LORATADINE (CLARITIN) 10 MG TAB PO SCH (09:31)
[2021-09-05] MEDS: FLUTICASONE NASAL SPRAY (FLONASE) 16 GM BTL NS SCH (09:31)
[2021-09-05 11:35] VITALS: BP 127/83
[2021-09-05] MEDS ORDERED: CEFD300C3 PO (11:40)
[2021-09-05] MEDS ORDERED: FLUT1AER4 IH (11:40)
[2021-09-05] MEDS ORDERED: GFCD10B PO (11:40)
[2021-09-05] MEDS ORDERED: FLUT16SP22 NS (11:40)
--- NOTE | 2021-09-05 11:41 | Discharge Inst-Simple/Standard ---
Discharge Inst-Standard Discharge Medications New, Converted or Re-Newed RX: Transmitted to Pharmacy Patient Instructions/Follow Up Plan of Care/Instructions/FU: Please continue to take your medications as written. Please follow up with your primary care doctor to follow up this hospital stay. Activity as Tolerated: Yes Discharge Diet: No Restrictions Return to The Hospital For: Fever, worsening cough, sputum, shortness of breath, if you feel you are getting worse. DIONE BRISENO MD Sep 05, 2021 11:41
--- NOTE | 2021-09-05 11:43 | Discharge Summary ---
Diagnosis/Chief Complaint Date of Admission Aug 31, 2021 at 14:15 Date of Discharge Discharge Date: Sep 05, 2021 Admission Diagnosis Sepsis Primary Care Collin Buck MD Discharge Diagnosis (1) Severe sepsis Status: Acute (2) Pneumonia Status: Acute (3) History of asplenia Status: Chronic (4) Elevated LFTs Status: Acute (5) Lactic acidosis Status: Resolved Discharge Summary Discharge Physical Exam Allergies: Coded Allergies: No Known Drug Allergies (Unverified , 10/08/15) Vitals & I&Os Vital Signs Date Time Temp Pulse Resp B/P (MAP) Pulse Ox O2 Delivery O2 Flow Rate FiO2 09/05/21 11:35 36.5 86 16 127/83 (98) 94 Nasal Cannula 2.00 Hospital Course Labs (last 24 hrs) Laboratory Tests 09/05/21 05:15: White Blood Count 10.7, Red Blood Count 4.08, Hemoglobin 12.7, Hematocrit 38, Mean Corpuscular Volume 94, Mean Corpuscular Hemoglobin 31, Mean Corpuscular Hemoglobin Concent 33, Red Cell Distribution Width 13.7, Platelet Count 440H, Mean Platelet Volume 10.0, Immature Granulocyte % (Auto) 0, Neutrophils (%) (Auto) 28L, Lymphocytes (%) (Auto) 56H, Monocytes (%) (Auto) 6, Eosinophils (%) (Auto) 8, Basophils (%) (Auto) 2, Neutrophils # (Auto) 3.0, Lymphocytes # (Auto) 6.0H, Monocytes # (Auto) 0.7, Eosinophils # (Auto) 0.8H, Basophils # (Auto) 0.2H , Immature Granulocyte # (Auto) 0.0, Sodium Level 137, Potassium Level 3.6, Chloride Level 96L, Carbon Dioxide Level 27, Anion Gap 14, Blood Urea Nitrogen 11, Creatinine 1.04, Estimat Glomerular Filtration Rate 55, BUN/Creatinine Ratio 11, Glucose Level 177H, Calcium Level 10.6H Microbiology 08/31/21 Blood Culture - Preliminary, Resulted No growth 08/31/21 Gram Stain - Final, Complete 08/31/21 Sputum Culture - Final, Complete Usual upper respiratory nato 08/31/21 Urine Culture - Final, Complete Klebsiella pneumoniae Patient resulted labs reviewed. Pending Labs Laboratory Tests 09/05/21 05:15: White Blood Count 10.7, Red Blood Count 4.08, Hemoglobin 12.7, Hematocrit 38, Mean Corpuscular Volume 94, Mean Corpuscular Hemoglobin 31, Mean Corpuscular Hemoglobin Concent 33, Red Cell Distribution Width 13.7, Platelet Count 440, M adam Platelet Volume 10.0, Immature Granulocyte % (Auto) 0, Neutrophils (%) (Auto) 28, Lymphocytes (%) (Auto) 56, Monocytes (%) (Auto) 6, Eosinophils (%) (Auto) 8, Basophils (%) (Auto) 2, Neutrophils # (Auto) 3.0, Lymphocytes # (Auto) 6.0, Monocytes # (Auto) 0.7, Eosinophils # (Auto) 0.8, Basophils # (Auto) 0.2, Immature Granulocyte # (Auto) 0.0, Sodium Level 137, Potassium Level 3.6, Chloride Level 96, Carbon Dioxide Level 27, Anion Gap 14, Blood Urea Nitrogen 11, Creatinine 1.04, Estimat Glomerular Filtration Rate 55, BUN/Creatinine Ratio 11, Glucose Level 177, Calcium Level 10.6 Imaging: Reviewed Imaging Report Discharge Home Medications: Active Scripts Active Cefdinir 300 Mg Capsule 300 Mg PO BID Fluticasone Propionate 16 Gm [place].susp 0 [place] NS DAILY Fluticasone-Salmeterol 113-14 (Fluticasone/Salmeterol) 1 Each Aer.pow.ba 0 Each IH RTBID Robitussin Ac (Codeine) Syrup (Guaifenesin/Codeine Phosphate) 10 Ml Syrp 10 Ml PO Q4H PRN Reported Tirosint (Levothyroxine Sodium) 112 Mcg Capsule 112 Mcg PO DAILY Complete Caplet (Pnv Cmb#21/Iron/Folic Acid) 1 Each Tablet 1 Each PO DAILY Atorvastatin Calcium 80 Mg Tablet 80 Mg PO HS Azithromycin 250 Mg Tablet 250 Mg PO DAILY LAST FILLED 08/30/2021 #6 5 DAY SUPPLY Fenofibrate (Fenofibrate,Micronized) 134 Mg Capsule 134 Mg PO HS Lansoprazole 30 Mg Capsule.dr 30 Mg PO DAILY Instructions to patient/family Please see electronic discharge instructions given to patient. Problem Qualifiers (1) Pneumonia: Pneumonia type: due to unspecified organism Laterality: unspecified laterality Lung location: unspecified part of lung Qualified Codes: J18.9 - Pneumonia, unspecified organism DIONE BRISENO MD Sep 05, 2021 11:43
== END 2021-09-05 13:15 | disposition home or self-care (01) | DRG 871 ==
LOC: EDUNIT# 12:26 → ER 12:28 → 4TH 14:15
PROVIDERS: ADMIT Internal Medicine; ATTEND Internal Medicine
DX: A41.9 Sepsis, unspecified organism (principal); J18.9 Pneumonia, unspecified organism; N39.0 Urinary tract infection, site not specified; Z94.81 Bone marrow transplant status; E87.2 Acidosis; R65.20 Severe sepsis without septic shock; E78.5 Hyperlipidemia, unspecified; K21.9 Gastro-esophageal reflux disease without esophagitis; E03.9 Hypothyroidism, unspecified; E78.00 Pure hypercholesterolemia, unspecified; B96.1 Klebsiella pneumoniae [K. pneumoniae] as the cause of diseases classified elsewhere; Z90.81 Acquired absence of spleen; Z79.899 Other long term (current) drug therapy; Z79.890 Hormone replacement therapy; Z92.3 Personal history of irradiation; Z92.21 Personal history of antineoplastic chemotherapy; Z20.822 Contact with and (suspected) exposure to COVID-19; Z23 Encounter for immunization
CPT/HCPCS: 36415; 70487; 71045; 76705; 80048; 80053; 80074; 80076; 81000; 83605; 84145; 84439; 84443; 85025; 85610; 85730; 86618; 86666; 86668; 86738; 86757; 87040; 87070; 87077; 87088; 87186; 87205; 87636; 94640; 94664; 94760

== ENCOUNTER → 2021-09-27 | Outpatient (CLI) | payer OTHER, MEDICARE ==
[~2021-09-27] MED LIST changes: +ATOR80TA76 PO; +AZIT250T12 PO; +FLUT16SP22 NS; +FLUT1AER4 IH; +GFCD10B PO; +LEVO112C2 PO; +LEVO112C4 PO; +PNV1TABL9 PO; +RT-ALBUTEROL SULF 2.5 MG/3 ML PRE-MIX VIAL INH ONE
== END ==
LOC: RT 10:45
PROVIDERS: ATTEND Nurse Practitioner Family
DX: R06.00 Dyspnea, unspecified (principal)
CPT/HCPCS: 94060; 94726; 94729

== ENCOUNTER → 2021-11-19 | Outpatient (CLI) | payer OTHER, MEDICARE ==
[~2021-11-19] MED LIST changes: +MONT-40 PO; -MONT10TA32 PO; +MULT-1054 PO; -MULT-985 PO; -RT-ALBUTEROL SULF 2.5 MG/3 ML PRE-MIX VIAL INH ONE
== END ==
LOC: CARD 11:30
PROVIDERS: ATTEND Internal Medicine Cardiovascular Disease
DX: I11.9 Hypertensive heart disease without heart failure (principal)
CPT/HCPCS: 93306

== ENCOUNTER → 2022-03-18 | Outpatient (CLI) | payer OTHER, MEDICARE ==
[~2022-03-18] MED LIST changes: -FENO134C PO; +FENO134C21 PO
--- NOTE | 2022-03-18 11:41 | Diagnostic Imaging Report ---
INDICATION: Routine screening. COMPARISON: 03/16/2021 and 11/05/2019. TECHNIQUE: 2D and 3D bilateral screening mammography was performed with CAD. FINDINGS: Scattered fibroglandular densities are identified bilaterally. Benign nodules in the upper outer right breast are stable. No new mass or malignant-appearing microcalcifications are seen. There are benign calcifications present. The axillae are unremarkable. IMPRESSION: No mammographic features suspicious for malignancy are identified. ACR BI-RADS Category 2: Benign findings. Result letter will be mailed to the patient. Note: At least 10% of breast cancer is not imaged by mammography. Dictated by: Dictated on workstation # [id number]
== END ==
LOC: RAD 10:30
PROVIDERS: ATTEND Internal Medicine
DX: Z12.31 Encounter for screening mammogram for malignant neoplasm of breast (principal)
CPT/HCPCS: 77063; 77067

== ENCOUNTER 2022-04-29 08:16 | Emergency (ER) | payer OTHER, MEDICARE ==
[~2022-04-29] VITALS: Ht 162.5 cm; Wt 72.5 kg
--- NOTE | 2022-04-29 09:07 | ED General ---
General Chief Complaint: General Problems/Pain Stated Complaint: HEADACHE Nursing Triage Note: PT AMB TO RM 7 WITH COMPLAINT OF RIGHT SIDE FOREHEAD BURINING/PAIN. PT STATES SYMPTOMS ARE INTERMITTENT AND STARTED A WEEK AGO. STATES SHE HAD SIMILAR SYMPTOMS OVER A MONTH AGO. STATES STARTED NEW INJECTION FOR CHOLESTEROL. ALSO STATES SHE HAS HAD SINUS SYMPTOMS AND A POSSIBLE TICK BITE. (NIGEL GREGORIO) History of Present Illness Date Seen by Provider: April 29, 2022 Time Seen by Provider: 08:45 Initial Comments 57 year old female with history of AML and CML requiring BMT, chemotherapy, and radiation currently in remission presents to the ED via private vehicle for right unilateral headache. She reports the headache began last week and describes it as a constant burning pain that she rates as 5/10 that has stabbing pain intermittently that she rates as 10/10. The pain briefly went away but came back again after taking her Praluant injection a few days ago. She denies prior history of headaches and has no photosensitivity or GI upset currently or that preceded the headache. She does report having a cold 2 weeks ago prior to the headache and having a fever up to 101.5F at this time. She reports her cold has improved but has spread to her lungs which is a common occurence. She is currently having a productive cough, shortness of breath, and fatigue. (NIGEL GREGORIO) Allergies and Home Medications Allergies Coded Allergies: No Known Drug Allergies (Unverified , 10/08/15) Patient Home Medication List Home Medication List Reviewed: Yes (RICHARD MORFIN MD) Amoxicillin/Potassium Clav (Amox Tr-K Clv 875-125 mg Tab) 875 Mg-125 Mg Tablet, 1 EACH PO BID Prescribed by: RICHARD MORFIN on 04/29/22 1229 Atorvastatin Calcium (Atorvastatin Calcium) 80 Mg Tablet, 80 MG PO HS, (Reported) Entered as Reported by: SHIRA SOTO on 09/03/21 0833 Cefdinir (Cefdinir) 300 Mg Capsule, 300 MG PO BID Prescribed by: DIONE BRISENO on 09/05/21 1140 Fenofibrate,Micronized (Fenofibrate) 134 Mg Capsule, 134 MG PO HS, (Reported) Entered as Reported by: LESLIE COVINGTON on 05/14/20 0217 Fluconazole (Diflucan) 200 Mg Tablet, 200 MG PO DAILY Prescribed by: RICHARD MORFIN on 04/29/22 1231 Fluticasone Propionate (Fluticasone Propionate) 16 Gm [place].susp, 0 SPRAY NS DAILY Prescribed by: DIONE BRISENO on 09/05/21 1140 Fluticasone/Salmeterol (Fluticasone-Salmeterol 113-14) 1 Each Aer.pow.ba, 0 EACH IH RTBID Prescribed by: DIONE BRISENO on 09/05/21 1140 Guaifenesin/Codeine (Robitussin Ac (Codeine) Syrup) 10 Ml Syrp, 10 ML PO Q4H PRN for cough, preferably for PM use Prescribed by: DIONE BRISENO on 09/05/21 1140 Lansoprazole (Lansoprazole) 30 Mg Capsule.dr, 30 MG PO DAILY, (Reported) Entered as Reported by: CLARITA NAVARRO on 04/05/19 1342 Levothyroxine Sodium (Tirosint) 112 Mcg Capsule, 112 MCG PO DAILY, (Reported) Entered as Reported by: SHIRA SOTO on 09/03/21 0836 Pnv Cmb#21/Iron/Folic Acid ( Complete Caplet) 1 Each Tablet, 1 EACH PO DAILY, (Reported) Entered as Reported by: SHIRA SOTO on 09/03/21 0833 Review of Systems Review of Systems Constitutional: No chills, No fever; malaise EENTM: throat pain; No hearing loss, No ear pain, No vision loss Respiratory: cough, short of breath Cardiovascular: No chest pain, No palpitations Gastrointestinal: No abdominal pain, No constipation, No diarrhea, No nausea, No vomiting Genitourinary: No discharge, No dysuria; frequency (normal) : No Musculoskeletal: No muscle pain, No muscle weakness Skin: No change in color, No lesions, No rash Psychiatric/Neurological: No Symptoms Reported Hematologic/Lymphatic: No Symptoms Reported Immunological/Allergic: transplant (history of BMT in 2002) (NIGEL GREGORIO) Past Fqyxtgz-Zgkjtw-Xgrrrh Hx Patient Social History Tobacco Use?: No Use of E-Cig and/or Vaping dev: No Substance use?: No Alcohol Use?: Yes Alcohol Frequency: Once in a while Pt feels they are or have been: No (NIGEL GREGORIO) Immunizations Up To Date Tetanus Booster (TDap): Unknown First/Initial COVID19 Vaccinat: 02/09/2021 Second COVID19 Vaccination Ahsan: 03/08/2021 Third COVID19 Vaccination Date: 02/09/2021 (NIGEL GREGORIO) Seasonal Allergies Seasonal Allergies: No (NIGEL GREGORIO) Past Medical History Surgery/Hospitalization HX: HX SPLEEN REMOVAL, GB, AND UTERUS BONE MARROW TRANSPLANT -AML >15 YEARS, Surgeries: Yes (bone marrow transplant '03, splenectomy, COLONOSCOPY) Abdominal, Gallbladder, Hysterectomy Respiratory: Yes (BRONCHITIS) Pneumonia Currently Using CPAP: No Currently Using BIPAP: No Cardiac: Yes High Cholesterol Neurological: No 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, Menopausal Sexually Transmitted Disease: No Genitourinary: No Gastrointestinal: Yes Gastroesophageal Reflux Musculoskeletal: Yes Arthritis Endocrine: Yes Hypothyroidsim HEENT: No Cancer: Yes Leukemia Did You Recieve Any Treatments: Yes What Type of Treatment Did You: Chemotherapy, Radiation Psychosocial: No Integumentary: No Blood Disorders: No Adverse Reaction/Blood Tranf: Yes (high fever) (NIGEL GREGORIO) Family Medical History Diabetes mellitus 19 FATHER Hypercholesterolemia 19 FATHER 19 MOTHER G8 SISTER Diabetes, Hypertension (NIGEL GREGORIO) Physical Exam Vital Signs Vital Signs - First Documented 04/29/22 08:31 Temp 36.4 Pulse 92 Resp 16 B/P (MAP) 135/100 (112) Pulse Ox 96 O2 Delivery Room Air (RICHARD MORFIN MD) Vital Signs Capillary Refill : Less Than 3 Seconds (NIGEL GREGORIO) Height, Weight, BMI Height: 5'4.00" Weight: 164lbs. 5.0oz. 74.778325lt; 27.00 BMI Method:Stated General Appearance: Obese, Other (appeared to have intermittent significant pain. ) HEENT: PERRL/EOMI, TMs Normal, Pharynx Normal, Moist Mucous Membranes Neck: Full Range of Motion, Other (swollen submandibular lumphnodes bilaterally) Respiratory: Chest Non Tender, Lungs Clear, No Accessory Muscle Use; No Respiratory Distress, No Wheezing; Other (slightly course breath sounds) Cardiovascular: Regular Rate, Rhythm, No Murmur Gastrointestinal: Normal Bowel Sounds, Non Tender, Soft Back: Normal Inspection, No Vertebral Tenderness Extremity: Normal Capillary Refill, Non Tender, No Pedal Edema Neurologic/Psychiatric: Alert, Oriented x3, No Motor/Sensory Deficits, custom protection officer II- XII Norm as Tested Skin: Normal Color, Warm/Dry; No Rash (NIGEL GREGORIO) Progress/Results/Core Measures Suspected Sepsis SIRS Temperature: Pulse: 92 Respiratory Rate: 16 Laboratory Tests 04/29/22 10:21: White Blood Count 11.4H Blood Pressure 135 /100 Mean: 112 Laboratory Tests 04/29/22 10:21: Creatinine 1.02, Platelet Count 536H (NIGEL GREGORIO) Results/Orders Lab Results Laboratory Tests Test 04/29/22 10:01 04/29/22 10:21 Range/Units SARS-CoV-2 RNA (RT-PCR) Not Detected Not Detecte White Blood Count 11.4 H 4.3-11.0 10^3/uL Red Blood Count 4.57 3.80-5.11 10^6/uL Hemoglobin 14.1 11.5-16.0 g/dL Hematocrit 42 35-52 % Mean Corpuscular Volume 93 80-99 fL Mean Corpuscular Hemoglobin 31 25-34 pg Mean Corpuscular Hemoglobin Concent 33 32-36 g/dL Red Cell Distribution Width 13.7 10.0-14.5 % Platelet Count 536 H 130-400 10^3/uL Mean Platelet Volume 9.7 9.0-12.2 fL Immature Granulocyte % (Auto) 0 % Neutrophils (%) (Auto) 53 42-75 % Lymphocytes (%) (Auto) 35 12-44 % Monocytes (%) (Auto) 6 0-12 % Eosinophils (%) (Auto) 3 0-10 % Basophils (%) (Auto) 2 0-10 % Neutrophils # (Auto) 6.0 1.8-7.8 10^3/uL Lymphocytes # (Auto) 4.0 1.0-4.0 10^3/uL Monocytes # (Auto) 0.7 0.0-1.0 10^3/uL Eosinophils # (Auto) 0.4 H 0.0-0.3 10^3/uL Basophils # (Auto) 0.3 H 0.0-0.1 10^3/uL Immature Granulocyte # (Auto) 0.0 0.0-0.1 10^3/uL Erythrocyte Sedimentation Rate 10 0-30 MM/HR Sodium Level 139 135-145 MMOL/L Potassium Level 4.0 3.6-5.0 MMOL/L Chloride Level 101 98-107 MMOL/L Carbon Dioxide Level 22 21-32 MMOL/L Anion Gap 16 H 5-14 MMOL/L Blood Urea Nitrogen 22 H 7-18 MG/DL Creatinine 1.02 0.60-1.30 MG/DL Estimat Glomerular Filtration Rate 64 BUN/Creatinine Ratio 22 Glucose Level 160 H 70-105 MG/DL Calcium Level 9.8 8.5-10.1 MG/DL C-Reactive Protein High Sensitivity 0.18 0.00-0.50 MG/DL (RICHARD MORFIN MD) My Orders Orders - RICHARD MORFIN MD Chest Pa/Lat (2 View) (04/29/22 09:24) Covid 19 Inhouse Test (04/29/22 09:25) Isolation Central Supply Req (04/29/22 09:25) Ed Iv/Invasive Line Start (04/29/22 10:04) Cbc With Automated Diff (04/29/22 10:04) Basic Metabolic Panel (04/29/22 10:04) Hs C Reactive Protein (04/29/22 10:04) Erythrocyte Sedimentation Rate (04/29/22 10:04) Ketorolac Injection (Toradol Injection) (04/29/22 10:15) (RICHARD MORFIN MD) Medications Given in ED (RICHARD MORFIN MD) Vital Signs/I&O 04/29/22 04/29/22 08:31 12:48 Temp 36.4 Pulse 92 Resp 16 B/P (MAP) 135/100 (112) 153/106 Pulse Ox 96 O2 Delivery Room Air (RICHARD MORFIN MD) Vital Signs/I&O Capillary Refill : Less Than 3 Seconds (NIGEL GREGORIO) Blood Pressure Mean: 112 Progress Note : Time: 12:24 Progress Note Patient seen and examined by me, 57-year-old female with cough, congestion, facial pain, headache low-grade fever. I have reviewed the medical student's documentation and examination, I agree with it as written. Patient's labs are reassuring, mildly elevated total white blood cell count. Negative CRP, negative sed rate. Chemistry is also reassuring. Chest x-ray shows no acute pulmonary abnormality. Her exam is consistent with a sinusitis type picture. She does have right temporal tenderness however with the negative sed rate I am not overly concerned for temporal arteritis. I will treat her as her symptoms have been going on for greater than 2 weeks for acute sinusitis. Recommend [id number] Aleve at prescription strength as well as we will put her on Augmentin and advised use of Flonase. We talked about return precautions. If she is not having much improvement in the next 24 to 48 hours she should return for further studies and imaging. Patient herself is concerned for a "brain infection". Nothing on her examination or in her history has me concern for meningitis/encephalitis. After much discussion, all questions are sought and answered. Patient is comfortable with plan of discharge (RICHARD MORFIN MD) Diagnostic Imaging Diagonstic Imaging: Xray Plain Films/CT/US/NM/MRI: chest Comments See preliminary chest x-ray report below: NAME: [facility] REC#: [id number] PT STATUS: REG ER : 1965 PHYSICIAN: RICHARD MORFIN MD ADMIT DATE: 04/29/22/ER Draft Date of Exam:04/29/22 CHEST PA/LAT (2 VIEW) INDICATION: Shortness of breath and cough. Comparison is made with prior exam of to 01/25/20. PA and lateral views were obtained FINDINGS: The heart size, mediastinal configuration, and pulmonary vascularity are within normal limits. There is no pleural effusion, pneumothorax, or pneumonia. The osseous structures are unremarkable. IMPRESSION: No acute cardiopulmonary abnormality. Dictated on workstation # [id number] Dict: 04/29/22 1056 Trans: 04/29/22 1104 [facility] [id number] Interpreted by: GURJIT LYONS MD Electronically signed by: (NIGEL GREGORIO) Departure Impression Primary Impression: Sinusitis Qualified Codes: J01.10 - Acute frontal sinusitis, unspecified Additional Impressions: Headache Qualified Codes: G44.209 - Tension-type headache, unspecified, not intractable Bronchitis Disposition: HOME, SELF-CARE Condition: Stable Departure-Patient Inst. Decision time for Depature: 12:27 (RICHARD MORFIN MD) Referrals: SARAH SADLER MD (PCP/Family) Primary Care Physician Patient Instructions: Sinusitis, Adult ED Add. Discharge Instructions: Drink lots of fluids to stay well-hydrated. You can use [id number] Flonase as directed on the packaging for sinus congestion. You should use it throughout the duration of your antibiotics which will be 10 days. Take the antibiotics twice a day for the next 10 days. I have also prescribed you some Diflucan to help benjamin off the yeast infection. If after 1 to 2 days on the antibiotics you will have still severe headache, develops fever over 101, have nausea vomiting or increasing shortness of breath please come back to the emergency room for reevaluation. Please follow-up with your primary care provider. Scripts Fluconazole (Diflucan) 200 Mg Tablet 200 MG PO DAILY, #2 TAB take one today and 1 more in 7 days Prov: RICHARD MORFIN MD 04/29/22 Amoxicillin/Potassium Clav (Amox Tr-K Clv 875-125 mg Tab) 875 Mg-125 Mg Tablet 1 EACH PO BID, #20 TAB Prov: RICHARD MROFIN MD 04/29/22 Verification and Attestation of Medical Student E/M Service A medical student performed and documented this service in my presence. I reviewed and verified all information documented by the medical student and made modifications to such information, when appropriate. I personally performed the physical exam and medical decision making. Richard Morfin, April 29, 2022,12:31 (RICHARD MORFIN MD) Copy Copies To 1: SARAH SADLER MD, CARSON April 29, 2022 09:07 RIHCARD MORFIN MD April 29, 2022 12:29
[2022-04-29] MEDS ORDERED: KETOROLAC 30 MG/ML VIAL IVP ONE (10:15)
[2022-04-29 10:28] LABS: BASOPHILS # (AUTO) 0.3 10^3/uL (0.0-0.1); BASOPHILS % (AUTO) 2 % (0-10); EOSINOPHILS # (AUTO) 0.4 10^3/uL (0.0-0.3); EOSINOPHILS % (AUTO) 3 % (0-10); HEMATOCRIT 42 % (35-52); HEMOGLOBIN 14.1 g/dL (11.5-16.0); LYMPHOCYTES % (AUTO) 35 % (12-44); MEAN CORPUSCULAR HEMOGLOBIN 31 pg (25-34); MEAN CORPUSCULAR HGB CONC 33 g/dL (32-36); MEAN CORPUSCULAR VOLUME 93 fL (80-99); MEAN PLATELET VOLUME 9.7 fL (9.0-12.2); MONOCYTES # (AUTO) 0.7 10^3/uL (0.0-1.0); MONOCYTES % (AUTO) 6 % (0-12); NEUTROPHILS % (AUTO) 53 % (42-75); PLATELET COUNT 536 10^3/uL (130-400); WHITE BLOOD COUNT 11.4 10^3/uL (4.3-11.0)
[2022-04-29 10:45] LABS: CALCIUM 9.8 MG/DL (8.5-10.1)
[2022-04-29 10:49] LABS: CREATININE SERUM 1.02 MG/DL (0.60-1.30)
--- NOTE | 2022-04-29 11:04 | Diagnostic Imaging Report ---
INDICATION: Shortness of breath and cough. Comparison is made with prior exam of to 01/25/20. PA and lateral views were obtained FINDINGS: The heart size, mediastinal configuration, and pulmonary vascularity are within normal limits. There is no pleural effusion, pneumothorax, or pneumonia. The osseous structures are unremarkable. IMPRESSION: No acute cardiopulmonary abnormality. Dictated by: Dictated on workstation # [id number]
[2022-04-29 11:27] LABS: ERYTHROCYTE SEDIMENTATION RATE 10 MM/HR (0-30)
[2022-04-29] MEDS ORDERED: AMOX1TAB12 PO (12:29)
[2022-04-29] MEDS ORDERED: FLUC200T PO (12:31)
[2022-04-29 12:48] VITALS: BP 153/106
== END 2022-04-29 12:48 | disposition home or self-care (01) ==
LOC: EDUNIT# 08:16 → ER 08:17
DX: G44.209 Tension-type headache, unspecified, not intractable (principal); J01.10 Acute frontal sinusitis, unspecified; J40 Bronchitis, not specified as acute or chronic; D72.829 Elevated white blood cell count, unspecified; Z20.822 Contact with and (suspected) exposure to COVID-19
CPT/HCPCS: 36415; 71046; 80048; 85025; 85652; 86141; 87636

== ENCOUNTER 2022-05-01 11:53 | Emergency (ER) | payer OTHER, MEDICARE ==
[~2022-05-01] VITALS: Ht 162 cm; Wt 72.0 kg
[~2022-05-01 11:53] MED LIST changes: +AMOX1TAB12 PO; +FLUC200T PO
--- NOTE | 2022-05-01 12:50 | ED Headache ---
General Chief Complaint: Head/Cervical Problems Stated Complaint: R SIDE HEAD PAIN- SEEN 04/29 FOR SAME Nursing Triage Note: ARRIVED VIA AMB TO ROOM 08. COMPLAINS OF CONTINUING RIGHT SIDED HEAD PAIN AND WAS TOLD IF SHE DID NOT FEEL BETTER TO COME BACK. Source: patient Exam Limitations: no limitations History of Present Illness Date Seen by Provider: May 01, 2022 Time Seen by Provider: 12:41 Initial Comments This is a 57-year-old female with a history of AML and CML who is requiring BMT, chemotherapy, radiation and is currently in remission. She presented to the ER a few days ago for complaints of right-sided unilateral headache. States that her headache began last week and has been constant every day. states her pain is located in different spots on the right side of her head. Allergies and Home Medications Allergies Coded Allergies: No Known Drug Allergies (Unverified , 10/08/15) Patient Home Medication List Home Medication List Reviewed: Yes Amoxicillin/Potassium Clav (Amox Tr-K Clv 875-125 mg Tab) 875 Mg-125 Mg Tablet, 1 EACH PO BID Prescribed by: RICHARD GOMEZ on 04/29/22 1229 Atorvastatin Calcium (Atorvastatin Calcium) 80 Mg Tablet, 80 MG PO HS, (Report ed) Entered as Reported by: SHIRA SOTO on 09/03/21 0833 Cefdinir (Cefdinir) 300 Mg Capsule, 300 MG PO BID Prescribed by: DIONE BRISENO on 09/05/21 1140 Fenofibrate,Micronized (Fenofibrate) 134 Mg Capsule, 134 MG PO HS, (Reported) Entered as Reported by: LESLIE COVINGTON on 05/14/20 0217 Fluconazole (Diflucan) 200 Mg Tablet, 200 MG PO DAILY Prescribed by: RICHARD GOMEZ on 04/29/22 1231 Fluticasone Propionate (Fluticasone Propionate) 16 Gm [place].susp, 0 SPRAY NS DAILY Prescribed by: DIONE BRISENO on 09/05/21 1140 Fluticasone/Salmeterol (Fluticasone-Salmeterol 113-14) 1 Each Aer.pow.ba, 0 EACH IH RTBID Prescribed by: DIONE BRISENO on 09/05/21 1140 Guaifenesin/Codeine (Robitussin Ac (Codeine) Syrup) 10 Ml Syrp, 10 ML PO Q4H PRN for cough, preferably for PM use Prescribed by: DIONE BRISENO on 09/05/21 1140 Lansoprazole (Lansoprazole) 30 Mg Capsule.dr, 30 MG PO DAILY, (Reported) Entered as Reported by: CLARITA NAVARRO on 04/05/19 1342 Levothyroxine Sodium (Tirosint) 112 Mcg Capsule, 112 MCG PO DAILY, (Reported) Entered as Reported by: SHIRA SOTO on 09/03/21 0836 Lisinopril (Lisinopril) 10 Mg Tablet, 10 MG PO DAILY Prescribed by: NEL BRYSON on 05/01/22 1338 Pnv Cmb#21/Iron/Folic Acid ( Complete Caplet) 1 Each Tablet, 1 EACH PO DAILY, (Reported) Entered as Reported by: SHIRA SOTO on 09/03/21 0833 Past Pcnbabd-Tvuwjo-Aliezf Hx Patient Social History Tobacco Use?: No Alcohol Use?: Yes Alcohol Frequency: Once in a while Immunizations Up To Date Tetanus Booster (TDap): Unknown First/Initial COVID19 Vaccinat: 02/09/2021 Second COVID19 Vaccination Ahsan: 03/08/2021 Third COVID19 Vaccination Date: 02/09/2021 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: [employer] Seasonal Allergies Seasonal Allergies: No Past Medical History Surgery/Hospitalization HX: HX SPLEEN REMOVAL, GB, AND UTERUS BONE MARROW TRANSPLANT -AML >15 YEARS, Surgeries: Yes (bone marrow transplant '03, splenectomy, COLONOSCOPY) Abdominal, Gallbladder, Hysterectomy Respiratory: Yes (BRONCHITIS) Pneumonia Currently Using CPAP: No Currently Using BIPAP: No Cardiac: Yes High Cholesterol Neurological: No 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, Menopausal Sexually Transmitted Disease: No Genitourinary: No Gastrointestinal: Yes Gastroesophageal Reflux Musculoskeletal: Yes Arthritis Endocrine: Yes Hypothyroidsim HEENT: No Cancer: Yes Leukemia Did You Recieve Any Treatments: Yes What Type of Treatment Did You: Chemotherapy, Radiation Psychosocial: No Integumentary: No Blood Disorders: No Adverse Reaction/Blood Tranf: Yes (high fever) Family Medical History Diabetes mellitus 19 FATHER Hypercholesterolemia 19 FATHER 19 MOTHER G8 SISTER Diabetes, Hypertension Physical Exam Vital Signs Vital Signs - First Documented 05/01/22 12:00 Temp 35.9 Pulse 84 Resp 16 B/P (MAP) 147/110 (122) Pulse Ox 96 O2 Delivery Room Air Capillary Refill : Less Than 3 Seconds Height, Weight, BMI Height: 5'4.00" Weight: 164lbs. 5.0oz. 74.035655mf; 27.00 BMI Method:Stated Progress/Results/Core Measures Results/Orders My Orders Orders - NEL BRYSON APRN Ketorolac Injection (Toradol Injection) (05/01/22 13:00) Ct Head Wo (05/01/22 12:46) Lisinopril Tablet (Zestril Tablet) (05/01/22 13:45) Medications Given in ED Current Medications Medications Dose Ordered Sig/Dahlia Route Start Time Stop Time Status Last Admin Dose Admin Ketorolac Tromethamine 30 mg ONCE ONCE IVP 05/01/22 13:00 05/01/22 13:04 DC 05/01/22 13:27 30 MG Lisinopril 10 mg ONCE ONCE PO 05/01/22 13:45 05/01/22 13:46 DC 05/01/22 13:54 10 MG Vital Signs/I&O 05/01/22 05/01/22 12:00 14:00 Temp 35.9 Pulse 84 77 Resp 16 16 B/P (MAP) 147/110 (122) 155/101 Pulse Ox 96 96 O2 Delivery Room Air Room Air Blood Pressure Mean: 122 Departure Impression Primary Impression: Hypertension Additional Impression: Head ache Disposition: 01 HOME, SELF-CARE Condition: Improved Departure-Patient Inst. Decision time for Depature: 13:36 Referrals: SARAH SADLER MD (PCP/Family) Primary Care Physician Patient Instructions: High Blood Pressure ED Add. Discharge Instructions: Plan: 1. Continue all of your antibiotics and complete the full course even if you begin to feel better. 2. May take Tylenol or Ibuprofen as needed for headache per package. 3. We are starting on lisinopril 10 mg tablet daily for your elevated blood pressure. I would like you to follow-up with your primary care provider to discuss your elevated blood pressure and this recent change. 4. If you develop any concerning symptoms such as increasing headache, vision changes, weakness, slurred speech, chest pain, difficulty breathing or any other new or concerning symptoms please present to the emergency department. All discharge instructions reviewed with patient and/or family. Voiced understanding. Scripts Lisinopril (Lisinopril) 10 Mg Tablet 10 MG PO DAILY for 30 Days, #30 TAB 0 Refills Prov: NEL BRYSON APRN 05/01/22 NEL RBYSON APRN May 01, 2022 12:50
[2022-05-01] MEDS ORDERED: KETOROLAC 30 MG/ML VIAL IVP ONE (13:00)
--- NOTE | 2022-05-01 13:26 | Diagnostic Imaging Report ---
EXAMINATION: CT head without contrast. TECHNIQUE: Multiple contiguous axial images were obtained through the brain without the use of intravenous contrast. All CT scans use one or more of the following dose optimizing techniques: Automated exposure control, MA and/or KvP adjustment based on patient size and exam type or iterative reconstruction. HISTORY: Headache on the right. COMPARISON: 09/02/2021. 04/04/2019. FINDINGS: No large acute territorial ischemia, mass, or hemorrhage. No midline shift or mass effect. The ventricles, cortical sulci, and basilar cisterns are patent and unremarkable. The orbits are normal. Paranasal sinuses are normal. Mastoid air cells are clear. No soft tissue abnormality is seen. No osseous lesions or fractures are seen. IMPRESSION: 1. No large acute territorial ischemia, mass, or hemorrhage. Dictated by: Dictated on workstation # [id number]
[2022-05-01] MEDS ORDERED: LISI10TA25 PO (13:38)
[2022-05-01] MEDS ORDERED: lisINopril 10 MG (PRINIVIL) TABLET PO ONE (13:45)
[2022-05-01 14:00] VITALS: BP 155/101
== END 2022-05-01 14:00 | disposition home or self-care (01) ==
LOC: EDUNIT# 11:53 → ER 11:54
DX: I10 Essential (primary) hypertension (principal); C95.90 Leukemia, unspecified not having achieved remission; Z79.899 Other long term (current) drug therapy
CPT/HCPCS: 70450

== ENCOUNTER → 2022-10-16 | Outpatient (CLI) | payer OTHER, MEDICARE ==
[~2022-10-16] MED LIST changes: +LISI10TA25 PO
== END ==
LOC: LAB 13:50
PROVIDERS: ATTEND Internal Medicine
DX: R19.7 Diarrhea, unspecified (principal)
CPT/HCPCS: 87015; 87045; 87046; 87324; 87449; 87899

== ENCOUNTER 2022-10-30 05:37 | Outpatient (CLI) | payer OTHER, MEDICARE ==
[~2022-10-30] VITALS: Ht 162.6 cm; Wt 63.6 kg
[2022-10-30] MEDS ORDERED: LEVO25TA5 PO (10:13)
[2022-10-30] MEDS ORDERED: LEVO200C2 PO (10:13)
[2022-10-30] MEDS ORDERED: ALIR150P6 SQ (10:24)
[2022-10-30] MEDS ORDERED: DAPA1TAB5 PO (10:24)
== END 2022-10-30 10:30 | disposition home or self-care (01) ==
LOC: PREOP 05:37
PROVIDERS: ATTEND Internal Medicine
DX: Z01.818 Encounter for other preprocedural examination (principal)

== ENCOUNTER 2022-11-01 07:26 | Day surgery (SDC) | payer OTHER, MEDICARE ==
[~2022-11-01] VITALS: Ht 162.6 cm; Wt 63.6 kg
[~2022-11-01 07:26] MED LIST changes: +ALIR150P6 SQ; +DAPA1TAB5 PO; +LEVO200C2 PO; +LEVO25TA5 PO
[2022-11-01] MEDS ORDERED: LACTATED RINGERS 1,000 ML IV STA (07:30)
[2022-11-01] MEDS ORDERED: PROPOFOL INJECTION 50 ML IV ONE (07:41)
[2022-11-01 07:45] VITALS: BP 122/85
--- NOTE | 2022-11-01 07:59 | Pre-Op Note & Conscious Sedat ---
Pre-Operative Progress Note Date H&P Reviewed: Nov 01, 2022 Time H&P Reviewed: 07:58 History & Physical: H&P Reviewed, Patient Examed, No changes noted Pre-Op Diagnosis: colon polyp surviellance and diarrhea evaluation Conscious Sedation Pre-Proced ASA Score 2 For ASA 3 and 4: Consider anesthesia and medical clearance. Also, for patients with a history of failed moderate sedation consider anesthesia. Airway Lungs Heart ASA score ASA 1: a normal healthy patient ASA 2: a patient with a mild systemic disease (mid diabetes, controlled hypertension, obesity ASA 3: a patient with a severe systemic disease that limits activity (angina, COPD, prior Myocardial infarction) ASA 4: a patient with an incapacitating disease that is a constant threat to life (CHF, renal failure) ASA 5: a moribund patient not expected to survive 24 hrs. (ruptured aneurysm) ASA 6: a declared brain- patient whose organs are being harvested. For emergent operations, add the letter E after the classification Mallampati Classification Grade 1 Sedation Plan Analgesia, Amnesia, Plan communicated to team members, Discussed options with patient/fam, Discussed risks with patient/fam The patient is an appropriate candidate to undergo the planned procedure, sedation, and anesthesia. The patient immediately re-assessed prior to indication. SARAH SADELR MD Nov 01, 2022 07:59
--- NOTE | 2022-11-01 09:11 | Anesthesia-General Post-Op ---
MAC Patient Condition Mental Status/LOC: Same as Preop Cardiovascular: Satisfactory Nausea/Vomiting: Absent Respiratory: Satisfactory Pain: Controlled Complications: Absent Post Op Complications Complications None Follow Up Care/Instructions Patient Instructions None needed. Anesthesiology Discharge Order Discharge Order Patient is doing well, no complaints, stable vital signs, no apparent adverse anesthesia problems. No complications reported per nursing. BECK HANSEN CRNA Nov 01, 2022 09:11
[2022-11-01 09:12] VITALS: BP 111/64
[2022-11-01 09:15] VITALS: BP 123/74
--- NOTE | 2022-11-01 09:16 | Progress Note-Post Operative ---
Post-Procedure Note Physician (s)/Track Liner Operator (s) Physician SARAH SADLER MD Pre-Procedure Diagnosis Pre-Procedure Diagnosis: colon polyp surviellance and diarrhea evaluation Post-Procedure Diagnosis Post-operative diagnosis: Prior to undergoing colonoscopy digital rectal evaluation was performed. Anal central tone was normal and the perianal reflexes intact. No abnormalities noted inspection of the anal canal or distal rectal vault. The colonoscope was then inserted into the rectum and under direct visualization advanced to the cecum. The cecum was identified by identification of the ileocecal valve and appendiceal orifice. Photographic documentation was obtained. Quality the prep was good. A careful suction was made as the colonoscope was withdrawn. Findings there was no evidence for internal or external hemorrhoids. The rectum was unremarkable. Several small sigmoid diverticula were present without evidence for diverticulitis. The sigmoid colon was otherwise unremarkable. The descending colon and splenic flexure were unremarkable. Present the proximal transverse colon was 3 mm sessile polyp was photographed and biopsied and ablated with no subsequent blood loss. The hepatic flexure and ascending colon were unremarkable. There was a lobulated adenomatous polyp without evidence for ulceration noted in the cecum measuring 1.2 byx 6 mm in size it was photographed and biopsied and ablated in 2 locations with no blood loss. The smaller 2 mm cecal polyp was noted and biopsied and ablated as well. There is some subtle loss of the usual vasculature in the ascending colon and cecum a biopsy was obtained here as well as the rectum to evaluate for underlying colitis considering diarrhea. The distal 5 cm of terminal ileum were inspected and unremarkable on gross inspection. Assessment 1 sessile lobulated adenomatous polyp was removed from the cecum measuring 1.2 x 0.6 cm in size with 2 smaller 0.3 to 4 mm polyps 1 in the cecum and 1 in the proximal transverse colon also biopsied and ablated all with no blood loss. Will await on histopathology report but likely be advocating a 1 year surveillance colonoscopy due to the larger cecal polyp. 2 small sigmoid diverticulum were present without evidence of diverticulitis. 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 SARAH SADLER MD Nov 01, 2022 09:16
[2022-11-01 09:44] VITALS: BP 116/73
--- NOTE | 2022-11-04 15:46 | HISTORY AND PHYSICAL ---
DATE OF SERVICE: 11/01/2022 COLONOSCOPY HISTORY AND PHYSICAL HISTORY OF PRESENT ILLNESS: The patient is a 57-year-old white female who had a large dysplastic adenoma removed by Dr. Fonseca a year ago. She has been unable to get in to see him and has requested that I do the procedure here. It will be much more convenient for her. Has a 1-year followup recommended. In the last month, she has also developed diarrhea, 3-4 loose stools per day, occasionally with a small amount of blood that is bright red without associated pain. This did follow a round of antibiotics and we did check her for C. difficile, which was negative. She had a history of cholecystectomy, so we did initiate colestipol, which she reports has reduced diarrhea, becoming much more manageable. She has had no night sweats, chills, fever or change in weight. 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 She has a history of hyperlipidemia and is on thyroid replacement, likely consequence of high-dose radiation from her bone marrow transplantation for which she is now over a decade out. PHYSICAL EXAMINATION: GENERAL: Reveals a white female who appears to be in no acute distress. Weight was 142.8. VITAL SIGNS: Blood pressure 120/82. HEENT: Unremarkable. Sclerae nonicteric. CHEST: Clear to auscultation. CARDIOVASCULAR: Reveals a regular rate and rhythm without murmur, S3, or S4. ABDOMEN: Soft, supple without mass, organomegaly, or tenderness. EXTREMITIES: No cyanosis, clubbing or edema. ASSESSMENT: The patient is being set up for surveillance colonoscopy due to past history of reported dysplastic adenomatous polyp removed by Dr. Fonseca one year ago as well as a recent onset diarrhea about 4 weeks ago with occasional bright red blood per rectum. Prep instructions were given and questions were answered. Job ID: [id number] DocumentID: [id number] Dictated Date: 10/28/2022 18:06:42 Crystal Syrup Maker Date: 10/28/2022 18:33:00 Dictated By: SARAH SADLER MD <Dictated by SARAH SADLER MD> <Electronically signed by SARAH SADLER MD> 10/30/22 1011 MTDD
== END 2022-11-01 09:53 | disposition home or self-care (01) ==
LOC: ENDO 07:26
PROVIDERS: ATTEND Internal Medicine
DX: D12.0 Benign neoplasm of cecum (principal); D12.3 Benign neoplasm of transverse colon; K51.40 Inflammatory polyps of colon without complications; K52.832 Lymphocytic colitis; K57.30 Diverticulosis of large intestine without perforation or abscess without bleeding
CPT/HCPCS: 88305

== ENCOUNTER → 2023-05-02 | Outpatient (CLI) | payer OTHER, MEDICARE ==
--- NOTE | 2023-05-02 15:15 | Diagnostic Imaging Report ---
INDICATION: Routine screening. COMPARISON: 03/18/2022 and 03/16/2021. TECHNIQUE: 2D and 3D bilateral screening mammography was performed with CAD. FINDINGS: Both breasts are primarily involutional. The intraparenchymal lymph node in the outer right breast is stable. No new mass or malignant-appearing microcalcifications are seen. There are benign calcifications on the left. The axillae are unremarkable. IMPRESSION: No mammographic features suspicious for malignancy are identified. ACR BI-RADS Category 2: Benign findings. Result letter will be mailed to the patient. Note: At least 10% of breast cancer is not imaged by mammography. Dictated by: Dictated on workstation # [id number]
== END ==
LOC: RAD 10:03
PROVIDERS: ATTEND Internal Medicine
DX: Z12.31 Encounter for screening mammogram for malignant neoplasm of breast (principal)
CPT/HCPCS: 77063; 77067

== ENCOUNTER 2023-05-11 11:24 | Emergency (ER) | payer OTHER, MEDICARE ==
[~2023-05-11] VITALS: Ht 162 cm; Wt 62.0 kg
[2023-05-11] MEDS ORDERED: IBUPROFEN TABLET 200 MG TAB PO STA (11:54)
--- NOTE | 2023-05-11 12:00 | ED Cough/URI ---
General Chief Complaint: Cough/Cold/Flu Symptoms Stated Complaint: COUGH/SORE THROAT/FEVER Nursing Triage Note: ARRIVED VIA AMB TO ROOM 09. STATES SHE HAS BEEN SICK X4-5 WEEKS AND HAS FINISHED A ROUND OF AMOXICILLIN AND IS STILL SICK. STATES IT FEELS BRONCHIAL AND HER SINUSES HAS BEEN BLEEDING ALONG WITH A SORE THROAT. TESTED FOR COVID ON FRIDAY ET IT WAS NEG. (NINFA VILLAREAL) History of Present Illness Date Seen by Provider: May 11, 2023 Time Seen by Provider: 11:30 Initial Comments 58-year-old female reports cough, sinus congestion and intermittent fevers for the last 4 to 5 weeks. She finished a amoxicillin prescription 2 weeks ago with little to no improvement. She has had problems with sinusitis in the past. She is not currently using her sinus rinse or any steroid nasal sprays. She reports receiving all COVID vaccines and boosters as well as a yearly flu shot. She reports occasional myalgias, productive cough, and feeling worn down. She has not taken any Tylenol or ibuprofen today. She denies seasonal allergies. She is outdoors frequently, mowing [place]. She has an inhaler and nebulizer machine that she uses as needed. She denies using at the nebulizer over the last 4 to 5 weeks but has occasionally used her inhaler. Hx of CML and AML Timing/Duration: intermittent Prior Episodes/Possible Cause: occasional episodes Modifying Factors: Improves With Rest Associated Symptoms: cough, facial pain (frontal and maxillary sinuses), fever/chills (intermittently), headache (occasional, not today), nasal congestion, nasal drainage, sinus infection (NINFA VILLAREAL) Allergies and Home Medications Allergies Coded Allergies: No Known Drug Allergies (Unverified , 10/30/22) Patient Home Medication List Home Medication List Reviewed: Yes (NINFA VILLAREAL) Alirocumab (Praluent Pen) 150 Mg/Ml Pen.injctr, 150 MG SQ UD, (Reported) Entered as Reported by: MK SHEEHAN on 10/30/22 1024 Amoxicillin/Potassium Clav (Amox Tr-K Clv 875-125 mg Tab) 875 Mg-125 Mg Tablet, 1 EACH PO BID Prescribed by: NINFA VILLAREAL on 05/11/23 1245 Atorvastatin Calcium (Atorvastatin Calcium) 80 Mg Tablet, 80 MG PO HS, (Reported) Entered as Reported by: SHIRA SOTO on 09/03/21 0833 Dapagliflozin/Metformin HCl (Xigduo Xr 10 mg-1,000 mg Tab) 10 Mg-1,000 Mg Tab.bp.24h, 1 EACH PO UD, (Reported) Entered as Reported by: MK SHEEHAN on 10/30/22 1024 Fenofibrate,Micronized (Fenofibrate) 134 Mg Capsule, 134 MG PO HS, (Reported) Entered as Reported by: LESLIE COIVNGTON on 05/14/20 0217 Guaifenesin/Codeine (Robitussin Ac (Codeine) Syrup) 10 Ml Syrp, 10 ML PO Q4H PRN for cough, preferably for PM use Prescribed by: DIONE BRISENO on 09/05/21 1140 Lansoprazole (Lansoprazole) 30 Mg Capsule.dr, 30 MG PO DAILY, (Reported) Entered as Reported by: CLARITA NAVARRO on 04/05/19 1342 Levothyroxine Sodium (Levothyroxine) 200 Mcg Capsule, 200 MCG PO DAILY, (Reported) Entered as Reported by: MK SHEEHAN on 10/30/22 1013 Levothyroxine Sodium (Levothyroxine Sodium) 25 Mcg Tablet, 25 MCG PO DAILY, (Reported) Entered as Reported by: MK SHEEHAN on 10/30/22 1013 Pnv Cmb#21/Iron/Folic Acid ( Complete Caplet) 1 Each Tablet, 1 EACH PO DAILY, (Reported) Entered as Reported by: SHIRA SOTO on 09/03/21 0833 Prednisone (Prednisone) 20 Mg Tab, 40 MG PO DAILY Prescribed by: NINFA VILLAREAL on 05/11/23 1245 Review of Systems Review of Systems Constitutional: see HPI; No dizziness; fever, malaise EENTM: see HPI, nose congestion, throat pain Respiratory: see HPI, cough, phlegm Cardiovascular: no symptoms reported, see HPI Gastrointestinal: no symptoms reported, see HPI Genitourinary: no symptoms reported, see HPI Skin: no symptoms reported, see HPI (NINFA VILLAREAL) All Other Systems Reviewed Negative Unless Noted: Yes (NINFA VILLAREAL) Past Wapppdj-Bzgixn-Nxdusm Hx Patient Social History Tobacco Use?: No Alcohol Use?: Yes Alcohol Frequency: Once in a while (NINFA VILLAREAL) Immunizations Up To Date Tetanus Booster (TDap): Unknown First/Initial COVID19 Vaccinat: 02/09/2021 Second COVID19 Vaccination Ahsan: 03/08/2021 Third COVID19 Vaccination Date: 09/25/21, 04/03/22, 10/23/22 (NINFA VILLAREAL) Seasonal Allergies Seasonal Allergies: No (NINFA VILLAREAL) Past Medical History Surgery/Hospitalization HX: HX SPLEEN REMOVAL, GB, AND UTERUS BONE MARROW TRANSPLANT -AML >15 YEARS, Surgeries: Yes (bone marrow transplant '03, splenectomy, COLONOSCOPY) Abdominal, Gallbladder, Hysterectomy Respiratory: Yes (BRONCHITIS) Pneumonia Currently Using CPAP: No Currently Using BIPAP: No Cardiac: Yes High Cholesterol Neurological: No Reproductive Disorders: No Female Reproductive Disorders: Ovarian Cyst MID LEVEL PRACTITIONER History: Hysterectomy, Menopausal Sexually Transmitted Disease: No Genitourinary: No Gastrointestinal: Yes Gastroesophageal Reflux, Chronic Diarrhea Musculoskeletal: Yes Arthritis Endocrine: Yes Hypothyroidsim HEENT: No Cancer: Yes Leukemia Did You Recieve Any Treatments: Yes What Type of Treatment Did You: Chemotherapy, Radiation Psychosocial: No Integumentary: No Blood Disorders: No Adverse Reaction/Blood Tranf: Yes (high fever) (NINFA VILLAREAL) Family Medical History Reviewed Nursing Family Hx (MONONINFA [place]) Diabetes mellitus 19 FATHER Hypercholesterolemia 19 FATHER 19 MOTHER G8 SISTER Diabetes, Hypertension (NINFA VILLAREAL) Physical Exam Vital Signs - First Documented 05/11/23 11:30 Temp 36.5 Pulse 111 Resp 16 B/P (MAP) 124/89 (101) Pulse Ox 97 O2 Delivery Room Air (ELIAZAR CASTELAN MD) Capillary Refill : Less Than 3 Seconds (NINFA VILLAREAL) Height: 5'4.00" Weight: 164lbs. 5.0oz. 74.860252eu; 23.00 BMI Method:Stated General Appearance: WD/WN, no apparent distress HEENT: PERRL/EOMI, normal ENT inspection, TMs normal, pharynx normal (with PND, no erythema or exudate); No pharyngeal erythema, No tonsillar exudate; other (Tenderness over maxillary and frontal sinuses) Neck: non-tender, full range of motion, supple, normal inspection; No lymphadenopathy (R), No lymphadenopathy (L) Respiratory: chest non-tender, lungs clear, normal breath sounds, no respirator y distress Cardiovascular: normal peripheral pulses, regular rate, rhythm Gastrointestinal: normal bowel sounds, non tender, soft Extremities: normal range of motion, non-tender, normal inspection, no pedal edema, no calf tenderness, normal capillary refill Neurologic/Psychiatric: no motor/sensory deficits, alert, normal mood/affect, oriented x 3 Skin: normal color, warm/dry (NINFA VILLAREAL) Progress/Results/Core Measures Suspected Sepsis SIRS Temperature: Pulse: 111 Respiratory Rate: 16 Blood Pressure 124 /89 Mean: 101 (NINFA VILLAREAL) Results/Orders Lab Results Laboratory Tests Test 05/11/23 11:38 Range/Units Influenza Type A (RT-PCR) Not Detected Not Detecte Influenza Type B (RT-PCR) Not Detected Not Detecte SARS-CoV-2 RNA (RT-PCR) Not Detected Not Detecte Group A Streptococcus Screen NEGATIVE NEGATIVE (ELIAZAR CASTELAN MD) Vital Signs/I&O 05/11/23 05/11/23 11:30 13:02 Temp 36.5 Pulse 111 87 Resp 16 16 B/P (MAP) 124/89 (101) 111/82 Pulse Ox 97 95 O2 Delivery Room Air Room Air (ELIAZAR CASTELAN MD) Vital Signs/I&O Capillary Refill : Less Than 3 Seconds (NINFA VILLAREAL) Blood Pressure Mean: 101 Progress Note : Time: 11:30 Progress Note Patient assessed, she is afebrile she was slightly tachycardic but no hypotension when she arrived with a heart rate of 111 it is since decreased to 80-90. We will continue to monitor. We will check for strep, COVID and flu. Based on assessment and vital signs no indication for lab work or chest x-ray at this time. Will give ibuprofen 600 mg. 1230 COVID, influenza and strep negative. Patient reports slight improvement in symptoms since taking the ibuprofen. We will treat her with Augmentin for the sinus infection, prednisone and stlv-ubp-iwbbafh nasal steroid. Discharge instructions and return precautions reviewed with her. Her heart rate has remained 70-90 throughout her stay and her SaO2 has been 97 to 99%. She continues to be afebrile. (NINFA VILLAREAL) Departure Impression Primary Impression: Sinusitis Qualified Codes: J01.11 - Acute recurrent frontal sinusitis Additional Impression: URI (upper respiratory infection) Qualified Codes: J06.9 - Acute upper respiratory infection, unspecified Disposition: 01 HOME, SELF-CARE Condition: Improved Departure-Patient Inst. Decision time for Depature: 11:55 (NINFA VILLAREAL) Referrals: SARAH SADLER MD (PCP/Family) Primary Care Physician Patient Instructions: Cough, Adult (DC), Sinusitis, Adult (DC), Viral Upper Respiratory Infection, Adult (DC) Add. Discharge Instructions: Use your Meche pot every 4-6 hours as needed for nasal congestion and sinus pressure. Alternate between Tylenol 650 mg and ibuprofen 600 mg every 4 hours for fever or generalized discomfort. Use Flonase or Nasonex mfod-dpq-dkqynkb nasal spray 2 squirts in each nare twice daily for the next 10 days and then once daily. Take antibiotic and prednisone as prescribed. Follow-up with your primary care provider in 5 to 7 days, sooner if symptoms or not improving. Return to the emergency department for new, urgent healthcare problems. All discharge instructions reviewed with patient and/or family. Voiced unders tanding. Scripts Amoxicillin/Potassium Clav (Amox Tr-K Clv 875-125 mg Tab) 875 Mg-125 Mg Tablet 1 EACH PO BID, #20 TAB 0 Refills Prov: NINFA VILLAREAL 05/11/23 Prednisone (Prednisone) 20 Mg Tab 40 MG PO DAILY, #6 TAB 0 Refills Prov: NINFA VILLARELA 05/11/23 ATTENDING PHYSICIAN NOTE: I was physically present as attending physician in the emergency department during the care of this patient, but I was not directly involved in the decision making or delivery of care for this patient. (ELIAZAR CASTELAN MD) Copy Copies To 1: SARAH SADLER MD, AMY ARNP May 11, 2023 12:00 ELIAZAR CASTELAN MD May 12, 2023 10:04
[2023-05-11] MEDS ORDERED: PRD20T PO (12:45)
[2023-05-11] MEDS ORDERED: AMOX1TAB12 PO (12:45)
[2023-05-11 13:02] VITALS: BP 111/82
== END 2023-05-11 13:02 | disposition home or self-care (01) ==
LOC: EDUNIT# 11:24 → ER 11:26
DX: J01.00 Acute maxillary sinusitis, unspecified (principal); J32.1 Chronic frontal sinusitis; R00.0 Tachycardia, unspecified; Z79.52 Long term (current) use of systemic steroids; Z20.822 Contact with and (suspected) exposure to COVID-19
CPT/HCPCS: 87430; 87636; 99283

== ENCOUNTER 2023-09-03 06:03 | Outpatient (CLI) | payer OTHER, MEDICARE ==
[~2023-09-03] VITALS: Ht 162.6 cm; Wt 63.2 kg
[~2023-09-03 06:03] MED LIST changes: +PRD20T PO
[2023-09-03] MEDS ORDERED: LISI10TA25 PO ×2 (08:45)
[2023-09-03] MEDS ORDERED: COLE1TAB PO ×2 (08:45)
[2023-09-03] MEDS ORDERED: BUDE3CAP10 PO ×2 (08:45)
== END 2023-09-03 08:52 | disposition home or self-care (01) ==
LOC: PREOP 06:03
PROVIDERS: ATTEND Internal Medicine
DX: Z01.818 Encounter for other preprocedural examination (principal)

== ENCOUNTER 2023-09-05 09:04 | Day surgery (SDC) | payer OTHER, MEDICARE ==
--- NOTE | 2023-09-02 11:28 | HISTORY AND PHYSICAL ---
DATE OF SERVICE: 09/05/2023 COLONOSCOPY HISTORY AND PHYSICAL HISTORY OF PRESENT ILLNESS: The patient is a 58-year-old white female with history of colon polyps as well as microscopic colitis. She reports she has had increasing diarrhea with a couple episodes of fecal incontinence. This is exacerbated underlying depression. She reports that she has been treated in the past for depression and was requesting medication again. She reports that she took about 6 months' worth of therapy. She does not remember, which antidepressant it was, but there was significant benefit and then she stopped the medication and had not had significant relapse until now, this was over 10 years ago. She reports on average 3-4 loose stools per day, her diarrhea is more significant in that she will have a little bit of bright red blood at the end. She denies any associated cramping. PAST MEDICAL HISTORY: Significant for CML, requiring bone marrow transplant, now over 10 years ago. PHYSICAL EXAMINATION: GENERAL: Reveals a white female, slightly depressed affect. Additionally, denying suicidal ideation or intent. VITAL SIGNS: Weight is stable at 139 pounds, blood pressure 122/88. HEENT: Unremarkable. Sclerae nonicteric. CHEST: Clear. CARDIOVASCULAR: Reveals regular rate and rhythm without murmur, S3, or S4. ABDOMEN: Soft, supple without mass, organomegaly, or tenderness. SKIN: Evaluation did reveal a small cyst on her upper back that she requested excision when she feels that she also has concerns about a tick bite as she went outdoors a lot. She denies any associated pain. ASSESSMENT AND PLAN: 1. The patient is being set up for surveillance colonoscopy due to past history of colon polyps and recurrent diarrhea with history of microscopic colitis. For this reason, we will need biopsies even if exam otherwise appears to be normal. Prep instructions were given and questions were answered. 2. Probable sebaceous cyst on the back. We will have her return for excision with Maria Isabel GARCIA. 3. Major depressive disorder, aggravated by diarrhea, we will initiate fluoxetine 20 mg daily. Expectations discussed. I will see her back in 1 month. Job ID: [id number] DocumentID: [id number] Dictated Date: 09/02/2023 10:13:00 Specialty Foods Cook Date: 09/02/2023 11:26:00 Dictated By: SARAH SADLER MD [facility]
[~2023-09-05] VITALS: Ht 162.6 cm; Wt 63.2 kg
[~2023-09-05 09:04] MED LIST changes: +BUDE3CAP10 PO; +COLE1TAB PO
[2023-09-05] MEDS ORDERED: LACTATED RINGERS 1,000 ML 1,000 ML IV STA (09:10)
--- NOTE | 2023-09-05 09:21 | Pre-Op Note & Conscious Sedat ---
Pre-Operative Progress Note Date H&P Reviewed: Sep 05, 2023 Time H&P Reviewed: 09:20 History & Physical: H&P Reviewed, Patient Examed, No changes noted Pre-Op Diagnosis: Hx of polyps and diarrhea Moderate Sedation PreProcedure ASA Score 2 Airway Lungs Heart ASA score ASA 1: a normal healthy patient ASA 2: a patient with a mild systemic disease (mid diabetes, controlled hypertension, obesity ASA 3: a patient with a severe systemic disease that limits activity (angina, COPD, prior Myocardial infarction) ASA 4: a patient with an incapacitating disease that is a constant threat to life (CHF, renal failure) ASA 5: a moribund patient not expected to survive 24 hrs. (ruptured aneurysm) ASA 6: a declared brain- patient whose organs are being harvested. For emergent operations, add the letter E after the classification Mallampati Classification Grade 2 Sedation Plan Analgesia, Amnesia, Plan communicated to team members, Discussed options with patient/fam, Discussed risks with patient/fam The patient is an appropriate candidate to undergo the planned procedure, sedation, and anesthesia. The patient immediately re-assessed prior to indication. SARAH SADLER MD Sep 05, 2023 09:21
[2023-09-05 09:34] VITALS: BP 115/82
[2023-09-05] MEDS ORDERED: proPOfol INJECTION 200 MG/20 ML VIAL IV ONE (10:34)
[2023-09-05 10:35] VITALS: BP 96/62
--- NOTE | 2023-09-05 10:38 | Progress Note-Post Operative ---
Post-Procedure Note Physician (s)/Solution Consultant (s) Physician SARAH SADLER MD Pre-Procedure Diagnosis Pre-Procedure Diagnosis: Hx of polyps and diarrhea Post-Procedure Diagnosis Post-operative diagnosis: Prior to undergoing colonoscopy digital rectal evaluation was performed. Anal sphincter tone was normal and the perianal reflexes intact. No abnormalities were noted on digital inspection anal canal obstructive vault. The colonoscope was then inserted into the rectum and under direct visualization advanced to the cecum. The cecum was identified by the indication of the ileocecal valve and cecal strap. Photographic documentation was obtained. Careful inspection was made as the colonoscope withdrawn. Quality prep was fair. Findings there are no evidence for internal or external hemorrhoids and the rectum was unremarkable to visual inspection. Due to history of microscopic colitis and current diarrhea exacerbation biopsies from the rectum as well as the ascending colon were obtained and submitted for histopathology. The sigmoid colon revealed a number of small diverticulum without evidence for diverticulitis. The descending colon and splenic flexure unremarkable. Present the distal transverse colon was a 3 mm sessile adenomatous appearing polyp it was biopsied and ablated with no subsequent blood loss. The remainder the transverse colon hepatic flexure and ascending colon were unremarkable. An 8 mm we got approximately 1 cm sessile lobulated adenomatous appearing polyp was noted with uniform vascularity noted on NBI it was biopsied and ablated with several drop blood loss remainder of the cecum was unremarkable as was the terminal ileum. A biopsy was obtained from the ascending colon for microscopic colitis evaluation as well. A/P 1. 2 sessile polyps adenomatous in appearance were removed via hot forceps from the distal transverse colon measuring 3 to 4 mm in size and a 1 cm polyp in the cecum biopsied and cauterized as well with no significant blood loss. Will await histopathology report but we will not likely advocate 1 year screening interval. 2. Mild diverticular disease confined to the sigmoid colon is present. 3. For evaluation of diarrhea and individual with past history of microscopic colitis biopsies in the rectum and ascending colon were submitted for histopathology. SARAH SADLER MD Sep 05, 2023 10:38
[2023-09-05 10:40] VITALS: BP 96/62
[2023-09-05 10:56] VITALS: BP 96/62
--- NOTE | 2023-09-05 11:46 | Anesthesia-General Post-Op ---
MAC Patient Condition Mental Status/LOC: Same as Preop Cardiovascular: Satisfactory Nausea/Vomiting: Absent Respiratory: Satisfactory Pain: Controlled Complications: Absent Post Op Complications Complications None Follow Up Care/Instructions Patient Instructions None needed. Anesthesiology Discharge Order Discharge Order Patient was doing well after the procedure with no complaints, stable vital signs, no apparent adverse anesthesia problems. No complications reported per nursing. VIOLETA VALENCIA DO Sep 05, 2023 11:46
== END 2023-09-05 11:08 | disposition home or self-care (01) ==
LOC: ENDO 09:04
PROVIDERS: ATTEND Internal Medicine
DX: D12.0 Benign neoplasm of cecum (principal); D12.3 Benign neoplasm of transverse colon; K62.1 Rectal polyp; K62.89 Other specified diseases of anus and rectum; K57.30 Diverticulosis of large intestine without perforation or abscess without bleeding; K63.89 Other specified diseases of intestine; R19.7 Diarrhea, unspecified; F32.9 Major depressive disorder, single episode, unspecified